=== PATIENT | female | born 1940 | race Caucasian/White ===

== ENCOUNTER → 2018-01-01 12:19 | Outpatient (CLI) | payer MEDICARE, OTHER, SELFPAY ==
--- NOTE | 2018-01-01 12:27 | BI_ITS ---
MAMMOGRAPHY - BILATERAL SCREENING REASON FOR EXAM: Female, 77 years old. Routine annual screening examination. PERTINENT HISTORY: Sister with breast cancer. TECHNIQUE: Digital bilateral breast lizette (3D mammographic acquisition) in the CC and MLO projections. 2-D mediolateral oblique (MLO) and craniocaudad (CC) views of both breasts were obtained. CAD: Full Field Digital Mammography with Computer Added Detection was performed. COMPARISON: Comparison is made with prior study dated November 16, 2016 and November 16, 2015. FINDINGS: Breast Composition: The breasts are heterogeneously dense, which may obscure small masses. I suspect a 6.1 mm slightly irregular nodular density seen on the cranial caudad view of the left breast laterally. The patient will be recalled for additional views including compression spot views in the craniocaudad projection and 90 degree lateral view of the left breast. Stable asymmetry of breast tissue with more breast tissue is seen in the right breast as compared to the left side. No other significant abnormalities are identified. BI/SCREENING MAMM (CAD), BILAT IMPRESSION: Suggestion of a 6.1 mm nodular density in the lateral aspect of the left breast as seen on the craniocaudad view. The patient will be called for additional views of the breast. Recall Side: Left Breast ASSESSMENT CATEGORY: BIRADS Category 0: Incomplete. Need additional imaging evaluation. A letter regarding these results will be sent to the patient by the facility within 30 days. Approximately 10% of breast cancers are not detected by mammography. A normal mammogram should not delay biopsy of a clinically suspicious abnormality. [id number] Electronically Signed: Samuel Rhodes MD at 14:24 EST Tel [phone], Service support ,
--- NOTE | 2018-01-01 12:28 | BD_ITS ---
STUDY: DUAL ENERGY X-RAY ABSORPTIOMETRY / DXA REASON FOR EXAM: Female, 77 years old. The patient is postmenopausal. Loss of height. TECHNIQUE: Bone Mineral Density (BMD) measurements of lumbar spine and bilateral hips were obtained. COMPARISON: Comparison is made with prior study dated November 16, 2015. FINDINGS: Lumbar Spine (L1-L4): g/cm2 (1.215) / T-score (0.1) / Z-score (1.9) Findings are suggestive of normal bone density with a low fracture risk. Left Femur Total: g/cm2 (0.768) / T-score (-1.9) / Z-score (-0.1) Left Femoral Neck: g/cm2 (0.681) / T-score (-2.6) / Z-score (-0.6) Right Femur Total: g/cm2 (0.826) / T-score (-1.4) / Z-score (0.4) Right Femoral Neck: g/cm2 (0.745) / T-score (-2.1) / Z-score (-0.1) The T-Scores on the most recent prior examination were: Lumbar Spine (L1-L4): There has been improvement of bone density since the previous examination. Left Femur Total: which represents an improvement of 2.3%. Right Femur Total: which represents an improvement of 1.5%. BD/Dexa Bone Density Study IMPRESSION: The patient is considered osteoporotic as outlined below according to World Ivan Organization (WHO) criteria with a high fracture risk. There has been improvement of bone density since the previous examination. Reference Information: The T-score is the number of standard deviations above or below the standard which is normal for young adults at their peak bone mineral density. The World Health Organization (WHO) interprets the T-scores as follows: Above -1 Normal bone density Between -1 and -2.5 Osteopenia Equal to / or below -2.5 Osteoporosis As a practical clinical guideline, osteopenia may be graded as follows: Mild -1 through -1.5 Moderate -1.6 through -2.0 Severe -2.1 through -2.4 The Z-score is the number of standard deviations above or below age-matched controls. A Z-score of less than -1.5 would be considered abnormal. References: 1. NIH Osteoporosis and Related Bone Diseases http://www.osteo.org 2. International Society for Clinical Densitometry http://www.iscd.org 3. National Osteoporosis Foundation http://www.nof.org Electronically Signed: Samuel Rhodes MD at 9:33 EST Tel [phone], Service support ,
--- OUTSIDE RECORDS SUMMARY | 2018-02-13 03:52 | XMS RPT_ITS | Continuity of Care Document ---
:1940 Author Organization [facility] Address [address] [facility] [address] [place] [address] Phone Care Team Providers Name Role Phone Raine Gomez MD Unavailable Ronna Colindres MD Unavailable DANIAL Mayorga Unavailable Unavailable Unavailable Unavailable Problems Name Dates Details Allergic rhinitis (J30.9, 477.9) Comments: can take claritin prn Status: Active Bilateral hearing loss, unspecified hearing loss type (H91.93, 389.9) Comments: at this point not affect ADL if does then will look to get. high freq. Status: Active BMI 26.0-26.9,adult (Z68.26, V85.22) Status: Active BMI 27.0-27.9,adult (Z68.27, V85.23) Comments: 27.1 Status: Active Colon polyps (K63.5, 211.3) Comments: 10/11, 11-15, 11-20 good Status: Active Current nonsmoker (Renamed from Current non-smoker) (Z78.9, V49.89) Status: Active Deliveries (Parity) Comments: 4 Status: Active Diverticulosis (K57.90, 562.10) Comments: doing okay had episode 7-17. wnat on hadn for bad flare because gets bad fast. on fiber talk about diet. Status: Active Encounter for routine adult health examination with abnormal findings (Z00.01, V70.0) Comments: 104-18 here for [facility] Physical with Dr. Gomez, reviewed with patient all questions. colonoscopy 10-16 due in 10 years. mammogram 11-16-16 and BD due 11-16-15, with Medicare guidelines, pap w as 2014, immunizations are up to date amita check at [facility] for prevnar. dental and eye 2018, 6CIT=, PHQ-9=0, last eye exam was with Dr. Membreno in the summer of 2018 and included glaucoma screening Status: Active Encounter for screening mammogram for breast cancer (Renamed from Visit for screening mammogram) (Z12.31, V76.12) Status: Active GERD (gastroesophageal reflux disease) (K21.9, 530.81) Comments: pepcid workign well had PPI if needs to use spraingly for 2 week course if bad flare. 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 . 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 he uric acid was up withthis Status: Active Pregnancies () Comments: 4 Status: Active Stress reaction (Renamed from Acute reaction to stress) (F43.0, 308.9) Comments: boyfriend has esophageal cancer to liver Status: Active Medications Name Dates Details Pepcid 20 MG Oral Tablet 1 (one) Tablet bid for 0 days Quantity: 60 {Tablet} Refills: 6 Ordered:05-Jul-2017 Jason GARRETT, Raine Ferrer MD, Raine Dunlap Start : 05-Jul-2017 Active Probiotic Mature Adult Oral Capsule 4 qd gummies Active Prolia 60 MG/ML Subcutaneous Solution uad Milliliter 60mg SC q 6 months for 0 days Quantity: 1 {Pre-filled_Pen_Syringe} Refills: 1 Ordered:05-Jul-2017 Jason GARRETT, Raine Escobar MD Start : 05-Jul-2017 Active Vitamin D3 1000 UNIT Oral Capsule 1 qd (1000 UNIT) Active Womens One Daily Oral Tablet 1 qd Active Comments:adalbertomies ACTONEL, 150MG (Oral Tablet) 1 Tablet monthly for 90 days Quantity: 12 {Tablet} Refills: 3 Ordered:27-Apr-2010 Sonia Phillips LPN Start : 02-Nov-2009 End : 27-Apr-2010 Inactive ALIGN, 4MG (Oral Capsule) 1 (one) Capsule Capsule daily for 0 days Quantity: 30 {Capsule} Refills: 0 Ordered:10-Sep-2014 DANIAL Mayorga Start : 08-Jun-2014 End : 10-Sep-2014 Inactive MILAGROS-D 12 HOUR, 60-120MG (Oral Tablet Extended Release 12 Hour) 1 Tablet ER 12HR q12 hr for 0 days Quantity: 20 {Tablet_ER_12HR} Refills: 0 Ordered:06-Jun-2010 Sonia Phillips LPN Start : 27-Apr-2010 End : 06-Jun-2010 Inactive AMOXICILLIN, 875MG (Oral Tablet) 1 Tablet q12h for 7 days Quantity: 14 {Tablet} Refills: 0 Ordered:14-Aug-2012 Karla Tabares CNP Start : 14-Aug-2012 End : 21-Aug-2012 Inactive AMOXICILLIN-POT CLAVULANATE ER, 1000-62.5MG (Oral Tablet Extended Release 12 Hour) 1 Tablet ER 12HR q12 for 10 days Quantity: 20 {Tablet_ER_12HR} Refills: 0 Ordered:02-Sep-2012 Karla Tabares CNP Start : 02-Sep-2012 End : 12-Sep-2012 Inactive Aspirin EC Low Strength 81 MG Oral Tablet Delayed Release 1 (one) Tablet DR Tablet DR qd for 0 days Quantity: 30 {Tablet} Refills: 0 Ordered:05-Jul-2017 DANIAL Mayorga Start : 07-Sep-2015 End : 05-Jul-2017 Inactive Augmentin 875-125 MG Oral Tablet 1 Tablet bid for 10 days Quantity: 20 {Tablet} Refills: 0 Ordered:05-Jul-2017 Jason GARRETT, Raine Ferrer MD, Raine Dunlap Start : 05-Jul-2017 End : 15-Jul-2017 Inactive BACTRIM DS, 800-160MG (Oral Tablet) 1 Tablet bid for 7 days Quantity: 14 {Tablet} Refills: 0 Ordered:23-Jul-2012 Danellemikey ZEKarla Start : 23-Jul-2012 End : 30-Jul-2012 Inactive BENTYL, 10MG (Oral Capsule) 1 (one) Capsule every 6 hours cramping prn for 0 days Quantity: 20 {Capsule} Refills: 0 Ordered:10-Sep-2014 DANIAL Mayorga Start : 03-Sep-2014 End : 10-Sep-2014 Inactive CALCIUM 600, 600MG (Oral Tablet) bid (600 MG) Inactive Cipro 500 MG Oral Tablet 1 (one) Tablet bid for 0 days Quantity: 14 {Tablet} Refills: 0 Ordered:07-Aug-2016 DANIAL Mayorga Start : 30-Mar-2016 End : 07-Aug-2016 Inactive Comments:03-30-16 called into [facility] in [place] [phone] UTI KETEK, 400MG (Oral Tablet) 2 (two) Tablet(s) QD for 5 days Quantity: 10 {Tablet} Refills: 0 Ordered:25-Jan-2006 Sonia Phillips LPN Start : 25-Jan-2006 End : 22-Jun-2006 Inactive Comments:01/25/06 Samples given per db/edith Omeprazole 40 MG Oral Capsule Delayed Release 1 (one) Capsule qd for 0 days Quantity: 30 {Capsule} Refills: 3 Ordered:05-Jul-2017 DANIAL Mayorga Start : 13-Apr-2017 End : 05-Jul-2017 Inactive PROBIOTIC (Oral Capsule) qd Inactive PROMETHAZINE HCL, 25MG (Oral Tablet) 1 (one) Tablet every 6 hours prn for 0 days Quantity: 10 {Tablet} Refills: 0 Ordered:10-Sep-2014 DANIAL Mayorga Start : 03-Sep-2014 End : 10-Sep-2014 Inactive PROVENTIL HFA, 108 (90 Base)MCG/ACT (Inhalation Aerosol Solution) 1 Aerosol Soln tid prn for 0 days Quantity: 1 {Aerosol_Soln} Refills: 0 Ordered:06-Jun-2010 Sonia Phillips LPN Start : 30-May-2010 End : 06-Jun-2010 Inactive VALTREX, 1GM (Oral Tablet) 1 gram Tablet tid for 6 days Quantity: 18 {Tablet} Refills: 0 Ordered:06-Nov-2006 REAGAN AGOSTO CNP Start : 06-Nov-2006 End : 13-Nov-2006 Inactive VITAMIN D3, 2000UNIT (Oral Tablet Chewable) bid (2000 UNIT) Inactive Zithromax Z-Shahid 250 MG Oral Tablet uad Tablet as directed until gone for 0 days Quantity: 1 {Package} Refills: 0 Ordered:12-Apr-2017 DANIAL Mayorga Start : 12-Feb-2017 End : 12-Apr-2017 Inactive Comments:dispense one pack ZOSTAVAX, 61564NUS/0.65ML (Subcutaneous Solution Reconstituted) 1 For Solution once IM for 0 days Quantity: 1 {For_Solution} Refills: 0 Ordered:08-Jul-2012 DANIAL Mayorga Start : 27-May-2012 End : 08-Jul-2012 Inactive CRANBERRY EXTRACT, 250MG (Oral Tablet) qd (250 MG) End : 08-Jun-2014 Discontinued EVISTA, 60MG (Oral Tablet) one QD (60 MG) End : 12-Sep-2007 Discontinued EVISTA, 60MG (Oral Tablet) 1 (one) Tablet QD for 0 days Quantity: 90 {Tablet} Refills: 1 Ordered:08-Jun-2014 Slarb EDGE POLISHER, Yesika Start : 30-Oct-2013 End : 08-Jun-2014 Discontinued HydroCHLOROthiazide 12.5 MG Oral Capsule 1 (one) Capsule qd for 0 days Quantity: 90 {Capsule} Refills: 3 Ordered:01-Sep-2016 Raine Gomez MD, MD, Raine Dunlap Start : 01-Sep-2016 End : 01-Sep-2016 Discontinued Hydrocodone-Acetaminophen 5-325 MG Oral Tablet 1 (one) Tablet Tablet q 6 hours prn for 0 days Quantity: 30 {Tablet} Refills: 0 Ordered:02-Jan-2017 Kathleen Schwartz Start : 14-Mar-2016 End : 02-Jan-2017 Discontinued Comments:thirty MOBIC, 7.5MG (Oral Tablet) 1 Tablet bid prn for 0 days Quantity: 60 {Tablet} Refills: 3 Ordered:08-Jun-2014 Slarb EDGE POLISHER, Yesika Start : 23-Oct-2013 End : 08-Jun-2014 Discontinued Allergies and Adverse Reactions Name Dates Details No Known Allergies (Allergy) Onset: 29-May-2013 Status: Inactive No Known Drug Allergies (Allergy) Status: Active Past Medical History Name Dates Details Abdominal pain (R10.9, 789.00) Comments: ? gastritis, looks viral like viral GE, consider GB, consider PUD. pt has had CT scan in last two months US too all negative except for incidental venous congestion Status: Inactive as of 10-Sep-2014 Abdominal pain (R10.9, 789.00) Comments: upper is resolved, now left lower, checking urine stay on probioticGall bladder xray normal. no labs done but all gone. now pain more localized to llq. she thought where ovaries are. colonscopy about 2 years ago was okay. ? diverticulitis and atb help. i will get CT scan abd rule otu anything more concerning. then if pain returns upper quad then HIDA scan. if pain continues in lower then pelvic us to better see ovaries. Status: Inactive as of 10-Sep-2014 Abnormal EKG (R94.31, 794.31) Comments: with insurance policy abnormal. 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 improve wtih bowel. CT and GB work up negative. ding better. keep hydrated. eating okay now. still some constipated stool. using citrocal. if went more than 4 days with BM then take MOM. had colonscopy [address]. [address] jean. will leave up tto him if want SBFT. Status: Resolved as of 28-May-2015 Cerumen impaction (H61.20, 380.4) Status: Resolved as of 08-Nov-2017 Contusion of other part of head, initial encounter (S00.83XA, 920) Comments: better now no residual Status: Resolved as of 08-Nov-2017 Cough (R05, 786.2) Status: Inactive as of 17-Oct-2012 Dysuria (R30.0, 788.1) Comments: talk about ways to help not get UTI. only 2 in last year. cut back on sugar. some will get cranberries tqablet. lots water. Status: Inactive as of 27-Oct-2013 Fall at home (W19.XXXA, E888.9) Comments: long talk about lifting feet when walk not use both arms to carry and have support hand. handout given will walking regularly and exercise. Status: Resolved as of 08-Nov-2017 Heart burn (R12, 787.1) Comments: better now use prn if get Status: Resolved as of 01-Sep-2016 Herpes zoster without complication (B02.9, 053.9) Comments: ? shingles based on pts previous similar presentation vs dermatitis contact.Pt going on vacation, to return if worsening. Status: Resolved as of 14-Jul-2008 Hyperactive bowel sounds (R19.12, 787.5) Status: Inactive as of 05-Nov-2015 Hyperkalemia (E87.5, 276.7) Comments: recheck Status: Inactive as of 14-Mar-2016 Knee internal derangement, left (M23.92, 717.9) Comments: saw Dr. madsen and xrays good 12-21 Status: Inactive as of 14-Mar-2016 Knee pain (M25.569, 719.46) Comments: put on mobic by Dr. madsen ortho sx in [place]. OA and also tried glucosamin not help amita inject left knee needs injected. 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) Status: Inactive as of 05-Nov-2015 Need for prophylactic vaccination and inoculation against influenza (Z23, V04.81) Status: Resolved as of 08-Jan-2017 Osteopenia (M85.80, 733.90) Comments: bd - Status: Inactive as of 28-May-2015 Other specified viral infection, in conditions classified elsewhere and of unspecified site (B97.89, 079.89) Status: Inactive as of 17-Oct-2012 Overweight (BMI 25.0-29.9) (E66.3, 278.02) Comments: right now where want to be Status: Resolved as of 05-Jul-2017 Polyuria (R35.8, 788.42) Status: Inactive as of 14-Mar-2016 Prediabetes (R73.03, 790.29) Comments: 08-21-16 5.8% good now Status: Resolved as of 02-Jan-2017 Pre-operative clearance (Z01.818, V72.84) Comments: 11-24-13 TKA. will hold evista starting now because DVT increase with that. wlill restart once mobile. will hold mobic 1 week before surgery. told if any signs and symptoms of infectionprior to surgery call. Status: Inactive as of 10-Sep-2014 Right upper quadrant pain (R10.11, 789.01) Status: Inactive as of 05-Nov-2015 Screening for breast cancer (Z12.39, V76.10) Status: Inactive as of 10-Sep-2014 Screening for hyperlipidemia (Z13.220, V77.91) Status: Inactive as of 28-May-2015 Screening for malignant neoplasm of cervix (Z12.4, V76.2) Comments: scope 1-12 good Status: Resolved as of 08-Jan-2017 Sinusitis, chronic (J32.9, 473.9) Comments: better now on zpak Status: Inactive as of 17-Oct-2012 SOB (shortness of breath) on exertion (R06.02, 786.05) Comments: think just deconditioning but had long discussion about heart signs and symptoms if worse--stress. recommend exercise for conditioning--think help in past Status: Resolved as of 14-Jul-2008 Unspecified Diagnosis Status: Inactive as of 17-Oct-2012 Urinary frequency (R35.0, 788.41) Status: Inactive as of 17-Oct-2012 UTI (lower urinary tract infection) (N39.0, 599.0) Status: Inactive as of 10-Sep-2014 Procedures Procedure Dates Details COLONOSCOPY, DIAGNOSTIC (28417) Completed Oct-2005 Comments: adenoma, 11-29-15 Last Pap Smear, Date Completed 25-Aug-2005 left knee replacement 11-24-13 Completed Date Value Details 16-Nov-2016 SCREENING MAMM (CAD), BILAT Result: Comments: See Note; NOTES: [facility] [address] [place] [address] SCREENING MAMM (CAD), BILAT MR#: [id number] Acct: [id number] Name: ARIEL MATA Rep #: [id number] : 1940 F 76 From: Samuel Rhodes MD PCP: Raine Gomez MD Status: REG CLI Study: SCREENING MAMM (CAD), BILAT Date of Exam: 11/16/16 Exam# [id number] Ordering Dr: Raine Gomez MD M AMMOGRAPHY - BILATERAL SCREENING REASON FOR EXAM: Female, 76 years old. Routine annual screening examination. PERTINENT HISTORY: Sister with breast cancer. TECHNIQUE: Digital bilateral breast lizette (3 D mammographic acquisition) in the CC and MLO projections. 2-D mediolateral oblique (MLO) and craniocaudad (CC) views of both breasts were obtained. CAD: Full Field Digital Mammography with Computer Add ed Detection was performed. COMPARISON: Comparison is made with prior examination dated November 16, 2015 and November 03, 2014. FINDINGS: Breast Composition: The b reasts are heterogeneously dense, which may obscure small masses. There are no dominant masses or suspicious calcifications. No other significant abnormalities are identified. There has been no signif icant change since the prior study. HPBI/SCREENING MAMM (CAD), BILAT IMPRESSION: Stable bilateral screening mammogram. Yearly follow-up mammogram recommended. (A) ASSESSMENT CATEGORY: BIRADS Category 1: Negative. A letter regarding these results will be sent to the patient by the facility within 30 days. Ap proximately 10% of breast cancers are not detected by mammography. A normal mammogram should not delay biopsy of a clinically suspicious abnormality. [id number] Electronically Signed: Samuel Rhodes MD at 13:03 EDT Tel [phone], Service support , CC: Raine Gomez MD Blown Film Extrusion Operator: Signed 16-Nov-2015 Bilat Scrn Digital AND CAD Result: Comments: See Note; NOTES: [facility] [address] [place] [address] Verdana 4d Bilat Scrn Digital AND CAD MR#: [id number] Acct: [id number] Name: ARIEL MATA Rep #: [id number] : 1940 F 75 From: Kiara Neves MD PCP: Raine Gomez MD Status: REG CLI Study: Bilat Scrn Digital AND CAD Date of Exam: 11/16/15 Exam# [id number] Ordering Dr: Raine Gomez MAMMOGRAPHY - BILATERAL SCREENING REASON FOR EXAM: Female, 75 years old. Routine annual screening examination. PERTINENT HISTORY: FM HX- SISTER @ 60, COUSIN X 2 AGE? CURRENT HRT X 2YRS. NO PREV S URG'S. PT DOES NOT TOLERATE COMPRESSION TECHNIQUE: Digital bilateral breast lizette (3D mammographic acquisition) in the CC and MLO projections. 2-D mediolateral oblique (MLO) and craniocaudad (CC) views of both breasts were obtained. CAD: Full Field Digital Mammography with Computer Added Detection was performed. COMPARISON: None. FINDINGS: Breast Composition: The breasts are heterogeneously dense, which may obscure small masses. There are no dominant masses or suspicious calcifications. No other significant abnormalities are identified. HPBI/Bilat Scrn Digital AND CAD IMPRESSION: Stable bilateral screening mammogram. Yearly follow-up mammogram recommended. (A) ASS ESSMENT CATEGORY: BIRADS Category 2: Benign. A letter regarding these results will be sent to the patient by the facility within 30 days. Approximately 10% of breast cancers are not detected by mammogr aphy. A normal mammogram should not delay biopsy of a clinically suspicious abnormality. [id number] Electronically Signed: Kiara Neves MD at 15:55 EDT Tel , Service support , CC: Raine Gomez MD Blown Film Extrusion Operator: Signed 16-Nov-2015 Bilat Scrn Digital AND CAD Result: Comments: See Note; NOTES: [facility] [address] [place] [address] Verdana 4d Bilat Scrn Digital AND CAD MR#: [id number] Acct: [id number] Name: ARIEL MATA Rep #: [id number] : 1940 F 75 From: Kiara Neves MD PCP: Raine Gomez MD Status: REG CLI Study: Bilat Scrn Digital AND CAD Date of Exam: 11/16/15 Exam# [id number] Ordering Dr: Raine Gomez ADDENDUM by Kiara Neves MD on 11/18/15 at 1615 HPBI/Bilat Scrn Digital AND CAD 11/18/15 1622 Date cc: Raine Gomez MD * Signed ADDENDUM by Kiara Neves MD on 11/18/15 at 1615 ADDENDUM COMPARISON: Mammograms from November 03, 2014 and October 30 4. Electronically Signed: Kiara Neves MD at 16:15 EDT Tel , Service support [phone], 11/18/15 1615 Date cc: Raine Gomez MD * Meche d MAMMOGRAPHY - BILATERAL SCREENING REASON FOR EXAM: Female, 75 years old. Routine annual screening examination. PERTINENT HISTORY: FM HX- SISTER @ 60, COUSIN X 2 AGE? CURRENT HRT X 2YRS. NO PREV JEREMY G'S. PT DOES NOT TOLERATE COMPRESSION TECHNIQUE: Digital bilateral breast lizette (3D mammographic acquisition) in the CC and MLO projections. 2-D mediolateral oblique (MLO) and craniocaudad (CC) views of both breasts were obtained. CAD: Full Field Digital Mammography with Computer Added Detection was performed. COMPARISON: None. FINDINGS: Breast Composition: The br easts are heterogeneously dense, which may obscure small masses. There are no dominant masses or suspicious calcifications. No other significant abnormalities are identified. [facility]/Bilat Scrn Digital AND CAD IMPRESSION: Stable bilateral screening mammogram. Yearly follow-up mammogram recommended. (A) ASSES SMENT CATEGORY: BIRADS Category 2: Benign. A letter regarding these results will be sent to the patient by the facility within 30 days. Approximately 10% of breast cancers are not detected by mammograp hy. A normal mammogram should not delay biopsy of a clinically suspicious abnormality. [id number] Electronically Signed: Kiara Neves MD at 15:55 EDT Tel , Service support [phone], CC: Raine Gomez MD Blown Film Extrusion Operator: Signed 16-Nov-2015 Dexa Bone Density Study (HP) Result: Comments: See Note; NOTES: [facility] [address] [place] [address] Verdana 4d Dexa Bone Density Study (HP) MR#: [id number] Acct: [id number] Name: DANG MATA Rep #: [id number] : 1940 F 75 From: Samuel Rhodes MD PCP: Raine Gomez MD Status: REG CLI Study: Dexa Bone Density Study (HP) Date of Exam: 11/16/15 Exam# [id number] Ordering Dr: Raine Ruelas i, MD STUDY: DUAL ENERGY X-RAY ABSORPTIOMETRY / DXA REASON FOR EXAM: Female, 75 years old. The patient is postmenopausal. Loss of height. TECHNIQUE: Bone Mineral Density (BMD) measurements of lumbar spine and bilateral hips were obtained. COMPARISON: Comparison is made with prior study dated November 01, 2011. FINDINGS: Lumbar Spine (L1-L4): g/cm2 (1.1 14) / T-score (-0.5) / Z-score (1.2) Findings are suggestive of normal bone density with a low fracture risk. Left Femur Total: g/cm2 (0.751) / T-score (-2.0) / Z-score (-0.3) Left Femoral Neck: g/cm2 (0.688) / T-score (-2.5) / Z-score (-0.6) Right Femur Total: g/cm2 (0.814) / T- score (-1.5) / Z-score (0.2) Right Femoral Neck: g/cm2 (0.724) / T-score (-2.3) / Z-score (-0.4) The T-Scores on the most recent prior examination were: Lumbar Spine (L1-L4): There has been improvement of bone density since the previous examination. Left Femur Total: which represents an improvement of 1.5%. Right Femur T otal: which represents an improvement of 5.2%. HPBD/Dexa Bone Density Study (HP) IMPRESSION: The patient is considered osteopenic at the level o f the femoral neck as outlined below according to World Ivan Organization (WHO) criteria with a high fracture risk. There has been improvement of bone density since the previous examination. Reference Information: The T-score is the number of standard deviations above or below the standard which is normal for young adults at their peak bone mineral density. The W orld Health Organization (WHO) interprets the T-scores as follows: Above -1 Normal bone density Between -1 and -2.5 Osteopenia Equal to / or below -2.5 Osteoporosis As a practical clinical guideline, osteopenia may be graded as follows: Mild -1 through -1.5 Moderate -1.6 through -2.0 Severe -2.1 through -2.4 The Z-score is the number of standard deviations above or below age-matched controls. A Z-s core of less than -1.5 would be considered abnormal. References: 1. NIH Osteoporosis and Related Bone Diseases http://www.osteo.org 2. International Society for Clinical Densitometry http://www.iscd.or g 3. National Osteoporosis Foundation http://www.nof.org Electronically Signed: Samuel Rhodes MD at 12:41 EDT Tel [phone], Service support [phone], CC: Raine Gomez MD Blown Film Extrusion Operator: Signed 03-Nov-2014 Bilat Scrn Digital AND CAD Result: Comments: See Note; NOTES: [facility] [address] [place] [id number] Breast Imaging Report MR#: [id number] Acct: [id number] Name: ARIEL MATA Rep #: [id number] : 1940 F 74 From: Samuel Rhodes MD PCP: Raine Gomez MD Status: REG CLI Study: Bilat Scrn Digital AND CAD Date of Exam: 11/03/14 Exam# [id number] Ordering Dr: Raine Gomez MD MAMMOGRAPHY - BILATERAL SCREENING REASON FOR EXAM: Female, 74 years old. Routine annual screening examination. PERTINENT HISTORY: Sister with breast cancer. TECHNIQUE: Digital examination. M ediolateral oblique (MLO) and craniocaudad (CC) views of both breasts were obtained. CAD: CAD was performed on this study. COMPARISON: Comparison is made with prior study dated October 30, 2013 a nd October 28, 2012. FINDINGS: Breast Composition: The breasts are heterogeneously dense, which may obscure small masses. There are no dominant masses or alejandro picious calcifications. No other significant abnormalities are identified. There has been no significant change since the prior study. IMPRESSION: Stable bilat eral screening mammogram. Yearly follow-up recommended. (A) ASSESSMENT CATEGORY: BIRADS Category 1: Negative. A letter regarding these results will be sent to t he patient by the facility within 30 days. Approximately 10% of breast cancers are not detected by mammography. A normal mammogram should not delay biopsy of a clinically suspicious abnormality. E lectronically Signed: Samuel Rhodes MD at 9:32 EDT Tel [phone], Service support [phone], CC: Raine Gomez MD Blown Film Extrusion Operator: Signed 02-Nov-2014 FLU VAC, SPLIT, >3 YEARS, INTRAMUSC ([id number]) Comments: Lot:[id number]/20Dose:0.5mLRoute:IMSite:L DltdGiven By:ENDY signed Result: Comments: FLU SHOTlot: [id number]: 5*2015dose:.5 mlSite:LT armRoute: ABDULLAHISma Kathy 21-Sep-2014 Upper GI/w Small Bowel Result: Comments: See Note; NOTES: [facility] Imaging Services [address] [place] [address] Radiology Report MR#: [id number] Acct: [id number] Name: ARIEL MATA Rep #: [id number] : 1940 F 74 From: Samuel Rhodes MD PCP: Raine Gomez MD Status: REG CLI Study: Upper GI/w Small Bowel Date of Exam: 09/21/14 Exam# [id number] Ordering Dr: Ronna Colindres MD STUDY: AIR-CONTRAST UPPER GI SERIES AND SMALL BOWEL FOLLOW-THROUGH EXAMINATION. REASON FOR EXAM: Female, 74 years old. Abdominal pain and history of prior intestinal obstruction. FLUOROSCOPY TIME (if ramirez pplied): (1:20) minutes/seconds TECHNIQUE: A history professor film was obtained. Following this, the patient ingested barium. Images of the esophagus, stomach and duodenum were obtained. Following this, a smal l bowel follow-through examination was performed. COMPARISON: None. FINDINGS: On the history professor film, a moderate amount of fecal material is seen in the colon. Phle boliths are seen within the pelvis. There is evidence of degenerative changes of the lumbar spine are The esophagus is unremarkable. There is no evidence of esophageal obstruction. No mass lesion is seen. There is no evidence of gastroesophageal reflux. The stomach and duodenum are unremarkable. There is no evidence of ulceration. No mass lesion is seen. The small bowel transit is normal. There is no evidence of intrinsic or extrinsic small bowel disease. The terminal ileum is unremarkable. IMPRESSION: Unremarkable examination. Electronically Signed: Samuel Rhodes MD at 10:53 EDT Tel [phone], Service support [phone], RAD/Upper GI/w Small Bowel IMPRESSION: Unremarkable examination . Electronically Signed: Samuel Rhodes MD at 10:53 EDT Tel [phone], Service support [phone], CC: Raine Gomez MD; Ronna Colindres MD Blown Film Extrusion Operator: Signed 11-Sep-2014 Emergency Department Summary Result: Comments: See Note; NOTES: [facility] Medical Records Department [address] [place] [address] Emergency Department Summary MR#: [id number] Acct: [id number] Name: ARIEL MATA Rep #: [id number] : 1940 74 From: Tomy Ashton DO PCP: Raine Gomez MD Status: REG CLI DATE OF SERVICE: 09/03/2014 CHIEF COMPLAINT: Abdominal pain. HISTORY OF CHIEF COMPLAINT : A 74-year-old female with abdominal pain that started yesterday. She has had intermittent severe pain about every 3 minutes. She has actually had pain off and on since March and she was seen at a hospital in [place], was started on some antibiotics and then her pain resolved. It went away for a while, but then the pain was coming on intermittently. With this episode, since yesterday she has had several episodes of vomiting. She has had no diarrhea. She denies fever. Food does not seem to affect her pain at all. Apparently, she had a HIDA scan earlier this morning and she has had over the last several months a normal gallbladder ultrasound. PAST MEDICAL HISTORY: None. PAST SURGICAL HISTORY: Includes left knee replacement in November 2013. PRIMARY CARE PHYSICIAN: Fabi Jacobson ALLERGIES: TO HYDROCODONE. SOCIAL HISTORY: The patient does not smoke. She drinks alcohol occasionally. Denies any illicit drug use. PHYSICAL EXAMINATION: VITAL SIGNS: Blood pressure 129/7 7, temperature 98.2, heart rate 83, respiratory rate 16, pulse oximetry 99% on room air. GENERAL APPEARANCE: She is awake and alert, in no acute distress. HEENT: Normocephalic, atraumatic. Pupils are equal and reactive to light. TMs are clear. Mucous membranes are moist. NECK: Supple. CARDIOVASCULAR: Heart has regular rate and rhythm. Pulses +2/4, equal bilaterally in the upper and lower extrem ities. LUNGS: Clear. No rales or wheezes. Chest wall stable. No crepitus. No subcutaneous emphysema. ABDOMEN: Soft, diffusely tender especially in the epigastric region and mid abdomen. There is rashid e guarding. No rebound or rigidity. EXTREMITIES: Intact x4. Muscle strength +5/5. Exam otherwise unremarkable. EMERGENCY DEPARTMENT COURSE: An IV line was established. EKG obtained on arrival showe d a sinus rhythm with a rate of 71 beats per minute with some nonspecific ST changes. CBC with differential performed earlier this morning showed a white count of 12.3; therefore, this was not repeate d this evening. Chemistries and LFTs done this morning were unremarkable. The patient's troponin was less than 0.02. I did do a CT scan of the abdomen and pelvis with IV and p.o. contrast that was re ad by radiology as a small bowel obstruction with no definite etiology for the obstruction. At this point, the patient will have an NG tube placed to low intermittent suction. She was medicated with D ilaudid and Zofran in the Emergency Department. Case will be discussed with Dr. Love who will evaluate the patient for admission. DIAGNOSIS: Small bowel obstruction. DISPOSITION: The patient to be admitted in stable condition. Tomy Ashton DO T: NTS JOB: [id number] 09/11/14 1507 <Electronically signed by Tomy Ashton DO> Date Tomy Ashton DO CC: Raine Gomez MD Date Dictated: 09/04/14147 Date Transcribed: 09/04/14147 Blown Film Extrusion Operator: Signed 03-Sep-2014 Abdomen/Pelvis WITH Contrast Result: Comments: See Note; NOTES: [facility] Imaging Services [address] [place] [address] CAT Scan Report MR#: [id number] Acct: [id number] Name: ARIEL MATA Rep #: [id number] : 1940 F 74 From: Daniel Wilder MD PCP: Raine Gomez MD Status: REG ER Study: Abdomen/Pelvis WITH Contrast Date of Exam: 09/03/14 Exam# [id number] Ordering Dr: Tomy Ashton DO S TUDY: CT ABDOMEN AND PELVIS WITH CONTRAST REASON FOR EXAM: Female, 74 years old. Increasing abdominal pain for more than 24 are RADIATION DOSAGE (If Supplied By Facility): CTDIvol = ( 16.13 ) mGy, DLP = ( 1483.14 ) mGycm TECHNIQUE: Transaxial images were obtained from the dome of the diaphragm to the symphysis pubis with oral contrast. 100ml ml of Isovue 300 contrast was administered. Sagitt al and coronal images were reconstructed. COMPARISON: 06/12/2014 FINDINGS: The visualized lung bases are unremarkable. The visualized portions of the heart are w ithin normal limits. Normal liver. Normal gallbladder and extrahepatic biliary system. Normal spleen. Normal pancreas. Normal bilateral adrenal glands. Normal right kidney. Normal left kidney. The stomach appears distended and there is a small hiatal hernia. There is marked distention of small bowel loops throughout the majority of the abdomen and within the pelvis, abnormal fluid content s een of these loops with air-fluid levels. There appear to be some decompressed or normal caliber small bowel loops of ileum deep within the pelvis and extending to the ileocecal junction, findings co nsistent with distal small bowel obstruction. Transition point appears to be deep within the pelvis near midline. There is diverticulosis seen which appears quite mild involving the sigmoid colon and distal descending segment. There is non-visualization of the appendix. Normal abdominal aorta. Normal inferior vena cava. Normal retroperitoneum. Normal urinary bladder. Normal visualized uterus. Normal abdominal wall. There are diffuse degenerative changes of the visualized lumbar spine. There also appears to be extrusion of air in the epidural space related to the L4-5 disc and extending cephalad posterior to the L4 vertebra, certainly consistent with an annular tear. IMPRESSION: Small bowel obstruction is seen in mid to distal ileum, transition point appearing to be deep within the true pelvis near midline. No apparent etiology for this is demonstrated. Diverticulosis is seen of the distal colon predominantly involving the sigmoid region. Small hiatal hernia is noted, and there is likely an annular tear or disc herniation at L4-5, epidural air seen extending from this disc cephalad. Electronically Signed: Noe Wilder MD 2014 at 1:35 EDT Tel , Service support [phone], CC: Raine Gomez MD; Tomy Ashton DO Blown Film Extrusion Operator: Signed 03-Sep-2014 Hepatobilliary Imaging Result: Comments: See Note; NOTES: [facility] Imaging Services [address] [place] [address] Nuclear Medicine Report MR#: [id number] Acct: [id number] Name: ARIEL MATA Rep #: [id number] : 1940 F 74 From: Thierno Pineda DO PCP: Raine Gomez MD Status: REG CLI Study: Hepatobilliary Imaging Date of Exam: 09/03/14 Exam# [id number] Ordering Dr: Raine Gomez MD CL INICAL: 74-year-old female with reported history of right upper quadrant abdominal pain and nausea. RADIONUCLIDE HEPATOBILIARY SCINTIGRAPHY COMPARISON: Abdominal ultrasound report 06/09/14, CT of the abdomen-pelvis report 06/12/14 FINDINGS: Following the intravenous administration of 5.3 mCi of Tc Mebrofenin, hepatobiliary images reveal: 1. Relatively prompt and homogeneous radiopharmace utical concentration is noted by a normal sized liver. No parenchymal defects are identified. 2. Gallbladder activity is identified at 10 minutes post radiopharmaceutical administration. 3. Small in testinal tract is not visualized during 60 minutes of pre-CCK sequential imaging. Small bowel activity is identified following the administration of cholecystokinin. 4. Washout of the radiopharmaceut ical by the hepatic parenchyma appears qualitatively normal. Cholecystokinin (0.02 ug/kg) was administered intravenously over a 30-minute period. The post CCK gallbladder ejection fraction calculate d at 20 minutes following Cholecystokinin administration was noted to be 74.3 % (normal greater than 35%). During 30 minutes of post CCK imaging, there is no scintigraphic evidence of reflux of the r adiotracer into the common hepatic duct or refilling of the gallbladder. IMPRESSION: 1. NORMAL 99m Tc Mebrofenin hepatobiliary imaging examination with Cholecystokinin. A. A gallbladder ejection fraction calculated to be greater than 35% following the administration of Cholecystokinin makes the probability of functional hepatobiliary disease (gallbladder and/or sphincter of Oddi dyskinesia) and/or organic hepatobiliary disease (chronic acalculous cholecystitis and/or cystic duct syndrome) to be low. (Uzma Cole et al, Journal of Nuclear Medicine 32:1695, 1991). Electronically Signed: Thierno Pineda DO at 12:38 EDT Tel [phone], Service support [phone], CC: Raine Gomez MD Blown Film Extrusion Operator: Signed 25-Jun-2014 Pelvic (Non ) Result: Comments: See Note; NOTES: [facility] Imaging Services [address] [place] [address] Ultrasound Report MR#: [id number] Acct: [id number] Name: ARIEL MATA Rep #: [id number] : 1940 F 74 From: Shilo Spencer DO PCP: Raine Gomez MD Status: REG CLI Study: Pelvic (Non ) Date of Exam: 06/25/14 Exam# [id number] Ordering Dr: Raine Gomez MD STUDY: ULTR ASOUND OF THE FEMALE PELVIS - COMPLETE REASON FOR EXAM: Female, 74 years old. Postmenopausal abdominal pain. TECHNIQUE: Transabdominal and Transvaginal TECHNICAL QUALITY: Adequate. COMPARISON: C T of the abdomen, June 12, 2014. FINDINGS: The uterus is anteverted and is in a midline position. The uterus measures 7.4 x 5.9 x 2.7 cm. Normal uterine cervix. Th e endometrium measures 3 mm in thickness.. There is pleural fluid in the lower uterine canal. There are calcifications within the arcuate arteries of the uterine wall. I.U.D. - The patient does not h ave an I.U.D. The right ovary is not visualized. There is no visualized right adnexal mass or complex lesion. There are prominent vessels the broad ligament and adnexa. The left ovary is not visua lized. There is no visualized left adnexal mass or complex lesion. There were prominent vessels in the left broad ligament as noted on CT. There is no fluid in the cul-de-sac. The distended urinar y bladder had a volume of 285 ml at the time of the exam. IMPRESSION: 1. Minimal fluid in the lower uterine segment. There is no endometrial enlargement. 2. C alcified arcuate vessels within the myometrium. 3. Nonvisualization the ovaries. There are prominent vessels within both broad ligaments consistent with pelvic congestion. These were noted on the CT. Electronically Signed: Shilo Spencer DO at 17:10 EDT Tel [phone], Service support [phone], CC: Raine Gomez MD Blown Film Extrusion Operator: Signed 12-Jun-2014 Abdomen/Pelvis WITH Contrast Result: Comments: See Note; NOTES: [facility] Imaging Services [address] [place] [address] CAT Scan Report MR#: [id number] Acct: [id number] Name: ARIEL MATA Rep #: [id number] : 1940 F 74 From: Shilo Spencer DO PCP: Raine Gomez MD Status: REG CLI Study: Abdomen/Pelvis WITH Contrast Date of Exam: 06/12/14 Exam# [id number] Ordering Dr: Raine Gomez MD STUDY: CT ABDOMEN AND PELVIS WITH CONTRAST REASON FOR EXAM: Female, 74 years old. Left lower quadrant pain for 2 weeks. RADIATION DOSAGE (If Supplied By Facility): CTDIvol = ( 15.61 ) mGy, DLP = ( 1424. 23 ) mGycm TECHNIQUE: Transaxial images were obtained from the dome of the diaphragm to the symphysis pubis with oral contrast. 100 ml of Isovue 300 contrast was administered. Sagittal and coronal i mages were reconstructed. COMPARISON: Abdominal ultrasound, June 09, 2013. FINDINGS: The visualized lung bases are unremarkable. There is a small calcified granu sudeep at the right lung base. The heart appears top normal to slightly enlarged in size. Normal liver. Normal gallbladder and extrahepatic biliary system. Normal spleen. Normal pancreas. Normal yolette ateral adrenal glands. Normal right kidney. Normal left kidney. There is normal uptake and excretion of contrast material. Normal bilateral ureters. Normal visualized stomach. Normal small intestin e. There are multiple sigmoid diverticuli without acute inflammatory change. There is non-visualization of the appendix. Minimal atherosclerotic changes without aneurysm or dissection. Normal infer ior vena cava. Normal retroperitoneum. Normal urinary bladder. Normal uterus. There is no adnexal mass. There is increased vascularity in the left broad ligament suggesting venous congestion with a prominent left gonadal vein. There is no pelvic lymphadenopathy or mass. There is no free air or free fluid within the abdominal cavity. Normal abdominal wall. There are degenerative changes of the lumbar spine and hips. IMPRESSION: 1. Sigmoid diverticulosis without acute inflammatory change. 2. Venous congestion the left broad ligament without evidence of obstruction. 3. Chronic granulomatous changes in the lung. Electronically Signed: Shilo Spencer DO at 11:18 EDT Tel [phone], Service support [phone], CC : Raine Gomez MD Blown Film Extrusion Operator: Signed 09-Jun-2014 Gallbladder Result: Comments: See Note; NOTES: [facility] Imaging Services [address] [place] [address] Ultrasound Report MR#: [id number] Acct: [id number] Name: ARIEL MATA Rep #: [id number] : 1940 F 74 From: Samuel Rhodes MD PCP: Raine Gomez MD Status: REG CLI Study: Gallbladder Date of Exam: 06/09/14 Exam# [id number] Ordering Dr: Raine Gomez MD STUDY: ABDOMINA L ULTRASOUND - RIGHT UPPER QUADRANT REASON FOR VISIT: Female, 74 years old. Right upper quadrant pain. TECHNIQUE: Ultrasound evaluation of the right upper quadrant was performed with real-time and static suaerz-scale imaging. TECHNICAL QUALITY: Adequate. COMPARISON: None. FINDINGS: Liver: The liver measures 12.6 cm. There is normal echogenicity of the l iver. The bile ducts are within normal limits. There is hepatic color flow. The direction of portal flow is hepatopetal. There is no demonstrated mass lesion. Gallbladder: Normal distended gallbladd er. The gallbladder wall measures 1.2 mm. There is a negative sonographic Kelly's sign. There is no pericholecystic fluid. There are no gallstones. Common Bile Duct (C.B.D.): The common bile duct m easures 3.6 mm. Pancreas: Normal size of the head, body and tail of the pancreas. There is normal echogenicity of the pancreas. There is no demonstrated pancreatic mass or cyst. Right Kidney: Norm al size of the right kidney. The right kidney measures 9.6 cm x 4.0 cm x 3.3 cm. Normal renal cortex. The right cortex measures 1.4 cm. There is no demonstrated renal mass or cyst. There is no right hydronephrosis. IMPRESSION: Normal right upper quadrant ultrasound examination. Electronically Signed: Samuel Rhodes MD at 10:36 EDT Tel [phone], Service support [phone], CC: Raine Gomez MD Blown Film Extrusion Operator: Signed 11-Nov-2013 Dexa Bone Density Study (HP) Result: Comments: See Note; NOTES: [facility] Imaging Services [address] [place] [address] Bone Density Report MR#: [id number] Acct: [id number] Name: ARIEL MATA Rep #: [id number] : 1940 F 73 From: Samuel Rhodes MD PCP: Raine Gomez MD Status: REG CLI Study: Dexa Bone Density Study () Date of Exam: 11/11/13 Exam# [id number] Ordering Dr: Raine Gomez MD STUDY: DUAL ENERGY X-RAY ABSORPTIOMETRY / DXA REASON FOR EXAM: Female, 73 years old. Osteoporosis. TECHNIQUE: Bone Mineral Density (BMD) measurements of lumbar spine and bilateral hips were obt ained. COMPARISON: Comparison is made with prior study dated November 01, 2011. FINDINGS: Lumbar Spine (L1-L4): g/cm2 (1.073) / T-score (-0.8) / Z-score (0.9) Findings are suggestive of normal bone density with a low fracture risk. Left Femur Total: g/cm2 (0.740) / T-score (-2.1) / Z-score (-0.5) Left Femoral Neck: g/cm2 (0.704) / T-score (-2.4) / Z-scor e (-0.6) Right Femur Total: g/cm2 (0.774) / T-score (-1.9) / Z-score (-0.3) Right Femoral Neck: g/cm2 (0.674) / T-score (-2.6) / Z-score (-0.8) The T- Scores on the most recent prior examination were : Lumbar Spine (L1-L4): There has been improvement of bone density since the previous examination. Left Femur Total: which represents a worsening of 6.7%. Right Femur Total: which represents a wor sening of 5.7%. IMPRESSION: The patient is considered osteopenic at the level of the femoral neck as outlined below according to World Ivan Organization (WHO) c renato with a moderate fracture risk. There has been worsening of bone density since the previous examination. Reference Information: The T-score is the numbe r of standard deviations above or below the standard which is normal for young adults at their peak bone mineral density. The World Health Organization (WHO) interprets the T-scores as follows: Abo ve -1 Normal bone density Between -1 and -2.5 Osteopenia Equal to / or below -2.5 Osteoporosis As a practical clinical guideline, osteopenia may be graded as follows: Mild -1 through -1.5 Moderate -1.6 through -2.0 Severe -2.1 through -2.4 The Z-score is the number of standard deviations above or below age-matched controls. A Z-score of less than -1.5 would be considered abnormal. Referenc es: 1. NIH Osteoporosis and Related Bone Diseases http://www.osteo.org 2. International Society for Clinical Densitometry http://www.iscd.org 3. National Osteoporosis Foundation http://www.nof.org Electronically Signed: Samuel Rhodes MD at 13:40 EDT Tel [phone], Service support [phone], CC: Raine Gomez MD Blown Film Extrusion Operator: Signed 30-Oct-2013 Bilat Scrn Digital & CAD Result: Comments: See Note; NOTES: [facility] Imaging Services [address] [place] [address] Breast Imaging Report MR#: [id number] Acct: [id number] Name: ARIEL MATA Rep #: [id number] : 1940 F 73 From: Samuel Rhodes MD PCP: Raine Gomez MD Status: REG CLI Exam# [id number] Ordering Dr: Raine Gomez MD MAMMOGRAPHY - BILATERAL SCREENING REASON FOR EXAM: Female, 73 years old. Routine annual screening examination. PERTINENT HISTORY: Non-contributory. TECHNIQUE: Digital examination. Mediolateral oblique (MLO) and craniocaudad (CC) views of both jaquelin sts were obtained. CAD: CAD was performed on this study. COMPARISON: Comparison is made with prior study dated October 28, 2012 and October 26, 2011. FINDI NGS: Breast Composition: There are scattered areas of fibroglandular density. There are no dominant masses or suspicious calcifications. No other significant abnormalities are identified. There has been no significant change since the prior study. IMPRESSION: Stable bilateral screening mammogram. Yearly follow-up recommended. (A) ASSESSMENT CATEGORY: BIRADS Category 2: Benign finding(s). A letter regarding these results will be sent to the patient by the facility within 30 days. Approximately 10% of breast cance rs are not detected by mammography. A normal mammogram should not delay biopsy of a clinically suspicious abnormality. Electronically Signed: Samuel Rhodes MD at 12:50 EDT Tel [phone], Service support [phone], CC: Raine Gomez MD Blown Film Extrusion Operator: Signed 27-Oct-2013 Chest PA and Lateral Result: Comments: See Note; NOTES: [facility] Imaging Services [address] [place] [address] Radiology Report MR#: [id number] Acct: [id number] Name: ARIEL MATA Rep #: [id number] : 1940 F 73 From: New Reyna PCP: Raine Gomez MD Status: REG CLI Study: Chest PA and Lateral Date of Exam: 10/27/13 Exam# [id number] Ordering Dr: Raine Gomez MD STUDY: X-RAY C HEST REASON FOR EXAM: Female, 73 years old. Preop, no complaints. TECHNIQUE: PA and lateral chest. COMPARISON: None. FINDINGS: No focal infiltrates or effu sions. Increased interstitial markings compatible with chronic interstitial lung disease. No pneumothorax. Normal size heart. Normal mediastinum and shawn. Normal visualized pulmonary arteries. Elena l visualized aortic arch and descending thoracic aorta. There are diffuse degenerative changes of the visualized thoracic spine. Normal visualized ribs, clavicles, and shoulders. There is no demon strated abnormality of the visualized soft tissue structures of the upper abdomen. IMPRESSION: No acute cardiopulmonary disease. Electronically Signed: Jolanta Reyna MD at 7:53 EDT Tel [phone], Service support [phone], RAD/Chest PA and Lateral IMPRESSION: No acute cardiopulmonary disease. Elec tronically Signed: New Reyna MD at 7:53 EDT Tel [phone], Service support [phone], CC: Raine Gomez MD Blown Film Extrusion Operator: Signed Immunization Name Dates Details Influenza (3 years and up) on: 05-Nov-2008 Pneumococcal (2 years and up) on: 12-Sep-2007 Family History Unknown Family Member Name Dates Details Daughter 1 Comments: [place] teaching Status: Active Daughter 2 Status: Active Father Comments: prostate cancer, [place] later in life Status: Active Mother Comments: CORI MULLINS Status: Active prostate cancer Status: Active Sister 1 Comments: breast cancer 60's Status: Active Son 1 Status: Active Son 2 Status: Active Social History Name Dates Details Alcohol Use Comments: Occasional alcohol use Status: Active Caffeine Use Comments: 1 cup qd Status: Active Current Work/Study Status: Retired. Status: Active Exercise History: Exercises occasionally. Comments: walk track 3 days a week 20 minutes. Status: Active Living Situation: Lives alone. Comments: , hoahaoism goer Fabiola important in life. second boyfriedn 9-17 Status: Active No Drug Use Status: Active Non Smoker/No Tobacco Use Status: Active Tobacco use: Never smoker. Status: Active Smoking Status Name Dates Details Never smoker Vital Signs Date Test Result Details :52 Temperature 97.9 f Comments: Method: Temporal Pulse 74 /min Comments: Pattern: Regular Respiration Rate 20 /min Comments: Pattern: Unlabored O2 SAT 97 % Comments: Room air BP Systolic 120 mm[Hg] Comments: Patient Position: Sitting; Cuff Location: Left Arm; Cuff Size: Standard BP Diastolic 78 mm[Hg] Comments: Patient Position: Sitting; Cuff Location: Left Arm; Cuff Size: Standard Weight 140 lb Height 60.3 in Body Mass Index Calculated 27.07 kg/m2 Body Surface Area Calculated 1.61 m2 :20 Weight 140 lb Height 61 in Body Mass Index Calculated 26.45 kg/m2 Body Surface Area Calculated 1.62 m2 :22 Temperature 97.9 f Comments: Method: Temporal Pulse 64 /min Comments: Pattern: Regular Respiration Rate 18 /min Comments: Pattern: Unlabored O2 SAT 99 % Comments: Room air BP Systolic 120 mm[Hg] Comments: Patient Position: Sitting; Cuff Location: Left Arm; Cuff Size: Standard BP Diastolic 78 mm[Hg] Comments: Patient Position: Sitting; Cuff Location: Left Arm; Cuff Size: Standard Weight 140 lb Height 61 in Body Mass Index Calculated 26.45 kg/m2 Body Surface Area Calculated 1.62 m2 :59 Temperature 97.2 f Pulse 72 /min Comments: Pattern: Regular Respiration Rate 16 /min Comments: Pattern: Unlabored O2 SAT 99 % Comments: Room air BP Systolic 124 mm[Hg] Comments: Patient Position: Sitting; Cuff Location: Left Arm; Cuff Size: Standard BP Diastolic 82 mm[Hg] Comments: Patient Position: Sitting; Cuff Location: Left Arm; Cuff Size: Standard Weight 147 lb Height 61 in Body Mass Index Calculated 27.78 kg/m2 Body Surface Area Calculated 1.66 m2 :49 Temperature 97.3 f Comments: Method: Temporal Pulse 64 /min Comments: Pattern: Regular Respiration Rate 16 /min Comments: Pattern: Unlabored O2 SAT 98 % Comments: Room air BP Systolic 136 mm[Hg] Comments: Patient Position: Sitting; Cuff Location: Left Arm; Cuff Size: Standard BP Diastolic 84 mm[Hg] Comments: Patient Position: Sitting; Cuff Location: Left Arm; Cuff Size: Standard Weight 147 lb Height 61 in Body Mass Index Calculated 27.78 kg/m2 Body Surface Area Calculated 1.66 m2 [id number] Temperature 97.6 f Comments: Method: Temporal Pulse 74 /min Comments: Pattern: Regular Respiration Rate 20 /min Comments: Pattern: Unlabored O2 SAT 99 % Comments: Room air BP Systolic 120 mm[Hg] Comments: Patient Position: Sitting; Cuff Location: Left Arm; Cuff Size: Standard BP Diastolic 76 mm[Hg] Comments: Patient Position: Sitting; Cuff Location: Left Arm; Cuff Size: Standard Weight 155 lb Height 61 in Body Mass Index Calculated 29.29 kg/m2 Body Surface Area Calculated 1.7 m2 :27 Temperature 97.6 f Comments: Method: Temporal Pulse 76 /min Comments: Pattern: Regular Respiration Rate 20 /min Comments: Pattern: Unlabored O2 SAT 98 % Comments: Room air BP Systolic 126 mm[Hg] Comments: Patient Position: Sitting; Cuff Location: Left Arm; Cuff Size: Standard BP Diastolic 84 mm[Hg] Comments: Patient Position: Sitting; Cuff Location: Left Arm; Cuff Size: Standard Weight 157 lb Height 63 in Body Mass Index Calculated 27.81 kg/m2 Body Surface Area Calculated 1.74 m2 :58 Temperature 97.6 f Comments: Method: Temporal Pulse 74 /min Comments: Pattern: Regular Respiration Rate 18 /min Comments: Pattern: Unlabored O2 SAT 97 % Comments: Room air BP Systolic 120 mm[Hg] Comments: Patient Position: Sitting; Cuff Location: Left Arm; Cuff Size: Standard BP Diastolic 80 mm[Hg] Comments: Patient Position: Sitting; Cuff Location: Left Arm; Cuff Size: Standard Weight 155 lb Height 63 in Body Mass Index Calculated 27.46 kg/m2 Body Surface Area Calculated 1.74 m2 :33 BP Systolic 126 mm[Hg] Comments: Patient Position: Sitting BP Diastolic 84 mm[Hg] Comments: Patient Position: Sitting :19 Comments: patient is nervous Temperature 97.6 f Comments: Method: Temporal Pulse 78 /min Comments: Pattern: Regular Respiration Rate 20 /min Comments: Pattern: Unlabored O2 SAT 98 % Comments: Room air BP Systolic 160 mm[Hg] Comments: Patient Position: Sitting; Cuff Location: Left Arm; Cuff Size: Standard BP Diastolic 100 mm[Hg] Comments: Patient Position: Sitting; Cuff Location: Left Arm; Cuff Size: Standard Weight 155 lb Height 63 in Body Mass Index Calculated 27.46 kg/m2 Body Surface Area Calculated 1.74 m2 :22 Temperature 97.1 f Comments: Method: Temporal Pulse 74 /min Comments: Pattern: Regular Respiration Rate 20 /min Comments: Pattern: Unlabored O2 SAT 100 % Comments: Room air BP Systolic 120 mm[Hg] Comments: Patient Position: Sitting; Cuff Location: Left Arm; Cuff Size: Standard BP Diastolic 78 mm[Hg] Comments: Patient Position: Sitting; Cuff Location: Left Arm; Cuff Size: Standard Weight 156 lb Height 63 in Body Mass Index Calculated 27.63 kg/m2 Body Surface Area Calculated 1.74 m2 :02 Pulse 72 /min Comments: Pattern: Regular Respiration Rate 16 /min Comments: Pattern: Unlabored O2 SAT 98 % Comments: Room air BP Systolic 130 mm[Hg] Comments: Patient Position: Sitting; Cuff Location: Left Arm; Cuff Size: Standard BP Diastolic 78 mm[Hg] Comments: Patient Position: Sitting; Cuff Location: Left Arm; Cuff Size: Standard Weight 148 lb Height 63 in Body Mass Index Calculated 26.22 kg/m2 Body Surface Area Calculated 1.7 m2 :20 Temperature 97.6 f Comments: Method: Temporal Pulse 70 /min Comments: Pattern: Regular Respiration Rate 18 /min Comments: Pattern: Unlabored O2 SAT 97 % Comments: Room air BP Systolic 118 mm[Hg] Comments: Patient Position: Sitting; Cuff Location: Left Arm; Cuff Size: Standard BP Diastolic 74 mm[Hg] Comments: Patient Position: Sitting; Cuff Location: Left Arm; Cuff Size: Standard Weight 148 lb Height 63 in Body Mass Index Calculated 26.22 kg/m2 Body Surface Area Calculated 1.7 m2 :33 Temperature 98.7 f Comments: Method: Temporal Pulse 74 /min Comments: Pattern: Regular Respiration Rate 16 /min Comments: Pattern: Unlabored O2 SAT 99 % Comments: Room air BP Systolic 126 mm[Hg] Comments: Patient Position: Sitting; Cuff Location: Left Arm; Cuff Size: Standard BP Diastolic 70 mm[Hg] Comments: Patient Position: Sitting; Cuff Location: Left Arm; Cuff Size: Standard Weight 148 lb Height 63 in Body Mass Index Calculated 26.22 kg/m2 Body Surface Area Calculated 1.7 m2 :02 Temperature 98.3 f Comments: Method: Oral Pulse 76 /min Comments: Pattern: Regular Respiration Rate 16 /min Comments: Pattern: Unlabored O2 SAT 98 % Comments: Room air BP Systolic 124 mm[Hg] Comments: Patient Position: Sitting; Cuff Location: Left Arm; Cuff Size: Standard BP Diastolic 82 mm[Hg] Comments: Patient Position: Sitting; Cuff Location: Left Arm; Cuff Size: Standard Weight 148 lb Height 63 in Body Mass Index Calculated 26.22 kg/m2 Body Surface Area Calculated 1.7 m2 :19 Temperature 97.6 f Pulse 69 /min Comments: Pattern: Regular Respiration Rate 16 /min Comments: Pattern: Unlabored O2 SAT 98 % Comments: Room air BP Systolic 140 mm[Hg] Comments: Patient Position: Sitting; Cuff Location: Left Arm; Cuff Size: Standard BP Diastolic 90 mm[Hg] Comments: Patient Position: Sitting; Cuff Location: Left Arm; Cuff Size: Standard Weight 148 lb Height 63 in Body Mass Index Calculated 26.22 kg/m2 Body Surface Area Calculated 1.7 m2 :42 Temperature 98.1 f Pulse 78 /min Comments: Pattern: Regular Respiration Rate 16 /min Comments: Pattern: Unlabored O2 SAT 97 % Comments: Room air BP Systolic 132 mm[Hg] Comments: Patient Position: Sitting; Cuff Location: Left Arm; Cuff Size: Standard BP Diastolic 86 mm[Hg] Comments: Patient Position: Sitting; Cuff Location: Left Arm; Cuff Size: Standard Weight 149 lb Height 63 in Body Mass Index Calculated 26.39 kg/m2 Body Surface Area Calculated 1.71 m2 :11 Temperature 97.6 f Comments: Method: Oral Pulse 68 /min Comments: Pattern: Regular Respiration Rate 20 /min Comments: Pattern: Unlabored BP Systolic 122 mm[Hg] Comments: Patient Position: Sitting; Cuff Location: Left Arm; Cuff Size: Standard BP Diastolic 78 mm[Hg] Comments: Patient Position: Sitting; Cuff Location: Left Arm; Cuff Size: Standard Weight 161 lb Height 63 in Body Mass Index Calculated 28.52 kg/m2 Body Surface Area Calculated 1.76 m2 :32 Temperature 97.8 f Comments: Method: Oral Pulse 74 /min Comments: Pattern: Regular Respiration Rate 20 /min Comments: Pattern: Unlabored BP Systolic 126 mm[Hg] Comments: Patient Position: Sitting; Cuff Location: Left Arm; Cuff Size: Standard BP Diastolic 78 mm[Hg] Comments: Patient Position: Sitting; Cuff Location: Left Arm; Cuff Size: Standard Weight 161 lb Height 63 in Body Mass Index Calculated 28.52 kg/m2 Body Surface Area Calculated 1.76 m2 :07 Temperature 98 f Comments: Method: Oral Respiration Rate 16 /min Comments: Pattern: Unlabored BP Systolic 120 mm[Hg] Comments: Patient Position: Sitting; Cuff Location: Left Arm; Cuff Size: Standard BP Diastolic 80 mm[Hg] Comments: Patient Position: Sitting; Cuff Location: Left Arm; Cuff Size: Standard Weight 165 lb Height 63 in Body Mass Index Calculated 29.23 kg/m2 Body Surface Area Calculated 1.78 m2 :51 Temperature 97.6 f Comments: Method: Oral Pulse 62 /min Comments: Pattern: Regular Respiration Rate 18 /min Comments: Pattern: Unlabored BP Systolic 122 mm[Hg] Comments: Patient Position: Sitting; Cuff Location: Left Arm; Cuff Size: Standard BP Diastolic 78 mm[Hg] Comments: Patient Position: Sitting; Cuff Location: Left Arm; Cuff Size: Standard Weight 165 lb Height 63 in Body Mass Index Calculated 29.23 kg/m2 Body Surface Area Calculated 1.78 m2 :36 Temperature 98.3 f Comments: Method: Temporal Pulse 64 /min Comments: Pattern: Regular Respiration Rate 16 /min Comments: Pattern: Unlabored O2 SAT 97 % Comments: Room air BP Systolic 128 mm[Hg] Comments: Patient Position: Sitting; Cuff Location: Left Arm; Cuff Size: Standard BP Diastolic 78 mm[Hg] Comments: Patient Position: Sitting; Cuff Location: Left Arm; Cuff Size: Standard Weight 165.3 lb Height 63 in Body Mass Index Calculated 29.28 kg/m2 Body Surface Area Calculated 1.78 m2 :05 Temperature 98.4 f Pulse 64 /min Comments: Pattern: Regular Respiration Rate 18 /min Comments: Pattern: Unlabored BP Systolic 132 mm[Hg] Comments: Patient Position: Sitting; Cuff Location: Left Arm; Cuff Size: Standard BP Diastolic 84 mm[Hg] Comments: Patient Position: Sitting; Cuff Location: Left Arm; Cuff Size: Standard Weight 165.3 lb Height 63 in Body Mass Index Calculated 29.28 kg/m2 Body Surface Area Calculated 1.78 m2 :04 Temperature 98.2 f Comments: Method: Oral Pulse 70 /min Comments: Pattern: Regular Respiration Rate 20 /min Comments: Pattern: Unlabored BP Systolic 138 mm[Hg] Comments: Patient Position: Sitting; Cuff Location: Left Arm; Cuff Size: Standard BP Diastolic 86 mm[Hg] Comments: Patient Position: Sitting; Cuff Location: Left Arm; Cuff Size: Standard Weight 162 lb Height 63 in Body Mass Index Calculated 28.7 kg/m2 Body Surface Area Calculated 1.77 m2 :00 Temperature 97.6 f Comments: Method: Oral Pulse 70 /min Comments: Pattern: Regular Respiration Rate 20 /min Comments: Pattern: Unlabored BP Systolic 136 mm[Hg] Comments: Patient Position: Sitting; Cuff Location: Left Arm; Cuff Size: Standard BP Diastolic 84 mm[Hg] Comments: Patient Position: Sitting; Cuff Location: Left Arm; Cuff Size: Standard Weight 162 lb Height 63 in Body Mass Index Calculated 28.7 kg/m2 Body Surface Area Calculated 1.77 m2 :13 Temperature 97.8 f Comments: Method: Temporal Pulse 74 /min Comments: Pattern: Regular Respiration Rate 16 /min Comments: Pattern: Unlabored O2 SAT 98 % Comments: Room air Weight 162 lb Height 63 in Body Mass Index Calculated 28.7 kg/m2 Body Surface Area Calculated 1.77 m2 :41 Temperature 98.7 f Comments: Method: Temporal Pulse 72 /min Comments: Pattern: Regular Respiration Rate 16 /min Comments: Pattern: Unlabored O2 SAT 98 % Comments: Room air Weight 162 lb Height 63 in Body Mass Index Calculated 28.7 kg/m2 Body Surface Area Calculated 1.77 m2 :36 Temperature 98.1 f Comments: Method: Oral Pulse 72 /min Comments: Pattern: Regular Respiration Rate 16 /min O2 SAT 98 % Comments: Room air BP Systolic 126 mm[Hg] Comments: Patient Position: Sitting; Cuff Location: Left Arm; Cuff Size: Standard BP Diastolic 74 mm[Hg] Comments: Patient Position: Sitting; Cuff Location: Left Arm; Cuff Size: Standard Weight 162 lb Height 63 in Body Mass Index Calculated 28.7 kg/m2 Body Surface Area Calculated 1.77 m2 :06 Temperature 98 f Comments: Method: Temporal Pulse 74 /min Comments: Pattern: Regular Respiration Rate 16 /min Comments: Pattern: Unlabored O2 SAT 98 % Comments: Room air BP Systolic 124 mm[Hg] Comments: Patient Position: Sitting; Cuff Location: Left Arm; Cuff Size: Standard BP Diastolic 78 mm[Hg] Comments: Patient Position: Sitting; Cuff Location: Left Arm; Cuff Size: Standard Weight 162 lb Height 63 in Body Mass Index Calculated 28.7 kg/m2 Body Surface Area Calculated 1.77 m2 :37 Temperature 98 f Comments: Method: Oral Pulse 76 /min Comments: Pattern: Regular Respiration Rate 20 /min Comments: Pattern: Unlabored BP Systolic 136 mm[Hg] Comments: Patient Position: Sitting; Cuff Location: Left Arm; Cuff Size: Standard BP Diastolic 86 mm[Hg] Comments: Patient Position: Sitting; Cuff Location: Left Arm; Cuff Size: Standard Weight 162 lb Height 63 in Body Mass Index Calculated 28.7 kg/m2 Body Surface Area Calculated 1.77 m2 :21 Temperature 97.8 f Comments: Method: Oral Pulse 74 /min Comments: Pattern: Regular Respiration Rate 18 /min Comments: Pattern: Unlabored BP Systolic 146 mm[Hg] Comments: Patient Position: Sitting; Cuff Location: Left Arm; Cuff Size: Standard BP Diastolic 90 mm[Hg] Comments: Patient Position: Sitting; Cuff Location: Left Arm; Cuff Size: Standard Weight 162 lb Height 63 in Body Mass Index Calculated 28.7 kg/m2 Body Surface Area Calculated 1.77 m2 :08 Temperature 97.3 f Comments: Method: Oral Pulse 78 /min Comments: Pattern: Regular Respiration Rate 16 /min Comments: Pattern: Unlabored BP Systolic 142 mm[Hg] Comments: Patient Position: Sitting; Cuff Location: Left Arm; Cuff Size: Standard BP Diastolic 88 mm[Hg] Comments: Patient Position: Sitting; Cuff Location: Left Arm; Cuff Size: Standard Weight 165.3125 lb Height 63 in Body Mass Index Calculated 29.28 kg/m2 Body Surface Area Calculated 1.78 m2 :51 Temperature 98.3 f Comments: Method: Oral Pulse 88 /min Comments: Pattern: Regular Respiration Rate 20 /min Comments: Pattern: Unlabored BP Systolic 144 mm[Hg] Comments: Patient Position: Sitting; Cuff Location: Left Arm; Cuff Size: Large BP Diastolic 98 mm[Hg] Comments: Patient Position: Sitting; Cuff Location: Left Arm; Cuff Size: Large Weight 164.5625 lb Height 63 in Body Mass Index Calculated 29.15 kg/m2 Body Surface Area Calculated 1.78 m2 :18 Temperature 97.1 f Comments: Method: Oral Pulse 70 /min Comments: Pattern: Regular Respiration Rate 16 /min Comments: Pattern: Unlabored BP Systolic 132 mm[Hg] Comments: Patient Position: Sitting; Cuff Location: Left Arm; Cuff Size: Standard BP Diastolic 80 mm[Hg] Comments: Patient Position: Sitting; Cuff Location: Left Arm; Cuff Size: Standard Weight 164.5625 lb Height 63 in Body Mass Index Calculated 29.15 kg/m2 Body Surface Area Calculated 1.78 m2 :09 Temperature 98.4 f Comments: Method: Oral Pulse 68 /min Comments: Pattern: Regular Respiration Rate 18 /min Comments: Pattern: Unlabored BP Systolic 162 mm[Hg] Comments: Patient Position: Sitting; Cuff Location: Left Arm; Cuff Size: Standard BP Diastolic 90 mm[Hg] Comments: Patient Position: Sitting; Cuff Location: Left Arm; Cuff Size: Standard Weight 164.5625 lb :47 O2 SAT 96 % Comments: Room air Weight 0 lb Height 0 in Head Circumference 0.00 cm :05 Temperature 98.2 f Comments: Method: Oral Pulse 72 /min Comments: Pattern: Regular Respiration Rate 16 /min Comments: Pattern: Unlabored BP Systolic 122 mm[Hg] Comments: Patient Position: Sitting; Cuff Location: Left Arm; Cuff Size: Standard BP Diastolic 82 mm[Hg] Comments: Patient Position: Sitting; Cuff Location: Left Arm; Cuff Size: Standard Weight 168 lb Height 0 in Head Circumference 0.00 cm :59 Temperature 98.2 f Comments: Method: Oral Pulse 62 /min Comments: Pattern: Regular Respiration Rate 16 /min Comments: Pattern: Unlabored BP Systolic 126 mm[Hg] Comments: Patient Position: Sitting; Cuff Location: Left Arm; Cuff Size: Standard BP Diastolic 80 mm[Hg] Comments: Patient Position: Sitting; Cuff Location: Left Arm; Cuff Size: Standard Weight 167.375 lb Height 0 in Head Circumference 0.00 cm :05 Pulse 60 /min Comments: Pattern: Regular Respiration Rate 16 /min Comments: Pattern: Unlabored BP Systolic 124 mm[Hg] Comments: Patient Position: Sitting; Cuff Location: Left Arm; Cuff Size: Standard BP Diastolic 82 mm[Hg] Comments: Patient Position: Sitting; Cuff Location: Left Arm; Cuff Size: Standard Weight 167.375 lb Height 0 in Head Circumference 0.00 cm Results Date Description Value Details :40 Microscopic Examination Comments: PATIENT NOT FASTINGPERFORMED BY: Trly Uniq [id number] [facility] [id number] Bacteria Few (Normal) Mucus Threads Present (Normal) Cast Type Hyaline casts (Normal) Casts Present {/lpf} (Abnormal) Epithelial Cells (non renal) >10 {/hpf} (Abnormal) Range: 0 - 10 RBC 0-2 {/hpf} (Normal) Range: 0 - 2 WBC 6-10 {/hpf} (Abnormal) Range: 0 - 5 :40 URINALYSIS (04045) Comments: PATIENT NOT FASTINGPERFORMED BY: Trly Uniq [id number] [facility] [id number] Microscopic Examination See below: (Normal) Comments: Microscopic was indicated and was performed. Nitrite, Urine Negative (Normal) Urobilinogen,Semi-Qn 0.2 mg/dL (Normal) Range: 0.2-1.0 Bilirubin Negative (Normal) Occult Blood Negative (Normal) Ketones Negative (Normal) Glucose Negative (Normal) Protein Negative (Normal) WBC Esterase 2+ (Abnormal) Appearance Cloudy (Abnormal) Urine-Color Yellow (Normal) pH 5.0 (Normal) Range: 5.0-7.5 Specific Buchanan 1.021 (Normal) Range: 1.005-1.030 :40 CBC WITH MANUAL DIFF Comments: PATIENT NOT FASTINGPERFORMED BY: [facility] [id number] [facility] [id number] Information: NURS DRAW ([id number]) Immature Grans (Abs) 0.0 {x10E3/uL} (Normal) Range: 0.0-0.1 Immature Granulocytes 0 % (Normal) Baso (Absolute) 0.0 {x10E3/uL} (Normal) Range: 0.0-0.2 Eos (Absolute) 0.2 {x10E3/uL} (Normal) Range: 0.0-0.4 Monocytes(Absolute) 0.7 {x10E3/uL} (Normal) Range: 0.1-0.9 Lymphs (Absolute) 3.2 {x10E3/uL} (Abnormal) Range: 0.7-3.1 Neutrophils (Absolute) 1.9 {x10E3/uL} (Normal) Range: 1.4-7.0 Basos 1 % (Normal) Eos 3 % (Normal) Monocytes 12 % (Normal) Lymphs 52 % (Normal) Neutrophils 32 % (Normal) Platelets 203 {x10E3/uL} (Normal) Range: 150-379 RDW 14.1 % (Normal) Range: 12.3-15.4 MCHC 34.1 g/dL (Normal) Range: 31.5-35.7 MCH 30.2 pg (Normal) Range: 26.6-33.0 MCV 89 fL (Normal) Range: 79-97 Hematocrit 41.1 % (Normal) Range: 34.0-46.6 Hemoglobin 14.0 g/dL (Normal) Range: 11.1-15.9 RBC 4.63 {x10E6/uL} (Normal) Range: 3.77-5.28 WBC 6.0 {x10E3/uL} (Normal) Range: 3.4-10.8 30-[id number]-[id number]:40 Metabolic Panel, Comprehensive Comments: PATIENT NOT FASTINGPERFORMED BY: [facility] CenterDrevrc1200 [facility] [id number] ([id number]) ALT (SGPT) 10 [iU]/L (Normal) Range: 0-32 AST (SGOT) 27 [iU]/L (Normal) Range: 0-40 Alkaline Phosphatase 70 [iU]/L (Normal) Range: 39-117 Bilirubin, Total 0.6 mg/dL (Normal) Range: 0.0-1.2 A/G Ratio 1.4 (Normal) Range: 1.2-2.2 Globulin, Total 2.9 g/dL (Normal) Range: 1.5-4.5 Albumin 4.0 g/dL (Normal) Range: 3.5-4.8 Protein, Total 6.9 g/dL (Normal) Range: 6.0-8.5 Calcium 9.1 mg/dL (Normal) Range: 8.7-10.3 Carbon Dioxide, Total 20 mmol/L (Normal) Range: 20-29 Chloride 104 mmol/L (Normal) Range: 96-106 Potassium 4.1 mmol/L (Normal) Range: 3.5-5.2 Comments: Specimen received in contact with cells. No visible hemolysispresent. However GLUC may be decreased and K increased. Clinicalcorrelation indicated. Sodium 142 mmol/L (Normal) Range: 134-144 BUN/Creatinine Ratio 15 (Normal) Range: 12-28 eGFR If Africn Am 60 mL/min/1.73 (Normal) eGFR If NonAfricn Am 52 mL/min/1.73 (Abnormal) Creatinine 1.04 mg/dL (Abnormal) Range: 0.57-1.00 BUN 16 mg/dL (Normal) Range: 8-27 Glucose 92 mg/dL (Normal) Range: 65-99 Comments: Specimen received in contact with cells. No visible hemolysispresent. However GLUC may be decreased and K increased. Clinicalcorrelation indicated. [id number] URINE ERICA CULTURE-IDENTIFICATN Comments: PATIENT NOT FASTINGPERFORMED BY: [facility] [id number] [facility] [id number] Information: SRC:GEOVANNY (64213) Antimicrobial MIHEAD (Normal) Comments: S = Susceptible; I = Intermediate; R = Resistant P = Positive; N = Negative MICS are expressed in micrograms per mL Antibiotic RSLT#1 RSLT#2 RS Susceptibility LT#3 RSLT#4Amoxicillin/Clavulanic Acid SAmpicillin ICefepime SCeftriaxone SCefuroxime ICephalothin ICiprofloxacin RErtapenem SGentamicin SImipenem SLevofloxacin RNitrofurantoin SPipera cillin STetracycline STobramycin STrimethoprim/Sulfa R Result 1 Escherichia coli Comments: 10,000-25,000 colony forming units per mL (Abnormal) Urine Final report Culture,Comprehensive (Abnormal) 12-Jul-20179:21 Urinalysis, Office (83753) UA - LEUKOCYTE ESTERASE Small (Normal) UA - NITRITE Negative (Normal) URINE UROBILINGN JANETH TIMED Normal mg/dL (Normal) UA - PROTEIN Negative mg/dL (Normal) UA - PH 6 (Abnormal) UA - BLOOD Non Hemolyzed Trace (Normal) UA - SPECIFIC GRAVITY 1.020 (Normal) UA - KETONES Negative mg/dL (Normal) UA - BILIRUBIN Negative (Normal) UA - GLUCOSE Negative (Normal) [id number] Renal function Panel (07093) Comments: PATIENT NOT FASTINGPERFORMED BY: [facility] [id number] [facility] [id number] Albumin 4.1 g/dL (Normal) Range: 3.5-4.8 Phosphorus 3.8 mg/dL (Normal) Range: 2.5-4.5 Calcium 9.1 mg/dL (Normal) Range: 8.7-10.3 Carbon Dioxide, Total 23 mmol/L (Normal) Range: 18-29 Comments: Effective July 16, 2017 Carbon Dioxide, Total reference interval will be changing to: Age Male Female 0 days - 30 days 16 - 16 - 31 days - 1 year 15 - 25 15 - 25 2 years - 5 years 17 - 26 17 - 26 6 y ears - 12 years 19 - 19 - 27 >12 years - 29 20 - 29 Chloride 102 mmol/L (Normal) Range: 96-106 Potassium 5.2 mmol/L (Normal) Range: 3.5-5.2 Sodium 141 mmol/L (Normal) Range: 134-144 BUN/Creatinine Ratio 20 (Normal) Range: 12-28 eGFR If Africn Am 62 mL/min/1.73 (Normal) eGFR If NonAfricn Am 54 mL/min/1.73 (Abnormal) Creatinine 1.01 mg/dL (Abnormal) Range: 0.57-1.00 BUN 20 mg/dL (Normal) Range: 8-27 Glucose 87 mg/dL (Normal) Range: 65-99 08-Eaf-13765:29 HgA1C , Office (83799) HgA1C , Office 5.1 % (Normal) Range: 4.6 - 7.1 [id number] Metabolic Panel, Basic Comments: PATIENT NOT FASTINGPERFORMED BY: [facility] CenterFrktxp9994 [facility] [id number] ([id number]) Calcium, Serum 9.2 mg/dL (Normal) Range: 8.7-10.3 Carbon Dioxide, Total 24 mmol/L (Normal) Range: 18-29 Chloride, Serum 101 mmol/L (Normal) Range: 96-106 Potassium, Serum 4.7 mmol/L (Normal) Range: 3.5-5.2 Sodium, Serum 140 mmol/L (Normal) Range: 134-144 BUN/Creatinine Ratio 15 (Normal) Range: 12-28 eGFR If Africn Am 82 mL/min/1.73 (Normal) eGFR If NonAfricn Am 71 mL/min/1.73 (Normal) Creatinine, Serum 0.81 mg/dL (Normal) Range: 0.57-1.00 BUN 12 mg/dL (Normal) Range: 8-27 Glucose, Serum 85 mg/dL (Normal) Range: 65-99 29-Sow-909620:48 HgA1C , Office (61333) HgA1C , Office 5.3 % (Normal) Range: 4.6 - 7.1 :44 POTASSIUM SERUM (70662) Comments: PATIENT NOT FASTINGPERFORMED BY: [id number] [facility] [id number] Potassium, Serum 4.0 mmol/L (Normal) Range: 3.5-5.2 [id number] Microscopic Examination Comments: PATIENT NOT FASTINGPERFORMED BY: [id number] [facility] [id number] Bacteria Few (Normal) Mucus Threads Present (Normal) Epithelial Cells (non renal) 0-10 {/hpf} (Normal) Range: 0 - 10 RBC 3-10 {/hpf} (Abnormal) Range: 0 - 2 WBC >30 {/hpf} (Abnormal) Range: 0 - 5 [id number] URINALYSIS (24994) Comments: PATIENT NOT FASTINGPERFORMED BY: [id number] [facility] [id number] Microscopic Examination See below: (Normal) Comments: Microscopic was indicated and was performed. Nitrite, Urine Negative (Normal) Urobilinogen,Semi-Qn 0.2 mg/dL (Normal) Range: 0.2-1.0 Bilirubin Negative (Normal) Occult Blood Negative (Normal) Ketones Negative (Normal) Glucose Negative (Normal) Protein Negative (Normal) WBC Esterase 3+ (Abnormal) Appearance Clear (Normal) Urine-Color Yellow (Normal) pH 6.5 (Normal) Range: 5.0-7.5 Specific [place] 1.022 (Normal) Range: 1.005-1.030 [id number] Metabolic Panel, Comments: PATIENT NOT FASTINGPERFORMED BY: MADHAVI [facility] [id number] [place] [id number] Information: NURSE DRAW Comprehensive (70852) ALT (SGPT) 13 [iU]/L (Normal) Range: 0-32 AST (SGOT) 31 [iU]/L (Normal) Range: 0-40 Alkaline Phosphatase, S 62 [iU]/L (Normal) Range: 39-117 Bilirubin, Total 0.5 mg/dL (Normal) Range: 0.0-1.2 A/G Ratio 1.2 (Normal) Range: 1.2-2.2 Globulin, Total 3.0 g/dL (Normal) Range: 1.5-4.5 Albumin, Serum 3.7 g/dL (Normal) Range: 3.5-4.8 Protein, Total, Serum 6.7 g/dL (Normal) Range: 6.0-8.5 Calcium, Serum 9.1 mg/dL (Normal) Range: 8.7-10.3 Carbon Dioxide, Total 25 mmol/L (Normal) Range: 18-29 Chloride, Serum 99 mmol/L (Normal) Range: 96-106 Potassium, Serum 3.4 mmol/L (Abnormal) Range: 3.5-5.2 Comments: Client Requested Flag Sodium, Serum 140 mmol/L (Normal) Range: 134-144 BUN/Creatinine Ratio 15 (Normal) Range: 12-28 eGFR If Africn Am 68 mL/min/1.73 (Normal) eGFR If NonAfricn Am 59 mL/min/1.73 (Abnormal) Creatinine, Serum 0.95 mg/dL (Normal) Range: 0.57-1.00 BUN 14 mg/dL (Normal) Range: 8-27 Glucose, Serum 98 mg/dL (Normal) Range: 65-99 :47 HgA1C , Office (72844) HgA1C , Office 5.1 % (Normal) Range: 4.6 - 7.1 :35 Urine Chloride Comments: [facility] [address] [place], [address] UR CL 82 mmol/L (Normal) :35 Urine Potassium Comments: [facility] [address] [place], [address] UR K 28.0 mmol/L (Normal) :35 Urine Sodium Comments: [facility] [address] [place], [address] UR NA 73 mmol/L (Normal) :25 CORTISOL SERUM Comments: Has pt arrived? YBASELINE OR POST MEDICATION STIMULATION?: 60 Min Post MED StimulatiTime Medication Given: [address] [place] [address] [address] [place], [id number](192 CORTISOL 30.60 ug/dL (Abnormal) Range: 3.09-22.40 Comments: Adult (AM) 4.30 - 22.40 ug/dL Adult (PM) 3.09 - 16.66 ug/dL :55 CORTISOL SERUM Comments: Has pt arrived? YBASELINE OR POST MEDICATION STIMULATION?: 30 Min Post MED StimulatiTime Medication Given: [address] [place] [address] [address]mpg[address]inco[address] [place], [address] CORTISOL 24.20 ug/dL (Abnormal) Range: 3.09-22.40 Comments: Adult (AM) 4.30 - 22.40 ug/dL Adult (PM) 3.09 - 16.66 ug/dL :55 Potassium Comments: [facility] [address] [place], [address] K 4.4 mmol/L (Normal) Range: 3.5-5.1 Comments: Slight Hemolysis, Result may be falsely increased. :05 CORTISOL SERUM Comments: Has pt arrived? YBASELINE OR POST MEDICATION STIMULATION?: [facility] [address] [place], [address] CORTISOL 17.30 ug/dL (Normal) Range: 3.09-22.40 Comments: Adult (AM) 4.30 - 22.40 ug/dL Adult (PM) 3.09 - 16.66 ug/dL 52-Hpf-324956:11 Metabolic Panel, Comprehensive Comments: recheck in 3 weeks; PATIENT NOT FASTINGPERFORMED BY: MADHAVI Cardize70 [facility] [id number] (43993) ALT (SGPT) 7 [iU]/L (Normal) Range: 0-32 AST (SGOT) 25 [iU]/L (Normal) Range: 0-40 Alkaline Phosphatase, S 74 [iU]/L (Normal) Range: 39-117 Bilirubin, Total 0.8 mg/dL (Normal) Range: 0.0-1.2 A/G Ratio 1.2 (Normal) Range: 1.1-2.5 Globulin, Total 3.2 g/dL (Normal) Range: 1.5-4.5 Albumin, Serum 3.9 g/dL (Normal) Range: 3.5-4.8 Protein, Total, Serum 7.1 g/dL (Normal) Range: 6.0-8.5 Calcium, Serum 9.5 mg/dL (Normal) Range: 8.7-10.3 Carbon Dioxide, Total 27 mmol/L (Normal) Range: 18-29 Chloride, Serum 97 mmol/L (Normal) Range: 97-108 Potassium, Serum 4.3 mmol/L (Normal) Range: 3.5-5.2 Sodium, Serum 139 mmol/L (Normal) Range: 134-144 BUN/Creatinine Ratio 15 (Normal) Range: 11-26 eGFR If Africn Am 70 mL/min/1.73 (Normal) eGFR If NonAfricn Am 61 mL/min/1.73 (Normal) Creatinine, Serum 0.93 mg/dL (Normal) Range: 0.57-1.00 BUN 14 mg/dL (Normal) Range: 8-27 Glucose, Serum 90 mg/dL (Normal) Range: 65-99 :12 POTASSIUM URINE (96696) Comments: PATIENT NOT FASTINGPERFORMED BY: MADHAVI Hypios Bqpibm6468 [facility] [id number] Information: SRC:UR [id number] START @549AM FINISH Potassium, Urine 37.4 {mmol/24_hr} (Normal) Range: 25.0-125.0 Potassium, Urine 15.6 mmol/L (Normal) 71-Bwl-686858:00 OSMOLALITY URINE (43418) Comments: re check in 4 weeks; PATIENT WAS FASTINGPERFORMED BY: Trly Uniq Zgvtuv3293 [facility] [id number] BY: Brand.net[address] [id number] Osmolality, Urine 551 {mOsmol/kg} (Normal) Comments: 24 hr : 300 - 900 Random: 50 - 1400 After 12hr fluid restriction: >850 95-Npz-597665:00 OSMOLALITY BLOOD (75500) Comments: re check in 4 weeks; PATIENT WAS FASTINGPERFORMED BY: Youboox70 [facility] [id number] BY: Hypios[address] [id number] Osmolality 291 {mOsmol/kg} (Normal) Range: 280-301 39-Kmu-059070:00 Metabolic Panel, Basic Comments: re check in 4 weeks; PATIENT WAS FASTINGPERFORMED BY: Youboox70 [facility] [id number] BY: Hypios[address] [id number] (83412) nical Information: [id number] [facility] [id number] Calcium, Serum 9.3 mg/dL (Normal) Range: 8.7-10.3 Carbon Dioxide, Total 23 mmol/L (Normal) Range: 18-29 Chloride, Serum 100 mmol/L (Normal) Range: 97-108 Potassium, Serum 5.5 mmol/L (Abnormal) Range: 3.5-5.2 Sodium, Serum 141 mmol/L (Normal) Range: 134-144 BUN/Creatinine Ratio 15 (Normal) Range: 11-26 eGFR If Africn Am 70 mL/min/1.73 (Normal) eGFR If NonAfricn Am 61 mL/min/1.73 (Normal) Creatinine, Serum 0.93 mg/dL (Normal) Range: 0.57-1.00 BUN 14 mg/dL (Normal) Range: 8-27 Glucose, Serum 89 mg/dL (Normal) Range: 65-99 99-Jwy-186444:00 Sodium Spot Urine Comments: re check in 4 weeks; PATIENT WAS FASTINGPERFORMED BY: LabCoNewark [facility] Israel Medical CenterWognjb7635 [facility] [id number] BY: LabCoNewton Medical CenterYxqyujwcsx1453 [facility] [id number] (21304) Sodium, Urine 132 mmol/L (Normal) 99-Tel-366589:05 POTASSIUM SERUM (84475) Comments: PATIENT NOT FASTINGPERFORMED BY: LabCo[address] [id number] Information: [id number], [id number] Potassium, Serum 5.5 mmol/L (Abnormal) Range: 3.5-5.2 77-Bkd-697060:01 LIPID PANEL (95997) Comments: PATIENT WAS FASTINGPERFORMED BY: LabCoDavid Ville 7476570 [facility] [id number] Information: [id number] LDL/HDL Ratio 1.3 {ratio_units} (Normal) Range: 0.0-3.2 Comments: LDL/HDL Ratio Men Women 1/2 Avg.Risk 1.0 1.5 Av g.Risk 3.6 3.2 2X Avg.Risk 6.2 5.0 3X Avg.Risk 8.0 6.1 LDL Cholesterol Calc 95 mg/dL (Normal) Range: 0-99 VLDL Cholesterol Donovan 19 mg/dL (Normal) Range: 5-40 HDL Cholesterol 71 mg/dL (Normal) Comments: According to ATP-III Guidelines, HDL-C >59 mg/dL is considered anegative risk factor for CHD. Triglycerides 96 mg/dL (Normal) Range: 0-149 Cholesterol, Total 185 mg/dL (Normal) Range: 100-199 43-Krg-056142:05 Lactic Acid Comments: Test performed at:[facility] [address]kti[address] [place], [place] [id number] LACTIC ACID 1.1 mmol/L (Normal) Range: 0.4-2.0 Comments: Specimen moderately hemolyzed. Results may be affected. 39-Got-298032:05 Troponin-I Comments: 'TROP' Serial specimen #1, #2, #3, or #4: 1Test performed at:[facility] [address] [place] [address] TROPONIN-I < 0.02 ng/mL (Normal) Comments: TROPONIN-I EXPECTED VALUES <0.05 NEGATIVE 0.06 - 0.59 AT RISK OF MA > OR = 0.60 SUGGEST MA :21 CBC W/Diff, Automated Comments: Test performed at:[facility] [address] [place] [address] Absolute Lymph 0.72 {X10_3/ul} (Abnormal) Range: 0.83-4.51 Absolute Neut 10.3 {X10_3/uL} (Abnormal) Range: 2.0-7.7 IM GRAN % 0.300 % (Normal) Range: 0.0-0.9 Comments: IG% - Immature Granulocytes (promyelocytes, myelocytes andmetamyelocytes) > 1% indicates that a LEFT SHIFT is Present. BASO% 0.2 % (Normal) Range: 0-1 EO% 0.2 % (Normal) Range: 0-5 MONO% 9.7 % (Normal) Range: 0-10 LY% 5.9 % (Abnormal) Range: 19-41 NEUT% 83.7 % (Abnormal) Range: 47-70 MPV 11.6 fL (Normal) Range: 6.2-12.0 PLT 205 K/mm3 (Normal) Range: 150-450 RDW SD 46.6 fL (Abnormal) Range: 35.1-43.9 RDW CV 14.3 % (Normal) Range: 11.6-14.6 MCHC 35.0 {g/gl} (Normal) Range: 32-36 MCH 31.7 pg (Normal) Range: 27.0-32.0 MCV 90.7 fL (Normal) Range: 81-99 HCT 42.9 % (Normal) Range: 37-47 HGB 15.0 g/dL (Normal) Range: 12.0-15.0 RBC 4.73 {M/mm3} (Normal) Range: 4.2-5.4 WBC 12.3 K/mm3 (Abnormal) Range: 4.4-11.0 :21 Comprehensive Metabolic Profil Comments: Test performed at:[facility] Xvguzkmcts5586 [facility] [place] [address] GAP 9 (Normal) Range: 5-15 CO2 26.0 mmol/L (Normal) Range: 21.0-32.0 CL 107 mmol/L (Normal) Range: 98-107 K 4.4 mmol/L (Normal) Range: 3.5-5.1 NA 142 mmol/L (Normal) Range: 136-145 T BILI 0.50 mg/dL (Normal) Range: 0.20-1.00 ALT 13 U/L (Normal) Range: 12-78 ALK P 62 U/L (Normal) Range: 50-136 AST 22 U/L (Normal) Range: 15-37 CA 8.5 mg/dL (Normal) Range: 8.5-10.1 A/G 0.9 {RATIO} (Normal) Range: 0.9-2.4 GLOB 3.7 g/dL (Abnormal) Range: 2.3-3.5 ALB 3.3 g/dL (Abnormal) Range: 3.4-5.0 T PROT 7.0 g/dL (Normal) Range: 6.4-8.2 BUN/CRE 23.4 {RATIO} (Abnormal) Range: 10-20 CREAT,SERUM 0.77 mg/dL (Normal) Range: 0.55-1.20 Comments: Please note revised CREATININE reference range ivfhzinep70/22/2015. BUN 18 mg/dL (Normal) Range: 7-18 GLU 118 mg/dL (Abnormal) Range: 70-110 Comments: Fasting Glucose result from 110 to <126 mg/dLsuggests IMPAIRED HOMEOSTASIS per A.D.A. criteria. :21 Amylase (05828) Comments: Test performed at:[facility] Fbzidcrkzi7769 [facility] [place] [address] WARD 46 U/L (Normal) Range: 25-115 :21 Lipase (69586) Comments: Test performed at:[facility] Wh[address]rylbadu6513 [facility] [place] [address] LIPASE 110 U/L (Normal) Range: 73-393 :35 Urinalysis, Office (90458) UA - LEUKOCYTE ESTERASE Trace (Normal) UA - NITRITE Negative (Normal) URINE UROBILINGN JANETH TIMED Normal mg/dL (Normal) UA - PROTEIN Negative mg/dL (Normal) UA - SPECIFIC GRAVITY 1.030 (Abnormal) UA - KETONES Negative mg/dL (Normal) UA - BILIRUBIN Negative (Normal) UA - GLUCOSE Negative (Normal) :31 Amylase Comments: Test performed at:[facility] [address] [place] [address] WARD 48 U/L (Normal) Range: 25-115 12-Jun-20148:31 CBC-Complete Blood Cnt No Diff Comments: Test performed at:[facility] Phigvtpgvs9418 [facility] [place] [address] MPV 10.3 fL (Normal) Range: 6.2-12.0 PLT 214 K/mm3 (Normal) Range: 150-450 RDW SD 47.6 fL (Abnormal) Range: 35.1-43.9 RDW CV 14.3 % (Normal) Range: 11.6-14.6 MCHC 33.6 {g/gl} (Normal) Range: 32-36 MCH 30.3 pg (Normal) Range: 27.0-32.0 MCV 90.4 fL (Normal) Range: 81-99 HCT 42.3 % (Normal) Range: 37-47 HGB 14.2 g/dL (Normal) Range: 12.0-15.0 RBC 4.68 {M/mm3} (Normal) Range: 4.2-5.4 WBC 6.5 K/mm3 (Normal) Range: 4.4-11.0 :31 Comprehensive Metabolic Profil Comments: Test performed at:[facility] [address] [place] [address] GAP 6 (Normal) Range: 5-15 CO2 27.0 mmol/L (Normal) Range: 21.0-32.0 CL 104 mmol/L (Normal) Range: 98-107 K 3.8 mmol/L (Normal) Range: 3.5-5.1 NA 137 mmol/L (Normal) Range: 136-145 T BILI 0.60 mg/dL (Normal) Range: 0.00-4.00 ALT 12 U/L (Normal) Range: 12-78 ALK P 64 U/L (Normal) Range: 50-136 AST 24 U/L (Normal) Range: 15-37 CA 8.5 mg/dL (Normal) Range: 8.5-10.1 A/G 0.9 {RATIO} (Normal) Range: 0.9-2.4 GLOB 4.2 g/dL (Normal) Range: 2.7-4.2 ALB 3.7 g/dL (Normal) Range: 3.4-5.0 T PROT 7.9 g/dL (Normal) Range: 6.4-8.2 BUN/CRE 15.0 {RATIO} (Normal) Range: 10-20 CREAT,SERUM 1.0 mg/dL (Normal) Range: 0.6-1.0 BUN 15 mg/dL (Normal) Range: 7-18 GLU 111 mg/dL (Abnormal) Range: 70-110 Comments: Fasting Glucose result from 110 to <126 mg/dLsuggests IMPAIRED HOMEOSTASIS per A.D.A. criteria. :31 Lipase Comments: Test performed at:[facility] Z[address]khxrra1765 [place] [address] LIPASE 122 U/L (Normal) Range: 70-290 10-Jun-20149:19 Urine Culture,Comprehensive Comments: PATIENT NOT FASTINGPERFORMED BY: Upshot6370 [facility] [id number] Information: SRC:[facility] [id number] Result 1 MUG (Normal) Comments: Mixed urogenital flora1,000 Colonies/mL Urine Culture,Comprehensive Final report (Normal) 10-Jun-20148:40 Urinalysis, Office (26834) UA - LEUKOCYTE ESTERASE Moderate (Normal) UA - NITRITE Negative (Normal) URINE UROBILINGN JANETH TIMED Normal mg/dL (Normal) UA - PROTEIN Negative mg/dL (Normal) UA - PH 6.5 (Normal) UA - BLOOD Negative (Normal) UA - SPECIFIC GRAVITY 1.020 (Normal) UA - KETONES Negative mg/dL (Normal) UA - BILIRUBIN Negative (Normal) UA - GLUCOSE Negative (Normal) 28-Ttc-598673:06 PHOSPHORUS (22908) Comments: PATIENT NOT FASTINGPERFORMED BY: Youboox70 [facility] [id number] Information: [id number] Phosphorus, Serum 3.9 mg/dL (Normal) Range: 2.5-4.5 14-Dbo-535306:06 MAGNESIUM (18837) Comments: PATIENT NOT FASTINGPERFORMED BY: [facility]6370 [facility] [id number] Magnesium, Serum 2.2 mg/dL (Normal) Range: 1.6-2.6 30-Fkb-543989:06 CALCIUM, IONIZED (42719) Comments: PATIENT NOT FASTINGPERFORMED BY: [facility]6370 [facility] [id number] Calcium, Ionized, Serum 5.3 mg/dL (Normal) Range: 4.5-5.6 68-Cso-374349:08 Thin Comments: Source.............Cervical;EndocervicalOther..............Post MenopausalNo. of containers..01 CYTYC Thin Prep VialPATIENT NOT FASTINGPERFORMED BY: [address] prep Pap [id number] Information: [id number] (15649) See Note NEGHPV (Normal) Comments: The HPV DNA reflex criteria were not met with this specimen resulttherefore, no HPV testing was performed. . Note: PAPSMR (Normal) Comments: The Pap smear is a screening test designed to aid in the detection ofpremalignant and malignant conditions of the uterine cervix. It is not adiagnostic procedure and should not be used as the sole mean s of detectingcervical cancer. Both false-positive and false-negative reports do occur. . See Note . (Normal) DIAGNOSIS: SPRCS (Normal) Comments: NEGATIVE FOR INTRAEPITHELIAL LESION AND MALIGNANCY.CELLULAR CHANGES ASSOCIATED WITH INFLAMMATION ARE PRESENT.Satisfactory for evaluation. Endocervical and/or squamous metaplasticcells (endocervical com ponent) are present.V76.2 ; Screening for malignant neoplasm of the cervixKerwin Altamirano Process Inspector (ASCP) 01-Brd-34526:22 Microscopic Examination Comments: PATIENT WAS FASTINGPERFORMED BY: Brand.netSaint Joseph Hospital Of KirkwoodWfaxql0095 [facility] [id number] Bacteria None seen (Normal) Epithelial Cells (non renal) 0-10 {/hpf} (Normal) Range: 0 - 10 RBC 0-2 {/hpf} (Normal) Range: 0 - 2 WBC 0-5 {/hpf} (Normal) Range: 0 - 5 :22 CBC W/AUTO DIFF WBC Comments: copy to Dr. Madsen fax [phone]; PATIENT WAS FASTINGPERFORMED BY: Hypios Pajlej6060 [facility] [id number] Information: [id number] (02119) Immature Grans (Abs) 0.0 {x10E3/uL} (Normal) Range: 0.0-0.1 Immature Granulocytes 0 % (Normal) Baso (Absolute) 0.0 {x10E3/uL} (Normal) Range: 0.0-0.2 Eos (Absolute) 0.2 {x10E3/uL} (Normal) Range: 0.0-0.4 Monocytes(Absolute) 0.8 {x10E3/uL} (Normal) Range: 0.1-0.9 Lymphs (Absolute) 3.3 {x10E3/uL} (Abnormal) Range: 0.7-3.1 Neutrophils (Absolute) 3.3 {x10E3/uL} (Normal) Range: 1.4-7.0 Basos 0 % (Normal) Eos 2 % (Normal) Monocytes 10 % (Normal) Lymphs 45 % (Normal) Neutrophils 43 % (Normal) Platelets 217 {x10E3/uL} (Normal) Range: 150-379 RDW 14.4 % (Normal) Range: 12.3-15.4 MCHC 33.7 g/dL (Normal) Range: 31.5-35.7 MCH 30.9 pg (Normal) Range: 26.6-33.0 MCV 92 fL (Normal) Range: 79-97 Hematocrit 41.0 % (Normal) Range: 34.0-46.6 Hemoglobin 13.8 g/dL (Normal) Range: 11.1-15.9 RBC 4.47 {x10E6/uL} (Normal) Range: 3.77-5.28 WBC 7.5 {x10E3/uL} (Normal) Range: 3.4-10.8 :22 PREALBUMIN (44565) Comments: PATIENT WAS FASTINGPERFORMED BY: HypiosNewark Beth Israel Medical CenterFkgkeb8005 [facility] [id number] Prealbumin 18 mg/dL (Abnormal) Range: 20-40 :22 URINALYSIS, W/ MICRO (60144) Comments: PATIENT WAS FASTINGPERFORMED BY: Brand.netCorewell [facility]6370 [facility] [id number] Microscopic Examination See below: (Normal) Comments: Microscopic was indicated and was performed. Nitrite, Urine Negative (Normal) Urobilinogen,Semi-Qn 0.2 mg/dL (Normal) Range: 0.0-1.9 Bilirubin Negative (Normal) Occult Blood Negative (Normal) Ketones Negative (Normal) Glucose Negative (Normal) Protein Negative (Normal) WBC Esterase Trace (Abnormal) Appearance Clear (Normal) Urine-Color Yellow (Normal) pH 6.5 (Normal) Range: 5.0-7.5 Specific Buchanan 1.013 (Normal) Range: 1.005-1.030 :22 METABOLIC PANEL, COMPREHENSIVE Comments: PATIENT WAS FASTINGPERFORMED BY: Brand.netCorewell Health Butterworth Hospital6370 [facility] [id number] (66150) ALT (SGPT) 7 [iU]/L (Normal) Range: 0-32 AST (SGOT) 24 [iU]/L (Normal) Range: 0-40 Alkaline Phosphatase, S 65 [iU]/L (Normal) Range: 39-117 Bilirubin, Total 0.5 mg/dL (Normal) Range: 0.0-1.2 A/G Ratio 1.4 (Normal) Range: 1.1-2.5 Globulin, Total 2.9 g/dL (Normal) Range: 1.5-4.5 Albumin, Serum 4.1 g/dL (Normal) Range: 3.5-4.8 Protein, Total, Serum 7.0 g/dL (Normal) Range: 6.0-8.5 Calcium, Serum 9.0 mg/dL (Normal) Range: 8.6-10.2 Carbon Dioxide, Total 23 mmol/L (Normal) Range: 18-29 Chloride, Serum 100 mmol/L (Normal) Range: 97-108 Potassium, Serum 4.5 mmol/L (Normal) Range: 3.5-5.2 Sodium, Serum 139 mmol/L (Normal) Range: 134-144 BUN/Creatinine Ratio 17 (Normal) Range: 11-26 eGFR If Africn Am 75 mL/min/1.73 (Normal) eGFR If NonAfricn Am 65 mL/min/1.73 (Normal) Creatinine, Serum 0.89 mg/dL (Normal) Range: 0.57-1.00 BUN 15 mg/dL (Normal) Range: 8-27 Glucose, Serum 88 mg/dL (Normal) Range: 65-99 :07 PREALBUMIN (70359) Comments: Forward to Dr Yvonne Madsen at fax phone at [address] [facility] [place] [address]; PATIENT NOT FASTINGPERFORMED BY: Upshot6370 Doctor kineticRed Dot Payment [place] [id number] Prealbumin 19 mg/dL (Abnormal) Range: 20-40 :07 CBC with manual diff (49839) Comments: Forward to Dr Yvonne Madsen at fax phone at [address] [facility] [place] [address]; PATIENT NOT FASTINGPERFORMED BY: Youboox70 Doctor kineticAtrium Health Huntersville 502670 [id number] Information: [id number] Immature Grans (Abs) 0.0 {x10E3/uL} (Normal) Range: 0.0-0.1 Immature Granulocytes 0 % (Normal) Range: 0-2 Baso (Absolute) 0.0 {x10E3/uL} (Normal) Range: 0.0-0.2 Eos (Absolute) 0.2 {x10E3/uL} (Normal) Range: 0.0-0.4 Monocytes(Absolute) 0.7 {x10E3/uL} (Normal) Range: 0.1-0.9 Lymphs (Absolute) 3.3 {x10E3/uL} (Abnormal) Range: 0.7-3.1 Neutrophils (Absolute) 3.6 {x10E3/uL} (Normal) Range: 1.4-7.0 Basos 0 % (Normal) Range: 0-3 Eos 3 % (Normal) Range: 0-5 Monocytes 9 % (Normal) Range: 4-12 Lymphs 42 % (Normal) Range: 14-46 Neutrophils 46 % (Normal) Range: 40-74 Platelets 227 {x10E3/uL} (Normal) Range: 150-379 RDW 14.2 % (Normal) Range: 12.3-15.4 MCHC 33.1 g/dL (Normal) Range: 31.5-35.7 MCH 30.0 pg (Normal) Range: 26.6-33.0 MCV 91 fL (Normal) Range: 79-97 Hematocrit 42.3 % (Normal) Range: 34.0-46.6 Hemoglobin 14.0 g/dL (Normal) Range: 11.1-15.9 RBC 4.66 {x10E6/uL} (Normal) Range: 3.77-5.28 WBC 7.7 {x10E3/uL} (Normal) Range: 3.4-10.8 2-Ude-575783:09 URINE ERICA CULTURE-IDENTIFICATN Comments: PATIENT NOT FASTINGPERFORMED BY: MADHAVI [facility] Qmrqca1963 [facility] [id number] Information: [id number] (48542) Result 1 MUG (Normal) Comments: Mixed urogenital flora10,000-25,000 colony forming units per mL Urine Final report (Normal) Culture,Comprehensive 09-May-20138:48 Urinalysis, Office (35561) UA - LEUKOCYTE ESTERASE Small (Normal) UA - NITRITE Negative (Normal) URINE UROBILINGN JANETH TIMED Normal mg/dL (Normal) UA - PROTEIN Negative mg/dL (Normal) UA - PH 7 (Normal) UA - BLOOD Negative (Normal) UA - SPECIFIC GRAVITY 1.020 (Normal) UA - KETONES Negative mg/dL (Normal) UA - BILIRUBIN Negative (Normal) UA - GLUCOSE Negative (Normal) 26-Iul-330856:07 URINE ERICA CULTURE-IDENTIFICATN Comments: PATIENT NOT FASTINGPERFORMED BY: LabCoNewark Beth Israel Medical CenterPtkdat6467 [facility] [id number] Information: SRC: URINE [id number] (55087) Antimicrobial MIHEAD (Normal) Comments: S = Susceptible; I = Intermediate; R = Resistant P = Positive; N = Negative MICS are expressed in micrograms per mL Antibiotic RSLT#1 RSLT#2 Susceptibility RSLT#3 RSLT#4Amoxicillin/Clavulanic Acid S SAmpicillin R RCefazolin RCefepime S SCeftriaxone R SCefuroxime R SCephalothin R SCiprofloxacin R SErtapenem S SGentamicin S SImipenem S SLevofloxacin R SNitrofurantoin R IPiperacillin R RTetracyc line S STobramycin S STrimethoprim/Sulfa R S Result 1 ECV (Normal) Comments: Escherichia coli, identified by an automated biochemical system.200 Colonies/mL . Result 2 Klebsiella Comments: 200 Colonies/mL . pneumoniae (Normal) Urine Final report Culture,Comprehensive (Normal) 22-Lqh-63729:33 Urinalysis, Office (05789) UA - BILIRUBIN Negative (Normal) UA - BLOOD Non Hemolyzed Trace (Normal) UA - GLUCOSE Negative (Normal) UA - KETONES Negative mg/dL (Normal) UA - LEUKOCYTE ESTERASE Negative (Normal) UA - NITRITE Negative (Normal) UA - PH 7.0 (Normal) UA - PROTEIN Negative mg/dL (Normal) UA - SPECIFIC GRAVITY 1.015 (Normal) URINE UROBILINGN JANETH TIMED Normal mg/dL (Normal) 6-Jnu-143872:01 URINE ERICA CULTURE-IDENTIFICATN Comments: PATIENT NOT FASTINGPERFORMED BY: LabCorewell Health [facility] Hospital6370 [facility] [id number] Information: [id number] ([id number]) Result 1 MUG (Normal) Comments: Mixed urogenital flora50,000-100,000 colony forming units per mL Urine Final report (Normal) Culture,Comprehensive 08-Nov-20129:00 Urinalysis, Office (30394) UA - BILIRUBIN Negative (Normal) UA - BLOOD Negative (Normal) UA - GLUCOSE Negative (Normal) UA - KETONES Negative mg/dL (Normal) UA - LEUKOCYTE ESTERASE Moderate (Normal) UA - NITRITE Negative (Normal) UA - PH 6.0 (Normal) UA - PROTEIN Negative mg/dL (Normal) UA - SPECIFIC GRAVITY 1.020 (Normal) URINE UROBILINGN JANETH TIMED Normal mg/dL (Normal) 90-Fxo-797744:41 Thin prep Pap Comments: Source.............Cervical;EndocervicalNo. of containers..01 CYTYC Thin Prep VialPATIENT NOT FASTINGPERFORMED BY: LabCo[address] [place] [id number] Information: [id number] ([id number]) Note: PAPSMR (Normal) Comments: The Pap smear is a screening test designed to aid in the detection ofpremalignant and malignant conditions of the uterine cervix. It is not adiagnostic procedure and should not be used as the sole mean s of detectingcervical cancer. Both false-positive and false-negative reports do occur. .This liquid based ThinPrep(R) pap test w as screened with theuse of an image guided system.The HPV DNA reflex criteria were not met with this specimen resulttherefore, no HPV testing was performed. . See Note . (Normal) DIAGNOSIS: SPRCS (Normal) Comments: NEGATIVE FOR INTRAEPITHELIAL LESION AND MALIGNANCY.Satisfactory for evaluation. Endocervical and/or squamous metaplasticcells (endocervical component) are present.V76.2 ; Screening for deepika gnant neopla sm of the cervixKailey Christensen Process Inspector (ASCP) [id number] BILAT SCRN DIGITAL & CAD Radiology Report See Note Comments: MAMMOGRAPHY - BILATERAL SCREENING REASON FOR EXAM: Female, 72 years old. Routine annual screeningexamination. PERTINENT HISTORY: Sister with breast cancer. TECHNIQUE: Digital examination. Mediol (Normal) ateral oblique (MLO) andcraniocaudad (CC) views of both breasts were obtained. CAD: CAD wasperformed on this study. COMPARISON: Comparison is made with prior study dated October 25nd August 03, 2010. FINDINGS:The breast composition is heterogeneously dense - ranging from 51% to 75%of the breast tissue. There are no dominant masses or suspicious calcifications . No other significant abnormalities are identified. There has been nosignificant change since the prior study. IMPRESSION:Stable bilateral screening mammogram. Year ly follow-up recommended. (A) ASSESSMENT CATEGORY:BIRADS Category 2: Benign finding(s). A letter regarding these resultswill be sent to the patient by the facility within 30 days. Approximately 10% of breast cancers are not detected by mammography. Anormal mammogram should not delay biopsy of a clinically suspiciousabnormality. Signed:Samuel Rhodes M.D.Oct at 1:41:11 PM [phone] Signed GP/GP If you are the referring physician and would like to consult with theradiologist who provided this interpretation, please contact Danie Goyal at [phone]. If this radiologist is unavailable, youwill be directed to another radiologist to assist. If you are a patient with a question regarding this report, pleasecont actyour referring physician directly. Professional Interpretation Provided By: Zango, Phone , These documents contain legally protected and confidential healthinforma tion intended only for the use of the individual or entity namedabove. If you are not the intended recipient, you are hereby notifiedthatany disclosure, copying, distribution, or other use of these docu ments isstrictly prohibited. If you have received this information in error,pleasenotify the sender immediately and arrange for the return or destructionofthese documents. Dictated on 10/28/12 1341 Hannah Waller MDribed on 10/28/12 1345 by ITS IMPORTSign by Samuel Rhodes MD on 09/23/13 1346 Sign by: Samuel Rhodes MD [id number]-Rsv-[id number]:22 URINE ERICA CULTURE (JANETH Comments: PATIENT NOT FASTINGPERFORMED BY: [facility] CenterCixyst3130 [facility] [id number] Information: SRC:UR [id number] COL COUNT) ([id number]) Result 1 BETAGB (Normal) Comments: Beta hemolytic Streptococcus, group BGreater than 100,000 colony forming units per mLPenicillin and ampicillin are drugs of choice for treatment ofbeta-hemolytic streptococcal infections. Susceptibility testing ofpenicillins and other beta-lactam agents approved by the FDA fortreatment of beta-hemolytic streptococcal infections need not beperformed routinely because nonsusceptible isolates are extreme lyrare in any beta-hemolytic streptococcus and have not been reportedfor Streptococcus pyogenes (group A). (CLSI 2011) Urine Final report (Normal) Culture,Comprehensive :17 Urinalysis, Office (96864) UA - BILIRUBIN Negative (Normal) UA - BLOOD Non Hemolyzed Trace (Normal) UA - GLUCOSE Negative (Normal) UA - KETONES Negative mg/dL (Normal) UA - LEUKOCYTE ESTERASE Small (Normal) UA - NITRITE Negative (Normal) UA - PH 6.0 (Normal) Comments: 5.5 UA - PROTEIN Negative mg/dL (Normal) UA - SPECIFIC GRAVITY 1.025 (Normal) URINE UROBILINGN JANETH TIMED Normal mg/dL (Normal) 52-Ldg-99438:12 URINE ERICA CULTURE-JANETH COL Comments: PATIENT NOT FASTINGPERFORMED BY: [facility] Ynbgqk3013 [facility] [id number] Information: SRC:UR [id number] COUNT ([id number]) Result 1 MUG (Normal) Comments: Mixed urogenital floraGreater than 100,000 colony forming units per mL Urine Culture,Comprehensive Final report (Normal) :10 Urinalysis, Office (99218) UA - BILIRUBIN Negative (Normal) UA - BLOOD Negative (Normal) UA - GLUCOSE Negative (Normal) UA - KETONES Negative mg/dL (Normal) UA - LEUKOCYTE ESTERASE Small (Normal) UA - NITRITE Negative (Normal) UA - PH 7.0 (Normal) UA - PROTEIN Negative mg/dL (Normal) UA - SPECIFIC GRAVITY 1.015 (Normal) URINE UROBILINGN JANETH TIMED Normal mg/dL (Normal) 51-Wxu-051597:10 URINE ERICA CULTURE (JANETH Comments: PATIENT NOT FASTINGPERFORMED BY: [facility]6370 [facility] [id number] Information: SRC: [id number] COL COUNT) (52377) Result 1 BETAGB (Normal) Comments: Beta hemolytic Streptococcus, group BGreater than 100,000 colony forming units per mLPenicillin and ampicillin are drugs of choice for treatment ofbeta-hemolytic streptococcal infections. Susceptibility testing ofpenicillins and other beta-lactam agents approved by the FDA fortreatment of beta-hemolytic streptococcal infections need not beperformed routinely because nonsusceptible isolates are extreme lyrare in any beta-hemolytic streptococcus and have not been reportedfor Streptococcus pyogenes (group A). (CLSI 2011) Urine Final report (Normal) Culture,Comprehensive 48-Xhl-91722:48 Urinalysis, Office (09472) UA - BILIRUBIN Negative (Normal) UA - BLOOD Hemolyzed Small (Normal) UA - GLUCOSE Negative (Normal) UA - KETONES Small mg/dL (Normal) UA - LEUKOCYTE ESTERASE Large (Normal) UA - NITRITE Negative (Normal) UA - PH 6.0 (Normal) UA - PROTEIN Negative mg/dL (Normal) UA - SPECIFIC GRAVITY 1.025 (Normal) URINE UROBILINGN JANETH TIMED Normal mg/dL (Normal) [id number]-[id number]:58 URINE ERICA CULTURE-IDENTIFICATN Comments: PATIENT NOT FASTINGPERFORMED BY: [facility] CenterWuehch2921 [facility] [id number] Information: [id number] ([id number]) Result 2 BETAGB (Normal) Comments: Beta hemolytic Streptococcus, group BGreater than 100,000 colony forming units per mLPenicillin and ampicillin are drugs of choice for treatment ofbeta-hemolytic streptococcal infections. Susceptibility testing ofpenicillins and other beta-lactam agents approved by the FDA fortreatment of beta-hemolytic streptococcal infections need not beperformed routinely because nonsusceptible isolates are extreme lyrare in any beta-hemolytic streptococcus and have not been reportedfor Streptococcus pyogenes (group A). (CLSI 2011) S = Susceptible; I = Intermediate; R = Resistant P = Positive; N = Negative MICS are expressed in micrograms per mL Antibiotic RSLT#1 RSLT#2 RSLT#3 RSLT#4Amoxicillin/Clavulanic Acid SAmpicillin ICefazolin SCefepime SCeftriaxone SCefuroxime ICephalothin RCiprofloxacin RESBL NErtapenem SGentamicin SImipenem SLevofloxacin RNitrofurantoin SPiperacillin STetracycline STobramycin STrimethoprim/Sulfa R Result 1 Escherichia coli Comments: 800 Colonies/mL (Normal) Urine Final report (Normal) Culture,[facility] [id number]-Pxd-[id number]:46 Urinalysis, Office (94638) UA - BILIRUBIN Negative (Normal) UA - BLOOD Non Hemolyzed Trace (Normal) UA - GLUCOSE Negative (Normal) UA - KETONES Negative mg/dL (Normal) UA - LEUKOCYTE ESTERASE Small (Normal) UA - NITRITE Negative (Normal) UA - PH 7.0 (Normal) UA - PROTEIN Negative mg/dL (Normal) UA - SPECIFIC GRAVITY 1.015 (Normal) URINE UROBILINGN JANETH TIMED Normal mg/dL (Normal) 09-Sxy-055625:00 URINE ERICA CULTURE-JANETH COL Comments: PATIENT NOT FASTINGPERFORMED BY: MADHAVI [employer]70 [facility] [id number] Information: SRC:UR [id number] COUNT ([id number]) Result 1 MUG (Normal) Comments: Mixed urogenital flora10,000-25,000 colony forming units per mL Urine Final report (Normal) Culture,[facility] 92-Goh-[id number]:35 Urinalysis, Office (84692) UA - BILIRUBIN Negative (Normal) UA - BLOOD Negative (Normal) UA - GLUCOSE Negative (Normal) UA - KETONES Negative mg/dL (Normal) UA - LEUKOCYTE ESTERASE Trace (Normal) UA - NITRITE Negative (Normal) UA - PH 7.0 (Normal) UA - PROTEIN Negative mg/dL (Normal) UA - SPECIFIC GRAVITY 1.015 (Normal) URINE UROBILINGN JANETH TIMED 2 mg/dL (Normal) 25-Vpt-64572:38 CALCIFIDIOL (66848) VIT D 25 Comments: PATIENT WAS FASTINGPERFORMED BY: [employer] [facility] [id number] Vitamin D, 25-Hydroxy 37.7 ng/mL (Normal) Range: 30.0-100.0 Comments: Vitamin D deficiency has been defined by the [place] of[place]icine and an Endocrine Society practice guideline as alevel of serum 25-OH vitamin D less than 20 ng/mL (1,2).The Endocrine Society went on to further define vitamin Dinsufficiency as a level between 21 and 29 ng/mL (2).1. IOM ([place] of Medicine). 2010. Dietary reference intakes for calcium and D. [place]: The National Academies Press.2. Aaron MF, Curry [place], Viet ALLISON, et al. Evaluation, treatment, and prevention of vitamin D deficiency: an Endocrine Society clinical practice guideline. JCEM. 2010; 96(7):1911-30. :38 Lipid Panel (60350) Comments: PATIENT WAS FASTINGPERFORMED BY: [employer]6370 [facility] [id number] LDL/HDL Ratio 1.1 {ratio_units} (Normal) Range: 0.0-3.2 LDL Cholesterol Calc 81 mg/dL (Normal) Range: 0-99 VLDL Cholesterol Donovan 22 mg/dL (Normal) Range: 5-40 HDL Cholesterol 76 mg/dL (Normal) Comments: According to ATP-III Guidelines, HDL-C >59 mg/dL is considered anegative risk factor for CHD. Triglycerides 111 mg/dL (Normal) Range: 0-149 Cholesterol, Total 179 mg/dL (Normal) Range: 100-199 :38 CBC (Auto) (79398) Comments: PATIENT WAS FASTINGPERFORMED BY: [employer]6370 [facility] [id number] Platelets 207 {x10E3/uL} (Normal) Range: 155-379 Comments: Please note reference interval change MCHC 33.8 g/dL (Normal) Range: 31.5-35.7 RDW 13.9 % (Normal) Range: 12.3-15.4 MCH 30.6 pg (Normal) Range: 26.6-33.0 MCV 90 fL (Normal) Range: 79-97 Hematocrit 40.5 % (Normal) Range: 34.0-46.6 Hemoglobin 13.7 g/dL (Normal) Range: 11.1-15.9 RBC 4.48 {x10E6/uL} (Normal) Range: 3.77-5.28 WBC 7.2 {x10E3/uL} (Normal) Range: 3.4-10.8 Comments: Please note reference interval change :38 Metabolic Panel, Comments: PATIENT WAS FASTINGPERFORMED BY: [facility] CenterNdaeht9189 [facility] [id number] Information: [id number] Comprehensive (10865) ALT (SGPT) 7 [iU]/L (Normal) Range: 0-32 AST (SGOT) 20 [iU]/L (Normal) Range: 0-40 Alkaline Phosphatase, S 69 [iU]/L (Normal) Range: 45-108 Bilirubin, Total 0.5 mg/dL (Normal) Range: 0.0-1.2 A/G Ratio 1.2 (Normal) Range: 1.1-2.5 Globulin, Total 3.3 g/dL (Normal) Range: 1.5-4.5 Albumin, Serum 3.8 g/dL (Normal) Range: 3.5-4.8 Protein, Total, Serum 7.1 g/dL (Normal) Range: 6.0-8.5 Calcium, Serum 9.1 mg/dL (Normal) Range: 8.6-10.2 Carbon Dioxide, Total 23 mmol/L (Normal) Range: 19-28 Chloride, Serum 103 mmol/L (Normal) Range: 97-108 Potassium, Serum 3.9 mmol/L (Normal) Range: 3.5-5.2 Sodium, Serum 138 mmol/L (Normal) Range: 134-144 BUN/Creatinine Ratio 22 (Normal) Range: 11-26 eGFR If Africn Am 74 mL/min/1.73 (Normal) eGFR If NonAfricn Am 65 mL/min/1.73 (Normal) Creatinine, Serum 0.90 mg/dL (Normal) Range: 0.57-1.00 BUN 20 mg/dL (Normal) Range: 8-27 Glucose, Serum 86 mg/dL (Normal) Range: 65-99 78-Zrj-48088:09 Urinalysis, Office (90313) UA - BILIRUBIN Negative (Normal) UA - BLOOD Negative (Normal) UA - GLUCOSE Negative (Normal) UA - KETONES Negative mg/dL (Normal) UA - LEUKOCYTE ESTERASE Trace (Normal) UA - NITRITE Negative (Normal) UA - PH 6.0 (Normal) UA - PROTEIN Negative mg/dL (Normal) UA - SPECIFIC GRAVITY 1.020 (Normal) URINE UROBILINGN JANETH TIMED Normal mg/dL (Normal) 04-Ylz-72329:09 DEXA BONE DENSITY STUDY (HP) Radiology Report See Note (Normal) Comments: PROCEDURE: DUAL ENERGY X-RAY ABSORPTIOMETRY / DXA REASON FOR EXAM: Female, 71 years old. Osteopenia. TECHNIQUE: Bone Mineral Density (BMD) measurements of lumbar spine andbilateral hips were obtai mariann. COMPARISON: Comparison is made with prior study dated October. FINDINGS: Lumbar Spine (L1-L4): g/cm2 (1.039) / T-score (-1.3) / Z-score (0.3) Left Femur Total: g/cm2 (0.793) / T -score (-1.7) / Z-score (-0.2)Left Femoral Neck: g/cm2 (0.677) / T-score (-2.6) / Z-score (-0.9)Right Femur Total: g/cm2 (0.821) / T-score (-1.5) / Z-score (0.0)Right Femoral Neck: g/cm2 (0 .695) / T-score (-2.5) / Z-score (-0.8) The T-Scores on the most recent prior examination were: Lumbar Spine (L1-L4): which represents an improvement of 1.0%.Left Femur Total: which repres ents a worsening of 7.1%.Right Femur Total: which represents a worsening of 0.5%. IMPRESSION:The patient is considered osteoporotic, as outlined above, according toWorld Health Organization (WHO) jeffrey gross. Fracture risk is high. Reference Information:The T-score is the number of standard deviations above or below thestandard which is normal for young adults at their peak bone mineraldensity. The World Health Organization (WHO) interprets the T-scores asfollows: Above -1 Normal bone densityBetween -1 and -2.5 OsteopeniaEqual to / or below -2.5 Osteoporosis As a practical clinical guideline, osteopenia may be graded as follows:Mild -1 through -1.5Moderate -1.6 through -2.0Severe -2.1 through -2.4 The Z-score is the number of standard deviations above or below age-matchedcontro ls. A Z-score of less than -1.5 would be considered abnormal. References:1. NIH Osteoporosis and Related Bone Diseases http://www.osteo.org2. International Society for Clinical Densitometry http://www .iscd.org3. National Osteoporosis Foundation http://www.nof.org Signed:Samuel Rhodes M.D.November 01, 2011 at 10:15:09 AM [id number] Signed GP/GP If you are the referring phys ician and would like to consult with theradiologist who provided this interpretation, please contact Danie Goyal at [phone]. If this radiologist is unavailable, youwill be directed to a [facility] radiologist to assist. If you are a patient with a question regarding this report, pleasecontactyour referring physician directly. Professional Interpretation Provided By: Zango, Phone , These documents contain legally protected and confidential healthinformation intended only for the use of the individual or entity namedabove. If you are not the intended rec ipient, you are hereby notifiedthatany disclosure, copying, distribution, or other use of these documents isstrictly prohibited. If you have received this information in error,pleasenotify the sender im mediately and arrange for the return or destructionofthese documents. Dictated on 11/01/11824 by Laura Rhodes MDranscribed on 11/01/11 102 by ITS IMPORTSign by Samuel Rhodes MD on 30/01 102 Sign by: Samuel Rhodes MD :07 CBC with manual diff Comments: PATIENT WAS FASTINGPERFORMED BY: [facility]6370 [facility] [id number] Information: [id number] (90741) Immature Grans (Abs) 0.0 {x10E3/uL} (Normal) Range: 0.0-0.1 Immature Granulocytes 0 % (Normal) Range: 0-2 Baso (Absolute) 0.0 {x10E3/uL} (Normal) Range: 0.0-0.2 Eos (Absolute) 0.2 {x10E3/uL} (Normal) Range: 0.0-0.4 Monocytes(Absolute) 0.6 {x10E3/uL} (Normal) Range: 0.1-1.0 Lymphs (Absolute) 2.7 {x10E3/uL} (Normal) Range: 0.7-4.5 Neutrophils (Absolute) 2.6 {x10E3/uL} (Normal) Range: 1.8-7.8 Basos 1 % (Normal) Range: 0-3 Eos 4 % (Normal) Range: 0-7 Monocytes 10 % (Normal) Range: 4-13 Lymphs 43 % (Normal) Range: 14-46 Neutrophils 42 % (Normal) Range: 40-74 Platelets 212 {x10E3/uL} (Normal) Range: 140-415 RDW 14.2 % (Normal) Range: 12.3-15.4 MCHC 33.3 g/dL (Normal) Range: 31.5-35.7 MCH 30.2 pg (Normal) Range: 26.6-33.0 MCV 91 fL (Normal) Range: 79-97 Hematocrit 42.7 % (Normal) Range: 34.0-46.6 Hemoglobin 14.2 g/dL (Normal) Range: 11.1-15.9 RBC 4.70 {x10E6/uL} (Normal) Range: 3.77-5.28 WBC 6.2 {x10E3/uL} (Normal) Range: 4.0-10.5 37-Hhh-93167:07 CALCIFIDIOL (12651) VIT D 25 Comments: PATIENT WAS FASTINGPERFORMED BY: [facility]6370 [facility] [id number] Vitamin D, 25-Hydroxy 47.5 ng/mL (Normal) Range: 30.0-100.0 Comments: Vitamin D deficiency has been defined by the [place] of[place]icine and an Endocrine Society practice guideline as alevel of serum 25-OH vitamin D less than 20 ng/mL (1,2).The Endocrine Society went on to further define vitamin Dinsufficiency as a level between 21 and 29 ng/mL (2).1. IOM ([place] of [employer]). 2010. Dietary reference intakes for calcium and D. [place]: The National AcademCruiseWise Press.2. Aaron MF, Curry EVANS, Viet ALLISON, et al. Evaluation, treatment, and prevention of vitamin D deficiency: an Endocrine Society clinical practice guideline. JCEM. 2010; 96(7):1911-30. 20-Lty-84390:07 Metabolic Panel, Comprehensive Comments: PATIENT WAS FASTINGPERFORMED BY: [facility] Gcckzt4313 [facility] [id number] ([id number]) ALT (SGPT) 7 [iU]/L (Normal) Range: 0-40 AST (SGOT) 22 [iU]/L (Normal) Range: 0-40 Alkaline Phosphatase, S 79 [iU]/L (Normal) Range: 25-165 Bilirubin, Total 0.5 mg/dL (Normal) Range: 0.0-1.2 A/G Ratio 1.5 (Normal) Range: 1.1-2.5 Globulin, Total 2.7 g/dL (Normal) Range: 1.5-4.5 Albumin, Serum 4.0 g/dL (Normal) Range: 3.5-4.8 Protein, Total, Serum 6.7 g/dL (Normal) Range: 6.0-8.5 Calcium, Serum 9.1 mg/dL (Normal) Range: 8.6-10.2 Carbon Dioxide, Total 23 mmol/L (Normal) Range: 20-32 Chloride, Serum 103 mmol/L (Normal) Range: 97-108 Potassium, Serum 4.4 mmol/L (Normal) Range: 3.5-5.2 Sodium, Serum 139 mmol/L (Normal) Range: 134-144 BUN/Creatinine Ratio 19 (Normal) Range: 11-26 eGFR If Africn Am 68 mL/min/1.73 (Normal) eGFR If NonAfricn Am 59 mL/min/1.73 (Abnormal) Creatinine, Serum 0.97 mg/dL (Normal) Range: 0.57-1.00 BUN 18 mg/dL (Normal) Range: 8-27 Glucose, Serum 87 mg/dL (Normal) Range: 65-99 71-Gwb-17364:07 Lipid Panel (26723) Comments: PATIENT WAS FASTINGPERFORMED BY: [facility] CenterIkstoy5456 [facility] [id number] LDL/HDL Ratio 1.2 {ratio_units} (Normal) Range: 0.0-3.2 LDL Cholesterol Calc 87 mg/dL (Normal) Range: 0-99 Comments: Please note reference interval change VLDL Cholesterol Donovan 22 mg/dL (Normal) Range: 5-40 HDL Cholesterol 72 mg/dL (Normal) Comments: According to ATP-III Guidelines, HDL-C >59 mg/dL is considered anegative risk factor for CHD. Triglycerides 111 mg/dL (Normal) Range: 0-149 Comments: Please note reference interval change Cholesterol, Total 181 mg/dL (Normal) Range: 100-199 Comments: Please note reference interval change 52-Goz-143896:46 BILAT SCRN DIGITAL & CAD Radiology Report See Note (Normal) Comments: MAMMOGRAPHY - BILATERAL SCREENING REASON FOR EXAM: Female, 71 years old. Routine annual screeningexamination. PERTINENT HISTORY: Sister with breast cancer. TECHNIQUE: Digital examinat ion. Mediol ateral oblique (MLO) andcraniocaudad (CC) views of both breasts were obtained. CAD: CAD wasperformed on this study. COMPARISON: Comparison is made with prior examinations dated July and [facility] er 2009. FINDINGS:The breast composition is heterogeneously dense. There are no dominant masses or suspicious calcifications. No other significant abnormalities are identified. There has been nosig nificant change since the prior study. IMPRESSION:Stable bilateral screening mammogram. Yearly follow-up recommended. (A) ASSESSMENT CATEGORY:BIRADS Category 2: Benign finding(s). A letter regardin g these resultswill be sent to the patient by the facility within 30 days. Approximately 10% of breast cancers are not detected by mammography. Anormal mammogram should not delay biopsy of a clinically suspiciousabnormality. Signed:Samuel Rhodes M.D.October 26, 2011 at 11:14:07 AM [id number] Signed GP/GP If you are the referring physician and would like to consult with ther adiologist who provided this interpretation, please contact Danie Goyal at [phone]. If this radiologist is unavailable, youwill be directed to another radiologist to assist. If you are a patient with a question regarding this report, pleasecontactyour referring physician directly. Professional Interpretation Provided By: [employer]ango, Phone , These documen ts contain legally protected and confidential healthinformation intended only for the use of the individual or entity namedabove. If you are not the intended recipient, you are hereby notifiedthatany di sclosure, copying, distribution, or other use of these documents isstrictly prohibited. If you have received this information in error,pleasenotify the sender immediately and arrange for the return or d estructionofthese documents. Dictated on 10/26/11 1046 by Laura Rhodes MDranscribed on 10/26/11 1120 by ITS IMPORTSign by Samuel Rhodes MD on 10/26/11 1121 Sign by: Samuel Rhodes MD 11-Sfp-303902:17 Thin prep Pap Comments: Source.............Cervical;EndocervicalNo. of containers..01 CYTYC Thin Prep VialPATIENT NOT FASTINGPERFORMED BY: [facility] [id number] Information: [id number] (90997) Note: PAPSMR (Normal) Comments: The Pap smear is a screening test designed to aid in the detection ofpremalignant and malignant conditions of the uterine cervix. It is not adiagnostic procedure and should not be used as the sole mean s of detectingcervical cancer. Both false-positive and false-negative reports do occur. .This liquid based ThinPrep(R) pap test w as screened with theuse of an image guided system.The HPV DNA reflex criteria were not met with this specimen resulttherefore, no HPV testing was performed. . See Note . (Normal) DIAGNOSIS: SPRCS (Normal) Comments: NEGATIVE FOR INTRAEPITHELIAL LESION AND MALIGNANCY.Satisfactory for evaluation. Endocervical and/or squamous metaplasticcells (endocervical component) are present.V76.2 ; Screening for deepika gndavida neopla sm of the cervixElizabeth July Joe, Process Inspector (ASCP) 66-Nts-914261:04 MANJULA LEON DIGITAL & CAD Radiology Report See Note (Normal) Comments: MAMMOGRAPHY - BILATERAL DIAGNOSTIC REASON FOR EXAM: Female, 70 years old. This is a 6 month follow- upexamination for asymmetric breast tissue. PERTINENT HISTORY: Non- contributory. TECHNIQUE: Digi amadou examination. Mediolateral oblique (MLO) andcraniocaudad (CC) views of both breasts were obtained. CAD: CAD wasperformed on this study. COMPARISON: Comparison is made with prior studies dated Jannd October 27, 2009. FINDINGS:The breast composition is heterogeneously dense. There is evidence ofasymmetry of tissue with more breast tissue is seen in the upper outeraspect of the ri ght breast. This is unchanged. There are no masses or suspicious microcalcifications. No other significant abnormalities are identified. There has been nosignificant change since the prior study. IMPR ESSION:Normal bilateral diagnostic mammogram. One year follow-up recommended. (A) ASSESSMENT CATEGORY:BIRADS Category 2: Benign finding(s). A letter regarding these resultswill be sent to the patient by the facility within 30 days. Approximately 10% of breast cancers are not detected by mammography. Anormal mammogram should not delay biopsy of a clinically suspiciousabnormality. Dictated on 03/01 1223 by Laura Rhodes MDranscribed on 08/03/10 1403 by ITS IMPORTSign by Samuel Rhodes MD on 08/03/10 1404 Sign by: Carmelo GARRETTSamuel :52 UNILAT RT DIAG DIGITAL & CAD Radiology See Note Comments: REPORT MAMMOGRAPHY - UNILATERALDIAGNOSTIC: RIGHT BREAST INDICATION:3 month follow up, requested by pat Report (Normal) ient PERTINENT HISTORY:Sister with history of breast cancer. TECHNIQUE:Digital examination. Mediolateral oblique (MLO) and craniocaudad (CC)views of the breast were obtained. CAD was performed on this study. COMPARISON:September 17, 2007, September 28, 2008, October 25 2009. FINDINGS:The breast composition is heterogeneously dense.There is scattered areas of asymmetric density throughout the breast.Thes e have not significantly changed compared to previous studies.There are no masses or suspicious microcalcifications. No other significant abnormalities are identified. IMPRESSION:Stable mammogram. Laurie use of the short interval between studies anadditional follow-up mammogram in 6 months is recommended. ASSESSMENT CATEGORY:BIRADS Category 3: Probably Benign Finding - Initial Mpena-BvgeeqmlGfgcgv-yw Suggested. A letter regarding these results will be sent tothepatient by the facility. Approximately 10% of breast cancers are not detected by mammography. Anormal mammogram should not delay biopsy of a clinically suspiciousabnormality. Dictated on 01/27/10 1006 by JANNY SALEHTranscribed on 01/31/102230 by ITS IMPORTSign by JANNY SALEH on 01/31/102231 Sign by: JANNY SALEH :18 DEXA BONE DENSITY STUDY (HP) Radiology Report See Note (Normal) Comments: Exam Number: [id number] CLINICAL:The patient is a 61 day old woman who is postmenopausal with pastuse of hormone replacement therapy. EXAMINATION:DUAL ENERGY X-RAY ABSORPTIOMETRY / DEXA. TECH NIQUE:Bone D ensity Measurements (BMD) of lumbar spine and bilateral hipswere obtained using a [employer] scanner.. COMPARISON:2001 at 2006 FINDINGS: Lumbar Spine (L1-L4): g/cm2 (1.012 ) / T-score (-1.4) /Z-score (-0.1 )Left Femur Total: g/cm2 (0.709 ) / T-score (-2.4) / Z-score(-0.9 )Right Femur Total: g/cm2 (0.713 ) / T-score (- 2.3) / Z-score(-0.9) Digital lateral view for e valuation vertebral deformity onlydemonstrates slight loss of anterior height of T7 by ,T8, T9 bone mineral density as compared to the previous study is as follows Lumbar Spine (L1-L4): Decrease 2.1 %.Left Femur Total: Decreased 7 %.Right Femur Total: Not available %. IMPRESSION:The patient is considered osteopenic, as outlined above, accordingto World Health Organizatio n (WHO) criteria. Fracture risk ismoderate. Reference Information:The T-score is the number of standard deviations above or below thestandard which is normal for young adults at their peak bone mineral density. The World Health Organization (WHO) interprets the T-scoresas follows: Above -1 Normal bone densityBetween -1 and -2.5 OsteopeniaEqual to / or below -2.5 Osteoporosi s As a practical clinical guideline, osteopenia may be graded asfollows:Mild -1 through -1.5Moderate -1.6 through -2.0Severe -2.1 through -2.4 The Z-score is the number of standar d deviations above or belowage-matched controls. A Z-score of less than -1.5 would beconsidered abnormal. References:1. NIH Osteoporosis and Related Bone Diseases http://www.osteo.org2. International Society for Clinical Densitometryhttp://www.iscd.org3. National Osteoporosis Foundation http://www.nof.org Reported By: JANNY SALEH M.D. 99-Nas-801168:00 Thin prep Pap Comments: Source.............Cervical;EndocervicalNo. of containers..01 CYTYC Thin Prep VialPATIENT NOT FASTINGPERFORMED BY: [facility] [address] [place] [id number] Information: [id number] ([id number]) Note: PAPSMR (Normal) Comments: The Pap smear is a screening test designed to aid in the detection ofpremalignant and malignant conditions of the uterine cervix. It is not adiagnostic procedure and should not be used as the sole mean s of detectingcervical cancer. Both false-positive and false-negative reports do occur..The HPV DNA reflex criteria were not met with this specimen resulttherefore, no HPV testing was performed.. See Note . (Normal) DIAGNOSIS: SPRCS (Normal) Comments: NEGATIVE FOR INTRAEPITHELIAL LESION AND MALIGNANCY.THIS SPECIMEN WAS RESCREENED PART OF OUR CYBER TRANSPORT SYSTEMS SPECIALIST PROGRAM.Satisfactory for evaluation. Endocervical and/or squamous metaplasticc ells (endoce rvical component) are present.V76.2 ; Screening for malignant neoplasm of the cervixKlaudia Nelson, CytotechnologistNatalia Cutler, Supervisory Process Inspector (ASCP) 43-Hme-22372:29 Metabolic Panel, Comments: PATIENT WAS FASTINGPERFORMED BY: [facility] Lqaplc4986 [facility] [id number] Information: [id number] Comprehensive (20405) ALT (SGPT) 10 [iU]/L (Normal) Range: 0-40 Alkaline Phosphatase, S 96 [iU]/L (Normal) Range: 25-165 AST (SGOT) 26 [iU]/L (Normal) Range: 0-40 A/G Ratio 1.4 (Normal) Range: 1.1-2.5 Albumin, Serum 4.1 g/dL (Normal) Range: 3.6-4.8 Bilirubin, Total 0.5 mg/dL (Normal) Range: 0.0-1.2 Globulin, Total 3.0 g/dL (Normal) Range: 1.5-4.5 Calcium, Serum 9.4 mg/dL (Normal) Range: 8.6-10.2 Carbon Dioxide, Total 23 mmol/L (Normal) Range: 20-32 Protein, Total, Serum 7.1 g/dL (Normal) Range: 6.0-8.5 BUN/Creatinine Ratio 18 (Normal) Range: 8-27 Chloride, Serum 102 mmol/L (Normal) Range: 97-108 eGFR AfricanAmerican >59 mL/min/1.73 Comments: Note: Persistent reduction for 3 months or more in an eGFR<60 mL/min/1.73 m2 defines CKD. Patients with eGFR values>/=60 mL/min/1.73 m2 may also have CKD if evidence of persistentproteinuria is (Normal) present. Additional information may be found atwww.kdoqi.org. Potassium, Serum 4.7 mmol/L (Normal) Range: 3.5-5.2 Sodium, Serum 139 mmol/L (Normal) Range: 135-145 eGFR >59 mL/min/1.73 (Normal) BUN 16 mg/dL (Normal) Range: 5-26 Creatinine, Serum 0.91 mg/dL (Normal) Range: 0.57-1.00 Glucose, Serum 87 mg/dL (Normal) Range: 65-99 23-Jjz-10888:29 CALCIFIDIOL (21997) VIT D 25 Comments: PATIENT WAS FASTINGPERFORMED BY: [id number] [facility]At[facility] [id number] Vitamin D, 25-Hydroxy 25.2 ng/mL (Abnormal) Range: 32.0-100.0 Comments: Recent studies consider the lower limit of 32.0 ng/mL to be athreshold for optimal health.Alex MCKOY. J Nutr. 2004;135(2):317-22. :29 Lipid Panel (41950) Comments: PATIENT WAS FASTINGPERFORMED BY: Upshot6370 [employer] [place] [id number] LDL Cholesterol Calc 104 mg/dL (Abnormal) Range: 0-99 LDL/HDL Ratio 1.4 {ratio_units} (Normal) Range: 0.0-3.2 HDL Cholesterol 73 mg/dL (Normal) Comments: According to ATP-III Guidelines, HDL-C >59 mg/dL is considered anegative risk factor for CHD. Triglycerides 137 mg/dL (Normal) Range: 0-149 VLDL Cholesterol Donovan 27 mg/dL (Normal) Range: 5-40 Cholesterol, Total 204 mg/dL (Abnormal) Range: 100-199 :41 CBC With Differential/Platelet Comments: PATIENT WAS FASTINGPERFORMED BY: [facility]CoNew[facility] CenterCkaedg2028 [facility] [id number] Baso (Absolute) 0.0 {x10E3/uL} (Normal) Range: 0.0-0.2 Basos 0 % (Normal) Range: 0-3 Eos 2 % (Normal) Range: 0-7 Eos (Absolute) 0.1 {x10E3/uL} (Normal) Range: 0.0-0.4 Hematocrit 43.5 % (Normal) Range: 34.0-44.0 Hemoglobin 14.6 g/dL (Normal) Range: 11.5-15.0 Lymphs 46 % (Normal) Range: 14-46 Lymphs (Absolute) 3.3 {x10E3/uL} (Normal) Range: 0.7-4.5 MCH 30.8 pg (Normal) Range: 27.0-34.0 MCHC 33.5 g/dL (Normal) Range: 32.0-36.0 MCV 92 fL (Normal) Range: 80-98 Monocytes 8 % (Normal) Range: 4-13 Monocytes(Absolute) 0.6 {x10E3/uL} (Normal) Range: 0.1-1.0 Neutrophils 44 % (Normal) Range: 40-74 Neutrophils (Absolute) 3.2 {x10E3/uL} (Normal) Range: 1.8-7.8 Platelets 219 {x10E3/uL} (Normal) Range: 140-415 RBC 4.73 {x10E6/uL} (Normal) Range: 3.80-5.10 RDW 14.4 % (Normal) Range: 11.7-15.0 WBC 7.2 {x10E3/uL} (Normal) Range: 4.0-10.5 :41 Comp. Metabolic Panel (14) Comments: PATIENT WAS FASTINGPERFORMED BY: [facility] CenterIsdbad9562 [facility] [id number] A/G Ratio 1.1 (Normal) Range: 1.1-2.5 Albumin, Serum 4.0 g/dL (Normal) Range: 3.6-4.8 Alkaline Phosphatase, S 87 [iU]/L (Normal) Range: 25-165 ALT (SGPT) 8 [iU]/L (Normal) Range: 0-40 AST (SGOT) 23 [iU]/L (Normal) Range: 0-40 Bilirubin, Total 0.6 mg/dL (Normal) Range: 0.1-1.2 BUN 16 mg/dL (Normal) Range: 5-26 BUN/Creatinine Ratio 18 (Normal) Range: 8-27 Calcium, Serum 9.1 mg/dL (Normal) Range: 8.5-10.6 Carbon Dioxide, Total 25 mmol/L (Normal) Range: 20-32 Chloride, Serum 102 mmol/L (Normal) Range: 97-108 Creatinine, Serum 0.90 mg/dL (Normal) Range: 0.50-1.50 Globulin, Total 3.6 g/dL (Normal) Range: 1.5-4.5 Glom Filt Rate, Est >60 mL/min (Normal) Range: 60-128 Glucose, Serum 85 mg/dL (Normal) Range: 65-99 If -Citizen Of [place] >60 mL/min (Normal) Range: 60-128 Comments: Note: Persistent reduction for 3 months or more in an eGFR<60 mL/min/1.73 m2 defines CKD. Patients with eGFR values>/=60 mL/min/1.73 m2 may also have CKD if evidence of persistentproteinuria is present. Additional information may be found atwww.kdoqi.org. Potassium, Serum 4.4 mmol/L (Normal) Range: 3.5-5.2 Protein, Total, Serum 7.6 g/dL (Normal) Range: 6.0-8.5 Sodium, Serum 139 mmol/L (Normal) Range: 135-145 38-Obb-36357:41 Lipid Panel With LDL/HDL Comments: PATIENT WAS FASTINGPERFORMED BY: [facility] CenterWtqzdt2293 [facility] [id number] Ratio Cholesterol, Total 210 mg/dL (Abnormal) Range: 100-199 Comment SPRCS (Normal) Comments: If initial LDL-cholesterol result is >100 mg/dL, assess forrisk factors. HDL Cholesterol 81 mg/dL (Abnormal) Range: 40-59 Comments: HDL cholesterol values >59 mg/dL are associated with reduced cardiacrisk. LDL Cholesterol Calc 102 mg/dL (Abnormal) Range: 0-99 LDL/HDL Ratio 1.3 {ratio_units} (Normal) Range: 0.0-3.2 Triglycerides 133 mg/dL (Normal) Range: 0-149 VLDL Cholesterol Donovan 27 mg/dL (Normal) Range: 5-40 :41 Microscopic Examination Comments: PATIENT WAS FASTINGPERFORMED BY: Trly UniqNew[facility] CenterLrbnkm6702 [facility] [id number] Bacteria None seen (Normal) Crystal Type Amorphous Sediment (Normal) Crystals Present (Abnormal) Epithelial Cells (non renal) >10 {/hpf} (Abnormal) Range: 0 - 10 Mucus Threads Present (Abnormal) RBC 0-3 {/hpf} (Normal) Range: 0 - 3 WBC 11-30 {/hpf} (Abnormal) Range: 0 - 5 :41 Urinalysis, Routine Comments: PATIENT WAS FASTINGPERFORMED BY: Privepasslin6370 [facility] [id number] Appearance Clear (Normal) Bilirubin Negative (Normal) Glucose Negative (Normal) Ketones Negative (Normal) Microscopic Examination See below: (Normal) Nitrite, Urine Negative (Normal) Occult Blood Negative (Normal) pH 7.5 (Normal) Range: 5.0-7.5 Protein Negative (Normal) Specific Buchanan 1.018 (Normal) Range: 1.005-1.030 Urine-Color Yellow (Normal) Urobilinogen,Semi-Qn 0.2 mg/dL (Normal) Range: 0.0-1.9 WBC Esterase 3+ (Abnormal) :13 KNEE,4 OR MORE VIEWS Radiology Report See Note (Normal) Comments: Exam Number: [id number] LEFT KNEE - VIEWS STATEMENTPain. PRIOR STUDIESNone. No acute fracture or joint dislocation is shown. There is no jointeffusion. No suspicious bone lesions or pathologic calcific ations. There is mild narrowing over the medial joint compartment. IMPRESSIONMild narrowing of the medial joint compartment, otherwise negativeleft knee. Reported By: GRACE CORDERO M.D. 7-Csb-482281:55 Pap Lb, rfx HPV Comments: Source.............Cervical;EndocervicalNo. of containers..01 CYTYC Thin Prep VialPERFORMED BY: [facility] [place] [address] [place] [id number] all pth . . (Normal) DIAGNOSIS: SPRCS (Normal) Comments: NEGATIVE FOR INTRAEPITHELIAL LESION AND MALIGNANCY.Satisfactory for evaluation. Endocervical and/or squamous metaplasticcells (endocervical component) are present.V72.31 ; Routine gynecolog ical examina Dayna Rasmussen, Process Inspector (ASCP) Note: PAPSMR (Normal) Comments: The Pap smear is a screening test designed to aid in the detection ofpremalignant and malignant conditions of the uterine cervix. It is not adiagnostic procedure and should not be used as the sole mean s of detectingcervical cancer. Both false-positive and false-negative reports do occur. .The HPV DNA reflex criteria were not met with this specimen resulttherefore, no HPV testing was performed. . 11-Jul-20069:40 DEXA BONE DENSITY STUDY (HP) Radiology Report See Note (Normal) Comments: Exam Number: [id number] BONE DENSITOMETRY TECHNIQUE Bone densitometry of the lumbar spine and left hip was performed. Thebest criteria for evaluation of osteoporosis is the T-value whichrepresents the comparison of the patient's bone mass to an expectedpeak bone mass. For most patients, the mean T-value of L1 through L4and the T-value of the total l eft hip are most useful. FINDINGSIn this patient, the mean T-value of L1 through L4 is -1.4 which is inthe range of osteopenia. Digital lateral view for evaluation ofvertebral deformity only demonstra walter no obvious compressionfractures. Bone mineral density is measured at 6.2% greater than js1451. The T-value of the left femoral neck is -2.1 which is in the range ofosteopenia. T-value of the tot al left hip is -0.6 which is normal. Bone mineral density of the total left hip is measured at 0.8% greaterthan in 2001. IMPRESSIONThere is osteopenia of the lumbar spine. Bone densitometry of thetota l left hip is in the normal range. Reported By: JANNY SALEH M.D. Plan of Care Name Dates Details Instructions BMI 26.0-26.9,adult : Eprescribed prescriptions (G8553) Indication: BMI 26.0-26.9,adult Fall at home : Eprescribed prescriptions (G8553) Indication: Fall at home Actinic keratosis : Cryotherapy Indication: Actinic keratosis Screening for malignant neoplasm of cervix : Eprescribed prescriptions (G8553) Indication: Screening for malignant neoplasm of cervix Abdominal pain : *Abd Pain Red Flags Indication: Abdominal pain Abdominal pain : Eprescribed prescriptions (G8553) Indication: Abdominal pain Abdominal pain : Eprescribed prescriptions (G8553) Indication: Abdominal pain Abdominal pain : Reviewed Lab Indication: Abdominal pain Hyperactive bowel sounds : Follow up 10 days Indication: Hyperactive bowel sounds Need for prophylactic vaccination and inoculation against influenza : Flu (Influenza) *: flu Indication: Need for prophylactic vaccination and inoculation against influenza Need for prophylactic vaccination and inoculation against influenza : Flu (Influenza) *: flu shot Indication: Need for prophylactic vaccination and inoculation against influenza Screening for malignant neoplasm of cervix : Mammogram *: gynecological health Indication: Screening for malignant neoplasm of cervix Osteoarthrosis, not specified whether generalized/localized, lower leg : Euflexxa injection Indication: Osteoarthrosis, not specified whether generalized/localized, lower leg Osteoarthrosis, not specified whether generalized/localized, lower leg : Euflexxa injection Indication: Osteoarthrosis, not specified whether generalized/localized, lower leg Osteoarthrosis, not specified whether generalized/localized, lower leg : Euflexxa injection Indication: Osteoarthrosis, not specified whether generalized/localized, lower leg Knee pain : Knee Injections Indication: Knee pain Need for prophylactic vaccination and inoculation against influenza : Flu (Influenza) *: flu shot Indication: Need for prophylactic vaccination and inoculation against influenza Screening for malignant neoplasm of cervix : Mammogram *: gynecological health Indication: Screening for malignant neoplasm of cervix Knee pain : Knee Injections Indication: Knee pain Urinary frequency : Follow up in 2 weeks Indication: Urinary frequency Urinary frequency : Water in diet, brief version Indication: Urinary frequency Urinary frequency : Water in diet, brief version Indication: Urinary frequency Osteoporosis : Osteoporosis in Women *: bone density Indication: Osteoporosis Screening for malignant neoplasm of cervix : *Well Female Maintenance (KF) Indication: Screening for malignant neoplasm of cervix Screening for malignant neoplasm of cervix : Pap/Pelvic/Bimanual/Rectal/Breast Exam was done. Indication: Screening for malignant neoplasm of cervix Screening for malignant neoplasm of cervix : Mammogram *: gynecological health Indication: Screening for malignant neoplasm of cervix Other specified viral infection, in conditions classified elsewhere and of unspecified site : *URI Symptoms Indication: Other specified viral infection, in conditions classified elsewhere and of unspecified site Other specified viral infection, in conditions classified elsewhere and of unspecified site : *URI Treatment Indication: Other specified viral infection, in conditions classified elsewhere and of unspecified site Other specified viral infection, in conditions classified elsewhere and of unspecified site : *URI Symptoms Indication: Other specified viral infection, in conditions classified elsewhere and of unspecified site Other specified viral infection, in conditions classified elsewhere and of unspecified site : *URI Treatment Indication: Other specified viral infection, in conditions classified elsewhere and of unspecified site Screening for malignant neoplasm of cervix : Well Female Maintenance (KF) Indication: Screening for malignant neoplasm of cervix Herpes zoster without complication : FOLLOW UP IN 1 WEEK Indication: Herpes zoster without complication Screening for malignant neoplasm of cervix : Self Breast Exam Education Indication: Screening for malignant neoplasm of cervix Screening for malignant neoplasm of cervix : Well Female Maintenance (KF) Indication: Screening for malignant neoplasm of cervix Planned Observations CBC WITH MANUAL DIFF (75520)Indication: Impaired fasting glucose On: 67-Blh-683472:39 Request Metabolic Panel, Comprehensive (12397)Indication: Hyperkalemia On: 08-Hao-509843:32 Request Comments: re check in 4 weeks POTASSIUM URINE (86546)Indication: Hyperkalemia On: 71-Wqr-960804:43 Request Comments: re check in 4 weeks CBC with auto diff (46378)Indication: Abdominal pain On: :03 Request Metabolic Panel, Comprehensive (91287)Indication: Abdominal pain On: :03 Request Lipase (37779)Indication: Abdominal pain On: :28 Request Amylase (30813)Indication: Abdominal pain On: :28 Request CBC (Auto) (83329)Indication: Abdominal pain On: :27 Request Metabolic Panel, Comprehensive (17772)Indication: Abdominal pain On: :27 Request URINE ERICA CULTURE-JANETH COL COUNT (48556)Indication: UTI (lower urinary tract infection) On: :50 Request URINE ERICA CULTURE-JANETH COL COUNT (07935)Indication: UTI (lower urinary tract infection) On: 10-Jun-20148:40 Request URINE ERICA CULTURE-IDENTIFICATN (84118)Indication: Urinary frequency On: 89-Jsz-685493:47 Request Comments: recheck after finish antibiotic URINALYSIS (27755)Indication: Urinary frequency On: :47 Request Thin prep Pap (31652)Indication: Screening for malignant neoplasm of cervix On: 7-Cym-185868:20 Request URINALYSIS (82369)Indication: Screening for malignant neoplasm of cervix On: 6-Mvv-807331:19 Request URINALYSIS (83868)Indication: Screening for malignant neoplasm of cervix On: :19 Request CBC (Auto) (68254)Indication: Screening for malignant neoplasm of cervix On: :18 Request Metabolic Panel, Comprehensive (89279)Indication: Screening for malignant neoplasm of cervix On: :18 Request Lipid Panel (75450)Indication: Screening for malignant neoplasm of cervix On: 4-Kia-567806:18 Request Planned Encounters Medical; [facility] 6 Month Fu - On: 23-May-2018 8:45 Comprehensive Internal Medicine Jason GARRETT, Raine Gross MD Planned Procedures Bone Density StudyBy: Jason GARRETT, On: 08-Nov-2017 Intent Raine Gross MD Comments: schedule after 11-15-17 MAMMOGRAM BREAST BILATERAL SCREENING On: 08-Nov-2017 Intent DIGITAL (95672)By: Raine Gomez MD Comments: schedule after 11-16-17 M Raine Gomez MD INJECTION, PROLIA (J0897)By: Visit, On: 01-Aug-2017 Intent Nurse Comments: pt own med lot [id number] exp 10/25 given sq lt arm Flu Vaccine (Quadrivalent) 13011Wg: On: 23-Nov-2016 Intent Raine Gomez MD, MD, Dana Comments: Lot #[id number]-07/23/17ite-L dltd, IMDose prefilled syringegiven by:Amadou LPNVIS and ABN signed M Ear Irrigation (62120)By: Jason On: 01-Sep-2016 Intent Raine GARRETT MD, Dana M Comments: Ear Irrigation performed on:bilateralAmount/color removed cerumen: large amountOUtcome:clear and tolerated Wax CurettesBy: Raine Gomez MD On: 01-Sep-2016 Intent Raine Gomez MD SCREENING DIGITAL TOMOSYNTHESIS OF On: 01-Sep-2016 Intent BREAST (22726)By: Raine Gomez MD Comments: 10-22 Raine Gomez MD INJECTION, PROLIA (J0897)By: Visit, On: 01-Aug-2016 Intent Nurse Comments: [id number]/prefilled syringeR arm, IMML Long, EDGE POLISHER Flu Vaccine (Quadrivalent) [id number]: On: 20-Oct-2015 Intent Raine Gomez MD, MD, Dana Comments: FLUlot: [id number]:08/04/16site:Lt deltoidroute:IMdose:.5mlDEMICK MA M Wax CurettesBy: Raine Gomez MD On: 19-Aug-2015 Intent Raine Gomez MD Ear Irrigation (69580)By: Jason On: 19-Aug-2015 Intent Raine GARRETT MD, Dana M DEXA SCAN AXIAL SKELETON (11686)By: On: 19-Aug-2015 Intent Raine Gomez MD, MD, Dana Comments: after 9- M MAMMOGRAM, SCREENING, BOTH BREAST On: 19-Aug-2015 Intent (82881)By: Raine Gomez MD Comments: after -16 due Raine Gomez MD INJECTION, PROLIA (J0897)By: Jason On: 12-Aug-2015 Intent Raine GARRETT MD, Dana M Comments: prolialot:[id number]:ite:lt subqroute:subqdose:60mgD.KP Tian MAMMOGRAM, SCREENING, BOTH BREAST On: 28-May-2015 Intent (52557)By: Raine Gomez MD, MD, Dana M DEXA SCAN AXIAL SKELETON (70431)By: On: 28-May-2015 Intent Raine Gomez MD, MD, Dana M INJECTION, PROLIA (J0897)By: Jason On: 01-Feb-2015 Intent Raine GARRETT MD, Dana M Comments: lot: [id number]: ite/route: L arm/SQamt: prefilled syringeVIS signed when applicableTO Anders ADMINISTRATION OF INFLUENZA VIRUS On: 02-Nov-2014 Intent VACCINE (G0008)By: Raine Gomez MD, MD, Dana M Toradol Injection, 30 mg (J1885)By: On: 03-Sep-2014 Intent Raine Gomez MD, MD, Dana Comments: Lot:[id number]:04/05/2016Dose:30mgRoute:imSite:r hipGiven By:JKMMARTIN signed M Phenergan Injection, up to 50 mg On: 03-Sep-2014 Intent (J2550)By: Raine Gomez MD Comments: 25 mg IV Raine Gomez MD INFUSION, NORMAL SALINE SOLUTION , On: 03-Sep-2014 Intent 1000 CC (Special Coverage Comments: IV Therapy [id number], 1 inchSite: L acTolerated: moderately wellno redness or swelling, no s/s infiltrationER, LPNPhenergan push - DB, [id number] Instructions Apply. 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 SUPERVISORKarla INJECTION, PROLIA (J0897)By: Anjum On: 03-Feb-2014 Intent Yesika DE PAZ Comments: lot [id number] 6.17leyessi Mckeon LPN ADMINISTRATION OF INFLUENZA VIRUS On: 07-Nov-2013 Intent VACCINE (G0008)By: Visit, Nurse Comments: Lot #[id number]-L dltd, IMDose prefilled syringegiven by:BALDEV TobarVIS and ABN signed FLU VAC, SPLIT, >3 YEARS, INTRAMUSC On: 07-Nov-2013 Intent (43941)By: Visit, Nurse Bone Density StudyBy: Jason GARRETT, On: 30-Oct-2013 Intent Raine Gross MD BILATERAL MAMMOGRAMS (94296)By: On: 30-Oct-2013 Intent Raine Gomez MD, MD, Dana M Radiology - ChestBy: Jason GARRETT, On: 27-Oct-2013 Intent Raine Gross MD EKG (99655)By: Raine Gomez MD On: 27-Oct-2013 Intent Raine Gomez MD Comments: see scanned document of test done to see results reviewed today with patient DRAIN/INJECT MAJOR JOINT OR BURSA On: 29-May-2013 Intent ()By: Raine Gomez MD, MD, Dana M Eprescribed prescriptions (G8553)By: On: 29-May-2013 Intent Raine Gomez MD, MD, Dana M DRAIN/INJECT MAJOR JOINT OR BURSA On: 22-May-2013 Intent ()By: Raine Gomez MD Comments: Lot #:[id number] date:mount given:2ml Route: intra articular Site given:left knee Given By: Raine Honeycutt MD DRAIN/INJECT MAJOR JOINT OR BURSA On: 13-May-2013 Intent ()By: Raine Gomez MD, MD, Dana M Kenalog Injection, 10 mgm On: 03-Feb-2013 Intent (J3301)By: Raine Gomez MD Comments: kenalog 1 continue current treatment plan llot # [id number] 06-17, bupivacaine lot#[id number] Raine Gomez MD Kenalog Injection, 10 mgm On: 03-Feb-2013 Intent (J3301)By: Raine Gomez MD, MD, Dana M Kenalog Injection, 10 mgm On: 03-Feb-2013 Intent (J3301)By: Raine Gomez MD, MD, Dana M Kenalog Injection, 10 mgm On: 03-Feb-2013 Intent (J3301)By: Raine Gomez MD, MD, Dana M ADMINISTRATION OF INFLUENZA VIRUS On: 28-Oct-2012 Intent VACCINE (G0008)By: Lula Flores FLU VAC, SPLIT, >3 YEARS, INTRAMUSC On: 28-Oct-2012 Intent (75212)By: Lula Flores Pap Smear, Medicare (Q0091)By: On: 28-Oct-2012 Intent Raine Gomez MD, MD, Dana M Pelvic and Breast, Medicare On: 28-Oct-2012 Intent (G0101)By: Raine Gomez MD, MD, Dana M MAMMOGRAM, SCREENING, BOTH BREASTS On: 28-Oct-2012 Intent (60823)By: Riane Gomez MD, MD, Dana M Kenalog Injection, 10 mgm On: 17-Oct-2012 Intent (J3301)By: Raine Gomez MD, MD, Dana M Kenalog Injection, 10 mgm On: 17-Oct-2012 Intent (J3301)By: Raine Gomez MD, MD, Dana M Kenalog Injection, 10 mgm On: 17-Oct-2012 Intent (J3301)By: Raine Gomez MD, MD, Dana M Kenalog Injection, 10 mgm On: 17-Oct-2012 Intent (J3301)By: Raine Gomez MD, MD, Dana M Breast Screening - BilateralBy: On: 09-Sep-2012 Intent Raine Gomez MD, MD, Dana M SPECIMEN HANDLING/TRANSPORT On: 23-Jul-2012 Intent (46423)By: Sonia Phillips LPN DXA, BONE DENSITY, AXIAL SKELETON On: 26-Oct-2011 Intent (74814)By: Raine Gomez MD, MD, Dana M MAMMOGRAM, SCREENING, BOTH BREASTS On: 26-Oct-2011 Intent (27023)By: Raine Gomez MD, MD, Dana M EKG (40484)By: Raine Gomez MD On: 26-Oct-2011 Intent Raine Gomez MD Comments: see scanned document of test done to see results reviewed today with patient FLU VAC, SPLIT, >3 YEARS, INTRAMUSC On: 26-Oct-2011 Intent ([id number])By: DANIAL Mayorga Comments: Lot #:[id number] date:07.18Amount given:prefilled syringeRoute: IMSite given:Given by: VIS signed ADMINISTRATION OF INFLUENZA VIRUS On: 26-Oct-2011 Intent VACCINE (G0008)By: DANIAL Mayorga Breast Diagnostic - BilateralBy: On: 03-Apr-2011 Intent Raine Gomez MD, MD, Dana M Breast Diagnostic - BilateralBy: On: 04-Aug-2010 Intent Raine Gomez MD, MD, Dana M PNEUM VAC ADLT/IMUMNOSPR, SBC/INTRM On: 06-Jun-2010 Intent ([id number])By: Raine Gomez MD Comments: lot # [id number]- 04/09/[id number] 0.5 ML tolerated well Raine Gómez LPN, MD TD Injection , IM ([id number])By: On: 06-Jun-2010 Intent Raine Gomez MD, MD, Dana Comments: lot # [id number]- 12/21/[id number]- 0.5ML tolerated well Katie Dunlap ADMINISTRATION OF PNEUMOCOCCAL On: 06-Jun-2010 Intent VACCINE (G0009)By: Raine Gomez MD, MD, Dana M Inhaler Demonstration ([id number])By: On: 30-May-2010 Intent Rayshawn KUNZ Karla Mahmood Pulse Oximetry ([id number])By: Rayshawn KUNZ, On: 30-May-2010 Intent Karla Mahmood Aerosol Treatment ([id number])By: Rayshawn On: 30-May-2010 Intent Karla KUNZ Eprescribed prescriptions ([id number])By: On: 27-Apr-2010 Intent Karla Tabares CNP Breast Diagnostic - RightBy: Jason On: 22-Nov-2009 Intent Raine GARRETT MD, Dana M Comments: patient has apt. for January Breast Ultrasound - RightBy: Jason On: 26-Oct-2009 Intent Raine GARRETT MD, Dana M Breast Diagnostic - RightBy: Jason On: 26-Oct-2009 Intent Raine GARRETT MD, Dana M Pap Smear, Medicare ([id number])By: On: 22-Oct-2009 Intent Raine Gomez MD, MD, Dana M Pelvic and Breast, Medicare On: 22-Oct-2009 Intent (G0101)By: Raine Gomez MD, MD, Dana M MAMMOGRAM, SCREENING, BOTH BREASTS On: 22-Oct-2009 Intent ([id number])By: Raine Gomez MD, MD, Dana M DXA, BONE DENSITY, AXIAL SKELETON On: 22-Oct-2009 Intent ([id number])By: Raine Gomez MD, MD, Dana M FLU VAC, SPLIT, >3 YEARS, INTRAMUSC On: 05-Nov-2008 Intent ([id number])By: Mast RN, Amanda ADMINISTRATION OF INFLUENZA VIRUS On: 05-Nov-2008 Intent VACCINE (G0008)By: Mast RN, Amanda ADMINISTRATION OF PNEUMOCOCCAL On: 12-Sep-2007 Intent VACCINE (G0009)By: Raine Gomez MD, MD, Dana M PNEUM VAC ADLT/IMUMNOSPR, SBC/INTRM On: 12-Sep-2007 Intent ([id number])By: Raine Gomez MD, MD, Dana M ELECTROCARDIOGRAM, COMPLETE (ECG) On: 12-Sep-2007 Intent ([id number])By: Raine Gomez MD, MD, Dana M Pulse Oximetry ([id number])By: Jason On: 12-Sep-2007 Intent Raine GARRETT MD, Raine Dunlap Pap Smear, Medicare ([id number])By: On: 12-Sep-2007 Intent Raine Gomez MD, MD, Raine Dunlap Pelvic and Breast, Medicare On: 12-Sep-2007 Intent (G0101)By: Raine Gomez MD, MD, Dana M MAMMOGRAM, SCREENING, BOTH BREASTS On: 12-Sep-2007 Intent ([id number])By: Raine Gomez MD, MD, Raine Dunlap Bone Density StudyBy: Jason GARRETT, On: 26-Jun-2006 Intent Raine Gross MD MAMMOGRAM, SCREENING, BOTH BREASTS On: 26-Jun-2006 Intent ([id number])By: Raine Gomez MD, MD, Dana M Pap Smear, Medicare ([id number])By: On: 26-Jun-2006 Intent Raine Gomez MD, MD, Raine Dunlap Pelvic and Breast, Medicare On: 26-Jun-2006 Intent (G0101)By: Raine Gomez MD, MD, Dana M Planned Medications INFUSION, NORMAL SALINE SOLUTION , 1000 CC Ordered: 03-Sep-2014 Pending Raine Gomez MD, MD, Dana M INJECTION, KETOROLAC TROMETHAMINE, PER 15 MG Ordered: 03-Sep-2014 Pending Raine Gomez MD, MD, Dana M INJECTION, PROLIA Ordered: 03-Feb-2014 Pending Slarb EDGE POLISHER, Yesika INJECTION, PROLIA Ordered: 12-Aug-2015 Pending Raine Gomez MD, MD, Dana M INJECTION, PROLIA Ordered: 01-Feb-2015 Pending Raine Gomez MD, MD, Raine Dunlap INJECTION, PROLIA Ordered: 30-Jul-2014 Pending Alyssa, Aura INJECTION, PROLIA Ordered: 01-Aug-2016 Pending Visit, Nurse INJECTION, PROLIA Ordered: 01-Aug-2017 Pending Visit, Nurse INJECTION, TRIAMCINOLONE ACETONIDE, NOT OTHERWISE SPECIFIED, 10 MG Ordered: 03-Feb-2013 Raine Ellison MD, MD, Raine Dunlap INJECTION, TRIAMCINOLONE ACETONIDE, NOT OTHERWISE SPECIFIED, 10 MG Ordered: 03-Feb-2013 Raine Ellison MD, MD, Raine M INJECTION, TRIAMCINOLONE ACETONIDE, NOT OTHERWISE SPECIFIED, 10 MG Ordered: 03-Feb-2013 Raine Ellison MD, MD, Raine M INJECTION, TRIAMCINOLONE ACETONIDE, NOT OTHERWISE SPECIFIED, 10 MG Ordered: 17-Oct-2012 Raine Ellison MD, MD, Raine Dunlap INJECTION, TRIAMCINOLONE ACETONIDE, NOT OTHERWISE SPECIFIED, 10 MG Ordered: 17-Oct-2012 Raine Ellison MD, MD, Raine Dunlap INJECTION, TRIAMCINOLONE ACETONIDE, NOT OTHERWISE SPECIFIED, 10 MG Ordered: 17-Oct-2012 Raine Ellison MD, MD, Raine Dunlap INJECTION, TRIAMCINOLONE ACETONIDE, NOT OTHERWISE SPECIFIED, 10 MG Ordered: 03-Feb-2013 Raine Ellison MD, MD, Raine Dunlap INJECTION, TRIAMCINOLONE ACETONIDE, NOT OTHERWISE SPECIFIED, 10 MG Ordered: 17-Oct-2012 Raine Ellison MD, MD, Raine Dunlap Phenergan 50 MG/ML Injection Solution Ordered: 03-Sep-2014 Raine Ellison MD, MD, Raine Dunlap Instructions Name Dates Details Encounter for routine adult health examination with abnormal findings : How to access health information online Indication: Encounter for routine adult health examination with abnormal findings Encounter for routine adult health examination with abnormal findings : How to access health information online - Detail Indication: Encounter for routine adult health examination with abnormal findings Encounter for routine adult health examination with abnormal findings : Patient Instructions Indication: Encounter for routine adult health examination with abnormal findings BMI 26.0-26.9,adult : How to access health information online Indication: BMI 26.0-26.9,adult BMI 26.0-26.9,adult : How to access health information online - Detail Indication: BMI 26.0-26.9,adult BMI 26.0-26.9,adult : Patient Instructions Indication: BMI 26.0-26.9,adult Fall at home : How to access health information online Indication: Fall at home Fall at home : How to access health information online - Detail Indication: Fall at home Fall at home : Patient Instructions Indication: Fall at home Impaired fasting glucose : How to access health information online Indication: Impaired fasting glucose Impaired fasting glucose : How to access health information online - Detail Indication: Impaired fasting glucose Impaired fasting glucose : Patient Instructions Indication: Impaired fasting glucose Prediabetes : Patient Instructions Indication: Prediabetes Prediabetes : How to access health information online Indication: Prediabetes Prediabetes : How to access health information online - Detail Indication: Prediabetes Knee pain : How to access health information online Indication: Knee pain Knee pain : How to access health information online - Detail Indication: Knee pain Knee pain : Patient Instructions Indication: Knee pain Encounter for routine adult health examination with abnormal findings : How to access health information online Indication: Encounter for routine adult health examination with abnormal findings Encounter for routine adult health examination with abnormal findings : How to access health information online - Detail Indication: Encounter for routine adult health examination with abnormal findings Encounter for routine adult health examination with abnormal findings : Patient Instructions Indication: Encounter for routine adult health examination with abnormal findings Osteoporosis : How to access health information online Indication: Osteoporosis Osteoporosis : How to access health information online - Detail Indication: Osteoporosis Osteoporosis : Patient Instructions Indication: Osteoporosis Screening for malignant neoplasm of cervix : How to access health information online Indication: Screening for malignant neoplasm of cervix Screening for malignant neoplasm of cervix : How to access health information online Indication: Screening for malignant neoplasm of cervix Screening for malignant neoplasm of cervix : How to access health information online - Detail Indication: Screening for malignant neoplasm of cervix Screening for malignant neoplasm of cervix : Patient Instructions Indication: Screening for malignant neoplasm of cervix Bowel obstruction : Patient Instructions Indication: Bowel obstruction Bowel obstruction : Patient Instructions Indication: Bowel obstruction Abdominal pain : How to access health information online Indication: Abdominal pain Abdominal pain : How to access health information online - Detail Indication: Abdominal pain Abdominal pain : Patient Instructions Indication: Abdominal pain Abdominal pain : How to access health information online Indication: Abdominal pain Abdominal pain : How to access health information online - Detail Indication: Abdominal pain Abdominal pain : Patient Instructions Indication: Abdominal pain Screening for malignant neoplasm of cervix : Patient Instructions Indication: Screening for malignant neoplasm of cervix Osteoarthrosis, not specified whether generalized/localized, lower leg : Patient Instructions Indication: Osteoarthrosis, not specified whether generalized/localized, lower leg Screening for malignant neoplasm of cervix : Patient Instructions Indication: Screening for malignant neoplasm of cervix Osteoporosis : Patient Instructions Indication: Osteoporosis Screening for malignant neoplasm of cervix : Patient Instructions Indication: Screening for malignant neoplasm of cervix Encounters Office Visit On: 08-Nov-2017 7:52 Encounter Reason: Physical female exam - Last seen between 3-6 months ago. General health: feels well with minor complaints and has decreased energy level. The patient's appetite is normal. Nutrition: normal/adequate. Ex End: 08-Nov-2017 11:31 ercises 3 days per week. Sleeps on average 7 hours per night. Normal bowel and bladder habits. Safety measures include appropriate use of safety belts and home smoke detectors. Current emotional problem s include depression. screening, colonoscopy (2015), screening, mammography (2016), screening, Pap smear (2013) and screening, visual acuity (Summer 2017).Encounter Diagnosis: BMI 27.0-27.9,adult, Current nonsmoker (Renamed from Current non-smoker), Encounter for routine adult health examination with abnormal findings, Encounter for screening mammogram for breast cancer (Renamed from Visit for screening mammogram), Osteoporosis, Allergic rhinitis, Bilateral hearing loss, unspecified hearing loss type, Hearing loss of left ear due to cerumen impaction, Potassium disorder, Colon polyps, Osteoarthrosis, not specified whether generalized/localized, lower leg, Stress reaction (Renamed from Acute reaction to stress), Impaired fasting glucose, Diverticulosis, It band syndrome, left, GERD (gastroesophageal reflux disease), BMI 26.0-26.9,adult [facility] Order On: 18-Oct-2017 15:28 Encounter Diagnosis: Impaired fasting glucose End: 18-Oct-2017 15:29 [facility] Office Visit On: 01-Aug-2017 10:32 Encounter Reason: Injections - The medication the patient is here to receive is other (prolia).Encounter Diagnosis: Osteoporosis End: 02-Aug-2017 7:11 [facility] Office Visit On: 12-Jul-2017 9:17 Encounter Reason: Nurse procedure visit - The symptoms have been associated with other.Encounter Diagnosis: Diverticulosis End: 17-Jul-2017 17:15 [facility] Office Visit On: 05-Jul-2017 9:22 Encounter Reason: Follow up for chronic medical issues - The patient feels well with minor complaints and has decreased energy level. Patient has been compliant with instructions. Current medication use: no side effects End: 05-Jul-2017 10:02 and compliant with dosing regimen. Patient sleeps 7 hours per night. Impact of disease: emotional impact-mild. Nutrition: balanced diet and supplemental vitamins. The medical issues the patient is follo wing up for include blood sugar issues, gastric reflux, osteoarthritis, osteoporosis/osteopenia and other (diverticulosis).Encounter Diagnosis: BMI 26.0-26.9,adult, Current nonsmoker (Renamed from Current non-smoker), Impaired fasting glucose, Diverticulosis, Potassium disorder, Osteoporosis, Overweight (BMI 25.0-29.9), Colon polyps, Osteoarthrosis, not specified whether generalized/localized, lower leg, Allergic rhinitis, Bilateral hearing loss, unspecified hearing loss type, It band syndrome, left, GERD (gastroesophageal reflux disease), Stress reaction (Renamed from Acute reaction to stress), Hearing loss of left ear due to cerumen impaction, BMI 29.0-29.9,adult, Cerumen impaction, Contusion of other part of head, initial encounter, Fall at home, BMI 27.0-27.9,adult [facility] Phone Encounter On: 13-Apr-2017 11:13 Encounter Diagnosis: GERD (gastroesophageal reflux disease) End: 13-Apr-2017 11:15 [facility] Office Visit On: 26-Jan-2017 6:57 Encounter Reason: Follow up acute care visit - The patient improving (improving since the fall but still have two areas that are concerning.). Patient has been compliant with instructions.Encounter Diagnosis: BMI 27.0-27.9,adult, End: 26-Jan-2017 8:06 Current nonsmoker (Renamed from Current non-smoker), Fall at home, Contusion of other part of head, initial encounter, It band syndrome, left [facility] Office Visit On: 02-Jan-2017 10:39 Encounter Reason: Follow up for chronic medical issues - The patient feels well with no complaints, has good energy level and is sleeping well. Patient has been compliant with instructions. Current medication use: no edyta End: 02-Jan-2017 11:37 e effects, compliant with dosing regimen and considered effective by patient. Patient sleeps 7 hours per night. Nutrition: balanced diet and supplemental vitamins. The medical issues the patient is foll owing up for include blood sugar issues, cardiac issues, gastric reflux, osteoarthritis, osteoporosis/osteopenia and other (diverticulosis ).Encounter Diagnosis: Impaired fasting glucose, Current nonsmoker (Renamed from Current non-smoker), BMI 29.0-29.9,adult, Colon polyps, Osteoarthrosis, not specified whether generalized/localized, lower leg, Overweight (BMI 25.0-29.9), Prediabetes, Allergic rhinitis, Osteoporosis, Bilateral hearing loss, unspecified hearing loss type, Potassium disorder, Diverticulosis, Actinic keratosis, Stress reaction (Renamed from Acute reaction to stress), Screening for malignant neoplasm of cervix, Hearing loss of left ear due to cerumen impaction, Cerumen impaction, BMI 27.0-27.9,adult, It band syndrome, left [facility] Office Visit On: 23-Nov-2016 10:35 Encounter Reason: InjectionsEncounter Diagnosis: Need for prophylactic vaccination and inoculation against influenza End: 23-Nov-2016 10:52 [facility] Visit On: 01-Sep-2016 10:16 Encounter Diagnosis: BMI 29.0-29.9,adult, Overweight (BMI 25.0-29.9), Osteoarthrosis, not specified whether generalized/localized, lower leg, Heart burn, Colon polyps, Osteoporosis, Current nonsmoker (Renamed from Current non-smoker), Diverticulosis End: 01-Sep-2016 12:15 , Allergic rhinitis, Prediabetes, Encounter for routine adult health examination with abnormal findings, Encounter for screening mammogram for breast cancer (Renamed from Visit for screening mammogram), Stress reaction (Renamed from Acute reaction to stress), Potassium disorder, Bilateral hearing loss, unspecified hearing loss type, Cerumen impaction, Actinic keratosis [facility] Order On: 04-Aug-2016 12:37 Encounter Diagnosis: Impaired fasting glucose End: 04-Aug-2016 12:40 [facility] Office Visit On: 01-Aug-2016 13:17 Encounter Reason: Injections - The medication the patient is here to receive is other (prolia).Encounter Diagnosis: Osteoporosis End: 03-Aug-2016 5:54 [facility] Office Visit On: 14-Mar-2016 15:21 Encounter Diagnosis: Osteoarthrosis, not specified whether generalized/localized, lower leg End: 14-Mar-2016 15:29 [facility] Office Visit On: 02-Feb-2016 7:27 Encounter Reason: Follow up for chronic medical issues - The patient feels well with minor complaints, has good energy level and is sleeping well. Patient has been compliant with instructions. Current medication use: no End: 02-Feb-2016 7:59 side effects, compliant with dosing regimen and considered effective by patient. Patient sleeps 7 hours per night. Impact of disease: emotional impact-mild. Nutrition: balanced diet and supplemental vit amins. The medical issues the patient is following up for include blood sugar issues, cardiac issues, gastric reflux, osteoarthritis, osteoporosis/osteopenia and other (diverticulosis ).Encounter Diagnosis: Prediabetes, Current nonsmoker (Renamed from Current non-smoker), BMI 27.0-27.9,adult, Impaired fasting glucose, Heart burn, Allergic rhinitis, Hyperkalemia, Hearing loss of left ear due to cerumen impaction, Colon polyps, Osteoarthrosis, not specified whether generalized/localized, lower leg, Knee internal derangement, left, Osteoporosis, Diverticulosis, Screening for malignant neoplasm of cervix, Polyuria (788.42), Overweight (BMI 25.0-29.9) [facility] Office Visit On: 05-Nov-2015 9:57 Encounter Diagnosis: Knee pain (719.46), Current nonsmoker (Renamed from Current non-smoker), Knee internal derangement, left End: 22-Nov-2015 8:11 [facility] Order On: 21-Oct-2015 10:30 Encounter Diagnosis: Hyperkalemia End: 21-Oct-2015 10:32 [facility] Office Visit On: 20-Oct-2015 11:08 Encounter Reason: Nurse procedure visit - The symptoms have been associated with other (flu shot).Encounter Diagnosis: Need for prophylactic vaccination and inoculation against influenza End: 20-Oct-2015 11:26 [facility] Order On: 01-Oct-2015 16:39 Encounter Diagnosis: Hyperkalemia End: 01-Oct-2015 16:41 [facility] Refill Request On: 01-Oct-2015 16:33 Encounter Diagnosis: Hyperkalemia End: 01-Oct-2015 16:38 [facility] Order On: 16-Sep-2015 11:48 Encounter Diagnosis: Hyperkalemia End: 16-Sep-2015 11:49 [facility] Phone Encounter On: 07-Sep-2015 14:35 Encounter Diagnosis: Prediabetes End: 07-Sep-2015 14:36 [facility] Order On: 20-Aug-2015 15:41 Encounter Diagnosis: Hyperkalemia End: 20-Aug-2015 15:44 [facility] Office Visit On: 19-Aug-2015 12:19 Encounter Diagnosis: Annual Medicare Physical (V70.0), Current nonsmoker (Renamed from Current non-smoker), BMI 27.0-27.9,adult, Heart burn, Abnormal mammogram, Hyperactive bowel sounds, Allergic rhinitis, Menopause syndrome, End: 19-Aug-2015 14:15 Osteoarthrosis, not specified whether generalized/localized, lower leg, 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, Diverticulosis, Osteoporosis, Overweight (BMI 25.0- 29.9), Colon polyps, Right upper quadrant pain, Screening for malignant neoplasm of cervix, Polyuria (788.42), Encounter for screening mammogram for breast cancer (Renamed from Visit for screening mammogram), Hyperkalemia, Prediabetes, Hearing loss of left ear due to cerumen impaction [facility] Office Visit On: 12-Aug-2015 11:48 Encounter Reason: Nurse procedure visit - Reason for visit: other (prolia inj).Encounter Diagnosis: Osteoporosis End: 12-Aug-2015 14:32 [facility] Nurse Visit (Non-[place]) On: 05-Aug-2015 9:54 [facility] End: 05-Aug-2015 9:55 Prescription Refill On: 31-May-2015 18:03 Encounter Diagnosis: Diverticulosis End: 31-May-2015 18:05 [facility] Office Visit On: 28-May-2015 8:14 Encounter Diagnosis: Colon polyps, Encounter for screening mammogram for breast cancer (Renamed from Visit for screening mammogram), Annual Medicare Physical (V70.0) End: 28-May-2015 8:32 [facility] Office Visit On: 28-May-2015 7:22 Encounter Reason: Follow up for chronic medical issues - The patient feels well with minor complaints, has good energy level and is sleeping well. Patient has been compliant with instructions. Current medication use: no End: 28-May-2015 8:04 side effects, compliant with dosing regimen and considered effective by patient. Patient sleeps 7 hours per night. Impact of disease: emotional impact-mild. Nutrition: balanced diet and supplemental vit amins. The medical issues the patient is following up for include osteoarthritis, osteoporosis/osteopenia and other (menopausal, hx. beta strep carrier, allergic rhinitis, hx. 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, Bowel obstruction, Allergic rhinitis, Heart burn, Abnormal mammogram, Screening for malignant neoplasm of cervix, Hyperactive bowel sounds, Polyuria (788.42), Right upper quadrant pain, Overweight (BMI 25.0-29.9), Encounter for screening mammogram for breast cancer (Renamed from Visit for screening mammogram) [facility] Office Visit On: 01-Feb-2015 11:09 Encounter Reason: Injections - The medication the patient is here to receive is other (prolia).Encounter Diagnosis: Osteoporosis (733.00) End: 04-Feb-2015 7:26 [facility] Office Visit On: 02-Nov-2014 8:58 Encounter Reason: Well Women Exam - The patient feels well with no complaints, has good energy level and is sleeping well. Pap smear: date of last pap: (10/2013). Contraceptive history: The patient is not using any method End: 03-Nov-2014 7:37 of contraception at this time. Patient exercises 3 - 4 times per week. The patient's libido is absent ( ). The patient reports that she performs monthly self breast exam. Calcium intake inc ludes 1200 mg with Vit D daily supplement. The patient denies the use of oral contraceptives or hormone replacement therapy. breast cancer in first degree relative. Menstruation: Last menstrual period date: (50's)., [ADDITIONAL REASON] Annual Medicare Exam - Yes the patient did have (mms wisper 04/07) a mini mental status exam done today. The activities of daily living the patient needs help with are none. The patient has put area rugs through house, but the patient has not had fecal incontinence, had urinary incontinence, missed or ran out of medications to soon, driven in past 6 months, fallen in the past 6 months, gotten lost, has a medalert necklace or bracelet or put handrails in bathroom. The patient has completed the following preventative measures: PAP smear (year ago), mammography (2015) and colon oscopy (4 years ago). The patient does have durable power of senior attorney and living will. The patient has noticed nothing from the geriatic depression scale. Other providers contributing to the patient's c are are other: (eye doctor dr membreno-up to date ??). Encounter Diagnosis: Well Woman Exam , Medicare (V76.2), Annual Medicare Physical (V70.0), Osteopenia (733.90), Osteoporosis (733.00), Need for prophylactic vaccination and inoculation against influenza (V04.81), Screening for hyperlipidemia (V77.91) [facility] Office Visit On: 10-Sep-2014 8:19 Encounter Reason: Follow up hospital - Reason for ER visit: note: (bowel obstruction ). The patient feels well with minor complaints and has decreased energy level. Patient has been compliant with instructions. Current m End: 10-Sep-2014 9:16 edication use: compliant with dosing regimen. Patient sleeps 7 hours per night. Impact of disease: emotional impact-mild. Nutrition: balanced diet and supplemental vitamins.Encounter Diagnosis: Bowel obstruction, Well Woman Exam , Medicare (V76.2) [facility] Office Visit On: 03-Sep-2014 7:32 Encounter Reason: Abdominal painEncounter Diagnosis: Abdominal pain, Right upper quadrant pain, Bilious vomiting with nausea End: 04-Sep-2014 6:25 [facility] Office Visit On: 30-Jul-2014 13:48 Encounter Diagnosis: Osteopenia (733.90) End: 31-Jul-2014 6:45 [facility] Phone Encounter On: 24-Jun-2014 13:02 Encounter Diagnosis: Abdominal pain End: 24-Jun-2014 13:50 [facility] Office Visit On: 12-Jun-2014 6:56 Encounter Reason: Follow up acute care visit - The patient feeling better since last seen and improving. Patient has been compliant with instructions. Current medication use: no side effects, non-compliant with dosing re End: 12-Jun-2014 7:30 gimen and considered effective by patient.Encounter Diagnosis: Abdominal pain, Well Woman Exam , Medicare (V76.2) [facility] Lab Order On: 10-Jun-2014 8:49 Encounter Diagnosis: UTI (lower urinary tract infection) (599.0) End: 10-Jun-2014 8:50 [facility] Office Visit On: 10-Jun-2014 8:15 Encounter Reason: Follow up acute care visit - The patient feeling better since last seen (still has some lower left quadrant pain). Patient has been compliant with instructions. Current medication use: no side effects. End: 10-Jun-2014 8:43 Patient sleeps 7 hours per night. Impact of disease: emotional impact-mild. Nutrition: balanced diet.Encounter Diagnosis: Abdominal pain, UTI (lower urinary tract infection) (599.0) [facility] Office Visit On: 08-Jun-2014 11:35 Encounter Reason: Abdominal pain - The onset of the pain has been gradual and has been occurring in a persistent pattern for 3 days. The course has been constant. The pain is described as a mild crampy (tender). The pain End: 08-Jun-2014 12:00 is described as being located in the epigastrium and periumbilical area. The pain does not radiate. The symptoms are aggravated by meals (2 to 4 hours after eating). The symptoms are relieved by passin g flatus. The symptoms have been associated with bloating.Encounter Diagnosis: Right upper quadrant pain, Hyperactive bowel sounds [facility] Lab Order On: 20-Apr-2014 16:07 Encounter Diagnosis: Osteoporosis (733.00) End: 20-Apr-2014 16:09 [facility] Office Visit On: 03-Feb-2014 10:30 Encounter Reason: Injections - The medication the patient is here to receive is other (Prolia).Encounter Diagnosis: Osteoporosis (733.00) End: 03-Feb-2014 18:28 [facility] Refill Request On: 25-Dec-2013 12:59 Encounter Diagnosis: Osteoporosis (733.00) End: 25-Dec-2013 13:00 [facility] Office Visit On: 07-Nov-2013 11:38 Encounter Reason: InjectionsEncounter Diagnosis: Need for prophylactic vaccination and inoculation against influenza (V04.81) End: 09-Nov-2013 21:54 [facility] Office Visit On: 31-Oct-2013 12:37 Encounter Diagnosis: Well Woman Exam , Medicare (V76.2) End: 31-Oct-2013 12:38 [facility] Office Visit On: 30-Oct-2013 10:33 Encounter Reason: Annual Medicare Exam - Yes the patient did have a mini mental status exam done today. The activities of daily living the patient needs help with are none. The patient has driven in past 6 months and put End: 31-Oct-2013 6:09 area rugs through house, but the patient has not had fecal incontinence, had urinary incontinence, missed or ran out of medications to soon, fallen in the past 6 months, gotten lost, has a medalert nec klace or bracelet or put handrails in bathroom. The patient has completed the following preventative measures: colonoscopy ([facility]- due back in 8years -- had in 2011). The patient does have durable power of senior attorney and living will. The patient has noticed nothing from the geriatic depression scale. Other providers contributing to the patient's care are other: (Dari Gutiérrez).Encounter Diagnosis: Annual Medicare Physical (V70.0) [facility] Office Visit On: 30-Oct-2013 9:11 Encounter Reason: Well Women Exam - The patient feels well with minor complaints, has good energy level and is sleeping well. Pap smear: date of last pap: (10-29-12). Contraceptive history: The patient is not using any me End: 30-Oct-2013 10:31 thod of contraception at this time. Patient does not exercise. The patient's libido is absent. The patient reports that she performs monthly self breast exam. Calcium intake includes 1200 mg with Vit D daily supplement.Encounter Diagnosis: Well Woman Exam , Medicare (V76.2), SCREENING FOR BREAST CANCER (V76.10), Osteoporosis (733.00) [facility] Office Visit On: 27-Oct-2013 10:31 Encounter Reason: Preoperative evaluation - The patient feels well with no complaints, has good energy level and is sleeping well. Surgical procedures include: other (left total knee replacement ). Date of procedure: (10 End: 27-Oct-2013 11: Dr. Sonny Young, [place] [phone]) . There have been no problems with general anesthesia or blood/blood products. Note for Preoperative evaluation: had surgery in past not issues. no sig ns and symptoms of infection. no hx or fmx of DVT.Encounter Diagnosis: Pre-operative clearance [facility] Phone Encounter On: 29-Aug-2013 9:03 Encounter Diagnosis: Pre-operative clearance End: 29-Aug-2013 9:23 [facility] Office Visit On: 29-May-2013 9:56 Encounter Reason: Injections - The medication the patient is here to receive is other (Euflexxa).Encounter Diagnosis: osteoarthrosis, lower leg (715.36) End: 30-May-2013 5:51 [facility] Office Visit On: 22-May-2013 8:41 Encounter Reason: Injections - The medication the patient is here to receive is other (Euflexxa ).Encounter Diagnosis: osteoarthrosis, lower leg (715.36) End: 22-May-2013 21:20 [facility] Office Visit On: 13-May-2013 10:31 Encounter Reason: Knee Pain - The injury involved the left knee.Encounter Diagnosis: osteoarthrosis, lower leg (715.36) End: 13-May-2013 11:08 [facility] Office Visit On: 09-May-2013 8:44 Encounter Reason: Nurse procedure visit - Reason for visit: other (urinalysis).Encounter Diagnosis: Dysuria (788.1) End: 09-May-2013 9:38 [facility] Office Visit On: 03-Feb-2013 9:00 Encounter Reason: Knee InjuryEncounter Diagnosis: Knee pain (719.46), UTI (lower urinary tract infection) (599.0) End: 03-Feb-2013 9:34 [facility] Office Visit On: 08-Nov-2012 7:21 Encounter Reason: Nurse procedure visit - Reason for visit: other (UA).Encounter Diagnosis: Polyuria (788.42) End: 11-Nov-2012 14:00 [facility] Office Visit On: 28-Oct-2012 9:04 Encounter Reason: Well Women Exam - The patient feels well with minor complaints, has good energy level and is sleeping well. Pap smear: history of abnormal pap (many years ago ) and date of last pap: (). Contracep End: 30-Oct-2012 7:00 tive history: The patient is not using any method of contraception at this time. Patient does not exercise. The patient's libido is absent. The patient reports that she performs monthly self breast exam . Calcium intake includes 1200 mg with Vit D daily supplement. Previous evaluations: cryotherapy. The patient has been using hormone replacement therapy., [ADDITIONAL REASON] Annual Medicare Exam - Yes the patient did have ( mmswisper test ??/3) a mini mental status exam done today. The activities of daily living the patient needs help with are none . The patient has driven in past 6 months and put area rugs through house. The patient has completed the following preventative measures: PAP smear. The patient has noticed nothing from the geriatic depression scale (MMS ). Encounter Diagnosis: Well Woman Exam , Medicare (V76.2), Osteopenia (733.90), Need for prophylactic vaccination and inoculation against influenza (V04.81) [facility] Office Visit On: 17-Oct-2012 8:00 Encounter Diagnosis: Knee pain (719.46) End: 17-Oct-2012 8:32 [facility] Annotation/Addendum On: 16-Oct-2012 11:19 Encounter Diagnosis: UTI (lower urinary tract infection) (599.0) End: 16-Oct-2012 11:20 [facility] Office Visit On: 14-Oct-2012 8:05 Encounter Reason: Nurse procedure visit - Reason for visit: other (urine recheck).Encounter Diagnosis: Urinary Frequency (788.41) End: 15-Oct-2012 8:38 [facility] Office Visit On: 23-Sep-2012 8:08 Encounter Reason: UTI nurse visitEncounter Diagnosis: Urinary Frequency (788.41) End: 23-Sep-2012 8:24 [facility] Lab Order On: 09-Sep-2012 14:56 Encounter Diagnosis: SCREENING FOR BREAST CANCER (V76.10) End: 09-Sep-2012 14:57 [facility] Lab Order On: 02-Sep-2012 12:47 Encounter Diagnosis: Urinary Frequency (788.41) End: 02-Sep-2012 12:48 [facility] Annotation/Addendum On: 02-Sep-2012 12:31 Encounter Diagnosis: 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) End: 02-Sep-2012 12:35 [facility] Office Visit On: 29-Aug-2012 9:39 Encounter Reason: UTI nurse visitEncounter Diagnosis: Urinary Frequency (788.41) End: 30-Aug-2012 7:02 [facility] Annotation/Addendum On: 14-Aug-2012 16:38 Encounter Diagnosis: UTI (lower urinary tract infection) (599.0) End: 14-Aug-2012 16:43 [facility] Office Visit On: 12-Aug-2012 13:45 Encounter Reason: Urinary problemsEncounter Diagnosis: Urinary Frequency (788.41) End: 12-Aug-2012 17:36 [facility] Office Visit On: 23-Jul-2012 15:33 Encounter Reason: Urinary problems - The onset of the urinary problems has been sudden and they have been occurring in a persistent pattern for 1 week. The course has been constant. The urinary problems are described as End: 23-Jul-2012 15:43 moderate. The urinary problem is characterized as frequency and urgency.Encounter Diagnosis: Urinary Frequency (788.41) [facility] Office Visit On: 27-May-2012 9:01 Encounter Reason: Cough - The onset of the cough has been 3 weeks ago. Note for Cough : she started with UTI and that got better with 2 scripts of cipro. went to 05-16-12 for URI. evaluated then. then was given cou End: 27-May-2012 9:57 gh syrup and zpak. she does think better. still cough little with some sputum. started in [place] with the allergies. not on antihsitamineEncounter Diagnosis: Knee pain (719.46), Dysuria (788.1), Sinusitis,chronic (473.9), Allergic Rhinitis(477.9), Well Woman Exam , Medicare (V76.2), Osteoporosis (733.00), Heartburn (787.1) [facility] Office Visit On: 17-Nov-2011 10:36 Encounter Reason: Follow up, Diagnostic Procedure Results - Diagnostic tests include other (bone density ). Date: (11-01-11). Follow up visit with no current symptoms.Encounter Diagnosis: Osteoporosis (733.00) End: 17-Nov-2011 11:15 [facility] Annotation/Addendum On: 27-Oct-2011 9:47 Encounter Diagnosis: Screening for hyperlipidemia (V77.91), Menopause (627.2) End: 27-Oct-2011 9:51 [facility] Office Visit On: 26-Oct-2011 7:35 Encounter Reason: Well Women Exam - The patient feels well with no complaints, has good energy level and is sleeping well. Pap smear: date of last pap: (). Contraceptive history: The patient is not using any method End: 26-Oct-2011 10:08 of contraception at this time. Patient exercises a weekly. The patient's libido is absent. The patient reports that she performs monthly self breast exam. Calcium intake includes 1500 mg with Vit D daily supplement.Encounter Diagnosis: Well Woman Exam , Medicare (V76.2), Need for prophylactic vaccination and inoculation against influenza (V04.81), Abnormal EKG (794.31), Osteopenia (733.90) [facility] Phone Encounter On: 13-Apr-2011 9:30 Encounter Diagnosis: Unspecified Diagnosis End: 13-Apr-2011 9:31 [facility] Phone Encounter On: 03-Apr-2011 8:19 Encounter Diagnosis: Abnormal mammogram (793.80) End: 03-Apr-2011 8:25 [facility] Office Visit On: 06-Jun-2010 12:02 Encounter Reason: Annual Medicare Exam - The patient had reviewed and updated the family history, medication/s, past medical history and social history. No the patient did not have a mini mental status exam done today. End: 06-Jun-2010 17:46 The activities of daily living the patient needs help with are none. The patient has driven in past 6 months, but the patient has not had fecal incontinence, had urinary incontinence, missed or ran out of medications to soon, fallen in the past 6 months, gotten lost, has a medalert necklace or bracelet, put area rugs through house or put handrails in bathroom. The patient has completed the following p reventative measures: mammography (10/15) and colonoscopy (10/15). The patient does have durable power of senior attorney and living will. The patient has noticed feeling something bad will happen ( was dx with lung ca faced with own mortality ). Encounter Diagnosis: Abnormal mammogram (793.80), Well Woman Exam , Medicare (V76.2) [facility] Office Visit On: 30-May-2010 8:50 Encounter Reason: Cough - The onset of the cough has been sudden and has been occurring in a persistent pattern for 3 days. The course has been constant. The cough is characterized as productive of mucoid sputum. The brent End: 30-May-2010 9:31 unt of sputum produced is scanty. The cough occurs all the time. The symptoms are aggravated by supine posture and particular position, but not by meals. The symptoms have been associated with hoarsenes s, runny nose, sore throat and wheezing, while the symptoms have not been associated with fever.Encounter Diagnosis: Cough (786.2), Viral infection, unspecified (079.99) [facility] Office Visit On: 27-Apr-2010 14:10 Encounter Reason: Sore throat - The onset of the sore throat has been sudden and has been occurring in a persistent pattern for 1 day. The course has been unchanged. The symptoms have been associated with cough (unproduc End: 27-Apr-2010 14:32 tive ), runny nose (clear) and swelling of neck glands, while the symptoms have not been associated with chills, difficulty in swallowing, ear pain, fever or sinus pain.Encounter Diagnosis: Viral infection, unspecified (079.99), Cough (786.2) [facility] Nurse Visit (Non-[place]) On: 22-Nov-2009 17:54 Encounter Diagnosis: Abnormal mammogram (793.80) End: 22-Nov-2009 17:57 [facility] Annotation/Addendum On: 02-Nov-2009 8:53 [facility] End: 02-Nov-2009 8:55 Phone Encounter On: 26-Oct-2009 9:30 Encounter Diagnosis: Abnormal mammogram (793.80) End: 26-Oct-2009 9:32 [facility] Office Visit On: 22-Oct-2009 11:58 Encounter Reason: Well Women Exam - The patient feels well with no complaints ,has good energy level and is sleeping well. Pap smear: date of last pap: (09/2007). Contraceptive history: The patient is not using any method End: 22-Oct-2009 13:12 of contraception at this time. Patient exercises a weekly. The patient's libido is normal. The patient reports that she performs monthly self breast exam. The patient has been using oral contraceptives. Encounter Diagnosis: Well Woman Exam , Medicare (V76.2), Osteopenia (733.90), Screening for hyperlipidemia (V77.91) [facility] Nurse Visit On: 05-Nov-2008 14:57 Encounter Reason: Injections - The medication the patient is here to receive is other (Influenza vaccine). Encounter Diagnosis: Need for prophylactic vaccination and inoculation against influenza (V04.81) End: 05-Nov-2008 14:58 [facility] Annotation/Addendum On: 12-Sep-2007 13:47 [facility] End: 12-Sep-2007 13:47 Office Visit On: 12-Sep-2007 13:05 Encounter Reason: Well Women Exam - The patient feels well with minor complaints ,has good energy level and is sleeping well. Pap smear: history of abnormal pap and date of last pap: (2006). Contraceptive history: The pa End: 12-Sep-2007 13:37 tient is not using any method of contraception at this time. Patient does not exercise. The patient's libido is normal. The patient reports that she performs monthly self breast exam. The patient has be en using hormone replacement therapy (evista ). Note for Well Women Exam: menopausal Encounter Diagnosis: Osteopenia (733.90), Sinusitis,chronic (473.9), Allergic Rhinitis(477.9), Well Woman Exam , Medicare (V76.2), Knee pain (719.46), SOB (786.05) [facility] Office Visit On: 06-Nov-2006 7:53 Encounter Reason: Shingles - The onset of the shingles has been sudden and has been occurring in a persistent pattern for 1 weeks. The course has been constant. The shingles is characterized as red (was with a women that End: 06-Nov-2006 11:38 had shingles over week). The rash was first seen on the face (OD). There has been no progression of the rash. There has been no associated alopecia ,anorexia ,chills ,fatigue ,fever ,itching ,kidney di sease ,liver disease ,loss of sensation ,lymphadenopathy ,malaise ,mucous membrane lesions ,nail changes ,pain or weight loss. Note for Shingles: patient thinks shingles- had it before started with spot on eyeEncounter Diagnosis: Herpes zoster without mention of complication (053.9) [facility] Office Visit On: 26-Jun-2006 14:02 Encounter Reason: Well Women Exam - The patient feels well with minor complaints (has a cold) ,has good energy level and is sleeping well. Pap smear: date of last pap: (07-12, pt new to medicare and per qasim they will p End: 26-Jun-2006 14:38 ay for visit). Contraceptive history: The patient is not using any method of contraception at this time. Patient does not exercise. The patient's libido is normal. The patient reports that she performs monthly self breast exam. Calcium intake includes 1200 mg daily supplment. The patient has been using hormone replacement therapy (evista). Note for Well Women Exam: some depression after xmad after leave--talk out better, not meds Encounter Diagnosis: Osteopenia (733.90), Allergic Rhinitis(477.9), Sinusitis,chronic (473.9), Well Woman Exam , Medicare (V76.2) [facility] Historical Summary On: 22-Jun-2006 11:27 [facility] End: 22-Jun-2006 11:38 Phone Encounter On: 25-Jan-2006 17:48 Encounter Diagnosis: Unspecified Diagnosis End: 25-Jan-2006 17:49 [facility] Office Visit On: 02-Nov-2005 22:27 [facility] End: 02-Nov-2005 22:28 Payers Medicare[employer] INS[employer] ADRIENNE casas guarantor
--- OUTSIDE RECORDS SUMMARY | 2018-02-13 03:53 | XMS RPT_ITS | Continuity of Care Document ---
:1940 Author Organization [facility] Address [address] [facility] [address] [place] [address] Phone Care Team Providers Name Role Phone [...] are up to date amita check at [facility] for prevnar. dental and eye 2018, [...] End : 07-Aug-2016 Inactive Comments:03-30-16 called into [facility] in [place] [phone] UTI KETEK, 400MG (Oral Tablet) 2 (two) [...] : 12-Apr-2017 Inactive Comments:dispense one pack ZOSTAVAX, 74640JML/0.65ML (Subcutaneous Solution Reconstituted) 1 For Solution once [...] Quantity: 90 {Tablet} Refills: 1 Ordered:08-Jun-2014 Slarb ETIOLOGIST, Yesika Start : 30-Oct-2013 End : 08-Jun-2014 [...] Quantity: 60 {Tablet} Refills: 3 Ordered:08-Jun-2014 Slarb ETIOLOGIST, Yesika Start : 23-Oct-2013 End : 08-Jun-2014 [...] 10-Sep-2014 Procedures Procedure Dates Details COLONOSCOPY, DIAGNOSTIC (85544) Completed Oct-2005 Comments: adenoma, 11-29-15 Last Pap Smear, Date Completed 25-Aug-2005 left knee replacement 11-24-13 Completed Date Value Details 16-Nov-2016 SCREENING MAMM (CAD), BILAT Result: Comments: See Note; NOTES: [facility] Imaging Services [address] [place] [address] SCREENING MAMM (CAD), BILAT MR#: [id number] Acct: [id number] Name: ARIEL MATA Rep #: [id number] : 1940 F 76 From: Samuel Rhodes MD PCP: Raine Gomez MD Status: REG CLI Study: SCREENING MAMM (CAD), BILAT Date of Exam: 11/16/16 Exam# [id number] Ordering Dr: Raine Gomez MD M AMMOGRAPHY [...] delay biopsy of a clinically suspicious abnormality. [id number] Electronically Signed: Samuel Rhodes MD at 13:03 EDT Tel [phone], Service support , CC: Raine Gomez MD Office Mail Clerk: Signed 16-Nov-2015 Bilat Scrn Digital AND CAD Result: Comments: See Note; NOTES: [facility] Imaging Services [address] [place] [address] Verdana 4d Bilat Scrn Digital AND CAD MR#: [id number] Acct: [id number] Name: ARIEL MATA Rep #: [id number] : 1940 F 75 From: Kiara Neves MD PCP: Raine Gomez MD Status: REG CLI Study: Bilat Scrn Digital AND CAD Date of Exam: 11/16/15 Exam# [id number] Ordering Dr: Raine Gomez MAMMOGRAPHY - BILATERAL [...] delay biopsy of a clinically suspicious abnormality. [id number] Electronically Signed: Kiara Neves MD at 15:55 EDT Tel , Service support [phone], CC: Raine Gomez MD Office Mail Clerk: Signed 16-Nov-2015 Bilat Scrn Digital AND CAD Result: Comments: See Note; NOTES: [facility] Imaging Services [address] [place] [address] Verdana 4d Bilat Scrn Digital AND CAD MR#: [id number] Acct: [id number] Name: ARIEL MATA Rep #: [id number] : 1940 F 75 From: Kiara Neves MD PCP: Raine Gomez MD Status: REG CLI Study: Bilat Scrn Digital AND CAD Date of Exam: 11/16/15 Exam# [id number] Ordering Dr: Raine Gomez ADDENDUM by Kiara Neves MD on 11/18/15 at 1615 HPBI/Bilat Scrn Digital AND CAD 11/18/15 1622 Date cc: Raine Gomez MD * Signed ADDENDUM by Kiara Neves MD on 11/18/15 at 1615 ADDENDUM COMPARISON: Mammograms from November 03, 2014 and October 30 4. Electronically Signed: Kiara Neves MD at 16:15 EDT Tel , Service support [phone], 11/18/15 1615 Date cc: Raine Gomez MD [...] calcifications. No other significant abnormalities are identified. [facility]/Bilat Scrn Digital AND CAD IMPRESSION: Stable bilateral screening mammogram. Yearly follow-up mammogram recommended. (A) ASSES SMENT CATEGORY: BIRADS Category 2: Benign. A letter regarding these results will be sent to the patient by the facility within 30 days. Approximately 10% of breast cancers are not detected by mammograp hy. A normal mammogram should not delay biopsy of a clinically suspicious abnormality. [id number] Electronically Signed: Kiara Neves MD at 15:55 EDT Tel , Service support , CC: Raine Gomez MD Office Mail Clerk: Signed 16-Nov-2015 Dexa Bone Density Study (HP) Result: Comments: See Note; NOTES: [facility] Imaging Services [address] [place] [address] Verdana 4d Dexa Bone Density Study (HP) MR#: [id number] Acct: [id number] Name: DANG MATA Rep #: [id number] : 1940 F 75 From: Samuel Rhodes MD PCP: Raine Gomez MD Status: REG CLI Study: Dexa Bone Density Study (HP) Date of Exam: 11/16/15 Exam# [id number] Ordering Dr: Raine Ruelas i, MD STUDY: [...] Samuel Rhodes MD at 12:41 EDT Tel [phone], Service support [phone], CC: Raine Gomez MD Office Mail Clerk: Signed 03-Nov-2014 Bilat Scrn Digital AND CAD Result: Comments: See Note; NOTES: [facility] Imaging Services [address] [place] [address] Breast Imaging Report MR#: [id number] Acct: [id number] Name: ARIEL MATA Rep #: [id number] : 1940 F 74 From: Samuel Rhodes MD PCP: Raine Gomez MD Status: REG CLI Study: Bilat Scrn Digital AND CAD Date of Exam: 11/03/14 Exam# [id number] Ordering Dr: Raine Gomez MD MAMMOGRAPHY - [...] Samuel Rhodes MD at 9:32 EDT Tel [phone], Service support [phone], CC: Raine Gomez MD Office Mail Clerk: Signed 02-Nov-2014 FLU VAC, SPLIT, >3 YEARS, INTRAMUSC (86502) Comments: Lot:[id number]:06/20Dose:0.5mLRoute:IMSite:L DltdGiven By:ENDY signed Result: Comments: FLU SHOTlot: [id number]: 5*2015dose:.5 mlSite:LT armRoute: ABDULLAHISma Kathy 21-Sep-2014 Upper GI/w Small Bowel Result: Comments: See Note; NOTES: [facility] Imaging Services [address] [place] [address] Radiology Report MR#: [id number] Acct: [id number] Name: ARIEL MAAT Rep #: [id number] : 1940 F 74 From: Samuel Rhodes MD PCP: Raine Gomez MD Status: REG CLI Study: Upper GI/w Small Bowel Date of Exam: 09/21/14 Exam# [id number] Ordering Dr: Ronna Colindres MD STUDY: AIR-CONTRAST UPPER GI SERIES AND SMALL BOWEL FOLLOW-THROUGH EXAMINATION. REASON FOR EXAM: Female, 74 years old. Abdominal pain and history of prior intestinal obstruction. FLUOROSCOPY TIME (if ramirez pplied): (1:20) minutes/seconds TECHNIQUE: A air turning machine feeder film was obtained. Following this, the patient ingested barium. Images of the esophagus, stomach and duodenum were obtained. Following this, a smal l bowel follow-through examination was performed. COMPARISON: None. FINDINGS: On the air turning machine feeder film, a moderate amount of fecal material [...] Samuel Rhodes MD at 10:53 EDT Tel [phone], Service support [phone], RAD/Upper GI/w Small Bowel IMPRESSION: Unremarkable examination . Electronically Signed: Samuel Rhodes MD at 10:53 EDT Tel [phone], Service support [phone], CC: Raine Gomez MD; Ronna Colindres MD Office Mail Clerk: Signed 11-Sep-2014 Emergency Department Summary Result: Comments: See Note; NOTES: [facility] Medical Records Department [address] [place] [address] Emergency Department Summary MR#: [id number] Acct: [id number] Name: ARIEL MATA Rep #: [id number] : 1940 74 From: Tomy Ashton DO [...] she was seen at a hospital in [place], was started on some antibiotics and then [...] condition. Tomy Ashton DO T: NTS JOB: [id number] 09/11/14 1507 <Electronically signed by Tomy Ashton DO> Date Tomy Ashton DO CC: Raine Gomez MD Date Dictated: 09/04/14147 Date Transcribed: 09/04/14147 Office Mail Clerk: Signed 03-Sep-2014 Abdomen/Pelvis WITH Contrast Result: Comments: See Note; NOTES: [facility] Imaging Services [address] [place] [address] CAT Scan Report MR#: [id number] Acct: [id number] Name: ARIEL MATA Rep #: [id number] : 1940 F 74 From: Daniel Wilder MD PCP: Raine Gomez MD Status: REG ER Study: Abdomen/Pelvis WITH Contrast Date of Exam: 09/03/14 Exam# [id number] Ordering Dr: Tomy Ashton DO S TUDY: [...] at 1:35 EDT Tel , Service support [phone], CC: Raine Gomez MD; Tomy Ashton DO Office Mail Clerk: Signed 03-Sep-2014 Hepatobilliary Imaging Result: Comments: See Note; NOTES: [facility] Imaging Services [address] [place] [address] Nuclear Medicine Report MR#: [id number] Acct: [id number] Name: ARIEL MATA Rep #: [id number] : 1940 F 74 From: Thierno Pineda DO PCP: Raine Gomez MD Status: REG CLI Study: Hepatobilliary Imaging Date of Exam: 09/03/14 Exam# [id number] Ordering Dr: Raine Gomez MD CL INICAL: [...] Thierno Pineda DO at 12:38 EDT Tel [phone], Service support [phone], CC: Raine Gomez MD Office Mail Clerk: Signed 25-Jun-2014 Pelvic (Non ) Result: Comments: See Note; NOTES: [facility] Imaging Services [address] [place] [address] Ultrasound Report MR#: [id number] Acct: [id number] Name: ARIEL MATA Rep #: [id number] : 1940 F 74 From: Shilo Spencer DO PCP: Raine Gomez MD Status: REG CLI Study: Pelvic (Non ) Date of Exam: 06/25/14 Exam# [id number] Ordering Dr: Raine Gomez MD STUDY: ULTR [...] Shilo Spencer DO at 17:10 EDT Tel [phone], Service support [phone], CC: Raine Gomez MD Office Mail Clerk: Signed 12-Jun-2014 Abdomen/Pelvis WITH Contrast Result: Comments: See Note; NOTES: [facility] Imaging Services [address] [place] [address] CAT Scan Report MR#: [id number] Acct: [id number] Name: ARIEL MATA Rep #: [id number] : 1940 F 74 From: Shilo Spencer DO PCP: Raine Gomez MD Status: REG CLI Study: Abdomen/Pelvis WITH Contrast Date of Exam: 06/12/14 Exam# [id number] Ordering Dr: Raien Gomez MD STUDY: CT ABDOMEN AND PELVIS [...] Shilo Spencer DO at 11:18 EDT Tel [phone], Service support [phone], CC : Raine Gomez MD Office Mail Clerk: Signed 09-Jun-2014 Gallbladder Result: Comments: See Note; NOTES: [facility] Imaging Services [address] [place] [address] Ultrasound Report MR#: [id number] Acct: [id number] Name: ARIEL MATA Rep #: [id number] : 1940 F 74 From: Samuel Rhodes MD PCP: Raine Gomez MD Status: REG CLI Study: Gallbladder Date of Exam: 06/09/14 Exam# [id number] Ordering Dr: Raine Gomez MD STUDY: ABDOMINA L ULTRASOUND - RIGHT UPPER QUADRANT REASON FOR VISIT: Female, 74 years old. Right upper quadrant pain. TECHNIQUE: Ultrasound evaluation of the right upper quadrant was performed with real-time and static suarez-scale imaging. TECHNICAL QUALITY: Adequate. COMPARISON: None. FINDINGS: [...] Samuel Rhodes MD at 10:36 EDT Tel [phone], Service support [phone], CC: Raine Gomez MD Office Mail Clerk: Signed 11-Nov-2013 Dexa Bone Density Study (HP) Result: Comments: See Note; NOTES: [facility] Imaging Services [address] [place] [address] Bone Density Report MR#: [id number] Acct: [id number] Name: ARIEL MATA Rep #: [id number] : 1940 F 73 From: Samuel Rhodes MD PCP: Raine Gomez MD Status: REG CLI Study: Dexa Bone Density Study () Date of Exam: 11/11/13 Exam# [id number] Ordering Dr: Raine Gomez MD STUDY: DUAL [...] Samuel Rhodes MD at 13:40 EDT Tel [phone], Service support [phone], CC: Raine Gomez MD Office Mail Clerk: Signed 30-Oct-2013 Bilat Scrn Digital & CAD Result: Comments: See Note; NOTES: [facility] Imaging Services [address] [place] [address] Breast Imaging Report MR#: [id number] Acct: [id number] Name: ARIEL MATA Rep #: [id number] : 1940 F 73 From: Samuel Rhodes MD PCP: Raine Gomez MD Status: REG CLI Exam# [id number] Ordering Dr: Raine Gomez MD MAMMOGRAPHY - [...] Rhodes MD at 12:50 EDT Tel [phone], Service support [phone], CC: Raine Gomez MD Office Mail Clerk: Signed 27-Oct-2013 Chest PA and Lateral Result: Comments: See Note; NOTES: [facility] Imaging Services [address] [place] [address] Radiology Report MR#: [id number] Acct: [id number] Name: ARIEL MATA Rep #: [id number] : 1940 F 73 From: New Reyna PCP: Raine Gomez MD Status: REG CLI Study: Chest PA and Lateral Date of Exam: 10/27/13 Exam# [id number] Ordering Dr: Raine Gomez MD STUDY: X-RAY [...] Jolanta Reyna MD at 7:53 EDT Tel [phone], Service support [phone], RAD/Chest PA and Lateral IMPRESSION: No acute cardiopulmonary disease. Elec tronically Signed: New Reyna MD at 7:53 EDT Tel [phone], Service support [phone], CC: Raine Gomez MD Office Mail Clerk: Signed Immunization Name Dates Details Influenza (3 years and up) on: 05-Nov-2008 Pneumococcal (2 years and up) on: 12-Sep-2007 Family History Unknown Family Member Name Dates Details Daughter 1 Comments: [place] teaching Status: Active Daughter 2 Status: Active Father Comments: prostate cancer, [place] later in life Status: Active Mother Comments: [...] Active Living Situation: Lives alone. Comments: , latter-day goer Fabiola important in life. second boyfriedn [...] kg/m2 Body Surface Area Calculated 1.66 m2 16-Mtg-853526:17 Temperature 97.6 f Comments: Method: Temporal Pulse [...] Microscopic Examination Comments: PATIENT NOT FASTINGPERFORMED BY: CCBR-SYNARC Ngsikr6557 [facility] [id number] Bacteria Few (Normal) Mucus Threads Present (Normal) Cast Type Hyaline casts (Normal) Casts Present {/lpf} (Abnormal) Epithelial Cells (non renal) >10 {/hpf} (Abnormal) Range: 0 - 10 RBC 0-2 {/hpf} (Normal) Range: 0 - 2 WBC 6-10 {/hpf} (Abnormal) Range: 0 - 5 :40 URINALYSIS (98688) Comments: PATIENT NOT FASTINGPERFORMED BY: CCBR-SYNARC Bovhwg6234 [facility] [id number] Microscopic Examination See below: (Normal) Comments: Microscopic was indicated and was performed. Nitrite, Urine Negative (Normal) Urobilinogen,Semi-Qn 0.2 mg/dL (Normal) Range: 0.2-1.0 Bilirubin Negative (Normal) Occult Blood Negative (Normal) Ketones Negative (Normal) Glucose Negative (Normal) Protein Negative (Normal) WBC Esterase 2+ (Abnormal) Appearance Cloudy (Abnormal) Urine-Color Yellow (Normal) pH 5.0 (Normal) Range: 5.0-7.5 Specific [place] 1.021 (Normal) Range: 1.005-1.030 :40 CBC WITH MANUAL DIFF Comments: PATIENT NOT FASTINGPERFORMED BY: The Epsilon ProjectRobert Wood Johnson University Hospital at RahwayDdlvnh5496 [facility] [id number] Information: NURS DRAW (46035) Immature Grans (Abs) 0.0 {x10E3/uL} (Normal) Range: [...] 3.77-5.28 WBC 6.0 {x10E3/uL} (Normal) Range: 3.4-10.8 92-Nmp-41081:40 Metabolic Panel, Comprehensive Comments: PATIENT NOT FASTINGPERFORMED BY: LabCoRobert Wood Johnson University Hospital at RahwayFdzcne9464 [facility] [id number] (97069) ALT (SGPT) 10 [iU]/L (Normal) Range: 0-32 [...] be decreased and K increased. Clinicalcorrelation indicated. 9-Oro-369884:58 URINE ERICA CULTURE-IDENTIFICATN Comments: PATIENT NOT FASTINGPERFORMED BY: LabCoRobert Wood Johnson [facility] Hospital at RahwayYyewco4167 [facility] [id number] Information: SRC:GEOVANNY (92422) Antimicrobial MIHEAD (Normal) Comments: S = Susceptible; [...] Final report Culture,Comprehensive (Abnormal) 12-Jul-20179:21 Urinalysis, Office (64346) UA - LEUKOCYTE ESTERASE Small (Normal) UA - NITRITE Negative (Normal) URINE UROBILINGN JANETH TIMED Normal mg/dL (Normal) UA - PROTEIN Negative mg/dL (Normal) UA - PH 6 (Abnormal) UA - BLOOD Non Hemolyzed Trace (Normal) UA - SPECIFIC GRAVITY 1.020 (Normal) UA - KETONES Negative mg/dL (Normal) UA - BILIRUBIN Negative (Normal) UA - GLUCOSE Negative (Normal) 38-Och-162482:56 Renal function Panel (83571) Comments: PATIENT NOT FASTINGPERFORMED BY: The Epsilon ProjectRobert Wood Johnson [facility] Hospital at RahwayCdvqrj8552 [facility] [id number] Albumin 4.1 g/dL (Normal) Range: 3.5-4.8 Phosphorus [...] 8-27 Glucose 87 mg/dL (Normal) Range: 65-99 89-Qbn-69678:29 HgA1C , Office (42471) HgA1C , Office 5.1 % (Normal) Range: 4.6 - 7.1 57-Geg-573012:17 Metabolic Panel, Basic Comments: PATIENT NOT FASTINGPERFORMED BY: The Epsilon ProjectRobert Wood Johnson [facility] Hospital at RahwayKhwjjl3793 [facility] [id number] (33473) Calcium, Serum 9.2 mg/dL (Normal) Range: 8.7-10.3 [...] Glucose, Serum 85 mg/dL (Normal) Range: 65-99 83-Ovs-132687:48 HgA1C , Office (79250) HgA1C , Office 5.3 % (Normal) Range: 4.6 - 7.1 :44 POTASSIUM SERUM (61664) Comments: PATIENT NOT FASTINGPERFORMED BY: [facility]70 [facility] [id number] Potassium, Serum 4.0 mmol/L (Normal) Range: 3.5-5.2 09-Den-696767:16 Microscopic Examination Comments: PATIENT NOT FASTINGPERFORMED BY: [employer]6370 [facility] [id number] Bacteria Few (Normal) Mucus Threads Present (Normal) Epithelial Cells (non renal) 0-10 {/hpf} (Normal) Range: 0 - 10 RBC 3-10 {/hpf} (Abnormal) Range: 0 - 2 WBC >30 {/hpf} (Abnormal) Range: 0 - 5 17-Vtj-334467:16 URINALYSIS (14453) Comments: PATIENT NOT FASTINGPERFORMED BY: [facility] [facility]70 [facility] [id number] Microscopic Examination See below: (Normal) Comments: Microscopic was indicated and was performed. Nitrite, Urine Negative (Normal) Urobilinogen,Semi-Qn 0.2 mg/dL (Normal) Range: 0.2-1.0 Bilirubin Negative (Normal) Occult Blood Negative (Normal) Ketones Negative (Normal) Glucose Negative (Normal) Protein Negative (Normal) WBC Esterase 3+ (Abnormal) Appearance Clear (Normal) Urine-Color Yellow (Normal) pH 6.5 (Normal) Range: 5.0-7.5 Specific [place] 1.022 (Normal) Range: 1.005-1.030 73-Sbu-916983:16 Metabolic Panel, Comments: PATIENT NOT FASTINGPERFORMED BY: MADHAVI [facility] Obwpge1720 [place] [id number] Information: NURSE DRAW Comprehensive (30028) ALT (SGPT) 13 [iU]/L (Normal) Range: 0-32 [...] (Normal) Range: 65-99 :47 HgA1C , Office (51766) HgA1C , Office 5.1 % (Normal) Range: 4.6 - 7.1 :35 Urine Chloride Comments: [facility] [address] [place], [address] UR CL 82 mmol/L (Normal) :35 Urine Potassium Comments: [facility] [address] [place], [address] UR K 28.0 mmol/L (Normal) :35 Urine Sodium Comments: [facility] [address] [place], [address] UR NA 73 mmol/L (Normal) :25 CORTISOL SERUM Comments: Has pt arrived? YBASELINE OR POST MEDICATION STIMULATION?: 60 Min Post MED StimulatiTime Medication Given: [address] [place] [address] [address] [place], [id number](984 CORTISOL 30.60 ug/dL (Abnormal) Range: 3.09-22.40 Comments: Adult (AM) 4.30 - 22.40 ug/dL Adult (PM) 3.09 - 16.66 ug/dL :55 CORTISOL SERUM Comments: Has pt arrived? YBASELINE OR POST MEDICATION STIMULATION?: 30 Min Post MED StimulatiTime Medication Given: [address] [place] [address] [address] [place], [address] CORTISOL 24.20 ug/dL (Abnormal) Range: 3.09-22.40 Comments: Adult (AM) 4.30 - 22.40 ug/dL Adult (PM) 3.09 - 16.66 ug/dL :55 Potassium Comments: [facility] [address] [place], [address] K 4.4 mmol/L (Normal) Range: 3.5-5.1 Comments: Slight Hemolysis, Result may be falsely increased. :05 CORTISOL SERUM Comments: Has pt arrived? YBASELINE OR POST MEDICATION STIMULATION?: [facility] [address]az[address] [place], [address] CORTISOL 17.30 ug/dL (Normal) Range: 3.09-22.40 Comments: Adult (AM) 4.30 - 22.40 ug/dL Adult (PM) 3.09 - 16.66 ug/dL 88-Xdv-876816:11 Metabolic Panel, Comprehensive Comments: recheck in 3 weeks; PATIENT NOT FASTINGPERFORMED BY: MADHAVI [employer]70 [facility] [id number] (87899) ALT (SGPT) 7 [iU]/L (Normal) Range: 0-32 [...] mg/dL (Normal) Range: 65-99 :12 POTASSIUM URINE (29667) Comments: PATIENT NOT FASTINGPERFORMED BY: MADHAVI [employer] Kdicyq3447 [facility] [id number] Information: SRC:UR U49562 START @549AM FINISH Potassium, Urine 37.4 {mmol/24_hr} (Normal) Range: 25.0-125.0 Potassium, Urine 15.6 mmol/L (Normal) 44-Gqs-029449:00 OSMOLALITY URINE (40819) Comments: re check in 4 weeks; PATIENT WAS FASTINGPERFORMED BY: CCBR-SYNARC Awhkkd7009 [facility] [id number] BY: kabuku[address] [id number] Osmolality, Urine 551 {mOsmol/kg} (Normal) Comments: 24 hr : 300 - 900 Random: 50 - 1400 After 12hr fluid restriction: >850 06-Ytf-555399:00 OSMOLALITY BLOOD (02544) Comments: re check in 4 weeks; PATIENT WAS FASTINGPERFORMED BY: [facility]70 [facility] [id number] BY: [employer] [id number] Osmolality 291 {mOsmol/kg} (Normal) Range: 280-301 34-Vyu-996990:00 Metabolic Panel, Basic Comments: re check in 4 weeks; PATIENT WAS FASTINGPERFORMED BY: [facility]70 [facility] [id number] BY: [employer] [id number] (53907) nical Information: [id number] [facility] 135663 Calcium, Serum 9.3 mg/dL (Normal) Range: 8.7-10.3 [...] Glucose, Serum 89 mg/dL (Normal) Range: 65-99 61-Snk-704350:00 Sodium Spot Urine Comments: re check in 4 weeks; PATIENT WAS FASTINGPERFORMED BY: LabCoRobert Wood Johnson [facility] Hospital at RahwayFglcmt1813 [facility] [id number] BY: LabCoBayshore Community HospitalCxspctzxvk8968 [facility] [id number] (24513) Sodium, Urine 132 mmol/L (Normal) 50-Ukw-898816:05 POTASSIUM SERUM (07013) Comments: PATIENT NOT FASTINGPERFORMED BY: LabCo[address] [id number] Information: F03888, 829981 Potassium, Serum 5.5 mmol/L (Abnormal) Range: 3.5-5.2 39-Qhd-650693:01 LIPID PANEL (79823) Comments: PATIENT WAS FASTINGPERFORMED BY: LabCoJose [place]ille 7094170 [facility] [id number] Information: 373421,I12294 LDL/HDL Ratio 1.3 {ratio_units} (Normal) Range: 0.0-3.2 [...] Cholesterol, Total 185 mg/dL (Normal) Range: 100-199 61-Qfv-247613:05 Lactic Acid Comments: Test performed at:[facility] [address] [place], [place] [id number] LACTIC ACID 1.1 mmol/L (Normal) Range: 0.4-2.0 Comments: Specimen moderately hemolyzed. Results may be affected. 93-Foz-582645:05 Troponin-I Comments: 'TROP' Serial specimen #1, #2, #3, or #4: 1Test performed at:[facility] [address] [place] [address] TROPONIN-I < 0.02 ng/mL (Normal) Comments: TROPONIN-I EXPECTED VALUES <0.05 NEGATIVE 0.06 - 0.59 AT RISK OF WA > OR = 0.60 SUGGEST WA :21 CBC W/Diff, Automated Comments: Test performed at:[facility] [address] [place] [address] Absolute Lymph 0.72 {X10_3/ul} (Abnormal) [...] :21 Comprehensive Metabolic Profil Comments: Test performed at:[facility] Xcspehesqh3291 [facility] [place] [address] GAP 9 (Normal) Range: 5-15 CO2 26.0 [...] Comments: Please note revised CREATININE reference range unmmjvucz27/22/2015. BUN 18 mg/dL (Normal) Range: 7-18 GLU 118 mg/dL (Abnormal) Range: 70-110 Comments: Fasting Glucose result from 110 to <126 mg/dLsuggests IMPAIRED HOMEOSTASIS per A.D.A. criteria. :21 Amylase (20813) Comments: Test performed at:[facility] Dmtiesxuli8772 [facility] [place] [address] WARD 46 U/L (Normal) Range: 25-115 :21 Lipase (83432) Comments: Test performed at:[facility] Tdacdlpput5255 [facility] [place] [address] LIPASE 110 U/L (Normal) Range: 73-393 :35 Urinalysis, Office (86509) UA - LEUKOCYTE ESTERASE Trace (Normal) UA - NITRITE Negative (Normal) URINE UROBILINGN JANETH TIMED Normal mg/dL (Normal) UA - PROTEIN Negative mg/dL (Normal) UA - SPECIFIC GRAVITY 1.030 (Abnormal) UA - KETONES Negative mg/dL (Normal) UA - BILIRUBIN Negative (Normal) UA - GLUCOSE Negative (Normal) :31 Amylase Comments: Test performed at:[facility] [address] [place] [address] WARD 48 U/L (Normal) Range: 25-115 12-Jun-20148:31 CBC-Complete Blood Cnt No Diff Comments: Test performed at:[facility] Nvuvvoprxh1773 [facility] [place] [address] MPV 10.3 fL (Normal) Range: [...] :31 Comprehensive Metabolic Profil Comments: Test performed at:[facility] [address] [place] [address] GAP 6 (Normal) Range: 5-15 [...] A.D.A. criteria. :31 Lipase Comments: Test performed at:[facility] [address] [place] [address] LIPASE 122 U/L (Normal) Range: 70-290 10-Jun-20149:19 Urine Culture,Comprehensive Comments: PATIENT NOT FASTINGPERFORMED BY: [employer]6370 [facility] [id number] Information: SRC:[facility] [id number] Result 1 MUG (Normal) Comments: Mixed urogenital flora1,000 Colonies/mL Urine Culture,Comprehensive Final report (Normal) 10-Jun-20148:40 Urinalysis, Office (22274) UA - LEUKOCYTE ESTERASE Moderate (Normal) UA - NITRITE Negative (Normal) URINE UROBILINGN JANETH TIMED Normal mg/dL (Normal) UA - PROTEIN Negative mg/dL (Normal) UA - PH 6.5 (Normal) UA - BLOOD Negative (Normal) UA - SPECIFIC GRAVITY 1.020 (Normal) UA - KETONES Negative mg/dL (Normal) UA - BILIRUBIN Negative (Normal) UA - GLUCOSE Negative (Normal) 32-Bkl-101664:06 PHOSPHORUS (39681) Comments: PATIENT NOT FASTINGPERFORMED BY: [facility] [employer]70 [facility] [id number] Information: [id number] Phosphorus, Serum 3.9 mg/dL (Normal) Range: 2.5-4.5 21-Wsg-095330:06 MAGNESIUM (12219) Comments: PATIENT NOT FASTINGPERFORMED BY: [facility]6370 [facility] [id number] Magnesium, Serum 2.2 mg/dL (Normal) Range: 1.6-2.6 00-Vrx-783139:06 CALCIUM, IONIZED (55234) Comments: PATIENT NOT FASTINGPERFORMED BY: [facility]6370 [facility] [id number] Calcium, Ionized, Serum 5.3 mg/dL (Normal) Range: 4.5-5.6 03-Tgj-432022:08 Thin Comments: Source.............Cervical;EndocervicalOther..............Post MenopausalNo. of containers..01 CYTYC Thin Prep VialPATIENT NOT FASTINGPERFORMED BY: [address] prep Pap [id number] Information: [id number] (40881) See Note NEGHPV (Normal) Comments: The HPV [...] for malignant neoplasm of the cervixKerwin Altamirano Prepleater (ASCP) 38-Amz-94975:22 Microscopic Examination Comments: PATIENT WAS FASTINGPERFORMED BY: kabukuThe Rehabilitation InstituteBfyxrv7127 [facility] [id number] Bacteria None seen (Normal) Epithelial Cells (non renal) 0-10 {/hpf} (Normal) Range: 0 - 10 RBC 0-2 {/hpf} (Normal) Range: 0 - 2 WBC 0-5 {/hpf} (Normal) Range: 0 - 5 :22 CBC W/AUTO DIFF WBC Comments: copy to Dr. Madsen fax [phone]; PATIENT WAS FASTINGPERFORMED BY: [employer] Cnnywk5101 [facility] [id number] Information: [id number] (82041) Immature Grans (Abs) 0.0 {x10E3/uL} (Normal) Range: [...] 7.5 {x10E3/uL} (Normal) Range: 3.4-10.8 :22 PREALBUMIN (87825) Comments: PATIENT WAS FASTINGPERFORMED BY: [facility]psilon ProjectRobert Wood Johnson University Hospital at RahwayHjwudh2880 [facility] [id number] Prealbumin 18 mg/dL (Abnormal) Range: 20-40 :22 URINALYSIS, W/ MICRO (80338) Comments: PATIENT WAS FASTINGPERFORMED BY: kabukuTrinity Health [facility]6370 [facility] [id number] Microscopic Examination See below: (Normal) Comments: Microscopic was indicated and was performed. Nitrite, Urine Negative (Normal) Urobilinogen,Semi-Qn 0.2 mg/dL (Normal) Range: 0.0-1.9 Bilirubin Negative (Normal) Occult Blood Negative (Normal) Ketones Negative (Normal) Glucose Negative (Normal) Protein Negative (Normal) WBC Esterase Trace (Abnormal) Appearance Clear (Normal) Urine-Color Yellow (Normal) pH 6.5 (Normal) Range: 5.0-7.5 Specific [place] 1.013 (Normal) Range: 1.005-1.030 :22 METABOLIC PANEL, COMPREHENSIVE Comments: PATIENT WAS FASTINGPERFORMED BY: kabukuTrinity Health Ann Arbor Hospital6370 [facility] [id number] (09019) ALT (SGPT) 7 [iU]/L (Normal) Range: 0-32 [...] 88 mg/dL (Normal) Range: 65-99 :07 PREALBUMIN (49243) Comments: Forward to Dr Yvonne Madsen at fax phone at [address] [employer] [facility] [address]; PATIENT NOT FASTINGPERFORMED BY: [employer]ant6370 [facility]InW[facility] [place] [id number] Prealbumin 19 mg/dL (Abnormal) Range: 20-40 :07 CBC with manual diff (71974) Comments: Forward to Dr Yvonne Madsen at fax phone at [address] [facility] [place] [address]; PATIENT NOT FASTINGPERFORMED BY: [facility]70 [facility]In[facility] [id number] Information: [id number] Immature Grans (Abs) 0.0 {x10E3/uL} (Normal) Range: [...] 3.77-5.28 WBC 7.7 {x10E3/uL} (Normal) Range: 3.4-10.8 6-Asr-684070:09 URINE ERICA CULTURE-IDENTIFICATN Comments: PATIENT NOT FASTINGPERFORMED BY: MADHAVI [facility] Nicwrr2057 [facility] [id number] Information: [id number] (90975) Result 1 MUG (Normal) Comments: Mixed urogenital flora10,000-25,000 colony forming units per mL Urine Final report (Normal) Culture,Comprehensive 09-May-20138:48 Urinalysis, Office (48683) UA - LEUKOCYTE ESTERASE Small (Normal) UA - NITRITE Negative (Normal) URINE UROBILINGN JANETH TIMED Normal mg/dL (Normal) UA - PROTEIN Negative mg/dL (Normal) UA - PH 7 (Normal) UA - BLOOD Negative (Normal) UA - SPECIFIC GRAVITY 1.020 (Normal) UA - KETONES Negative mg/dL (Normal) UA - BILIRUBIN Negative (Normal) UA - GLUCOSE Negative (Normal) 41-Vaq-402828:07 URINE ERICA CULTURE-IDENTIFICATN Comments: PATIENT NOT FASTINGPERFORMED BY: LabCoRobert Wood Johnson University Hospital at RahwayZcuwwz2864 [facility] [id number] Information: SRC: URINE [id number] (85797) Antimicrobial MIHEAD (Normal) Comments: S = Susceptible; [...] pneumoniae (Normal) Urine Final report Culture,Comprehensive (Normal) 61-Xvf-51654:33 Urinalysis, Office (47248) UA - BILIRUBIN Negative (Normal) UA - BLOOD Non Hemolyzed Trace (Normal) UA - GLUCOSE Negative (Normal) UA - KETONES Negative mg/dL (Normal) UA - LEUKOCYTE ESTERASE Negative (Normal) UA - NITRITE Negative (Normal) UA - PH 7.0 (Normal) UA - PROTEIN Negative mg/dL (Normal) UA - SPECIFIC GRAVITY 1.015 (Normal) URINE UROBILINGN JANETH TIMED Normal mg/dL (Normal) 7-Xvp-369941:01 URINE ERICA CULTURE-IDENTIFICATN Comments: PATIENT NOT FASTINGPERFORMED BY: LabTrinity [facility] Hospital6370 [facility] [id number] Information: [id number] (55021) Result 1 MUG (Normal) Comments: Mixed urogenital flora50,000-100,000 colony forming units per mL Urine Final report (Normal) Culture,Comprehensive 08-Nov-20129:00 Urinalysis, Office (39411) UA - BILIRUBIN Negative (Normal) UA - BLOOD Negative (Normal) UA - GLUCOSE Negative (Normal) UA - KETONES Negative mg/dL (Normal) UA - LEUKOCYTE ESTERASE Moderate (Normal) UA - NITRITE Negative (Normal) UA - PH 6.0 (Normal) UA - PROTEIN Negative mg/dL (Normal) UA - SPECIFIC GRAVITY 1.020 (Normal) URINE UROBILINGN JANETH TIMED Normal mg/dL (Normal) 50-Nig-721991:41 Thin prep Pap Comments: Source.............Cervical;EndocervicalNo. of containers..01 CYTYC Thin Prep VialPATIENT NOT FASTINGPERFORMED BY: LabCo[address] [place] [id number] Information: [id number] ([id number]) Note: PAPSMR (Normal) Comments: The Pap smear [...] gnant neopla sm of the cervixKailey Christensen Prepleater (ASCP) 70-Wuf-347707:00 BILAT SCRN DIGITAL & CAD Radiology Report [...] suspiciousabnormality. Signed:Samuel Rhodes M.D.Oct at 1:41:11 PM [id number] Signed GP/GP If you are the referring physician and would like to consult with theradiologist who provided this interpretation, please contact Danie Goyal at [phone]. If this radiologist is unavailable, youwill be directed to another radiologist to assist. If you are a patient with a question regarding this report, pleasecont actyour referring physician directly. Professional Interpretation Provided By: [employer]: [employer], Phone , These documents contain legally protected [...] 09/23/13 1346 Sign by: Samuel Rhodes MD 1-Ifx-502409:22 URINE ERICA CULTURE (JANETH Comments: PATIENT NOT FASTINGPERFORMED BY: The Epsilon ProjectRobert Wood Johnson [facility] Hospital at RahwayVpelpe4483 [facility] [id number] Information: SRC:UR [id number] COL COUNT) (73601) Result 1 BETAGB (Normal) Comments: Beta hemolytic [...] Final report (Normal) Culture,Comprehensive :17 Urinalysis, Office (06654) UA - BILIRUBIN Negative (Normal) UA - BLOOD Non Hemolyzed Trace (Normal) UA - GLUCOSE Negative (Normal) UA - KETONES Negative mg/dL (Normal) UA - LEUKOCYTE ESTERASE Small (Normal) UA - NITRITE Negative (Normal) UA - PH 6.0 (Normal) Comments: 5.5 UA - PROTEIN Negative mg/dL (Normal) UA - SPECIFIC GRAVITY 1.025 (Normal) URINE UROBILINGN JANETH TIMED Normal mg/dL (Normal) 81-Mma-40722:12 URINE ERICA CULTURE-JANETH COL Comments: PATIENT NOT FASTINGPERFORMED BY: [facility] Sqyvdf6984 [facility] [id number] Information: SRC:UR [id number] COUNT (73578) Result 1 MUG (Normal) Comments: Mixed urogenital floraGreater than 100,000 colony forming units per mL Urine Culture,Comprehensive Final report (Normal) :10 Urinalysis, Office (18562) UA - BILIRUBIN Negative (Normal) UA - BLOOD Negative (Normal) UA - GLUCOSE Negative (Normal) UA - KETONES Negative mg/dL (Normal) UA - LEUKOCYTE ESTERASE Small (Normal) UA - NITRITE Negative (Normal) UA - PH 7.0 (Normal) UA - PROTEIN Negative mg/dL (Normal) UA - SPECIFIC GRAVITY 1.015 (Normal) URINE UROBILINGN JANETH TIMED Normal mg/dL (Normal) 11-Lkw-703156:10 URINE ERICA CULTURE (JANETH Comments: PATIENT NOT FASTINGPERFORMED BY: kabukuTrinity Health Ann [facility] Hospital6370 [facility] [id number] Information: SRC: [id number] COL COUNT) (88159) Result 1 BETAGB (Normal) Comments: Beta hemolytic [...] (CLSI 2011) Urine Final report (Normal) Culture,Comprehensive 19-Xen-33314:48 Urinalysis, Office (17500) UA - BILIRUBIN Negative (Normal) UA - BLOOD Hemolyzed Small (Normal) UA - GLUCOSE Negative (Normal) UA - KETONES Small mg/dL (Normal) UA - LEUKOCYTE ESTERASE Large (Normal) UA - NITRITE Negative (Normal) UA - PH 6.0 (Normal) UA - PROTEIN Negative mg/dL (Normal) UA - SPECIFIC GRAVITY 1.025 (Normal) URINE UROBILINGN JANETH TIMED Normal mg/dL (Normal) 2-Osr-292169:58 URINE ERICA CULTURE-IDENTIFICATN Comments: PATIENT NOT FASTINGPERFORMED BY: LabCoRobert Wood Johnson University Hospital at RahwayWecvzk6815 [facility] [id number] Information: [id number] (63445) Result 2 BETAGB (Normal) Comments: Beta hemolytic [...] 800 Colonies/mL (Normal) Urine Final report (Normal) Culture,[facility] 3-Uwn-192773:46 Urinalysis, Office (37740) UA - BILIRUBIN Negative (Normal) UA - BLOOD Non Hemolyzed Trace (Normal) UA - GLUCOSE Negative (Normal) UA - KETONES Negative mg/dL (Normal) UA - LEUKOCYTE ESTERASE Small (Normal) UA - NITRITE Negative (Normal) UA - PH 7.0 (Normal) UA - PROTEIN Negative mg/dL (Normal) UA - SPECIFIC GRAVITY 1.015 (Normal) URINE UROBILINGN JANETH TIMED Normal mg/dL (Normal) 83-Mlc-129623:00 URINE ERICA CULTURE-JANETH COL Comments: PATIENT NOT FASTINGPERFORMED BY: MADHAVI [employer]70 [facility] [id number] Information: SRC:UR [id number] COUNT (71182) Result 1 MUG (Normal) Comments: Mixed urogenital flora10,000-25,000 colony forming units per mL Urine Final report (Normal) Culture,[facility] 27-Rfm-528778:35 Urinalysis, Office (77264) UA - BILIRUBIN Negative (Normal) UA - BLOOD Negative (Normal) UA - GLUCOSE Negative (Normal) UA - KETONES Negative mg/dL (Normal) UA - LEUKOCYTE ESTERASE Trace (Normal) UA - NITRITE Negative (Normal) UA - PH 7.0 (Normal) UA - PROTEIN Negative mg/dL (Normal) UA - SPECIFIC GRAVITY 1.015 (Normal) URINE UROBILINGN JANETH TIMED 2 mg/dL (Normal) 68-Aia-22414:38 CALCIFIDIOL (63727) VIT D 25 Comments: PATIENT WAS FASTINGPERFORMED BY: [employer] [facility] [id number] Vitamin D, 25-Hydroxy 37.7 ng/mL (Normal) Range: 30.0-100.0 Comments: Vitamin D deficiency has been defined by the [place] of[place]icine and an Endocrine Society practice guideline as alevel of serum 25-OH vitamin D less than 20 ng/mL (1,2).The Endocrine Society went on to further define vitamin Dinsufficiency as a level between 21 and 29 ng/mL (2).1. IOM ([place] of [place]). 2010. Dietary reference intakes for calcium and D. [place]: The National Academies Press.2. Aaron MF, Curry NC, Viet ALLISON, et al. Evaluation, treatment, and prevention of vitamin D deficiency: an Endocrine Society clinical practice guideline. JCEM. 2010; 96(7):1911-30. :38 Lipid Panel (16965) Comments: PATIENT WAS FASTINGPERFORMED BY: [employer]6370 [facility] [id number] LDL/HDL Ratio 1.1 {ratio_units} (Normal) Range: 0.0-3.2 LDL Cholesterol Calc 81 mg/dL (Normal) Range: 0-99 VLDL Cholesterol Donovan 22 mg/dL (Normal) Range: 5-40 HDL Cholesterol 76 mg/dL (Normal) Comments: According to ATP-III Guidelines, HDL-C >59 mg/dL is considered anegative risk factor for CHD. Triglycerides 111 mg/dL (Normal) Range: 0-149 Cholesterol, Total 179 mg/dL (Normal) Range: 100-199 :38 CBC (Auto) (30464) Comments: PATIENT WAS FASTINGPERFORMED BY: [employer]6370 [facility] [id number] Platelets 207 {x10E3/uL} (Normal) Range: 155-379 Comments: [...] Metabolic Panel, Comments: PATIENT WAS FASTINGPERFORMED BY: LabCoRobert Wood Johnson University Hospital at RahwayWrefxy4979 [facility] [id number] Information: [id number] Comprehensive (42193) ALT (SGPT) 7 [iU]/L (Normal) Range: 0-32 [...] Glucose, Serum 86 mg/dL (Normal) Range: 65-99 85-Wwt-21144:09 Urinalysis, Office (43931) UA - BILIRUBIN Negative (Normal) UA - BLOOD Negative (Normal) UA - GLUCOSE Negative (Normal) UA - KETONES Negative mg/dL (Normal) UA - LEUKOCYTE ESTERASE Trace (Normal) UA - NITRITE Negative (Normal) UA - PH 6.0 (Normal) UA - PROTEIN Negative mg/dL (Normal) UA - SPECIFIC GRAVITY 1.020 (Normal) URINE UROBILINGN JANETH TIMED Normal mg/dL (Normal) 06-Hzy-75946:09 DEXA BONE DENSITY STUDY (HP) Radiology Report [...] Rhodes M.D.November 01, 2011 at 10:15:09 AM [id number] Signed GP/GP If you are the referring phys ician and would like to consult with theradiologist who provided this interpretation, please contact Danie Goyal at [phone]. If this radiologist is unavailable, youwill be directed to a [place] radiologist to assist. If you are a patient with a question regarding this report, pleasecontactyour referring physician directly. Professional Interpretation Provided By: [employer]: [employer], Phone , These documents contain legally protected [...] manual diff Comments: PATIENT WAS FASTINGPERFORMED BY: [facility]6370 [facility] [id number] Information: [id number] (84250) Immature Grans (Abs) 0.0 {x10E3/uL} (Normal) Range: [...] 3.77-5.28 WBC 6.2 {x10E3/uL} (Normal) Range: 4.0-10.5 64-Qhr-69560:07 CALCIFIDIOL (36948) VIT D 25 Comments: PATIENT WAS FASTINGPERFORMED BY: [facility]6370 [facility] [id number] Vitamin D, 25-Hydroxy 47.5 ng/mL (Normal) Range: 30.0-100.0 Comments: Vitamin D deficiency has been defined by the [place] of[place]icine and an Endocrine Society practice guideline as alevel of serum 25-OH vitamin D less than 20 ng/mL (1,2).The Endocrine Society went on to further define vitamin Dinsufficiency as a level between 21 and 29 ng/mL (2).1. IOM ([place]). 2010. Dietary reference intakes for calcium and D. [place]: The National AcademInvup Press.2. Aaron MF, Curry EVANS, Viet ALLISON, et al. Evaluation, treatment, and prevention of vitamin D deficiency: an Endocrine Society clinical practice guideline. JCEM. 2010; 96(7):1911-30. 44-Qyh-30753:07 Metabolic Panel, Comprehensive Comments: PATIENT WAS FASTINGPERFORMED BY: [facility] Nvtcfe1505 [facility] [id number] (94363) ALT (SGPT) 7 [iU]/L (Normal) Range: 0-40 [...] Glucose, Serum 87 mg/dL (Normal) Range: 65-99 33-Ygx-03761:07 Lipid Panel (36913) Comments: PATIENT WAS FASTINGPERFORMED BY: LabCoRobert Wood Johnson University Hospital at RahwayElgwsf4953 [facility] [id number] LDL/HDL Ratio 1.2 {ratio_units} (Normal) Range: 0.0-3.2 [...] 100-199 Comments: Please note reference interval change 09-Nvc-498845:46 BILAT SCRN DIGITAL & CAD Radiology Report See Note (Normal) Comments: MAMMOGRAPHY - BILATERAL SCREENING REASON FOR EXAM: Female, 71 years old. Routine annual screeningexamination. PERTINENT HISTORY: Sister with breast cancer. TECHNIQUE: Digital examinat ion. Mediol ateral oblique (MLO) andcraniocaudad (CC) views of both breasts were obtained. CAD: CAD wasperformed on this study. COMPARISON: Comparison is made with prior examinations dated July and [facility] er 2009. FINDINGS:The breast composition is heterogeneously [...] Rhodes M.D.October 26, 2011 at 11:14:07 AM [id number] Signed GP/GP If you are the referring physician and would like to consult with ther adiologist who provided this interpretation, please contact Danie Goyal at [phone]. If this radiologist is unavailable, youwill be directed to another radiologist to assist. If you are a patient with a question regarding this report, pleasecontactyour referring physician directly. Professional Interpretation Provided By: [employer]: [employer], Phone , These documen ts contain legally [...] 10/26/11 1121 Sign by: Samuel Rhodes MD 88-Uxr-944744:17 Thin prep Pap Comments: Source.............Cervical;EndocervicalNo. of containers..01 CYTYC Thin Prep VialPATIENT NOT FASTINGPERFORMED BY: LabCo[address] [id number] Information: [id number] ([id number]) Note: PAPSMR (Normal) Comments: The Pap smear [...] neopla sm of the cervixElizabeth July Joe, Prepleater (ASCP) 35-Vxj-195907:04 MANJULA LEON DIGITAL & CAD Radiology Report [...] Category 3: Probably Benign Finding - Initial Gmrta-JghsanuiTzjptf-wi Suggested. A letter regarding these results will [...] Report See Note (Normal) Comments: Exam Number: [id number] CLINICAL:The patient is a 61 day old woman who is postmenopausal with pastuse of hormone replacement therapy. EXAMINATION:DUAL ENERGY X-RAY ABSORPTIOMETRY / DEXA. TECH NIQUE:Bone D ensity Measurements (BMD) of lumbar spine and bilateral hipswere obtained using a HeyBubble scanner.. COMPARISON:2001 at 2006 FINDINGS: Lumbar Spine [...] Foundation [email or web address] Reported By: JANNY SALEH M.D. 60-Epl-927413:00 Thin prep Pap Comments: Source.............Cervical;EndocervicalNo. of containers..01 CYTYC Thin Prep VialPATIENT NOT FASTINGPERFORMED BY: [facility] [address] [place] [id number] Information: [id number] ([id number]) Note: PAPSMR (Normal) Comments: The Pap smear [...] MALIGNANCY.THIS SPECIMEN WAS RESCREENED PART OF OUR WATER INSPECTOR PROGRAM.Satisfactory for evaluation. Endocervical and/or squamous metaplasticc ells (endoce rvical component) are present.V76.2 ; Screening for malignant neoplasm of the cervixKlaudia Nelson, CytotechnologistNatalia Cutler, Supervisory Prepleater (ASCP) 49-Isr-02991:29 Metabolic Panel, Comments: PATIENT WAS FASTINGPERFORMED BY: [facility] Ycjayw7635 [facility] [id number] Information: [id number] Comprehensive (49227) ALT (SGPT) 10 [iU]/L (Normal) Range: 0-40 [...] Glucose, Serum 87 mg/dL (Normal) Range: 65-99 41-Tui-06993:29 CALCIFIDIOL (90959) VIT D 25 Comments: PATIENT WAS FASTINGPERFORMED BY: [employer]6370 [facility]In[facility] [id number] Vitamin D, 25-Hydroxy 25.2 ng/mL (Abnormal) Range: 32.0-100.0 Comments: Recent studies consider the lower limit of 32.0 ng/mL to be athreshold for optimal health.Alex MCKOY. J Nutr. 2004;135(2):317-22. :29 Lipid Panel (93984) Comments: PATIENT WAS FASTINGPERFORMED BY: [employer]6370 [employer] [id number] LDL Cholesterol Calc 104 mg/dL (Abnormal) Range: [...] With Differential/Platelet Comments: PATIENT WAS FASTINGPERFORMED BY: LabCoRobert Wood Johnson University Hospital at RahwayWwzmak7737 [facility] [id number] Baso (Absolute) 0.0 {x10E3/uL} (Normal) Range: 0.0-0.2 [...] Panel (14) Comments: PATIENT WAS FASTINGPERFORMED BY: LabCoRobert Wood Johnson University Hospital at RahwayZuzknz2405 [facility] [id number] A/G Ratio 1.1 (Normal) Range: 1.1-2.5 Albumin, [...] Serum 85 mg/dL (Normal) Range: 65-99 If -Tongan >60 mL/min (Normal) Range: 60-128 Comments: Note: [...] Sodium, Serum 139 mmol/L (Normal) Range: 135-145 05-Mzv-55217:41 Lipid Panel With LDL/HDL Comments: PATIENT WAS FASTINGPERFORMED BY: LabCoRobert Wood Johnson University Hospital at RahwayAwggrk9066 [facility] [id number] Ratio Cholesterol, Total 210 mg/dL (Abnormal) Range: [...] Microscopic Examination Comments: PATIENT WAS FASTINGPERFORMED BY: CCBR-SYNARCRobert Wood Johnson University Hospital at RahwayTkngzw8738 [facility] [id number] Bacteria None seen (Normal) Crystal Type Amorphous Sediment (Normal) Crystals Present (Abnormal) Epithelial Cells (non renal) >10 {/hpf} (Abnormal) Range: 0 - 10 Mucus Threads Present (Abnormal) RBC 0-3 {/hpf} (Normal) Range: 0 - 3 WBC 11-30 {/hpf} (Abnormal) Range: 0 - 5 :41 Urinalysis, Routine Comments: PATIENT WAS FASTINGPERFORMED BY: [employer] Engineeringlin6370 [facility] [id number] Appearance Clear (Normal) Bilirubin Negative (Normal) Glucose Negative (Normal) Ketones Negative (Normal) Microscopic Examination See below: (Normal) Nitrite, Urine Negative (Normal) Occult Blood Negative (Normal) pH 7.5 (Normal) Range: 5.0-7.5 Protein Negative (Normal) Specific [place] 1.018 (Normal) Range: 1.005-1.030 Urine-Color Yellow (Normal) Urobilinogen,Semi-Qn 0.2 mg/dL (Normal) Range: 0.0-1.9 WBC Esterase 3+ (Abnormal) :13 KNEE,4 OR MORE VIEWS Radiology Report See Note (Normal) Comments: Exam Number: [id number] LEFT KNEE - VIEWS STATEMENTPain. PRIOR STUDIESNone. No acute fracture or joint dislocation is shown. There is no jointeffusion. No suspicious bone lesions or pathologic calcific ations. There is mild narrowing over the medial joint compartment. IMPRESSIONMild narrowing of the medial joint compartment, otherwise negativeleft knee. Reported By: GRACE CORDERO M.D. 3-Mij-910192:55 Pap Lb, rfx HPV Comments: Source.............Cervical;EndocervicalNo. of containers..01 CYTYC Thin Prep VialPERFORMED BY: LabCoDesert Valley Hospital[address] [place] [address] [place] [id number] all pth . . (Normal) DIAGNOSIS: SPRCS (Normal) Comments: NEGATIVE FOR INTRAEPITHELIAL LESION AND MALIGNANCY.Satisfactory for evaluation. Endocervical and/or squamous metaplasticcells (endocervical component) are present.V72.31 ; Routine gynecolog ical examina Dayna Rasmussen, Prepleater (ASCP) Note: PAPSMR (Normal) Comments: The Pap [...] Report See Note (Normal) Comments: Exam Number: [id number] BONE DENSITOMETRY TECHNIQUE Bone densitometry of the [...] density is measured at 6.2% greater than hp5694. The T-value of the left femoral neck [...] cervix Planned Observations CBC WITH MANUAL DIFF (71887)Indication: Impaired fasting glucose On: 29-Wec-513626:39 Request Metabolic Panel, Comprehensive (87201)Indication: Hyperkalemia On: 24-Dex-064632:32 Request Comments: re check in 4 weeks POTASSIUM URINE (15419)Indication: Hyperkalemia On: 87-Pwk-678135:43 Request Comments: re check in 4 weeks CBC with auto diff (64926)Indication: Abdominal pain On: :03 Request Metabolic Panel, Comprehensive (59899)Indication: Abdominal pain On: :03 Request Lipase (26433)Indication: Abdominal pain On: :28 Request Amylase (18851)Indication: Abdominal pain On: :28 Request CBC (Auto) (43811)Indication: Abdominal pain On: :27 Request Metabolic Panel, Comprehensive (51118)Indication: Abdominal pain On: :27 Request URINE ERCIA CULTURE-JANETH COL COUNT (75093)Indication: UTI (lower urinary tract infection) On: :50 Request URINE ERICA CULTURE-JANETH COL COUNT (56607)Indication: UTI (lower urinary tract infection) On: 10-Jun-20148:40 Request URINE ERICA CULTURE-IDENTIFICATN (42769)Indication: Urinary frequency On: 13-Gzv-944768:47 Request Comments: recheck after finish antibiotic URINALYSIS ([id number])Indication: Urinary frequency On: :47 Request Thin prep Pap ([id number])Indication: Screening for malignant neoplasm of cervix On: 2-Ile-458972:20 Request URINALYSIS ([id number])Indication: Screening for malignant neoplasm of cervix On: 2-Nvi-262699:19 Request URINALYSIS ([id number])Indication: Screening for malignant neoplasm of cervix On: :19 Request CBC (Auto) ([id number])Indication: Screening for malignant neoplasm of cervix On: :18 Request Metabolic Panel, Comprehensive ([id number])Indication: Screening for malignant neoplasm of cervix On: :18 Request Lipid Panel ([id number])Indication: Screening for malignant neoplasm of cervix On: 8-Rdd-894383:18 Request Planned Encounters Medical; [facility] 6 Month Fu - On: 23-May-2018 8:45 [facility] Jason GARRETT, Raine Gross MD Planned Procedures Bone Density StudyBy: Jason GARRETT, On: 08-Nov-2017 Intent Raine Gross MD Comments: schedule after 11-15-17 MAMMOGRAM BREAST BILATERAL SCREENING On: 08-Nov-2017 Intent DIGITAL ([id number])By: Raine Gomez MD Comments: schedule after 11-16-17 M Raine Gomez MD INJECTION, PROLIA ([id number])By: Visit, On: 01-Aug-2017 Intent Nurse Comments: pt own med lot [id number] 10/25 given sq lt arm Flu Vaccine (Quadrivalent) [id number]: On: 23-Nov-2016 Intent Raine Gomez MD, MD, Dana Comments: Lot #[id number]-07/23/17ite-L dltd, IMDose prefilled syringegiven by:Amadou LPNVIS and ABN signed M Ear Irrigation ([id number])By: Jason On: 01-Sep-2016 Intent Raine GARRETT MD, Dana M Comments: Ear Irrigation performed on:bilateralAmount/color removed cerumen: large amountOUtcome:clear and tolerated Wax CurettesBy: Raine Gomez MD On: 01-Sep-2016 Intent Raine Gomez MD SCREENING DIGITAL TOMOSYNTHESIS OF On: 01-Sep-2016 Intent BREAST ([id number])By: Raine Gomez MD Comments: 10-22 Raine Gomez MD INJECTION, PROLIA ([id number])By: Visit, On: 01-Aug-2016 Intent Nurse Comments: [id number]/prefilled syringeR arm, IMML Long, ETIOLOGIST Flu Vaccine (Quadrivalent) 09139We: On: 20-Oct-2015 Intent Raine Gomez MD, MD, Dana Comments: FLUlot: [id number]:08/04/16site:Lt deltoidroute:IMdose:.5mlDEMICK MA M Wax CurettesBy: Raine Gomez MD On: 19-Aug-2015 Intent Raine Gomez MD Ear Irrigation ([id number])By: Jason On: 19-Aug-2015 Intent Raine GARRETT MD, Dana M DEXA SCAN AXIAL SKELETON ([id number])By: On: 19-Aug-2015 Intent Raine Gomez MD, MD, Dana Comments: after 9- M MAMMOGRAM, SCREENING, BOTH BREAST On: 19-Aug-2015 Intent ([id number])By: Raine Gomez MD Comments: after -16 due Raine Gomez MD INJECTION, PROLIA ([id number])By: Jason On: 12-Aug-2015 Intent Raine GARRETT MD, Dana M Comments: prolialot:[id number]:ite:lt subqroute:subqdose:60mgD.KP Tian MAMMOGRAM, SCREENING, BOTH BREAST On: 28-May-2015 Intent ([id number])By: Raine Gomez MD, MD, Dana M DEXA SCAN AXIAL SKELETON ([id number])By: On: 28-May-2015 Intent Raine Gomez MD, MD, Dana M INJECTION, PROLIA ([id number])By: Jason On: 01-Feb-2015 Intent Raine GARRETT MD, Dana M Comments: lot: [id number]: ite/route: L arm/SQamt: prefilled syringeVIS signed when applicableTO Anders ADMINISTRATION OF INFLUENZA VIRUS On: 02-Nov-2014 Intent VACCINE (G0008)By: Raine Gomez MD, MD, Dana M Toradol Injection, 30 mg ([id number])By: On: 03-Sep-2014 Intent Raine Gomez MD, MD, Dana Comments: Lot:[id number]:04/05/2016Dose:30mgRoute:imSite:r hipGiven By:JKMMARTIN signed M Phenergan Injection, up to 50 mg On: 03-Sep-2014 Intent (J2550)By: Raine Gomez MD Comments: 25 mg IV Raine Gomez MD INFUSION, NORMAL SALINE SOLUTION , On: 03-Sep-2014 Intent 1000 CC (Special Coverage Comments: IV Therapy [id number], 1 inchSite: L acTolerated: moderately wellno redness or swelling, no s/s infiltrationER, LPNPhenergan push - DB, [id number] Instructions Apply. See MCM: 2049) ([id number])By: Raine Gomez MD, MD, Dana M Nuclear Medicine - HIDA w/CPKBy: On: 03-Sep-2014 Intent Raine Gomez MD, MD, Dana M INJECTION, PROLIA ([id number])By: Alyssa, On: 30-Jul-2014 Intent Aura Comments: lot:[id number]:10.17route:SQdose:60mgSite:L armgiven by: Michelle Shah CAFE ATTENDANT Ultrasound - PelvisBy: Jason GARRETT, On: 24-Jun-[address] - Abdomen & Pelvis (IV Contrast On: 12-Jun-2014 Intent Needed)By: Raine Gomez MD, MD, Dana M Ultrasound - GallbladderBy: Ciesa On: 08-Jun-2014 Intent TERRAZZO JOURNEYMANKarla INJECTION, PROLIA ([id number])By: Anjum On: 03-Feb-2014 Intent Yesika DE PAZ Comments: lot [id number] 6.17leyessi Mckeon LPN ADMINISTRATION OF INFLUENZA VIRUS On: 07-Nov-2013 Intent VACCINE (G0008)By: Visit, Nurse Comments: Lot #[id number]-L dltd, IMDose prefilled syringegiven by:BALDEV TobarVIS and ABN signed FLU VAC, SPLIT, >3 YEARS, INTRAMUSC On: 07-Nov-2013 Intent ([id number])By: Visit, Nurse Bone Density StudyBy: Jason GARRETT, On: 30-Oct-2013 Intent Raine Gross MD BILATERAL MAMMOGRAMS ([id number])By: On: 30-Oct-2013 Intent Raine Gomez MD, MD, Dana M Radiology - ChestBy: Jason GARRETT, On: 27-Oct-2013 Intent Raine Gross MD EKG ([id number])By: Raine Gomez MD On: 27-Oct-2013 Intent Raine [...] Intent ()By: Raine Gomez MD Comments: Lot #:[id number] date:mount given:2ml Route: intra articular Site given:left knee Given By: Raine Honeycutt MD DRAIN/INJECT MAJOR JOINT OR BURSA On: 13-May-2013 Intent ()By: Raine Gomez MD, MD, Dana M Kenalog Injection, 10 mgm On: 03-Feb-2013 Intent (J3301)By: Raine Gomez MD Comments: kenalog 1 continue current treatment plan llot # [id number] 06-17, bupivacaine lot#[id number] Raine Gomez MD Kenalog [...] SPLIT, >3 YEARS, INTRAMUSC On: 28-Oct-2012 Intent ([id number])By: Lula Flores Pap Smear, Medicare ([id number])By: On: 28-Oct-2012 Intent Raine Gomez MD, MD, Dana M Pelvic and Breast, Medicare On: 28-Oct-2012 Intent (G0101)By: Riane Gomez MD, MD, Dana M MAMMOGRAM, SCREENING, BOTH BREASTS On: 28-Oct-2012 Intent ([id number])By: Raine Gomez MD, MD, Dana M Kenalog [...] Dana M SPECIMEN HANDLING/TRANSPORT On: 23-Jul-2012 Intent ([id number])By: Sonia Phillips LPN DXA, BONE DENSITY, AXIAL SKELETON On: 26-Oct-2011 Intent ([id number])By: Raine Gomez MD, MD, Dana M MAMMOGRAM, SCREENING, BOTH BREASTS On: 26-Oct-2011 Intent ([id number])By: Raine Goemz MD, MD, Dana M EKG ([id number])By: Raine Gomez MD On: 26-Oct-2011 Intent Raine Gomez MD Comments: see scanned document of test done to see results reviewed today with patient FLU VAC, SPLIT, >3 YEARS, INTRAMUSC On: 26-Oct-2011 Intent ([id number])By: DANIAL Mayorga Comments: Lot #:[id number] date:07.18Amount given:prefilled syringeRoute: IMSite given:Given by: VIS signed ADMINISTRATION OF INFLUENZA VIRUS On: 26-Oct-2011 Intent VACCINE (G0008)By: DANIAL Mayorga Breast Diagnostic - BilateralBy: On: 03-Apr-2011 Intent Raine Gomez MD, MD, Dana M Breast Diagnostic - BilateralBy: On: 04-Aug-2010 Intent Raine Gomez MD, MD, Dana M PNEUM VAC ADLT/IMUMNOSPR, SBC/INTRM On: 06-Jun-2010 Intent ([id number])By: Raine Gomez MD Comments: lot # [id number]- 04/09/1126afeb-LUNZhkrfj-PHasdr- 0.5 ML tolerated well Raine Gómez LPN, MD TD Injection , IM ([id number])By: On: 06-Jun-2010 Intent Raine Gomez MD, MD, Dana Comments: lot # [id number]- 12/21/1195kyge-AQNBwmaem-MBkrjq- 0.5ML tolerated well Katie Dunlap ADMINISTRATION OF PNEUMOCOCCAL On: 06-Jun-2010 Intent VACCINE (G0009)By: Raine Gomez MD, MD, Dana M Inhaler Demonstration ([id number])By: On: 30-May-2010 Intent Rayshawn KUNZ Karla Mahmood Pulse Oximetry ([id number])By: Rayshawn KUNZ, On: 30-May-2010 Intent Karla Mahmood Aerosol Treatment ([id number])By: Rayshawn On: 30-May-2010 Intent Karla KUNZ Eprescribed [...] MAMMOGRAM, SCREENING, BOTH BREASTS On: 22-Oct-2009 Intent ([id number])By: Raine Gomez MD, MD, Dana M DXA, BONE DENSITY, AXIAL SKELETON On: 22-Oct-2009 Intent ([id number])By: Raine Gomez MD, MD, Dana M FLU VAC, SPLIT, >3 YEARS, INTRAMUSC On: 05-Nov-2008 Intent ([id number])By: Mast RN, Amanda ADMINISTRATION OF INFLUENZA VIRUS On: 05-Nov-2008 Intent VACCINE (G0008)By: Mast RN, Amanda ADMINISTRATION OF PNEUMOCOCCAL On: 12-Sep-2007 Intent VACCINE (G0009)By: Raine Gomez MD, MD, Dana M PNEUM VAC ADLT/IMUMNOSPR, SBC/INTRM On: 12-Sep-2007 Intent ([id number])By: Raine Gomez MD, MD, Dana M ELECTROCARDIOGRAM, COMPLETE (ECG) On: 12-Sep-2007 Intent ([id number])By: Raine Gomez MD, MD, Dana M Pulse Oximetry ([id number])By: Jason On: 12-Sep-2007 Intent Raine GARRETT MD, Raine Dunlap Pap Smear, Medicare ([id number])By: On: 12-Sep-2007 Intent Raine Gomez MD, MD, Raine Dunlap Pelvic and Breast, Medicare On: 12-Sep-2007 Intent (G0101)By: Raine Gomez MD, MD, Dana M MAMMOGRAM, SCREENING, BOTH BREASTS On: 12-Sep-2007 Intent ([id number])By: Raine Gomez MD, MD, Raine Dunlap Bone Density StudyBy: Jason GARRETT, On: 26-Jun-2006 Intent Raine Gross MD MAMMOGRAM, SCREENING, BOTH BREASTS On: 26-Jun-2006 Intent ([id number])By: Raine Gomez MD, MD, Dana M Pap [...] M INJECTION, PROLIA Ordered: 03-Feb-2014 Pending Slarb ETIOLOGIST, Yesika INJECTION, PROLIA Ordered: 12-Aug-2015 Pending Raine [...] The patient does have durable power of assembler cards and announcements and living will. The patient has noticed [...] The patient does have durable power of assembler cards and announcements and living will. The patient has noticed [...] (10 End: 27-Oct-2013 11: Dr. Sonny Young, [place] [phone]) . There have been no problems with [...] cough little with some sputum. started in [place] with the allergies. not on antihsitamineEncounter Diagnosis: [...] The patient does have durable power of assembler cards and announcements and living will. The patient has noticed [...]
--- OUTSIDE RECORDS SUMMARY | 2018-02-13 03:54 | XMS RPT_ITS | Continuity of Care Document ---
:1940 Author Organization [facility] Address [address] [facility] [address] [place] [address] Phone Care Team Providers Name Role Phone Raine Gomez MD Unavailable Ronna Colindres MD Unavailable DANIAL Mayorga Unavailable Unavailable Long Sara DE PAZ Unavailable Unavailable Unavailable Unavailable Problems Name Dates [...] Active Colon polyps (K63.5, 211.3) Comments: 10/11, -, 11-20 good Status: Active Current nonsmoker (Renamed [...] 11-16-15, with Medicare guidelines, pap w as 2013, immunizations are up to date amita check at [facility] for prevnar. dental and eye 2018, 6CIT=, PHQ-9=0, last eye exam was with Dr. Membreno in the summer of 2017 and included glaucoma screening Status: Active Encounter for screening mammogram for breast cancer (Renamed from Visit for screening mammogram) (Z12.31, V76.12) Status: Active GERD (gastroesophageal reflux disease) (K21.9, 530.81) Comments: pepcid workign well had PPI if needs to use spraingly for 2 week course if bad flare. 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 reveiwed with patient 11-18 improved BD, on prolia Status: Active Potassium disorder [...] has esophageal cancer to liver Status: Active Unspecified Diagnosis Status: Active Medications Name Dates Details Pepcid [...] Raine Escobar MD Start : 05-Jul-2017 Active Triamcinolone Acetonide 0.1 % Mouth/Throat Paste 1 (one) Application apply to oral ulcer bid prn for 30 days Quantity: 1 {Applicator} Refills: 3 Ordered:29-Nov-2017 Jason GARRETT, Raine Escobar MD Start : 29-Nov-2017 Active Comments:patient prefers name brand KENALOG ORABASE IF AVAILABLE but aware insurance coverage may be better wgeneric Vitamin D3 1000 UNIT Oral Capsule 1 qd (1000 UNIT) Active Womens One Daily Oral Tablet 1 qd Active Comments:gummies Zithromax Z-Shahid 250 MG Oral Tablet uad Tablet as directed until gone for 0 days Quantity: 1 {Package} Refills: 0 Ordered:15-Jan-2018 Raine Gomez MD, MD, Dana M Start : 15-Jan-2018 Active ACTONEL, 150MG (Oral Tablet) 1 Tablet monthly [...] days Quantity: 14 {Tablet} Refills: 0 Ordered:23-Jul-2012 Karla Tabares CNP Start : 23-Jul-2012 End : 30-Jul-2012 Inactive [...] End : 07-Aug-2016 Inactive Comments:03-30-16 called into [facility] in [place] [phone] UTI KETEK, 400MG (Oral Tablet) 2 (two) [...] (Oral Tablet Chewable) bid (2000 UNIT) Inactive ZOSTAVAX, 26571GHS/0.65ML (Subcutaneous Solution Reconstituted) 1 For Solution once [...] days Quantity: 90 {Tablet} Refills: 1 Ordered:08-Jun-2014 SlaYesika lovell LPN Start : 30-Oct-2013 End : 08-Jun-2014 Discontinued HydroCHLOROthiazide 12.5 MG Oral Capsule 1 (one) Capsule qd for 0 days Quantity: 90 {Capsule} Refills: 3 Ordered:01-Sep-2016 Jason GARRETT, Raine Escobar MD Start : 01-Sep-2016 End : 01-Sep-2016 Discontinued Hydrocodone-Acetaminophen 5-325 MG Oral Tablet 1 (one) Tablet Tablet q 6 hours prn for 0 days Quantity: 30 {Tablet} Refills: 0 Ordered:02-Jan-2017 Kathleen Schwartz Start : 14-Mar-2016 End : 02-Jan-2017 Discontinued Comments:thirty MOBIC, 7.5MG (Oral Tablet) 1 Tablet bid prn for 0 days Quantity: 60 {Tablet} Refills: 3 Ordered:08-Jun-2014 Yesika Valero LPN Start : 23-Oct-2013 End : 08-Jun-2014 Discontinued [...] and exercise. Status: Resolved as of 08-Nov-2017 Hearing loss of left ear due to cerumen impaction (H61.22, 389.8) Status: Resolved as of 01-Jan-2018 Heart burn (R12, 787.1) Comments: better now [...] (M23.92, 717.9) Comments: saw Dr. madsen and xrjimenez jackson 12-21 Status: Inactive as of 14-Mar-2016 Knee pain (M25.569, 719.46) Comments: put on mobic by Dr. madsen ortho sx in [place]. OA and also tried glucosamin not help amita inject left knee needs injected. 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) Status: Inactive as of 05-Nov-2015 Need for prophylactic vaccination and inoculation against influenza (Z23, V04.81) Status: Resolved as of 08-Jan-2017 Osteopenia (M85.80, 733.90) Comments: bd 10-17 Status: Inactive as of 28-May-2015 Other specified [...] 10-Sep-2014 Procedures Procedure Dates Details COLONOSCOPY, DIAGNOSTIC (87730) Completed Oct-2005 Comments: adenoma, 11-29-15 Last Pap Smear, Date Completed 25-Aug-2005 left knee replacement 11-24-13 Completed Date Value Details 02-Jan-2018 DIAG MAMM W/CAD, UNILAT Result: Comments: See Note; NOTES: [facility] Imaging Services [address] [place] [address] DIAG MAMM W/CAD, UNILAT MR#: [id number] Acct: [id number] Name: ARIEL MATA Rep #: [id number] : 1940 F 77 From: Samuel Rhodes MD PCP: Raine Gomez MD Status: REG CLI Study: DIAG MAMM W/CAD, UNILAT Date of Exam: 01/02/18 Exam# [id number] Ordering Dr: Raine Gomez MD MAMMOGRAPH Y - UNILATERAL DIAGNOSTIC: LEFT BREAST REASON FOR EXAM: Female, 77 years old. Abnormal screening mammogram. PERTINENT HISTORY: Sister with breast cancer. TECHNIQUE: Compression spot views of the left breast as well as a 90 degree lateral view were obtained. CAD: Full Field Digital Mammography with Computer Added Detection was performed. COMPARISON: Comparison is made with prior mammogram dated Dec. FINDINGS: Breast Composition: The breasts are heterogeneously dense, which may obscure small masses. There are no dominant masses or suspicious calc ifications. The previously seen questionable nodular density on the caveat that view laterally is not seen at this time. No other significant abnormalities are identified. BI/DIAG MAMM W/CAD, UNILAT IMPRESSION: Stable unilateral diagnostic mammogram. One year follow-up mammogram recommended. (A) ASSESSMENT CATEGORY: BIRADS Category 1: Negative. A letter regarding these results will be sent to the patient by the facility within 30 days. Approximately 10% of breast cancers are not detected by mammography. A normal mammogram should not delay biopsy of a clinically suspicious abnormality. Electronically Signed: Samuel Rhodes MD at 14:50 EST Tel [phone], Service support , CC: Raine Gomez MD Dental Associate: Signed 01-Jan-2018 Dexa Bone Density Study Result: Comments: See Note; NOTES: [facility] Imaging Services [address] [place] [address] Dexa Bone Density Study MR#: [id number] Acct: [id number] Name: ARIEL MATA Rep #: [id number] : 1940 F 77 From: Samuel Rhodes MD PCP: Raine Gomez MD Status: REG CLI Study: Dexa Bone Density Study Date of Exam: 01/01/18 Exam# [id number] Ordering Dr: Raine Gomez MD STUDY: JUANJOSE L ENERGY X-RAY ABSORPTIOMETRY / DXA REASON FOR EXAM: Female, 77 years old. The patient is postmenopausal. Loss of height. TECHNIQUE: Bone Mineral Density (BMD) measurements of lumbar spine and bilater al hips were obtained. COMPARISON: Comparison is made with prior study dated November 16, 2015. FINDINGS: Lumbar Spine (L1-L4): g/cm2 (1.215) / T-score (0.1) / Z-sc ore (1.9) Findings are suggestive of normal bone density with a low fracture risk. Left Femur Total: g/cm2 (0.768) / T-score (-1.9) / Z-score (-0.1) Left Femoral Neck: g/cm2 (0.681) / T-score (-2.6) / Z-score (-0.6) Right Femur Total: g/cm2 (0.826) / T-score (-1.4) / Z-score (0.4) Right Femoral Neck: g/cm2 (0.745) / T-score (-2.1) / Z-score (-0.1) The T- Scores on the most recent prior examination we re: Lumbar Spine (L1-L4): There has been improvement of bone density since the previous examination. Left Femur Total: which represents an improvement of 2.3%. Right Femur Total: which represents an i mprovement of 1.5%. BD/Dexa Bone Density Study IMPRESSION: The patient is considered osteoporotic as outlined below according to World Ivan Orga nization (WHO) criteria with a high fracture risk. [...] Densitometry http://www.iscd.org 3. National Osteoporosis Foundation http://www.nof.org Electron ically Signed: Samuel Rhodes MD at 9:33 EST Tel [phone], Service support , CC: Raine Gomez MD Dental Associate: Signed 01-Jan-2018 SCREENING MAMM (CAD), BILAT Result: Comments: See Note; NOTES: [facility] Imaging Services [address] [place] [address] SCREENING MAMM (CAD), BILAT MR#: [id number] Acct: [id number] Name: ARIEL MATA Rep #: : 1940 F 77 From: Samuel Rhodes MD PCP: Raine Gomez MD Status: REG CLI Study: SCREENING MAMM (CAD), BILAT Date of Exam: 01/01/18 Exam# [id number] Ordering Dr: Raine Gomez MD MA MMOGRAPHY - BILATERAL SCREENING REASON FOR EXAM: Female, 77 years old. Routine annual screening examination. PERTINENT HISTORY: Sister with breast cancer. TECHNIQUE: Digital bilateral breast lizette (3D mammographic acquisition) in the CC and MLO projections. 2-D mediolateral oblique (MLO) and craniocaudad (CC) views of both breasts were obtained. CAD: Full Field Digital Mammography with Computer Adde d Detection was performed. COMPARISON: Comparison is made with prior study dated November 16, 2016 and November 16, 2015. FINDINGS: Breast Composition: The breasts ar e heterogeneously dense, which may obscure small masses. I suspect a 6.1 mm slightly irregular nodular density seen on the cranial caudad view of the left breast laterally. The patient will be recalled for additional views including compression spot views in the craniocaudad projection and 90 degree lateral view of the left breast. Stable asymmetry of breast tissue with more breast tissue is seen in the right breast as compared to the left side. No other significant abnormalities are identified. BI/SCREENING MAMM (CAD), BILAT IMPRESSION: Clark ggestion of a 6.1 mm nodular density in the lateral aspect of the left breast as seen on the craniocaudad view. The patient will be called for additional views of the breast. Recall Side: Left Breast _ ASSESSMENT CATEGORY: BIRADS Category 0: Incomplete. Need additional imaging evaluation. A letter regarding these results will be sent to the patient by the facility w ithin 30 days. Approximately 10% of breast cancers are not detected by mammography. A normal mammogram should not delay biopsy of a clinically suspicious abnormality. [id number] Electronically Signed: Tyree Rhodes MD at 14:24 EST Tel [phone], Service support , CC: Raine Gomez MD Dental Associate: Signed 16-Nov-2016 SCREENING MAMM (CAD), BILAT Result: Comments: See Note; NOTES: [facility] Imaging Services [address] [place] [address] SCREENING MAMM (CAD), BILAT MR#: [id number] Acct: [id number] Name: ARIEL MATA Rep #: [id number] : 1940 F 76 From: Samuel Rhodes MD PCP: Raine Gomez MD Status: [facility] Study: SCREENING MAMM (CAD), BILAT Date of Exam: 11/16/16 Exam# [id number] Ordering Dr: Raine Gomez MD M AMMOGRAPHY [...] delay biopsy of a clinically suspicious abnormality. [id number] Electronically Signed: Samuel Rhodes MD at 13:03 EDT Tel [phone], Service support , CC: Raine Gomez MD Dental Associate: Signed 16-Nov-2015 Bilat Scrn Digital AND CAD Result: Comments: See Note; NOTES: [facility] Imaging Services [address] [place] [address] Verdana 4d Bilat Scrn Digital AND CAD MR#: [id number] Acct: [id number] Name: ARIEL MATA Rep #: [id number] : 1940 F 75 From: Kiara Neves MD PCP: Raine Gomez MD Status: REG CLI Study: Bilat Scrn Digital AND CAD Date of Exam: 11/16/15 Exam# [id number] Ordering Dr: Raine Gomez MAMMOGRAPHY - BILATERAL [...] delay biopsy of a clinically suspicious abnormality. [id number] Electronically Signed: Kiara Neves MD at 15:55 EDT Tel , Service support , CC: Raine Gomez MD Dental Associate: Signed 16-Nov-2015 Bilat Scrn Digital AND CAD Result: Comments: See Note; NOTES: [facility] Imaging Services [address] [place] [address] Verdana 4d Bilat Scrn Digital AND CAD MR#: [id number] Acct: [id number] Name: ARIEL MATA Rep #: [id number] : 1940 F 75 From: Kiara Neves MD PCP: Bonezzi MD,Raine Status: REG CLI Study: Bilat Scrn Digital AND CAD Date of Exam: 11/16/15 Exam# [id number] Ordering Dr: Raine Gomez ADDENDUM by Kiara Neves MD on 11/18/15 at 1615 HPBI/Bilat Scrn Digital AND CAD 11/18/15 1622 Date cc: Raine Gomez MD * Signed ADDENDUM by Kiara Neves MD on 11/18/15 at 1615 ADDENDUM COMPARISON: Mammograms from November 03, 2014 and October 30 4. Electronically Signed: Kiara Neves MD at 16:15 EDT Tel , Service support [phone], 11/18/15 161 Date cc: Raine Gomez MD * Meche [...] delay biopsy of a clinically suspicious abnormality. [id number] Electronically Signed: Kiara Neves MD at 15:55 EDT Tel , Service support , CC: Raine Gomez MD Dental Associate: Signed 16-Nov-2015 Dexa Bone Density Study (HP) Result: Comments: See Note; NOTES: [facility] Imaging Services [address] [place] [address] Verda 4d Dexa Bone Density Study (HP) MR#: [id number] Acct: [id number] Name: DANG MATA Rep #: [id number] : 1940 F 75 From: Samuel Rhodes MD PCP: Raine Gomez MD Status: [facility] CLI Study: Dexa Bone Density Study (HP) Date of Exam: 11/16/15 Exam# [id number] Ordering Dr: Raine Ruelas i, MD STUDY: [...] Samuel Rhodes MD at 12:41 EDT Tel [phone], Service support [phone], CC: Raine Gomez MD Dental Associate: Signed 03-Nov-2014 Bilat Scrn Digital AND CAD Result: Comments: See Note; NOTES: [facility] Imaging Services [address] [place] [address] Breast Imaging Report MR#: [id number] Acct: [id number] Name: ARIEL MATA Rep #: [id number] : 1940 F 74 From: Samuel Rhodes MD PCP: Raine Gomez MD Status: REG CLI Study: Bilat Scrn Digital AND CAD Date of Exam: 11/03/14 Exam# [id number] Ordering Dr: Raine Gomez MD MAMMOGRAPHY - [...] Samuel Rhodes MD at 9:32 EDT Tel [phone], Service support [phone], CC: Raine Gomez MD Dental Associate: Signed 02-Nov-2014 FLU VAC, SPLIT, >3 YEARS, INTRAMUSC ([id number]) Comments: Lot:[id number]:06/20Dose:0.5mLRoute:IMSite:L DltdGiven By:ENDY signed Result: Comments: FLU SHOTlot: [id number]: 5*2015dose:.5 mlSite:LT armRoute: COLTDSma Kathy 21-Sep-2014 Upper GI/w Small Bowel Result: Comments: See Note; NOTES: [facility] Imaging Services [address] [place] [address] Radiology Report MR#: [id number] Acct: [id number] Name: ARIEL MATA Rep #: [id number] : 1940 F 74 From: Samuel Rhodes MD PCP: Raine Gomez MD Status: REG CLI Study: Upper GI/w Small Bowel Date of Exam: 09/21/14 Exam# [id number] Ordering Dr: Ronna Colindres MD STUDY: AIR-CONTRAST UPPER GI SERIES AND SMALL BOWEL FOLLOW-THROUGH EXAMINATION. REASON FOR EXAM: Female, 74 years old. Abdominal pain and history of prior intestinal obstruction. FLUOROSCOPY TIME (if clark pplied): (1:20) minutes/seconds TECHNIQUE: A mail list librarian film was obtained. Following this, the patient ingested barium. Images of the esophagus, stomach and duodenum were obtained. Following this, a [facility] l bowel follow-through examination was performed. COMPARISON: None. FINDINGS: On the mail list librarian film, a moderate amount of fecal material [...] Samuel Rhodes MD at 10:53 EDT Tel [phone], Service support [phone], RAD/Upper GI/w Small Bowel IMPRESSION: Unremarkable examination . Electronically Signed: Samuel Rhodes MD at 10:53 EDT Tel [phone], Service support [phone], CC: Raien Gomez MD; Ronna Colindres MD Dental Associate: Signed 11-Sep-2014 Emergency Department Summary Result: Comments: See Note; NOTES: [facility] Medical Records Department [address] [place] [address] Emergency Department Summary MR#: [id number] Acct: [id number] Name: ARIEL MATA Rep #: [id number] : 1940 74 From: Tomy Ashton DO [...] she was seen at a hospital in [place], was started on some antibiotics and then [...] condition. Tomy Ashton DO T: NTS JOB: [id number] 09/11/14 1507 <Electronically signed by Tomy Ashton DO> Date Tomy Ashton DO CC: Raine oGmez MD Date Dictated: 09/04/14147 Date Transcribed: 09/04/14147 Dental Associate: Signed 03-Sep-2014 Abdomen/Pelvis WITH Contrast Result: Comments: See Note; NOTES: [facility] Imaging Services [address] [place] [address] CAT Scan Report MR#: [id number] Acct: [id number] Name: ARIEL MATA Rep #: [id number] : 1940 F 74 From: Daniel Wilder MD PCP: Raine Gomez MD Status: REG ER Study: Abdomen/Pelvis WITH Contrast Date of Exam: 09/03/14 Exam# [id number] Ordering Dr: Tomy AshtonDY: CT ABDOMEN AND PELVIS WITH CONTRAST REASON [...] at 1:35 EDT Tel , Service support [phone], CC: Raine Gomez MD; Tomy Ashton DO Dental Associate: Signed 03-Sep-2014 Hepatobilliary Imaging Result: Comments: See Note; NOTES: [facility] Imaging Services [address] [place] [address] Nuclear Medicine Report MR#: [id number] Acct: [id number] Name: ARIEL MATA Rep #: [id number] : 1940 F 74 From: Thierno Pineda DO PCP: Raine Gomez MD Status: REG CLI Study: Hepatobilliary Imaging Date of Exam: 09/03/14 Exam# [id number] Ordering Dr: Raine Gomez MD CL INICAL: [...] Thierno Pineda DO at 12:38 EDT Tel [phone], Service support [phone], CC: Raine Gomez MD Dental Associate: Signed 25-Jun-2014 Pelvic (Non ) Result: Comments: See Note; NOTES: [facility] Imaging Services [address] [place] [address] Ultrasound Report MR#: [id number] Acct: [id number] Name: ARIEL MATA Rep #: [id number] : 1940 F 74 From: Shilo Spencer DO PCP: Raine Gomez MD Status: REG CLI Study: Pelvic (Non ) Date of Exam: 06/25/14 Exam# [id number] Ordering Dr: Raine Gomez MD STUDY: ULTR [...] Shilo Spencer DO at 17:10 EDT Tel [phone], Service support [phone], CC: Raine Gomez MD Dental Associate: Signed 12-Jun-2014 Abdomen/Pelvis WITH Contrast Result: Comments: See Note; NOTES: [facility] Imaging Services [address] [place] [address] CAT Scan Report MR#: [id number] Acct: [id number] Name: ARIEL MATA Rep #: [id number] : 1940 F 74 From: Shilo Spencer DO PCP: Raine Gomez MD Status: REG CLI Study: Abdomen/Pelvis WITH Contrast Date of Exam: 06/12/14 Exam# [id number] Ordering Dr: Raine Gomez MD STUDY: CT [...] changes in the lung. Electronically Signed: Shilo FrazieronDO at 11:18 EDT Tel [phone], Service support [phone], CC : Raine Gomez MD Dental Associate: Signed 09-Jun-2014 Gallbladder Result: Comments: See Note; NOTES: [facility] Imaging Services [address] [place] [address] Ultrasound Report MR#: [id number] Acct: [id number] Name: ARIEL MATA Rep #: [id number] : 1940 F 74 From: Samuel Rhodes MD PCP: Raine Gomez MD Status: REG CLI Study: Gallbladder Date of Exam: 06/09/14 Exam# [id number] Ordering Dr: Raine Gomez MD STUDY: ABDOMINA [...] Samuel Rhodes MD at 10:36 EDT Tel [phone], Service support [phone], CC: Raine Gomez MD Dental Associate: Signed 11-Nov-2013 Dexa Bone Density Study () Result: Comments: See Note; NOTES: [facility] Imaging Services [address] [place] [address] Bone Density Report MR#: [id number] Acct: [id number] Name: MATAARIEL L Rep #: [id number] : 1940 F 73 From: Samuel Rhodes MD PCP: Raine Gomez MD Status: [facility] Study: Dexa Bone Density Study (HP) Date of Exam: 11/11/13 Exam# [id number] Ordering Dr: Raine Gomez MD STUDY: DUAL [...] Samuel Rhodes MD at 13:40 EDT Tel [phone], Service support [phone], CC: Raine Gomez MD Dental Associate: Signed 30-Oct-2013 Bilat Scrn Digital & CAD Result: Comments: See Note; NOTES: [facility] Imaging Services [address] [place] [address] Breast Imaging Report MR#: [id number] Acct: [id number] Name: ARIEL MATA Rep #: [id number] : 1940 F 73 From: Samuel Rhodes MD PCP: Raine Gomez MD Status: REG CLI Exam# [id number] Ordering Dr: Raine Gomez MD MAMMOGRAPHY - [...] Rhodes MD at 12:50 EDT Tel [phone], Service support [phone], CC: Raine Gomez MD Dental Associate: Signed 27-Oct-2013 Chest PA and Lateral Result: Comments: See Note; NOTES: [facility] Imaging Services [address] [place] [address] Radiology Report MR#: [id number] Acct: [id number] Name: ARIEL MATA Rep #: [id number] : 1940 F 73 From: New Reyna PCP: Raine Gomez MD Status: REG CLI Study: Chest PA and Lateral Date of Exam: 10/27/13 Exam# [id number] Ordering Dr: Raine Gomez MD STUDY: X-RAY [...] Jolanta Reyna MD at 7:53 EDT Tel [phone], Service support [phone], RAD/Chest PA and Lateral IMPRESSION: No acute cardiopulmonary disease. Elec tronically Signed: New Reyna MD at 7:53 EDT Tel [phone], Service support [phone], CC: Raine Gomez MD Dental Associate: Signed Immunization Name Dates Details Influenza (3 years and up) on: 05-Nov-2008 Pneumococcal (2 years and up) on: 12-Sep-2007 Family History Unknown Family Member Name Dates Details Daughter 1 Comments: [place] teaching Status: Active Daughter 2 Status: Active Father Comments: prostate cancer, [place] later in life Status: Active Mother Comments: [...] Active Living Situation: Lives alone. Comments: , syn[employer] goer Fabiola important in life. second boyfriedn 10-22 Status: Active No Drug Use Status: Active Non Smoker/No Tobacco Use Status: Active Tobacco use: Never smoker. Status: Active Smoking Status Name Dates Details Never smoker Vital Signs Date Test Result Details :20 Weight 140 lb Height 61 in [...] kg/m2 Body Surface Area Calculated 1.66 m2 :17 Temperature 97.6 f Comments: Method: Temporal Pulse [...] Height 0 in Head Circumference 0.00 cm 56-Oib-321476:05 Pulse 60 /min Comments: Pattern: Regular Respiration [...] Microscopic Examination Comments: PATIENT NOT FASTINGPERFORMED BY: [employer] [facility] [id number] Bacteria Few (Normal) Mucus Threads Present (Normal) Cast Type Hyaline casts (Normal) Casts Present {/lpf} (Abnormal) Epithelial Cells (non renal) >10 {/hpf} (Abnormal) Range: 0 - 10 RBC 0-2 {/hpf} (Normal) Range: 0 - 2 WBC 6-10 {/hpf} (Abnormal) Range: 0 - 5 :40 URINALYSIS (19826) Comments: PATIENT NOT FASTINGPERFORMED BY: [employer] [facility] [id number] Microscopic Examination See below: (Normal) Comments: Microscopic was indicated and was performed. Nitrite, Urine Negative (Normal) Urobilinogen,Semi-Qn 0.2 mg/dL (Normal) Range: 0.2-1.0 Bilirubin Negative (Normal) Occult Blood Negative (Normal) Ketones Negative (Normal) Glucose Negative (Normal) Protein Negative (Normal) WBC Esterase 2+ (Abnormal) Appearance Cloudy (Abnormal) Urine-Color Yellow (Normal) pH 5.0 (Normal) Range: 5.0-7.5 Specific Cherry 1.021 (Normal) Range: 1.005-1.030 :40 CBC WITH MANUAL DIFF Comments: PATIENT NOT FASTINGPERFORMED BY: [employer] [id number] [facility] [id number] Information: NURS DRAW ([id number]) Immature Grans (Abs) 0.0 {x10E3/uL} (Normal) Range: [...] 3.77-5.28 WBC 6.0 {x10E3/uL} (Normal) Range: 3.4-10.8 95-Gye-71990:40 Metabolic Panel, Comprehensive Comments: PATIENT NOT FASTINGPERFORMED BY: [facility] [id number] [facility] [id number] ([id number]) ALT (SGPT) 10 [iU]/L (Normal) Range: 0-32 [...] be decreased and K increased. Clinicalcorrelation indicated. 9-Aso-761932:58 URINE ERICA CULTURE-IDENTIFICATN Comments: PATIENT NOT FASTINGPERFORMED BY: [facility] [id number] [facility] [id number] Information: SRC:GEOVANNY (05806) Antimicrobial MIHEAD (Normal) Comments: S = Susceptible; [...] Final report Culture,Comprehensive (Abnormal) 12-Jul-20179:21 Urinalysis, Office (88917) UA - LEUKOCYTE ESTERASE Small (Normal) UA - NITRITE Negative (Normal) URINE UROBILINGN JANETH TIMED Normal mg/dL (Normal) UA - PROTEIN Negative mg/dL (Normal) UA - PH 6 (Abnormal) UA - BLOOD Non Hemolyzed Trace (Normal) UA - SPECIFIC GRAVITY 1.020 (Normal) UA - KETONES Negative mg/dL (Normal) UA - BILIRUBIN Negative (Normal) UA - GLUCOSE Negative (Normal) 68-Ikg-901843:56 Renal function Panel (55483) Comments: PATIENT NOT FASTINGPERFORMED BY: LabCoUniversity HospitalUfsegk7556 [facility] [id number] Albumin 4.1 g/dL (Normal) Range: 3.5-4.8 Phosphorus 3.8 mg/dL (Normal) Range: 2.5-4.5 Calcium 9.1 mg/dL (Normal) Range: 8.7-10.3 Carbon Dioxide, Total 23 mmol/L (Normal) Range: 18-29 Comments: Effective July 16, 2017 Carbon Dioxide, Total reference interval will be changing to: Age Male Female 0 days - 30 days 16 - 29 16 - 29 31 days - 1 year 15 - 25 15 - 25 2 years - 5 years 17 - 26 17 - 26 6 y ears - 12 years 19 - 27 19 - 27 >12 years 20 - 29 20 - 29 Chloride 102 mmol/L (Normal) Range: 96-106 Potassium 5.2 mmol/L (Normal) Range: 3.5-5.2 Sodium 141 mmol/L (Normal) Range: 134-144 BUN/Creatinine Ratio 20 (Normal) Range: 12-28 eGFR If Africn Am 62 mL/min/1.73 (Normal) eGFR If NonAfricn Am 54 mL/min/1.73 (Abnormal) Creatinine 1.01 mg/dL (Abnormal) Range: 0.57-1.00 BUN 20 mg/dL (Normal) Range: 8-27 Glucose 87 mg/dL (Normal) Range: 65-99 95-Cpz-05173:29 HgA1C , Office (67037) HgA1C , Office 5.1 % (Normal) Range: 4.6 - 7.1 03-Mim-029179:17 Metabolic Panel, Basic Comments: PATIENT NOT FASTINGPERFORMED BY: [employer] [address] [facility] [id number] (54704) Calcium, Serum 9.2 mg/dL (Normal) Range: 8.7-10.3 [...] Glucose, Serum 85 mg/dL (Normal) Range: 65-99 12-Ldo-742619:48 HgA1C , Office (74373) HgA1C , Office 5.3 % (Normal) Range: 4.6 - 7.1 :44 POTASSIUM SERUM (59593) Comments: PATIENT NOT FASTINGPERFORMED BY: [employer] Vcydmb1977 [facility] [id number] Potassium, Serum 4.0 mmol/L (Normal) Range: 3.5-5.2 44-Nwj-059982:16 Microscopic Examination Comments: PATIENT NOT FASTINGPERFORMED BY: [employer] Ghkblw6016 [facility] [id number] Bacteria Few (Normal) Mucus Threads Present (Normal) Epithelial Cells (non renal) 0-10 {/hpf} (Normal) Range: 0 - 10 RBC 3-10 {/hpf} (Abnormal) Range: 0 - 2 WBC >30 {/hpf} (Abnormal) Range: 0 - 5 22-Jxm-918284:16 URINALYSIS (94167) Comments: PATIENT NOT FASTINGPERFORMED BY: [employer] Dxfdor7294 [facility] [id number] Microscopic Examination See below: (Normal) Comments: Microscopic was indicated and was performed. Nitrite, Urine Negative (Normal) Urobilinogen,Semi-Qn 0.2 mg/dL (Normal) Range: 0.2-1.0 Bilirubin Negative (Normal) Occult Blood Negative (Normal) Ketones Negative (Normal) Glucose Negative (Normal) Protein Negative (Normal) WBC Esterase 3+ (Abnormal) Appearance Clear (Normal) Urine-Color Yellow (Normal) pH 6.5 (Normal) Range: 5.0-7.5 Specific Cherry 1.022 (Normal) Range: 1.005-1.030 49-Cox-492634:16 Metabolic Panel, Comments: PATIENT NOT FASTINGPERFORMED BY: [facility] Okyrnt9374 [facility] [id number] Information: NURSE DRAW Comprehensive (38328) ALT (SGPT) 13 [iU]/L (Normal) Range: 0-32 [...] (Normal) Range: 65-99 :47 HgA1C , Office (10352) HgA1C , Office 5.1 % (Normal) Range: 4.6 - 7.1 :35 Urine Chloride Comments: [facility] [address] [place], [address] UR CL 82 mmol/L (Normal) :35 Urine Potassium Comments: [facility] Gnuknmnxed5315 [place], [address] UR K 28.0 mmol/L (Normal) :35 Urine Sodium Comments: [facility] Bdtdporzzz8496 [place], [address] UR NA 73 mmol/L (Normal) :25 CORTISOL SERUM Comments: Has pt arrived? YBASELINE OR POST MEDICATION STIMULATION?: 60 Min Post MED StimulatiTime Medication Given: [address] [place] [address] Ahff[address] [place], [address] CORTISOL 30.60 ug/dL (Abnormal) Range: 3.09-22.40 Comments: Adult (AM) 4.30 - 22.40 ug/dL Adult (PM) 3.09 - 16.66 ug/dL :55 CORTISOL SERUM Comments: Has pt arrived? YBASELINE OR POST MEDICATION STIMULATION?: 30 Min Post MED StimulatiTime Medication Given: [address] [place] [address] Fkqmup[address]qq[address]7487 [place], [address] CORTISOL 24.20 ug/dL (Abnormal) Range: 3.09-22.40 Comments: Adult (AM) 4.30 - 22.40 ug/dL Adult (PM) 3.09 - 16.66 ug/dL :55 Potassium Comments: [place] [address] [place], [address] K 4.4 mmol/L (Normal) Range: 3.5-5.1 Comments: Slight Hemolysis, Result may be falsely increased. :05 CORTISOL SERUM Comments: Has pt arrived? YBASELINE OR POST MEDICATION STIMULATION?: [facility] Bvovkvnqhi98[address] [place], [address] CORTISOL 17.30 ug/dL (Normal) Range: 3.09-22.40 Comments: Adult (AM) 4.30 - 22.40 ug/dL Adult (PM) 3.09 - 16.66 ug/dL 81-Cxv-978705:11 Metabolic Panel, Comprehensive Comments: recheck in 3 weeks; PATIENT NOT FASTINGPERFORMED BY: [facility] Zbndkz0770 [facility] [id number] (46838) ALT (SGPT) 7 [iU]/L (Normal) Range: 0-32 [...] Glucose, Serum 90 mg/dL (Normal) Range: 65-99 31-Plm-434335:12 POTASSIUM URINE (76593) Comments: PATIENT NOT FASTINGPERFORMED BY: Uniteam CommunicationAlta Vista Regional HospitalKyebyd1335 [facility] [id number] Information: SRC:SANTI [id number] START @549AM FINISH Potassium, Urine 37.4 {mmol/24_hr} (Normal) Range: 25.0-125.0 Potassium, Urine 15.6 mmol/L (Normal) 36-Rgw-644324:00 OSMOLALITY URINE (40048) Comments: re check in 4 weeks; PATIENT WAS FASTINGPERFORMED BY: MeetingSproutAlta Vista Regional HospitalAkmjac6690 [facility] [id number] BY: [employer] Communication[address] [id number] Osmolality, Urine 551 {mOsmol/kg} (Normal) Comments: 24 hr : 300 - 900 Random: 50 - 1400 After 12hr fluid restriction: >850 85-Hbr-736600:00 OSMOLALITY BLOOD (14191) Comments: re check in 4 weeks; PATIENT WAS FASTINGPERFORMED BY: Uniteam CommunicationAlta Vista Regional HospitalVvxrlj0843 [facility] [id number] BY: [employer] Communication[address] [id number] Osmolality 291 {mOsmol/kg} (Normal) Range: 280-301 97-Yad-092175:00 Metabolic Panel, Basic Comments: re check in 4 weeks; PATIENT WAS FASTINGPERFORMED BY: MeetingSproutAlta Vista Regional HospitalHwomwb7049 [facility] [id number] BY: Pawngo[address] [id number] (22699) nical Information: [id number] FEE [id number] Calcium, Serum 9.3 mg/dL (Normal) Range: 8.7-10.3 [...] Glucose, Serum 89 mg/dL (Normal) Range: 65-99 65-Hre-948482:00 Sodium Spot Urine Comments: re check in 4 weeks; PATIENT WAS FASTINGPERFORMED BY: [place] 0169970 [facility] [id number] BY: [address] [id number] (00059) Sodium, Urine 132 mmol/L (Normal) 85-Vdb-560549:05 POTASSIUM SERUM (38576) Comments: PATIENT NOT FASTINGPERFORMED BY: [address] [id number] Information: [id number], [id number] Potassium, Serum 5.5 mmol/L (Abnormal) Range: 3.5-5.2 10-Uuy-133087:01 LIPID PANEL (17370) Comments: PATIENT WAS FASTINGPERFORMED BY: [place] 0169970 [facility] [id number] Information: [id number] LDL/HDL Ratio 1.3 {ratio_units} (Normal) Range: 0.0-3.2 [...] Cholesterol, Total 185 mg/dL (Normal) Range: 100-199 97-Usg-462472:05 Lactic Acid Comments: Test performed at:[facility] [address] [place] [address] LACTIC ACID 1.1 mmol/L (Normal) Range: 0.4-2.0 Comments: Specimen moderately hemolyzed. Results may be affected. 28-Vus-015017:05 Troponin-I Comments: 'TROP' Serial specimen #1, #2, #3, or #4: 1Test performed at:[facility] [address] [place], [place] [id number] TROPONIN-I < 0.02 ng/mL (Normal) Comments: TROPONIN-I EXPECTED VALUES <0.05 NEGATIVE 0.06 - 0.59 AT RISK OF [place] > OR = 0.60 SUGGEST [place] 29-Rhh-97589:21 CBC W/Diff, Automated Comments: Test performed at:[facility] [address] [place] [address] Absolute Lymph 0.72 {X10_3/ul} (Abnormal) [...] :21 Comprehensive Metabolic Profil Comments: Test performed at:[facility] Isqfeyfeeh7450 [facility] [place], [place] [address] GAP 9 (Normal) Range: 5-15 CO2 26.0 [...] Comments: Please note revised CREATININE reference range dwtvdrugv86/22/2015. BUN 18 mg/dL (Normal) Range: 7-18 GLU 118 mg/dL (Abnormal) Range: 70-110 Comments: Fasting Glucose result from 110 to <126 mg/dLsuggests IMPAIRED HOMEOSTASIS per A.D.A. criteria. 89-Uwu-03054:21 Amylase (08776) Comments: Test performed at:[facility] Xmpkukhkwj7597 [facility] [place], [place] [id number] WARD 46 U/L (Normal) Range: 25-115 47-Pls-29902:21 Lipase (00049) Comments: Test performed at:[facility] [address] [place] [address]( LIPASE 110 U/L (Normal) Range: 73-393 57-Mgn-22784:35 Urinalysis, Office (89439) UA - LEUKOCYTE ESTERASE Trace (Normal) UA - NITRITE Negative (Normal) URINE UROBILINGN JANETH TIMED Normal mg/dL (Normal) UA - PROTEIN Negative mg/dL (Normal) UA - SPECIFIC GRAVITY 1.030 (Abnormal) UA - KETONES Negative mg/dL (Normal) UA - BILIRUBIN Negative (Normal) UA - GLUCOSE Negative (Normal) :31 Amylase Comments: Test performed at:[facility] [address] [place] [address] WARD 48 U/L (Normal) Range: 25-115 :31 CBC-Complete Blood Cnt No Diff Comments: Test performed at:[facility] Mfcvfcfoly[address] [place] [address] MPV 10.3 fL (Normal) Range: 6.2-12.0 [...] :31 Comprehensive Metabolic Profil Comments: Test performed at:[facility] [address] [place] [address] GAP 6 (Normal) Range: 5-15 CO2 [...] A.D.A. criteria. :31 Lipase Comments: Test performed at:[facility] [address]ub[address] [place], [place] [address] LIPASE 122 U/L (Normal) Range: 70-290 10-Jun-20149:19 Urine Culture,Comprehensive Comments: PATIENT NOT FASTINGPERFORMED BY: [facility] Vcstpn6229 [facility] [id number] Information: SRC:UR [id number] Result 1 MUG (Normal) Comments: Mixed urogenital flora1,000 Colonies/mL Urine Culture,Comprehensive Final report (Normal) :40 Urinalysis, Office (39067) UA - LEUKOCYTE ESTERASE Moderate (Normal) UA - NITRITE Negative (Normal) URINE UROBILINGN JANETH TIMED Normal mg/dL (Normal) UA - PROTEIN Negative mg/dL (Normal) UA - PH 6.5 (Normal) UA - BLOOD Negative (Normal) UA - SPECIFIC GRAVITY 1.020 (Normal) UA - KETONES Negative mg/dL (Normal) UA - BILIRUBIN Negative (Normal) UA - GLUCOSE Negative (Normal) 98-Aoi-329893:06 PHOSPHORUS (92250) Comments: PATIENT NOT FASTINGPERFORMED BY: [place] 9473970 [facility] [id number] Information: [id number] Phosphorus, Serum 3.9 mg/dL (Normal) Range: 2.5-4.5 32-Mko-086173:06 MAGNESIUM (97777) Comments: PATIENT NOT FASTINGPERFORMED BY: [place] 9473970 [facility] [id number] Magnesium, Serum 2.2 mg/dL (Normal) Range: 1.6-2.6 23-Lsd-767435:06 CALCIUM, IONIZED (17129) Comments: PATIENT NOT FASTINGPERFORMED BY: [facility]6370 [facility] [id number] Calcium, Ionized, Serum 5.3 mg/dL (Normal) Range: 4.5-5.6 89-Mqb-232188:08 Thin Comments: Source.............Cervical;EndocervicalOther..............Post MenopausalNo. of containers..01 CYTYC Thin Prep VialPATIENT NOT FASTINGPERFORMED BY: [address] [place] [address] prep Pap [id number] Information: [id number] (77571) See Note NEGHPV (Normal) Comments: The HPV [...] for malignant neoplasm of the cervixKerwin Altamirano Person Investigator (ASCP) 82-Xhj-91995:22 Microscopic Examination Comments: PATIENT WAS FASTINGPERFORMED BY: [employer]6370 [facility] [id number] Bacteria None seen (Normal) Epithelial Cells (non renal) 0-10 {/hpf} (Normal) Range: 0 - 10 RBC 0-2 {/hpf} (Normal) Range: 0 - 2 WBC 0-5 {/hpf} (Normal) Range: 0 - 5 :22 CBC W/AUTO DIFF WBC Comments: copy to Dr. Madsen fax [phone]; PATIENT WAS FASTINGPERFORMED BY: [employer]6370 [facility] [id number] Information: [id number] (07682) Immature Grans (Abs) 0.0 {x10E3/uL} (Normal) Range: [...] 7.5 {x10E3/uL} (Normal) Range: 3.4-10.8 :22 PREALBUMIN (87042) Comments: PATIENT WAS FASTINGPERFORMED BY: [facility] [id number] Prealbumin 18 mg/dL (Abnormal) Range: 20-40 :22 URINALYSIS, W/ MICRO (80924) Comments: PATIENT WAS FASTINGPERFORMED BY: [facility] [id number] Microscopic Examination See below: (Normal) Comments: Microscopic was indicated and was performed. Nitrite, Urine Negative (Normal) Urobilinogen,Semi-Qn 0.2 mg/dL (Normal) Range: 0.0-1.9 Bilirubin Negative (Normal) Occult Blood Negative (Normal) Ketones Negative (Normal) Glucose Negative (Normal) Protein Negative (Normal) WBC Esterase Trace (Abnormal) Appearance Clear (Normal) Urine-Color Yellow (Normal) pH 6.5 (Normal) Range: 5.0-7.5 Specific Cherry 1.013 (Normal) Range: 1.005-1.030 :22 METABOLIC PANEL, COMPREHENSIVE Comments: PATIENT WAS FASTINGPERFORMED BY: [facility] [id number] (61286) ALT (SGPT) 7 [iU]/L (Normal) Range: 0-32 [...] 88 mg/dL (Normal) Range: 65-99 :07 PREALBUMIN (16221) Comments: Forward to Dr Yvonne Madsen at fax phone at [address] [place] [address]. [place] [address]; PATIENT NOT FASTINGPERFORMED BY: [employer] [facility] Cxptlx3959 [facility] [id number] Prealbumin 19 mg/dL (Abnormal) Range: 20-40 :07 CBC with manual diff (50943) Comments: Forward to Dr Yvonne Madsen at fax phone at [address] [place] [address]. [place] [address]; PATIENT NOT FASTINGPERFORMED BY: Uniteam CommunicationUniversity HospitalMgohtm6904 [facility] [id number] Information: [id number] Immature Grans (Abs) 0.0 {x10E3/uL} (Normal) Range: [...] 3.77-5.28 WBC 7.7 {x10E3/uL} (Normal) Range: 3.4-10.8 7-Kus-219098:09 URINE ERICA CULTURE-IDENTIFICATN Comments: PATIENT NOT FASTINGPERFORMED BY: LabCoUniversity HospitalLryxyt2156 [facility] [id number] Information: [id number] (00935) Result 1 MUG (Normal) Comments: Mixed urogenital flora10,000-25,000 colony forming units per mL Urine Final report (Normal) Culture,Comprehensive :48 Urinalysis, Office (72373) UA - LEUKOCYTE ESTERASE Small (Normal) UA - NITRITE Negative (Normal) URINE UROBILINGN JANETH TIMED Normal mg/dL (Normal) UA - PROTEIN Negative mg/dL (Normal) UA - PH 7 (Normal) UA - BLOOD Negative (Normal) UA - SPECIFIC GRAVITY 1.020 (Normal) UA - KETONES Negative mg/dL (Normal) UA - BILIRUBIN Negative (Normal) UA - GLUCOSE Negative (Normal) 71-Rje-509469:07 URINE ERICA CULTURE-IDENTIFICATN Comments: PATIENT NOT FASTINGPERFORMED BY: Uniteam CommunicationUniversity HospitalEoywfk2086 [facility] [id number] Information: SRC: URINE [id number] (30889) Antimicrobial MIHEAD (Normal) Comments: S = Susceptible; [...] pneumoniae (Normal) Urine Final report Culture,Comprehensive (Normal) 63-Ejk-59071:33 Urinalysis, Office (16745) UA - BILIRUBIN Negative (Normal) UA - BLOOD Non Hemolyzed Trace (Normal) UA - GLUCOSE Negative (Normal) UA - KETONES Negative mg/dL (Normal) UA - LEUKOCYTE ESTERASE Negative (Normal) UA - NITRITE Negative (Normal) UA - PH 7.0 (Normal) UA - PROTEIN Negative mg/dL (Normal) UA - SPECIFIC GRAVITY 1.015 (Normal) URINE UROBILINGN JANETH TIMED Normal mg/dL (Normal) 2-Orf-548979:01 URINE ERICA CULTURE-IDENTIFICATN Comments: PATIENT NOT FASTINGPERFORMED BY: PawngoMclaren Oakland6370 [facility] [id number] Information: [id number] (99055) Result 1 MUG (Normal) Comments: Mixed urogenital flora50,000-100,000 colony forming units per mL Urine Final report (Normal) Culture,Comprehensive 08-Nov-20129:00 Urinalysis, Office (89129) UA - BILIRUBIN Negative (Normal) UA - BLOOD Negative (Normal) UA - GLUCOSE Negative (Normal) UA - KETONES Negative mg/dL (Normal) UA - LEUKOCYTE ESTERASE Moderate (Normal) UA - NITRITE Negative (Normal) UA - PH 6.0 (Normal) UA - PROTEIN Negative mg/dL (Normal) UA - SPECIFIC GRAVITY 1.020 (Normal) URINE UROBILINGN JANETH TIMED Normal mg/dL (Normal) 36-Gva-693174:41 Thin prep Pap Comments: Source.............Cervical;EndocervicalNo. of containers..01 CYTYC Thin Prep VialPATIENT NOT FASTINGPERFORMED BY: LabCo[address] [id number] Information: [id number] (72215) Note: PAPSMR (Normal) Comments: The Pap smear [...] gnant neopla sm of the cervixKailey Christensen Person Investigator (ASCP) 99-Cbu-471869:00 BILAT SCRN DIGITAL & CAD Radiology Report [...] suspiciousabnormality. Signed:Samuel Rhodes M.D.Oct at 1:41:11 PM [id number] Signed GP/GP If you are the referring physician and would like to consult with theradiologist who provided this interpretation, please contact Danie Goyal at [phone]. If this radiologist is unavailable, youwill be directed to another radiologist to assist. If you are a patient with a question regarding this report, pleasecont actyour referring physician directly. Professional Interpretation Provided By: [employer] Return, Phone , These documents contain legally protected [...] or destructionofthese documents. Dictated on 10/28/12 1341 Laura Waller MDranscribed on 10/28/12 1345 by ITS IMPORTSign by Samuel Rhodes MD on 10/28/12 1346 Sign by: Samuel Rhodes MD 0-Pji-667910:22 URINE ERICA CULTURE (JANETH Comments: PATIENT NOT FASTINGPERFORMED BY: [facility] Tpxrao3735 [facility] [id number] Information: SRC:UR [id number] COL COUNT) (23489) Result 1 BETAGB (Normal) Comments: Beta hemolytic [...] (CLSI 2011) Urine Final report (Normal) Culture,Comprehensive 14-Oct-20128:17 Urinalysis, Office (14818) UA - BILIRUBIN Negative (Normal) UA - BLOOD Non Hemolyzed Trace (Normal) UA - GLUCOSE Negative (Normal) UA - KETONES Negative mg/dL (Normal) UA - LEUKOCYTE ESTERASE Small (Normal) UA - NITRITE Negative (Normal) UA - PH 6.0 (Normal) Comments: 5.5 UA - PROTEIN Negative mg/dL (Normal) UA - SPECIFIC GRAVITY 1.025 (Normal) URINE UROBILINGN JANETH TIMED Normal mg/dL (Normal) 81-Bac-34129:12 URINE ERICA CULTURE-JANETH COL Comments: PATIENT NOT FASTINGPERFORMED BY: [facility] Zskqwl2592 [facility] [id number] Information: SRC:UR [id number] COUNT (90699) Result 1 MUG (Normal) Comments: Mixed urogenital floraGreater than 100,000 colony forming units per mL Urine Culture,Comprehensive Final report (Normal) 80-Vxa-38952:10 Urinalysis, Office (66695) UA - BILIRUBIN Negative (Normal) UA - BLOOD Negative (Normal) UA - GLUCOSE Negative (Normal) UA - KETONES Negative mg/dL (Normal) UA - LEUKOCYTE ESTERASE Small (Normal) UA - NITRITE Negative (Normal) UA - PH 7.0 (Normal) UA - PROTEIN Negative mg/dL (Normal) UA - SPECIFIC GRAVITY 1.015 (Normal) URINE UROBILINGN JANETH TIMED Normal mg/dL (Normal) 09-Dfl-884991:10 URINE ERICA CULTURE (JANETH Comments: PATIENT NOT FASTINGPERFORMED BY: [facility] Znzjkl8090 [facility] [id number] Information: SRC: [id number] COL COUNT) (14779) Result 1 BETAGB (Normal) Comments: Beta hemolytic [...] (CLSI 2011) Urine Final report (Normal) Culture,Comprehensive 80-Sut-19242:48 Urinalysis, Office (87714) UA - BILIRUBIN Negative (Normal) UA - BLOOD Hemolyzed Small (Normal) UA - GLUCOSE Negative (Normal) UA - KETONES Small mg/dL (Normal) UA - LEUKOCYTE ESTERASE Large (Normal) UA - NITRITE Negative (Normal) UA - PH 6.0 (Normal) UA - PROTEIN Negative mg/dL (Normal) UA - SPECIFIC GRAVITY 1.025 (Normal) URINE UROBILINGN JANETH TIMED Normal mg/dL (Normal) 1-Wbe-540769:58 URINE ERICA CULTURE-IDENTIFICATN Comments: PATIENT NOT FASTINGPERFORMED BY: [facility] Gwbxgg7372 [facility] [id number] Information: [id number] (97827) Result 2 BETAGB (Normal) Comments: Beta hemolytic [...] 800 Colonies/mL (Normal) Urine Final report (Normal) Culture,Comprehjerold phelps [facility] 3-Stf-789521:46 Urinalysis, Office (15572) UA - BILIRUBIN Negative (Normal) UA - BLOOD Non Hemolyzed Trace (Normal) UA - GLUCOSE Negative (Normal) UA - KETONES Negative mg/dL (Normal) UA - LEUKOCYTE ESTERASE Small (Normal) UA - NITRITE Negative (Normal) UA - PH 7.0 (Normal) UA - PROTEIN Negative mg/dL (Normal) UA - SPECIFIC GRAVITY 1.015 (Normal) URINE UROBILINGN JANETH TIMED Normal mg/dL (Normal) 19-Hpx-295308:00 URINE ERICA CULTURE-JANETH COL Comments: PATIENT NOT FASTINGPERFORMED BY: [facility] Dcafvj2356 [facility] [id number] Information: SRC:UR [id number] COUNT (99554) Result 1 MUG (Normal) Comments: Mixed urogenital flora10,000-25,000 colony forming units per mL Urine Final report (Normal) Culture,Comprehensive 91-Dfj-529227:35 Urinalysis, Office (03528) UA - BILIRUBIN Negative (Normal) UA - BLOOD Negative (Normal) UA - GLUCOSE Negative (Normal) UA - KETONES Negative mg/dL (Normal) UA - LEUKOCYTE ESTERASE Trace (Normal) UA - NITRITE Negative (Normal) UA - PH 7.0 (Normal) UA - PROTEIN Negative mg/dL (Normal) UA - SPECIFIC GRAVITY 1.015 (Normal) URINE UROBILINGN JANETH TIMED 2 mg/dL (Normal) :38 CALCIFIDIOL (74190) VIT D 25 Comments: PATIENT WAS FASTINGPERFORMED BY: [employer] MeetDoctorin [place] [id number] Vitamin D, 25-Hydroxy 37.7 ng/mL (Normal) Range: 30.0-100.0 Comments: Vitamin D deficiency has been defined by the [place] of[place] and an Endocrine Society practice guideline as alevel of serum 25-OH vitamin D less than 20 ng/mL (1,2).The Endocrine Society went on to further define vitamin Dinsufficiency as a level between 21 and 29 ng/mL (2).1. IOM ([place] of [employer]). 2010. Dietary reference intakes for calcium and D. [place]: The National Academies Press.2. Aaron MF, Curry [place], Viet ALLISON, et al. Evaluation, treatment, and prevention of vitamin D deficiency: an Endocrine Society clinical practice guideline. JCEM. 2010; 96(7):1911-30. :38 Lipid Panel (41280) Comments: PATIENT WAS FASTINGPERFORMED BY: [employer]6370 [facility] [id number] LDL/HDL Ratio 1.1 {ratio_units} (Normal) Range: 0.0-3.2 LDL Cholesterol Calc 81 mg/dL (Normal) Range: 0-99 VLDL Cholesterol Donovan 22 mg/dL (Normal) Range: 5-40 HDL Cholesterol 76 mg/dL (Normal) Comments: According to ATP-III Guidelines, HDL-C >59 mg/dL is considered anegative risk factor for CHD. Triglycerides 111 mg/dL (Normal) Range: 0-149 Cholesterol, Total 179 mg/dL (Normal) Range: 100-199 :38 CBC (Auto) (43529) Comments: PATIENT WAS FASTINGPERFORMED BY: [employer] LabAffectvrp Qwbaje9008 [facility] [id number] Platelets 207 {x10E3/uL} (Normal) Range: 155-379 Comments: [...] 3.4-10.8 Comments: Please note reference interval change 29-Fxg-58230:38 Metabolic Panel, Comments: PATIENT WAS FASTINGPERFORMED BY: LabCoUniversity HospitalSmcmid3101 [facility] [id number] Information: [id number] Comprehensive (78919) ALT (SGPT) 7 [iU]/L (Normal) Range: 0-32 [...] Glucose, Serum 86 mg/dL (Normal) Range: 65-99 06-Xoo-22044:09 Urinalysis, Office (42426) UA - BILIRUBIN Negative (Normal) UA - BLOOD Negative (Normal) UA - GLUCOSE Negative (Normal) UA - KETONES Negative mg/dL (Normal) UA - LEUKOCYTE ESTERASE Trace (Normal) UA - NITRITE Negative (Normal) UA - PH 6.0 (Normal) UA - PROTEIN Negative mg/dL (Normal) UA - SPECIFIC GRAVITY 1.020 (Normal) URINE UROBILINGN JANETH TIMED Normal mg/dL (Normal) :09 DEXA BONE DENSITY STUDY (HP) Radiology Report [...] Rhodes M.D.November 01, 2011 at 10:15:09 AM [id number] Signed GP/GP If you are the referring phys ician and would like to consult with theradiologist who provided this interpretation, please contact Danie Goyal at [phone]. If this radiologist is unavailable, youwill be directed to a [facility] radiologist to assist. If you are a patient with a question regarding this report, pleasecontactyour referring physician directly. Professional Interpretation Provided By: [employer]arding Return, Phone [phone], These documents contain legally protected and confidential [...] the return or destructionofthese documents. Dictated on 11/01/11 0825 by Carmelo GARRETT,Lauraranscribed on 11/01/11 1021 by ITS IMPORTSign by Carmelo GARRETT,Samuel on 30/01 1022 Sign by: Samuel Rhodes MD 87-Lkz-92420:07 CBC with manual diff Comments: PATIENT WAS FASTINGPERFORMED BY: LabCoUniversity HospitalWedxhl4932 [facility] [id number] Information: [id number] ([id number]) Immature Grans (Abs) 0.0 {x10E3/uL} (Normal) Range: [...] 3.77-5.28 WBC 6.2 {x10E3/uL} (Normal) Range: 4.0-10.5 :07 CALCIFIDIOL (69000) VIT D 25 Comments: PATIENT WAS FASTINGPERFORMED BY: [facility]6370 [facility] [id number] Vitamin D, 25-Hydroxy 47.5 ng/mL (Normal) Range: 30.0-100.0 Comments: Vitamin D deficiency has been defined by the [place] and an Endocrine Society practice guideline as alevel of serum 25-OH vitamin D less than 20 ng/mL (1,2).The Endocrine Society went on to further define vitamin Dinsufficiency as a level between 21 and 29 ng/mL (2).1. IOM ([place] [employer]). 2010. Dietary reference intakes for calcium and D. [place]: The National Academies Press.2. Aaron MF, Curry EVANS, Viet ALLISON, et al. Evaluation, treatment, and prevention of vitamin D deficiency: an Endocrine Society clinical practice guideline. JCEM. 2010; 96(7):1911-30. :07 Metabolic Panel, Comprehensive Comments: PATIENT WAS FASTINGPERFORMED BY: [facility]6370 [facility] [id number] (02021) ALT (SGPT) 7 [iU]/L (Normal) Range: 0-40 [...] Glucose, Serum 87 mg/dL (Normal) Range: 65-99 97-Vhh-10301:07 Lipid Panel (20817) Comments: PATIENT WAS FASTINGPERFORMED BY: [facility]CoUniversity HospitalEtasrc7022 [facility] [id number] LDL/HDL Ratio 1.2 {ratio_units} (Normal) Range: 0.0-3.2 [...] 100-199 Comments: Please note reference interval change 92-Vwc-528131:46 BILAT SCRN DIGITAL & CAD Radiology Report See Note (Normal) Comments: MAMMOGRAPHY - BILATERAL SCREENING REASON FOR EXAM: Female, 71 years old. Routine annual screeningexamination. PERTINENT HISTORY: Sister with breast cancer. TECHNIQUE: Digital examinat ion. Mediol ateral oblique (MLO) andcraniocaudad (CC) views of both breasts were obtained. CAD: CAD wasperformed on this study. COMPARISON: Comparison is made with prior examinations dated July and [facility] 2009. FINDINGS:The breast composition is heterogeneously dense. [...] Rhodes M.D.October 26, 2011 at 11:14:07 AM [id number] Signed GP/GP If you are the referring physician and would like to consult with ther adiologist who provided this interpretation, please contact Danie Goyal at [phone]. If this radiologist is unavailable, youwill be directed to another radiologist to assist. If you are a patient with a question regarding this report, pleasecontactyour referring physician directly. Professional Interpretation Provided By: [employer], Phone , These documen ts contain legally [...] 10/26/11 1121 Sign by: Samuel Rhodes MD 89-Aje-098635:17 Thin prep Pap Comments: Source.............Cervical;EndocervicalNo. of containers..01 CYTYC Thin Prep VialPATIENT NOT FASTINGPERFORMED BY: [facility] [place] [id number] Information: [id number] ([id number]) Note: PAPSMR (Normal) Comments: The Pap smear [...] for deepika gnant neopla sm of the cervixElizabeth July Joe, Person Investigator (ASCP) 09-Hgg-796467:04 BILAT DIA DIGITAL & CAD Radiology Report See Note [...] on 08/03/10 1403 by ITS IMPORTSign by Smauel Rhodes MD on 08/03/10 1404 Sign by: Samuel Rhodes MD 87-Eea-14956:52 UNILAT RT DIAG DIGITAL & CAD Radiology [...] Category 3: Probably Benign Finding - Initial Bjvci-YvmugmwnIrnvhc-yf Suggested. A letter regarding these results will be sent tothepatient by the facility. Approximately 10% of breast cancers are not detected by mammography. Anormal mammogram should not delay biopsy of a clinically suspiciousabnormality. Dictated on 01/27/10 1006 by JANNY SALEHTranscribed on 01/31/10 2231 by ITS IMPORTSign by JANNY SALEH on 01/31/10 2232 Sign by: JANNY SALEH 79-Tdr-99414:18 DEXA BONE DENSITY STUDY (HP) Radiology Report See Note (Normal) Comments: Exam Number: [id number] CLINICAL:The patient is a 61 day old woman who is postmenopausal with pastuse of hormone replacement therapy. EXAMINATION:DUAL ENERGY X-RAY ABSORPTIOMETRY / DEXA. TECH NIQUE:Bone D ensity Measurements (BMD) of lumbar spine and bilateral hipswere obtained using a mobiDEOS scanner.. COMPARISON:2002 at 2006 FINDINGS: Lumbar Spine (L1-L4): g/cm2 [...] Foundation [email or web address] Reported By: JANNY SALEH M.D. 42-Ljo-639855:00 Thin prep Pap Comments: Source.............Cervical;EndocervicalNo. of containers..01 CYTYC Thin Prep VialPATIENT NOT FASTINGPERFORMED BY: [facility] [address] [id number] Information: [id number] ([id number]) Note: PAPSMR (Normal) Comments: The Pap smear [...] MALIGNANCY.THIS SPECIMEN WAS RESCREENED PART OF OUR NURSE GENERAL DUTY PROGRAM.Satisfactory for evaluation. Endocervical and/or squamous metaplasticc ells (endoce rvical component) are present.V76.2 ; Screening for malignant neoplasm of the cervixKlaudia Nelson CytotechnologistNatalia Cutler, Supervisory Person Investigator (ASCP) 71-Wlj-34336:29 Metabolic Panel, Comments: PATIENT WAS FASTINGPERFORMED BY: [facility] Uzdsri8348 [facility] [id number] Information: [id number] Comprehensive (47537) ALT (SGPT) 10 [iU]/L (Normal) Range: 0-40 [...] Glucose, Serum 87 mg/dL (Normal) Range: 65-99 48-Soa-97132:29 CALCIFIDIOL (74102) VIT D 25 Comments: PATIENT WAS FASTINGPERFORMED BY: [employer]6370 [facility] [id number] Vitamin D, 25-Hydroxy 25.2 ng/mL (Abnormal) Range: 32.0-100.0 Comments: Recent studies consider the lower limit of 32.0 ng/mL to be athreshold for optimal health.Alex MCKOY. J Nutr. 2004;135(2):317-22. :29 Lipid Panel (69584) Comments: PATIENT WAS FASTINGPERFORMED BY: [facility] [id number] LDL Cholesterol Calc 104 mg/dL (Abnormal) Range: 0-99 LDL/HDL Ratio 1.4 {ratio_units} (Normal) Range: 0.0-3.2 HDL Cholesterol 73 mg/dL (Normal) Comments: According to ATP-III Guidelines, HDL-C >59 mg/dL is considered anegative risk factor for CHD. Triglycerides 137 mg/dL (Normal) Range: 0-149 VLDL Cholesterol Donovan 27 mg/dL (Normal) Range: 5-40 Cholesterol, Total 204 mg/dL (Abnormal) Range: 100-199 93-Oxz-38505:41 CBC With Differential/Platelet Comments: PATIENT WAS FASTINGPERFORMED BY: LabCoUniversity HospitalLuytue8623 [facility] [id number] Baso (Absolute) 0.0 {x10E3/uL} (Normal) Range: 0.0-0.2 [...] Panel (14) Comments: PATIENT WAS FASTINGPERFORMED BY: [facility] Apanyd1948 [facility] [id number] A/G Ratio 1.1 (Normal) Range: 1.1-2.5 Albumin, [...] Serum 85 mg/dL (Normal) Range: 65-99 If -Jamaican >60 mL/min (Normal) Range: 60-128 Comments: Note: [...] Sodium, Serum 139 mmol/L (Normal) Range: 135-145 :41 Lipid Panel With LDL/HDL Comments: PATIENT WAS FASTINGPERFORMED BY: Uniteam CommunicationUniversity HospitalZstxks7492 [facility] [id number] Ratio Cholesterol, Total 210 mg/dL (Abnormal) Range: [...] Microscopic Examination Comments: PATIENT WAS FASTINGPERFORMED BY: LabAffectvUniversity HospitalHjkwdg8297 [facility] [id number] Bacteria None seen (Normal) Crystal Type Amorphous Sediment (Normal) Crystals Present (Abnormal) Epithelial Cells (non renal) >10 {/hpf} (Abnormal) Range: 0 - 10 Mucus Threads Present (Abnormal) RBC 0-3 {/hpf} (Normal) Range: 0 - 3 WBC 11-30 {/hpf} (Abnormal) Range: 0 - 5 :41 Urinalysis, Routine Comments: PATIENT WAS FASTINGPERFORMED BY: LabCoUniversity HospitalUnvbnk9156 [facility] [id number] Appearance Clear (Normal) Bilirubin Negative (Normal) Glucose Negative (Normal) Ketones Negative (Normal) Microscopic Examination See below: (Normal) Nitrite, Urine Negative (Normal) Occult Blood Negative (Normal) pH 7.5 (Normal) Range: 5.0-7.5 Protein Negative (Normal) Specific Cherry 1.018 (Normal) Range: 1.005-1.030 Urine-Color Yellow (Normal) Urobilinogen,Semi-Qn 0.2 mg/dL (Normal) Range: 0.0-1.9 WBC Esterase 3+ (Abnormal) :13 KNEE,4 OR MORE VIEWS Radiology Report See Note (Normal) Comments: Exam Number: [id number] LEFT KNEE - VIEWS STATEMENTPain. PRIOR STUDIESNone. No acute fracture or joint dislocation is shown. There is no jointeffusion. No suspicious bone lesions or pathologic calcific ations. There is mild narrowing over the medial joint compartment. IMPRESSIONMild narrowing of the medial joint compartment, otherwise negativeleft knee. Reported By: GRACE CORDERO M.D. 3-Cgw-248968:55 Pap Lb, rfx HPV Comments: Source.............Cervical;EndocervicalNo. of containers..01 CYTYC Thin Prep VialPERFORMED BY: [facility] [address] [place] [id number] all pth . . (Normal) DIAGNOSIS: SPRCS (Normal) Comments: NEGATIVE FOR INTRAEPITHELIAL LESION AND MALIGNANCY.Satisfactory for evaluation. Endocervical and/or squamous metaplasticcells (endocervical component) are present.V72.31 ; Routine gynecolog ical examina tiSandra Rasmussen Person Investigator (ASCP) Note: PAPSMR (Normal) Comments: The Pap [...] Report See Note (Normal) Comments: Exam Number: [id number] BONE DENSITOMETRY TECHNIQUE Bone densitometry of the [...] density is measured at 6.2% greater than cw1717. The T-value of the left femoral neck is -2.1 which is in the range ofosteopenia. T-value of the tot al left hip is -0.6 which is normal. Bone mineral density of the total left hip is measured at 0.8% greaterthan in 2002. IMPRESSIONThere is osteopenia of the lumbar spine. [...] cervix Planned Observations CBC WITH MANUAL DIFF (03920)Indication: Impaired fasting glucose On: 16-Ntp-105645:39 Request Metabolic Panel, Comprehensive (86127)Indication: Hyperkalemia On: 43-Shb-455800:32 Request Comments: re check in 4 weeks POTASSIUM URINE (45211)Indication: Hyperkalemia On: 27-Sin-403800:43 Request Comments: re check in 4 weeks CBC with auto diff (19271)Indication: Abdominal pain On: 97-Ymf-46128:03 Request Metabolic Panel, Comprehensive (47214)Indication: Abdominal pain On: 30-Luo-85221:03 Request Lipase (05344)Indication: Abdominal pain On: 12-Jun-20147:28 Request Amylase (90452)Indication: Abdominal pain On: :28 Request CBC (Auto) (80283)Indication: Abdominal pain On: :27 Request Metabolic Panel, Comprehensive (86915)Indication: Abdominal pain On: :27 Request URINE ERICA CULTURE-JANETH COL COUNT (61216)Indication: UTI (lower urinary tract infection) On: :50 Request URINE ERICA CULTURE-JANETH COL COUNT (91611)Indication: UTI (lower urinary tract infection) On: :40 Request URINE ERICA CULTURE-IDENTIFICATN (81303)Indication: Urinary frequency On: :47 Request Comments: recheck after finish antibiotic URINALYSIS (11402)Indication: Urinary frequency On: :47 Request Thin prep Pap (81715)Indication: Screening for malignant neoplasm of cervix On: :20 Request URINALYSIS (04205)Indication: Screening for malignant neoplasm of cervix On: :19 Request URINALYSIS (49982)Indication: Screening for malignant neoplasm of cervix On: :19 Request CBC (Auto) (71965)Indication: Screening for malignant neoplasm of cervix On: :18 Request Metabolic Panel, Comprehensive (41682)Indication: Screening for malignant neoplasm of cervix On: :18 Request Lipid Panel (03094)Indication: Screening for malignant neoplasm of cervix On: :18 Request Planned Encounters Medical; [facility] 6 Month Fu - On: 23-May-2018 8:45 [facility] Jason GARRETT, Raine Gross MD Planned Procedures Bone Density StudyBy: Jason GARRETT, On: 08-Nov-2017 Intent Raine Gross MD Comments: schedule after 11-15-17 MAMMOGRAM BREAST BILATERAL SCREENING On: 08-Nov-2017 Intent DIGITAL (64000)By: aRine Gomez MD Comments: schedule after 11-16-17 M Raine Gomez MD INJECTION, PROLIA (J0897)By: Visit, On: 01-Aug-2017 Intent Nurse Comments: pt own med lot [id number] exp 9/20 given sq lt arm Flu Vaccine (Quadrivalent) 12161Ad: On: 23-Nov-2016 Intent Raine Gomez MD, MD, Dana Comments: Lot #[id number]-07/23/17ite-L dltd, IMDose prefilled syringegiven by:MLong, VALENTENVIS and ABN signed M Ear Irrigation (83645)By: Jason On: 01-Sep-2016 Intent Raine GARRETT MD, Dana M Comments: Ear Irrigation performed on:bilateralAmount/color removed cerumen: large amountOUtcome:clear and tolerated Wax CurettesBy: Raine Gomez MD On: 01-Sep-2016 Intent Raine Gomez MD SCREENING DIGITAL TOMOSYNTHESIS OF On: 01-Sep-2016 Intent BREAST (37981)By: Raine Gomez MD Comments: 10-22 Raine Gomez MD INJECTION, PROLIA (J0897)By: Visit, On: 01-Aug-2016 Intent Nurse Comments: [id number]/prefilled syringeR arm, IMML Long, CELLULAR EQUIPMENT INSTALLER Flu Vaccine (Quadrivalent) 03257Xj: On: 20-Oct-2015 Intent Raine Gomez MD, MD, Dana Comments: FLUlot: [id number]:08/04/16site:Lt deltoidroute:IMdose:.5mlDEMICK, MA M Wax CurettesBy: Raine Gomez MD On: 19-Aug-2015 Intent Raine Gomez MD Ear Irrigation (58876)By: Jason On: 19-Aug-2015 Raine Frances MD, MD, Dana M DEXA SCAN AXIAL SKELETON (20768)By: On: 19-Aug-2015 Intent Raine Gomez MD, MD, Dana Comments: after - M MAMMOGRAM, SCREENING, BOTH BREAST On: 19-Aug-2015 Intent (07277)By: Raine Gomez MD Comments: after 9-16 due Raine Gomez MD INJECTION, PROLIA (J0897)By: Jason On: 12-Aug-2015 Intent Raine GARRETT MD, Dana M Comments: prolialot:[id number]:ite:lt subqroute:subqdose:60mgD.KP Tian MAMMOGRAM, SCREENING, BOTH BREAST On: 28-May-2015 Intent (95137)By: Raine Gomez MD, MD, Dana M DEXA SCAN AXIAL SKELETON (37402)By: On: 28-May-2015 Intent Raine Gomez MD, MD, Dana M INJECTION, PROLIA (J0897)By: Jason On: 01-Feb-2015 Intent Raine GARRETT MD, Dana M Comments: lot: [id number]: ite/route: L arm/SQamt: prefilled syringeVIS signed when applicableTO Anders ADMINISTRATION OF INFLUENZA VIRUS On: 02-Nov-2014 Intent VACCINE (G0008)By: Raine Gomez MD, MD, Dana M Toradol Injection, 30 mg (J1885)By: On: 03-Sep-2014 Intent Raine Gomez MD, MD, Dana Comments: Lot:[id number]:04/05/2016Dose:30mgRoute:imSite:r hipGiven By:JALEX Dunlap Phenergan Injection, up to 50 mg On: 03-Sep-2014 Intent (J2550)By: Raine Gomez MD Comments: 25 mg IV Raine Gomez MD INFUSION, NORMAL SALINE SOLUTION , On: 03-Sep-2014 Intent 1000 CC (Special Coverage Comments: IV Therapy mejtbiiar87V, 1 inchSite: L acTolerated: moderately wellno redness or swelling, no s/s infiltrationER, LPNPhenergan push - DB, [id number] Instructions Apply. See MCM: 2049) (J7030)By: Raine Gomez MD, MD, Dana M Nuclear Medicine - HIDA w/CPKBy: On: 03-Sep-2014 Intent Raine Gomez MD, MD, Dana M INJECTION, PROLIA (J0897)By: Alyssa, On: 30-Jul-2014 Intent Aura Comments: lot:[id number]:10.17route:SQdose:60mgSite:L armgiven by: Michelle Shah CMA Ultrasound - PelvisBy: Jason GARRETT, On: 24-Jun-[address] - Abdomen & Pelvis (IV Contrast On: 12-Jun-2014 Intent Needed)By: Raine Gomez MD, MD, Dana M Ultrasound - GallbladderBy: Ciesa On: 08-Jun-2014 Intent LACING CUTTER, Shira INJECTION, PROLIA (J0897)By: Anjum On: 03-Feb-2014 Intent Yesika DE PAZ Comments: lot [id number] 6.17left BALDEV Mckeon ADMINISTRATION OF INFLUENZA VIRUS On: 07-Nov-2013 Intent VACCINE (G0008)By: Visit, Nurse Comments: Lot #[id number]-L dltd, IMDose prefilled syringegiven by:BALDEV ToabrVIS and ABN signed FLU VAC, SPLIT, >3 YEARS, INTRAMUSC On: 07-Nov-2013 Intent (94760)By: Visit, Nurse Bone Density StudyBy: Jason GARRETT, On: 30-Oct-2013 Intent Raine Gross MD BILATERAL MAMMOGRAMS (98821)By: On: 30-Oct-2013 Intent Raine Gomez MD, MD, Dana M Radiology - ChestBy: Jason GARRETT, On: 27-Oct-2013 Intent Raine Gross MD EKG (08043)By: Raine Gomez MD On: 27-Oct-2013 Intent Raine [...] Intent ()By: Raine Gomez MD Comments: Lot #:[id number] date:mount given:2ml Route: intra articular Site given:left knee Given By: Raine Honeycutt MD DRAIN/INJECT MAJOR JOINT OR BURSA On: 13-May-2013 Intent (26339)By: Raine Gomez MD, MD, Raine Dunlap Kenalog Injection, 10 mgm On: 03-Feb-2013 Intent (J3301)By: Raine Gomez MD Comments: kenalog 1 continue current treatment plan llot # [id number] 06-17, bupivacaine lot#[id number] Raine Gomez MD Kenalog Injection, 10 mgm On: 03-Feb-2013 Intent (J3301)By: Raine Gomez MD, MD, Raine Dunlap Kenalog Injection, 10 mgm On: 03-Feb-2013 Intent (J3301)By: Raine Gomez MD, MD, Dana M Kenalog Injection, 10 mgm On: 03-Feb-2013 Intent (J3301)By: Raine Gomez MD, MD, Dana M ADMINISTRATION OF INFLUENZA VIRUS On: 28-Oct-2012 Intent VACCINE (G0008)By: Lula Flores FLU VAC, SPLIT, >3 YEARS, INTRAMUSC On: 28-Oct-2012 Intent (13367)By: Lula Flores Pap Smear, Medicare (Q0091)By: On: 28-Oct-2012 Intent Raine Gomez MD, MD, Dana M Pelvic and Breast, Medicare On: 28-Oct-2012 Intent (G0101)By: Raine Gomez MD, MD, Dana M MAMMOGRAM, SCREENING, BOTH BREASTS On: 28-Oct-2012 Intent (07113)By: Raine Gomez MD, MD, Dana M Kenalog Injection, 10 mgm On: 17-Oct-2012 Intent (J3301)By: Raine Gomez MD, MD, Raine Dunlap Kenalog Injection, 10 mgm On: 17-Oct-2012 Intent (J3301)By: Raine Gomez MD, MD, Dana M Kenalog Injection, 10 mgm On: 17-Oct-2012 Intent (J3301)By: Raine Gomez MD, MD, Dana M Kenalog Injection, 10 mgm On: 17-Oct-2012 Intent (J3301)By: Raine Gomez MD, MD, Dana M Breast Screening - BilateralBy: On: 09-Sep-2012 Intent Raine Gomez MD, MD, Dana M SPECIMEN HANDLING/TRANSPORT On: 23-Jul-2012 Intent (20496)By: Sonia Phillips LPN DXA, BONE DENSITY, AXIAL SKELETON On: 26-Oct-2011 Intent (69741)By: Raine Gomez MD, MD, Dana M MAMMOGRAM, SCREENING, BOTH BREASTS On: 26-Oct-2011 Intent (77538)By: Raine Gomez MD, MD, Dana M EKG (71053)By: Raine Gomez MD On: 26-Oct-2011 Intent Raine Gomez MD Comments: see scanned document of test done to see results reviewed today with patient FLU VAC, SPLIT, >3 YEARS, INTRAMUSC On: 26-Oct-2011 Intent (92169)By: DANIAL Mayorga Comments: Lot #:[id number] date:ount given:prefilled syringeRoute: IMSite given:Given by: VIS signed ADMINISTRATION OF INFLUENZA VIRUS On: 26-Oct-2011 Intent VACCINE (G0008)By: DANIAL Mayorga Breast Diagnostic - BilateralBy: On: 03-Apr-2011 Intent Raine Gomez MD, MD, Dana M Breast Diagnostic - BilateralBy: On: 04-Aug-2010 Intent Raine Gomez MD, MD, Dana M PNEUM VAC ADLT/IMUMNOSPR, SBC/INTRM On: 06-Jun-2010 Intent (22935)By: Raine Gomez MD Comments: lot # [id number]- 04/09/1188wueo-SJMKskrhs-EHckdt- 0.5 ML tolerated well Raine Gómez LPN, MD TD Injection , IM (84723)By: On: 06-Jun-2010 Intent Raine Gomez MD, MD, Dana Comments: lot # [id number]- 12/21/1180uqfg-CKVRxrbuj-EBqxzj- 0.5ML tolerated well Yasminraul BALDEV Dunlap ADMINISTRATION OF PNEUMOCOCCAL On: 06-Jun-2010 Intent VACCINE (G0009)By: Raine Gomez MD, MD, Dana M Inhaler Demonstration (42707)By: On: 30-May-2010 Intent Karla Tabares CNP Pulse Oximetry (56595)By: Rayshawn KUNZ, On: 30-May-2010 Intent Shira Aerosol Treatment (31236)By: Rayshawn On: 30-May-2010 Intent Karla KUNZ Eprescribed [...] MAMMOGRAM, SCREENING, BOTH BREASTS On: 22-Oct-2009 Intent (07552)By: Raine Gomez MD, MD, Dana M DXA, BONE DENSITY, AXIAL SKELETON On: 22-Oct-2009 Intent (54394)By: Raine Gomez MD, MD, Dana M FLU VAC, SPLIT, >3 YEARS, INTRAMUSC On: 05-Nov-2008 Intent (59820)By: Amanda Luong RN ADMINISTRATION OF INFLUENZA VIRUS On: 05-Nov-2008 Intent VACCINE (G0008)By: Amanda Luong RN ADMINISTRATION OF PNEUMOCOCCAL On: 12-Sep-2007 Intent VACCINE (G0009)By: Raine Gomez MD, MD, Dana M PNEUM VAC ADLT/IMUMNOSPR, SBC/INTRM On: 12-Sep-2007 Intent (87221)By: Raine Gomez MD, MD, Dana M ELECTROCARDIOGRAM, COMPLETE (ECG) On: 12-Sep-2007 Intent (58383)By: Raine Gomez MD, MD, Dana M Pulse Oximetry (26976)By: Jason On: 12-Sep-2007 Intent Raine GARRETT MD, Raine Dunlap Pap Smear, Medicare (Q0091)By: On: 12-Sep-2007 Intent Raine Gomez MD, MD, Raine Dunlap Pelvic and Breast, Medicare On: 12-Sep-2007 Intent (G0101)By: Raine Gomez MD, MD, Dana M MAMMOGRAM, SCREENING, BOTH BREASTS On: 12-Sep-2007 Intent (44030)By: Raine Gomez MD, MD, Dana M Bone Density StudyBy: Jason GARRETT, On: 26-Jun-2006 Intent Raine Gross MD MAMMOGRAM, SCREENING, BOTH BREASTS On: 26-Jun-2006 Intent (86554)By: Raine Gomez MD, MD, Dana M Pap Smear, Medicare (Q0091)By: On: 26-Jun-2006 Intent Riane Gomez MD, MD, Dana M Pelvic and Breast, Medicare On: 26-Jun-2006 Intent (G0101)By: Raine Gomez MD, MD, Dana M Planned Medications INFUSION, NORMAL SALINE SOLUTION , 1000 CC Ordered: 03-Sep-2014 Pending Raine Gomez MD, MD, Dana M INJECTION, KETOROLAC TROMETHAMINE, PER 15 MG Ordered: 03-Sep-2014 Pending Raine Gomez MD, MD, Dana M INJECTION, PROLIA Ordered: 03-Feb-2014 Pending Slarb CELLULAR EQUIPMENT INSTALLER, Yesika INJECTION, PROLIA Ordered: 12-Aug-2015 Pending Raine Gomez MDi MD, Raine Dunlap INJECTION, PROLIA Ordered: 01-Feb-2015 Pending Jason GARRETT, Raine Gomez MD, Raine Dunlap INJECTION, PROLIA Ordered: 30-Jul-2014 Pending Otoniel Shahison INJECTION, PROLIA Ordered: 01-Aug-2016 Pending Visit, Nurse INJECTION, PROLIA Ordered: 01-Aug-2017 Pending Visit, Nurse INJECTION, TRIAMCINOLONE ACETONIDE, NOT OTHERWISE SPECIFIED, 10 MG Ordered: 03-Feb-2013 Pending Jason GARRETT, Raine Gomez MD, Raine Dunlap INJECTION, TRIAMCINOLONE ACETONIDE, NOT OTHERWISE SPECIFIED, 10 MG Ordered: 03-Feb-2013 Pending Jason GARRETT, Raine Gomez MD, Raine Dunlap INJECTION, TRIAMCINOLONE ACETONIDE, NOT OTHERWISE SPECIFIED, 10 MG Ordered: 03-Feb-2013 Pending Jason GARRETT, Raine Gomez MD, Raine M INJECTION, TRIAMCINOLONE ACETONIDE, NOT OTHERWISE SPECIFIED, 10 MG Ordered: 17-Oct-2012 Pending Jason GARRETT, Raine Gomez MD, Raine Dunlap INJECTION, TRIAMCINOLONE ACETONIDE, NOT OTHERWISE SPECIFIED, 10 MG Ordered: 17-Oct-2012 Pending Jason GARRETT, Raine Gomez MD, Raine Dunlap INJECTION, TRIAMCINOLONE ACETONIDE, NOT OTHERWISE SPECIFIED, 10 MG Ordered: 17-Oct-2012 Pending Jason GARRETT, Raine Gomez MD, Raine Dunlap INJECTION, TRIAMCINOLONE ACETONIDE, NOT OTHERWISE SPECIFIED, 10 MG Ordered: 03-Feb-2013 Oraing Jason GARRETT, Raine Gomez MD, Raine Dunlap INJECTION, TRIAMCINOLONE ACETONIDE, NOT OTHERWISE SPECIFIED, 10 MG Ordered: 17-Oct-2012 José Miguel Gomez MD, Raine Gomez MD, Raine Dunlap Phenergan 50 MG/ML Injection Solution Ordered: 03-Sep-2014 Pending Raine Gomez MD, MD, Raine Dunlap Instructions Name Dates [...] Screening for malignant neoplasm of cervix Encounters Phone Encounter On: 29-Nov-2017 15:17 Encounter Diagnosis: Unspecified Diagnosis End: 29-Nov-2017 15:25 [facility] Office Visit On: 08-Nov-2017 7:52 Encounter Reason: [...] degree relative. Menstruation: Last menstrual period date: ('s)., [ADDITIONAL REASON] Annual Medicare Exam - Yes the patient did have (mms wisper 3/) a mini mental status exam done today. [...] preventative measures: PAP smear (year ago), mammography (2014) and colon oscopy (4 years ago). The patient does have durable power of commercial litigation attorney and living will. The patient has [...] The patient does have durable power of commercial litigation attorney and living will. The patient has [...] (10 End: 27-Oct-2013 11: Dr. Sonny Young, [place] [phone]) . There have been no problems with [...] cough little with some sputum. started in [place] with the allergies. not on antihsitamineEncounter Diagnosis: [...] The patient does have durable power of commercial litigation attorney and living will. The patient has [...] 02-Nov-2005 22:28 Payers MedicareTRANSAMERICA LIFE INSURANCE ADRIENNE MATA; augusto guarantor
--- OUTSIDE RECORDS SUMMARY | 2018-02-13 03:55 | XMS RPT_ITS | Continuity of Care Document ---
:1940 Author Organization [facility] Address [address] [place] [address] Phone Care Team Providers Name Role Phone [...] up to date amita check at [facility] for prevnar. dental and eye 2018, [...] Daily Oral Tablet 1 qd Active Comments:gummies ACTONEL, 150MG (Oral Tablet) 1 Tablet monthly [...] : 07-Aug-2016 Inactive Comments:03-30-16 called into [facility] in [place] [phone] UTI KETEK, 400MG (Oral Tablet) 2 (two) [...] : 12-Apr-2017 Inactive Comments:dispense one pack ZOSTAVAX, 11217RPI/0.65ML (Subcutaneous Solution Reconstituted) 1 For Solution once [...] days Quantity: 90 {Tablet} Refills: 1 Ordered:08-Jun-2014 Yesika Valero LPN Start : 30-Oct-2013 End : 08-Jun-2014 Discontinued HydroCHLOROthiazide 12.5 MG Oral Capsule 1 (one) Capsule qd for 0 days Quantity: 90 {Capsule} Refills: 3 Ordered:01-Sep-2016 Raine Gomez MD, MD, Dana M Start : 01-Sep-2016 End : 01-Sep-2016 Discontinued [...] (M23.92, 717.9) Comments: saw Dr. madsen and minerva jackson 12-21 Status: Inactive as of 14-Mar-2016 [...] 10-Sep-2014 Procedures Procedure Dates Details COLONOSCOPY, DIAGNOSTIC (76015) Completed Oct-2005 Comments: adenoma, 11-29-15 Last Pap Smear, Date Completed 25-Aug-2005 left knee replacement 11-24-13 Completed Date Value Details 01-Jan-2018 SCREENING MAMM (CAD), BILAT Result: Comments: See Note; NOTES: [facility] Imaging Services [address] [place] [address] SCREENING MAMM (CAD), BILAT MR#: [id number] Acct: [id number] Name: ARIEL MATA Rep #: [id number] : 1940 F 77 From: Samuel Rhodes MD PCP: Raine Gomez MD Status: REG CL Study: SCREENING MAMM (CAD), BILAT Date of Exam: 01/01/18 Exam# [id number] Ordering Dr: Raine Gomez MD MA MMOGRAPHY [...] delay biopsy of a clinically suspicious abnormality. [id number] Electronically Signed: Tyree Rhodes MD at 14:24 EST Tel [phone], Service support , CC: Raine Gomez MD Sales And Marketing Representative: Signed 16-Nov-2016 SCREENING MAMM (CAD), BILAT Result: Comments: See Note; NOTES: [facility] Imaging Services [address] [place] [address] SCREENING MAMM (CAD), BILAT MR#: [id number] Acct: [id number] Name: ARIEL MATA Rep #: [id number] : 1940 F 76 From: Samuel Rhodes MD PCP: Raine Gomez MD Status: REG CLI Study: SCREENING MAMM (CAD), BILAT Date of Exam: 11/16/16 Exam# [id number] Ordering Dr: Raine Gomez MD M AMMOGRAPHY [...] delay biopsy of a clinically suspicious abnormality. [id number] Electronically Signed: Samuel Rhodes MD at 13:03 EDT Tel [phone], Service support , CC: Raine Gomez MD Sales And Marketing Representative: Signed 16-Nov-2015 Bilat Scrn Digital AND CAD Result: Comments: See Note; NOTES: [facility] Imaging Services [address] [place] [address] Verdana 4d Bilat Scrn Digital AND CAD MR#: [id number] Acct: [id number] Name: ARIEL MATA Rep #: [id number] : 1940 F 75 From: Kiara Neves MD PCP: Raine Gomez MD Status: REG CLI Study: Bilat Scrn Digital AND CAD Date of Exam: 11/16/15 Exam# [id number] Ordering Dr: Raine Gomez MAMMOGRAPHY - BILATERAL [...] delay biopsy of a clinically suspicious abnormality. [id number] Electronically Signed: Kiara Neves MD at 15:55 EDT Tel , Service support , CC: Raine Gomez MD Sales And Marketing Representative: Signed 16-Nov-2015 Bilat Scrn Digital AND CAD Result: Comments: See Note; NOTES: [facility] Imaging Services [address] [place] [address] Verdana 4d Bilat Scrn Digital AND CAD MR#: [id number] Acct: [id number] Name: ARIEL MATA Rep #: [id number] : 1940 F 75 From: Kiara Neves MD PCP: Raine Gomez MD Status: REG CLI Study: Bilat Scrn Digital AND CAD Date of Exam: 11/16/15 Exam# [id number] Ordering Dr: Raine Gomez M D ADDENDUM by Kiara Neves MD on 11/18/15 at 1615 HPBI/Bilat Scrn Digital AND CAD 11/18/15 1622 Date cc: Raine Gomez MD * Signed ADDENDUM by Kiara Neves MD on 11/18/15 at 1615 ADDENDUM COMPARISON: Mammograms from November 03, 2014 and October 30 4. Electronically Signed: Kiara Neves MD at 16:15 EDT Tel , Service support [phone], 11/18/15 1610 Date cc: Raine Gomez MD * Meche [...] delay biopsy of a clinically suspicious abnormality. [id number] Electronically Signed: Kiara Neves MD at 15:55 EDT Tel , Service support , CC: Raine Gomez MD Sales And Marketing Representative: Signed 16-Nov-2015 Dexa Bone Density Study (HP) Result: Comments: See Note; NOTES: [facility] Imaging Services [address] [place] [address] Verdana 4d Dexa Bone Density Study (HP) MR#: [id number] Acct: [id number] Name: DANG MATA Rep #: [id number] : 1940 F 75 From: Samuel Rhodes MD PCP: Raine Gomez MD Status: REG CLI Study: Dexa Bone Density Study (HP) Date of Exam: 11/16/15 Exam# [id number] Ordering Dr: Raine Ruelas i, MD STUDY: [...] Samuel Rhodes MD at 12:41 EDT Tel [phone], Service support [phone], CC: Raine Gomez MD Sales And Marketing Representative: Signed 03-Nov-2014 Bilat Scrn Digital AND CAD Result: Comments: See Note; NOTES: [facility] Imaging Services [address] [place] [address] Breast Imaging Report MR#: [id number] Acct: [id number] Name: ARIEL MATA Rep #: [id number] : 1940 F 74 From: Samuel Rhodes MD PCP: Raine Gomez MD Status: REG CLI Study: Bilat Scrn Digital AND CAD Date of Exam: 11/03/14 Exam# [id number] Ordering Dr: Raine Gomez MD MAMMOGRAPHY - [...] Samuel Rhodes MD at 9:32 EDT Tel [phone], Service support [phone], CC: Raine Gomez MD Sales And Marketing Representative: Signed 02-Nov-2014 FLU VAC, SPLIT, >3 YEARS, INTRAMUSC (82851) Comments: Lot:[id number]:06/20Dose:0.5mLRoute:IMSite:L DltdGiven By:ENDY signed Result: Comments: FLU SHOTlot: [id number]: dose:.5 mlSite:LT armRoute: IMDSma Kathy 21-Sep-2014 Upper GI/w Small Bowel Result: Comments: See Note; NOTES: [facility] Imaging Services [address] [place] [address] Radiology Report MR#: [id number] Acct: [id number] Name: ARIEL MATA Rep #: [id number] : 1940 F 74 From: Samuel Rhodes MD PCP: Raine Gomez MD Status: REG CLI Study: Upper GI/w Small Bowel Date of Exam: 09/21/14 Exam# [id number] Ordering Dr: Ronna Colindres MD STUDY: AIR-CONTRAST UPPER GI SERIES AND SMALL BOWEL FOLLOW-THROUGH EXAMINATION. REASON FOR EXAM: Female, 74 years old. Abdominal pain and history of prior intestinal obstruction. FLUOROSCOPY TIME (if clark pplied): (1:20) minutes/seconds TECHNIQUE: A horizontal boring mill operator film was obtained. Following this, the patient ingested barium. Images of the esophagus, stomach and duodenum were obtained. Following this[facility]-through examination was performed. COMPARISON: None. FINDINGS: On the horizontal boring mill operator film, a moderate amount of fecal material [...] Samuel Rhodes MD at 10:53 EDT Tel [phone], Service support [phone], RAD/Upper GI/w Small Bowel IMPRESSION: Unremarkable examination . Electronically Signed: Samuel Rhodes MD at 10:53 EDT Tel [phone], Service support [phone], CC: Raine Gomez MD; Ronna Colindres MD Sales And Marketing Representative: Signed 11-Sep-2014 Emergency Department Summary Result: Comments: See Note; NOTES: [facility] Medical Records Department [address] [place] [address] Emergency Department Summary MR#: [id number] Acct: [id number] Name: ARIEL MATA Rep #: [id number] : 1940 74 From: Tomy Ashton DO PCP: Bonezzi MD,Raine Status: REG CLI DATE OF SERVICE: 09/03/2014 CHIEF COMPLAINT: Abdominal pain. HISTORY OF CHIEF COMPLAINT : A 74-year-old female with abdominal pain that started yesterday. She has had intermittent severe pain about every 3 minutes. She has actually had pain off and on since March and she was seen at a hospital in [place], was started on some antibiotics and then [...] in stable condition. Tomy Ashton DO T: [facility] JOB: [id number] 09/11/14 1507 <Electronically signed by Tomy Ashton DO> Date Tomy Ashton DO CC: Raine Gomez MD Date Dictated: 09/04/14147 Date Transcribed: 09/04/14147 Sales And Marketing Representative: Signed 03-Sep-2014 Abdomen/Pelvis WITH Contrast Result: Comments: See Note; NOTES: [facility] Imaging Services [address] [place] [address] CAT Scan Report MR#: [id number] Acct: [id number] Name: ARIEL MATA Rep #: [id number] : 1940 F 74 From: Daniel Wilder MD PCP: Raine Gomez MD Status: REG ER Study: Abdomen/Pelvis WITH Contrast Date of Exam: 09/03/14 Exam# [id number] Ordering Dr: Tomy Ashton TUDY: CT ABDOMEN AND PELVIS WITH CONTRAST [...] at 1:35 EDT Tel , Service support [phone], CC: Raine Gomez MD; Tomy Ashton DO Sales And Marketing Representative: Signed 03-Sep-2014 Hepatobilliary Imaging Result: Comments: See Note; NOTES: [facility] Imaging Services [address] [place] [address] Nuclear Medicine Report MR#: [id number] Acct: [id number] Name: ARIEL MATA Rep #: [id number] : 1940 F 74 From: Thierno Pineda DO PCP: Raine Gomez MD Status: REG CLI Study: Hepatobilliary Imaging Date of Exam: 09/03/14 Exam# [id number] Ordering Dr: Raine Gomez MD CL INICAL: [...] Thierno Pineda DO at 12:38 EDT Tel [phone], Service support [phone], CC: Raine Gomez MD Sales And Marketing Representative: Signed 25-Jun-2014 Pelvic (Non ) Result: Comments: See Note; NOTES: [facility] Imaging Services [address] [place] [address] Ultrasound Report MR#: [id number] Acct: [id number] Name: ARIEL MATA Rep #: [id number] : 1940 F 74 From: Shilo Spencer DO PCP: Raine Gomez MD Status: REG CLI Study: Pelvic (Non ) Date of Exam: 06/25/14 Exam# [id number] Ordering Dr: Raine Gomez MD STUDY: ULTR [...] Shilo Spencer DO at 17:10 EDT Tel [phone], Service support [phone], CC: Raine Gomez MD Sales And Marketing Representative: Signed 12-Jun-2014 Abdomen/Pelvis WITH Contrast Result: Comments: See Note; NOTES: [facility] Imaging Services [address] [place] [address] CAT Scan Report MR#: [id number] Acct: [id number] Name: ARIEL MATA Rep #: [id number] : 1940 F 74 From: Shilo Spencer DO PCP: Raine Gomez MD Status: REG CLI Study: Abdomen/Pelvis WITH Contrast Date of Exam: 06/12/14 Exam# [id number] Ordering Dr: Raine Gomez MD STUDY: CT [...] Shilo Spencer DO at 11:18 EDT Tel [phone], Service support [phone], CC : Raine Gomez MD Sales And Marketing Representative: Signed 09-Jun-2014 Gallbladder Result: Comments: See Note; NOTES: [facility] Imaging Services [address] [place] [address] Ultrasound Report MR#: [id number] Acct: [id number] Name: ARIEL MATA Rep #: [id number] : 1940 F 74 From: Samuel Rhodes MD PCP: Raine Gomez MD Status: REG CLI Study: Gallbladder Date of Exam: 06/09/14 Exam# [id number] Ordering Dr: Raine Gomez MD STUDY: ABDOMINA [...] Samuel Rhodes MD at 10:36 EDT Tel [phone], Service support [phone], CC: Raine Gomez MD Sales And Marketing Representative: Signed 11-Nov-2013 Dexa Bone Density Study () Result: Comments: See Note; NOTES: [facility] Imaging Services [address] [place] [address] Bone Density Report MR#: [id number] Acct: [id number] Name: RAIEL MATA Rep #: [id number] : 1940 F 73 From: Samuel Rhodes MD PCP: Raine Gomez MD Status: [facility] CL Study: Dexa Bone Density Study (HP) Date of Exam: 11/11/13 Exam# [id number] Ordering Dr: Raine Gomez MD STUDY: DUAL [...] Samuel Rhodes MD at 13:40 EDT Tel [phone], Service support [phone], CC: Raine Gomez MD Sales And Marketing Representative: Signed 30-Oct-2013 Bilat Scrn Digital & CAD Result: Comments: See Note; NOTES: [facility] Imaging Services [address] [place] [address] Breast Imaging Report MR#: [id number] Acct: [id number] Name: ARIEL MATA Rep #: [id number] : 1940 F 73 From: Samuel Rhodes MD PCP: Raine Gomez MD Status: REG CLI Exam# [id number] Ordering Dr: Raine Gomez MD MAMMOGRAPHY - [...] Rhodes MD at 12:50 EDT Tel [phone], Service support [phone], CC: Raine Gomez MD Sales And Marketing Representative: Signed 27-Oct-2013 Chest PA and Lateral Result: Comments: See Note; NOTES: [facility] Imaging Services [address] [place] [address] Radiology Report MR#: [id number] Acct: [id number] Name: ARIEL MATA Rep #: [id number] : 1940 F 73 From: New Reyna PCP: Raine Gomez MD Status: REG CLI Study: Chest PA and Lateral Date of Exam: 10/27/13 Exam# [id number] Ordering Dr: Raine Gomez MD STUDY: X-RAY [...] Jolanta Reyna MD at 7:53 EDT Tel [phone], Service support [phone], RAD/Chest PA and Lateral IMPRESSION: No acute cardiopulmonary disease. Elec tronically Signed: New Reyna MD at 7:53 EDT Tel [phone], Service support [phone], CC: Raine Gomez MD Sales And Marketing Representative: Signed Immunization Name Dates Details Influenza (3 years and up) on: 05-Nov-2008 Pneumococcal (2 years and up) on: 12-Sep-2007 Family History Unknown Family Member Name Dates Details Daughter 1 Comments: [place] teaching Status: Active Daughter 2 Status: Active Father Comments: prostate cancer, [place] later in life Status: Active Mother Comments: SUSANNA PERSAUD Status: Active prostate cancer Status: Active Sister [...] Active Living Situation: Lives alone. 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 second boyfriedn [...] Microscopic Examination Comments: PATIENT NOT FASTINGPERFORMED BY: [employer] [place] [facility] [id number] Bacteria Few (Normal) Mucus Threads Present (Normal) Cast Type Hyaline casts (Normal) Casts Present {/lpf} (Abnormal) Epithelial Cells (non renal) >10 {/hpf} (Abnormal) Range: 0 - 10 RBC 0-2 {/hpf} (Normal) Range: 0 - 2 WBC 6-10 {/hpf} (Abnormal) Range: 0 - 5 :40 URINALYSIS (25509) Comments: PATIENT NOT FASTINGPERFORMED BY: [employer] [id number] Microscopic Examination See below: (Normal) Comments: Microscopic was indicated and was performed. Nitrite, Urine Negative (Normal) Urobilinogen,Semi-Qn 0.2 mg/dL (Normal) Range: 0.2-1.0 Bilirubin Negative (Normal) Occult Blood Negative (Normal) Ketones Negative (Normal) Glucose Negative (Normal) Protein Negative (Normal) WBC Esterase 2+ (Abnormal) Appearance Cloudy (Abnormal) Urine-Color Yellow (Normal) pH 5.0 (Normal) Range: 5.0-7.5 Specific [place] 1.021 (Normal) Range: 1.005-1.030 :40 CBC WITH MANUAL DIFF Comments: PATIENT NOT FASTINGPERFORMED BY: [facility]6370 [facility] [id number] Information: NURS DRAW (76862) Immature Grans (Abs) 0.0 {x10E3/uL} (Normal) Range: [...] 3.77-5.28 WBC 6.0 {x10E3/uL} (Normal) Range: 3.4-10.8 :40 Metabolic Panel, Comprehensive Comments: PATIENT NOT FASTINGPERFORMED BY: [facility] [id number] (54010) ALT (SGPT) 10 [iU]/L (Normal) Range: 0-32 [...] be decreased and K increased. Clinicalcorrelation indicated. 7-Nlf-171345:58 URINE ERICA CULTURE-IDENTIFICATN Comments: PATIENT NOT FASTINGPERFORMED BY: [facility] Xfgbsp8382 [facility] [id number] Information: SRC:GEOVANNY (36424) Antimicrobial MIHEAD (Normal) Comments: S = Susceptible; [...] Final report Culture,Comprehensive (Abnormal) 12-Jul-20179:21 Urinalysis, Office (94145) UA - LEUKOCYTE ESTERASE Small (Normal) UA - NITRITE Negative (Normal) URINE UROBILINGN JANETH TIMED Normal mg/dL (Normal) UA - PROTEIN Negative mg/dL (Normal) UA - PH 6 (Abnormal) UA - BLOOD Non Hemolyzed Trace (Normal) UA - SPECIFIC GRAVITY 1.020 (Normal) UA - KETONES Negative mg/dL (Normal) UA - BILIRUBIN Negative (Normal) UA - GLUCOSE Negative (Normal) 31-Knt-630672:56 Renal function Panel (77855) Comments: PATIENT NOT FASTINGPERFORMED BY: [facility] HospitalZaykbg6564 [facility] [id number] Albumin 4.1 g/dL (Normal) Range: 3.5-4.8 Phosphorus [...] 8-27 Glucose 87 mg/dL (Normal) Range: 65-99 86-Gkv-04455:29 HgA1C , Office (09842) HgA1C , Office 5.1 % (Normal) Range: 4.6 - 7.1 28-Bpk-939505:17 Metabolic Panel, Basic Comments: PATIENT NOT FASTINGPERFORMED BY: [employer] Answer.To [facility] [id number] (68015) Calcium, Serum 9.2 mg/dL (Normal) Range: 8.7-10.3 [...] Glucose, Serum 85 mg/dL (Normal) Range: 65-99 89-Dke-122836:48 HgA1C , Office (16194) HgA1C , Office 5.3 % (Normal) Range: 4.6 - 7.1 30-Gjt-275565:44 POTASSIUM SERUM (88366) Comments: PATIENT NOT FASTINGPERFORMED BY: [employer] Fswgpb3612 [facility] [id number] Potassium, Serum 4.0 mmol/L (Normal) Range: 3.5-5.2 40-Kuk-194160:16 Microscopic Examination Comments: PATIENT NOT FASTINGPERFORMED BY: [employer] Answer.To [facility] [id number] Bacteria Few (Normal) Mucus Threads Present (Normal) Epithelial Cells (non renal) 0-10 {/hpf} (Normal) Range: 0 - 10 RBC 3-10 {/hpf} (Abnormal) Range: 0 - 2 WBC >30 {/hpf} (Abnormal) Range: 0 - 5 81-Qcf-827286:16 URINALYSIS (45123) Comments: PATIENT NOT FASTINGPERFORMED BY: [employer] Ngaisc4365 [facility] [id number] Microscopic Examination See below: (Normal) Comments: Microscopic was indicated and was performed. Nitrite, Urine Negative (Normal) Urobilinogen,Semi-Qn 0.2 mg/dL (Normal) Range: 0.2-1.0 Bilirubin Negative (Normal) Occult Blood Negative (Normal) Ketones Negative (Normal) Glucose Negative (Normal) Protein Negative (Normal) WBC Esterase 3+ (Abnormal) Appearance Clear (Normal) Urine-Color Yellow (Normal) pH 6.5 (Normal) Range: 5.0-7.5 Specific [place] 1.022 (Normal) Range: 1.005-1.030 95-Eru-945561:16 Metabolic Panel, Comments: PATIENT NOT FASTINGPERFORMED BY: [facility] Rdfznm0623 [facility] [id number] Information: NURSE DRAW Comprehensive (34112) ALT (SGPT) 13 [iU]/L (Normal) Range: 0-32 [...] (Normal) Range: 65-99 :47 HgA1C , Office (55785) HgA1C , Office 5.1 % (Normal) Range: 4.6 - 7.1 :35 Urine Chloride Comments: [facility] [address] [place], [address] UR CL 82 mmol/L (Normal) :35 Urine Potassium Comments: [facility] [address] [place], [address] UR K 28.0 mmol/L (Normal) :35 Urine Sodium Comments: [facility] [address] [place], [address] UR NA 73 mmol/L (Normal) :25 CORTISOL SERUM Comments: Has pt arrived? YBASELINE OR POST MEDICATION STIMULATION?: 60 Min Post MED StimulatiTime Medication Given: [address] [place] [address] [address] [place], [address] CORTISOL 30.60 ug/dL (Abnormal) Range: 3.09-22.40 Comments: Adult (AM) 4.30 - 22.40 ug/dL Adult (PM) 3.09 - 16.66 ug/dL :55 CORTISOL SERUM Comments: Has pt arrived? YBASELINE OR POST MEDICATION STIMULATION?: 30 Min Post MED StimulatiTime Medication Given: [address] [place] [address] [address] [place], [address] CORTISOL 24.20 ug/dL (Abnormal) Range: 3.09-22.40 Comments: Adult (AM) 4.30 - 22.40 ug/dL Adult (PM) 3.09 - 16.66 ug/dL :55 Potassium Comments: [facility] [address] [place], [place], [address] K 4.4 mmol/L (Normal) Range: 3.5-5.1 Comments: Slight Hemolysis, Result may be falsely increased. :05 CORTISOL SERUM Comments: Has pt arrived? YBASELINE OR POST MEDICATION STIMULATION?: [facility] [address] [place], [id number] CORTISOL 17.30 ug/dL (Normal) Range: 3.09-22.40 Comments: Adult (AM) 4.30 - 22.40 ug/dL Adult (PM) 3.09 - 16.66 ug/dL :11 Metabolic Panel, Comprehensive Comments: recheck in 3 weeks; PATIENT NOT FASTINGPERFORMED BY: [facility] Wypcdd6478 [facility] [id number] (87045) ALT (SGPT) 7 [iU]/L (Normal) Range: 0-32 [...] Glucose, Serum 90 mg/dL (Normal) Range: 65-99 50-Xtx-033602:12 POTASSIUM URINE (96089) Comments: PATIENT NOT FASTINGPERFORMED BY: [employer] Hpygzf8757 [facility] [id number] Information: SRC:SANTI J16946 START @549AM FINISH Potassium, Urine 37.4 {mmol/24_hr} (Normal) Range: 25.0-125.0 Potassium, Urine 15.6 mmol/L (Normal) 96-Nsd-497616:00 OSMOLALITY URINE (47891) Comments: re check in 4 weeks; PATIENT WAS FASTINGPERFORMED BY: [employer] Answer.To [facility] [id number] BY: [employer] [id number] Osmolality, Urine 551 {mOsmol/kg} (Normal) Comments: 24 hr : 300 - 900 Random: 50 - 1400 After 12hr fluid restriction: >850 89-Dmb-808339:00 OSMOLALITY BLOOD (44245) Comments: re check in 4 weeks; PATIENT WAS FASTINGPERFORMED BY: [employer] Yhlcry4756 [facility] [id number] BY: [employer] [address] [id number] Osmolality 291 {mOsmol/kg} (Normal) Range: 280-301 55-Jwn-224836:00 Metabolic Panel, Basic Comments: re check in 4 weeks; PATIENT WAS FASTINGPERFORMED BY: [employer] [facility] [id number] BY: [employer] [id number] (74994) nical Information: [id number] FEE 197749 Calcium, Serum 9.3 mg/dL (Normal) Range: 8.7-10.3 [...] Glucose, Serum 89 mg/dL (Normal) Range: 65-99 08-Pyv-046766:00 Sodium Spot Urine Comments: re check in 4 weeks; PATIENT WAS FASTINGPERFORMED BY: [place] 9205870 [facility] [id number] BY: [address] [id number] (45205) Sodium, Urine 132 mmol/L (Normal) 97-Lem-786567:05 POTASSIUM SERUM (60845) Comments: PATIENT NOT FASTINGPERFORMED BY: [employer] [id number] Information: Q20070, 176234 Potassium, Serum 5.5 mmol/L (Abnormal) Range: 3.5-5.2 09-Oks-192347:01 LIPID PANEL (32827) Comments: PATIENT WAS FASTINGPERFORMED BY: [place] 9205870 [facility] [id number] Information: 634891,A34236 LDL/HDL Ratio 1.3 {ratio_units} (Normal) Range: 0.0-3.2 [...] Cholesterol, Total 185 mg/dL (Normal) Range: 100-199 :05 Lactic Acid Comments: Test performed at:[facility] [address] [facility] [place] [address] LACTIC ACID 1.1 mmol/L (Normal) Range: 0.4-2.0 Comments: Specimen moderately hemolyzed. Results may be affected. :05 Troponin-I Comments: 'TROP' Serial specimen #1, #2, #3, or #4: 1Test performed at:[facility] [address] [place], [place] [address] TROPONIN-I < 0.02 ng/mL (Normal) Comments: TROPONIN-I EXPECTED VALUES <0.05 NEGATIVE 0.06 - 0.59 AT RISK OF AR > OR = 0.60 SUGGEST AR :21 CBC W/Diff, Automated Comments: Test performed at:[facility] [address] [facility] [place] [address] Absolute Lymph 0.72 {X10_3/ul} (Abnormal) [...] 4.2-5.4 WBC 12.3 K/mm3 (Abnormal) Range: 4.4-11.0 84-Txf-34568:21 Comprehensive Metabolic Profil Comments: Test performed at:[facility] [address] [place], [place] [address] GAP 9 (Normal) Range: 5-15 CO2 26.0 [...] Comments: Please note revised CREATININE reference range mvnzayyau67/22/2015. BUN 18 mg/dL (Normal) Range: 7-18 GLU 118 mg/dL (Abnormal) Range: 70-110 Comments: Fasting Glucose result from 110 to <126 mg/dLsuggests IMPAIRED HOMEOSTASIS per A.D.A. criteria. :21 Amylase (76903) Comments: Test performed at:[facility] [address] [place] [address] WARD 46 U/L (Normal) Range: 25-115 :21 Lipase (32462) Comments: Test performed at:[facility] Jrzbtfdkuz2804 [facility] [place] [address] LIPASE 110 U/L (Normal) Range: 73-393 11-Hql-03092:35 Urinalysis, Office (64376) UA - LEUKOCYTE ESTERASE Trace (Normal) UA - NITRITE Negative (Normal) URINE UROBILINGN JANETH TIMED Normal mg/dL (Normal) UA - PROTEIN Negative mg/dL (Normal) UA - SPECIFIC GRAVITY 1.030 (Abnormal) UA - KETONES Negative mg/dL (Normal) UA - BILIRUBIN Negative (Normal) UA - GLUCOSE Negative (Normal) :31 Amylase Comments: Test performed at:[facility] Kdbjnsfvqy1938 [facility] [place] [address] WARD 48 U/L (Normal) Range: 25-115 12-Jun-20148:31 CBC-Complete Blood Cnt No Diff Comments: Test performed at:[facility] Lwrbubwoys[address] [place] [address] MPV 10.3 fL (Normal) Range: 6.2-12.0 PLT [...] :31 Comprehensive Metabolic Profil Comments: Test performed at:[facility] Xydwaqrreh[address] [place] [address] GAP 6 (Normal) Range: 5-15 [...] A.D.A. criteria. :31 Lipase Comments: Test performed at:[facility] Iakqvuttmf[address] [place] [address] LIPASE 122 U/L (Normal) Range: 70-290 :19 Urine Culture,Comprehensive Comments: PATIENT NOT FASTINGPERFORMED BY: [facility] Fbwluw2019 [facility]ree [facility] [id number] Information: SRC:UR [id number] Result 1 MUG (Normal) Comments: Mixed urogenital flora1,000 Colonies/mL Urine Culture,Comprehensive Final report (Normal) 10-Jun-20148:40 Urinalysis, Office (28035) UA - LEUKOCYTE ESTERASE Moderate (Normal) UA - NITRITE Negative (Normal) URINE UROBILINGN JANETH TIMED Normal mg/dL (Normal) UA - PROTEIN Negative mg/dL (Normal) UA - PH 6.5 (Normal) UA - BLOOD Negative (Normal) UA - SPECIFIC GRAVITY 1.020 (Normal) UA - KETONES Negative mg/dL (Normal) UA - BILIRUBIN Negative (Normal) UA - GLUCOSE Negative (Normal) 08-Qdg-200308:06 PHOSPHORUS (59954) Comments: PATIENT NOT FASTINGPERFORMED BY: [address] [id number] Information: [id number] Phosphorus, Serum 3.9 mg/dL (Normal) Range: 2.5-4.5 27-Ras-824046:06 MAGNESIUM (87590) Comments: PATIENT NOT FASTINGPERFORMED BY: [address] [id number] Magnesium, Serum 2.2 mg/dL (Normal) Range: 1.6-2.6 90-Nmt-797719:06 CALCIUM, IONIZED (44244) Comments: PATIENT NOT FASTINGPERFORMED BY: [address] [id number] Calcium, Ionized, Serum 5.3 mg/dL (Normal) Range: 4.5-5.6 72-Lva-409066:08 Thin Comments: Source.............Cervical;EndocervicalOther..............Post MenopausalNo. of containers..01 CYTYC Thin Prep VialPATIENT NOT FASTINGPERFORMED BY: [address] [place] 253 prep Pap [id number] Information: [id number] (93446) See Note NEGHPV (Normal) Comments: The HPV [...] for malignant neoplasm of the cervixKerwin Altamirano City Distribution Clerk (ASCP) :22 Microscopic Examination Comments: PATIENT WAS FASTINGPERFORMED BY: [facility]ash [facility] Fboabm7468 [facility] [id number] Bacteria None seen (Normal) Epithelial Cells (non renal) 0-10 {/hpf} (Normal) Range: 0 - 10 RBC 0-2 {/hpf} (Normal) Range: 0 - 2 WBC 0-5 {/hpf} (Normal) Range: 0 - 5 :22 CBC W/AUTO DIFF WBC Comments: copy to Dr. Madsen fax [phone]; PATIENT WAS FASTINGPERFORMED BY: [facility] Rapvxm2911 [facility] [id number] Information: [id number] (23104) Immature Grans (Abs) 0.0 {x10E3/uL} (Normal) Range: [...] 7.5 {x10E3/uL} (Normal) Range: 3.4-10.8 :22 PREALBUMIN (77124) Comments: PATIENT WAS FASTINGPERFORMED BY: [facility] [id number] Prealbumin 18 mg/dL (Abnormal) Range: 20-40 :22 URINALYSIS, W/ MICRO (00945) Comments: PATIENT WAS FASTINGPERFORMED BY: [employer] [facility] [id number] Microscopic Examination See below: (Normal) Comments: Microscopic was indicated and was performed. Nitrite, Urine Negative (Normal) Urobilinogen,Semi-Qn 0.2 mg/dL (Normal) Range: 0.0-1.9 Bilirubin Negative (Normal) Occult Blood Negative (Normal) Ketones Negative (Normal) Glucose Negative (Normal) Protein Negative (Normal) WBC Esterase Trace (Abnormal) Appearance Clear (Normal) Urine-Color Yellow (Normal) pH 6.5 (Normal) Range: 5.0-7.5 Specific [place] 1.013 (Normal) Range: 1.005-1.030 :22 METABOLIC PANEL, COMPREHENSIVE Comments: PATIENT WAS FASTINGPERFORMED BY: Kijubi Answer.To [facility] [id number] (86240) ALT (SGPT) 7 [iU]/L (Normal) Range: 0-32 [...] Glucose, Serum 88 mg/dL (Normal) Range: 65-99 08-Xob-05087:07 PREALBUMIN (84422) Comments: Forward to Dr Yvonne Madsen at fax phone at [address] [facility] [place] [address]; PATIENT NOT FASTINGPERFORMED BY: LabCoSaint James HospitalNeaxnj8406 [facility] [id number] Prealbumin 19 mg/dL (Abnormal) Range: 20-40 :07 CBC with manual diff (24394) Comments: Forward to Dr Yvonne Madsen at fax phone at [address] [facility] [place] [address]; PATIENT NOT FASTINGPERFORMED BY: [facility] Zlvlwp8839 [facility] [id number] Information: [id number] Immature Grans (Abs) 0.0 {x10E3/uL} (Normal) Range: [...] 3.77-5.28 WBC 7.7 {x10E3/uL} (Normal) Range: 3.4-10.8 3-Rta-468601:09 URINE ERICA CULTURE-IDENTIFICATN Comments: PATIENT NOT FASTINGPERFORMED BY: [facility] Srylhy3971 [facility] [id number] Information: [id number] (93418) Result 1 MUG (Normal) Comments: Mixed urogenital flora10,000-25,000 colony forming units per mL Urine Final report (Normal) Culture,Comprehensive 09-May-20138:48 Urinalysis, Office (19456) UA - LEUKOCYTE ESTERASE Small (Normal) UA - NITRITE Negative (Normal) URINE UROBILINGN JANETH TIMED Normal mg/dL (Normal) UA - PROTEIN Negative mg/dL (Normal) UA - PH 7 (Normal) UA - BLOOD Negative (Normal) UA - SPECIFIC GRAVITY 1.020 (Normal) UA - KETONES Negative mg/dL (Normal) UA - BILIRUBIN Negative (Normal) UA - GLUCOSE Negative (Normal) 09-Xht-387412:07 URINE ERICA CULTURE-IDENTIFICATN Comments: PATIENT NOT FASTINGPERFORMED BY: [facility] Nduhkm1896 [facility] [id number] Information: SRC: URINE [id number] (29572) Antimicrobial MIHEAD (Normal) Comments: S = Susceptible; [...] pneumoniae (Normal) Urine Final report Culture,Comprehensive (Normal) 47-Edv-45128:33 Urinalysis, Office (61488) UA - BILIRUBIN Negative (Normal) UA - BLOOD Non Hemolyzed Trace (Normal) UA - GLUCOSE Negative (Normal) UA - KETONES Negative mg/dL (Normal) UA - LEUKOCYTE ESTERASE Negative (Normal) UA - NITRITE Negative (Normal) UA - PH 7.0 (Normal) UA - PROTEIN Negative mg/dL (Normal) UA - SPECIFIC GRAVITY 1.015 (Normal) URINE UROBILINGN JANETH TIMED Normal mg/dL (Normal) 1-Jyl-303540:01 URINE ERICA CULTURE-IDENTIFICATN Comments: PATIENT NOT FASTINGPERFORMED BY: CB [facility] Qqzeru2801 [facility] [id number] Information: [id number] (65671) Result 1 MUG (Normal) Comments: Mixed urogenital flora50,000-100,000 colony forming units per mL Urine Final report (Normal) Culture,Comprehensive 08-Nov-20129:00 Urinalysis, Office (32277) UA - BILIRUBIN Negative (Normal) UA - BLOOD Negative (Normal) UA - GLUCOSE Negative (Normal) UA - KETONES Negative mg/dL (Normal) UA - LEUKOCYTE ESTERASE Moderate (Normal) UA - NITRITE Negative (Normal) UA - PH 6.0 (Normal) UA - PROTEIN Negative mg/dL (Normal) UA - SPECIFIC GRAVITY 1.020 (Normal) URINE UROBILINGN JANETH TIMED Normal mg/dL (Normal) 35-Dpf-110639:41 Thin prep Pap Comments: Source.............Cervical;EndocervicalNo. of containers..01 CYTYC Thin Prep VialPATIENT NOT FASTINGPERFORMED BY: [facility] [address] [id number] Information: [id number] (48108) Note: PAPSMR (Normal) Comments: The Pap smear [...] for deepika gnant neopla sm of the cervixJessica Walker, City Distribution Clerk ([facility]) 72-Pzf-477652:00 [facility] Radiology Report See Note [...] suspiciousabnormality. Signed:Samuel Rhodes M.D.Oct at 1:41:11 PM [id number] Signed GP/GP If you are the referring physician and would like to consult with theradiologist who provided this interpretation, please contact Danie Goyal at [phone]. If this radiologist is unavailable, youwill be directed to another radiologist to assist. If you are a patient with a question regarding this report, pleasecont actyour referring physician directly. Professional Interpretation Provided By: [employer], Phone , These documents contain legally protected [...] or destructionofthese documents. Dictated on 10/28/12 1341 Fay Waller MDeleTranscribed on 10/28/12 1345 by ITS IMPORTSign by Samuel Rhodes MD on 10/28/12 1346 Sign by: Samuel Rhodes MD 5-Yae-193599:22 URINE ERICA CULTURE (JANETH Comments: PATIENT NOT FASTINGPERFORMED BY: [facility] Lukcpn8637 [facility] [id number] Information: SRC:UR [id number] COL COUNT) (12004) Result 1 BETAGB (Normal) Comments: Beta hemolytic [...] Final report (Normal) Culture,Comprehensive 14-Oct-20128:17 Urinalysis, Office (06130) UA - BILIRUBIN Negative (Normal) UA - BLOOD Non Hemolyzed Trace (Normal) UA - GLUCOSE Negative (Normal) UA - KETONES Negative mg/dL (Normal) UA - LEUKOCYTE ESTERASE Small (Normal) UA - NITRITE Negative (Normal) UA - PH 6.0 (Normal) Comments: 5.5 UA - PROTEIN Negative mg/dL (Normal) UA - SPECIFIC GRAVITY 1.025 (Normal) URINE UROBILINGN JANETH TIMED Normal mg/dL (Normal) 71-Rcz-33085:12 URINE ERICA CULTURE-JANETH COL Comments: PATIENT NOT FASTINGPERFORMED BY: [facility]6370 [facility] [id number] Information: SRC:UR [id number] COUNT (45650) Result 1 MUG (Normal) Comments: Mixed urogenital floraGreater than 100,000 colony forming units per mL Urine Culture,Comprehensive Final report (Normal) 69-Cov-92025:10 Urinalysis, Office (46023) UA - BILIRUBIN Negative (Normal) UA - BLOOD Negative (Normal) UA - GLUCOSE Negative (Normal) UA - KETONES Negative mg/dL (Normal) UA - LEUKOCYTE ESTERASE Small (Normal) UA - NITRITE Negative (Normal) UA - PH 7.0 (Normal) UA - PROTEIN Negative mg/dL (Normal) UA - SPECIFIC GRAVITY 1.015 (Normal) URINE UROBILINGN JANETH TIMED Normal mg/dL (Normal) 42-Vqe-837325:10 URINE ERICA CULTURE (JANETH Comments: PATIENT NOT FASTINGPERFORMED BY: LabE[place] 9522070 [facility] [id number] Information: SRC:UR [id number] COL COUNT) (79210) Result 1 BETAGB (Normal) Comments: Beta hemolytic [...] been reportedfor Streptococcus pyogenes (group A). (CLSI 2010) Urine Final report (Normal) Culture,Comprehensive :48 Urinalysis, Office (30336) UA - BILIRUBIN Negative (Normal) UA - BLOOD Hemolyzed Small (Normal) UA - GLUCOSE Negative (Normal) UA - KETONES Small mg/dL (Normal) UA - LEUKOCYTE ESTERASE Large (Normal) UA - NITRITE Negative (Normal) UA - PH 6.0 (Normal) UA - PROTEIN Negative mg/dL (Normal) UA - SPECIFIC GRAVITY 1.025 (Normal) URINE UROBILINGN JANETH TIMED Normal mg/dL (Normal) 4-Vcp-570978:58 URINE ERICA CULTURE-IDENTIFICATN Comments: PATIENT NOT FASTINGPERFORMED BY: [facility] Hopbyu7525 [facility] [id number] Information: [id number] (53410) Result 2 BETAGB (Normal) Comments: Beta hemolytic [...] 800 Colonies/mL (Normal) Urine Final report (Normal) CultureEulaherlinda arleth 4-Gws-011499:46 Urinalysis, Office (32304) UA - BILIRUBIN Negative (Normal) UA - BLOOD Non Hemolyzed Trace (Normal) UA - GLUCOSE Negative (Normal) UA - KETONES Negative mg/dL (Normal) UA - LEUKOCYTE ESTERASE Small (Normal) UA - NITRITE Negative (Normal) UA - PH 7.0 (Normal) UA - PROTEIN Negative mg/dL (Normal) UA - SPECIFIC GRAVITY 1.015 (Normal) URINE UROBILINGN JANETH TIMED Normal mg/dL (Normal) 18-Bxr-317923:00 URINE ERICA CULTURE-JANETH COL Comments: PATIENT NOT FASTINGPERFORMED BY: [facility] Srdvkc9787 [facility] [id number] Information: SRC:UR [id number] COUNT (24672) Result 1 MUG (Normal) Comments: Mixed urogenital flora10,000-25,000 colony forming units per mL Urine Final report (Normal) Culture,Comprehensive 93-Lzc-439815:35 Urinalysis, Office (57144) UA - BILIRUBIN Negative (Normal) UA - BLOOD Negative (Normal) UA - GLUCOSE Negative (Normal) UA - KETONES Negative mg/dL (Normal) UA - LEUKOCYTE ESTERASE Trace (Normal) UA - NITRITE Negative (Normal) UA - PH 7.0 (Normal) UA - PROTEIN Negative mg/dL (Normal) UA - SPECIFIC GRAVITY 1.015 (Normal) URINE UROBILINGN JANETH TIMED 2 mg/dL (Normal) :38 CALCIFIDIOL (61088) VIT D 25 Comments: PATIENT WAS FASTINGPERFORMED BY: [employer] [facility] [id number] Vitamin D, 25-Hydroxy 37.7 ng/mL (Normal) Range: 30.0-100.0 Comments: Vitamin D deficiency has been defined by the [place] ofProm[facility] Hospitalcine and an Endocrine Society practice guideline as alevel of serum 25-OH vitamin D less than 20 ng/mL (1,2).The Endocrine Society went on to further define vitamin Dinsufficiency as a level between 21 and 29 ng/mL (2).1. IOM ([place] of Medicine). 2010. Dietary reference intakes for calcium and D. [place]: The National Academies Press.2. Aaron MF, Curry EVANS, Viet ALLISON, et al. Evaluation, treatment, and prevention of vitamin D deficiency: an Endocrine Society clinical practice guideline. JCEM. 2010; 96(7):1911-30. :38 Lipid Panel (08063) Comments: PATIENT WAS FASTINGPERFORMED BY: [employer] [facility]CoSk[facility] Eamysp9342 [facility] [id number] LDL/HDL Ratio 1.1 {ratio_units} (Normal) Range: 0.0-3.2 LDL Cholesterol Calc 81 mg/dL (Normal) Range: 0-99 VLDL Cholesterol Donovan 22 mg/dL (Normal) Range: 5-40 HDL Cholesterol 76 mg/dL (Normal) Comments: According to ATP-III Guidelines, HDL-C >59 mg/dL is considered anegative risk factor for CHD. Triglycerides 111 mg/dL (Normal) Range: 0-149 Cholesterol, Total 179 mg/dL (Normal) Range: 100-199 :38 CBC (Auto) (03014) Comments: PATIENT WAS FASTINGPERFORMED BY: [facility]6370 [facility] [id number] Platelets 207 {x10E3/uL} (Normal) Range: 155-379 Comments: [...] Metabolic Panel, Comments: PATIENT WAS FASTINGPERFORMED BY: LabCoSaint James HospitalHufivg9102 [facility] [id number] Information: [id number] Comprehensive (18785) ALT (SGPT) 7 [iU]/L (Normal) Range: 0-32 [...] Glucose, Serum 86 mg/dL (Normal) Range: 65-99 :09 Urinalysis, Office (42709) UA - BILIRUBIN Negative (Normal) UA - [...] Rhodes M.D.November 01, 2011 at 10:15:09 AM [id number] Signed GP/GP If you are the referring phys ician and would like to consult with theradiologist who provided this interpretation, please contact Danie Goyal at [phone]. If this radiologist is unavailable, youwill be directed to a [place] radiologist to assist. If you are a patient with a question regarding this report, pleasecontactyour referring physician directly. Professional Interpretation Provided By: [employer], Phone [phone], These documents contain legally protected and confidential [...] destructionofthese documents. Dictated on 11/01/11 0825 by Laura Rhodes MDranscribed on 11/01/11 1021 by ITS IMPORTSign by Samuel Rhodes MD on 30/01 1022 Sign by: Samuel Rhodes MD 32-Vin-52891:07 CBC with manual diff Comments: PATIENT WAS FASTINGPERFORMED BY: [facility]Asc[facility]6370 [facility] [id number] Information: [id number] (67092) Immature Grans (Abs) 0.0 {x10E3/uL} (Normal) Range: [...] 6.2 {x10E3/uL} (Normal) Range: 4.0-10.5 :07 CALCIFIDIOL (07451) VIT D 25 Comments: PATIENT WAS FASTINGPERFORMED BY: SemantifyCarlsbad Medical CenterDaxgiw5228 Adorno [facility] [id number] Vitamin D, 25-Hydroxy 47.5 ng/mL (Normal) Range: 30.0-100.0 Comments: Vitamin D deficiency has been defined by the [place] ofProm[facility] Hospitalcine and an Endocrine Society practice guideline as alevel of serum 25-OH vitamin D less than 20 ng/mL (1,2).The Endocrine Society went on to further define vitamin Dinsufficiency as a level between 21 and 29 ng/mL (2).1. IOM ([place] of Medicine). 2010. Dietary reference intakes for calcium and D. [place]: The National Academies Press.2. Aaron MF, [place], Viet ALLISON, et al. Evaluation, treatment, and prevention of vitamin D deficiency: an Endocrine Society clinical practice guideline. JCEM. 2010; 96(7):1911-30. :07 Metabolic Panel, Comprehensive Comments: PATIENT WAS FASTINGPERFORMED BY: [facility]6370 [facility] [id number] (98304) ALT (SGPT) 7 [iU]/L (Normal) Range: 0-40 [...] Glucose, Serum 87 mg/dL (Normal) Range: 65-99 78-Nyr-56951:07 Lipid Panel (62609) Comments: PATIENT WAS FASTINGPERFORMED BY: LabCoSaint James HospitalUfqlgl3197 [facility] [id number] LDL/HDL Ratio 1.2 {ratio_units} (Normal) Range: 0.0-3.2 [...] 100-199 Comments: Please note reference interval change 32-Zky-153530:46 BILAT SCRN DIGITAL & CAD Radiology Report See Note (Normal) Comments: MAMMOGRAPHY - BILATERAL SCREENING REASON FOR EXAM: Female, 71 years old. Routine annual screeningexamination. PERTINENT HISTORY: Sister with breast cancer. TECHNIQUE: Digital examinat ion. Mediol ateral oblique (MLO) andcraniocaudad (CC) views of both breasts were obtained. CAD: CAD wasperformed on this study. COMPARISON: Comparison is made with prior examinations dated July and [facility] 2009. FINDINGS:The breast composition is heterogeneously dense. [...] Rhodes M.D.October 26, 2011 at 11:14:07 AM [id number] Signed GP/GP If you are the referring physician and would like to consult with ther adiologist who provided this interpretation, please contact Danie Goyal at [phone]. If this radiologist is unavailable, youwill be directed to another radiologist to assist. If you are a patient with a question regarding this report, pleasecontactyour referring physician directly. Professional Interpretation Provided By: [employer], Phone , These documen ts contain legally [...] estructionofthese documents. Dictated on 10/26/11 1046 by Giovanna Rhodes MDscribed on 10/26/11 1120 by ITS IMPORTSign by Samuel Rhodes MD on 10/26/11 1121 Sign by: Carmelo GARRETT,Samuel 18-Out-427444:17 Thin prep Pap Comments: Source.............Cervical;EndocervicalNo. of containers..01 CYTYC Thin Prep VialPATIENT NOT FASTINGPERFORMED BY: [facility] [address] [facility] [place] [id number] Information: [id number] ([id number]) Note: PAPSMR (Normal) Comments: The Pap smear [...] for deepika gnant neopla sm of the cervixElizabejuly Joe, City Distribution Clerk (ASCP) 30-Ffg-555386:04 [facility] DIGITAL [facility] CAD Radiology Report See Note [...] clinically suspiciousabnormality. Dictated on 03/01 1223 by Fay Rhodes MDeleTranscribed on 08/03/10 1403 by ITS IMPORTSign by Samuel Rhodes MD on 08/03/10 1404 Sign by: Samuel Rhodes MD 62-Jol-02879:52 UNILAT RT DIAG DIGITAL & CAD Radiology [...] Category 3: Probably Benign Finding - Initial Agisk-ZorkaqefGoogif-es Suggested. A letter regarding these results will be sent tothepatient by the facility. Approximately 10% of breast cancers are not detected by mammography. Anormal mammogram should not delay biopsy of a clinically suspiciousabnormality. Dictated on 01/27/10 1006 by JANNY SALEHTranscribed on 01/31/102230 by ITS IMPORTSign by JANNY SALEH on 01/31/102231 Sign by: JANNY SALEH 48-Yuz-75320:18 DEXA BONE DENSITY STUDY (HP) Radiology Report See Note (Normal) Comments: Exam Number: [id number] CLINICAL:The patient is a 61 day old woman who is postmenopausal with pastuse of hormone replacement therapy. EXAMINATION:DUAL ENERGY X-RAY ABSORPTIOMETRY / DEXA. TECH NIQUE:Bone D ensity Measurements (BMD) of lumbar spine and bilateral hipswere obtained using a Cloud[employer] scanner.. COMPARISON:2001 at 2006 FINDINGS: Lumbar Spine [...] Foundation http://www.nof.org Reported By: JANNY SALEH M.D. 85-Tsl-111017:00 Thin prep Pap Comments: Source.............Cervical;EndocervicalNo. of containers..01 CYTYC Thin Prep VialPATIENT NOT FASTINGPERFORMED BY: [facility] [address] [id number] Information: [id number] (92709) Note: PAPSMR (Normal) Comments: The Pap smear [...] MALIGNANCY.THIS SPECIMEN WAS RESCREENED PART OF OUR LEAN ENGINEER PROGRAM.Satisfactory for evaluation. Endocervical and/or squamous metaplasticc ells (endoce rvical component) are present.V76.2 ; Screening for malignant neoplasm of the cervixKlaudia Nelson, CytotechnologistNatalia Cutler, Supervisory City Distribution Clerk (ASCP) 16-Tfm-34918:29 Metabolic Panel, Comments: PATIENT WAS FASTINGPERFORMED BY: [facility] Qwmoxk0856 [facility] [id number] Information: [id number] Comprehensive (18808) ALT (SGPT) 10 [iU]/L (Normal) Range: 0-40 [...] Glucose, Serum 87 mg/dL (Normal) Range: 65-99 50-Cjh-21460:29 CALCIFIDIOL (88041) VIT D 25 Comments: PATIENT WAS FASTINGPERFORMED BY: LabCoSaint James HospitalUkkdsh2907 [facility] [id number] Vitamin D, 25-Hydroxy 25.2 ng/mL (Abnormal) Range: 32.0-100.0 Comments: Recent studies consider the lower limit of 32.0 ng/mL to be athreshold for optimal health.Alex MCKOY. J Nutr. 2004;135(2):317-22. :29 Lipid Panel (48371) Comments: PATIENT WAS FASTINGPERFORMED BY: [employer] Zkwsrw2682 [facility] [id number] LDL Cholesterol Calc 104 mg/dL (Abnormal) Range: [...] With Differential/Platelet Comments: PATIENT WAS FASTINGPERFORMED BY: LabCoSkynet Technology International Eiyycs8990 [facility] [id number] Baso (Absolute) 0.0 {x10E3/uL} (Normal) Range: 0.0-0.2 [...] 11.7-15.0 WBC 7.2 {x10E3/uL} (Normal) Range: 4.0-10.5 10-Rsi-03661:41 Comp. Metabolic Panel (14) Comments: PATIENT WAS FASTINGPERFORMED BY: LabCoSaint James HospitalCzzegf7086 [facility] [id number] A/G Ratio 1.1 (Normal) Range: 1.1-2.5 Albumin, [...] Serum 85 mg/dL (Normal) Range: 65-99 If -Eritrean >60 mL/min (Normal) Range: 60-128 Comments: Note: [...] With LDL/HDL Comments: PATIENT WAS FASTINGPERFORMED BY: [facility] TestingJames [facility]. [facility] [id number] Ratio Cholesterol, Total 210 mg/dL (Abnormal) Range: [...] Microscopic Examination Comments: PATIENT WAS FASTINGPERFORMED BY: [employer]6370 [facility]-M[facility] InteractiveC[facility] [id number] Bacteria None seen (Normal) Crystal Type Amorphous Sediment (Normal) Crystals Present (Abnormal) Epithelial Cells (non renal) >10 {/hpf} (Abnormal) Range: 0 - 10 Mucus Threads Present (Abnormal) RBC 0-3 {/hpf} (Normal) Range: 0 - 3 WBC 11-30 {/hpf} (Abnormal) Range: 0 - 5 :41 Urinalysis, Routine Comments: PATIENT WAS FASTINGPERFORMED BY: [employer]6370 [facility]-MOTION InteractiveC[facility] [id number] Appearance Clear (Normal) Bilirubin Negative (Normal) Glucose Negative (Normal) Ketones Negative (Normal) Microscopic Examination See below: (Normal) Nitrite, Urine Negative (Normal) Occult Blood Negative (Normal) pH 7.5 (Normal) Range: 5.0-7.5 Protein Negative (Normal) Specific [place] 1.018 (Normal) Range: 1.005-1.030 Urine-Color Yellow (Normal) Urobilinogen,Semi-Qn 0.2 mg/dL (Normal) Range: 0.0-1.9 WBC Esterase 3+ (Abnormal) :13 KNEE,4 OR MORE VIEWS Radiology Report See Note (Normal) Comments: Exam Number: [id number] LEFT KNEE - VIEWS STATEMENTPain. PRIOR STUDIESNone. No acute fracture or joint dislocation is shown. There is no jointeffusion. No suspicious bone lesions or pathologic calcific ations. There is mild narrowing over the medial joint compartment. IMPRESSIONMild narrowing of the medial joint compartment, otherwise negativeleft knee. Reported By: GRACE CORDERO M.D. :55 Pap Lb, rfx HPV Comments: Source.............Cervical;EndocervicalNo. of containers..01 CYTYC Thin Prep VialPERFORMED BY: LabCo[address] [id number] all pth . . (Normal) DIAGNOSIS: SPRCS (Normal) Comments: NEGATIVE FOR INTRAEPITHELIAL LESION AND MALIGNANCY.Satisfactory for evaluation. Endocervical and/or squamous metaplasticcells (endocervical component) are present.V72.31 ; Routine gynecolog ical examina Dayna Rasmussen City Distribution Clerk (ASCP) Note: PAPSMR (Normal) Comments: The Pap [...] resulttherefore, no HPV testing was performed. . :40 DEXA BONE DENSITY STUDY (HP) Radiology Report See Note (Normal) Comments: Exam Number: [id number] BONE DENSITOMETRY TECHNIQUE Bone densitometry of the [...] density is measured at 6.2% greater than [id number]. The T-value of the left femoral neck [...] cervix Planned Observations CBC WITH MANUAL DIFF ([id number])Indication: Impaired fasting glucose On: 40-Ejn-522053:39 Request Metabolic Panel, Comprehensive ([id number])Indication: Hyperkalemia On: 90-Hyz-326862:32 Request Comments: re check in 4 weeks POTASSIUM URINE ([id number])Indication: Hyperkalemia On: 46-Myp-852397:43 Request Comments: re check in 4 weeks CBC with auto diff ([id number])Indication: Abdominal pain On: :03 Request Metabolic Panel, Comprehensive ([id number])Indication: Abdominal pain On: :03 Request Lipase ([id number])Indication: Abdominal pain On: :28 Request Amylase ([id number])Indication: Abdominal pain On: :28 Request CBC (Auto) ([id number])Indication: Abdominal pain On: :27 Request Metabolic Panel, Comprehensive ([id number])Indication: Abdominal pain On: :27 Request URINE ERICA CULTURE-JANETH COL COUNT ([id number])Indication: UTI (lower urinary tract infection) On: :50 Request URINE ERICA CULTURE-JANETH COL COUNT ([id number])Indication: UTI (lower urinary tract infection) On: :40 Request URINE ERICA CULTURE-IDENTIFICATN ([id number])Indication: Urinary frequency On: 79-Bfg-908610:47 Request Comments: recheck after finish antibiotic URINALYSIS ([id number])Indication: Urinary frequency On: :47 Request Thin prep Pap ([id number])Indication: Screening for malignant neoplasm of cervix On: 1-Bqf-242019:20 Request URINALYSIS ([id number])Indication: Screening for malignant neoplasm of cervix On: 1-Foa-359009:19 Request URINALYSIS ([id number])Indication: Screening for malignant neoplasm of cervix On: 4-Axx-088386:19 Request CBC (Auto) ([id number])Indication: Screening for malignant neoplasm of cervix On: :18 Request Metabolic Panel, Comprehensive ([id number])Indication: Screening for malignant neoplasm of cervix On: 9-Qpb-305692:18 Request Lipid Panel ([id number])Indication: Screening for malignant neoplasm of cervix On: 0-Knl-163038:18 Request Planned Encounters Medical; [facility] 6 Month Fu - On: 23-May-2018 8:45 [facility] Jason GARRETT, aRine Gross MD Planned Procedures Bone Density StudyBy: Jason GARRETT, On: 08-Nov-2017 Intent Raine Gross MD Comments: schedule after 11-15-17 MAMMOGRAM BREAST BILATERAL SCREENING On: 08-Nov-2017 Intent DIGITAL ([id number])By: Raine Gomez MD Comments: schedule after 11-16-17 M Raine Gomez MD INJECTION, PROLIA ([id number])By: Visit, On: 01-Aug-2017 Intent Nurse Comments: pt own med lot [id number] exp 10/25 given sq lt arm Flu Vaccine (Quadrivalent) 99827Mb: On: 23-Nov-2016 Intent Raine Gomez MD, MD, Dana Comments: Lot #[id number]-07/23/17ite-L dltd, IMDose prefilled syringegiven by:MLVALENTE mcbrideNVIS and RODRIGO signed M Ear Irrigation ([id number])By: Jason On: 01-Sep-2016 Intent Raine GARRETT MD, Dana M Comments: Ear Irrigation performed on:bilateralAmount/color removed cerumen: large amountOUtcome:clear and tolerated Wax CurettesBy: Raine Gomez MD On: 01-Sep-2016 Intent Raine Gomez MD SCREENING DIGITAL TOMOSYNTHESIS OF On: 01-Sep-2016 Intent BREAST ([id number])By: Raine Gomez MD Comments: 10-22 Raine Gomez MD INJECTION, PROLIA ([id number])By: Visit, On: 01-Aug-2016 Intent Nurse Comments: [id number]/prefilled syringeR arm, IMML Long, 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 Flu Vaccine (Quadrivalent) 80550My: On: 20-Oct-2015 Intent Raine Gomez MD, MD, Dana Comments: FLUlot: [id number]:08/04/16site:Lt deltoidroute:IMdose:.5mlDEMICK, MA M Wax CurettesBy: Raine Gomez MD On: 19-Aug-2015 Intent Raine Gomez MD Ear Irrigation ([id number])By: Jason On: 19-Aug-2015 Raine Frances MD, MD, Dana M DEXA SCAN AXIAL SKELETON ([id number])By: On: 19-Aug-2015 Intent Raine Gomez MD, MD, Dana Comments: after 9-16 M MAMMOGRAM, SCREENING, BOTH BREAST On: 19-Aug-2015 Intent ([id number])By: Raine Gomez MD Comments: after -16 due Raine Gomez MD INJECTION, PROLIA ([id number])By: Jason On: 12-Aug-2015 Intent Raine GARRETT MD, Dana M Comments: prolialot:[id number]:ite:lt subqroute:subqdose:60mgD.KP Tian MAMMOGRAM, SCREENING, BOTH BREAST On: 28-May-2015 Intent ([id number])By: Raine Gomez MD, MD, Dana M DEXA SCAN AXIAL SKELETON ([id number])By: On: 28-May-2015 Intent Raine Gomez MD, MD, Dana M INJECTION PROLIA ([id number])By: Jason On: 01-Feb-2015 Intent Raine GARRETT MD, Dana M Comments: lot: [id number]: ite/route: L arm/SQamt: prefilled syringeVIS signed when applicableAsc[facility] ADMINISTRATION OF INFLUENZA VIRUS On: 02-Nov-2014 Intent VACCINE (G0008)By: Raine Gomez MD, MD, Dana M Toradol Injection, 30 mg ([id number])By: On: 03-Sep-2014 Intent Raine Gomez MD, MD, Dana Comments: Lot:[id number]:04/05/2016Dose:30mgRoute:imSite:r hipGiven By:ENDY crocker M Phenergan Injection, up to 50 mg On: 03-Sep-2014 Intent (J2550)By: Raine Gomez MD Comments: 25 mg IV Raine Gomez MD INFUSION, NORMAL SALINE SOLUTION , On: 03-Sep-2014 Intent 1000 CC (Special Coverage Comments: IV Therapy evpbixlkg55G, 1 inchSite: L acTolerated: moderately wellno redness or swelling, no s/s infiltrationER, LPNPhenergan push - DB, [id number] Instructions Apply. See MCM: 2049) ([id number])By: Raine Gomez MD, MD, Dana M Nuclear Medicine - HIDA w/CPKBy: On: 03-Sep-2014 Intent Raine Gomez MD, MD, Dana M INJECTION, PROLIA ([id number])By: Alyssa, On: 30-Jul-2014 Intent Aura Comments: lot:[id number]:10.17route:SQdose:60mgSite:L armgiven by: Michelle Shah FURNITURE BUILDER Ultrasound - PelvisBy: Jason GARRETT, On: 24-Jun-[address] - Abdomen & Pelvis (IV Contrast On: 12-Jun-2014 Intent Needed)By: Jason GARRETT, Raine Gross MD Ultrasound - GallbladderBy: Ciesa On: 08-Jun-2014 Intent Karla KUNZ INJECTION, PROLIA (J0897)By: Anjum On: 03-Feb-2014 Intent Yesika DE PAZ Comments: lot [id number] 6.17left BALDEV Mckeon ADMINISTRATION OF INFLUENZA VIRUS On: 07-Nov-2013 Intent VACCINE (G0008)By: Visit, Nurse Comments: Lot #[id number]-L dltd, IMDose prefilled syringegiven by:ARIANNA Tobar and ABN signed FLU VAC, SPLIT, >3 YEARS, INTRAMUSC On: 07-Nov-2013 Intent ([id number])By: Visit, Nurse Bone Density StudyBy: Jason GARRETT, On: 30-Oct-2013 Intent Raine Gross MD BILATERAL MAMMOGRAMS ([id number])By: On: 30-Oct-2013 Intent Raine Gomez MD, MD, Dana M Radiology - ChestBy: Jason GARRETT, On: 27-Oct-2013 Intent Raine Gross MD EKG ([id number])By: Raine Gomez MD On: 27-Oct-2013 Intent Raine Gomez MD Comments: see scanned document of test done to see results reviewed today with patient DRAIN/INJECT MAJOR JOINT OR BURSA On: 29-May-2013 Intent ([id number])By: Raine Gomez MD, MD, Dana M Eprescribed prescriptions ([id number])By: On: 29-May-2013 Intent Raine Gomez MD, MD, Dana M DRAIN/INJECT MAJOR JOINT OR BURSA On: 22-May-2013 Intent ()By: Raine Gomez MD Comments: Lot #:[id number] date:mount given:2ml Route: intra articular Site given:left knee Given By: Raine Honeycutt MD DRAIN/INJECT MAJOR JOINT OR BURSA On: 13-May-2013 Intent ()By: Raine Gomez MD, MD, Dana M Kenalog Injection, 10 mgm On: 03-Feb-2013 Intent (J3301)By: Raine Gomez MD Comments: kenalog 1 continue current treatment plan llot # [id number] 06-17, bupivacaine lot#[id number] Raine Gomez MD Kenalog [...] SPLIT, >3 YEARS, INTRAMUSC On: 28-Oct-2012 Intent ([id number])By: Lula Flores Pap Smear, Medicare (Q0091)By: On: 28-Oct-2012 Intent Raine Gomez MD, MD, Dana M Pelvic and Breast, Medicare On: 28-Oct-2012 Intent (G0101)By: Raine Gomez MD, MD, Dana M MAMMOGRAM, SCREENING, BOTH BREASTS On: 28-Oct-2012 Intent ([id number])By: Raine Gomez MD, MD, Dana M Kenalog [...] Dana M SPECIMEN HANDLING/TRANSPORT On: 23-Jul-2012 Intent ([id number])By: Sonia Phillips LPN DXA, BONE DENSITY, AXIAL SKELETON On: 26-Oct-2011 Intent ([id number])By: Raine Gomez MD, MD, Dana M MAMMOGRAM, SCREENING, BOTH BREASTS On: 26-Oct-2011 Intent ([id number])By: Raine Gomez MD, MD, Dana M EKG (56539)By: Raine Gomez MD On: 26-Oct-2011 Intent Raine Gomez MD Comments: see scanned document of test done to see results reviewed today with patient FLU VAC, SPLIT, >3 YEARS, INTRAMUSC On: 26-Oct-2011 Intent (54901)By: DANIAL Mayorga Comments: Lot #:[id number] date:ount given:prefilled syringeRoute: IMSite given:Given by: VIS signed ADMINISTRATION OF INFLUENZA VIRUS On: 26-Oct-2011 Intent VACCINE (G0008)By: DANIAL Mayorga Breast Diagnostic - BilateralBy: On: 03-Apr-2011 Intent Raine Gomez MD, MD, Dana M Breast Diagnostic - BilateralBy: On: 04-Aug-2010 Intent Raine Gomez MD, MD, Dana M PNEUM VAC ADLT/IMUMNOSPR, SBC/INTRM On: 06-Jun-2010 Intent (11216)By: Raine Gomez MD Comments: lot # [id number]- 04/09/1163bdpi-HLASuxvqp-NOtvdz- 0.5 ML tolerated well Raine Gómez LPN, MD TD Injection , IM (33225)By: On: 06-Jun-2010 Intent Raine Gomez MD, MD, Dana Comments: lot # [id number]- 12/21/1109cdzh-TTPZgucax-AEyypz- 0.5ML tolerated well Katie Dunlap ADMINISTRATION OF PNEUMOCOCCAL On: 06-Jun-2010 Intent VACCINE (G0009)By: Raine Gomez MD, MD, Dana M Inhaler Demonstration ([id number])By: On: 30-May-2010 Intent Karla Tabares CNP Pulse Oximetry (29414)By: Rayshawn KUNZ, On: 30-May-2010 Intent Karla Mahmood Aerosol Treatment (02537)By: Rayshawn On: 30-May-2010 Intent Karla KUNZ Eprescribed [...] MAMMOGRAM, SCREENING, BOTH BREASTS On: 22-Oct-2009 Intent ([id number])By: Raine Gomez MD, MD, Dana M DXA, BONE DENSITY, AXIAL SKELETON On: 22-Oct-2009 Intent (79508)By: Raine Gomez MD, MD, Dana M FLU VAC, SPLIT, >3 YEARS, INTRAMUSC On: 05-Nov-2008 Intent (79142)By: Amanda Luong RN ADMINISTRATION OF INFLUENZA VIRUS On: 05-Nov-2008 Intent VACCINE (G0008)By: Amanda Luong RN ADMINISTRATION OF PNEUMOCOCCAL On: 12-Sep-2007 Intent VACCINE (G0009)By: Raine Gomez MD, MD, Dana M PNEUM VAC ADLT/IMUMNOSPR, SBC/INTRM On: 12-Sep-2007 Intent (86670)By: Raine Gomez MD, MD, Dana M ELECTROCARDIOGRAM, COMPLETE (ECG) On: 12-Sep-2007 Intent ([id number])By: Raine Gomez MD, MD, Dana M Pulse Oximetry (41313)By: Jason On: 12-Sep-2007 Intent Raine GARRETT MD, Raine Dunlap Pap Smear, Medicare (Q0091)By: On: 12-Sep-2007 Intent Raine Gomez MD, MD, Raine Dunlap Pelvic and Breast, Medicare On: 12-Sep-2007 Intent (G0101)By: Raine Gomez MD, MD, Dana M MAMMOGRAM, SCREENING, BOTH BREASTS On: 12-Sep-2007 Intent ([id number])By: Raine Gomez MD, MD, Dana M Bone Density StudyBy: Jason GARRETT, On: 26-Jun-2006 Intent Raine Gross MD MAMMOGRAM, SCREENING, BOTH BREASTS On: 26-Jun-2006 Intent (88670)By: Raine Gomez MD, MD, Dana M Pap Smear, Medicare (Q0091)By: On: 26-Jun-2006 Intent Raine Gomez MD, MD, Raine Dunlap Pelvic and Breast, Medicare On: 26-Jun-2006 Intent (G0101)By: Raine Gomez MD, MD, Dana M Planned Medications INFUSION, NORMAL SALINE SOLUTION , 1000 CC Ordered: 03-Sep-2014 Pending Raine Gomez MD, MD, Dana M INJECTION, KETOROLAC TROMETHAMINE, PER 15 MG Ordered: 03-Sep-2014 Pending Jason GARRETT, Raine Gomez MD, Raine Dunlap INJECTION, PROLIA Ordered: 03-Feb-2014 Pending 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, Yesika INJECTION, PROLIA Ordered: 12-Aug-2015 Pending Jason GARRETT, Raine Gomez MD, Raine Dunlap INJECTION, PROLIA Ordered: 01-Feb-2015 Pending Jason GARRETT, Raine Gomez MD, Raine Dunlap INJECTION, PROLIA Ordered: 30-Jul-2014 Pending Alyssa, Aura INJECTION, PROLIA Ordered: 01-Aug-2016 Pending Visit, Nurse INJECTION, PROLIA Ordered: 01-Aug-2017 Pending Visit, Nurse INJECTION, TRIAMCINOLONE ACETONIDE, NOT OTHERWISE SPECIFIED, 10 MG Ordered: 03-Feb-2013 José Miguel Gomez MD, Raine Gomez MD, Raine Dunlap INJECTION, TRIAMCINOLONE ACETONIDE, NOT OTHERWISE SPECIFIED, 10 MG Ordered: 03-Feb-2013 Pendmarkel Gomez MD, Raine Gomez MD, Raine Dunlap INJECTION, TRIAMCINOLONE ACETONIDE, NOT OTHERWISE SPECIFIED, 10 MG Ordered: 03-Feb-2013 Pendmarkel Gomez MD, Raine Gomez MD, Raine Dunlap INJECTION, TRIAMCINOLONE ACETONIDE, NOT OTHERWISE SPECIFIED, 10 MG Ordered: 17-Oct-2012 José Miguel Gomez MD, Raine Gomez MD, Raine Dunlap INJECTION, TRIAMCINOLONE ACETONIDE, NOT OTHERWISE SPECIFIED, 10 MG Ordered: 17-Oct-2012 Pendmarkel Gomez MD, Raine Gomez MD, Raine Dunlap INJECTION, TRIAMCINOLONE ACETONIDE, NOT OTHERWISE SPECIFIED, 10 MG Ordered: 17-Oct-2012 Pendmarkel Gomez MD, Raine Gomez MD, Raine Dunlap INJECTION, TRIAMCINOLONE ACETONIDE, NOT OTHERWISE SPECIFIED, 10 MG Ordered: 03-Feb-2013 Raine Ellison MD, MD, Raine Dunlap INJECTION, TRIAMCINOLONE ACETONIDE, NOT OTHERWISE SPECIFIED, 10 MG Ordered: 17-Oct-2012 José Miguel Gomez MD, Raine Gomez MD, Raine Dunlap Phenergan 50 MG/ML Injection Solution Ordered: 03-Sep-2014 Pending Raine Gomez MDi MD, Raine Dunlap Instructions Name Dates Details [...] 11:15 [facility] Office Visit On: 22-Dec-2017 6:57 Encounter Reason: Follow up acute care [...] The patient does have durable power of assistant city attorney and living will. The patient has [...] The patient does have durable power of assistant city attorney and living will. The patient has noticed nothing from the geriatic depression scale. Other providers contributing to the patient's care are other: (Dr Membreno Norwood).Encounter Diagnosis: Annual Medicare Physical (V70.0) [facility] [...] (10 End: 27-Oct-2013 11: Dr. Sonny [place], [place] [phone]) . There have been no problems with [...] nothing from the geriatic depression scale (MMS /). Encounter Diagnosis: Well Woman Exam , Medicare [...] cough little with some sputum. started in [place] with the allergies. not on antihsitamineEncounter Diagnosis: [...] The patient does have durable power of assistant city attorney and living will. The patient has [...] [facility] End: 02-Nov-2005 22:28 Payers MedicareTRANSUNITED [facility] [employer] [employer] [employer] ADRIENNE MATA; augusto guarantor
--- OUTSIDE RECORDS SUMMARY | 2018-02-13 03:56 | XMS RPT_ITS | Continuity of Care Document ---
:1940 Author Organization [facility] Address [address] [facility] [address] [place] [address] Phone Care Team Providers Name Role Phone [...] Active Colon polyps (K63.5, 211.3) Comments: 10/11, -11, 11-20 good Status: Active Current nonsmoker (Renamed [...] are up to date amita check at [facility] for prevnar. dental and eye [...] days Quantity: 1 {Pre-filled_Pen_Syringe} Refills: 1 Ordered:05-Jul-2017 Raine Gomez MD, MD, Dana M Start : 05-Jul-2017 Active Triamcinolone Acetonide 0.1 % Mouth/Throat Paste 1 (one) Application apply to oral ulcer bid prn for 30 days Quantity: 1 {Applicator} Refills: 3 Ordered:29-Nov-2017 Raine Gomez MD, MD, Dana M Start : 29-Nov-2017 Active Comments:patient prefers name [...] Quantity: 14 {Tablet} Refills: 0 Ordered:14-Aug-2012 Karla Tbaares CNP Start : 14-Aug-2012 End : 21-Aug-2012 [...] days Quantity: 14 {Tablet} Refills: 0 Ordered:23-Jul-2012 Rayshawn KUNZKarla E Start : 23-Jul-2012 End : 30-Jul-2012 Inactive [...] End : 07-Aug-2016 Inactive Comments:03-30-16 called into [facility] in [place] [phone] UTI KETEK, 400MG (Oral Tablet) 2 (two) [...] days Quantity: 1 {Aerosol_Soln} Refills: 0 Ordered:06-Jun-2010 Alan DE PAZ Sonia Start : 30-May-2010 End : 06-Jun-2010 Inactive VALTREX, 1GM (Oral Tablet) 1 gram Tablet tid for 6 days Quantity: 18 {Tablet} Refills: 0 Ordered:06-Nov-2006 SURENDRA KUNZ REAGAN Start : 06-Nov-2006 End : 13-Nov-2006 Inactive VITAMIN D3, 2000UNIT (Oral Tablet Chewable) bid (2000 UNIT) Inactive Zithromax Z-Shahid 250 MG Oral Tablet uad Tablet as directed until gone for 0 days Quantity: 1 {Package} Refills: 0 Ordered:12-Apr-2017 DANIAL Mayorga Start : 12-Feb-2017 End : 12-Apr-2017 Inactive Comments:dispense one pack ZOSTAVAX, 20295TNC/0.65ML (Subcutaneous Solution Reconstituted) 1 For Solution once [...] Quantity: 90 {Tablet} Refills: 1 Ordered:08-Jun-2014 Slarb Yesika DE PAZ Start : 30-Oct-2013 End : 08-Jun-2014 Discontinued [...] inject left knee needs injected. last injected 9- if this not last than will need [...] 10-Sep-2014 Procedures Procedure Dates Details COLONOSCOPY, DIAGNOSTIC (24360) Completed Oct-2005 Comments: adenoma, 11-29-15 Last Pap Smear, Date Completed 25-Aug-2005 left knee replacement 11-24-13 Completed Date Value Details 16-Nov-2016 SCREENING MAMM (CAD), BILAT Result: Comments: See Note; NOTES: [facility] Imaging Services [address] [place] [address] SCREENING MAMM (CAD), BILAT MR#: [id number] Acct: [id number] Name: ARIEL MATA Rep #: [id number] : 1940 F 76 From: Samuel Rhodes MD PCP: Raine Gomez MD Status: [facility] CL Study: SCREENING MAMM (CAD), BILAT Date of Exam: 11/16/16 Exam# [id number] Ordering Dr: Raine Gomez MD M AMMOGRAPHY [...] delay biopsy of a clinically suspicious abnormality. [id number] Electronically Signed: Samuel Rhodes MD at 13:03 EDT Tel [phone], Service support , CC: Raine Gomez MD Dry Mill Operator: Signed 16-Nov-2015 Bilat Scrn Digital AND CAD Result: Comments: See Note; NOTES: [facility] Imaging Services [address] [place] [address] Verdana 4d Bilat Scrn Digital AND CAD MR#: [id number] Acct: [id number] Name: ARIEL MATA Rep #: [id number] : 1940 F 75 From: Kiara Neves MD PCP: Raine Gomez MD Status: REG CLI Study: Bilat Scrn Digital AND CAD Date of Exam: 11/16/15 Exam# [id number] Ordering Dr: Raine Gomez MAMMOGRAPHY - BILATERAL [...] delay biopsy of a clinically suspicious abnormality. [id number] Electronically Signed: Kiara Neves MD at 15:55 EDT Tel , Service support [phone], CC: Raine Gomez MD Dry Mill Operator: Signed 16-Nov-2015 Bilat Scrn Digital AND CAD Result: Comments: See Note; NOTES: [facility] Imaging Services [address] [place] [address] Verdana 4d Bilat Scrn Digital AND CAD MR#: [id number] Acct: [id number] Name: ARIEL MATA Jewel Rep #: [id number] : 1940 F 75 From: Kiara Neves MD PCP: Raine Gomez MD Status: REG CLI Study: Bilat Scrn Digital AND CAD Date of Exam: 11/16/15 Exam# [id number] Ordering Dr: Raine Gomez ADDENDUM by Kiara Neves MD on 11/18/15 at 1615 HPBI/Bilat Scrn Digital AND CAD 11/18/15 1622 Date cc: Raine Gomez MD * Signed ADDENDUM by Kiara Neves MD on 11/18/15 at 1615 ADDENDUM COMPARISON: Mammograms from November 03, 2014 and October 30 4. Electronically Signed: Kiara Neves MD at 16:15 EDT Tel , Service support [phone], 11/18/15 6280 Date cc: Raine Gomez MD * Meche [...] delay biopsy of a clinically suspicious abnormality. [id number] Electronically Signed: Kiara Neves MD at 15:55 EDT Tel , Service support , CC: Raine Gomez MD Dry Mill Operator: Signed 16-Nov-2015 Dexa Bone Density Study (HP) Result: Comments: See Note; NOTES: [facility] Imaging Services [address] [place] [address] Verdana 4d Dexa Bone Density Study (HP) MR#: [id number] Acct: [id number] Name: DANG MATA Rep #: [id number] : 1940 F 75 From: Samuel Rhodes MD PCP: Raine Gomez MD Status: REG CLI Study: Dexa Bone Density Study (HP) Date of Exam: 11/16/15 Exam# [id number] Ordering Dr: Raine Ruelas i, MD STUDY: [...] Samuel Rhodes MD at 12:41 EDT Tel [phone], Service support [phone], CC: Raine Gomez MD Dry Mill Operator: Signed 03-Nov-2014 Bilat Scrn Digital AND CAD Result: Comments: See Note; NOTES: [facility] Imaging Services [address] [place] [address] Breast Imaging Report MR#: [id number] Acct: [id number] Name: ARIEL MATA Rep #: [id number] : 1940 F 74 From: Samuel Rhodes MD PCP: Raine Gomez MD Status: REG CLI Study: Bilat Maheshn Digital AND CAD Date of Exam: 11/03/14 Exam# [id number] Ordering Dr: Raine Gomez MD MAMMOGRAPHY - [...] Samuel Rhodes MD at 9:32 EDT Tel [phone], Service support [phone], CC: Raine Gomez MD Dry Mill Operator: Signed 02-Nov-2014 FLU VAC, SPLIT, >3 YEARS, INTRAMUSC (54162) Comments: Lot:[id number]:06/20Dose:0.5mLRoute:IMSite:L DltdGiven By:ENDY signed Result: Comments: FLU SHOTlot: [id number]: 5dose:.5 mlSite:LT armRoute: IMDSma Kathy 21-Sep-2014 Upper GI/w Small Bowel Result: Comments: See Note; NOTES: [facility] Imaging Services [address] [place] [address] Radiology Report MR#: [id number] Acct: [id number] Name: ARIEL MATA Rep #: [id number] : 1940 F 74 From: Samuel Rhodes MD PCP: Raine Gomez MD Status: REG CLI Study: Upper GI/w Small Bowel Date of Exam: 09/21/14 Exam# [id number] Ordering Dr: Ronna Colindres MD STUDY: AIR-CONTRAST UPPER GI SERIES AND SMALL BOWEL FOLLOW-THROUGH EXAMINATION. REASON FOR EXAM: Female, 74 years old. Abdominal pain and history of prior intestinal obstruction. FLUOROSCOPY TIME (if ramirez pplied): (1:20) minutes/seconds TECHNIQUE: A cardiac cath lab radiology technologist film was obtained. Following this, the patient ingested barium. Images of the esophagus, stomach and duodenum were obtained. Following this[facility]-through examination was performed. COMPARISON: None. FINDINGS: On the cardiac cath lab radiology technologist film, a moderate amount of fecal material [...] Samuel Rhodes MD at 10:53 EDT Tel [phone], Service support [phone], RAD/Upper GI/w Small Bowel IMPRESSION: Unremarkable examination . Electronically Signed: Samuel Rhodes MD at 10:53 EDT Tel [phone], Service support [phone], CC: Raine Gomez MD; Ronna Colindres MD Dry Mill Operator: Signed 11-Sep-2014 Emergency Department Summary Result: Comments: See Note; NOTES: [facility] Medical Records Department [address] [place] [address] Emergency Department Summary MR#: [id number] Acct: [id number] Name: ARIEL MATA Rep #: [id number] : 1940 74 From: Tomy Ashton DO [...] she was seen at a hospital in [place], was started on some antibiotics and then [...] in stable condition. Tomy Ashton DO T: [facility] JOB: [id number] 09/11/14 1507 <Electronically signed by Tomy Ashton DO> Date Tomy Ashton DO CC: Raine Gomez MD Date Dictated: 09/04/14147 Date Transcribed: 09/04/14147 Dry Mill Operator: Signed 03-Sep-2014 Abdomen/Pelvis WITH Contrast Result: Comments: See Note; NOTES: [facility] Imaging Services [address] [place] [address] CAT Scan Report MR#: [id number] Acct: [id number] Name: ARIEL MATA Rep #: [id number] : 1940 F 74 From: Daniel Wilder MD PCP: Raine Gomez MD Status: REG ER Study: Abdomen/Pelvis WITH Contrast Date of Exam: 09/03/14 Exam# [id number] Ordering Dr: Tomy Ashton TUDY: CT ABDOMEN [...] at 1:35 EDT Tel , Service support [phone], CC: Raine Gomez MD; Tomy Ashton DO Dry Mill Operator: Signed 03-Sep-2014 Hepatobilliary Imaging Result: Comments: See Note; NOTES: [facility] Imaging Services [address] [place] [address] Nuclear Medicine Report MR#: [id number] Acct: [id number] Name: ARIEL MATA Rep #: [id number] : 1940 F 74 From: Thierno Pineda DO PCP: Raine Gomez MD Status: REG CLI Study: Hepatobilliary Imaging Date of Exam: 09/03/14 Exam# [id number] Ordering Dr: Raine Gomez MD CL INICAL: [...] et al, Journal of Nuclear Medicine 32:1695, 1990). Electronically Signed: Thierno Pineda DO at 12:38 EDT Tel [phone], Service support [phone], CC: Raine Gomez MD Dry Mill Operator: Signed 25-Jun-2014 Pelvic (Non ) Result: Comments: See Note; NOTES: [facility] Imaging Services [address] [place] [address] Ultrasound Report MR#: [id number] Acct: [id number] Name: ARIEL MATA Rep #: [id number] : 1940 F 74 From: Shilo Spencer DO PCP: Raine Gomez MD Status: REG CLI Study: Pelvic (Non ) Date of Exam: 06/25/14 Exam# [id number] Ordering Dr: Raine Gomez MD STUDY: ULTR [...] Shilo Spencer DO at 17:10 EDT Tel [phone], Service support [phone], CC: Raine Gomez MD Dry Mill Operator: Signed 12-Jun-2014 Abdomen/Pelvis WITH Contrast Result: Comments: See Note; NOTES: [facility] Imaging Services [address] [place] [address] CAT Scan Report MR#: [id number] Acct: [id number] Name: ARIEL MATA Rep #: [id number] : 1940 F 74 From: Shilo Spencer DO PCP: Raine Gomez MD Status: REG CLI Study: Abdomen/Pelvis WITH Contrast Date of Exam: 06/12/14 Exam# [id number] Ordering Dr: Raine Gomez MD STUDY: CT [...] Shilo Spencer DO at 11:18 EDT Tel [phone], Service support [phone], CC : Raine Gomez MD Dry Mill Operator: Signed 09-Jun-2014 Gallbladder Result: Comments: See Note; NOTES: [facility] Imaging Services [address] [place] [address] Ultrasound Report MR#: [id number] Acct: [id number] Name: ARIEL MATA Rep #: [id number] : 1940 F 74 From: Samuel Rhodes MD PCP: Raine Gomez MD Status: REG CLI Study: Gallbladder Date of Exam: 06/09/14 Exam# [id number] Ordering Dr: Raine Gomez MD STUDY: ABDOMINA [...] Samuel Rhodes MD at 10:36 EDT Tel [phone], Service support [phone], CC: Raine Gomez MD Dry Mill Operator: Signed 11-Nov-2013 Dexa Bone Density Study (HP) Result: Comments: See Note; NOTES: [facility] Imaging Services [address] [place] [address] Bone Density Report MR#: [id number] Acct: [id number] Name: ARIEL MATA Rep #: [id number] : 1940 F 73 From: Samuel Rhodes MD PCP: Raine Gomez MD Status: REG CLI Study: Dexa Bone Density Study (HP) Date of Exam: 11/11/13 Exam# [id number] Ordering Dr: Raine Gomez MD STUDY: DUAL [...] Samuel Rhodes MD at 13:40 EDT Tel [phone], Service support [phone], CC: Raine Gomez MD Dry Mill Operator: Signed 30-Oct-2013 Bilat Scrn Digital & CAD Result: Comments: See Note; NOTES: [facility] Imaging Services [address] [place] [address] Breast Imaging Report MR#: [id number] Acct: [id number] Name: ARIEL MATA Rep #: [id number] : 1940 F 73 From: Samuel Rhodes MD PCP: Raine Gomez MD Status: REG CLI Exam# [id number] Ordering Dr: Raine Gomez MD MAMMOGRAPHY - [...] Samuel Rhodes MD at 12:50 EDT Tel [phone], Service support [phone], CC: Raine Gomez MD Dry Mill Operator: Signed 27-Oct-2013 Chest PA and Lateral Result: Comments: See Note; NOTES: [facility] Imaging Services [address] [place] [address] Radiology Report MR#: [id number] Acct: [id number] Name: ARIEL MATA Rep #: [id number] : 1940 F 73 From: New Reyna PCP: Raine Gomez MD Status: REG CLI Study: Chest PA and Lateral Date of Exam: 10/27/13 Exam# [id number] Ordering Dr: Raine Gomez MD STUDY: X-RAY [...] Jolanta Reyna MD at 7:53 EDT Tel [phone], Service support [phone], RAD/Chest PA and Lateral IMPRESSION: No acute cardiopulmonary disease. Elec tronically Signed: New Renya MD at 7:53 EDT Tel [phone], Service support [phone], CC: Raine Gomez MD Dry Mill Operator: Signed Immunization Name Dates Details Influenza (3 years and up) on: 05-Nov-2008 Pneumococcal (2 years and up) on: 12-Sep-2007 Family History Unknown Family Member Name Dates Details Daughter 1 Comments: [place] teaching Status: Active Daughter 2 Status: Active Father Comments: prostate cancer, [place] later in life Status: Active Mother Comments: TIA, PERSAUD Status: Active prostate cancer Status: Active [...] Active Living Situation: Lives alone. Comments: , [employer] goer Fabiola important in life. laz boyieddeidre 10-22 Status: Active No Drug Use Status: [...] Microscopic Examination Comments: PATIENT NOT FASTINGPERFORMED BY: MADHAVI ENOVIX [facility] [id number] Bacteria Few (Normal) Mucus Threads Present (Normal) Cast Type Hyaline casts (Normal) Casts Present {/lpf} (Abnormal) Epithelial Cells (non renal) >10 {/hpf} (Abnormal) Range: 0 - 10 RBC 0-2 {/hpf} (Normal) Range: 0 - 2 WBC 6-10 {/hpf} (Abnormal) Range: 0 - 5 :40 URINALYSIS (69022) Comments: PATIENT NOT FASTINGPERFORMED BY: [employer] Ojwoir5464 [facility] [id number] Microscopic Examination See below: (Normal) Comments: Microscopic was indicated and was performed. Nitrite, Urine Negative (Normal) Urobilinogen,Semi-Qn 0.2 mg/dL (Normal) Range: 0.2-1.0 Bilirubin Negative (Normal) Occult Blood Negative (Normal) Ketones Negative (Normal) Glucose Negative (Normal) Protein Negative (Normal) WBC Esterase 2+ (Abnormal) Appearance Cloudy (Abnormal) Urine-Color Yellow (Normal) pH 5.0 (Normal) Range: 5.0-7.5 Specific [place] 1.021 (Normal) Range: 1.005-1.030 :40 CBC WITH MANUAL DIFF Comments: PATIENT NOT FASTINGPERFORMED BY: [employer]IX Aicchq0566 [facility] [id number] Information: NURS DRAW (88440) Immature Grans (Abs) 0.0 {x10E3/uL} (Normal) Range: [...] 3.77-5.28 WBC 6.0 {x10E3/uL} (Normal) Range: 3.4-10.8 72-Fps-59955:40 Metabolic Panel, Comprehensive Comments: PATIENT NOT FASTINGPERFORMED BY: LabCoVirt[facility])Dxyxlt7665 [facility] [id number] (18908) ALT (SGPT) 10 [iU]/L (Normal) Range: 0-32 [...] be decreased and K increased. Clinicalcorrelation indicated. 7-Zbm-822748:58 URINE ERICA CULTURE-IDENTIFICATN Comments: PATIENT NOT FASTINGPERFORMED BY: LabSaint [facility] Zinnxq0088 [facility] [id number] Information: SRC:GEOVANNY (33718) Antimicrobial MIHEAD (Normal) Comments: S = Susceptible; [...] Final report Culture,Comprehensive (Abnormal) 12-Jul-20179:21 Urinalysis, Office (27654) UA - LEUKOCYTE ESTERASE Small (Normal) UA - NITRITE Negative (Normal) URINE UROBILINGN JANETH TIMED Normal mg/dL (Normal) UA - PROTEIN Negative mg/dL (Normal) UA - PH 6 (Abnormal) UA - BLOOD Non Hemolyzed Trace (Normal) UA - SPECIFIC GRAVITY 1.020 (Normal) UA - KETONES Negative mg/dL (Normal) UA - BILIRUBIN Negative (Normal) UA - GLUCOSE Negative (Normal) 47-Lhc-497210:56 Renal function Panel (81197) Comments: PATIENT NOT FASTINGPERFORMED BY: [facility])Ogfwrq9503 [facility] [id number] Albumin 4.1 g/dL (Normal) Range: 3.5-4.8 Phosphorus [...] 8-27 Glucose 87 mg/dL (Normal) Range: 65-99 29-Qub-41421:29 HgA1C , Office (55391) HgA1C , Office 5.1 % (Normal) Range: 4.6 - 7.1 43-Cqf-120428:17 Metabolic Panel, Basic Comments: PATIENT NOT FASTINGPERFORMED BY: EN[employer]IX Tgnlis2948 [facility] [id number] (73762) Calcium, Serum 9.2 mg/dL (Normal) Range: 8.7-10.3 [...] Glucose, Serum 85 mg/dL (Normal) Range: 65-99 35-Rmr-516530:48 HgA1C , Office (43803) HgA1C , Office 5.3 % (Normal) Range: 4.6 - 7.1 87-Zak-488549:44 POTASSIUM SERUM (19567) Comments: PATIENT NOT FASTINGPERFORMED BY: ENOVIXGuadalupe County HospitalDrwicz8057 [facility] [id number] Potassium, Serum 4.0 mmol/L (Normal) Range: 3.5-5.2 57-Hgr-998597:16 Microscopic Examination Comments: PATIENT NOT FASTINGPERFORMED BY: Pain DoctorHenry Ford [facility] Hospital6370 [facility] [id number] Bacteria Few (Normal) Mucus Threads Present (Normal) Epithelial Cells (non renal) 0-10 {/hpf} (Normal) Range: 0 - 10 RBC 3-10 {/hpf} (Abnormal) Range: 0 - 2 WBC >30 {/hpf} (Abnormal) Range: 0 - 5 10-Vbi-786049:16 URINALYSIS (13146) Comments: PATIENT NOT FASTINGPERFORMED BY: Pain DoctorSaint John'S Health System Qhpmyn6945 [facility] [id number] Microscopic Examination See below: (Normal) Comments: Microscopic was indicated and was performed. Nitrite, Urine Negative (Normal) Urobilinogen,Semi-Qn 0.2 mg/dL (Normal) Range: 0.2-1.0 Bilirubin Negative (Normal) Occult Blood Negative (Normal) Ketones Negative (Normal) Glucose Negative (Normal) Protein Negative (Normal) WBC Esterase 3+ (Abnormal) Appearance Clear (Normal) Urine-Color Yellow (Normal) pH 6.5 (Normal) Range: 5.0-7.5 Specific [place] 1.022 (Normal) Range: 1.005-1.030 85-Piv-917730:16 Metabolic Panel, Comments: PATIENT NOT FASTINGPERFORMED BY: [facility]CoV[facility])Tlzxhh4753 [facility] [id number] Information: NURSE DRAW Comprehensive (21280) ALT (SGPT) 13 [iU]/L (Normal) Range: 0-32 [...] (Normal) Range: 65-99 :47 HgA1C , Office (15244) HgA1C , Office 5.1 % (Normal) Range: 4.6 - 7.1 :35 Urine Chloride Comments: [facility] [address] [place], [address] UR CL 82 mmol/L (Normal) :35 Urine Potassium Comments: [facility] [address] [place], [address] UR K 28.0 mmol/L (Normal) :35 Urine Sodium Comments: [facility] [address] [place], [address] UR NA 73 mmol/L (Normal) :25 CORTISOL SERUM Comments: Has pt arrived? YBASELINE OR POST MEDICATION STIMULATION?: 60 Min Post MED StimulatiTime Medication Given: [address] [place] [address] [place], [phone] CORTISOL 30.60 ug/dL (Abnormal) Range: 3.09-22.40 Comments: Adult (AM) 4.30 - 22.40 ug/dL Adult (PM) 3.09 - 16.66 ug/dL :55 CORTISOL SERUM Comments: Has pt arrived? YBASELINE OR POST MEDICATION STIMULATION?: 30 Min Post MED StimulatiTime Medication Given: [address] [place] [address] [place], [address] CORTISOL 24.20 ug/dL (Abnormal) Range: 3.09-22.40 Comments: Adult (AM) 4.30 - 22.40 ug/dL Adult (PM) 3.09 - 16.66 ug/dL :55 Potassium Comments: [facility] [address] [place], [address] K 4.4 mmol/L (Normal) Range: 3.5-5.1 Comments: Slight Hemolysis, Result may be falsely increased. :05 CORTISOL SERUM Comments: Has pt arrived? YBASELINE OR POST MEDICATION STIMULATION?: [facility]WT[facility] [address] [place], [address] CORTISOL 17.30 ug/dL (Normal) Range: 3.09-22.40 Comments: Adult (AM) 4.30 - 22.40 ug/dL Adult (PM) 3.09 - 16.66 ug/dL 24-Cca-515746:11 Metabolic Panel, Comprehensive Comments: recheck in 3 weeks; PATIENT NOT FASTINGPERFORMED BY: [facility])Bdjdyp6911 [facility] [id number] (96514) ALT (SGPT) 7 [iU]/L (Normal) Range: 0-32 [...] Glucose, Serum 90 mg/dL (Normal) Range: 65-99 97-Ayh-709588:12 POTASSIUM URINE (88893) Comments: PATIENT NOT FASTINGPERFORMED BY: HF Food TechnologiesVirtua [facility] ([facility])Uxgvxd3561 [facility] [id number] Information: SRC:SANTI C13599 START @549AM FINISH Potassium, Urine 37.4 {mmol/24_hr} (Normal) Range: 25.0-125.0 Potassium, Urine 15.6 mmol/L (Normal) 47-Qsx-841589:00 OSMOLALITY URINE (89232) Comments: re check in 4 weeks; PATIENT WAS FASTINGPERFORMED BY: HF Food TechnologiesGuadalupe County HospitalOknhzy4450 [facility] [id number] BY: Pain Doctor[address] [id number] Osmolality, Urine 551 {mOsmol/kg} (Normal) Comments: 24 hr : 300 - 900 Random: 50 - 1400 After 12hr fluid restriction: >850 45-Ikm-330629:00 OSMOLALITY BLOOD (93454) Comments: re check in 4 weeks; PATIENT WAS FASTINGPERFORMED BY: ENOVIXMonica Ville 8106970 [facility] [id number] BY: Pain Doctor[address] [id number] Osmolality 291 {mOsmol/kg} (Normal) Range: 280-301 61-Jzr-555352:00 Metabolic Panel, Basic Comments: re check in 4 weeks; PATIENT WAS FASTINGPERFORMED BY: ENOVIXVirtua Mt. Holly (Memorial)Oofavi[address] [place] [address] [id number] BY: Pain Doctor[address] [id number] (77963) nical Information: [id number] [id number] Calcium, Serum 9.3 mg/dL (Normal) Range: 8.7-10.3 [...] Glucose, Serum 89 mg/dL (Normal) Range: 65-99 30-Oip-797812:00 Sodium Spot Urine Comments: re check in 4 weeks; PATIENT WAS FASTINGPERFORMED BY: ENOVIX[address] [id number] BY: [address] [id number] (88802) Sodium, Urine 132 mmol/L (Normal) 78-Fmp-528711:05 POTASSIUM SERUM (06885) Comments: PATIENT NOT FASTINGPERFORMED BY: ENOVIX[address] [id number] Information: Z75976, 677895 Potassium, Serum 5.5 mmol/L (Abnormal) Range: 3.5-5.2 18-Jyp-441827:01 LIPID PANEL (27792) Comments: PATIENT WAS FASTINGPERFORMED BY: Pain Doctor[address] [id number] Information: 181072,V66537 LDL/HDL Ratio 1.3 {ratio_units} (Normal) Range: 0.0-3.2 [...] Cholesterol, Total 185 mg/dL (Normal) Range: 100-199 08-Kyh-519518:05 Lactic Acid Comments: Test performed at:[facility] [address] [place] [address] LACTIC ACID 1.1 mmol/L (Normal) Range: 0.4-2.0 Comments: Specimen moderately hemolyzed. Results may be affected. :05 Troponin-I Comments: 'TROP' Serial specimen #1, #2, #3, or #4: 1Test performed at:[facility] [address] [place] [address] TROPONIN-I < 0.02 ng/mL (Normal) Comments: TROPONIN-I EXPECTED VALUES <0.05 NEGATIVE 0.06 - 0.59 AT RISK OF KS > OR = 0.60 SUGGEST KS :21 CBC W/Diff, Automated Comments: Test performed at:[facility] [address] [place] [address] Absolute Lymph 0.72 {X10_3/ul} (Abnormal) [...] 4.2-5.4 WBC 12.3 K/mm3 (Abnormal) Range: 4.4-11.0 50-Msd-61864:21 Comprehensive Metabolic Profil Comments: Test performed at:[facility] [address] [facility] [place] [address] GAP 9 (Normal) Range: 5-15 CO2 26.0 [...] Comments: Please note revised CREATININE reference range jjqdwcpku07/22/2015. BUN 18 mg/dL (Normal) Range: 7-18 GLU 118 mg/dL (Abnormal) Range: 70-110 Comments: Fasting Glucose result from 110 to <126 mg/dLsuggests IMPAIRED HOMEOSTASIS per A.D.A. criteria. 11-Xzg-02665:21 Amylase (34193) Comments: Test performed at:[facility] [address] [place] [address] WARD 46 U/L (Normal) Range: 25-115 :21 Lipase (85160) Comments: Test performed at:[facility] [address]ak[address] [place] [address] LIPASE 110 U/L (Normal) Range: 73-393 09-Frp-39032:35 Urinalysis, Office (25145) UA - LEUKOCYTE ESTERASE Trace (Normal) UA - NITRITE Negative (Normal) URINE UROBILINGN JANETH TIMED Normal mg/dL (Normal) UA - PROTEIN Negative mg/dL (Normal) UA - SPECIFIC GRAVITY 1.030 (Abnormal) UA - KETONES Negative mg/dL (Normal) UA - BILIRUBIN Negative (Normal) UA - GLUCOSE Negative (Normal) :31 Amylase Comments: Test performed at:[facility] [address] [place] [address] WARD 48 U/L (Normal) Range: 25-115 :31 CBC-Complete Blood Cnt No Diff Comments: Test performed at:[facility] [address] [place] [address] [id number] MPV 10.3 fL (Normal) Range: 6.2-12.0 PLT [...] :31 Comprehensive Metabolic Profil Comments: Test performed at:[facility] [address] [place] [address], [place] [address] GAP 6 (Normal) Range: 5-15 [...] A.D.A. criteria. :31 Lipase Comments: Test performed at:[facility] [address] [place] [address] [id number] LIPASE 122 U/L (Normal) Range: 70-290 :19 Urine Culture,Comprehensive Comments: PATIENT NOT FASTINGPERFORMED BY: [facility] Chgemx2182 [facility] [id number] Information: SRC:[facility] [id number] Result 1 MUG (Normal) Comments: Mixed urogenital flora1,000 Colonies/mL Urine Culture,Comprehensive Final report (Normal) :40 Urinalysis, Office (80813) UA - LEUKOCYTE ESTERASE Moderate (Normal) UA - NITRITE Negative (Normal) URINE UROBILINGN JANETH TIMED Normal mg/dL (Normal) UA - PROTEIN Negative mg/dL (Normal) UA - PH 6.5 (Normal) UA - BLOOD Negative (Normal) UA - SPECIFIC GRAVITY 1.020 (Normal) UA - KETONES Negative mg/dL (Normal) UA - BILIRUBIN Negative (Normal) UA - GLUCOSE Negative (Normal) 51-Kok-646705:06 PHOSPHORUS (21093) Comments: PATIENT NOT FASTINGPERFORMED BY: [address] [id number] Information: [id number] Phosphorus, Serum 3.9 mg/dL (Normal) Range: 2.5-4.5 85-Qru-632725:06 MAGNESIUM (60897) Comments: PATIENT NOT FASTINGPERFORMED BY: [address] [id number] Magnesium, Serum 2.2 mg/dL (Normal) Range: 1.6-2.6 90-Tgj-818411:06 CALCIUM, IONIZED (87040) Comments: PATIENT NOT FASTINGPERFORMED BY: [facility]6370 [facility] [id number] Calcium, Ionized, Serum 5.3 mg/dL (Normal) Range: 4.5-5.6 28-Cnn-012955:08 Thin Comments: Source.............Cervical;EndocervicalOther..............Post MenopausalNo. of containers..01 CYTYC Thin Prep VialPATIENT NOT FASTINGPERFORMED BY: [address] [place] 253 prep Pap [id number] Information: [id number] ([id number]) See Note NEGHPV (Normal) Comments: The HPV [...] for malignant neoplasm of the cervixKerwin Altamirano Folder Tier (ASCP) 80-Hoe-48795:22 Microscopic Examination Comments: PATIENT WAS FASTINGPERFORMED BY: [employer] Blbkxv4777 Adorno [facility] [id number] Bacteria None seen (Normal) Epithelial Cells (non renal) 0-10 {/hpf} (Normal) Range: 0 - 10 RBC 0-2 {/hpf} (Normal) Range: 0 - 2 WBC 0-5 {/hpf} (Normal) Range: 0 - 5 :22 CBC W/AUTO DIFF WBC Comments: copy to Dr. Madsen fax [phone]; PATIENT WAS FASTINGPERFORMED BY: [employer] Msvhdy9756 [facility] [id number] Information: [id number] (47298) Immature Grans (Abs) 0.0 {x10E3/uL} (Normal) Range: [...] 7.5 {x10E3/uL} (Normal) Range: 3.4-10.8 :22 PREALBUMIN (12139) Comments: PATIENT WAS FASTINGPERFORMED BY: [facility] [id number] Prealbumin 18 mg/dL (Abnormal) Range: 20-40 :22 URINALYSIS, W/ MICRO (18937) Comments: PATIENT WAS FASTINGPERFORMED BY: [facility] [id number] Microscopic Examination See below: (Normal) Comments: Microscopic was indicated and was performed. Nitrite, Urine Negative (Normal) Urobilinogen,Semi-Qn 0.2 mg/dL (Normal) Range: 0.0-1.9 Bilirubin Negative (Normal) Occult Blood Negative (Normal) Ketones Negative (Normal) Glucose Negative (Normal) Protein Negative (Normal) WBC Esterase Trace (Abnormal) Appearance Clear (Normal) Urine-Color Yellow (Normal) pH 6.5 (Normal) Range: 5.0-7.5 Specific Stratford 1.013 (Normal) Range: 1.005-1.030 :22 METABOLIC PANEL, COMPREHENSIVE Comments: PATIENT WAS FASTINGPERFORMED BY: [facility] CorporationAff[facility] [id number] (25785) ALT (SGPT) 7 [iU]/L (Normal) Range: 0-32 [...] Glucose, Serum 88 mg/dL (Normal) Range: 65-99 29-Zkp-45712:07 PREALBUMIN (30209) Comments: Forward to Dr Yvonne Madsen at fax phone at [address] [place] [address]. [place] [address]; PATIENT NOT FASTINGPERFORMED BY: [employer] Board [facility] Ddbkuo4525 [facility] [id number] Prealbumin 19 mg/dL (Abnormal) Range: 20-40 :07 CBC with manual diff (86494) Comments: Forward to Dr Yvonne Madsen at fax phone at [address] [facility] [place] [place] [address]; PATIENT NOT FASTINGPERFORMED BY: [employer] LabRoot Metricsrp Iebviv1802 [facility] [id number] Information: [id number] Immature Grans (Abs) 0.0 {x10E3/uL} (Normal) Range: [...] 3.77-5.28 WBC 7.7 {x10E3/uL} (Normal) Range: 3.4-10.8 0-Fhm-824080:09 URINE ERICA CULTURE-IDENTIFICATN Comments: PATIENT NOT FASTINGPERFORMED BY: [facility]CoV[facility])Jqwgyp7235 [facility] [id number] Information: [id number] (76572) Result 1 MUG (Normal) Comments: Mixed urogenital flora10,000-25,000 colony forming units per mL Urine Final report (Normal) Culture,Comprehensive :48 Urinalysis, Office (46347) UA - LEUKOCYTE ESTERASE Small (Normal) UA - NITRITE Negative (Normal) URINE UROBILINGN JANETH TIMED Normal mg/dL (Normal) UA - PROTEIN Negative mg/dL (Normal) UA - PH 7 (Normal) UA - BLOOD Negative (Normal) UA - SPECIFIC GRAVITY 1.020 (Normal) UA - KETONES Negative mg/dL (Normal) UA - BILIRUBIN Negative (Normal) UA - GLUCOSE Negative (Normal) 82-Eoi-096394:07 URINE ERICA CULTURE-IDENTIFICATN Comments: PATIENT NOT FASTINGPERFORMED BY: [employer] Bapblt8098 [place] 7 Star EntertainmentAff[facility] Health Partners [id number] Information: SRC: URINE [id number] (64858) Antimicrobial MIHEAD (Normal) Comments: S = Susceptible; [...] pneumoniae (Normal) Urine Final report Culture,Comprehensive (Normal) 77-Mas-76384:33 Urinalysis, Office (25050) UA - BILIRUBIN Negative (Normal) UA - BLOOD Non Hemolyzed Trace (Normal) UA - GLUCOSE Negative (Normal) UA - KETONES Negative mg/dL (Normal) UA - LEUKOCYTE ESTERASE Negative (Normal) UA - NITRITE Negative (Normal) UA - PH 7.0 (Normal) UA - PROTEIN Negative mg/dL (Normal) UA - SPECIFIC GRAVITY 1.015 (Normal) URINE UROBILINGN JANETH TIMED Normal mg/dL (Normal) 8-Abq-950249:01 URINE ERICA CULTURE-IDENTIFICATN Comments: PATIENT NOT FASTINGPERFORMED BY: [employer] Dexyye3941 Adorno Mayur Uniquoters LimitedC[facility] [id number] Information: [id number] (84965) Result 1 MUG (Normal) Comments: Mixed urogenital flora50,000-100,000 colony forming units per mL Urine Final report (Normal) Culture,Comprehensive 08-Nov-20129:00 Urinalysis, Office (92968) UA - BILIRUBIN Negative (Normal) UA - BLOOD Negative (Normal) UA - GLUCOSE Negative (Normal) UA - KETONES Negative mg/dL (Normal) UA - LEUKOCYTE ESTERASE Moderate (Normal) UA - NITRITE Negative (Normal) UA - PH 6.0 (Normal) UA - PROTEIN Negative mg/dL (Normal) UA - SPECIFIC GRAVITY 1.020 (Normal) URINE UROBILINGN JANETH TIMED Normal mg/dL (Normal) 16-Eqa-951744:41 Thin prep Pap Comments: Source.............Cervical;EndocervicalNo. of containers..01 CYTYC Thin Prep VialPATIENT NOT FASTINGPERFORMED BY: Lab[address] [id number] Information: [id number] ([id number]) Note: PAPSMR (Normal) Comments: The Pap smear [...] for deepika gnant neopla sm of the cervixRashawnsscelestino Christensen, Folder Tier (ASCP) 49-Jzs-823711:00 BILAT SCRN DIGITAL & CAD Radiology Report [...] suspiciousabnormality. Signed:Samuel Rhodes M.D.Oct at 1:41:11 PM [id number] Signed GP/GP If you are the referring physician and would like to consult with theradiologist who provided this interpretation, please contact Danie Goyal at [phone]. If this radiologist is unavailable, youwill be directed to another radiologist to assist. If you are a patient with a question regarding this report, pleasecont actyour referring physician directly. Professional Interpretation Provided By: [employer], Phone , These documents contain legally protected [...] 10/28/12 1346 Sign by: Samuel Rhodes MD 1-Ztv-921677:22 URINE ERICA CULTURE (JANETH Comments: PATIENT NOT FASTINGPERFORMED BY: [employer] [facility] Metrics Kpwcke1352Dynamic [facility] [id number] Information: SRC:UR [id number] COL COUNT) (31089) Result 1 BETAGB (Normal) Comments: Beta hemolytic [...] Final report (Normal) Culture,Comprehensive 14-Oct-20128:17 Urinalysis, Office (43940) UA - BILIRUBIN Negative (Normal) UA - BLOOD Non Hemolyzed Trace (Normal) UA - GLUCOSE Negative (Normal) UA - KETONES Negative mg/dL (Normal) UA - LEUKOCYTE ESTERASE Small (Normal) UA - NITRITE Negative (Normal) UA - PH 6.0 (Normal) Comments: 5.5 UA - PROTEIN Negative mg/dL (Normal) UA - SPECIFIC GRAVITY 1.025 (Normal) URINE UROBILINGN JANETH TIMED Normal mg/dL (Normal) 00-Baa-18138:12 URINE ERICA CULTURE-JANETH COL Comments: PATIENT NOT FASTINGPERFORMED BY: [facility] Eevmcd2766 [facility] [id number] Information: SRC:UR [id number] COUNT (25325) Result 1 MUG (Normal) Comments: Mixed urogenital floraGreater than 100,000 colony forming units per mL Urine Culture,Comprehensive Final report (Normal) 63-Mvu-31750:10 Urinalysis, Office (24310) UA - BILIRUBIN Negative (Normal) UA - BLOOD Negative (Normal) UA - GLUCOSE Negative (Normal) UA - KETONES Negative mg/dL (Normal) UA - LEUKOCYTE ESTERASE Small (Normal) UA - NITRITE Negative (Normal) UA - PH 7.0 (Normal) UA - PROTEIN Negative mg/dL (Normal) UA - SPECIFIC GRAVITY 1.015 (Normal) URINE UROBILINGN JANETH TIMED Normal mg/dL (Normal) 24-Ttm-575970:10 URINE ERICA CULTURE (JANETH Comments: PATIENT NOT FASTINGPERFORMED BY: [employer] [facility] 41st Parameter [facility] [id number] Information: SRC: [id number] COL COUNT) (56255) Result 1 BETAGB (Normal) Comments: Beta hemolytic [...] (CLSI 2011) Urine Final report (Normal) Culture,Comprehensive 50-Jjh-69399:48 Urinalysis, Office (51101) UA - BILIRUBIN Negative (Normal) UA - BLOOD Hemolyzed Small (Normal) UA - GLUCOSE Negative (Normal) UA - KETONES Small mg/dL (Normal) UA - LEUKOCYTE ESTERASE Large (Normal) UA - NITRITE Negative (Normal) UA - PH 6.0 (Normal) UA - PROTEIN Negative mg/dL (Normal) UA - SPECIFIC GRAVITY 1.025 (Normal) URINE UROBILINGN JANETH TIMED Normal mg/dL (Normal) 4-Hcc-367427:58 URINE ERICA CULTURE-IDENTIFICATN Comments: PATIENT NOT FASTINGPERFORMED BY: [facility] Trvzhi6682 [facility] [id number] Information: [id number] (35015) Result 2 BETAGB (Normal) Comments: Beta hemolytic [...] 800 Colonies/mL (Normal) Urine Final report (Normal) Culture,[facility] 3-Odq-332256:46 Urinalysis, Office (66604) UA - BILIRUBIN Negative (Normal) UA - BLOOD Non Hemolyzed Trace (Normal) UA - GLUCOSE Negative (Normal) UA - KETONES Negative mg/dL (Normal) UA - LEUKOCYTE ESTERASE Small (Normal) UA - NITRITE Negative (Normal) UA - PH 7.0 (Normal) UA - PROTEIN Negative mg/dL (Normal) UA - SPECIFIC GRAVITY 1.015 (Normal) URINE UROBILINGN JANETH TIMED Normal mg/dL (Normal) 49-Tmp-975041:00 URINE ERICA CULTURE-JANETH COL Comments: PATIENT NOT FASTINGPERFORMED BY: [facility] Mbgwkz6012 [facility] [id number] Information: SRC:UR [id number] COUNT (35350) Result 1 MUG (Normal) Comments: Mixed urogenital flora10,000-25,000 colony forming units per mL Urine Final report (Normal) Culture,Comprehensive 22-Ldu-905725:35 Urinalysis, Office (60001) UA - BILIRUBIN Negative (Normal) UA - BLOOD Negative (Normal) UA - GLUCOSE Negative (Normal) UA - KETONES Negative mg/dL (Normal) UA - LEUKOCYTE ESTERASE Trace (Normal) UA - NITRITE Negative (Normal) UA - PH 7.0 (Normal) UA - PROTEIN Negative mg/dL (Normal) UA - SPECIFIC GRAVITY 1.015 (Normal) URINE UROBILINGN JANETH TIMED 2 mg/dL (Normal) :38 CALCIFIDIOL (50093) VIT D 25 Comments: PATIENT WAS FASTINGPERFORMED BY: [employer] [facility] [id number] Vitamin D, 25-Hydroxy 37.7 ng/mL (Normal) Range: 30.0-100.0 Comments: Vitamin D deficiency has been defined by the [place] ofUniversity Hospitals St. John Medical Centercine and an Endocrine Society practice guideline as alevel of serum 25-OH vitamin D less than 20 ng/mL (1,2).The Endocrine Society went on to further define vitamin Dinsufficiency as a level between 21 and 29 ng/mL (2).1. IOM ([place] of Medicine). 2010. Dietary reference intakes for calcium and D. [place]: The National Academies Press.2. Aaron MF, Curry [place], Viet ALLISON, et al. Evaluation, treatment, and prevention of vitamin D deficiency: an Endocrine Society clinical practice guideline. JCEM. 2010; 96(7):1911-30. :38 Lipid Panel (27775) Comments: PATIENT WAS FASTINGPERFORMED BY: Run3D70 [facility] [id number] LDL/HDL Ratio 1.1 {ratio_units} (Normal) Range: 0.0-3.2 LDL Cholesterol Calc 81 mg/dL (Normal) Range: 0-99 VLDL Cholesterol Donovan 22 mg/dL (Normal) Range: 5-40 HDL Cholesterol 76 mg/dL (Normal) Comments: According to ATP-III Guidelines, HDL-C >59 mg/dL is considered anegative risk factor for CHD. Triglycerides 111 mg/dL (Normal) Range: 0-149 Cholesterol, Total 179 mg/dL (Normal) Range: 100-199 :38 CBC (Auto) (21364) Comments: PATIENT WAS FASTINGPERFORMED BY: [employer] [facility] [id number] Platelets 207 {x10E3/uL} (Normal) Range: 155-379 Comments: [...] 3.4-10.8 Comments: Please note reference interval change 23-Tgc-97042:38 Metabolic Panel, Comments: PATIENT WAS FASTINGPERFORMED BY: [facility]6370 [facility] [id number] Information: [id number] Comprehensive (47621) ALT (SGPT) 7 [iU]/L (Normal) Range: 0-32 [...] Glucose, Serum 86 mg/dL (Normal) Range: 65-99 55-Qri-99036:09 Urinalysis, Office (74260) UA - BILIRUBIN Negative (Normal) UA - BLOOD Negative (Normal) UA - GLUCOSE Negative (Normal) UA - KETONES Negative mg/dL (Normal) UA - LEUKOCYTE ESTERASE Trace (Normal) UA - NITRITE Negative (Normal) UA - PH 6.0 (Normal) UA - PROTEIN Negative mg/dL (Normal) UA - SPECIFIC GRAVITY 1.020 (Normal) URINE UROBILINGN JANETH TIMED Normal mg/dL (Normal) 75-Nej-50639:09 DEXA BONE DENSITY STUDY () Radiology Report See Note (Normal) Comments: PROCEDURE: [...] Rhodes M.D.November 01, 2011 at 10:15:09 AM [phone] Signed GP/GP If you are the referring phys ician and would like to consult with theradiologist who provided this interpretation, please contact Danie Goyal at [phone]. If this radiologist is unavailable, youwill be directed to a [facility] radiologist to assist. If you are a patient with a question regarding this report, pleasecontactyour referring physician directly. Professional Interpretation Provided By: [employer], Phone [phone], These documents contain legally protected and confidential [...] 30/01 1022 Sign by: Samuel Rhodes MD 64-Zhy-21395:07 CBC with manual diff Comments: PATIENT WAS FASTINGPERFORMED BY: [facility])Ayqzom1961 [facility] [id number] Information: [id number] (73735) Immature Grans (Abs) 0.0 {x10E3/uL} (Normal) Range: [...] 6.2 {x10E3/uL} (Normal) Range: 4.0-10.5 :07 CALCIFIDIOL (57294) VIT D 25 Comments: PATIENT WAS FASTINGPERFORMED BY: [facility]CoV[facility])Qabafm8894 [facility] [id number] Vitamin D, 25-Hydroxy 47.5 ng/mL (Normal) Range: 30.0-100.0 Comments: Vitamin D deficiency has been defined by the [place] ofUniversity Hospitals St. John Medical Centercine and an Endocrine Society practice guideline as alevel of serum 25-OH vitamin D less than 20 ng/mL (1,2).The Endocrine Society went on to further define vitamin Dinsufficiency as a level between 21 and 29 ng/mL (2).1. IOM ([place] of Medicine). 2010. Dietary reference intakes for calcium and D. [place]: The National Academies Press.2. Aaron MF, Curry EVANS, Viet ALLISON, et al. Evaluation, treatment, and prevention of vitamin D deficiency: an Endocrine Society clinical practice guideline. JCEM. 2010; 96(7):1911-30. :07 Metabolic Panel, Comprehensive Comments: PATIENT WAS FASTINGPERFORMED BY: [facility]Henry [facility]6370 [facility] [id number] (34064) ALT (SGPT) 7 [iU]/L (Normal) Range: 0-40 [...] Glucose, Serum 87 mg/dL (Normal) Range: 65-99 25-Cvc-32939:07 Lipid Panel (79792) Comments: PATIENT WAS FASTINGPERFORMED BY: [facility]6370 [facility] [id number] LDL/HDL Ratio 1.2 {ratio_units} (Normal) Range: 0.0-3.2 [...] 100-199 Comments: Please note reference interval change 98-Zip-128932:46 BILAT SCRN DIGITAL & CAD Radiology Report See Note (Normal) Comments: MAMMOGRAPHY - BILATERAL SCREENING REASON FOR EXAM: Female, 71 years old. Routine annual screeningexamination. PERTINENT HISTORY: Sister with breast cancer. TECHNIQUE: Digital examinat ion. Mediol ateral oblique (MLO) andcraniocaudad (CC) views of both breasts were obtained. CAD: CAD wasperformed on this study. COMPARISON: Comparison is made with prior examinations dated July and [facility] 2009. FINDINGS:The breast composition is heterogeneously dense. [...] Rhodes M.D.October 26, 2011 at 11:14:07 AM [phone] Signed GP/GP If you are the referring physician and would like to consult with ther adiologist who provided this interpretation, please contact Danie Goyal at [phone]. If this radiologist is unavailable, youwill be directed to another radiologist to assist. If you are a patient with a question regarding this report, pleasecontactyour referring physician directly. Professional Interpretation Provided By: [employer], Phone , These documen ts contain legally [...] 10/26/11 1121 Sign by: Samuel Rhodes MD 53-Tgh-221775:17 Thin prep Pap Comments: Source.............Cervical;EndocervicalNo. of containers..01 CYTYC Thin Prep VialPATIENT NOT FASTINGPERFORMED BY: [facility] Zvuxgykicy929 [facility] [place] [id number] Information: [id number] ([id number]) Note: PAPSMR (Normal) Comments: The Pap smear [...] neopla sm of the cervixElizabeth July Joe, Folder Tier (ASCP) 01-Mvt-374285:04 BILAT DIA DIGITAL & CAD Radiology Report [...] 08/03/10 1404 Sign by: Samuel Rhodes MD 54-Vnf-93982:52 UNILAT RT DIAG DIGITAL & CAD Radiology [...] Category 3: Probably Benign Finding - Initial Nyzhg-PztywjtsCsrxns-ri Suggested. A letter regarding these results will [...] Report See Note (Normal) Comments: Exam Number: [id number] CLINICAL:The patient is a 61 day old woman who is postmenopausal with pastuse of hormone replacement therapy. EXAMINATION:DUAL ENERGY X-RAY ABSORPTIOMETRY / DEXA. TECH NIQUE:Bone D ensity Measurements (BMD) of lumbar spine and bilateral hipswere obtained using a [employer] scanner.. COMPARISON:2001 at 2006 FINDINGS: Lumbar Spine [...] Foundation [email or web address] Reported By: JANNY SALEH M.D. 37-Kij-744929:00 Thin prep Pap Comments: Source.............Cervical;EndocervicalNo. of containers..01 CYTYC Thin Prep VialPATIENT NOT FASTINGPERFORMED BY: [facility] [address] [id number] Information: [id number] ([id number]) Note: PAPSMR (Normal) Comments: The Pap smear [...] MALIGNANCY.THIS SPECIMEN WAS RESCREENED PART OF OUR DOWEL POINTER PROGRAM.Satisfactory for evaluation. Endocervical and/or squamous metaplasticc ells (endoce rvical component) are present.V76.2 ; Screening for malignant neoplasm of the cervixKlaudia Nelson CytotechnologistNatalia Cutler, Supervisory Folder Tier (ASCP) 32-Nwk-78617:29 Metabolic Panel, Comments: PATIENT WAS FASTINGPERFORMED BY: [facility] Enpivk1967 [facility] [id number] Information: [id number] Comprehensive (31726) ALT (SGPT) 10 [iU]/L (Normal) Range: 0-40 [...] Glucose, Serum 87 mg/dL (Normal) Range: 65-99 08-Epf-02663:29 CALCIFIDIOL (75867) VIT D 25 Comments: PATIENT WAS FASTINGPERFORMED BY: [employer] [facility] Vwiflz3562 [facility] [id number] Vitamin D, 25-Hydroxy 25.2 ng/mL (Abnormal) Range: 32.0-100.0 Comments: Recent studies consider the lower limit of 32.0 ng/mL to be athreshold for optimal health.Alex MCKOY. J Nutr. 2004;135(2):317-22. :29 Lipid Panel (49401) Comments: PATIENT WAS FASTINGPERFORMED BY: LabCoV[facility])Nmiqdj5893 [facility] [id number] LDL Cholesterol Calc 104 mg/dL (Abnormal) Range: [...] With Differential/Platelet Comments: PATIENT WAS FASTINGPERFORMED BY: ENOVIXVirtua Mt. Holly ([facility]orial)Qdgkcr7048 [facility] [id number] Baso (Absolute) 0.0 {x10E3/uL} (Normal) Range: 0.0-0.2 [...] 11.7-15.0 WBC 7.2 {x10E3/uL} (Normal) Range: 4.0-10.5 29-Omm-77729:41 Comp. Metabolic Panel (14) Comments: PATIENT WAS FASTINGPERFORMED BY: [facility]CoV[facility])Ocownv9098 [facility] [id number] A/G Ratio 1.1 (Normal) Range: 1.1-2.5 Albumin, [...] Serum 85 mg/dL (Normal) Range: 65-99 If -Paraguayan >60 mL/min (Normal) Range: 60-128 Comments: Note: [...] With LDL/HDL Comments: PATIENT WAS FASTINGPERFORMED BY: [employer]70 [facility] [id number] Ratio Cholesterol, Total 210 mg/dL (Abnormal) Range: [...] Microscopic Examination Comments: PATIENT WAS FASTINGPERFORMED BY: Run3D70 [facility] [id number] Bacteria None seen (Normal) Crystal Type Amorphous Sediment (Normal) Crystals Present (Abnormal) Epithelial Cells (non renal) >10 {/hpf} (Abnormal) Range: 0 - 10 Mucus Threads Present (Abnormal) RBC 0-3 {/hpf} (Normal) Range: 0 - 3 WBC 11-30 {/hpf} (Abnormal) Range: 0 - 5 :41 Urinalysis, Routine Comments: PATIENT WAS FASTINGPERFORMED BY: [employer] [facility] [id number] Appearance Clear (Normal) Bilirubin Negative (Normal) Glucose Negative (Normal) Ketones Negative (Normal) Microscopic Examination See below: (Normal) Nitrite, Urine Negative (Normal) Occult Blood Negative (Normal) pH 7.5 (Normal) Range: 5.0-7.5 Protein Negative (Normal) Specific [place] 1.018 (Normal) Range: 1.005-1.030 Urine-Color Yellow (Normal) Urobilinogen,Semi-Qn 0.2 mg/dL (Normal) Range: 0.0-1.9 WBC Esterase 3+ (Abnormal) :13 KNEE,4 OR MORE VIEWS Radiology Report See Note (Normal) Comments: Exam Number: [id number] LEFT KNEE - VIEWS STATEMENTPain. PRIOR STUDIESNone. No acute fracture or joint dislocation is shown. There is no jointeffusion. No suspicious bone lesions or pathologic calcific ations. There is mild narrowing over the medial joint compartment. IMPRESSIONMild narrowing of the medial joint compartment, otherwise negativeleft knee. Reported By: GRACE CORDERO M.D. 4-Tsd-350389:55 Pap Lb, rfx HPV Comments: Source.............Cervical;EndocervicalNo. of containers..01 CYTYC Thin Prep VialPERFORMED BY: LabCo[address] [id number] all pth . . (Normal) DIAGNOSIS: SPRCS (Normal) Comments: NEGATIVE FOR INTRAEPITHELIAL LESION AND MALIGNANCY.Satisfactory for evaluation. Endocervical and/or squamous metaplasticcells (endocervical component) are present.V72.31 ; Routine gynecolog ical examina Dayna Rasmussen Folder Tier (ASCP) Note: PAPSMR (Normal) Comments: The Pap [...] Report See Note (Normal) Comments: Exam Number: [id number] BONE DENSITOMETRY TECHNIQUE Bone densitometry of the [...] density is measured at 6.2% greater than ov0310. The T-value of the left femoral neck [...] cervix Planned Observations CBC WITH MANUAL DIFF ([id number])Indication: Impaired fasting glucose On: 16-Vof-035502:39 Request Metabolic Panel, Comprehensive ([id number])Indication: Hyperkalemia On: 32-Oil-459609:32 Request Comments: re check in 4 weeks POTASSIUM URINE ([id number])Indication: Hyperkalemia On: 09-Ibg-451123:43 Request Comments: re check in 4 weeks CBC with auto diff ([id number])Indication: Abdominal pain On: :03 Request Metabolic Panel, Comprehensive ([id number])Indication: Abdominal pain On: :03 Request Lipase ([id number])Indication: Abdominal pain On: :28 Request Amylase ([id number])Indication: Abdominal pain On: :28 Request CBC (Auto) ([id number])Indication: Abdominal pain On: :27 Request Metabolic Panel, Comprehensive ([id number])Indication: Abdominal pain On: :27 Request URINE ERICA CULTURE-JANETH COL COUNT ([id number])Indication: UTI (lower urinary tract infection) On: :50 Request URINE ERICA CULTURE-JANETH COL COUNT ([id number])Indication: UTI (lower urinary tract infection) On: :40 Request URINE ERICA CULTURE-IDENTIFICATN ([id number])Indication: Urinary frequency On: :47 Request Comments: recheck after finish antibiotic URINALYSIS ([id number])Indication: Urinary frequency On: :47 Request Thin prep Pap ([id number])Indication: Screening for malignant neoplasm of cervix On: :20 Request URINALYSIS ([id number])Indication: Screening for malignant neoplasm of cervix On: 3-Ilw-696453:19 Request URINALYSIS ([id number])Indication: Screening for malignant neoplasm of cervix On: :19 Request CBC (Auto) ([id number])Indication: Screening for malignant neoplasm of cervix On: :18 Request Metabolic Panel, Comprehensive ([id number])Indication: Screening for malignant neoplasm of cervix On: :18 Request Lipid Panel ([id number])Indication: Screening for malignant neoplasm of cervix On: :18 Request Planned Encounters Medical; [facility] 6 Month Fu - On: 23-May-2018 8:45 [facility] Raine Gomez MD, MD, Dana M Planned Procedures Bone Density StudyBy: Jason GARRETT, On: 08-Nov-2017 Intent Raine Gross MD Comments: schedule after 11-15-17 MAMMOGRAM BREAST BILATERAL SCREENING On: 08-Nov-2017 Intent DIGITAL ([id number])By: Raine Gomez MD Comments: schedule after 11-16-17 M Raine Gomez MD INJECTION, PROLIA ([id number])By: Visit, On: 01-Aug-2017 Intent Nurse Comments: pt own med lot [id number] exp 10/25 given sq lt arm Flu Vaccine (Quadrivalent) [id number]: On: 23-Nov-2016 Intent Raine Gomez MD, MD, Dana Comments: Lot #[id number]-07/23/17ite-L dltd, IMDose prefilled syringegiven by:MLong, LPNVIS and ABN signed M Ear Irrigation ([id number])By: Jason On: 01-Sep-2016 Intent Raine GARRETT MD, Dana M Comments: Ear Irrigation performed on:bilateralAmount/color removed cerumen: large amountOUtcome:clear and tolerated Wax CurettesBy: Raine Gomez MD On: 01-Sep-2016 Intent Raine Gomez MD SCREENING DIGITAL TOMOSYNTHESIS OF On: 01-Sep-2016 Intent BREAST ([id number])By: Raine Gomez MD Comments: 10-22 Raine Gomez MD INJECTION, PROLIA ([id number])By: Visit, On: 01-Aug-2016 Intent Nurse Comments: [id number]/prefilled syringeR arm, IMML Long, VICE PRESIDENT OF COMPLIANCE Flu Vaccine (Quadrivalent) [id number]: On: 20-Oct-2015 Intent Raine Gomez MD, MD, Dana Comments: FLUlot: [id number]:08/04/16site:Lt deltoidroute:IMdose:.5mlDEMICK, MA M Wax CurettesBy: Raine Gomez MD On: 19-Aug-2015 Intent Raine Gomez MD Ear Irrigation ([id number])By: Jason On: 19-Aug-2015 Intent Raine GARRETT MD, Dana M DEXA SCAN AXIAL SKELETON ([id number])By: On: 19-Aug-2015 Intent Raien Gomez MD, MD, Dana Comments: after 10-21 M MAMMOGRAM, SCREENING, BOTH BREAST On: 19-Aug-2015 Intent ([id number])By: Raine Gomez MD Comments: after 9-16 due Raine Gomez MD INJECTION, PROLIA ([id number])By: Jason On: 12-Aug-2015 Intent Raine GARRETT MD, Dana M Comments: prolialot:[id number]:ite:lt subqroute:subqdose:60mgD.KP Tian MAMMOGRAM, SCREENING, BOTH BREAST On: 28-May-2015 Intent ([id number])By: Raine Gomez MD, MD, Dana M DEXA SCAN AXIAL SKELETON ([id number])By: On: 28-May-2015 Intent Raine Gomez MD, MD, Dana M INJECTION, PROLIA ([id number])By: Jason On: 01-Feb-2015 Intent Raine GARRETT MD, Dana M Comments: lot: [id number]: ite/route: L arm/SQamt: prefilled syringeVIS signed when applicableAscension Providence Hospitaldeniz [facility] ADMINISTRATION OF INFLUENZA VIRUS On: 02-Nov-2014 Intent VACCINE (G0008)By: Raine Gomez MD, MD, Dana M Toradol Injection, 30 mg ([id number])By: On: 03-Sep-2014 Intent Raine Gomez MD, MD, Dana Comments: Lot:[id number]:04/05/2016Dose:30mgRoute:imSite:r hipGiven By:JKMMARTIN Dunlap Phenergan Injection, up to 50 mg On: 03-Sep-2014 Intent (J2550)By: Raine Gomez MD Comments: 25 mg IV Raine Gomez MD INFUSION, NORMAL SALINE SOLUTION , On: 03-Sep-2014 Intent 1000 CC (Special Coverage Comments: IV Therapy fxfdclyye10O, 1 inchSite: L acTolerated: moderately wellno redness or swelling, no s/s infiltrationER, Edgarergan push - DB, [id number] Instructions Apply. See MCM: 2049) ([id number])By: Raine Gomez MD, MD, Dana M Nuclear Medicine - HIDA w/CPKBy: On: 03-Sep-2014 Intent Raine Gomez MD, MD, Dana M INJECTION, PROLIA ([id number])By: Juan Carlos Shah: 30-Jul-2014 Intent Aura Comments: lot:[id number]:10.17route:SQdose:60mgSite:L armgiven by: Michelle Shah CMA Ultrasound - PelvisBy: Jason GARRETT, On: 24-Jun-[address] - Abdomen & Pelvis (IV Contrast On: 12-Jun-2014 Intent Needed)By: Raine Gomez MD, MD, Dana M Ultrasound - GallbladderBy: Ciesa On: 08-Jun-2014 Intent INVENTORY CONTROL ASSISTANTKarla INJECTION, PROLIA ([id number])By: Anjum On: 03-Feb-2014 Intent Yesika DE PAZ Comments: lot [id number] 6.17left BALDEV Mckeon ADMINISTRATION OF INFLUENZA VIRUS On: 07-Nov-2013 Intent VACCINE (G0008)By: Visit, Nurse Comments: Lot #[id number]-L dltd, IMDose prefilled syringegiven by:BALDEV TobarVIS and ABN signed FLU VAC, SPLIT, >3 YEARS, INTRAMUSC On: 07-Nov-2013 Intent ([id number])By: Visit, Nurse Bone Density StudyBy: Jason GARRETT, On: 30-Oct-2013 Intent Raine Gross MD BILATERAL MAMMOGRAMS ([id number])By: On: 30-Oct-2013 Intent Raine Gomez MD, MD, Dana M Radiology - ChestBy: Jason GARRETT, On: 27-Oct-2013 Intent Raine Gross MD EKG ([id number])By: Raine Gomez MD On: 27-Oct-2013 Intent Raine [...] Intent ()By: Raine Gomez MD Comments: Lot #:[id number] date:mount given:2ml Route: intra articular Site given:left knee Given By: Raine Honeycutt MD DRAIN/INJECT MAJOR JOINT OR BURSA On: 13-May-2013 Intent ([id number])By: Raine Gomez MD, MD, Dana M Kenalog Injection, 10 mgm On: 03-Feb-2013 Intent (J3301)By: Raine Gomez MD Comments: kenalog 1 continue current treatment plan llot # [id number] 06-17, bupivacaine lot#[id number] Raine Gomez MD Kenalog [...] SPLIT, >3 YEARS, INTRAMUSC On: 28-Oct-2012 Intent ([id number])By: Lula Flores Pap Smear, Medicare (Q0091)By: On: 28-Oct-2012 Intent Raine Gomez MD, MD, Dana M Pelvic and Breast, Medicare On: 28-Oct-2012 Intent (G0101)By: aRine Gomez MD, MD, Dana M MAMMOGRAM, SCREENING, BOTH BREASTS On: 28-Oct-2012 Intent ([id number])By: Raine Gomez MD, MD, Dana M Kenalog [...] Dana M SPECIMEN HANDLING/TRANSPORT On: 23-Jul-2012 Intent ([id number])By: Sonia Phillips LPN DXA, BONE DENSITY, AXIAL SKELETON On: 26-Oct-2011 Intent ([id number])By: Raine Gomez MD, MD, Dana M MAMMOGRAM, SCREENING, BOTH BREASTS On: 26-Oct-2011 Intent ([id number])By: Raine Gomez MD, MD, Dana M EKG ([id number])By: Raine Gomez MD On: 26-Oct-2011 Intent Raine Gomez MD Comments: see scanned document of test done to see results reviewed today with patient FLU VAC, SPLIT, >3 YEARS, INTRAMUSC On: 26-Oct-2011 Intent ([id number])By: DANIAL Mayorga Comments: Lot #:[id number] date:ount given:prefilled syringeRoute: IMSite given:Given by: VIS signed ADMINISTRATION OF INFLUENZA VIRUS On: 26-Oct-2011 Intent VACCINE (G0008)By: DANIAL Mayorga Breast Diagnostic - BilateralBy: On: 03-Apr-2011 Intent Raine Gomez MD, MD, Dana M Breast Diagnostic - BilateralBy: On: 04-Aug-2010 Intent Raine Gomez MD, MD, Dana M PNEUM VAC ADLT/IMUMNOSPR, SBC/INTRM On: 06-Jun-2010 Intent ([id number])By: Raine Gomez MD Comments: lot # [id number]- 04/09/1172gdrp-CIOWgcwbz-IYswae- 0.5 ML tolerated well Raine Gómez LPN, MD TD Injection , IM ([id number])By: On: 06-Jun-2010 Intent Raine Gomez MD, MD, Dana Comments: lot # [id number]- 12/21/1133bjba-DRJBeujgl-CBygbw- 0.5ML tolerated well Katie Dunlap ADMINISTRATION OF PNEUMOCOCCAL On: 06-Jun-2010 Intent VACCINE (G0009)By: Raine Gomez MD, MD, Dana M Inhaler Demonstration ([id number])By: On: 30-May-2010 Intent Karla Tabares CNP Pulse Oximetry (17352)By: Rayshawn KUNZ, On: 30-May-2010 Intent Shira Aerosol Treatment ([id number])By: Rayshawn On: 30-May-2010 Intent Karla KUNZ Eprescribed [...] MAMMOGRAM, SCREENING, BOTH BREASTS On: 22-Oct-2009 Intent (84061)By: Raine Gomez MD, MD, Dana M DXA, BONE DENSITY, AXIAL SKELETON On: 22-Oct-2009 Intent (84069)By: Raine Gomez MD, MD, Dana M FLU VAC, SPLIT, >3 YEARS, INTRAMUSC On: 05-Nov-2008 Intent ([id number])By: Mast Amanda ROBERTS ADMINISTRATION OF INFLUENZA VIRUS On: 05-Nov-2008 Intent VACCINE (G0008)By: Mast ARMANDO, Amanda ADMINISTRATION OF PNEUMOCOCCAL On: 12-Sep-2007 Intent VACCINE (G0009)By: Raine Gomez MD, MD, Dana M PNEUM VAC ADLT/IMUMNOSPR, SBC/INTRM On: 12-Sep-2007 Intent (11266)By: Raine Gomez MD, MD, Dana M ELECTROCARDIOGRAM, COMPLETE (ECG) On: 12-Sep-2007 Intent ([id number])By: Raine Gomez MD, MD, Dana M Pulse Oximetry ([id number])By: Jason On: 12-Sep-2007 Intent Raine GARRETT MD, Dana M Pap Smear, Medicare (Q0091)By: On: 12-Sep-2007 Intent Raine Gomez MD, MD, Raine Dunlap Pelvic and Breast, Medicare On: 12-Sep-2007 Intent (G0101)By: Raine Gomez MD, MD, Dana M MAMMOGRAM, SCREENING, BOTH BREASTS On: 12-Sep-2007 Intent ([id number])By: Raine Gomez MD, MD, Dana M Bone Density StudyBy: Jason GARRETT, On: 26-Jun-2006 Intent Raine Gross MD MAMMOGRAM, SCREENING, BOTH BREASTS On: 26-Jun-2006 Intent ([id number])By: Raine Gomez MD, MD, Dana M Pap Smear, Medicare (Q0091)By: On: 26-Jun-2006 Intent Raine Gomez MD, MD, Dana M Pelvic and Breast, Medicare On: 26-Jun-2006 Intent (G0101)By: Raine Gomez MD, MD, Dana M Planned Medications INFUSION, NORMAL SALINE SOLUTION , 1000 CC Ordered: 03-Sep-2014 Pending Raine Gomez MD, MD, Dana M INJECTION, KETOROLAC TROMETHAMINE, PER 15 MG Ordered: 03-Sep-2014 Pending Raine Gomez MD, MD, Dana M INJECTION, PROLIA Ordered: 03-Feb-2014 Pending Slarb VICE PRESIDENT OF COMPLIANCE, Yesika INJECTION, PROLIA Ordered: 12-Aug-2015 Pending Jason GARRETT, Raine Gomez MD, Raine Dunlpa INJECTION, PROLIA Ordered: 01-Feb-2015 Pending Jason GARRETT, [...] The patient does have durable power of head of partner development and living will. The patient has noticed [...] The patient does have durable power of head of partner development and living will. The patient has noticed nothing from the geriatic depression scale. Other providers contributing to the patient's care are other: (Dr Membreno [place]Encounter Diagnosis: Annual Medicare Physical (V70.0) Comprehensive Internal [...] (10 End: 27-Oct-2013 11: Dr. Sonny [place], [place] [phone]) . There have been no problems with [...] cough little with some sputum. started in [place] with the allergies. not on antihsitamineEncounter Diagnosis: [...] The patient does have durable power of head of partner development and living will. The patient has noticed [...]
--- OUTSIDE RECORDS SUMMARY | 2018-02-13 03:57 | XMS RPT_ITS | Continuity of Care Document ---
:1940 Author Organization [facility] Address [address] [facility] [address] [place] [address] Phone Care Team Providers Name Role Phone [...] are up to date amita check at [facility] for prevnar. dental and eye 2018, 6CIT=, [...] End : 07-Aug-2016 Inactive Comments:03-30-16 called into [facility] in [place] [phone] UTI KETEK, 400MG (Oral Tablet) 2 (two) [...] : 12-Apr-2017 Inactive Comments:dispense one pack ZOSTAVAX, 37763GXE/0.65ML (Subcutaneous Solution Reconstituted) 1 For Solution once [...] Comments: saw Dr. madsen and minerva jackson - Status: Inactive as of 14-Mar-2016 Knee pain [...] 10-Sep-2014 Procedures Procedure Dates Details COLONOSCOPY, DIAGNOSTIC (27724) Completed Oct-2005 Comments: adenoma, 11-29-15 Last Pap Smear, Date Completed 25-Aug-2005 left knee replacement 11-24-13 Completed Date Value Details 02-Jan-2018 DIAG MAMM W/CAD, UNILAT Result: Comments: See Note; NOTES: [facility] Imaging Services [address] [place] [address] DIAG MAMM W/CAD, UNILAT MR#: [id number] Acct: [id number] Name: ARIEL MATA Rep #: [id number] : 1940 F 77 From: Samuel Rhodes MD PCP: Raine Gomez MD Status: REG CLI Study: DIAG MAMM W/CAD, UNILAT Date of Exam: 01/02/18 Exam# [id number] Ordering Dr: Raine Gomez MD MAMMOGRAPH Y [...] Samuel Rhodes MD at 14:50 EST Tel [phone], Service support , CC: Raine Gomez MD Zinc Chloride Operator: Signed 01-Jan-2018 Dexa Bone Density Study Result: Comments: See Note; NOTES: [facility] Imaging Services [address] [place] [address] 239[address] Dexa Bone Density Study MR#: [id number] Acct: [id number] Name: ARIEL MATA Rep #: [id number] : 1940 F 77 From: Samuel Rhodes MD PCP: Raine Gomez MD Status: REG CLI Study: Dexa Bone Density Study Date of Exam: 01/01/18 Exam# [id number] Ordering Dr: Raine Gomez MD STUDY: JUANJOSE [...] Samuel Rhodes MD at 9:33 EST Tel [phone], Service support , CC: Raine Gomez MD Zinc Chloride Operator: Signed 01-Jan-2018 SCREENING MAMM (CAD), BILAT Result: Comments: See Note; NOTES: [facility] Imaging Services [address] [facility] [place] [address] SCREENING MAMM (CAD), BILAT MR#: [id number] Acct: [id number] Name: ARIEL MATA Rep #: : 1940 F 77 From: Samuel Rhodes MD PCP: Raine Gomez MD Status: REG CLI Study: SCREENING MAMM (CAD), BILAT Date of Exam: 01/01/18 Exam# [id number] Ordering Dr: Raine Gomez MD MA MMOGRAPHY [...] delay biopsy of a clinically suspicious abnormality. [id number] Electronically Signed: Tyree Rhodes MD at 14:24 EST Tel [phone], Service support , CC: Raine Gomez MD Zinc Chloride Operator: Signed 16-Nov-2016 SCREENING MAMM (CAD), BILAT Result: Comments: See Note; NOTES: [facility] Imaging Services [address] [place] [address] SCREENING MAMM (CAD), BILAT MR#: [id number] Acct: [id number] Name: ARIEL MATA Rep #: [id number] : 1940 F 76 From: Samuel Rhodes MD PCP: Raine Gomez MD Status: REG CLI Study: SCREENING MAMM (CAD), BILAT Date of Exam: 11/16/16 Exam# [id number] Ordering Dr: Raine Gomez MD M AMMOGRAPHY [...] delay biopsy of a clinically suspicious abnormality. [id number] Electronically Signed: Samuel Rhodes MD at 13:03 EDT Tel [phone], Service support , CC: Raine Gomez MD Zinc Chloride Operator: Signed 16-Nov-2015 Bilat Scrn Digital AND CAD Result: Comments: See Note; NOTES: [facility] Imaging Services [address] [place] [address] 36347 Verdana 4d Bilat Scrn Digital AND CAD MR#: [id number] Acct: [id number] Name: ARIEL MATA Rep #: [id number] : 1940 F 75 From: Kiara Neves MD PCP: Raine Gomez MD Status: REG CLI Study: Bilat Scrn Digital AND CAD Date of Exam: 11/16/15 Exam# [id number] Ordering Dr: Raine Gomez MAMMOGRAPHY - BILATERAL [...] delay biopsy of a clinically suspicious abnormality. [id number] Electronically Signed: Kiara Neves MD at 15:55 EDT Tel , Service support , CC: Raine Gomez MD Zinc Chloride Operator: Signed 16-Nov-2015 Bilat Scrn Digital AND CAD Result: Comments: See Note; NOTES: [facility] Imaging Services [address] [place] [address] Verdana 4d Bilat Scrn Digital AND CAD MR#: [id number] Acct: [id number] Name: ARIEL MATA Rep #: [id number] : 1940 F 75 From: Kiara Neves MD PCP: Raine Gomez MD Status: REG CLI Study: Bilat Scrn Digital AND CAD Date of Exam: 11/16/15 Exam# [id number] Ordering Dr: Raine Gomez ADDENDUM by Kiara Neves MD on 11/18/15 at 1615 HPBI/Bilat Scrn Digital AND CAD 11/18/15 1622 Date cc: Raine Gomez MD * Signed ADDENDUM by Kiara Neves MD on 11/18/15 at 1615 ADDENDUM COMPARISON: Mammograms from November 03, 2014 and October 30 4. Electronically Signed: Kiara Neves MD at 16:15 EDT Tel , Service support [phone], 11/18/15 6518 Date cc: Raine Gomez MD * Meche [...] delay biopsy of a clinically suspicious abnormality. [id number] Electronically Signed: Kiara Neves MD at 15:55 EDT Tel , Service support , CC: Raine Gomez MD Zinc Chloride Operator: Signed 16-Nov-2015 Dexa Bone Density Study (HP) Result: Comments: See Note; NOTES: [facility] Imaging Services [address] [place] [address] Verdana 4d Dexa Bone Density Study (HP) MR#: [id number] Acct: [id number] Name: DANG MATA Rep #: [id number] : 1940 F 75 From: Samuel Rhodes MD PCP: Raine Gomez MD Status: [facility] CL Study: Dexa Bone Density Study (HP) Date of Exam: 11/16/15 Exam# [id number] Ordering Dr: Raine Ruelas i, MD STUDY: [...] Samuel Rhodes MD at 12:41 EDT Tel [phone], Service support [phone], CC: Raine Gomez MD Zinc Chloride Operator: Signed 03-Nov-2014 Bilat Scrn Digital AND CAD Result: Comments: See Note; NOTES: [facility] Imaging Services [address] [place] [address] Breast Imaging Report MR#: [id number] Acct: [id number] Name: ARIEL MATA Rep #: [id number] : 1940 F 74 From: Samuel Rhodes MD PCP: Raine Gomez MD Status: REG CLI Study: Bilat Scrn Digital AND CAD Date of Exam: 11/03/14 Exam# [id number] Ordering Dr: Raine Gomez MD MAMMOGRAPHY - [...] Samuel Rhodes MD at 9:32 EDT Tel [phone], Service support [phone], CC: Raine Gomez MD Zinc Chloride Operator: Signed 02-Nov-2014 FLU VAC, SPLIT, >3 YEARS, INTRAMUSC (35023) Comments: Lot:[id number]:06/20Dose:0.5mLRoute:IMSite:L DltdGiven By:ENDY signed Result: Comments: FLU SHOTlot: [id number]: 5dose:.5 mlSite:LT armRoute: IMDSma Kathy 21-Sep-2014 Upper GI/w Small Bowel Result: Comments: See Note; NOTES: [facility] Imaging Services [address] [place] [address] Radiology Report MR#: [id number] Acct: [id number] Name: ARIEL MATA Rep #: [id number] : 1940 F 74 From: Samuel Rhodes MD PCP: Raine Gomez MD Status: REG CLI Study: Upper GI/w Small Bowel Date of Exam: 09/21/14 Exam# [id number] Ordering Dr: Ronna Colindres MD STUDY: AIR-CONTRAST UPPER GI SERIES AND SMALL BOWEL FOLLOW-THROUGH EXAMINATION. REASON FOR EXAM: Female, 74 years old. Abdominal pain and history of prior intestinal obstruction. 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 Following this, the patient ingested barium. Images of the esophagus, stomach and duodenum were obtained. Following this, a [facility] l bowel follow-through examination was performed. COMPARISON: None. FINDINGS: On the woodworking shop laborer film, a moderate amount of fecal material [...] Samuel Rhodes MD at 10:53 EDT Tel [phone], Service support [phone], RAD/Upper GI/w Small Bowel IMPRESSION: Unremarkable examination . Electronically Signed: Samuel Rhodes MD at 10:53 EDT Tel [phone], Service support [phone], CC: Raine Gomez MD; Ronna Colindres MD Zinc Chloride Operator: Signed 11-Sep-2014 Emergency Department Summary Result: Comments: See Note; NOTES: [facility] Medical Records Department [address] [place] [address] Emergency Department Summary MR#: [id number] Acct: [id number] Name: ARIEL MATA Rep #: [id number] : 1940 74 From: Tomy Ashton DO [...] she was seen at a hospital in [place], was started on some antibiotics and then [...] condition. Tomy Ashton DO T: NTS JOB: [id number] 09/11/14 1507 <Electronically signed by Tomy Ashton DO> Date Tomy Ashton DO CC: Raine Gomez MD Date Dictated: 09/04/14147 Date Transcribed: 09/04/14147 Zinc Chloride Operator: Signed 03-Sep-2014 Abdomen/Pelvis WITH Contrast Result: Comments: See Note; NOTES: [facility] Imaging Services [address] [place] [address] 10893 CAT Scan Report MR#: [id number] Acct: [id number] Name: ARIEL MATA Rep #: [id number] : 1940 F 74 From: Daniel Wilder MD PCP: Raine Gomez MD Status: REG ER Study: Abdomen/Pelvis WITH Contrast Date of Exam: 09/03/14 Exam# [id number] Ordering Dr: Tomy AshtonDY: CT ABDOMEN AND [...] at 1:35 EDT Tel , Service support [phone], CC: Raine Gomez MD; Tomy Ashton DO Zinc Chloride Operator: Signed 03-Sep-2014 Hepatobilliary Imaging Result: Comments: See Note; NOTES: [facility] Imaging Services [address] [place] [address] Nuclear Medicine Report MR#: [id number] Acct: [id number] Name: ARIEL MATA Jewel Rep #: [id number] : 1940 F 74 From: Thierno Pineda DO PCP: Raine Gomez MD Status: REG CLI Study: Hepatobilliary Imaging Date of Exam: 09/03/14 Exam# [id number] Ordering Dr: Raine Gomez MD CL INICAL: [...] Thierno Pineda DO at 12:38 EDT Tel [phone], Service support [phone], CC: Raine Gomez MD Zinc Chloride Operator: Signed 25-Jun-2014 Pelvic (Non ) Result: Comments: See Note; NOTES: [facility] Imaging Services [address] [place] [address] Ultrasound Report MR#: [id number] Acct: [id number] Name: ARIEL MATA Rep #: [id number] : 1940 F 74 From: Shilo Spencer DO PCP: Raine Gomez MD Status: REG CLI Study: Pelvic (Non ) Date of Exam: 06/25/14 Exam# [id number] Ordering Dr: Raine Gomez MD STUDY: ULTR [...] Shilo Spencer DO at 17:10 EDT Tel [phone], Service support [phone], CC: Raine Gomez MD Zinc Chloride Operator: Signed 12-Jun-2014 Abdomen/Pelvis WITH Contrast Result: Comments: See Note; NOTES: [facility] Imaging Services [address] [place] [address] CAT Scan Report MR#: [id number] Acct: [id number] Name: ARIEL MATA Rep #: [id number] : 1940 F 74 From: Shilo Spencer DO PCP: Raine Gomez MD Status: REG CLI Study: Abdomen/Pelvis WITH Contrast Date of Exam: 06/12/14 Exam# [id number] Ordering Dr: Raine Gomez MD STUDY: CT [...] Shilo Spencer DO at 11:18 EDT Tel [phone], Service support [phone], CC : Raine Gomez MD Zinc Chloride Operator: Signed 09-Jun-2014 Gallbladder Result: Comments: See Note; NOTES: [facility] Imaging Services [address] [place] [address] Ultrasound Report MR#: [id number] Acct: [id number] Name: ARIEL MATA Rep #: [id number] : 1940 F 74 From: Samuel Rhodes MD PCP: Raine Gomez MD Status: REG CLI Study: Gallbladder Date of Exam: 06/09/14 Exam# [id number] Ordering Dr: Raine Gomez MD STUDY: ABDOMINA [...] Samuel Rhodes MD at 10:36 EDT Tel [phone], Service support [phone], CC: Raine Gomez MD Zinc Chloride Operator: Signed 11-Nov-2013 Dexa Bone Density Study () Result: Comments: See Note; NOTES: [facility] Imaging Services [address] [place] [address] Bone Density Report MR#: [id number] Acct: [id number] Name: MATAARIEL Jewel Rep #: [id number] : 1940 F 73 From: Samuel Rhodes MD PCP: Raine Gomez MD Status: [facility] Study: Dexa Bone Density Study (HP) Date of Exam: 11/11/13 Exam# [id number] Ordering Dr: Raine Gomez MD STUDY: DUAL [...] Samuel Rhodes MD at 13:40 EDT Tel [phone], Service support [phone], CC: Raine Gomez MD Zinc Chloride Operator: Signed 30-Oct-2013 Fernando Briones Digital & CAD Result: Comments: See Note; NOTES: [facility] Imaging Services [address] [place] [address] Breast Imaging Report MR#: [id number] Acct: [id number] Name: ARIEL MATA Rep #: [id number] : 1940 F 73 From: Samuel Rhodes MD PCP: Raine Gomez MD Status: REG CLI Exam# [id number] Ordering Dr: Raine Gomez MD MAMMOGRAPHY - [...] Rhodes MD at 12:50 EDT Tel [phone], Service support [phone], CC: Raine Gomez MD Zinc Chloride Operator: Signed 27-Oct-2013 Chest PA and Lateral Result: Comments: See Note; NOTES: [facility] Imaging Services [address] [place] [address] Radiology Report MR#: [id number] Acct: [id number] Name: ARIEL MATA Rep #: [id number] : 1940 F 73 From: New Reyna PCP: Raine Gomez MD Status: REG CLI Study: Chest PA and Lateral Date of Exam: 10/27/13 Exam# [id number] Ordering Dr: Raine Gomez MD STUDY: X-RAY [...] Jolanta Reyna MD at 7:53 EDT Tel [phone], Service support [phone], RAD/Chest PA and Lateral IMPRESSION: No acute cardiopulmonary disease. Elec tronically Signed: New Reyna MD at 7:53 EDT Tel [phone], Service support [phone], CC: Raine Gomez MD Zinc Chloride Operator: Signed Immunization Name Dates Details Influenza (3 years and up) on: 05-Nov-2008 Pneumococcal (2 years and up) on: 12-Sep-2007 Family History Unknown Family Member Name Dates Details Daughter 1 Comments: [place] teaching Status: Active Daughter 2 Status: Active Father Comments: prostate cancer, [place] later in life Status: Active Mother Comments: [...] Active Living Situation: Lives alone. Comments: , sikh goer Fabiola important in life. second boyfriedn [...] Height 0 in Head Circumference 0.00 cm 49-Eks-742259:05 Pulse 60 /min Comments: Pattern: Regular Respiration [...] Microscopic Examination Comments: PATIENT NOT FASTINGPERFORMED BY: MtoV [facility] [id number] Bacteria Few (Normal) Mucus Threads Present (Normal) Cast Type Hyaline casts (Normal) Casts Present {/lpf} (Abnormal) Epithelial Cells (non renal) >10 {/hpf} (Abnormal) Range: 0 - 10 RBC 0-2 {/hpf} (Normal) Range: 0 - 2 WBC 6-10 {/hpf} (Abnormal) Range: 0 - 5 :40 URINALYSIS (13630) Comments: PATIENT NOT FASTINGPERFORMED BY: MtoV [employer] [facility] [id number] Microscopic Examination See below: (Normal) Comments: Microscopic was indicated and was performed. Nitrite, Urine Negative (Normal) Urobilinogen,Semi-Qn 0.2 mg/dL (Normal) Range: 0.2-1.0 Bilirubin Negative (Normal) Occult Blood Negative (Normal) Ketones Negative (Normal) Glucose Negative (Normal) Protein Negative (Normal) WBC Esterase 2+ (Abnormal) Appearance Cloudy (Abnormal) Urine-Color Yellow (Normal) pH 5.0 (Normal) Range: 5.0-7.5 Specific [place] 1.021 (Normal) Range: 1.005-1.030 :40 CBC WITH MANUAL DIFF Comments: PATIENT NOT FASTINGPERFORMED BY: enVerid Xkkqbm7851 [facility] [id number] Information: NURS DRAW (42642) Immature Grans (Abs) 0.0 {x10E3/uL} (Normal) Range: [...] 3.77-5.28 WBC 6.0 {x10E3/uL} (Normal) Range: 3.4-10.8 20-Gry-71805:40 Metabolic Panel, Comprehensive Comments: PATIENT NOT FASTINGPERFORMED BY: [facility] Ivgmcb6366 [facility] [id number] (48100) ALT (SGPT) 10 [iU]/L (Normal) Range: 0-32 [...] be decreased and K increased. Clinicalcorrelation indicated. 3-Ozm-521470:58 URINE ERICA CULTURE-IDENTIFICATN Comments: PATIENT NOT FASTINGPERFORMED BY: [facility] Bzohhs2285 [facility] [id number] Information: SRC:GEOVANNY (01238) Antimicrobial MIHEAD (Normal) Comments: S = Susceptible; [...] Final report Culture,Comprehensive (Abnormal) 12-Jul-20179:21 Urinalysis, Office (45513) UA - LEUKOCYTE ESTERASE Small (Normal) UA - NITRITE Negative (Normal) URINE UROBILINGN JANETH TIMED Normal mg/dL (Normal) UA - PROTEIN Negative mg/dL (Normal) UA - PH 6 (Abnormal) UA - BLOOD Non Hemolyzed Trace (Normal) UA - SPECIFIC GRAVITY 1.020 (Normal) UA - KETONES Negative mg/dL (Normal) UA - BILIRUBIN Negative (Normal) UA - GLUCOSE Negative (Normal) 00-Zgf-623811:56 Renal function Panel (97209) Comments: PATIENT NOT FASTINGPERFORMED BY: [facility] CenterXqzadx4113 [facility] [id number] Albumin 4.1 g/dL (Normal) Range: 3.5-4.8 Phosphorus [...] 8-27 Glucose 87 mg/dL (Normal) Range: 65-99 25-Pfq-56458:29 HgA1C , Office (25712) HgA1C , Office 5.1 % (Normal) Range: 4.6 - 7.1 55-Sjv-460522:17 Metabolic Panel, Basic Comments: PATIENT NOT FASTINGPERFORMED BY: enVerid Xyisya7197 [facility] [id number] (62191) Calcium, Serum 9.2 mg/dL (Normal) Range: 8.7-10.3 [...] Glucose, Serum 85 mg/dL (Normal) Range: 65-99 55-Uvq-009508:48 HgA1C , Office (26239) HgA1C , Office 5.3 % (Normal) Range: 4.6 - 7.1 :44 POTASSIUM SERUM (84517) Comments: PATIENT NOT FASTINGPERFORMED BY: [employer] Vhdqbv8167 [facility] [id number] Potassium, Serum 4.0 mmol/L (Normal) Range: 3.5-5.2 16-Kga-898536:16 Microscopic Examination Comments: PATIENT NOT FASTINGPERFORMED BY: [employer]Ver[employer] Uhbowk2931 [facility] [id number] Bacteria Few (Normal) Mucus Threads Present (Normal) Epithelial Cells (non renal) 0-10 {/hpf} (Normal) Range: 0 - 10 RBC 3-10 {/hpf} (Abnormal) Range: 0 - 2 WBC >30 {/hpf} (Abnormal) Range: 0 - 5 97-Umj-193725:16 URINALYSIS (03296) Comments: PATIENT NOT FASTINGPERFORMED BY: enVerid Aqsspn9481 [facility] [id number] Microscopic Examination See below: (Normal) Comments: Microscopic was indicated and was performed. Nitrite, Urine Negative (Normal) Urobilinogen,Semi-Qn 0.2 mg/dL (Normal) Range: 0.2-1.0 Bilirubin Negative (Normal) Occult Blood Negative (Normal) Ketones Negative (Normal) Glucose Negative (Normal) Protein Negative (Normal) WBC Esterase 3+ (Abnormal) Appearance Clear (Normal) Urine-Color Yellow (Normal) pH 6.5 (Normal) Range: 5.0-7.5 Specific [place] 1.022 (Normal) Range: 1.005-1.030 40-Xto-957405:16 Metabolic Panel, Comments: PATIENT NOT FASTINGPERFORMED BY: [facility] CenterXzwyvc8921 [facility] [id number] Information: NURSE DRAW Comprehensive (20116) ALT (SGPT) 13 [iU]/L (Normal) Range: 0-32 [...] (Normal) Range: 65-99 :47 HgA1C , Office (69183) HgA1C , Office 5.1 % (Normal) Range: 4.6 - 7.1 :35 Urine Chloride Comments: [facility] [address] [place], [address] UR CL 82 mmol/L (Normal) :35 Urine Potassium Comments: [facility] [address] [place], [address] UR K 28.0 mmol/L (Normal) :35 Urine Sodium Comments: [facility] [address] [place], [address] UR NA 73 mmol/L (Normal) :25 CORTISOL SERUM Comments: Has pt arrived? YBASELINE OR POST MEDICATION STIMULATION?: 60 Min Post MED StimulatiTime Medication Given: [address] [place] [address] [address] [place], [address] CORTISOL 30.60 ug/dL (Abnormal) Range: 3.09-22.40 Comments: Adult (AM) 4.30 - 22.40 ug/dL Adult (PM) 3.09 - 16.66 ug/dL :55 CORTISOL SERUM Comments: Has pt arrived? YBASELINE OR POST MEDICATION STIMULATION?: 30 Min Post MED StimulatiTime Medication Given: [address] [place] [address] [address] [place], [address] CORTISOL 24.20 ug/dL (Abnormal) Range: 3.09-22.40 Comments: Adult (AM) 4.30 - 22.40 ug/dL Adult (PM) 3.09 - 16.66 ug/dL :55 Potassium Comments: [facility] [address] [place], [address] K 4.4 mmol/L (Normal) Range: 3.5-5.1 Comments: Slight Hemolysis, Result may be falsely increased. :05 CORTISOL SERUM Comments: Has pt arrived? YBASELINE OR POST MEDICATION STIMULATION?: [facility] [address] [place], [place], [address] CORTISOL 17.30 ug/dL (Normal) Range: 3.09-22.40 Comments: Adult (AM) 4.30 - 22.40 ug/dL Adult (PM) 3.09 - 16.66 ug/dL 41-Eld-734378:11 Metabolic Panel, Comprehensive Comments: recheck in 3 weeks; PATIENT NOT FASTINGPERFORMED BY: [facility] Odjlax8110 [facility] [id number] (67837) ALT (SGPT) 7 [iU]/L (Normal) Range: 0-32 [...] Glucose, Serum 90 mg/dL (Normal) Range: 65-99 25-Qgk-201980:12 POTASSIUM URINE (09838) Comments: PATIENT NOT FASTINGPERFORMED BY: LabSierra [facility] FoundationMiners' [facility] Medical CenterFakwer8804 [facility] [id number] Information: SRC:SANTI [id number] START @549AM FINISH Potassium, Urine 37.4 {mmol/24_hr} (Normal) Range: 25.0-125.0 Potassium, Urine 15.6 mmol/L (Normal) 54-Cjp-013931:00 OSMOLALITY URINE (38146) Comments: re check in 4 weeks; PATIENT WAS FASTINGPERFORMED BY: [employer] [facility] Pffwxp4719 [facility] [id number] BY: enVerid[address] [id number] Osmolality, Urine 551 {mOsmol/kg} (Normal) Comments: 24 hr : 300 - 900 Random: 50 - 1400 After 12hr fluid restriction: >850 46-Bzg-983167:00 OSMOLALITY BLOOD (72735) Comments: re check in 4 weeks; PATIENT WAS FASTINGPERFORMED BY: MtoVMiners' [facility] Medical CenterNlceyk0014 [facility] [id number] BY: enVerid[address] [id number] Osmolality 291 {mOsmol/kg} (Normal) Range: 280-301 53-Usl-425216:00 Metabolic Panel, Basic Comments: re check in 4 weeks; PATIENT WAS FASTINGPERFORMED BY: MtoV [address] [place] [address] [id number] BY: qunb[address] [id number] (36673) nical Information: [id number] FEE 250251 Calcium, Serum 9.3 mg/dL (Normal) Range: 8.7-10.3 [...] Glucose, Serum 89 mg/dL (Normal) Range: 65-99 80-Jjp-452672:00 Sodium Spot Urine Comments: re check in 4 weeks; PATIENT WAS FASTINGPERFORMED BY: LabBr[place] 9505370 [facility] [id number] BY: [address] [id number] (58246) Sodium, Urine 132 mmol/L (Normal) 85-Uis-315867:05 POTASSIUM SERUM (68168) Comments: PATIENT NOT FASTINGPERFORMED BY: qunb[address] [id number] Information: B36461, 544038 Potassium, Serum 5.5 mmol/L (Abnormal) Range: 3.5-5.2 96-Ssf-176859:01 LIPID PANEL (54951) Comments: PATIENT WAS FASTINGPERFORMED BY: qunb[address] [id number] Information: 741877,Q02493 LDL/HDL Ratio 1.3 {ratio_units} (Normal) Range: 0.0-3.2 [...] Cholesterol, Total 185 mg/dL (Normal) Range: 100-199 94-Ekb-452673:05 Lactic Acid Comments: Test performed at:[facility] [address] [place] [address] LACTIC ACID 1.1 mmol/L (Normal) Range: 0.4-2.0 Comments: Specimen moderately hemolyzed. Results may be affected. 02-Iny-412284:05 Troponin-I Comments: 'TROP' Serial specimen #1, #2, #3, or #4: 1Test performed at:[facility] [address] [place], [place] [id number] TROPONIN-I < 0.02 ng/mL (Normal) Comments: TROPONIN-I EXPECTED VALUES <0.05 NEGATIVE 0.06 - 0.59 AT RISK OF SC > OR = 0.60 SUGGEST SC :21 CBC W/Diff, Automated Comments: Test performed at:[facility] [address] [place] [address] Absolute Lymph 0.72 {X10_3/ul} (Abnormal) [...] :21 Comprehensive Metabolic Profil Comments: Test performed at:[facility] [address]ubt[address] [facility] [place] [address] GAP 9 (Normal) Range: 5-15 CO2 26.0 [...] Comments: Please note revised CREATININE reference range dapddsuyo69/22/2015. BUN 18 mg/dL (Normal) Range: 7-18 GLU 118 mg/dL (Abnormal) Range: 70-110 Comments: Fasting Glucose result from 110 to <126 mg/dLsuggests IMPAIRED HOMEOSTASIS per A.D.A. criteria. :21 Amylase (49314) Comments: Test performed at:[facility] J[address]qtnw[address] [facility] [place], [place] [id number] WARD 46 U/L (Normal) Range: 25-115 13-Ovc-38434:21 Lipase (05887) Comments: Test performed at:[facility] [address] [place] [address] [place] [id number](380 LIPASE 110 U/L (Normal) Range: 73-393 76-Hfh-03489:35 Urinalysis, Office (99508) UA - LEUKOCYTE ESTERASE Trace (Normal) UA - NITRITE Negative (Normal) URINE UROBILINGN JANETH TIMED Normal mg/dL (Normal) UA - PROTEIN Negative mg/dL (Normal) UA - SPECIFIC GRAVITY 1.030 (Abnormal) UA - KETONES Negative mg/dL (Normal) UA - BILIRUBIN Negative (Normal) UA - GLUCOSE Negative (Normal) :31 Amylase Comments: Test performed at:[facility] [address] [place] [address] WARD 48 U/L (Normal) Range: 25-115 :31 CBC-Complete Blood Cnt No Diff Comments: Test performed at:[facility] [address] [place] [address] MPV 10.3 fL (Normal) Range: [...] :31 Comprehensive Metabolic Profil Comments: Test performed at:[facility] [address] [place], [place] [address] GAP 6 (Normal) Range: 5-15 CO2 27.0 [...] <126 mg/dLsuggests IMPAIRED HOMEOSTASIS per A.D.A. criteria. 12-Jun-20148:31 Lipase Comments: Test performed at:[facility] [address]ks[address] [place], [place] [address] LIPASE 122 U/L (Normal) Range: 70-290 :19 Urine Culture,Comprehensive Comments: PATIENT NOT FASTINGPERFORMED BY: [facility] Eykjep8026 [facility] [id number] Information: SRC:URC [id number] Result 1 MUG (Normal) Comments: Mixed urogenital flora1,000 Colonies/mL Urine Culture,Comprehensive Final report (Normal) :40 Urinalysis, Office (21222) UA - LEUKOCYTE ESTERASE Moderate (Normal) UA - NITRITE Negative (Normal) URINE UROBILINGN JANETH TIMED Normal mg/dL (Normal) UA - PROTEIN Negative mg/dL (Normal) UA - PH 6.5 (Normal) UA - BLOOD Negative (Normal) UA - SPECIFIC GRAVITY 1.020 (Normal) UA - KETONES Negative mg/dL (Normal) UA - BILIRUBIN Negative (Normal) UA - GLUCOSE Negative (Normal) 41-Oij-850374:06 PHOSPHORUS (93333) Comments: PATIENT NOT FASTINGPERFORMED BY: [place] [address]2670 [facility] [id number] Information: [id number] Phosphorus, Serum 3.9 mg/dL (Normal) Range: 2.5-4.5 73-Pmy-675138:06 MAGNESIUM (15989) Comments: PATIENT NOT FASTINGPERFORMED BY: [address] [id number] Magnesium, Serum 2.2 mg/dL (Normal) Range: 1.6-2.6 22-Nob-514490:06 CALCIUM, IONIZED (98881) Comments: PATIENT NOT FASTINGPERFORMED BY: [facility]6370 [facility] [id number] Calcium, Ionized, Serum 5.3 mg/dL (Normal) Range: 4.5-5.6 09-Dnq-964956:08 Thin Comments: Source.............Cervical;EndocervicalOther..............Post MenopausalNo. of containers..01 CYTYC Thin Prep VialPATIENT NOT FASTINGPERFORMED BY: [address] [place] [address] prep Pap [id number] Information: [id number] ([id number]) See Note NEGHPV (Normal) Comments: The HPV [...] for malignant neoplasm of the cervixKerwin Altamirano Router Operator Pin (ASCP) 29-Kzn-70693:22 Microscopic Examination Comments: PATIENT WAS FASTINGPERFORMED BY: [employer]6370 [facility] HospitalUnity SemiconductorAtrium Health Huntersville [id number] Bacteria None seen (Normal) Epithelial Cells (non renal) 0-10 {/hpf} (Normal) Range: 0 - 10 RBC 0-2 {/hpf} (Normal) Range: 0 - 2 WBC 0-5 {/hpf} (Normal) Range: 0 - 5 :22 CBC W/AUTO DIFF WBC Comments: copy to Dr. Madsen fax [phone]; PATIENT WAS FASTINGPERFORMED BY: [employer]6370 [facility] [id number] Information: [id number] (10687) Immature Grans (Abs) 0.0 {x10E3/uL} (Normal) Range: [...] 7.5 {x10E3/uL} (Normal) Range: 3.4-10.8 :22 PREALBUMIN (37776) Comments: PATIENT WAS FASTINGPERFORMED BY: YieldMoAtrium Health [facility]ville [id number] Prealbumin 18 mg/dL (Abnormal) Range: 20-40 :22 URINALYSIS, W/ MICRO (10225) Comments: PATIENT WAS FASTINGPERFORMED BY: [employer] [facility] [id number] Microscopic Examination See below: (Normal) Comments: Microscopic was indicated and was performed. Nitrite, Urine Negative (Normal) Urobilinogen,Semi-Qn 0.2 mg/dL (Normal) Range: 0.0-1.9 Bilirubin Negative (Normal) Occult Blood Negative (Normal) Ketones Negative (Normal) Glucose Negative (Normal) Protein Negative (Normal) WBC Esterase Trace (Abnormal) Appearance Clear (Normal) Urine-Color Yellow (Normal) pH 6.5 (Normal) Range: 5.0-7.5 Specific [place] 1.013 (Normal) Range: 1.005-1.030 :22 METABOLIC PANEL, COMPREHENSIVE Comments: PATIENT WAS FASTINGPERFORMED BY: [employer] [facility] [id number] (23521) ALT (SGPT) 7 [iU]/L (Normal) Range: 0-32 [...] 88 mg/dL (Normal) Range: 65-99 :07 PREALBUMIN (07120) Comments: Forward to Dr Yvonne Madsen at fax phone at [address] [place] [address]; PATIENT NOT FASTINGPERFORMED BY: [employer] [facility] Rufhco9944 [facility] [id number] Prealbumin 19 mg/dL (Abnormal) Range: 20-40 :07 CBC with manual diff (36045) Comments: Forward to Dr Yvonne Madsen at fax phone at [address] [place] [address]. [place] [address]; PATIENT NOT FASTINGPERFORMED BY: enVeridSt. Joseph's Regional Medical CenterRkpctx5960 [facility] [id number] Information: [id number] Immature Grans (Abs) 0.0 {x10E3/uL} (Normal) Range: [...] 3.77-5.28 WBC 7.7 {x10E3/uL} (Normal) Range: 3.4-10.8 3-Dck-486200:09 URINE ERICA CULTURE-IDENTIFICATN Comments: PATIENT NOT FASTINGPERFORMED BY: LabCoSt. Joseph's Regional Medical CenterXdugns2228 [facility] [id number] Information: [id number] (71680) Result 1 MUG (Normal) Comments: Mixed urogenital flora10,000-25,000 colony forming units per mL Urine Final report (Normal) Culture,Comprehensive :48 Urinalysis, Office (90533) UA - LEUKOCYTE ESTERASE Small (Normal) UA - NITRITE Negative (Normal) URINE UROBILINGN JANETH TIMED Normal mg/dL (Normal) UA - PROTEIN Negative mg/dL (Normal) UA - PH 7 (Normal) UA - BLOOD Negative (Normal) UA - SPECIFIC GRAVITY 1.020 (Normal) UA - KETONES Negative mg/dL (Normal) UA - BILIRUBIN Negative (Normal) UA - GLUCOSE Negative (Normal) 45-Gom-827378:07 URINE ERICA CULTURE-IDENTIFICATN Comments: PATIENT NOT FASTINGPERFORMED BY: qunbMclaren Bay Special Care Hospital6370 [facility] [id number] Information: SRC: URINE [id number] (26538) Antimicrobial MIHEAD (Normal) Comments: S = Susceptible; [...] pneumoniae (Normal) Urine Final report Culture,Comprehensive (Normal) 44-Aqy-42683:33 Urinalysis, Office (34278) UA - BILIRUBIN Negative (Normal) UA - BLOOD Non Hemolyzed Trace (Normal) UA - GLUCOSE Negative (Normal) UA - KETONES Negative mg/dL (Normal) UA - LEUKOCYTE ESTERASE Negative (Normal) UA - NITRITE Negative (Normal) UA - PH 7.0 (Normal) UA - PROTEIN Negative mg/dL (Normal) UA - SPECIFIC GRAVITY 1.015 (Normal) URINE UROBILINGN JANETH TIMED Normal mg/dL (Normal) 4-Gib-871134:01 URINE ERICA CULTURE-IDENTIFICATN Comments: PATIENT NOT FASTINGPERFORMED BY: qunbMclaren Bay Special Care Hospital6370 [facility] [id number] Information: [id number] (04642) Result 1 MUG (Normal) Comments: Mixed urogenital flora50,000-100,000 colony forming units per mL Urine Final report (Normal) Culture,Comprehensive 08-Nov-20129:00 Urinalysis, Office (46598) UA - BILIRUBIN Negative (Normal) UA - BLOOD Negative (Normal) UA - GLUCOSE Negative (Normal) UA - KETONES Negative mg/dL (Normal) UA - LEUKOCYTE ESTERASE Moderate (Normal) UA - NITRITE Negative (Normal) UA - PH 6.0 (Normal) UA - PROTEIN Negative mg/dL (Normal) UA - SPECIFIC GRAVITY 1.020 (Normal) URINE UROBILINGN JANETH TIMED Normal mg/dL (Normal) 61-Pmi-446062:41 Thin prep Pap Comments: Source.............Cervical;EndocervicalNo. of containers..01 CYTYC Thin Prep VialPATIENT NOT FASTINGPERFORMED BY: LabCo[address] [id number] Information: [id number] ([id number]) Note: PAPSMR (Normal) Comments: The Pap smear [...] gnant neopla sm of the cervixKailey Christensen Router Operator Pin (ASCP) 64-Ret-450331:00 BILAT SCRN DIGITAL & CAD Radiology Report [...] suspiciousabnormality. Signed:Samuel Rhodes M.D.Oct at 1:41:11 PM [id number] Signed GP/GP If you are the referring physician and would like to consult with theradiologist who provided this interpretation, please contact Danie Goyal at [phone]. If this radiologist is unavailable, youwill be directed to another radiologist to assist. If you are a patient with a question regarding this report, pleasecont actyour referring physician directly. Professional Interpretation Provided By: [employer], Phone , These documents contain legally protected [...] 10/28/12 1346 Sign by: Samuel Rhodes MD 4-Cbn-136844:22 URINE ERICA CULTURE (JANETH Comments: PATIENT NOT FASTINGPERFORMED BY: [facility] Hgctyj5026 [facility] [id number] Information: SRC:UR [id number] COL COUNT) (53219) Result 1 BETAGB (Normal) Comments: Beta hemolytic [...] Final report (Normal) Culture,Comprehensive 14-Oct-20128:17 Urinalysis, Office (84880) UA - BILIRUBIN Negative (Normal) UA - BLOOD Non Hemolyzed Trace (Normal) UA - GLUCOSE Negative (Normal) UA - KETONES Negative mg/dL (Normal) UA - LEUKOCYTE ESTERASE Small (Normal) UA - NITRITE Negative (Normal) UA - PH 6.0 (Normal) Comments: 5.5 UA - PROTEIN Negative mg/dL (Normal) UA - SPECIFIC GRAVITY 1.025 (Normal) URINE UROBILINGN JANETH TIMED Normal mg/dL (Normal) 31-Mvt-51265:12 URINE ERICA CULTURE-JANETH COL Comments: PATIENT NOT FASTINGPERFORMED BY: [facility] Dabmpl4396 [facility] [id number] Information: SRC:UR [id number] COUNT (75511) Result 1 MUG (Normal) Comments: Mixed urogenital floraGreater than 100,000 colony forming units per mL Urine Culture,Comprehensive Final report (Normal) 70-Brn-99321:10 Urinalysis, Office (13368) UA - BILIRUBIN Negative (Normal) UA - BLOOD Negative (Normal) UA - GLUCOSE Negative (Normal) UA - KETONES Negative mg/dL (Normal) UA - LEUKOCYTE ESTERASE Small (Normal) UA - NITRITE Negative (Normal) UA - PH 7.0 (Normal) UA - PROTEIN Negative mg/dL (Normal) UA - SPECIFIC GRAVITY 1.015 (Normal) URINE UROBILINGN JANETH TIMED Normal mg/dL (Normal) 95-Xcy-037351:10 URINE ERICA CULTURE (JANETH Comments: PATIENT NOT FASTINGPERFORMED BY: [employer] [facility] Auhmkj5658 [facility] [id number] Information: SRC: [id number] COL COUNT) (82792) Result 1 BETAGB (Normal) Comments: Beta hemolytic [...] (CLSI 2011) Urine Final report (Normal) Culture,Comprehensive 92-Xzo-67885:48 Urinalysis, Office (24573) UA - BILIRUBIN Negative (Normal) UA - BLOOD Hemolyzed Small (Normal) UA - GLUCOSE Negative (Normal) UA - KETONES Small mg/dL (Normal) UA - LEUKOCYTE ESTERASE Large (Normal) UA - NITRITE Negative (Normal) UA - PH 6.0 (Normal) UA - PROTEIN Negative mg/dL (Normal) UA - SPECIFIC GRAVITY 1.025 (Normal) URINE UROBILINGN JANETH TIMED Normal mg/dL (Normal) 2-Ghc-400600:58 URINE ERICA CULTURE-IDENTIFICATN Comments: PATIENT NOT FASTINGPERFORMED BY: [facility] Atvcnp9854 [facility] [id number] Information: [id number] (75931) Result 2 BETAGB (Normal) Comments: Beta hemolytic [...] 800 Colonies/mL (Normal) Urine Final report (Normal) Culture,Comprehkindred hospital 8-Lqn-793116:46 Urinalysis, Office (48869) UA - BILIRUBIN Negative (Normal) UA - BLOOD Non Hemolyzed Trace (Normal) UA - GLUCOSE Negative (Normal) UA - KETONES Negative mg/dL (Normal) UA - LEUKOCYTE ESTERASE Small (Normal) UA - NITRITE Negative (Normal) UA - PH 7.0 (Normal) UA - PROTEIN Negative mg/dL (Normal) UA - SPECIFIC GRAVITY 1.015 (Normal) URINE UROBILINGN JANETH TIMED Normal mg/dL (Normal) 58-Bzn-338730:00 URINE ERICA CULTURE-JANETH COL Comments: PATIENT NOT FASTINGPERFORMED BY: [facility] Yzuaan7999 [facility] [id number] Information: SRC:UR [id number] COUNT (99535) Result 1 MUG (Normal) Comments: Mixed urogenital flora10,000-25,000 colony forming units per mL Urine Final report (Normal) Culture,Comprehensive 92-Aqw-436852:35 Urinalysis, Office (92908) UA - BILIRUBIN Negative (Normal) UA - BLOOD Negative (Normal) UA - GLUCOSE Negative (Normal) UA - KETONES Negative mg/dL (Normal) UA - LEUKOCYTE ESTERASE Trace (Normal) UA - NITRITE Negative (Normal) UA - PH 7.0 (Normal) UA - PROTEIN Negative mg/dL (Normal) UA - SPECIFIC GRAVITY 1.015 (Normal) URINE UROBILINGN JANETH TIMED 2 mg/dL (Normal) :38 CALCIFIDIOL (36039) VIT D 25 Comments: PATIENT WAS FASTINGPERFORMED BY: YieldMoAtrium Health [facility]ville [id number] Vitamin D, 25-Hydroxy 37.7 ng/mL (Normal) Range: 30.0-100.0 Comments: Vitamin D deficiency has been defined by the [place] of[place] and an Endocrine Society practice guideline as alevel of serum 25-OH vitamin D less than 20 ng/mL (1,2).The Endocrine Society went on to further define vitamin Dinsufficiency as a level between 21 and 29 ng/mL (2).1. IOM ([place]). 2010. Dietary reference intakes for calcium and D. [place]: The National Academies Press.2. Aaron MF, Curry [place], Viet ALLISON, et al. Evaluation, treatment, and prevention of vitamin D deficiency: an Endocrine Society clinical practice guideline. JCEM. 2010; 96(7):1911-30. :38 Lipid Panel (68161) Comments: PATIENT WAS FASTINGPERFORMED BY: [employer]6370 BPA SolutionsAt[facility] Health [facility] [id number] LDL/HDL Ratio 1.1 {ratio_units} (Normal) Range: 0.0-3.2 LDL Cholesterol Calc 81 mg/dL (Normal) Range: 0-99 VLDL Cholesterol Donovan 22 mg/dL (Normal) Range: 5-40 HDL Cholesterol 76 mg/dL (Normal) Comments: According to ATP-III Guidelines, HDL-C >59 mg/dL is considered anegative risk factor for CHD. Triglycerides 111 mg/dL (Normal) Range: 0-149 Cholesterol, Total 179 mg/dL (Normal) Range: 100-199 :38 CBC (Auto) (79351) Comments: PATIENT WAS FASTINGPERFORMED BY: [facility] [id number] Platelets 207 {x10E3/uL} (Normal) Range: 155-379 Comments: [...] 3.4-10.8 Comments: Please note reference interval change 76-Zym-11640:38 Metabolic Panel, Comments: PATIENT WAS FASTINGPERFORMED BY: LabCoSt. Joseph's Regional Medical CenterRwhzzx1135 [facility] [id number] Information: [id number] Comprehensive (03068) ALT (SGPT) 7 [iU]/L (Normal) Range: 0-32 [...] Glucose, Serum 86 mg/dL (Normal) Range: 65-99 91-Qjr-46068:09 Urinalysis, Office (06181) UA - BILIRUBIN Negative (Normal) UA - [...] Rhodes M.D.November 01, 2011 at 10:15:09 AM [id number] Signed GP/GP If you are the referring phys ician and would like to consult with theradiologist who provided this interpretation, please contact Danie Goyal at [phone]. If this radiologist is unavailable, youwill be directed to a [facility] radiologist to assist. If you are a patient with a question regarding this report, pleasecontactyour referring physician directly. Professional Interpretation Provided By: [employer], Phone [phone], These documents contain legally protected and confidential [...] 30/01 1022 Sign by: Samuel Rhodes MD 79-Zvk-94168:07 CBC with manual diff Comments: PATIENT WAS FASTINGPERFORMED BY: LabCoSt. Joseph's Regional Medical CenterLsfqal8095 [facility] [id number] Information: [id number] (20393) Immature Grans (Abs) 0.0 {x10E3/uL} (Normal) Range: [...] 6.2 {x10E3/uL} (Normal) Range: 4.0-10.5 :07 CALCIFIDIOL (50112) VIT D 25 Comments: PATIENT WAS FASTINGPERFORMED BY: [facility]6370 [facility] [id number] Vitamin D, 25-Hydroxy 47.5 ng/mL (Normal) Range: 30.0-100.0 Comments: Vitamin D deficiency has been defined by the [place] of[place] and an Endocrine Society practice guideline as alevel of serum 25-OH vitamin D less than 20 ng/mL (1,2).The Endocrine Society went on to further define vitamin Dinsufficiency as a level between 21 and 29 ng/mL (2).1. IOM ([place]). 2010. Dietary reference intakes for calcium and D. [place]: The National Academies Press.2. Aaron MF, Curry EVANS, Viet ALLISON, et al. Evaluation, treatment, and prevention of vitamin D deficiency: an Endocrine Society clinical practice guideline. JCEM. 2010; 96(7):1911-30. :07 Metabolic Panel, Comprehensive Comments: PATIENT WAS FASTINGPERFORMED BY: [facility]6370 [facility] [id number] (02341) ALT (SGPT) 7 [iU]/L (Normal) Range: 0-40 [...] Glucose, Serum 87 mg/dL (Normal) Range: 65-99 64-Adi-18779:07 Lipid Panel (85961) Comments: PATIENT WAS FASTINGPERFORMED BY: LabCoSt. Joseph's Regional Medical CenterTfiiyv1946 [facility] [id number] LDL/HDL Ratio 1.2 {ratio_units} (Normal) Range: 0.0-3.2 [...] 100-199 Comments: Please note reference interval change 52-Uow-605927:46 BILAT SCRN DIGITAL & CAD Radiology Report See Note (Normal) Comments: MAMMOGRAPHY - BILATERAL SCREENING REASON FOR EXAM: Female, 71 years old. Routine annual screeningexamination. PERTINENT HISTORY: Sister with breast cancer. TECHNIQUE: Digital examinat ion. Mediol ateral oblique (MLO) andcraniocaudad (CC) views of both breasts were obtained. CAD: CAD wasperformed on this study. COMPARISON: Comparison is made with prior examinations dated July and [facility] 2009. FINDINGS:The breast composition is [...] Rhodes M.D.October 26, 2011 at 11:14:07 AM [id number] Signed GP/GP If you are the referring physician and would like to consult with ther adiologist who provided this interpretation, please contact Danie Goyal at [phone]. If this radiologist is unavailable, youwill be directed to another radiologist to assist. If you are a patient with a question regarding this report, pleasecontactyour referring physician directly. Professional Interpretation Provided By: [employer], Phone , These documen ts contain legally [...] 10/26/11 1121 Sign by: Samuel Rhodes MD 95-Xzr-616844:17 Thin prep Pap Comments: Source.............Cervical;EndocervicalNo. of containers..01 CYTYC Thin Prep VialPATIENT NOT FASTINGPERFORMED BY: LabCo[address] [place] [id number] Information: [id number] (00272) Note: PAPSMR (Normal) Comments: The Pap smear [...] neopla sm of the cervixElizabeth July Joe, Router Operator Pin (ASCP) 71-Vhd-915471:04 BILAT DIAG DIGITAL & CAD Radiology Report See Note [...] 08/03/10 1404 Sign by: Samuel Rhodes MD 14-Ksu-85640:52 UNILAT RT DIAG DIGITAL & CAD Radiology [...] Category 3: Probably Benign Finding - Initial Uedsb-AnurchneCathce-dv Suggested. A letter regarding these results will be sent tothepatient by the facility. Approximately 10% of breast cancers are not detected by mammography. Anormal mammogram should not delay biopsy of a clinically suspiciousabnormality. Dictated on 01/27/10 1006 by JANNY SALEHTranscribed on 01/31/10 2231 by ITS IMPORTSign by JANNY SALEH on 01/31/10 2232 Sign by: JANNY SALEH 35-Qxr-57341:18 DEXA BONE DENSITY STUDY (HP) Radiology Report See Note (Normal) Comments: Exam Number: [id number] CLINICAL:The patient is a 61 day old woman who is postmenopausal with pastuse of hormone replacement therapy. EXAMINATION:DUAL ENERGY X-RAY ABSORPTIOMETRY / DEXA. TECH NIQUE:Bone D ensity Measurements (BMD) of lumbar spine and bilateral hipswere obtained using a [employer] scanner.. COMPARISON:2002 at 2006 FINDINGS: Lumbar Spine [...] Foundation http://[email or web address].org Reported By: JANNY SALEH M.D. 94-Lvy-071980:00 Thin prep Pap Comments: Source.............Cervical;EndocervicalNo. of containers..01 CYTYC Thin Prep VialPATIENT NOT FASTINGPERFORMED BY: [facility] [address] [id number] Information: [id number] (81782) Note: PAPSMR (Normal) Comments: The Pap smear [...] MALIGNANCY.THIS SPECIMEN WAS RESCREENED PART OF OUR ETHNOARCHAEOLOGY PROFESSOR PROGRAM.Satisfactory for evaluation. Endocervical and/or squamous metaplasticc ells (endoce rvical component) are present.V76.2 ; Screening for malignant neoplasm of the cervixKlaudia Nelson CytotechnologistNatalia Cutler, Supervisory Router Operator Pin (ASCP) 94-Voz-77804:29 Metabolic Panel, Comments: PATIENT WAS FASTINGPERFORMED BY: [facility] Vplnjg1846 [facility] [id number] Information: [id number] Comprehensive (10040) ALT (SGPT) 10 [iU]/L (Normal) Range: 0-40 [...] Glucose, Serum 87 mg/dL (Normal) Range: 65-99 :29 CALCIFIDIOL (38007) VIT D 25 Comments: PATIENT WAS FASTINGPERFORMED BY: [employer]6370 [employer] TechnologiesUNC Health Southeastern [id number] Vitamin D, 25-Hydroxy 25.2 ng/mL (Abnormal) Range: 32.0-100.0 Comments: Recent studies consider the lower limit of 32.0 ng/mL to be athreshold for optimal health.Alex MCKOY. J Nutr. 2004;135(2):317-22. :29 Lipid Panel (55779) Comments: PATIENT WAS FASTINGPERFORMED BY: YieldMoAtrium Health [facility] [id number] LDL Cholesterol Calc 104 mg/dL (Abnormal) Range: 0-99 LDL/HDL Ratio 1.4 {ratio_units} (Normal) Range: 0.0-3.2 HDL Cholesterol 73 mg/dL (Normal) Comments: According to ATP-III Guidelines, HDL-C >59 mg/dL is considered anegative risk factor for CHD. Triglycerides 137 mg/dL (Normal) Range: 0-149 VLDL Cholesterol Donovan 27 mg/dL (Normal) Range: 5-40 Cholesterol, Total 204 mg/dL (Abnormal) Range: 100-199 97-Hny-16813:41 CBC With Differential/Platelet Comments: PATIENT WAS FASTINGPERFORMED BY: LabCoSt. Joseph's Regional Medical CenterOmiewc3302 [facility] [id number] Baso (Absolute) 0.0 {x10E3/uL} (Normal) Range: 0.0-0.2 [...] (14) Comments: PATIENT WAS FASTINGPERFORMED BY: [facility] Mlbwqw5932 [facility] [id number] A/G Ratio 1.1 (Normal) Range: 1.1-2.5 Albumin, [...] Serum 85 mg/dL (Normal) Range: 65-99 If -Gabonese >60 mL/min (Normal) Range: 60-128 Comments: Note: [...] With LDL/HDL Comments: PATIENT WAS FASTINGPERFORMED BY: enVeridSt. Joseph's Regional Medical CenterHbwkyh3762 [facility] [id number] Ratio Cholesterol, Total 210 mg/dL (Abnormal) Range: [...] Microscopic Examination Comments: PATIENT WAS FASTINGPERFORMED BY: enVeridSt. Joseph's Regional Medical CenterByztln8895 [facility] [id number] Bacteria None seen (Normal) Crystal Type Amorphous Sediment (Normal) Crystals Present (Abnormal) Epithelial Cells (non renal) >10 {/hpf} (Abnormal) Range: 0 - 10 Mucus Threads Present (Abnormal) RBC 0-3 {/hpf} (Normal) Range: 0 - 3 WBC 11-30 {/hpf} (Abnormal) Range: 0 - 5 :41 Urinalysis, Routine Comments: PATIENT WAS FASTINGPERFORMED BY: LabSierra Health FoundationSt. Joseph's Regional Medical CenterVepusr0748 [facility] [id number] Appearance Clear (Normal) Bilirubin Negative (Normal) Glucose Negative (Normal) Ketones Negative (Normal) Microscopic Examination See below: (Normal) Nitrite, Urine Negative (Normal) Occult Blood Negative (Normal) pH 7.5 (Normal) Range: 5.0-7.5 Protein Negative (Normal) Specific [place] 1.018 (Normal) Range: 1.005-1.030 Urine-Color Yellow (Normal) Urobilinogen,Semi-Qn 0.2 mg/dL (Normal) Range: 0.0-1.9 WBC Esterase 3+ (Abnormal) :13 KNEE,4 OR MORE VIEWS Radiology Report See Note (Normal) Comments: Exam Number: [id number] LEFT KNEE - VIEWS STATEMENTPain. PRIOR STUDIESNone. No acute fracture or joint dislocation is shown. There is no jointeffusion. No suspicious bone lesions or pathologic calcific ations. There is mild narrowing over the medial joint compartment. IMPRESSIONMild narrowing of the medial joint compartment, otherwise negativeleft knee. Reported By: GRACE CORDERO M.D. 4-Dkk-490849:55 Pap Lb, rfx HPV Comments: Source.............Cervical;EndocervicalNo. of containers..01 CYTYC Thin Prep VialPERFORMED BY: [facility] [address] [place] [id number] all pth . . (Normal) DIAGNOSIS: SPRCS (Normal) Comments: NEGATIVE FOR INTRAEPITHELIAL LESION AND MALIGNANCY.Satisfactory for evaluation. Endocervical and/or squamous metaplasticcells (endocervical component) are present.V72.31 ; Routine gynecolog ical examina Dayna Rasmussen Router Operator Pin (ASCP) Note: PAPSMR (Normal) Comments: The Pap [...] Report See Note (Normal) Comments: Exam Number: [id number] BONE DENSITOMETRY TECHNIQUE Bone densitometry of the [...] density is measured at 6.2% greater than vk9425. The T-value of the left femoral neck [...] cervix Planned Observations CBC WITH MANUAL DIFF (97928)Indication: Impaired fasting glucose On: 58-Ajv-897796:39 Request Metabolic Panel, Comprehensive (94012)Indication: Hyperkalemia On: 69-Egh-287629:32 Request Comments: re check in 4 weeks POTASSIUM URINE (97538)Indication: Hyperkalemia On: 50-Dmu-129981:43 Request Comments: re check in 4 weeks CBC with auto diff (97166)Indication: Abdominal pain On: :03 Request Metabolic Panel, Comprehensive (59918)Indication: Abdominal pain On: 32-Qnt-28410:03 Request Lipase (41653)Indication: Abdominal pain On: 12-Jun-20147:28 Request Amylase (92689)Indication: Abdominal pain On: :28 Request CBC (Auto) (23503)Indication: Abdominal pain On: :27 Request Metabolic Panel, Comprehensive (80538)Indication: Abdominal pain On: :27 Request URINE ERICA CULTURE-JANETH COL COUNT (85197)Indication: UTI (lower urinary tract infection) On: :50 Request URINE ERICA CULTURE-JANETH COL COUNT (67320)Indication: UTI (lower urinary tract infection) On: :40 Request URINE ERICA CULTURE-IDENTIFICATN ([id number])Indication: Urinary frequency On: :47 Request Comments: recheck after finish antibiotic URINALYSIS ([id number])Indication: Urinary frequency On: :47 Request Thin prep Pap ([id number])Indication: Screening for malignant neoplasm of cervix On: :20 Request URINALYSIS ([id number])Indication: Screening for malignant neoplasm of cervix On: :19 Request URINALYSIS ([id number])Indication: Screening for malignant neoplasm of cervix On: :19 Request CBC (Auto) ([id number])Indication: Screening for malignant neoplasm of cervix On: :18 Request Metabolic Panel, Comprehensive ([id number])Indication: Screening for malignant neoplasm of cervix On: :18 Request Lipid Panel ([id number])Indication: Screening for malignant neoplasm of cervix On: :18 Request Planned Encounters Medical; [facility] 6 Month Fu - On: 23-May-2018 8:45 [facility] Jason GARRETT, Raine Gross MD Planned Procedures Bone Density StudyBy: Jason GARRETT, On: 08-Nov-2017 Intent Raine Gross MD Comments: schedule after 11-15-17 MAMMOGRAM BREAST BILATERAL SCREENING On: 08-Nov-2017 Intent DIGITAL ([id number])By: Raine Gomez MD Comments: schedule after 11-16-17 M Raine Gmoez MD INJECTION, PROLIA ([id number])By: Visit, On: 01-Aug-2017 Intent Nurse Comments: pt own med lot [id number] exp 10/25 given sq lt arm Flu Vaccine (Quadrivalent) 52675Wc: On: 23-Nov-2016 Intent Raine Gomez MD, MD, Dana Comments: Lot #[id number]-07/23/17ite-L dltd, IMDose prefilled syringegiven by:MLong, VALENTENVIS and ABN signed M Ear Irrigation ([id number])By: Jason On: 01-Sep-2016 Intent Raine GARRETT MD, Dana M Comments: Ear Irrigation performed on:bilateralAmount/color removed cerumen: large amountOUtcome:clear and tolerated Wax CurettesBy: Raine Gomez MD On: 01-Sep-2016 Intent Raine Gomez MD SCREENING DIGITAL TOMOSYNTHESIS OF On: 01-Sep-2016 Intent BREAST ([id number])By: Raine Gomez MD Comments: 10-22 Raine Gomez MD INJECTION, PROLIA ([id number])By: Visit, On: 01-Aug-2016 Intent Nurse Comments: [id number]/prefilled syringeR arm, IMML Long, [employer]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 Flu Vaccine (Quadrivalent) [id number]: On: 20-Oct-2015 Intent Raine Gomez MD, MD, Dana Comments: FLUlot: [id number]:08/04/16site:Lt deltoidroute:IMdose:.5mlDEMICK, MA M Wax CurettesBy: Raine Gomez MD On: 19-Aug-2015 Intent Raine Gomez MD Ear Irrigation ([id number])By: Jason On: 19-Aug-2015 Raine Frances MD, MD, Dana M DEXA SCAN AXIAL SKELETON ([id number])By: On: 19-Aug-2015 Intent Raine Gomez MD, MD, Dana Comments: after - M MAMMOGRAM, SCREENING, BOTH BREAST On: 19-Aug-2015 Intent ([id number])By: Raine Gomez MD Comments: after 9-16 due Raine Gomez MD INJECTION, PROLIA ([id number])By: Jason On: 12-Aug-2015 Intent Raine GARRETT MD, Dana M Comments: prolialot:[id number]:ite:lt subqroute:subqdose:60mgD.KP Tian MAMMOGRAM, SCREENING, BOTH BREAST On: 28-May-2015 Intent ([id number])By: Raine Gomez MD, MD, Dana M DEXA SCAN AXIAL SKELETON ([id number])By: On: 28-May-2015 Intent Raine Gomez MD, MD, Dana M INJECTION, PROLIA ([id number])By: Jason On: 01-Feb-2015 Intent Raine GARRETT MD, Dana M Comments: lot: [id number]: ite/route: L arm/SQamt: prefilled syringeVIS signed when applicableTO Anders ADMINISTRATION OF INFLUENZA VIRUS On: 02-Nov-2014 Intent VACCINE (G0008)By: Raine Gomez MD, MD, Dana M Toradol Injection, 30 mg ([id number])By: On: 03-Sep-2014 Intent Raine Gomez MD, MD, Dana Comments: Lot:[id number]:04/05/2016Dose:30mgRoute:imSite:r hipGiven By:ENDY Dunlap Phenergan Injection, up to 50 mg On: 03-Sep-2014 Intent ([id number])By: Raine Gomez MD Comments: 25 mg IV Raine Gomez MD INFUSION, NORMAL SALINE SOLUTION , On: 03-Sep-2014 Intent 1000 CC (Special Coverage Comments: IV Therapy lueqozepc33B, 1 inchSite: L acTolerated: moderately wellno redness or swelling, no s/s infiltrationER, LPNPhenergan push - DB, [id number] Instructions Apply. See MCM: 2049) ([id number])By: Raine Gomez MD, MD, Dana M Nuclear Medicine - HIDA w/CPKBy: On: 03-Sep-2014 Intent Raine Gomez MD, MD, Dana M INJECTION, PROLIA ([id number])By: Alyssa, On: 30-Jul-2014 Intent Aura Comments: lot:[id number]:10.17route:SQdose:60mgSite:L armgiven by: Michelle Shah CMA Ultrasound - PelvisBy: Jason GARRETT, On: 24-Jun-[address] - Abdomen & Pelvis (IV Contrast On: 12-Jun-2014 Intent Needed)By: Raine Gomez MD, MD, Dana M Ultrasound - GallbladderBy: Ciesa On: 08-Jun-2014 Intent CARE ASSISTANTKarla E INJECTION, PROLIA ([id number])By: Anjum On: 03-Feb-2014 Intent Yesika DE PAZ Comments: lot [id number] 6.17left BALDEV Mckeon ADMINISTRATION OF INFLUENZA VIRUS On: 07-Nov-2013 Intent VACCINE (G0008)By: Visit, Nurse Comments: Lot #[id number]-L dltd, IMDose prefilled syringegiven by:BALDEV TobarVIS and ABN signed FLU VAC, SPLIT, >3 YEARS, INTRAMUSC On: 07-Nov-2013 Intent ([id number])By: Visit, Nurse Bone Density StudyBy: Jason GARRETT, On: 30-Oct-2013 Intent Raine Gross MD BILATERAL MAMMOGRAMS ([id number])By: On: 30-Oct-2013 Intent Raine Gomez MD, MD, Dana M Radiology - ChestBy: Jason GARRETT, On: 27-Oct-2013 Intent Raine Gross MD EKG ([id number])By: Raine Gomez MD On: 27-Oct-2013 Intent Raine [...] Intent ()By: Raine Gomez MD Comments: Lot #:[id number] date:mount given:2ml Route: intra articular Site given:left knee Given By: Raine Honeycutt MD DRAIN/INJECT MAJOR JOINT OR BURSA On: 13-May-2013 Intent ([id number])By: Raine Gomez MD, MD, Raine Dunlap Kenalog Injection, 10 mgm On: 03-Feb-2013 Intent (J3301)By: Raine Gomez MD Comments: kenalog 1 continue current treatment plan llot # [id number] 06-17, bupivacaine lot#[id number] Raine Gomez MD Kenalog [...] SPLIT, >3 YEARS, INTRAMUSC On: 28-Oct-2012 Intent ([id number])By: Lula Flores Pap Smear, Medicare ([id number])By: On: 28-Oct-2012 Intent Raine Gomez MD, MD, Dana M Pelvic and Breast, Medicare On: 28-Oct-2012 Intent (G0101)By: Raine Gomez MD, MD, Dana M MAMMOGRAM, SCREENING, BOTH BREASTS On: 28-Oct-2012 Intent ([id number])By: Raine Gomez MD, MD, Dana M Kenalog [...] Dana M SPECIMEN HANDLING/TRANSPORT On: 23-Jul-2012 Intent ([id number])By: Sonia Phillips LPN DXA, BONE DENSITY, AXIAL SKELETON On: 26-Oct-2011 Intent ([id number])By: Raine Gomez MD, MD, Dana M MAMMOGRAM, SCREENING, BOTH BREASTS On: 26-Oct-2011 Intent ([id number])By: Raine Gomez MD, MD, Dana M EKG ([id number])By: Raine Gomez MD On: 26-Oct-2011 Intent Raine Gomez MD Comments: see scanned document of test done to see results reviewed today with patient FLU VAC, SPLIT, >3 YEARS, INTRAMUSC On: 26-Oct-2011 Intent ([id number])By: DANIAL Mayorga Comments: Lot #:[id number] date:ount given:prefilled syringeRoute: IMSite given:Given by: VIS signed ADMINISTRATION OF INFLUENZA VIRUS On: 26-Oct-2011 Intent VACCINE (G0008)By: DANIAL Mayorga Breast Diagnostic - BilateralBy: On: 03-Apr-2011 Intent Raine Gomez MD, MD, Dana M Breast Diagnostic - BilateralBy: On: 04-Aug-2010 Intent Raine Gomez MD, MD, Dana M PNEUM VAC ADLT/IMUMNOSPR, SBC/INTRM On: 06-Jun-2010 Intent ([id number])By: Raine Gomez MD Comments: lot # [id number]- 04/09/1139ewtb-BNPBfllau-QXqwib- 0.5 ML tolerated well Raine Gómez LPN, MD TD Injection , IM ([id number])By: On: 06-Jun-2010 Intent Raine Gomez MD, MD, Dana Comments: lot # [id number]- 12/21/1129rgbd-JRLCpghly-LQkwsn- 0.5ML tolerated well Katie Dunlap ADMINISTRATION OF PNEUMOCOCCAL On: 06-Jun-2010 Intent VACCINE (G0009)By: Raine Gomez MD, MD, Dana M Inhaler Demonstration ([id number])By: On: 30-May-2010 Intent Karla Tabares CNP Pulse Oximetry ([id number])By: Rayshawn KUNZ, On: 30-May-2010 Intent Shira Aerosol Treatment ([id number])By: Rayshawn On: 30-May-2010 Intent Karla KUNZ Eprescribed [...] MAMMOGRAM, SCREENING, BOTH BREASTS On: 22-Oct-2009 Intent ([id number])By: Raine Gomez MD, MD, Dana M DXA, BONE DENSITY, AXIAL SKELETON On: 22-Oct-2009 Intent ([id number])By: Raine Gomez MD, MD, Dana M FLU VAC, SPLIT, >3 YEARS, INTRAMUSC On: 05-Nov-2008 Intent ([id number])By: Amanda Luong RN ADMINISTRATION OF INFLUENZA VIRUS On: 05-Nov-2008 Intent VACCINE (G0008)By: Mast RN, Amanda ADMINISTRATION OF PNEUMOCOCCAL On: 12-Sep-2007 Intent VACCINE (G0009)By: Raine Gomez MD, MD, Dana M PNEUM VAC ADLT/IMUMNOSPR, SBC/INTRM On: 12-Sep-2007 Intent ([id number])By: Raine Gomez MD, MD, Dana M ELECTROCARDIOGRAM, COMPLETE (ECG) On: 12-Sep-2007 Intent ([id number])By: Raine Gomez MD, MD, Dana M Pulse Oximetry ([id number])By: Jason On: 12-Sep-2007 Intent Raine GARRETT MD, Ranie Dunlap Pap Smear, Medicare ([id number])By: On: 12-Sep-2007 Intent Raine Gomez MD, MD, Raine Dunlap Pelvic and Breast, Medicare On: 12-Sep-2007 Intent (G0101)By: Raine Gomez MD, MD, Dana M MAMMOGRAM, SCREENING, BOTH BREASTS On: 12-Sep-2007 Intent ([id number])By: Raine Gomez MD, MD, Dana M Bone Density StudyBy: Jason GARRETT, On: 26-Jun-2006 Intent Raine Gross MD MAMMOGRAM, SCREENING, BOTH BREASTS On: 26-Jun-2006 Intent ([id number])By: Raine Gomez MD, MD, Dana M Pap [...] M INJECTION, PROLIA Ordered: 03-Feb-2014 Pending Slarb 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 The patient has [...] The patient does have durable power of deputy county attorney and living will. The patient has noticed nothing from the geriatic depression scale. Other providers contributing to the patient's care are other: (Dr Membreno [place]).Encounter Diagnosis: Annual Medicare Physical (V70.0) Comprehensive Internal [...] (10 End: 27-Oct-2013 11: Dr. Sonny [place], [place] [phone]) . There have been no problems with [...] cough little with some sputum. started in [place] with the allergies. not on antihsitamineEncounter Diagnosis: [...] The patient does have durable power of deputy county attorney and living will. The patient has [...] [facility] End: 02-Nov-2005 22:28 Payers MedicareBER[facility] ADRIENNE MATA; augusto guarantor
--- OUTSIDE RECORDS SUMMARY | 2018-02-13 03:59 | XMS RPT_ITS | Continuity of Care Document ---
:1940 Author Organization [facility] Address [address] [place] [address] Phone Care Team Providers Name Role Phone [...] are up to date amita check at [facility] for prevnar. dental and eye [...] End : 07-Aug-2016 Inactive Comments:03-30-16 called into [facility] in [place] [phone] UTI KETEK, 400MG (Oral Tablet) 2 (two) [...] : 12-Apr-2017 Inactive Comments:dispense one pack ZOSTAVAX, 17327JUX/0.65ML (Subcutaneous Solution Reconstituted) 1 For Solution once [...] 10-Sep-2014 Procedures Procedure Dates Details COLONOSCOPY, DIAGNOSTIC (28816) Completed Oct-2005 Comments: adenoma, 11-29-15 Last Pap Smear, Date Completed 25-Aug-2005 left knee replacement 11-24-13 Completed Date Value Details 16-Nov-2016 SCREENING MAMM (CAD), BILAT Result: Comments: See Note; NOTES: [facility] Imaging Services [address] [place] [address] SCREENING MAMM (CAD), BILAT MR#: [id number] Acct: [id number] Name: ARIEL MATA Rep #: [id number] : 1940 F 76 From: Samuel Rhodes MD PCP: Raine Gomez MD Status: [facility] CL Study: SCREENING MAMM (CAD), BILAT Date of Exam: 11/16/16 Exam# [id number] Ordering Dr: Raine Gomez MD M AMMOGRAPHY [...] delay biopsy of a clinically suspicious abnormality. [id number] Electronically Signed: Samuel Rhodes MD at 13:03 EDT Tel [phone], Service support , CC: Raien Gomez MD Director Plans: Signed 16-Nov-2015 Bilat Scrn Digital AND CAD Result: Comments: See Note; NOTES: [facility] Imaging Services [address] [place] [address] Verdana 4d Bilat Scrn Digital AND CAD MR#: [id number] Acct: [id number] Name: ARIEL MATA Rep #: [id number] : 1940 F 75 From: Kiara Neves MD PCP: Raine Gomez MD Status: REG CLI Study: Bilat Scrn Digital AND CAD Date of Exam: 11/16/15 Exam# [id number] Ordering Dr: Raine Gomez MAMMOGRAPHY - BILATERAL [...] delay biopsy of a clinically suspicious abnormality. [id number] Electronically Signed: Kiara Neves MD at 15:55 EDT Tel , Service support [phone], CC: Raine Gomez MD Director Plans: Signed 16-Nov-2015 Bilat Scrn Digital AND CAD Result: Comments: See Note; NOTES: [facility] Imaging Services [address] [place] [address] Verdana 4d Bilat Scrn Digital AND CAD MR#: [id number] Acct: [id number] Name: ARIEL MATA Jewel Rep #: [id number] : 1940 F 75 From: Kiara Neves MD PCP: Raine Gomez MD Status: REG CLI Study: Bilat Scrn Digital AND CAD Date of Exam: 11/16/15 Exam# [id number] Ordering Dr: Raine Gomez ADDENDUM by Kiara Neves MD on 11/18/15 at 1615 HPBI/Bilat Scrn Digital AND CAD 11/18/15 1622 Date cc: Raine Gomez MD * Signed ADDENDUM by Kiara Neves MD on 11/18/15 at 1615 ADDENDUM COMPARISON: Mammograms from November 03, 2014 and October 30 4. Electronically Signed: Kiara Neves MD at 16:15 EDT Tel , Service support [phone], 11/18/15 0616 Date cc: Raine Gomez MD * Meche [...] delay biopsy of a clinically suspicious abnormality. [id number] Electronically Signed: Kiara Neves MD at 15:55 EDT Tel , Service support [phone], CC: Raine Gomez MD Director Plans: Signed 16-Nov-2015 Dexa Bone Density Study (HP) Result: Comments: See Note; NOTES: [facility] Imaging Services [address] [place] [address] Verdana 4d Dexa Bone Density Study (HP) MR#: [id number] Acct: [id number] Name: DANG MATA Rep #: [id number] : 1940 F 75 From: Samuel Rhodes MD PCP: Raine Gomez MD Status: REG CLI Study: Dexa Bone Density Study (HP) Date of Exam: 11/16/15 Exam# [id number] Ordering Dr: Raine Ruelas i, MD STUDY: [...] Samuel Rhodes MD at 12:41 EDT Tel [phone], Service support [phone], CC: Raine Gomez MD Director Plans: Signed 03-Nov-2014 Bilat Scrn Digital AND CAD Result: Comments: See Note; NOTES: [facility] Imaging Services [address] [place] [address] Breast Imaging Report MR#: [id number] Acct: [id number] Name: ARIEL MATA Rep #: [id number] : 1940 F 74 From: Samuel Rhodes MD PCP: Raine Gomez MD Status: REG CLI Study: Bilat Maheshn Digital AND CAD Date of Exam: 11/03/14 Exam# [id number] Ordering Dr: Raine Gomez MD MAMMOGRAPHY - [...] Samuel Rhodes MD at 9:32 EDT Tel [phone], Service support [phone], CC: Raine Gomez MD Director Plans: Signed 02-Nov-2014 FLU VAC, SPLIT, >3 YEARS, INTRAMUSC (98672) Comments: Lot:[id number]:06/20Dose:0.5mLRoute:IMSite:L DltdGiven By:ENDY signed Result: Comments: FLU SHOTlot: [id number]: 5dose:.5 mlSite:LT armRoute: IMDSma Kathy 21-Sep-2014 Upper GI/w Small Bowel Result: Comments: See Note; NOTES: [facility] Imaging Services [address] [place] [address] Radiology Report MR#: [id number] Acct: [id number] Name: ARIEL MATA Rep #: [id number] : 1940 F 74 From: Samuel Rhodes MD PCP: Raine Gomez MD Status: REG CLI Study: Upper GI/w Small Bowel Date of Exam: 09/21/14 Exam# [id number] Ordering Dr: Ronna Colindres MD STUDY: AIR-CONTRAST UPPER GI SERIES AND SMALL BOWEL FOLLOW-THROUGH EXAMINATION. REASON FOR EXAM: Female, 74 years old. Abdominal pain and history of prior intestinal obstruction. FLUOROSCOPY TIME (if ramirez pplied): (1:20) minutes/seconds TECHNIQUE: A metal sander film was obtained. Following this, the patient ingested barium. Images of the esophagus, stomach and duodenum were obtained. Following this, [facility] bowel follow-through examination was performed. COMPARISON: None. FINDINGS: On the metal sander film, a moderate amount of fecal material [...] Samuel Rhodes MD at 10:53 EDT Tel [phone], Service support [phone], RAD/Upper GI/w Small Bowel IMPRESSION: Unremarkable examination . Electronically Signed: Samuel Rhodes MD at 10:53 EDT Tel [phone], Service support [phone], CC: Raine Gomez MD; Ronna Colindres MD Director Plans: Signed 11-Sep-2014 Emergency Department Summary Result: Comments: See Note; NOTES: [facility] Medical Records Department [address] [place] [address] Emergency Department Summary MR#: [id number] Acct: [id number] Name: ARIEL MATA Rep #: [id number] : 1940 74 From: Tomy Ashton DO [...] in stable condition. Tomy Ashton DO T: [facility] JOB: [id number] 09/11/14 1507 <Electronically signed by Tomy Ashton DO> Date Tomy Ashton DO CC: Raine Gomez MD Date Dictated: 09/04/14147 Date Transcribed: 09/04/14147 Director Plans: Signed 03-Sep-2014 Abdomen/Pelvis WITH Contrast Result: Comments: See Note; NOTES: [facility] Imaging Services [address] [place] [address] CAT Scan Report MR#: [id number] Acct: [id number] Name: ARIEL MATA Rep #: [id number] : 1940 F 74 From: Daniel Wilder MD PCP: Raine Gomez MD Status: REG ER Study: Abdomen/Pelvis WITH Contrast Date of Exam: 09/03/14 Exam# [id number] Ordering Dr: Tomy Ashton TUDY: CT ABDOMEN [...] at 1:35 EDT Tel , Service support [phone], CC: Raine Gomez MD; Tomy Ashton DO Director Plans: Signed 03-Sep-2014 Hepatobilliary Imaging Result: Comments: See Note; NOTES: [facility] Imaging Services [address] [place] [address] Nuclear Medicine Report MR#: [id number] Acct: [id number] Name: ARIEL MATA Rep #: [id number] : 1940 F 74 From: Thierno Pineda DO PCP: Raine Gomez MD Status: REG CLI Study: Hepatobilliary Imaging Date of Exam: 09/03/14 Exam# [id number] Ordering Dr: Raine Gomez MD CL INICAL: [...] Thierno Pineda DO at 12:38 EDT Tel [phone], Service support [phone], CC: Raine Gomez MD Director Plans: Signed 25-Jun-2014 Pelvic (Non ) Result: Comments: See Note; NOTES: [facility] Imaging Services [address] [place] [address] Ultrasound Report MR#: [id number] Acct: [id number] Name: ARIEL MATA Rep #: [id number] : 1940 F 74 From: Shilo Spencer DO PCP: Raine Gomez MD Status: REG CLI Study: Pelvic (Non ) Date of Exam: 06/25/14 Exam# [id number] Ordering Dr: Raine Gomez MD STUDY: ULTR [...] Shilo Spencer DO at 17:10 EDT Tel [phone], Service support [phone], CC: Raine Gomez MD Director Plans: Signed 12-Jun-2014 Abdomen/Pelvis WITH Contrast Result: Comments: See Note; NOTES: [facility] Imaging Services [address] [place] [address] CAT Scan Report MR#: [id number] Acct: [id number] Name: ARIEL MATA Rep #: [id number] : 1940 F 74 From: Shilo Spencer DO PCP: Raine Gomez MD Status: REG CLI Study: Abdomen/Pelvis WITH Contrast Date of Exam: 06/12/14 Exam# [id number] Ordering Dr: Raine Gomez MD STUDY: CT [...] Shilo Spencer DO at 11:18 EDT Tel [phone], Service support [phone], CC : Raine Gomez MD Director Plans: Signed 09-Jun-2014 Gallbladder Result: Comments: See Note; NOTES: [facility] Imaging Services [address] [place] [address] Ultrasound Report MR#: [id number] Acct: [id number] Name: ARIEL MATA Rep #: [id number] : 1940 F 74 From: Samuel Rhodes MD PCP: Raine Gomez MD Status: REG CLI Study: Gallbladder Date of Exam: 06/09/14 Exam# [id number] Ordering Dr: Raine Gomez MD STUDY: ABDOMINA [...] Samuel Rhodes MD at 10:36 EDT Tel [phone], Service support [phone], CC: Raine Gomez MD Director Plans: Signed 11-Nov-2013 Dexa Bone Density Study (HP) Result: Comments: See Note; NOTES: [facility] Imaging Services [address] [place] [address] Bone Density Report MR#: [id number] Acct: [id number] Name: ARIEL MATA Rep #: [id number] : 1940 F 73 From: Samuel Rhodes MD PCP: Raine Gomez MD Status: REG CLI Study: Dexa Bone Density Study (HP) Date of Exam: 11/11/13 Exam# [id number] Ordering Dr: Raine Gomez MD STUDY: DUAL [...] Samuel Rhodes MD at 13:40 EDT Tel [phone], Service support [phone], CC: Raine Gomez MD Director Plans: Signed 30-Oct-2013 Bilat Scrn Digital & CAD Result: Comments: See Note; NOTES: [facility] Imaging Services [address] [place] [address] Breast Imaging Report MR#: [id number] Acct: [id number] Name: ARIEL MATA Rep #: [id number] : 1940 F 73 From: Samuel Rhodes MD PCP: Raine Gomez MD Status: REG CLI Exam# [id number] Ordering Dr: Raine Gomez MD MAMMOGRAPHY - [...] Samuel Rhodes MD at 12:50 EDT Tel [phone], Service support [phone], CC: Raine Gomez MD Director Plans: Signed 27-Oct-2013 Chest PA and Lateral Result: Comments: See Note; NOTES: [facility] Imaging Services [address] [place] [address] Radiology Report MR#: [id number] Acct: [id number] Name: ARIEL MATA Rep #: [id number] : 1940 F 73 From: New Reyna PCP: Raine Gomez MD Status: REG CLI Study: Chest PA and Lateral Date of Exam: 10/27/13 Exam# [id number] Ordering Dr: Raine Gomez MD STUDY: X-RAY [...] Jolanta Reyna MD at 7:53 EDT Tel [phone], Service support [phone], RAD/Chest PA and Lateral IMPRESSION: No acute cardiopulmonary disease. Elec tronically Signed: New Reyna MD at 7:53 EDT Tel [phone], Service support [phone], CC: Raine Gomez MD Director Plans: Signed Immunization Name Dates Details Influenza (3 years and up) on: 05-Nov-2008 Pneumococcal (2 years and up) on: 12-Sep-2007 Family History Unknown Family Member Name Dates Details Daughter 1 Comments: [place] teaching Status: Active Daughter 2 Status: Active Father Comments: prostate cancer, [place] later in life Status: Active Mother Comments: [...] Active Living Situation: Lives alone. Comments: , yazdanism goer Fabiola important in life. laz boyieddeidre [...] Examination Comments: PATIENT NOT FASTINGPERFORMED BY: MADHAVI S-cubism PressMatrixCaroMont [facility] [id number] Bacteria Few (Normal) Mucus Threads Present (Normal) Cast Type Hyaline casts (Normal) Casts Present {/lpf} (Abnormal) Epithelial Cells (non renal) >10 {/hpf} (Abnormal) Range: 0 - 10 RBC 0-2 {/hpf} (Normal) Range: 0 - 2 WBC 6-10 {/hpf} (Abnormal) Range: 0 - 5 :40 URINALYSIS (84242) Comments: PATIENT NOT FASTINGPERFORMED BY: Ayalogic Joznns9103 [facility] [id number] Microscopic Examination See below: (Normal) Comments: Microscopic was indicated and was performed. Nitrite, Urine Negative (Normal) Urobilinogen,Semi-Qn 0.2 mg/dL (Normal) Range: 0.2-1.0 Bilirubin Negative (Normal) Occult Blood Negative (Normal) Ketones Negative (Normal) Glucose Negative (Normal) Protein Negative (Normal) WBC Esterase 2+ (Abnormal) Appearance Cloudy (Abnormal) Urine-Color Yellow (Normal) pH 5.0 (Normal) Range: 5.0-7.5 Specific [place] 1.021 (Normal) Range: 1.005-1.030 :40 CBC WITH MANUAL DIFF Comments: PATIENT NOT FASTINGPERFORMED BY: S-cubism Xqonvx8865 [facility] [id number] Information: NURS DRAW (33135) Immature Grans (Abs) 0.0 {x10E3/uL} (Normal) Range: [...] 3.77-5.28 WBC 6.0 {x10E3/uL} (Normal) Range: 3.4-10.8 05-Idd-80593:40 Metabolic Panel, Comprehensive Comments: PATIENT NOT FASTINGPERFORMED BY: LabCoSaint Barnabas Medical CenterEansxx9052 [facility] [id number] (86978) ALT (SGPT) 10 [iU]/L (Normal) Range: 0-32 [...] be decreased and K increased. Clinicalcorrelation indicated. 1-Gby-418244:58 URINE ERICA CULTURE-IDENTIFICATN Comments: PATIENT NOT FASTINGPERFORMED BY: [facility] Sazxru6489 [facility] [id number] Information: SRC:GEOVANNY (30779) Antimicrobial MIHEAD (Normal) Comments: S = Susceptible; [...] Final report Culture,Comprehensive (Abnormal) 12-Jul-20179:21 Urinalysis, Office (97841) UA - LEUKOCYTE ESTERASE Small (Normal) UA - NITRITE Negative (Normal) URINE UROBILINGN JANETH TIMED Normal mg/dL (Normal) UA - PROTEIN Negative mg/dL (Normal) UA - PH 6 (Abnormal) UA - BLOOD Non Hemolyzed Trace (Normal) UA - SPECIFIC GRAVITY 1.020 (Normal) UA - KETONES Negative mg/dL (Normal) UA - BILIRUBIN Negative (Normal) UA - GLUCOSE Negative (Normal) 06-Kpl-781230:56 Renal function Panel (32789) Comments: PATIENT NOT FASTINGPERFORMED BY: LabCoSaint Barnabas Medical CenterTtaewy2651 [facility] [id number] Albumin 4.1 g/dL (Normal) Range: 3.5-4.8 Phosphorus [...] 8-27 Glucose 87 mg/dL (Normal) Range: 65-99 43-Lpe-57328:29 HgA1C , Office (96490) HgA1C , Office 5.1 % (Normal) Range: 4.6 - 7.1 76-Akh-164061:17 Metabolic Panel, Basic Comments: PATIENT NOT FASTINGPERFORMED BY: S-cubism Yngekk7101 [facility] [id number] (10868) Calcium, Serum 9.2 mg/dL (Normal) Range: 8.7-10.3 [...] Glucose, Serum 85 mg/dL (Normal) Range: 65-99 12-Fvp-139660:48 HgA1C , Office (40789) HgA1C , Office 5.3 % (Normal) Range: 4.6 - 7.1 92-Hai-382213:44 POTASSIUM SERUM (95920) Comments: PATIENT NOT FASTINGPERFORMED BY: S-cubismRUSTRwtaas5663 [facility] [id number] Potassium, Serum 4.0 mmol/L (Normal) Range: 3.5-5.2 70-Pun-905069:16 Microscopic Examination Comments: PATIENT NOT FASTINGPERFORMED BY: ABOVE SolutionsMckenzie Memorial Hospital6370 [facility] [id number] Bacteria Few (Normal) Mucus Threads Present (Normal) Epithelial Cells (non renal) 0-10 {/hpf} (Normal) Range: 0 - 10 RBC 3-10 {/hpf} (Abnormal) Range: 0 - 2 WBC >30 {/hpf} (Abnormal) Range: 0 - 5 55-Yms-720601:16 URINALYSIS (94915) Comments: PATIENT NOT FASTINGPERFORMED BY: ABOVE SolutionsE[facility] Hospital Pcrxmm6458 [facility] [id number] Microscopic Examination See below: (Normal) Comments: Microscopic was indicated and was performed. Nitrite, Urine Negative (Normal) Urobilinogen,Semi-Qn 0.2 mg/dL (Normal) Range: 0.2-1.0 Bilirubin Negative (Normal) Occult Blood Negative (Normal) Ketones Negative (Normal) Glucose Negative (Normal) Protein Negative (Normal) WBC Esterase 3+ (Abnormal) Appearance Clear (Normal) Urine-Color Yellow (Normal) pH 6.5 (Normal) Range: 5.0-7.5 Specific [place] 1.022 (Normal) Range: 1.005-1.030 63-Apg-277585:16 Metabolic Panel, Comments: PATIENT NOT FASTINGPERFORMED BY: LabCoSaint Barnabas Medical CenterUpbgzg9837 [facility] [id number] Information: NURSE DRAW Comprehensive (15742) ALT (SGPT) 13 [iU]/L (Normal) Range: 0-32 [...] (Normal) Range: 65-99 :47 HgA1C , Office (22413) HgA1C , Office 5.1 % (Normal) Range: 4.6 - 7.1 :35 Urine Chloride Comments: [facility] [address] [place], [address] UR CL 82 mmol/L (Normal) :35 Urine Potassium Comments: [facility] [address] [place], [address] UR K 28.0 mmol/L (Normal) :35 Urine Sodium Comments: [facility] [address] [place], [address] UR NA 73 mmol/L (Normal) :25 CORTISOL SERUM Comments: Has pt arrived? YBASELINE OR POST MEDICATION STIMULATION?: 60 Min Post MED StimulatiTime Medication Given: [address] [place] [address] [place], [phone] CORTISOL 30.60 ug/dL (Abnormal) Range: 3.09-22.40 Comments: Adult (AM) 4.30 - 22.40 ug/dL Adult (PM) 3.09 - 16.66 ug/dL :55 CORTISOL SERUM Comments: Has pt arrived? YBASELINE OR POST MEDICATION STIMULATION?: 30 Min Post MED StimulatiTime Medication Given: [address] [place] [address] [place], [address] CORTISOL 24.20 ug/dL (Abnormal) Range: 3.09-22.40 Comments: Adult (AM) 4.30 - 22.40 ug/dL Adult (PM) 3.09 - 16.66 ug/dL :55 Potassium Comments: [facility] [address] [place], [address] K 4.4 mmol/L (Normal) Range: 3.5-5.1 Comments: Slight Hemolysis, Result may be falsely increased. :05 CORTISOL SERUM Comments: Has pt arrived? YBASELINE OR POST MEDICATION STIMULATION?: [facility] [address] [place], [address] CORTISOL 17.30 ug/dL (Normal) Range: 3.09-22.40 Comments: Adult (AM) 4.30 - 22.40 ug/dL Adult (PM) 3.09 - 16.66 ug/dL 05-Xfo-154929:11 Metabolic Panel, Comprehensive Comments: recheck in 3 weeks; PATIENT NOT FASTINGPERFORMED BY: LabCoSaint Barnabas Medical CenterPsrtbp9920 [facility] [id number] (25039) ALT (SGPT) 7 [iU]/L (Normal) Range: 0-32 [...] Glucose, Serum 90 mg/dL (Normal) Range: 65-99 14-Hmc-198615:12 POTASSIUM URINE (93927) Comments: PATIENT NOT FASTINGPERFORMED BY: AyalogicSaint Barnabas Medical CenterDuldsw1948 [facility] [id number] Information: SRC:SANTI Y84344 START @549AM FINISH Potassium, Urine 37.4 {mmol/24_hr} (Normal) Range: 25.0-125.0 Potassium, Urine 15.6 mmol/L (Normal) 64-Auz-013492:00 OSMOLALITY URINE (66888) Comments: re check in 4 weeks; PATIENT WAS FASTINGPERFORMED BY: AyalogicRUSTYebahx0019 [facility] [id number] BY: [employer] [id number] Osmolality, Urine 551 {mOsmol/kg} (Normal) Comments: 24 hr : 300 - 900 Random: 50 - 1400 After 12hr fluid restriction: >850 98-Ivk-098088:00 OSMOLALITY BLOOD (86565) Comments: re check in 4 weeks; PATIENT WAS FASTINGPERFORMED BY: S-cubismD[place] [id number] [facility] [id number] BY: [employer] [id number] Osmolality 291 {mOsmol/kg} (Normal) Range: 280-301 73-Rrd-177924:00 Metabolic Panel, Basic Comments: re check in 4 weeks; PATIENT WAS FASTINGPERFORMED BY: S-cubismSaint Barnabas Medical CenterRabtld[address] [place] [address] [id number] BY: [employer] [id number] (70239) nical Information: [id number] [facility] 238773 Calcium, Serum 9.3 mg/dL (Normal) Range: 8.7-10.3 [...] Glucose, Serum 89 mg/dL (Normal) Range: 65-99 80-Zpo-358826:00 Sodium Spot Urine Comments: re check in 4 weeks; PATIENT WAS FASTINGPERFORMED BY: S-cubism[address] [id number] BY: [address] [id number] (68817) Sodium, Urine 132 mmol/L (Normal) 43-Fuu-535955:05 POTASSIUM SERUM (02191) Comments: PATIENT NOT FASTINGPERFORMED BY: S-cubism[address] [id number] Information: A70862, 648372 Potassium, Serum 5.5 mmol/L (Abnormal) Range: 3.5-5.2 06-Jao-375330:01 LIPID PANEL (57147) Comments: PATIENT WAS FASTINGPERFORMED BY: [employer] [id number] Information: 754886,S48814 LDL/HDL Ratio 1.3 {ratio_units} (Normal) Range: 0.0-3.2 [...] Cholesterol, Total 185 mg/dL (Normal) Range: 100-199 52-Fqe-572950:05 Lactic Acid Comments: Test performed at:[facility] [address] [place] [address] LACTIC ACID 1.1 mmol/L (Normal) Range: 0.4-2.0 Comments: Specimen moderately hemolyzed. Results may be affected. :05 Troponin-I Comments: 'TROP' Serial specimen #1, #2, #3, or #4: 1Test performed at:[facility] [address] [place] [address] TROPONIN-I < 0.02 ng/mL (Normal) Comments: TROPONIN-I EXPECTED VALUES <0.05 NEGATIVE 0.06 - 0.59 AT RISK OF PA > OR = 0.60 SUGGEST PA :21 CBC W/Diff, Automated Comments: Test performed at:[facility] [address] [place] [address] Absolute Lymph 0.72 {X10_3/ul} (Abnormal) [...] 4.2-5.4 WBC 12.3 K/mm3 (Abnormal) Range: 4.4-11.0 29-Kap-62794:21 Comprehensive Metabolic Profil Comments: Test performed at:[facility] [address]ru7643 [facility] [place] [address] GAP 9 (Normal) Range: 5-15 CO2 26.0 [...] Comments: Please note revised CREATININE reference range sgiinjrxa83/22/2015. BUN 18 mg/dL (Normal) Range: 7-18 GLU 118 mg/dL (Abnormal) Range: 70-110 Comments: Fasting Glucose result from 110 to <126 mg/dLsuggests IMPAIRED HOMEOSTASIS per A.D.A. criteria. 27-Nuw-09096:21 Amylase (49057) Comments: Test performed at:[facility] [address] [place] [address] WARD 46 U/L (Normal) Range: 25-115 :21 Lipase (46770) Comments: Test performed at:[facility] [address] [place] [address] LIPASE 110 U/L (Normal) Range: 73-393 83-Faw-98295:35 Urinalysis, Office (40484) UA - LEUKOCYTE ESTERASE Trace (Normal) UA - NITRITE Negative (Normal) URINE UROBILINGN JANETH TIMED Normal mg/dL (Normal) UA - PROTEIN Negative mg/dL (Normal) UA - SPECIFIC GRAVITY 1.030 (Abnormal) UA - KETONES Negative mg/dL (Normal) UA - BILIRUBIN Negative (Normal) UA - GLUCOSE Negative (Normal) :31 Amylase Comments: Test performed at:[facility] [address] [place] [address] WARD 48 U/L (Normal) Range: 25-115 :31 CBC-Complete Blood Cnt No Diff Comments: Test performed at:[facility] [address] [place] [address] 464891 MPV 10.3 fL (Normal) Range: 6.2-12.0 PLT [...] Metabolic Profil Comments: Test performed at:[facility] [address] [place] [address], [place] [address] GAP 6 (Normal) Range: 5-15 [...] :31 Lipase Comments: Test performed at:[facility] [address] [place] [address] [id number] LIPASE 122 U/L (Normal) Range: 70-290 :19 Urine Culture,Comprehensive Comments: PATIENT NOT FASTINGPERFORMED BY: [facility] Vsysjr1790 [facility] [id number] Information: SRC:[facility] K10648 Result 1 MUG (Normal) Comments: Mixed urogenital flora1,000 Colonies/mL Urine Culture,Comprehensive Final report (Normal) :40 Urinalysis, Office (74199) UA - LEUKOCYTE ESTERASE Moderate (Normal) UA - NITRITE Negative (Normal) URINE UROBILINGN JANETH TIMED Normal mg/dL (Normal) UA - PROTEIN Negative mg/dL (Normal) UA - PH 6.5 (Normal) UA - BLOOD Negative (Normal) UA - SPECIFIC GRAVITY 1.020 (Normal) UA - KETONES Negative mg/dL (Normal) UA - BILIRUBIN Negative (Normal) UA - GLUCOSE Negative (Normal) 40-Slz-981170:06 PHOSPHORUS (66334) Comments: PATIENT NOT FASTINGPERFORMED BY: [address] [id number] Information: 970093,C77293 Phosphorus, Serum 3.9 mg/dL (Normal) Range: 2.5-4.5 84-Csc-354655:06 MAGNESIUM (81185) Comments: PATIENT NOT FASTINGPERFORMED BY: [address] [id number] Magnesium, Serum 2.2 mg/dL (Normal) Range: 1.6-2.6 57-Eag-145215:06 CALCIUM, IONIZED (59065) Comments: PATIENT NOT FASTINGPERFORMED BY: [facility]6370 [facility] [id number] Calcium, Ionized, Serum 5.3 mg/dL (Normal) Range: 4.5-5.6 78-Nxa-317071:08 Thin Comments: Source.............Cervical;EndocervicalOther..............Post MenopausalNo. of containers..01 CYTYC Thin Prep VialPATIENT NOT FASTINGPERFORMED BY: [address] [place] 253 prep Pap [id number] Information: [id number] ([id number]) See Note NEGHPV (Normal) Comments: The HPV [...] for malignant neoplasm of the cervixKerwin Altamirano Network Lead (ASCP) 45-Kiu-46270:22 Microscopic Examination Comments: PATIENT WAS FASTINGPERFORMED BY: [employer]a [employer] Eaaewd3726 [facility] [id number] Bacteria None seen (Normal) Epithelial Cells (non renal) 0-10 {/hpf} (Normal) Range: 0 - 10 RBC 0-2 {/hpf} (Normal) Range: 0 - 2 WBC 0-5 {/hpf} (Normal) Range: 0 - 5 :22 CBC W/AUTO DIFF WBC Comments: copy to Dr. Madsne fax [phone]; PATIENT WAS FASTINGPERFORMED BY: [employer]a Water Ijljed9019 [facility] [id number] Information: [id number] (35438) Immature Grans (Abs) 0.0 {x10E3/uL} (Normal) Range: [...] 7.5 {x10E3/uL} (Normal) Range: 3.4-10.8 :22 PREALBUMIN (56917) Comments: PATIENT WAS FASTINGPERFORMED BY: [facility] [id number] Prealbumin 18 mg/dL (Abnormal) Range: 20-40 :22 URINALYSIS, W/ MICRO (99430) Comments: PATIENT WAS FASTINGPERFORMED BY: [facility] [id number] Microscopic Examination See below: (Normal) Comments: Microscopic was indicated and was performed. Nitrite, Urine Negative (Normal) Urobilinogen,Semi-Qn 0.2 mg/dL (Normal) Range: 0.0-1.9 Bilirubin Negative (Normal) Occult Blood Negative (Normal) Ketones Negative (Normal) Glucose Negative (Normal) Protein Negative (Normal) WBC Esterase Trace (Abnormal) Appearance Clear (Normal) Urine-Color Yellow (Normal) pH 6.5 (Normal) Range: 5.0-7.5 Specific [place] 1.013 (Normal) Range: 1.005-1.030 :22 METABOLIC PANEL, COMPREHENSIVE Comments: PATIENT WAS FASTINGPERFORMED BY: Phlebotek Phlebotomy SolutionsCaroMont [facility] [id number] (05326) ALT (SGPT) 7 [iU]/L (Normal) Range: 0-32 [...] Glucose, Serum 88 mg/dL (Normal) Range: 65-99 58-Raj-27444:07 PREALBUMIN (72695) Comments: Forward to Dr Yvonne Madsen at fax phone at [address] [place] [phone]. [place] [address]; PATIENT NOT FASTINGPERFORMED BY: [employer] [facility] Uxqfcf8812 [facility] [id number] Prealbumin 19 mg/dL (Abnormal) Range: 20-40 :07 CBC with manual diff (28666) Comments: Forward to Dr Yvonne Madsen at fax phone at [address] [facility] [place] [address]; PATIENT NOT FASTINGPERFORMED BY: [employer] LabLiligo.comrp Ulaqxp1379 [facility] 107926 [id number] Information: [id number] Immature Grans (Abs) 0.0 {x10E3/uL} (Normal) Range: [...] 3.77-5.28 WBC 7.7 {x10E3/uL} (Normal) Range: 3.4-10.8 3-Cpv-635315:09 URINE ERICA CULTURE-IDENTIFICATN Comments: PATIENT NOT FASTINGPERFORMED BY: LabCoSaint Barnabas Medical CenterOntico0022 [facility] [id number] Information: [id number] (22450) Result 1 MUG (Normal) Comments: Mixed urogenital flora10,000-25,000 colony forming units per mL Urine Final report (Normal) Culture,Comprehensive :48 Urinalysis, Office (10829) UA - LEUKOCYTE ESTERASE Small (Normal) UA - NITRITE Negative (Normal) URINE UROBILINGN JANETH TIMED Normal mg/dL (Normal) UA - PROTEIN Negative mg/dL (Normal) UA - PH 7 (Normal) UA - BLOOD Negative (Normal) UA - SPECIFIC GRAVITY 1.020 (Normal) UA - KETONES Negative mg/dL (Normal) UA - BILIRUBIN Negative (Normal) UA - GLUCOSE Negative (Normal) 24-Ejx-244097:07 URINE ERICA CULTURE-IDENTIFICATN Comments: PATIENT NOT FASTINGPERFORMED BY: Ayalogic Zoyspx1498 Woody 8eighty WearCaroMont Regional [facility] [id number] Information: SRC: URINE [id number] (37646) Antimicrobial MIHEAD (Normal) Comments: S = Susceptible; [...] pneumoniae (Normal) Urine Final report Culture,Comprehensive (Normal) 93-Qpl-59408:33 Urinalysis, Office (35494) UA - BILIRUBIN Negative (Normal) UA - BLOOD Non Hemolyzed Trace (Normal) UA - GLUCOSE Negative (Normal) UA - KETONES Negative mg/dL (Normal) UA - LEUKOCYTE ESTERASE Negative (Normal) UA - NITRITE Negative (Normal) UA - PH 7.0 (Normal) UA - PROTEIN Negative mg/dL (Normal) UA - SPECIFIC GRAVITY 1.015 (Normal) URINE UROBILINGN JANETH TIMED Normal mg/dL (Normal) 5-Fxk-172596:01 URINE ERICA CULTURE-IDENTIFICATN Comments: PATIENT NOT FASTINGPERFORMED BY: Ayalogic Wtiybx5051 [facility] Recognition SystemsSelect Specialty Hospital [facility] [id number] Information: [id number] (25782) Result 1 MUG (Normal) Comments: Mixed urogenital flora50,000-100,000 colony forming units per mL Urine Final report (Normal) Culture,Comprehensive 08-Nov-20129:00 Urinalysis, Office (34876) UA - BILIRUBIN Negative (Normal) UA - BLOOD Negative (Normal) UA - GLUCOSE Negative (Normal) UA - KETONES Negative mg/dL (Normal) UA - LEUKOCYTE ESTERASE Moderate (Normal) UA - NITRITE Negative (Normal) UA - PH 6.0 (Normal) UA - PROTEIN Negative mg/dL (Normal) UA - SPECIFIC GRAVITY 1.020 (Normal) URINE UROBILINGN JANETH TIMED Normal mg/dL (Normal) 73-Ara-265942:41 Thin prep Pap Comments: Source.............Cervical;EndocervicalNo. of containers..01 CYTYC Thin Prep VialPATIENT NOT FASTINGPERFORMED BY: Lab[address] [id number] Information: [id number] ([id number]) Note: PAPSMR (Normal) Comments: The Pap smear [...] gnant neopla sm of the cervixRashawnsscelestino Christensen, Network Lead (ASCP) 93-Box-486903:00 BILAT SCRN DIGITAL & CAD Radiology Report [...] suspiciousabnormality. Signed:Samuel Rhodes M.D.Oct at 1:41:11 PM [phone] Signed GP/GP If you are the referring physician and would like to consult with theradiologist who provided this interpretation, please contact Danie Goyal at [phone]. If this radiologist is unavailable, youwill be directed to another radiologist to assist. If you are a patient with a question regarding this report, pleasecont actyour referring physician directly. Professional Interpretation Provided By: Letsgofordinner, Phone , These documents contain legally protected [...] 10/28/12 1346 Sign by: Samuel Rhodes MD 5-Xab-758434:22 URINE ERICA CULTURE (JANETH Comments: PATIENT NOT FASTINGPERFORMED BY: Sp[employer] LabLiligo.com Suxkyh0221Atom EntertainmentSoutheast Missouri Hospital [id number] Information: SRC:UR [id number] COL COUNT) (58169) Result 1 BETAGB (Normal) Comments: Beta hemolytic [...] Final report (Normal) Culture,Comprehensive 14-Oct-20128:17 Urinalysis, Office (90759) UA - BILIRUBIN Negative (Normal) UA - BLOOD Non Hemolyzed Trace (Normal) UA - GLUCOSE Negative (Normal) UA - KETONES Negative mg/dL (Normal) UA - LEUKOCYTE ESTERASE Small (Normal) UA - NITRITE Negative (Normal) UA - PH 6.0 (Normal) Comments: 5.5 UA - PROTEIN Negative mg/dL (Normal) UA - SPECIFIC GRAVITY 1.025 (Normal) URINE UROBILINGN JANETH TIMED Normal mg/dL (Normal) 26-Sdm-41832:12 URINE ERICA CULTURE-JANETH COL Comments: PATIENT NOT FASTINGPERFORMED BY: [facility] Isoten9853 [facility] [id number] Information: SRC:UR [id number] COUNT (19422) Result 1 MUG (Normal) Comments: Mixed urogenital floraGreater than 100,000 colony forming units per mL Urine Culture,Comprehensive Final report (Normal) 69-Rwh-75020:10 Urinalysis, Office (09005) UA - BILIRUBIN Negative (Normal) UA - BLOOD Negative (Normal) UA - GLUCOSE Negative (Normal) UA - KETONES Negative mg/dL (Normal) UA - LEUKOCYTE ESTERASE Small (Normal) UA - NITRITE Negative (Normal) UA - PH 7.0 (Normal) UA - PROTEIN Negative mg/dL (Normal) UA - SPECIFIC GRAVITY 1.015 (Normal) URINE UROBILINGN JANETH TIMED Normal mg/dL (Normal) 22-Lst-405212:10 URINE ERICA CULTURE (JANETH Comments: PATIENT NOT FASTINGPERFORMED BY: [facility] Embark [facility] [id number] Information: SRC: [id number] COL COUNT) (08520) Result 1 BETAGB (Normal) Comments: Beta hemolytic [...] (CLSI 2011) Urine Final report (Normal) Culture,Comprehensive 23-Ecx-51450:48 Urinalysis, Office (64110) UA - BILIRUBIN Negative (Normal) UA - BLOOD Hemolyzed Small (Normal) UA - GLUCOSE Negative (Normal) UA - KETONES Small mg/dL (Normal) UA - LEUKOCYTE ESTERASE Large (Normal) UA - NITRITE Negative (Normal) UA - PH 6.0 (Normal) UA - PROTEIN Negative mg/dL (Normal) UA - SPECIFIC GRAVITY 1.025 (Normal) URINE UROBILINGN JANETH TIMED Normal mg/dL (Normal) 2-Qxm-273820:58 URINE ERICA CULTURE-IDENTIFICATN Comments: PATIENT NOT FASTINGPERFORMED BY: [facility] Wozslf8223 [facility] [id number] Information: [id number] (04153) Result 2 BETAGB (Normal) Comments: Beta hemolytic [...] 800 Colonies/mL (Normal) Urine Final report (Normal) Culture,[facility] 8-Bjz-836024:46 Urinalysis, Office (06225) UA - BILIRUBIN Negative (Normal) UA - BLOOD Non Hemolyzed Trace (Normal) UA - GLUCOSE Negative (Normal) UA - KETONES Negative mg/dL (Normal) UA - LEUKOCYTE ESTERASE Small (Normal) UA - NITRITE Negative (Normal) UA - PH 7.0 (Normal) UA - PROTEIN Negative mg/dL (Normal) UA - SPECIFIC GRAVITY 1.015 (Normal) URINE UROBILINGN JANETH TIMED Normal mg/dL (Normal) 32-Lyv-061413:00 URINE ERICA CULTURE-JANETH COL Comments: PATIENT NOT FASTINGPERFORMED BY: LabCo Mrnvgw7756 [facility] [id number] Information: SRC:UR [id number] COUNT (46390) Result 1 MUG (Normal) Comments: Mixed urogenital flora10,000-25,000 colony forming units per mL Urine Final report (Normal) Culture,Comprehensive 86-Bsq-239838:35 Urinalysis, Office (54195) UA - BILIRUBIN Negative (Normal) UA - BLOOD Negative (Normal) UA - GLUCOSE Negative (Normal) UA - KETONES Negative mg/dL (Normal) UA - LEUKOCYTE ESTERASE Trace (Normal) UA - NITRITE Negative (Normal) UA - PH 7.0 (Normal) UA - PROTEIN Negative mg/dL (Normal) UA - SPECIFIC GRAVITY 1.015 (Normal) URINE UROBILINGN JANETH TIMED 2 mg/dL (Normal) :38 CALCIFIDIOL (78795) VIT D 25 Comments: PATIENT WAS FASTINGPERFORMED BY: [employer] [facility] [id number] Vitamin D, 25-Hydroxy 37.7 ng/mL (Normal) Range: 30.0-100.0 Comments: Vitamin D deficiency has been defined by the Industry ofMarion Hospitalcine and an Endocrine Society practice guideline as alevel of serum 25-OH vitamin D less than 20 ng/mL (1,2).The Endocrine Society went on to further define vitamin Dinsufficiency as a level between 21 and 29 ng/mL (2).1. IOM (Industry of Medicine). 2010. Dietary reference intakes for calcium and D. [place]: The National Academies Press.2. Aaron MF, Curry [place], Viet ALLISON, et al. Evaluation, treatment, and prevention of vitamin D deficiency: an Endocrine Society clinical practice guideline. JCEM. 2010; 96(7):1911-30. :38 Lipid Panel (42798) Comments: PATIENT WAS FASTINGPERFORMED BY: [employer]70 [facility] [id number] LDL/HDL Ratio 1.1 {ratio_units} (Normal) Range: 0.0-3.2 LDL Cholesterol Calc 81 mg/dL (Normal) Range: 0-99 VLDL Cholesterol Donovan 22 mg/dL (Normal) Range: 5-40 HDL Cholesterol 76 mg/dL (Normal) Comments: According to ATP-III Guidelines, HDL-C >59 mg/dL is considered anegative risk factor for CHD. Triglycerides 111 mg/dL (Normal) Range: 0-149 Cholesterol, Total 179 mg/dL (Normal) Range: 100-199 :38 CBC (Auto) (17935) Comments: PATIENT WAS FASTINGPERFORMED BY: [employer] [facility] [id number] Platelets 207 {x10E3/uL} (Normal) Range: 155-379 Comments: [...] 3.4-10.8 Comments: Please note reference interval change 60-Tir-18509:38 Metabolic Panel, Comments: PATIENT WAS FASTINGPERFORMED BY: [facility]6370 [facility] [id number] Information: [id number] Comprehensive (41623) ALT (SGPT) 7 [iU]/L (Normal) Range: 0-32 [...] Glucose, Serum 86 mg/dL (Normal) Range: 65-99 39-Yun-08699:09 Urinalysis, Office (07942) UA - BILIRUBIN Negative (Normal) UA - BLOOD Negative (Normal) UA - GLUCOSE Negative (Normal) UA - KETONES Negative mg/dL (Normal) UA - LEUKOCYTE ESTERASE Trace (Normal) UA - NITRITE Negative (Normal) UA - PH 6.0 (Normal) UA - PROTEIN Negative mg/dL (Normal) UA - SPECIFIC GRAVITY 1.020 (Normal) URINE UROBILINGN JANETH TIMED Normal mg/dL (Normal) 73-Xuq-88507:09 DEXA BONE DENSITY STUDY () Radiology Report [...] Rhodes M.D.November 01, 2011 at 10:15:09 AM [id number] Signed GP/GP If you are the referring phys ician and would like to consult with theradiologist who provided this interpretation, please contact Danie Goyal at [phone]. If this radiologist is unavailable, youwill be directed to a [facility] radiologist to assist. If you are a patient with a question regarding this report, pleasecontactyour referring physician directly. Professional Interpretation Provided By: Letsgofordinner, Phone [phone], These documents contain legally protected and confidential [...] 30/01 1022 Sign by: Samuel Rhodes MD 09-Rzm-38523:07 CBC with manual diff Comments: PATIENT WAS FASTINGPERFORMED BY: LabCoSaint Barnabas Medical CenterSchkwn8026 [facility] [id number] Information: [id number] (27142) Immature Grans (Abs) 0.0 {x10E3/uL} (Normal) Range: [...] 6.2 {x10E3/uL} (Normal) Range: 4.0-10.5 :07 CALCIFIDIOL (39005) VIT D 25 Comments: PATIENT WAS FASTINGPERFORMED BY: LabCoSaint Barnabas Medical CenterGzzhsx3105 [facility] [id number] Vitamin D, 25-Hydroxy 47.5 ng/mL (Normal) Range: 30.0-100.0 Comments: Vitamin D deficiency has been defined by the Industry ofMarion Hospitalcine and an Endocrine Society practice guideline as alevel of serum 25-OH vitamin D less than 20 ng/mL (1,2).The Endocrine Society went on to further define vitamin Dinsufficiency as a level between 21 and 29 ng/mL (2).1. IOM (Industry of Medicine). 2010. Dietary reference intakes for calcium and D. [place]: The National Academies Press.2. Aaron MF, Curry EVANS, Viet ALLISON, et al. Evaluation, treatment, and prevention of vitamin D deficiency: an Endocrine Society clinical practice guideline. JCEM. 2010; 96(7):1911-30. :07 Metabolic Panel, Comprehensive Comments: PATIENT WAS FASTINGPERFORMED BY: ABOVE SolutionsMckenzie Memorial Hospital6370 [facility] [id number] (65136) ALT (SGPT) 7 [iU]/L (Normal) Range: 0-40 [...] Glucose, Serum 87 mg/dL (Normal) Range: 65-99 81-Xcf-73541:07 Lipid Panel (82038) Comments: PATIENT WAS FASTINGPERFORMED BY: [facility]6370 [facility] [id number] LDL/HDL Ratio 1.2 {ratio_units} (Normal) Range: 0.0-3.2 [...] 100-199 Comments: Please note reference interval change 00-Zvt-194294:46 BILAT SCRN DIGITAL & CAD Radiology Report See Note (Normal) Comments: MAMMOGRAPHY - BILATERAL SCREENING REASON FOR EXAM: Female, 71 years old. Routine annual screeningexamination. PERTINENT HISTORY: Sister with breast cancer. TECHNIQUE: Digital examinat ion. Mediol ateral oblique (MLO) andcraniocaudad (CC) views of both breasts were obtained. CAD: CAD wasperformed on this study. COMPARISON: Comparison is made with prior examinations dated July and [facility] 2009. FINDINGS:The breast composition is heterogeneously [...] Rhodes M.D.October 26, 2011 at 11:14:07 AM [id number] Signed GP/GP If you are the referring physician and would like to consult with ther adiologist who provided this interpretation, please contact Danie Goyal at [phone]. If this radiologist is unavailable, youwill be directed to another radiologist to assist. If you are a patient with a question regarding this report, pleasecontactyour referring physician directly. Professional Interpretation Provided By: Letsgofordinner, Phone , These documen ts contain legally [...] 10/26/11 1121 Sign by: Samuel Rhodes MD 32-Tya-575609:17 Thin prep Pap Comments: Source.............Cervical;EndocervicalNo. of containers..01 CYTYC Thin Prep VialPATIENT NOT FASTINGPERFORMED BY: [facility] Enmzhpgskz[address] [facility] [place] [id number] Information: [id number] ([id number]) Note: PAPSMR (Normal) Comments: The Pap smear [...] neopla sm of the cervixElizabeth July Joe, Network Lead (ASCP) 90-Ugw-317462:04 BILAT DIA DIGITAL & CAD Radiology Report [...] 08/03/10 1404 Sign by: Samuel Rhodes MD 72-Okb-52309:52 UNILAT RT DIAG DIGITAL & CAD Radiology [...] Category 3: Probably Benign Finding - Initial Lkxbj-BmdtmkikArgotb-kd Suggested. A letter regarding these results will [...] Report See Note (Normal) Comments: Exam Number: [id number] CLINICAL:The patient is a 61 day old woman who is postmenopausal with pastuse of hormone replacement therapy. EXAMINATION:DUAL ENERGY X-RAY ABSORPTIOMETRY / DEXA. TECH NIQUE:Bone D ensity Measurements (BMD) of lumbar spine and bilateral hipswere obtained using a [employer] scanner.. COMPARISON:2001 at 2006 FINDINGS: Lumbar Spine [...] Foundation http://www.nof.org Reported By: JANNY SALEH M.D. 18-Bel-832505:00 Thin prep Pap Comments: Source.............Cervical;EndocervicalNo. of containers..01 CYTYC Thin Prep VialPATIENT NOT FASTINGPERFORMED BY: [facility] [address] [id number] Information: [id number] ([id number]) Note: PAPSMR (Normal) Comments: The Pap smear [...] MALIGNANCY.THIS SPECIMEN WAS RESCREENED PART OF OUR WINERY CELLAR HAND PROGRAM.Satisfactory for evaluation. Endocervical and/or squamous metaplasticc ells (endoce rvical component) are present.V76.2 ; Screening for malignant neoplasm of the cervixKlaudia Nelson CytotechnologistNatalia Cutler, Supervisory Network Lead (ASCP) 72-Dgg-23571:29 Metabolic Panel, Comments: PATIENT WAS FASTINGPERFORMED BY: [facility] Tooiux8496 [facility] [id number] Information: [id number] Comprehensive (81496) ALT (SGPT) 10 [iU]/L (Normal) Range: 0-40 [...] Glucose, Serum 87 mg/dL (Normal) Range: 65-99 05-Nox-32035:29 CALCIFIDIOL (22237) VIT D 25 Comments: PATIENT WAS FASTINGPERFORMED BY: [employer] [facility] Vwlvzt6455 [facility] [id number] Vitamin D, 25-Hydroxy 25.2 ng/mL (Abnormal) Range: 32.0-100.0 Comments: Recent studies consider the lower limit of 32.0 ng/mL to be athreshold for optimal health.Alex MCKOY. J Nutr. 2004;135(2):317-22. :29 Lipid Panel (80951) Comments: PATIENT WAS FASTINGPERFORMED BY: LabCoSaint Barnabas Medical CenterWelhes3851 [facility] [id number] LDL Cholesterol Calc 104 mg/dL (Abnormal) Range: [...] With Differential/Platelet Comments: PATIENT WAS FASTINGPERFORMED BY: S-cubismSaint Barnabas Medical CenterUkgxzh6986 [facility] [id number] Baso (Absolute) 0.0 {x10E3/uL} (Normal) Range: 0.0-0.2 [...] 11.7-15.0 WBC 7.2 {x10E3/uL} (Normal) Range: 4.0-10.5 95-Mgq-07657:41 Comp. Metabolic Panel (14) Comments: PATIENT WAS FASTINGPERFORMED BY: LabCoSaint Barnabas Medical CenterGyjats2670 [facility] [id number] A/G Ratio 1.1 (Normal) Range: 1.1-2.5 Albumin, [...] Serum 85 mg/dL (Normal) Range: 65-99 If -Venezuelan >60 mL/min (Normal) Range: 60-128 Comments: Note: [...] With LDL/HDL Comments: PATIENT WAS FASTINGPERFORMED BY: [employer]70 [facility] [id number] Ratio Cholesterol, Total 210 mg/dL (Abnormal) Range: [...] Microscopic Examination Comments: PATIENT WAS FASTINGPERFORMED BY: [employer]70 [facility] [id number] Bacteria None seen (Normal) Crystal Type Amorphous Sediment (Normal) Crystals Present (Abnormal) Epithelial Cells (non renal) >10 {/hpf} (Abnormal) Range: 0 - 10 Mucus Threads Present (Abnormal) RBC 0-3 {/hpf} (Normal) Range: 0 - 3 WBC 11-30 {/hpf} (Abnormal) Range: 0 - 5 :41 Urinalysis, Routine Comments: PATIENT WAS FASTINGPERFORMED BY: [employer]70 [facility] [id number] Appearance Clear (Normal) Bilirubin Negative (Normal) Glucose Negative (Normal) Ketones Negative (Normal) Microscopic Examination See below: (Normal) Nitrite, Urine Negative (Normal) Occult Blood Negative (Normal) pH 7.5 (Normal) Range: 5.0-7.5 Protein Negative (Normal) Specific [place] 1.018 (Normal) Range: 1.005-1.030 Urine-Color Yellow (Normal) Urobilinogen,Semi-Qn 0.2 mg/dL (Normal) Range: 0.0-1.9 WBC Esterase 3+ (Abnormal) :13 KNEE,4 OR MORE VIEWS Radiology Report See Note (Normal) Comments: Exam Number: [id number] LEFT KNEE - VIEWS STATEMENTPain. PRIOR STUDIESNone. No acute fracture or joint dislocation is shown. There is no jointeffusion. No suspicious bone lesions or pathologic calcific ations. There is mild narrowing over the medial joint compartment. IMPRESSIONMild narrowing of the medial joint compartment, otherwise negativeleft knee. Reported By: GRACE CORDERO M.D. 0-Jbh-483439:55 Pap Lb, rfx HPV Comments: Source.............Cervical;EndocervicalNo. of containers..01 CYTYC Thin Prep VialPERFORMED BY: LabCo[address] [id number] all pth . . (Normal) DIAGNOSIS: SPRCS (Normal) Comments: NEGATIVE FOR INTRAEPITHELIAL LESION AND MALIGNANCY.Satisfactory for evaluation. Endocervical and/or squamous metaplasticcells (endocervical component) are present.V72.31 ; Routine gynecolog ical examina Dayna Rasmussen Network Lead (ASCP) Note: PAPSMR (Normal) Comments: The Pap [...] Report See Note (Normal) Comments: Exam Number: [id number] BONE DENSITOMETRY TECHNIQUE Bone densitometry of the [...] density is measured at 6.2% greater than yc6106. The T-value of the left femoral neck [...] cervix Planned Observations CBC WITH MANUAL DIFF (04819)Indication: Impaired fasting glucose On: 07-Rue-888200:39 Request Metabolic Panel, Comprehensive (31544)Indication: Hyperkalemia On: 80-Ofr-468712:32 Request Comments: re check in 4 weeks POTASSIUM URINE (05575)Indication: Hyperkalemia On: 50-Quu-331849:43 Request Comments: re check in 4 weeks CBC with auto diff (46704)Indication: Abdominal pain On: :03 Request Metabolic Panel, Comprehensive (90455)Indication: Abdominal pain On: :03 Request Lipase (65027)Indication: Abdominal pain On: :28 Request Amylase (95139)Indication: Abdominal pain On: :28 Request CBC (Auto) (07286)Indication: Abdominal pain On: :27 Request Metabolic Panel, Comprehensive (40768)Indication: Abdominal pain On: :27 Request URINE ERICA CULTURE-JANETH COL COUNT (67479)Indication: UTI (lower urinary tract infection) On: :50 Request URINE ERICA CULTURE-JANETH COL COUNT (67917)Indication: UTI (lower urinary tract infection) On: :40 Request URINE ERICA CULTURE-IDENTIFICATN (35099)Indication: Urinary frequency On: :47 Request Comments: recheck after finish antibiotic URINALYSIS (94133)Indication: Urinary frequency On: :47 Request Thin prep Pap (47317)Indication: Screening for malignant neoplasm of cervix On: :20 Request URINALYSIS (73807)Indication: Screening for malignant neoplasm of cervix On: 1-Lvu-466914:19 Request URINALYSIS (39927)Indication: Screening for malignant neoplasm of cervix On: :19 Request CBC (Auto) (50332)Indication: Screening for malignant neoplasm of cervix On: :18 Request Metabolic Panel, Comprehensive (00507)Indication: Screening for malignant neoplasm of cervix On: :18 Request Lipid Panel (76613)Indication: Screening for malignant neoplasm of cervix On: :18 Request Planned Encounters Medical; [facility] 6 Month Fu - On: 23-May-2018 8:45 Comprehensive Internal Medicine Raine Gomez MD, MD, Dana M Planned Procedures Bone Density StudyBy: Jason GARRETT, On: 08-Nov-2017 Intent Raine Gross MD Comments: schedule after 11-15-17 MAMMOGRAM BREAST BILATERAL SCREENING On: 08-Nov-2017 Intent DIGITAL (60825)By: Raine Gomez MD Comments: schedule after 11-16-17 M Riane Gomez MD INJECTION, PROLIA (J0897)By: Visit, On: 01-Aug-2017 Intent Nurse Comments: pt own med lot [id number] exp 10/25 given sq lt arm Flu Vaccine (Quadrivalent) [id number]: On: 23-Nov-2016 Intent Raine Gomez MD, MD, Dana Comments: Lot #[id number]-07/23/17ite-L dltd, IMDose prefilled syringegiven by:MLong, LPNVIS and ABN signed M Ear Irrigation (70397)By: Jason On: 01-Sep-2016 Intent Raine GARRETT MD, Dana M Comments: Ear Irrigation performed on:bilateralAmount/color removed cerumen: large amountOUtcome:clear and tolerated Wax CurettesBy: Raine Gomez MD On: 01-Sep-2016 Intent Raine Gomez MD SCREENING DIGITAL TOMOSYNTHESIS OF On: 01-Sep-2016 Intent BREAST (66019)By: Raine Gomez MD Comments: 10-22 Raine Gomez MD INJECTION, PROLIA (J0897)By: Visit, On: 01-Aug-2016 Intent Nurse Comments: [id number]/prefilled syringeR arm, IMML Long, CAT AND DOG BATHER Flu Vaccine (Quadrivalent) 10082Vk: On: 20-Oct-2015 Intent Raine Gomez MD, MD, Dana Comments: FLUlot: [id number]:08/04/16site:Lt deltoidroute:IMdose:.5mlDEMICK, MA M Wax CurettesBy: Raine Gomez MD On: 19-Aug-2015 Intent Raine Gomez MD Ear Irrigation (15670)By: Jason On: 19-Aug-2015 Intent Raine GARRETT MD, Dana M DEXA SCAN AXIAL SKELETON (68439)By: On: 19-Aug-2015 Intent Raine Gomez MD, MD, Dana Comments: after 10-21 M MAMMOGRAM, SCREENING, BOTH BREAST On: 19-Aug-2015 Intent (27653)By: Raine Gomez MD Comments: after 9-16 due Raine Gomez MD INJECTION, PROLIA (J0897)By: Jason On: 12-Aug-2015 Intent Raine GARRETT MD, Dana M Comments: prolialot:[id number]:ite:lt subqroute:subqdose:60mgD.KP Tian MAMMOGRAM, SCREENING, BOTH BREAST On: 28-May-2015 Intent (01637)By: Raine Gomez MD, MD, Dana M DEXA SCAN AXIAL SKELETON (19259)By: On: 28-May-2015 Intent Raine Gomez MD, MD, Dana M INJECTION, PROLIA (J0897)By: Jason On: 01-Feb-2015 Intent Raine GARRETT MD, Dana M Comments: lot: [id number]: ite/route: L arm/SQamt: prefilled syringeVIS signed when applicableHills & Dales General Hospitaldeniz [facility] ADMINISTRATION OF INFLUENZA VIRUS On: 02-Nov-2014 Intent VACCINE (G0008)By: Raine Gomez MD, MD, Dana M Toradol Injection, 30 mg (J1885)By: On: 03-Sep-2014 Intent Raine Gomez MD, MD, Dana Comments: Lot:[id number]:04/05/2016Dose:30mgRoute:imSite:r hipGiven By:JKMMARTIN Dunlap Phenergan Injection, up to 50 mg On: 03-Sep-2014 Intent (J2550)By: Raine Gomez MD Comments: 25 mg IV Raine Gomez MD INFUSION, NORMAL SALINE SOLUTION , On: 03-Sep-2014 Intent 1000 CC (Special Coverage Comments: IV Therapy clgznawbm75U, 1 inchSite: L acTolerated: moderately wellno redness or swelling, no s/s infiltrationER, Edgarergan push - DB, [id number] Instructions Apply. See MCM: 2049) (J7030)By: Raine Gomez MD, MD, Dana M Nuclear Medicine - HIDA w/CPKBy: On: 03-Sep-2014 Intent Raine Gomez MD, MD, Dana M INJECTION, PROLIA (J0897)By: Juan Carlos Shah: 30-Jul-2014 Intent Aura Comments: lot:[id number]:10.17route:SQdose:60mgSite:L armgiven by: Michelle Shah CMA Ultrasound - PelvisBy: Jason GARRETT, On: 24-Jun-[address] - Abdomen & Pelvis (IV Contrast On: 12-Jun-2014 Intent Needed)By: Raine Gomez MD, MD, Dana M Ultrasound - GallbladderBy: Ciesa On: 08-Jun-2014 Intent MANAGER VALIDATIONKarla INJECTION, PROLIA (J0897)By: Anjum On: 03-Feb-2014 Intent Yesika DE PAZ Comments: lot [id number] 6.17left BALDEV Mckeon ADMINISTRATION OF INFLUENZA VIRUS On: 07-Nov-2013 Intent VACCINE (G0008)By: Visit, Nurse Comments: Lot #[id number]-0.2015Site-L dltd, IMDose prefilled syringegiven by:BALDEV TobarVIS and ABN signed FLU VAC, SPLIT, >3 YEARS, INTRAMUSC On: 07-Nov-2013 Intent (66876)By: Visit, Nurse Bone Density StudyBy: Jason GARRETT, On: 30-Oct-2013 Intent Raine Gross MD BILATERAL MAMMOGRAMS (95153)By: On: 30-Oct-2013 Intent Raine Gomez MD, MD, Dana M Radiology - ChestBy: Jason GARRETT, On: 27-Oct-2013 Intent Raine Gross MD EKG (21925)By: Raine Gomez MD On: 27-Oct-2013 Intent Raine [...] Intent ()By: Raine Gomez MD Comments: Lot #:[id number] date:mount given:2ml Route: intra articular Site given:left knee Given By: Raine Honeycutt MD DRAIN/INJECT MAJOR JOINT OR BURSA On: 13-May-2013 Intent (54205)By: Raine Gomez MD, MD, Dana M Kenalog Injection, 10 mgm On: 03-Feb-2013 Intent (J3301)By: Raine Gomez MD Comments: kenalog 1 continue current treatment plan llot # [id number] 06-17, bupivacaine lot#[id number] Raine Gomez MD Kenalog [...] SPLIT, >3 YEARS, INTRAMUSC On: 28-Oct-2012 Intent (58497)By: Lula Flores Pap Smear, Medicare (Q0091)By: On: 28-Oct-2012 Intent Raine Gomez MD, MD, Dana M Pelvic and Breast, Medicare On: 28-Oct-2012 Intent (G0101)By: Raine Gomez MD, MD, Dana M MAMMOGRAM, SCREENING, BOTH BREASTS On: 28-Oct-2012 Intent (19900)By: Raine Gomez MD, MD, Dana M Kenalog [...] Dana M SPECIMEN HANDLING/TRANSPORT On: 23-Jul-2012 Intent (43611)By: Sonia Phillips LPN DXA, BONE DENSITY, AXIAL SKELETON On: 26-Oct-2011 Intent (88202)By: Raine Gomez MD, MD, Dana M MAMMOGRAM, SCREENING, BOTH BREASTS On: 26-Oct-2011 Intent (18817)By: Raine Gomez MD, MD, Dana M EKG (34998)By: Raine Gomez MD On: 26-Oct-2011 Intent Raine Gomez MD Comments: see scanned document of test done to see results reviewed today with patient FLU VAC, SPLIT, >3 YEARS, INTRAMUSC On: 26-Oct-2011 Intent (94110)By: DANIAL Mayorga Comments: Lot #:[id number] date:ount given:prefilled syringeRoute: IMSite given:Given by: VIS signed ADMINISTRATION OF INFLUENZA VIRUS On: 26-Oct-2011 Intent VACCINE (G0008)By: DANIAL Mayorga Breast Diagnostic - BilateralBy: On: 03-Apr-2011 Intent Raine Gomez MD, MD, Dana M Breast Diagnostic - BilateralBy: On: 04-Aug-2010 Intent Raine Gomez MD, MD, Dana M PNEUM VAC ADLT/IMUMNOSPR, SBC/INTRM On: 06-Jun-2010 Intent (31322)By: Raine Gomez MD Comments: lot # [id number]- 04/09/1123oryj-KOCVsvggo-KOhihj- 0.5 ML tolerated well Raine Gómez LPN, MD TD Injection , IM (26040)By: On: 06-Jun-2010 Intent Raine Gomez MD, MD, Dana Comments: lot # [id number]- 12/21/1104qpda-ORDQpnpfu-PMtvej- 0.5ML tolerated well Katie Dunlap ADMINISTRATION OF PNEUMOCOCCAL On: 06-Jun-2010 Intent VACCINE (G0009)By: Raine Gomez MD, MD, Dana M Inhaler Demonstration (27037)By: On: 30-May-2010 Intent Karla Tabares CNP Pulse Oximetry (38130)By: Rayshawn KUNZ, On: 30-May-2010 Intent Shira Aerosol Treatment (37932)By: Rayshawn On: 30-May-2010 Intent Karla KUNZ Eprescribed [...] Pap Smear, Medicare (Q0091)By: On: 22-Oct-2009 Intent Ranie Gomez MD, MD, Dana M Pelvic and Breast, Medicare On: 22-Oct-2009 Intent (G0101)By: Raine Gomez MD, MD, Dana M MAMMOGRAM, SCREENING, BOTH BREASTS On: 22-Oct-2009 Intent (11638)By: Raine Gomez MD, MD, Dana M DXA, BONE DENSITY, AXIAL SKELETON On: 22-Oct-2009 Intent (66800)By: Raine Gomez MD, MD, Dana M FLU VAC, SPLIT, >3 YEARS, INTRAMUSC On: 05-Nov-2008 Intent (69062)By: Mast Amanda ROBERTS ADMINISTRATION OF INFLUENZA VIRUS On: 05-Nov-2008 Intent VACCINE (G0008)By: Mast ARMANDO, Amanda ADMINISTRATION OF PNEUMOCOCCAL On: 12-Sep-2007 Intent VACCINE (G0009)By: Raine Gomez MD, MD, Dana M PNEUM VAC ADLT/IMUMNOSPR, SBC/INTRM On: 12-Sep-2007 Intent (89567)By: Raine Gomez MD, MD, Dana M ELECTROCARDIOGRAM, COMPLETE (ECG) On: 12-Sep-2007 Intent (47410)By: Raine Gomez MD, MD, Dana M Pulse Oximetry (65535)By: Jason On: 12-Sep-2007 Intent Raine GARRETT MD, Dana M Pap Smear, Medicare (Q0091)By: On: 12-Sep-2007 Intent Raine Gomez MD, MD, Raine Dunlap Pelvic and Breast, Medicare On: 12-Sep-2007 Intent (G0101)By: Raine Gomez MD, MD, Dana M MAMMOGRAM, SCREENING, BOTH BREASTS On: 12-Sep-2007 Intent (54846)By: Raine Gomez MD, MD, Dana M Bone Density StudyBy: Jason GARRETT, On: 26-Jun-2006 Intent Raine Gross MD MAMMOGRAM, SCREENING, BOTH BREASTS On: 26-Jun-2006 Intent (94550)By: Raine Gomez MD, MD, Dana M Pap [...] M INJECTION, PROLIA Ordered: 03-Feb-2014 Pending Slarb CAT AND DOG BATHER, Yesika INJECTION, PROLIA Ordered: 12-Aug-2015 Pending Jason [...] the patient's care are other: (Dr Membreno Coalton).Encounter Diagnosis: Annual Medicare Physical (V70.0) Comprehensive Internal [...] (10 End: 27-Oct-2013 11: Dr. Sonny Young, [place] [phone]) . There have been no problems with [...]
--- OUTSIDE RECORDS SUMMARY | 2018-02-13 03:59 | XMS RPT_ITS ---
:1940 Author Organization OHIP Care Team Providers Name Role Phone Raine Goemz Attending Unavailable Raine Gomez Primary Care Unavailable WARD RUFFIN Referring Unavailable Raine Gomez Attending Unavailable Raine Gomez Primary Care Unavailable PROBLEMS PROBLEMS DATE TYPE CONDITION / CODE ATTENDING STATUS SOURCE 01/07/2018 Unknown Z12.31 - Raine Gomez Active [place] Encounter for [facility] screening [facility] mammogram for Repository malignant neoplasm of breast / Z12.31(ICD-10) PROCEDURES PROCEDURES No Procedure Records FoundRESULTS RESULTS DIAG MAMM W/CAD, Observed: 01/02/2018 Status: F Source: ROB UNILAT 1:41 PM [facility] REPOSITORY [facility] Imaging Services [address] [place] [address] DIAG MAMM W/CAD, UNILAT MR#: [id number] Acct: [id number] Name: ARIEL MATA Rep #: [id number] : 1940 F 77 From: Samuel Rhodes MD PCP: Raine Gomez MD Status: REG CLI Study: DIAG MAMM W/CAD, UNILAT Date of Exam: 01/02/18 Exam# [id number] Ordering Dr: Raine Gomez MD MAMMOGRAPHY - UNILATERAL DIAGNOSTIC: LEFT BREAST REASON FOR EXAM: Female, 77 years old. Abnormal screening mammogram. PERTINENT HISTORY: Sister with breast cancer. TECHNIQUE: Compression spot views of the left breast as well as a 90 degree lateral view were obtained. CAD: Full Field Digital Mammography with Computer Added Detection was performed. COMPARISON: Comparison is made with prior mammogram dated January 01, 2018. FINDINGS: Breast Composition: The breasts are heterogeneously dense, which may obscure small masses. There are no dominant masses or suspicious calcifications. The previously seen questionable nodular density on [...] Samuel Rhodes MD at 14:50 EST Tel [phone], Service support , CC: Raine Gomez MD Shipping/Receiving Clerk: Signed SCREENING MAMM (CAD), Observed: 01/01/2018 Status: F Source: ROB BILAT 12:28 PM [facility] [place] [place] REPOSITORY [facility] Imaging Services [address] [place] [address] SCREENING MAMM (CAD), BILAT MR#: [id number] Acct: [id number] Name: MATAARIEL Jewel Rep #: [id number] : 1940 F 77 From: Samuel Rhodes MD PCP: Raine Gomez MD Status: REG CLI Study: SCREENING MAMM (CAD), BILAT Date of Exam: 01/01/18 Exam# [id number] Ordering Dr: Raine Gomez MD MAMMOGRAPHY - [...] 16, 2015. FINDINGS: Breast Composition: The breasts are heterogeneously [...] are identified. BI/SCREENING MAMM (CAD), BILAT IMPRESSION: Suggestion of a 6.1 mm nodular density in the lateral aspect of the left breast as seen on the craniocaudad view. The patient will be called for additional views of the breast. Recall Side: Left Breast ASSESSMENT CATEGORY: BIRADS Category 0: Incomplete. Need additional imaging evaluation. A letter regarding these results will be sent to the patient by the facility within 30 days. Approximately 10% of breast cancers are not detected by mammography. A normal mammogram should not delay biopsy of a clinically suspicious abnormality. [id number] Electronically Signed: Samuel Rhodes MD at 14:24 EST Tel [phone], Service support , CC: Raine Gomez MD Shipping/Receiving Clerk: Signed DEXA BONE DENSITY Observed: 01/01/2018 Status: F Source: [place] STUDY 12:28 PM [facility] [place] [place] REPOSITORY [facility] Imaging Services [address] [place] [address] Dexa Bone Density Study MR#: [id number] Acct: [id number] Name: ARIEL MATA Rep #: [id number] : 1940 F 77 From: Samuel Rhodes MD PCP: Raine Gomez MD Status: REG CLI Study: Dexa Bone Density Study Date of Exam: 01/01/18 Exam# [id number] Ordering Dr: Raine Gomez MD STUDY: DUAL ENERGY X-RAY ABSORPTIOMETRY / DXA REASON FOR EXAM: Female, 77 years old. The patient is postmenopausal. Loss of height. TECHNIQUE: Bone Mineral Density (BMD) measurements of lumbar spine and bilateral hips were obtained. COMPARISON: Comparison is made with prior study dated November 16, 2015. FINDINGS: Lumbar Spine (L1-L4): g/cm2 (1.215) / T-score (0.1) / Z-score (1.9) Findings are suggestive of normal bone density with a low fracture risk. Left Femur Total: g/cm2 (0.768) / T-score (-1.9) / Z- score (-0.1) Left Femoral Neck: g/cm2 (0.681) / T-score (-2.6) / Z- score (-0.6) Right Femur Total: g/cm2 (0.826) / T-score (-1.4) / Z- score (0.4) Right Femoral Neck: g/cm2 (0.745) / T-score (-2.1) / Z-score (-0.1) The T-Scores on the most recent prior examination were: Lumbar Spine (L1-L4): There has been improvement of bone density since the previous examination. Left Femur Total: which represents an improvement of 2.3%. Right Femur Total: which represents an improvement of 1.5%. BD/Dexa Bone Density Study IMPRESSION: [...] [email or web address] Electronically Signed: Samuel Rhodes MD at 9:33 EST Tel [phone], Service support , CC: Raine Gomez MD Shipping/Receiving Clerk: Signed ALLERGIES ALLERGIES DATE TYPE / CODE NAME / CODE REACTION SEVERITY SOURCE 10/07/2015 Drug hydrocodone hallucinations Unknown Rob Allergy/416 /[id number] [facility] [id number]([facility]RX[facility]) Repository ENCOUNTERS ENCOUNTERS ADMIT/DISCHARGE ACCOUNT ADMITTING ENCOUNTER LOCATION SOURCE NUMBER CLASS 01/02/2018 [id number] [place] [facility] ing:OPUS Repository 01/01/2018 [id number] Ambulatory Rob [place] [facility] ing:OPBD Repository PAYERS PAYERS ENCOUNTER GUARANTOR PAYER SUBSCRIBER SOURCE 01/02/2018 Ariel L Primary ARIEL L [place] [id number] Francoise Insurance:MEDICARE BAUERDOB: [place], [place] PART A [facility] [id number] Hospital [address]Uan: (330) Number: Repository [phone] () [id number] Date:2018-01-01 01/02/2018 Secondary ARIEL L Rob Insurance:TRANSAMERIC BAUERDOB: Community A LIFE INS COPolicy [id number] Hospital Number: Repository [id number] Date:[id number] [address]VJ: 01/02/2018 Tertiary NOT GIVENUNK Rob Insurance:SELF PAY [facility] Number: Effective Repository Date:2018-01-01 01/01/2018 ARIEL L Primary ARIEL L Rob [id number] [place] Insurance:MEDICARE [facility]: [place] PART A [facility] [id number] Hospital [address]Jlk: (330) Number: Repository [phone] () [id number] Date:2017-11-08 01/01/2018 Secondary ARIEL L [place] Insurance:TRANSAMERIC BAUERDOB: Community A LIFE INS COPolicy [id number] Hospital Number: Repository [id number] Date:4782-78-15KG [address] [facility] [place] [address]CP: 01/01/2018 Tertiary NOT GIVENUNK [place] Insurance:SELF PAY [facility] Number: Effective Repository Date:2017-11-08
== END ==
PROVIDERS: Family Provider Internal Medicine; PCP Internal Medicine; Visit Provider Internal Medicine
DX: Z12.31 Encounter for screening mammogram for malignant neoplasm of breast (principal); M81.0 Age-related osteoporosis without current pathological fracture
CPT/HCPCS: 77063; 77067; 77080

== ENCOUNTER → 2018-01-02 13:38 | Outpatient (CLI) | payer MEDICARE, OTHER, SELFPAY ==
--- NOTE | 2018-01-02 13:41 | BI_ITS ---
MAMMOGRAPHY - UNILATERAL DIAGNOSTIC: LEFT BREAST REASON FOR EXAM: Female, 77 years old. Abnormal screening mammogram. PERTINENT HISTORY: Sister with breast cancer. TECHNIQUE: Compression spot views of the left breast as well as a 90 degree lateral view were obtained. CAD: Full Field Digital Mammography with Computer Added Detection was performed. COMPARISON: Comparison is made with prior mammogram dated January 01, 2018. FINDINGS: Breast Composition: The breasts are heterogeneously dense, which may obscure small masses. There are no dominant masses or suspicious calcifications. The previously seen questionable nodular density on the caveat that view laterally is not seen at this time. No other significant abnormalities are identified. BI/DIAG MAMM W/CAD, UNILAT IMPRESSION: Stable unilateral diagnostic mammogram. One year follow-up mammogram recommended. (A) ASSESSMENT CATEGORY: BIRADS Category 1: Negative. A letter regarding these results will be sent to the patient by the facility within 30 days. Approximately 10% of breast cancers are not detected by mammography. A normal mammogram should not delay biopsy of a clinically suspicious abnormality. Electronically Signed: Samuel Rhodes MD at 14:50 EST Tel [phone], Service support ,
--- OUTSIDE RECORDS SUMMARY | 2018-02-27 23:06 | XMS RPT_ITS ---
:1940 Author Organization OHIP Care Team Providers Name Role Phone Raine Gomez Attending Unavailable Raine Gomez Primary Care Unavailable WARD RUFFIN Referring Unavailable Raine Gomez Attending Unavailable Raine Gomez Primary Care Unavailable PROBLEMS PROBLEMS DATE TYPE CONDITION / CODE ATTENDING STATUS SOURCE 01/07/2018 Unknown Z12.31 - Raine Gomez Active [place] Encounter for [facility] screening Hospital mammogram for Repository malignant neoplasm of breast / Z12.31(ICD-10) PROCEDURES PROCEDURES No Procedure Records FoundRESULTS RESULTS DIAG MAMM W/CAD, Observed: 01/02/2018 Status: F Source: ROB UNILAT 1:41 PM [facility] REPOSITORY [facility] Imaging Services [address] [place] [address] DIAG MAMM W/CAD, UNILAT MR#: [id number] Acct: [id number] Name: ARIEL MATA Rep #: [id number] : 1940 F 77 From: Samuel Rhodes MD PCP: Raine Gomez MD Status: REG CLI Study: DIAG MAMM W/CAD, UNILAT Date of Exam: 01/02/18 Exam# [id number] Ordering Dr: Raine Gomez MD MAMMOGRAPHY - [...] Samuel Rhodes MD at 14:50 EST Tel [phone], Service support , CC: Raine Gomez MD Cotton Program Technician: Signed SCREENING MAMM (CAD), Observed: 01/01/2018 Status: F Source: ROB BILAT 12:28 PM [facility] Imaging Services [address] [place] [address] SCREENING MAMM (CAD), BILAT MR#: [id number] Acct: [id number] Name: MATAARIEL Jewel Rep #: [id number] : 1940 F 77 From: Samuel Rhodes MD PCP: Raine Gomez MD Status: REG CLI Study: SCREENING MAMM (CAD), BILAT Date of Exam: 01/01/18 Exam# [id number] Ordering Dr: Raine Gomez MD MAMMOGRAPHY - [...] delay biopsy of a clinically suspicious abnormality. [id number] Electronically Signed: Samuel Rhodes MD at 14:24 EST Tel [phone], Service support , CC: Raine Gomez MD Cotton Program Technician: Signed DEXA BONE DENSITY Observed: 01/01/2018 Status: F Source: [place] STUDY 12:28 PM [facility] RE[facility] Imaging Services [address] [place] [address] Dexa Bone Density Study MR#: [id number] Acct: [id number] Name: ARIEL MATA Rep #: [id number] : 1940 F 77 From: Samuel Rhodes MD PCP: Raine Gomez MD Status: REG CLI Study: Dexa Bone Density Study Date of Exam: 01/01/18 Exam# [id number] Ordering Dr: Raine Gomez MD STUDY: DUAL [...] Samuel Rhodes MD at 9:33 EST Tel [phone], Service support , CC: Raine Gomez MD Cotton Program Technician: Signed ALLERGIES ALLERGIES DATE TYPE / CODE NAME / CODE REACTION SEVERITY SOURCE 10/07/2015 Drug hydrocodone hallucinations Unknown Rob Allergy/416 /[id number] [facility] [id number]([facility] (RXNORM) [facility]) Repository ENCOUNTERS ENCOUNTERS ADMIT/DISCHARGE ACCOUNT ADMITTING ENCOUNTER LOCATION SOURCE NUMBER CLASS 01/02/2018 [id number] Amb[place] [facility] ing:OPUS Repository 01/01/2018 [id number] Ambulatory [place] 2 [facility] ing:OPBD Repository PAYERS PAYERS ENCOUNTER GUARANTOR PAYER SUBSCRIBER SOURCE 01/02/2018 Ariel L Primary ARIEL L [place] [id number] Francoise Insurance:MEDICARE BAUERDOB: [place], [place] PART A [facility] [id number] Hospital [address]Xwm: (330) Number: Repository [phone] () [id number] Date:2018-01-01 01/02/2018 Secondary ARIEL L Rob Insurance:TRANSAMERIC BAUERDOB: Community A LIFE INS COPolicy [id number] Hospital Number: Repository [id number] Date:9766-47-11LI [address] [place] [address]KT: 01/02/2018 Tertiary NOT GIVENUNK Rob Insurance:SELF PAY [facility] Number: Effective Repository Date:2018-01-01 01/01/2018 ARIEL L Primary ARIEL L Rob [id number] [place] Insurance:MEDICARE [facility] [place] PART A [facility] [id number] Hospital [address]Wbi: (330) Number: Repository [phone] () [id number] Date:2017-11-08 01/01/2018 Secondary ARIEL L [place] Insurance:TRANSAMERIC BAUERDOB: Community A LIFE INS COPolicy [id number] Hospital Number: Repository [id number] Date:9293-23-96WZ [address]K[place]I [place] [address]HB: 01/01/2018 Tertiary NOT GIVENUNK [place] Insurance:SELF PAY [facility] Number: Effective Repository Date:2017-11-08
== END ==
PROVIDERS: Family Provider Internal Medicine; PCP Internal Medicine; Visit Provider Internal Medicine
DX: R92.8 Other abnormal and inconclusive findings on diagnostic imaging of breast (principal)
CPT/HCPCS: 77065

== ENCOUNTER → 2018-11-11 12:59 | Outpatient (CLI) | payer MEDICARE, OTHER, SELFPAY ==
[2015-10-07 08:00] VITALS: BMI 29.2
[2018-11-11 17:17] LABS: M R Staph aureus DNA By PCR Negative (Negative); Probe Check PASS; Specimen Processing Control PASS
== END ==
PROVIDERS: Family Provider Internal Medicine; PCP Internal Medicine; Referring Provider Internal Medicine; Visit Provider Internal Medicine
DX: Z20.818 Contact with and (suspected) exposure to other bacterial communicable diseases (principal)
CPT/HCPCS: 87641

== ENCOUNTER → 2019-01-07 07:00 | Outpatient (CLI) | payer MEDICARE, OTHER, SELFPAY ==
[2015-10-07 08:00] VITALS: BMI 29.2
--- NOTE | 2019-01-07 06:57 | BI_ITS ---
MAMMOGRAPHY - BILATERAL SCREENING REASON FOR EXAM: Female, 78 years old. Routine annual screening examination. PERTINENT HISTORY: Sister with breast cancer. TECHNIQUE: Digital bilateral breast anjelica (3D mammographic acquisition) in the CC and MLO projections. 2-D mediolateral oblique (MLO) and craniocaudad (CC) views of both breasts were obtained. CAD: Full Field Digital Mammography with Computer Added Detection was performed. COMPARISON: Comparison is made with prior mammogram dated January 01, 2018 and November 16, 2016. FINDINGS: Breast Composition: The breasts are heterogeneously dense, which may obscure small masses. There are no dominant masses or suspicious calcifications. No other significant abnormalities are identified. There has been no significant change since the prior study. BI/SCREEN MAMM (CAD) W/ANJELICA BILAT IMPRESSION: Stable bilateral screening mammogram. Yearly follow-up mammogram recommended. (A) ASSESSMENT CATEGORY: BIRADS Category 1: Negative. A letter regarding these results will be sent to the patient by the facility within 30 days. Approximately 10% of breast cancers are not detected by mammography. A normal mammogram should not delay biopsy of a clinically suspicious abnormality. [id number] Electronically Signed: Samuel Rhodes, at 8:52 EST , Service support ,
== END ==
PROVIDERS: Family Provider Internal Medicine; PCP Internal Medicine; Referring Provider Internal Medicine; Visit Provider Internal Medicine
DX: Z12.31 Encounter for screening mammogram for malignant neoplasm of breast (principal)
CPT/HCPCS: 77063; 77067

== ENCOUNTER → 2020-01-13 10:21 | Outpatient (CLI) | payer MEDICARE, OTHER, SELFPAY ==
[2015-10-07 08:00] VITALS: BMI 29.2
--- NOTE | 2020-01-13 10:25 | BI_ITS ---
MAMMOGRAPHY - BILATERAL SCREENING REASON FOR EXAM: Female, 79 years old. Routine annual screening examination. PERTINENT HISTORY: Sister with breast cancer. TECHNIQUE: Digital bilateral breast anjelica (3D mammographic acquisition) in the CC and MLO projections. 2-D mediolateral oblique (MLO) and craniocaudad (CC) views of both breasts were obtained. CAD: Full Field Digital Mammography with Computer Added Detection was performed. COMPARISON: Comparison is made with prior study dated 01/07/2019 and 01/01/2018. FINDINGS: Breast Composition: The breasts are heterogeneously dense, which may obscure small masses. There are no dominant masses or suspicious calcifications. No other significant abnormalities are identified. There has been no significant change since the prior study. BI/SCREEN MAMM (CAD) W/ANJELICA BILAT IMPRESSION: Stable bilateral screening mammogram. Yearly follow-up mammogram recommended. (A) ASSESSMENT CATEGORY: BIRADS Category 1: Negative. A letter regarding these results will be sent to the patient by the facility within 30 days. Approximately 10% of breast cancers are not detected by mammography. A normal mammogram should not delay biopsy of a clinically suspicious abnormality. [id number] Electronically Signed: Samuel Rhodes, at 12:47 EST , Service support ,
--- NOTE | 2020-01-13 10:31 | BD_ITS ---
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 COMPARISON: Comparison is made with prior study dated 01/01/2018. FINDINGS: Lumbar Spine (L1-L4): g/cm2 (1.280) / T-score (0.7) / Z-score (2.5) Findings are suggestive of normal bone density with a low fracture risk. Increased kyphosis. Left Femur Total: g/cm2 (0.768) / T-score (-1.9) / Z-score (0.0) Left Femoral Neck: g/cm2 (0.708) / T-score (-2.4) / Z-score (-0.3) Right Femur Total: g/cm2 (0.816) / T-score (-1.5) / Z-score (0.4) Right Femoral Neck: g/cm2 (0.725) / T-score (-2.2) / Z-score (-0.2) The T-Scores on the most recent prior examination were: Lumbar Spine (L1-L4): There has been improvement of bone density since the previous examination. Left Femur Total: which represents no significant change. . Right Femur Total: which represents a worsening of 1.2%. BD/Dexa Bone Density Study IMPRESSION: The patient is considered normal as outlined below according to World Ivan Organization (WHO) criteria with a high fracture risk. There has been worsening of bone density since the previous examination. Reference Information: The T-score is the number of standard deviations above or below the standard which is normal for young adults at their peak bone mineral density. The World Health Organization (WHO) interprets the T-scores as follows: Above -1 Normal bone density Between -1 and -2.5 Osteopenia Equal to / or below -2.5 Osteoporosis As a practical clinical guideline, osteopenia may be graded as follows: Mild -1 through -1.5 Moderate -1.6 through -2.0 Severe -2.1 through -2.4 The Z-score is the number of standard deviations above or below age-matched controls. A Z-score of less than -1.5 would be considered abnormal. References: 1. NIH Osteoporosis and Related Bone Diseases www osteo.org 2. International Society for Clinical Densitometry www iscd.org 3. National Osteoporosis Foundation www nof.org Electronically Signed: Samuel Rhodes, at 14:47 EST , Service support ,
== END ==
PROVIDERS: PCP Internal Medicine; Referring Provider Internal Medicine; Visit Provider Internal Medicine
DX: Z12.31 Encounter for screening mammogram for malignant neoplasm of breast (principal); M81.0 Age-related osteoporosis without current pathological fracture
CPT/HCPCS: 77063; 77067; 77080

== ENCOUNTER 2020-06-05 11:48 | Emergency (ER) | payer MEDICARE, OTHER, SELFPAY ==
[2020-06-05 11:49] VITALS: BP 152/93; PULSE 82; RESP 18; TEMP 36.4; O2SAT 99; BMI 26.5
--- NOTE | 2020-06-05 12:10 | ED.VIS.FALL ---
HPI HPI - Fall History of Present Illness Chief Complaint: Laceration Narrative Narrative: Patient reports that she tripped over her dog and fell hitting her mouth on the ground. She denies any loose teeth or malocclusion. No loss of consciousness. She is not on anticoagulants. She denies any neck, back, shoulder, wrist, or hip pain. Patient is unsure when her last tetanus shot was. However, she does not want 1 today. Tetanus Immunization: Unknown PFSH PFSH Home Medications multivitamin with folic acid [Thera] 1 tab PO DAILY 09/03/14 [History Last Taken Unknown] L.acidoph, paracasei,B. lactis 1 ea PO 09/04/14 [History Last Taken Unknown] Vitamin D3 1 tab PO DAILY 09/04/14 [History Last Taken Unknown] Calcium 500-Vit D3 200 Tablet 1 tab PO DAILY 10/07/15 [History Last Taken Unknown] Allergy/AdvReac Type Severity Reaction Status Date / Time hydrocodone Allergy hallucinati Verified 06/05/20 11:49 ons Social History Smoking Status: Never smoker ROS ROS ED Constitutional Constitutional ED: Denies chills, fever(s) or sweats Eyes Eyes: Denies change in vision ENT ENT ED: Denies sore throat Cardiovascular Cardiovascular: Denies chest pain Respiratory/Chest Respiratory/Chest: Denies cough, dyspnea or dyspnea on exertion Gastrointestinal Gastrointestinal: Denies abdominal pain, diarrhea, melena, nausea or vomiting Genitourinary Genitourinary ED: Denies dysuria or urinary frequency Musculoskeletal Musculoskeletal: Denies myalgias Integumentary Denies rash Neurologic Neurologic: Denies headache(s), paresthesias or weakness EXAM Physical Exam Const Vital Signs: 06/05/20 11:49 Temperature 97.6 F L Temperature Source Temporal Pulse Rate 82 Respiratory Rate 18 Blood Pressure 152/93 H Blood Pressure Mean 112 Pulse Ox 99 Oxygen Delivery Method Room Air Positive well nourished and well developed General Appearance ED: well developed HEENT HEENT Narrative: 2 cm laceration to the upper lip. This does not cross the vermilion border. There is no active bleeding. No loose teeth. No malocclusion. normocephalic Eyes PERRL Neck full ROM, no lymphadenopathy, supple and no JVD Neck Narrative: No vertebral tenderness. Full ROM without difficulty. Cleared by NEXUS criteria. General: Negative for tenderness Chest Wall Chest: Negative for tenderness Resp normal respiratory effort and clear to auscultation bilaterally Effort and Inspection: Negative for respiratory distress Cardio regular rate, regular rhythm and no murmurs Rate: regular rate Rhythm: regular rhythm GI normal to inspection, nondistended, normoactive bowel sounds, soft to palpation and non-tender GI Narrative: No pain in RUQ or LUQ specifically. No peritoneal signs. Back/Spine Back/Spine Narrative: No vertebral tenderness. Full ROM without difficulty. Extremity normal to inspection and full ROM General Extremety ED: Negative for edema or tenderness General Extremity: Negative for edema Neuro oriented x3, CN's II-XII intact bilaterally and no sensory deficits noted Sensorium / Orientation: awake and alert Motor Exam: strength 5/5 throughout Psych mental status grossly normal Skin no rashes or lesions noted MDM MDM MDM Narrative Medical decision making narrative: Patient is resting comfortably. She refused pain medications. She also refused a tetanus shot. The laceration to her lip does not require repair. Treatment plan: Patient will be discharged instructions to follow-up with her primary care physician in 1 week if her lip is not improving. She also instructed to speak with her primary care physician about when her last tetanus shot was and can have an update through the office if needed. Return to the emergency department for any worsening symptoms. Disposition: To home in improved and stable condition. Discharge Plan Triage Chief Complaint: Laceration ED Provider: Jonathan Johnson Dx/Rx/DC Orders Clinical Impression: Fall, Laceration of lip Instructions: ED Laceration Small or ... Prescriptions: No Action multivitamin with folic acid [Thera] 1 TABLET tablet 1 tab PO DAILY RF: 0 L.acidoph, paracasei,B. lactis 1 EACH capsule 1 ea PO RF: 0 Vitamin D3 1 tab PO DAILY RF: 0 Calcium 500-Vit D3 200 Tablet 1 tab PO DAILY RF: 0 Primary Care Provider: Raine Gomez Referrals: Raine Gomez MD [Primary Care Provider] - 1 Week if not improving
== END 2020-06-05 12:48 | disposition home or self-care (01) ==
LOC: ED 12:29
PROVIDERS: Emergency Provider Emergency Medicine; PCP Internal Medicine
DX: S01.511A Laceration without foreign body of lip, initial encounter (principal); W01.0XXA Fall on same level from slipping, tripping and stumbling without subsequent striking against object, initial encounter
CPT/HCPCS: 99282

== ENCOUNTER → 2020-10-20 09:41 | Outpatient (CLI) | payer MEDICARE, OTHER, SELFPAY ==
--- NOTE | 2020-10-20 09:44 | CDU_ITS ---
Reason For Study: DIZZINESS Rt. Velocities/BP Lt. Velocities/BP Prox CCA 61.2/12.9 cm/sec. Prox CCA 74.2/15.7 cm/sec. Mid CCA 65.1/18.1 cm/sec. Mid CCA 69.5/14.7 cm/sec. Dist CCA 55.9/15.5 cm/sec. Dist CCA 80.9/20.4 cm/sec. Prox ICA 37.0/10.6 cm/sec. Prox ICA 60.0/12.7 cm/sec. Mid ICA 57.5/19.7 cm/sec. Mid ICA 51.9/15.6 cm/sec. Dist ICA 69.8/18.8 cm/sec. Dist ICA 76.0/20.0 cm/sec. Rt. ICA/CCA = 69.8/65.1=1.1. Lt. ICA/CCA = 76.0/69.5=1.1. Prox ECA 76.8/7.7 cm/sec. Prox ECA 88.2/10.2 cm/sec. Rt. Vert. 40.5/12.2 cm/sec. Lt. Vert. 38.9/11.5 cm/sec. Right Extracranial There is homogeneous, smooth atherosclerotic plaque noted in the right common carotid artery. There is intimal thickening but no significant atherosclerotic plaque noted in the right internal carotid artery. There is homogeneous, smooth atherosclerotic plaque noted in the right external carotid artery. Antegrade flow is noted in the right vertebral artery. There is heterogeneous, irregular atherosclerotic plaque noted in the right bulb. Left Extracranial There is homogeneous, smooth atherosclerotic plaque noted in the left common carotid artery. There is homogeneous, smooth atherosclerotic plaque noted in the left internal carotid artery. There is homogeneous, irregular atherosclerotic plaque noted in the left external carotid artery. Antegrade flow is noted in the left vertebral artery. Procedure Carotid Duplex [id number]. This is a Carotid Duplex examination using B-mode, color flow and specral Doppler. Exam performed in department. VL/Carotid Duplex Ultrasound Interpretation Summary Calcific plaque with shadowing at the proximal right internal carotid artery wi th less than 50% stenosis Less than 50% stenosis right external carotid artery Minimal smooth plaque of the proximal left internal carotid artery with less th an 50% stenosis Less than 50% stenosis left external carotid artery Patent and antegrade vertebral arteries bilaterally No change from the blood flow screening examination of the carotids performed o n November 19, 2019 Ordering Physician: Raine Gomez Referring Physician: Raine Gomez Performed By: Danitza Nelson, AMANDA, RVT
== END ==
PROVIDERS: PCP Internal Medicine; Referring Provider Internal Medicine; Visit Provider Internal Medicine
DX: R42 Dizziness and giddiness (principal)
CPT/HCPCS: 93880

== ENCOUNTER → 2021-01-17 07:05 | Outpatient (CLI) | payer MEDICARE, OTHER, SELFPAY ==
--- NOTE | 2021-01-17 07:07 | BI_ITS ---
MAMMOGRAPHY - BILATERAL SCREENING REASON FOR EXAM: Female, 80 years old. Routine annual screening examination. PERTINENT HISTORY: Sister with breast cancer. TECHNIQUE: Digital bilateral breast anjelica (3D mammographic acquisition) in the CC and MLO projections. 2-D mediolateral oblique (MLO) and craniocaudad (CC) views of both breasts were obtained. CAD: Full Field Digital Mammography with Computer Added Detection was performed. COMPARISON: Comparison is made with prior study dated 01/13/2020 and 01/07/2019. FINDINGS: Breast Composition: The breasts are heterogeneously dense, which may obscure small masses. There are no dominant masses or suspicious calcifications. No other significant abnormalities are identified. There has been no significant change since the prior study. BI/SCRN MAMM (CAD)W/ANJELICA BILAT IMPRESSION: Stable bilateral screening mammogram. Yearly follow-up mammogram recommended. (A) ASSESSMENT CATEGORY: BIRADS Category 1: Negative. A letter regarding these results will be sent to the patient by the facility within 30 days. Approximately 10% of breast cancers are not detected by mammography. A normal mammogram should not delay biopsy of a clinically suspicious abnormality. [id number] Electronically Signed: Samuel Rhodes MD at 8:51 EST , Service support ,
== END ==
PROVIDERS: PCP Internal Medicine; Visit Provider Internal Medicine
DX: Z12.31 Encounter for screening mammogram for malignant neoplasm of breast (principal)
CPT/HCPCS: 77063; 77067

== ENCOUNTER → 2021-09-10 | Outpatient (CLI) | payer MEDICARE, OTHER, SELFPAY ==
--- NOTE | 2021-09-10 07:19 | MRI_ITS ---
STUDY: MRI BRAIN WITHOUT CONTRAST REASON FOR EXAM: Female, 81 years old. DIZZINESS TECHNIQUE: Standardized multiplanar fat and water weighted pulse sequences were obtained. COMPARISON: None. FINDINGS: There is mild cerebral atrophy with widening of the extra-axial spaces and ventricular dilatation. There are multiple white matter hyperintensities, distributed throughout the deep white matter tracts of the cerebral hemispheres, consistent with mild to moderate chronic white matter ischemic changes. There is no evidence for recent intracranial ischemia or other cause of cytotoxic edema on diffusion weighted imaging (DWI). Normal T2* images of the brain without demonstrated susceptibility artifact. There is no demonstrated hemosiderin stain. Normal bilateral basal ganglia. Normal thalami. There is no extra-axial fluid accumulation. Normal flow voids within the major intracranial circulation suggesting patency by spin echo criteria. Normal sella turcica, pituitary gland, infundibular stalk, optic chiasm and hypothalamus. Normal tectal plate and pineal gland. Normal midbrain, parrish and medulla. Normal cerebellum. Normal basal cisterns. Normal bilateral temporal bones. Normal bilateral internal auditory canals. No demonstrated orbital abnormality, within the constraints of a routine brain study. Normal visualized paranasal sinuses. Normal calvarium and skull base. Normal visualized soft tissue structures. Normal visualized upper cervical spine. MRI/Brain without Contrast IMPRESSION: 1. Chronic ischemic and involutional changes of the brain, as described above. 2. No demonstrated acute infarct or intracranial hemorrhage. Electronically Signed: Francisco Sanchez MD at 11:36 EDT ,
== END | disposition home or self-care (01) ==
LOC: MRI 07:00
PROVIDERS: PCP Internal Medicine; Visit Provider Internal Medicine
DX: R42 Dizziness and giddiness (principal)
CPT/HCPCS: 70551

== ENCOUNTER → 2022-01-18 | Outpatient (CLI) | payer MEDICARE, OTHER, SELFPAY ==
--- NOTE | 2022-01-18 10:58 | BI_ITS ---
MAMMOGRAPHY - BILATERAL SCREENING REASON FOR EXAM: Female, 81 years old. Routine annual screening examination. PERTINENT HISTORY: Sister with breast cancer. TECHNIQUE: Digital bilateral breast anjelica (3D mammographic acquisition) in the CC and MLO projections. 2-D mediolateral oblique (MLO) and craniocaudad (CC) views of both breasts were obtained. CAD: Full Field Digital Mammography with Computer Added Detection was performed. COMPARISON: Comparison is made with prior study dated 01/17/2021 and 01/13/2020. FINDINGS: Breast Composition: The breasts are heterogeneously dense, which may obscure small masses. There are no dominant masses or suspicious calcifications. No other significant abnormalities are identified. There has been no significant change since the prior study. BI/SCRN MAMM (CAD)W/ANJELICA BILAT IMPRESSION: Stable bilateral screening mammogram. Yearly follow-up mammogram recommended. (A) ASSESSMENT CATEGORY: BIRADS Category 1: Negative. A letter regarding these results will be sent to the patient by the facility within 30 days. Approximately 10% of breast cancers are not detected by mammography. A normal mammogram should not delay biopsy of a clinically suspicious abnormality. [id number] Electronically Signed: Samuel Rhodes MD at 12:07 EST ,
--- NOTE | 2022-01-18 11:27 | BD_ITS ---
STUDY: DUAL ENERGY X-RAY ABSORPTIOMETRY / DXA REASON FOR EXAM: Female, 81 years old. [id number] TECHNIQUE: Bone Mineral Density (BMD) measurements of lumbar spine and bilateral hips were obtained. COMPARISON: Comparison is made with prior study 01/13/2020. FINDINGS: Lumbar Spine (L1-L4): g/cm2 (1.074) / T-score (0.6) / Z-score (3.2) Findings are suggestive of normal bone density with a low fracture risk. Left Femur Total: g/cm2 (0.746) / T-score (-1.6) / Z-score (0.5) Left Femoral Neck: g/cm2 (0.580) / T-score (-2.4) / Z-score (-0.1) Right Femur Total: g/cm2 (0.806) / T-score (-1.1) / Z-score (1.0) Right Femoral Neck: g/cm2 (0.607) / T-score (-2.2) / Z-score (0.2) The T-Scores on the most recent prior examination were: Lumbar Spine (L1-L4): There has been worsening of bone density since the previous examination. Left Femur Total: which represents an improvement of 5.4%. Right Femur Total: which represents an improvement of 6.7%. BD/Dexa Bone Density Study IMPRESSION: The patient is considered osteopenic as outlined below according to World Ivan Organization (WHO) criteria with a high fracture risk. There has been improvement of bone density since the previous examination. Reference Information: The T-score is the number of standard deviations above or below the standard which is normal for young adults at their peak bone mineral density. The World Health Organization (WHO) interprets the T-scores as follows: Above -1 Normal bone density Between -1 and -2.5 Osteopenia Equal to / or below -2.5 Osteoporosis As a practical clinical guideline, osteopenia may be graded as follows: Mild -1 through -1.5 Moderate -1.6 through -2.0 Severe -2.1 through -2.4 The Z-score is the number of standard deviations above or below age-matched controls. A Z-score of less than -1.5 would be considered abnormal. References: 1. NIH Osteoporosis and Related Bone Diseases www osteo.org 2. International Society for Clinical Densitometry www iscd.org 3. National Osteoporosis Foundation www nof.org Electronically Signed: Samuel Rhodes MD at 11:16 EST ,
== END | disposition home or self-care (01) ==
LOC: OPBI 10:54
PROVIDERS: PCP Internal Medicine; Visit Provider Internal Medicine
DX: Z12.31 Encounter for screening mammogram for malignant neoplasm of breast (principal); M85.80 Other specified disorders of bone density and structure, unspecified site; Z78.0 Asymptomatic menopausal state
CPT/HCPCS: 77063; 77067; 77080

== ENCOUNTER → 2022-05-01 | Outpatient (CLI) | payer MEDICARE, OTHER, SELFPAY ==
[2022-05-01 14:22] LABS: Troponin-I HS 5 pg/mL (3.0-54.0)
== END | disposition home or self-care (01) ==
LOC: LABSPEC 13:59
PROVIDERS: PCP Internal Medicine; Referring Provider Internal Medicine; Visit Provider Internal Medicine
DX: R06.02 Shortness of breath (principal)
CPT/HCPCS: 84484

== ENCOUNTER → 2022-05-23 | Outpatient (CLI) | payer MEDICARE, OTHER, SELFPAY ==
--- NOTE | 2022-05-23 16:59 | STRESSREP_ITS ---
Stress Test Report Treadmill myocardial perfusion stress test. Indication; 82-year-old patient underwent treadmill sestamibi myocardial fusion study To evaluate for CAD Stress protocol: Resting EKG demonstrates. Normal sinus rhythm. Patient exercised according to standard Anam protocol for 2 minutes and 50 seconds, achieving work level of maximum METS 4.6. Resting heart rate of 70 bpm, roseanne to a maximum heart rate of 144 bpm. This value represents 100% of the maximal age-predicted heart rate. The resting blood pressure of 112/66 mmHg, roseanne to a maximum blood pressure of 170/58 mmHg Exercise test was terminated due to achieving target heart rate Stress EKG showed[, no significant change from the resting EKG, with maximum heart rate of 107bpm. Arrhythmia: No arrhythmia demonstrated Symptoms: Patient had no symptoms of chest pain Blood pressure at rest: 112/66 mmHg blood pressure at the end of stress: 170/58 mmHg Myocardial perfusion protocol. 10.7 mCi ]of Technetium 99m Sestamibi was injected at rest. [ 0.4 mg ]of Regadenoson was infused per usual protocol peak infusion 33.6 mCi ]of Technetium 99m sestamibi was injected. Stress images were obtained stress and rest images were reconstructed and compared in the short axis vertical and horizontal long a xis. Gated images were also obtained Perfusion SPECT analysis: Review of the images demonstrate normal uptake of sestamibi at rest, post stress images demonstrate similar uptake of sestamibi to the resting images, homogeneous tracer uptake With no evidence of reversible myocardial ischemia. Gated SPECT analysis: The gated ejection fraction is 89%. Wall motion showed hyperdynamic left ventricle. Conclusion: Negative Lexiscan sestamibi myocardial perfusion study for reversible myocardial ischemia Hyperdynamic left ventricle. Ida Washburn MD,FACC,[facility] t
== END | disposition home or self-care (01) ==
PROVIDERS: PCP Internal Medicine; Referring Provider Internal Medicine; Visit Provider Internal Medicine
DX: R06.02 Shortness of breath (principal)
CPT/HCPCS: 78452; 93017; A9500; A4216

== ENCOUNTER → 2023-01-19 | Outpatient (CLI) | payer MEDICARE, OTHER, SELFPAY ==
--- NOTE | 2023-01-19 07:20 | BI_ITS ---
MAMMOGRAPHY - BILATERAL SCREENING REASON FOR EXAM: Female, 82 years old. Routine annual screening examination. PERTINENT HISTORY: Sister with breast cancer. TECHNIQUE: Digital bilateral breast anjelica (3D mammographic acquisition) in the CC and MLO projections. 2-D mediolateral oblique (MLO) and craniocaudad (CC) views of both breasts were obtained. CAD: Full Field Digital Mammography with Computer Added Detection was performed. COMPARISON: Comparison is made with prior examination of January 18, 2022 and January 17, 2021. FINDINGS: Breast Composition: The breasts are heterogeneously dense, which may obscure small masses. There are no dominant masses or suspicious calcifications. No other significant abnormalities are identified. There has been no significant change since the prior study. BI/SCRN MAMM (CAD)W/ANJELICA BILAT IMPRESSION: Stable bilateral screening mammogram. Yearly follow-up mammogram recommended. (A) ASSESSMENT CATEGORY: BIRADS Category 1: Negative. A letter regarding these results will be sent to the patient by the facility within 30 days. Approximately 10% of breast cancers are not detected by mammography. A normal mammogram should not delay biopsy of a clinically suspicious abnormality. [id number] Electronically Signed: Samuel Rhodes MD at 8:52 EST ,
== END | disposition home or self-care (01) ==
PROVIDERS: PCP Internal Medicine; Referring Provider Internal Medicine; Visit Provider Internal Medicine
DX: Z12.31 Encounter for screening mammogram for malignant neoplasm of breast (principal); Z80.3 Family history of malignant neoplasm of breast
CPT/HCPCS: 77063; 77067

== ENCOUNTER → 2024-04-25 | Outpatient (CLI) | payer MEDICARE, OTHER, SELFPAY ==
--- NOTE | 2024-04-25 07:15 | BI_ITS ---
EXAM: SCRN MAMM (CAD)W/ANJELICA BILAT 04/25/2024 CLINICAL HISTORY: F, Age 84 y/o , SCREENING. Family history of breast cancer in her sister at 60 in 2 paternal cousins. TECHNIQUE: Bilateral screening digital breast tomosynthesis with 2D and 3D images. Computer aided detection. COMPARISON: Prior exam(s) dated 01/19/2023, 01/18/2022. FINDINGS: TISSUE DENSITY: The breast tissue is heterogenously dense, which may obscure small masses. The mammogram demonstrates that the patient has dense breasts. Supplemental screening with whole breast ultrasound or MRI may be considered for further evaluation. Bilateral Breast Mammographic Findings: No significant masses, calcifications or other abnormalities are identified. BI/SCRN MAMM (CAD)W/ANJELICA BILAT IMPRESSION: There is no mammographic evidence of malignancy. OVERALL FINAL ASSESSMENT: BIRADS 1 NEGATIVE. RECOMMENDATION: Routine annual follow-up in 1 Year A letter with findings and recommendations will be mailed to the patient. Reading Location: [id number]
== END | disposition home or self-care (01) ==
LOC: OPBI 07:08
PROVIDERS: PCP Internal Medicine; Referring Provider Internal Medicine; Visit Provider Internal Medicine
DX: Z12.31 Encounter for screening mammogram for malignant neoplasm of breast (principal); Z80.3 Family history of malignant neoplasm of breast
CPT/HCPCS: 77063; 77067

== ENCOUNTER → 2024-05-01 | Outpatient (CLI) | payer MEDICARE, OTHER, SELFPAY ==
--- NOTE | 2024-05-01 08:45 | BD_ITS ---
EXAM: CLINICAL INDICATION: Determine bone density. CLINICAL HISTORY: 84-year-old female who is postmenopausal COMPARISON: DEXA examination dated 01/18/2022 TECHNIQUE: Bone densitometry of the lumbar spine and hips was performed using the [employer] DEXA scanner. BD/Dexa Bone Density Study IMPRESSION: Bone Density Measurements: SPINE AP Spine (L1-L2): 0.981 g/cm2 T-Score: 0 Z-Score: 2.6 WHO Classification: Normal bone mineral density LEFT FEMUR Femoral TOTAL (LEFT): 0.737 g/cm2 T-Score: -1.7 Z-Score: 0.6 WHO Classification: OSTEOPENIA Femoral NECK (LEFT): 0.530 g/cm2 T-Score: -2.9 Z-Score: -0.4 WHO Classification: Osteoporosis There is -1.2 % change since the prior examination of 01/18/2022 RIGHT FEMUR Femoral TOTAL (RIGHT): 0.809 g/cm2 T-Score: -1.1 Z-Score: 1.1 WHO Classification: OSTEOPENIA Femoral NECK (RIGHT): 0.579 g/cm2 T-Score: -2.4 Z-Score: 0 WHO Classification: OSTEOPENIA There is 0.3 % change since the prior examination of 01/18/2022 World Health Organization criteria for BMD interpretation classify patients as: Normal (T-score at or above -1.0), Osteopenic (T-score between -1.0 and -2.5),or Osteoporotic (T-score at or below -2.5). The presence of vertebral abnormalities such as scoliosis or osteophytes, or ao rtic/ligamentous calcifications can alter readings of the lumbar spine. In such cases, readings of the hips are more reliable. Reading Location: [id number]
== END | disposition home or self-care (01) ==
LOC: OPBD 08:43
PROVIDERS: PCP Internal Medicine; Referring Provider Internal Medicine; Visit Provider Internal Medicine
DX: Z78.0 Asymptomatic menopausal state (principal)
CPT/HCPCS: 77080

== ENCOUNTER 2024-08-29 08:21 | Outpatient (CLI) | payer MEDICARE, OTHER, SELFPAY ==
[2024-08-29 09:15] VITALS: BP 145/79; PULSE 72; RESP 16; TEMP 35.8; O2SAT 98; BMI 23.6
[2024-08-29 10:46] LABS: CORTISOL AM 26.30 ug/dL (6.02-18.40)
[2024-08-29 10:49] LABS: CORTISOL AM 15.00 ug/dL (6.02-18.40)
[2024-08-29 11:11] LABS: CORTISOL AM 30.60 ug/dL (6.02-18.40)
== END 2024-08-29 23:59 | disposition home or self-care (01) ==
PROVIDERS: PCP Internal Medicine; Referring Provider Internal Medicine; Visit Provider Internal Medicine
DX: R41.89 Other symptoms and signs involving cognitive functions and awareness (principal)
CPT/HCPCS: 82533; 96372; J0834

== ENCOUNTER 2024-09-29 10:30 | Outpatient (RCR) | payer MEDICARE, OTHER, SELFPAY ==
--- NOTE | 2024-08-20 13:03 | HP.PTEVAL_ITS ---
Patient's Visit Information Visit Information Visit Information: ARIEL MATA is a 84 year old F referred to Physical Therapy by Dr. Raine Gomez MD with a diagnosis of L thigh weakness. 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 Pt reports she gets weakness occasionally in her L thigh which she believes may be due to her age. Pt notes she has had recent x-rays of her L knee which revealed everything is fine. Pt also notes she had been taking care of her ill daughter that recently on from cancer. Pt reports she lost a lot of strength at that time as well as she has lost a lot of weight. Pt notes she is still able to perform most IADL's, but just feels much weaker overall while attempting to perform them. Pt also notes she feels light headed on occasion, but is not sure why. Pt notes her doctor believes it may be due to her diet and water intake. Pt notes she has low tolerance to prolonged standing, as when she goes to her doctors and has to wait, she is instantly looking for a chair to sit down on. Pt denies any tingling or numbness in her feet. Pt denies being in any pain today. Pt lives in a one story house, with 3 step entry. No difficulty with stair negotiation. Pt denies Hx of falls. Objective Objective: Neuro: B LE sensation is WNL to light touch MMT: B hips are grossly 5/5 throughout. B knee flex and ext is rated at 4/5 throughout. ROM: WFL when compared bilaterally sit to stands: 17 sit to stands [id number] 6 min walk test: 1400 feet Balance/Special Test Scores Lower Extremity Functional Score: 60 Goals Goal 1:: Pt will be I with HEP Goal Time Frame: 2 Weeks Rehabilitation Potential Physical Therapy Diagnosis: Pt has B LE weakness secondary to debility from taking care of ailing daughter Rehabilitation Potential: Good Anticipated Interventions Patient/Client Instruction: Educate patient on: Condition and Plan of Care For the Purpose of:: To improve self management Therapeutic Exercise to Include: Strength training, Endurance training, Balance training and Dynamic Lumbar Stabilization For the Purpose of:: To improve muscle performance and motor function, To increase tolerance to activity/condition/position and To improve ability of physical actions for home/community/work/leisure Text: Thank you for the opportunity to evaluate your patient. For Medicare and Medicare HMO plans, please review the plan of care and approve it. It will need to be FAXED BACK to us at [phone] for Medicare purposes. For Medicare only, by signing this I certify the plan of care. Please let me know if there are questions or concerns regarding this plan of care. Physician Signature: Date:
--- NOTE | 2024-11-11 09:21 | HP.PTDCSUM ---
Discharge Summary D/C summary: It has been my pleasure to treat ARIEL MATA referred by Dr. Raine Gomez MD, with the diagnosis of L thigh weakness for a total of 4 visit(s). Discharge Date: Please see the following information for a summary of their discharge status. Subjective Subjective: Only minor pain today 02/14 Objective Objective/Function: Pt is now I with HEP and will continue I. Goals Goal 1:: Pt will be I with HEP Goal Progress: Goal Met Plan Plan: Discharge to HEP D/C Information d/c sentence: If there are questions or concerns regarding this patient's physical therapy, please feel free to call me at [phone]. Thank you for the referral of this patient. Sincerely, Ramesh Bennett, PT, ATC Balance/Gait/Functional tests Balance/Special Test Scores Lower Extremity Functional Score: 60
== END 2024-09-29 19:00 | disposition home or self-care (01) ==
LOC: PT 10:30
PROVIDERS: PCP Internal Medicine; Referring Provider Internal Medicine; Visit Provider Internal Medicine
DX: R26.89 Other abnormalities of gait and mobility (principal); R53.1 Weakness
CPT/HCPCS: 97110; 97161

== ENCOUNTER 2024-10-11 16:38 | Inpatient (IN) | payer MEDICARE, OTHER, SELFPAY ==
[2024-10-11 16:39] VITALS: BP 161/96; PULSE 85; RESP 16; TEMP 37; O2SAT 96
[2024-10-11 17:10] VITALS: BMI 24.7
--- NOTE | 2024-10-11 17:31 | EX.ED.GENINJ ---
HPI History of Present Illness Chief Complaint: Fall Detail of Chief Complaint: Fall with right hip injury Informant: patient and family Narrative Narrative: Patient presents to the emergency department after sustaining a fall at a restaurant about noon today. She fell directly onto her right hip. People able to help her up and sit and she stayed through the shower and was able to eat. Complaining of pain with bearing weight on the right hip. She was able to bear some weight. Deny striking her head. Denies neck pain. Denies any other injury otherwise. She has not anticoagulated [facility] Home Medications ?Medication ?Instructions ?Recorded ?Last Taken ?Type multivitamin with folic acid 400 1 tab PO DAILY 09/03/14 Unknown History mcg tablet (Thera) L.acidoph,paracasei,B.animalis 10 1 ea PO 09/04/14 Unknown History billion cell capsule Vitamin D3 1 tab PO DAILY 09/04/14 Unknown History Calcium 500-Vit D3 200 Tablet 1 tab PO DAILY 10/07/15 Unknown History Allergy/AdvReac Type Severity Reaction Status Date / Time hydrocodone Allergy hallucinati Verified 10/11/24 16:41 ons Social History Smoking Status: Never smoker ROS ROS ED Review of Systems ROS Unobtainable: other Constitutional Constitutional ED: Reports lethargy; Denies chills, fever(s), sweats or weight loss Eyes Eyes: Denies blurry vision, change in vision or diplopia ENT ENT ED: Denies rhinorrhea or sore throat Cardiovascular Cardiovascular: Denies chest pain, orthopnea or racing heartbeat Respiratory/Chest Respiratory/Chest: Denies cough, dyspnea, dyspnea on exertion, orthopnea or sputum Gastrointestinal Gastrointestinal: Denies abdominal pain, diarrhea, nausea or vomiting Genitourinary Genitourinary ED: Denies dysuria, hematuria or urinary frequency Musculoskeletal Musculoskeletal: Reports other Details: Right hip pain/injury ; Denies arthralgias, back pain, myalgias or neck pain Integumentary Denies abscess, Abrasions or rash Neurologic Neurologic: Denies headache(s) or weakness Psychiatric Psychiatric: Denies anxiety, depression or suicidal thoughts Endocrine Endocrinology: Denies polydipsia, polyphagia or polyuria Hematologic/Lymphatic Hematologic/Lymphatic: Denies easy bleeding, easy bruising or lymphadenopathy Allergic/Immunologic Allergic/Immunologic ED: Denies mouth swelling, tongue swelling or urticaria EXAM Physical Exam Const Vital Signs: 10/11/24 16:39 10/11/24 19:01 Temperature 98.6 F Temperature Source Oral Pulse Rate 85 77 Respiratory Rate 16 18 Blood Pressure 161/96 H 148/82 H Blood Pressure Mean 117 104 Pulse Ox 96 95 Oxygen Delivery Method Nasal Cannula Room Air Positive well nourished and well developed General Appearance ED: well developed and NAD HEENT Reports TM's clear and moist mucous membranes normocephalic and atraumatic; Negative for trauma or tenderness Tympanic Membrane ED: Yes TM's clear Eyes PERRL and EOMs intact bilaterally General Eye ED: Negative for pale conjunctiva or scleral icterus Neck no lymphadenopathy, supple and no JVD General: Negative for tenderness Chest Wall inspection of chest normal and palpation of chest normal Chest: Negative for tenderness Resp normal respiratory effort and clear to auscultation bilaterally Effort and Inspection: Negative for respiratory distress or pain with movement Auscultation: Negative for rhonchi, wheezes or diminished lung sounds Cardio regular rate, regular rhythm, S1 normal heart sound, S2 normal heart sound and no murmurs Peripheral Pulses: pulses 2+ throughout GI normal to inspection, nondistended, normoactive bowel sounds, soft to palpation, non-tender, non-distended and no masses Back/Spine no CVA tenderness and no thoracic nor lumbar tenderness Extremity Extremity Narrative: Right hip-patient has diffuse tenderness palpation over the right hip. There is no shortening and there is no external rotation. She does have some pain with logrolling and flexion at the hip. Neurovascular intact distally. I do not appreciate any significant ecchymosis or bruising General Extremety ED: Negative for edema General Extremity: Negative for edema Neuro oriented x3, CN's II-XII intact bilaterally, no sensory deficits noted and gait normal Sensorium / Orientation: awake, alert, oriented to person, oriented to place and oriented to time Motor Exam: strength 5/5 throughout and strength abnormal Psych mental status grossly normal Skin no rashes or lesions noted and no wounds MDM MDM MDM Narrative Medical decision making narrative: Patient presents after a fall with injury of the right hip. IV line established. X-rays of the hip obtained showed a right subcapital hip fracture. Patient was given morphine and Zofran for pain. CBC with differential count of 11.4 with hemoglobin 13.6 and platelet count of 190. Patient case will be discussed with hospitalist as well as with orthopedics. Patient asked that I contact her primary care physician as well. Lab Data Attestation: I reviewed the patient's lab results. Labs: Laboratory Results - last 24 hr 10/11/24 18:50 WBC 11.4 H RBC 4.49 Hgb 13.6 Hct 39.4 MCV 87.8 MCH 30.3 MCHC 34.5 RDW Std Deviation 45.3 H RDW Coeff of Fatoumata 14.1 Plt Count 190 MPV 10.1 Immature Gran % (Auto) 0.400 Neut % (Auto) 77.3 H Lymph % (Auto) 11.9 L [place] % (Auto) 9.6 Eos % (Auto) 0.5 Baso % (Auto) 0.3 Absolute Neuts (auto) 8.8 H Absolute Lymphs (auto) 1.36 Nucleated RBC % 0 Radiography Diagnostic Testing: Clinical Impression(s) from Imaging Studies Chest X-Ray 10/11/24 17:45 IMPRESSION: Worsening perihilar vascular and interstitial lung markings, differential as given above. - Other findings discussed above. Reading Location: [facility] Hip/Pelvis X-Ray 10/11/24 17:45 IMPRESSION: Acute right femoral neck fracture. - Findings discussed above. Reading Location: [facility] Three-view x-rays of the right hip obtained interpreted by myself is fracture of hip subcapital. Radiology in agreement. 1 view x-ray of the chest obtained showed increased markings with vascular congestion on my interpretation. Radiology in agreement. EKG Initial EKG: Attestation: I personally reviewed and interpreted this EKG as follows: Comments: Sinus rhythm with rate of 88 bpm with no acute ST segment changes Discharge Plan Triage Chief Complaint: Fall ED Provider: Tomy Ashton Dx/Rx/DC Orders Clinical Impression: Closed right hip fracture, Fall Prescriptions: No Action multivitamin with folic acid [Thera] 1 TABLET tablet 1 tab PO DAILY Patient Comments: supplement L.acidoph,paracasei,B.animalis 1 EACH capsule 1 ea PO Patient Comments: supplement Vitamin D3 1 tab PO DAILY Patient Comments: supplement Calcium 500-Vit D3 200 Tablet 1 tab PO DAILY Primary Care Provider: Raine Gomez Referrals: Raine Gomez MD [Primary Care Provider] - Print Language: Amharic Disposition Disposition: Acute Care Hospital [facility]
--- NOTE | 2024-10-11 17:45 | RAD_ITS ---
PROCEDURE: CHEST 1 VIEW (PORTABLE) 10/11/2024 REASON FOR EXAM: PRE OP TECHNIQUE: Frontal view of the chest. COMPARISON: Chest x-ray August 04, 2023. FINDINGS: Lungs: The lungs are symmetrically expanded. Lung volumes are slightly pronounced. There are diffusely elevated perihilar vascular and reticular lung markings slightly worse than on the prior study. Clinical correlation for pulmonary vascular congestion and interstitial edema versus interstitial pneumonitis or worsening interstitial lung disease. There is a 9.5 mm dense nodular opacity overlying the left perihilar mid lung field, unchanged from the prior study. Given its density greater than adjacent rib this may represent a calcified granuloma. There is no consolidation. Pleura: No significant pleural effusion seen. There is no evidence of pneumothorax. Mediastinum: There is no mediastinal widening or mediastinal shift. Heart: The cardiac silhouette is not enlarged. Vascular: Aortic vascular calcification. Shagufta: The pulmonary shagufta are not enlarged or retracted. Osseous: No acute fracture is seen. Degenerative changes of the spine. RAD/Chest 1 View (Portable) IMPRESSION: Worsening perihilar vascular and interstitial lung markings, differential as gi ranjit above. - Other findings discussed above. Reading Location: [id number]
--- NOTE | 2024-10-11 17:45 | RAD_ITS ---
PROCEDURE: HIP, UNI W/ PELVIS 2-3 VIEWS 10/11/2024 REASON FOR EXAM: FALL TECHNIQUE: Procedure Code: [facility] Modality: DX Procedure: HIP, UNI W/ PELVIS 2-3 VIEWS Laterality: Right COMPARISON: None FINDINGS: Osseous: There is an acute impacted overriding subcapital fracture through the right femoral neck with bony shortening. No other acute displaced fracture is seen. Pelvic congruency is maintained. The hips are not subluxed or dislocated. Hip joint space loss noted left worse than right with mild osteoarthritic change. Incompletely imaged severe degenerative change of the visualized lower lumbar spine. Soft tissues: A few calcifications are seen overlying the pelvis which may represent phleboliths. Soft tissue injury is not well assessed by this technique. RAD/HIP, UNI W/ Pelvis 2-3 Views IMPRESSION: Acute right femoral neck fracture. - Findings discussed above. Reading Location: [id number]
--- NOTE | 2024-10-11 18:34 | EKG12_ITS ---
Test Reason : DYSRHYTHMIA Blood Pressure : */* mmHG Vent. Rate : 88 BPM Atrial Rate : 88 BPM P-R Int : 172 ms QRS Dur : 72 ms QT Int : 344 ms P-R-T Axes : 62 -30 69 degrees QTcB Int : 416 ms Normal sinus rhythm Left axis deviation Septal infarct , age undetermined Abnormal ECG Confirmed by Mj Perez ([id number]), television news video editor SALEEM ARNOLD ([id number]) on 10/14/2024 5:50:52 AM Referred By: Confirmed By: Mj Perez
[2024-10-11 18:57] LABS: Hematocrit 39.4 % (37-47); Hemoglobin 13.6 g/dL (12.0-15.0); Immature Granulocytes Count 0.050 X10^3/uL (0.0-0.0); Mean Corp Hgb Conc 34.5 g/dL (32-36); Mean Corpuscular Volume 87.8 fL (81-99); Mean Platelet Vol. 10.1 fl (6.2-12.0); NRBC Flagged by Analyzer 0 % (0-5); Platelet Count 190 K/mm3 (150-450); RBC Distribution Width CV 14.1 % (11.6-14.6); RBC Distribution Width SD 45.3 fl (35.1-43.9); Red Blood Count 4.49 M/mm3 (4.2-5.4); White Blood Count 11.4 K/mm3 (4.4-11.0)
[2024-10-11 19:01] VITALS: BP 148/82; PULSE 77; RESP 18; O2SAT 95
[2024-10-11 19:18] LABS: Anion Gap 12 (5-15); BUN 17 mg/dL (4-19); BUN/Creat Ratio 18.7 RATIO (10-20); Calcium,Total 9.0 mg/dL (7.6-11.0); Carbon Dioxide 23.0 mmol/L (21.0-32.0); Chloride 103 mmol/L (98-108); Estimated Creatinine Clearance 36.82 ml/min (50-250); Glucose 122 mg/dL (70-99); Potassium 4.1 mmol/L (3.3-5.1)
[2024-10-11 19:40] VITALS: BP 142/89; PULSE 77; RESP 18; TEMP 37; O2SAT 95
--- NOTE | 2024-10-11 20:08 | PCM.HP.STD ---
HPI - General General Date of Admission: 10/11/24 Date of Service: 10/11/24 Chief Complaint: Right hip pain HPI Narrative ARIEL MATA, is a 84-year-old female presented to [facility] ED 10/11/2024 after a fall on her right hip. She was at a restaurant fell about noon today directly onto her right hip. She is able to bear some weight but has pain when bearing weight ultimately prompting her to come to the ED. In the ED temp 98.6, heart rate 85, blood pressure 161/96, pulse ox 96% on nasal cannula. Chest x-ray with some reticular lung markings slightly worse than prior study and hip x-ray demonstrated acute right femoral neck fracture. CBC with white count 11.4, hemoglobin 13.6, BMP with a BUN of 17 and a creatinine 0.92. Ortho on-call was contacted and recommended medical admission with Ortho consult. Hospitalist contacted for admission. Patient evaluated at bedside. She reports the fall going into her granddaughters wedding shower and that she was in significant pain but did not want to miss it, afterwards a family member asked her if she needed to go to the hospital and she said yes, was able to get herself in to a jeep and ambulate with significant pain but did bear weight. Denies any focal weakness, numbness, tingling. Denies any bowel or bladder changes, has some chronic arthritis pain mostly in the left lower extremity, no other new or acute complaints PFSH Home Medications ?Medication ?Instructions ?Recorded ?Last Taken ?Type multivitamin with folic acid 400 1 tab PO DAILY 09/03/14 10/11/24 History mcg tablet (Thera) Vitamin D3 1 tab PO DAILY 09/04/14 10/11/24 History ascorbic acid (vitamin C) 500 mg 1 g PO DAILY 10/11/24 10/11/24 History chewable tablet (C-500) folic acid 1 mg tablet 2 mg PO DAILY 10/11/24 10/11/24 History Allergy/AdvReac Type Severity Reaction Status Date / Time hydrocodone Allergy hallucinati Verified 10/11/24 16:41 ons Social History Smoking Status: Never smoker ROS ROS Narrative General: Denies fever/chills HENT: Denies headache, denies stuffy nose, denies sore throat EYES: Denies changes in vision Resp: Denies cough, denies shortness of breath Cardiac: Denies chest pain GI: Denies abdominal pain, denies changes in bowel, denies nausea/vomiting : Denies changes in urination Extremity: Denies swelling MSK: Denies focal weakness, does have right hip pain Neuro: Denies any numbness/tingling Heme: Denies any bleeding or bruising Skin: Denies rashes Psychiatric: No complaints voiced Vital Signs Vital Signs Vital Signs: 10/11/24 16:39 10/11/24 19:01 10/11/24 19:40 Temperature 98.6 F 98.6 F Temperature Source Oral Pulse Rate 85 77 77 Respiratory Rate 16 18 18 Blood Pressure 161/96 H 148/82 H 142/89 H Blood Pressure Mean 117 104 106 Pulse Ox 96 95 95 Oxygen Delivery Method Nasal Cannula Room Air Weight Weight: 57.606 kg Body Mass Index (BMI) 24.7 Physical Exam Narrative General: Alert, oriented, no apparent distress HEENT: Atraumatic, normocephalic Eyes: Anicteric, normal conjunctiva, extraocular movements grossly intact Neck: Supple Respiratory: Clear to auscultation bilaterally, normal respiratory effort Cardiovascular: Regular rate and rhythm GI: Soft, nontender, nondistended Extremities: No edema Musculoskeletal: Moving all extremities in bed though does have pain with moving right lower extremity Neuro: No overt focal neurological deficits Skin: No rashes appreciated Psych: Cooperative Results Lab / Micro Data 10/11/24 18:50 10/11/24 18:50 Labs: Laboratory Results - last 24 hr 10/11/24 18:50: WBC 11.4 H, RBC 4.49, Hgb 13.6, Hct 39.4, MCV 87.8, MCH 30.3, MCHC 34.5, RDW Std Deviation 45.3 H, RDW Coeff of Fatoumata 14.1, Plt Count 190, MPV 10.1, Immature Gran % (Auto) 0.400, Neut % (Auto) 77.3 H, Lymph % (Auto) 11.9 L, [place] % (Auto) 9.6, Eos % (Auto) 0.5, Baso % (Auto) 0.3, Absolute Neuts (auto) 8.8 H, Absolute Lymphs (auto) 1.36, Nucleated RBC % 0, Sodium 138, Potassium 4.1, Chloride 103, Carbon Dioxide 23.0, Anion Gap 12, BUN 17, Creatinine 0.92, Estim Creat Clear Calc 36.82 L, Est GFR (MDRD) Non-Af 62, BUN/Creatinine Ratio 18.7, Glucose 122 H, Calcium 9.0 Imaging Radiology Impression Chest X-Ray 10/11/24 17:45 IMPRESSION: Worsening perihilar vascular and interstitial lung markings, differential as given above. - Other findings discussed above. Reading Location: [facility] Hip/Pelvis X-Ray 10/11/24 17:45 IMPRESSION: Acute right femoral neck fracture. - Findings discussed above. Reading Location: [facility] Assessment & Plan Assessment/Plan (1) Closed right hip fracture: PLAN: Plan # Acute right femoral neck fracture -Imaging: X-ray demonstrated right femoral neck fracture -Ortho consult -Pain control and scheduled bowel regimen -NPO at midnight -PT/OT -Case management and social work consults for DC planning #DVT ppx: SCDs Becky Arias MD Charges/Coding Visit Charges Inpatient E&M: 23429 Init Hosp L1
--- NOTE | 2024-10-11 20:36 | CONS.ORTHO ---
HPI Consult Data Date of Consult: 10/11/24 HPI Narrative HPI Narrative: ARIEL MATA, is a 84 F who presents with a right femoral neck fracture. The patient fell at dinner. Made it through the rest of dinner but then was having pain and difficulty ambulating. Patient normally ambulates without any ambulatory aids. Has started physical therapy recently for weakness. Lives independently alone. Is able to drive and make meals. PFSH Home Medications ?Medication ?Instructions ?Recorded ?Last Taken ?Type multivitamin with folic acid 400 1 tab PO DAILY 09/03/14 10/11/24 History mcg tablet (Thera) Vitamin D3 1 tab PO DAILY 09/04/14 10/11/24 History ascorbic acid (vitamin C) 500 mg 1 g PO DAILY 10/11/24 10/11/24 History chewable tablet (C-500) folic acid 1 mg tablet 2 mg PO DAILY 10/11/24 10/11/24 History Allergy/AdvReac Type Severity Reaction Status Date / Time hydrocodone Allergy hallucinati Verified 10/11/24 16:41 ons Social History Smoking Status: Never smoker Vital Signs Vital Signs Vital Signs: 10/11/24 16:39 10/11/24 19:01 10/11/24 19:40 Temperature 98.6 F 98.6 F Temperature Source Oral Pulse Rate 85 77 77 Respiratory Rate 16 18 18 Blood Pressure 161/96 H 148/82 H 142/89 H Blood Pressure Mean 117 104 106 Pulse Ox 96 95 95 Oxygen Delivery Method Nasal Cannula Room Air Weight Weight: 127 lb Body Mass Index (BMI) 24.7 Physical Exam Const alert, oriented x3 and well nourished General Appearance: cooperative Extremity normal capillary refill Extremity Narrative: Right hip held in external rotation closed injury. No pain at the knee foot or ankle. Able to wiggle the toes dorsiflex and plantarflex the foot the foot is warm and well-perfused strong dorsalis pedis pulse. Lab / Micro Data 10/11/24 18:50 10/11/24 18:50 Labs: Laboratory Results - last 24 hr 10/11/24 18:50: WBC 11.4 H, RBC 4.49, Hgb 13.6, Hct 39.4, MCV 87.8, MCH 30.3, MCHC 34.5, RDW Std Deviation 45.3 H, RDW Coeff of Fatoumata 14.1, Plt Count 190, MPV 10.1, Immature Gran % (Auto) 0.400, Neut % (Auto) 77.3 H, Lymph % (Auto) 11.9 L, [place] % (Auto) 9.6, Eos % (Auto) 0.5, Baso % (Auto) 0.3, Absolute Neuts (auto) 8.8 H, Absolute Lymphs (auto) 1.36, Nucleated RBC % 0, Sodium 138, Potassium 4.1, Chloride 103, Carbon Dioxide 23.0, Anion Gap 12, BUN 17, Creatinine 0.92, Estim Creat Clear Calc 36.82 L, Est GFR (MDRD) Non-Af 62, BUN/Creatinine Ratio 18.7, Glucose 122 H, Calcium 9.0 Imaging Radiology Impression Chest X-Ray 10/11/24 17:45 IMPRESSION: Worsening perihilar vascular and interstitial lung markings, differential as given above. - Other findings discussed above. Reading Location: [facility] Hip/Pelvis X-Ray 10/11/24 17:45 IMPRESSION: Acute right femoral neck fracture. - Findings discussed above. Reading Location: [facility] Displaced subcapital femoral neck fracture on the right side. Assessment & Plan Assessment/Plan (1) Closed right hip fracture: PLAN: 84-year-old female with a right displaced femoral neck fracture. Discussed the diagnosis prognosis different treatment options. Patient had a prior left total hip arthroplasty this is not the same recovery and typically is more difficult and painful, and higher risk surgery given the emergent nature. Overall the recommendation is for surgery although nonsurgical option discussed this has a higher risk of blood clots pneumonia avascular necrosis of the femoral head and other problems. That being said surgery has its own set of risks. There are different ways to treat this including ORIF (higher risk of secondary interventions) hemiarthroplasty or total hip arthroplasty (possibly higher outcomes but also higher complications and technically more demanding). My preferred treatment here is cemented hemiarthroplasty given the low risk of dislocation and good immediate fixation strength. I do this typically through a lateral approach. Specific surgical risks include but are not limited to infection pain stiffness bleeding instability fracture cement complications VTE implant failure loosening or other problems like leg length discrepancies limp or other issues. The patient understands wishes to proceed signed the consent form for right hip hemiarthroplasty as well as possible need for blood products. I marked the right hip. The patient is being admitted under the hospitalist service with plan to do the case tomorrow at 9 AM diet as tolerated for now and n.p.o. at midnight. Dr. Faustin, greenhouse assistant and rep made aware. The patient understands no further questions or concerns. Pros and cons risks and benefits were discussed with the patient including but not limited to infection, pain, stiffness, bleeding, damage to surrounding structures, neurovascular injury, recurrence or retear, failure or wear of hardware or fixation, instability, fracture, deep vein thrombosis and pulmonary embolism, anesthetic risks, , patient dissatisfaction, need for further surgery and other risks. Patient understood and wished to proceed with surgery, and signed the informed consent documentation.
[2024-10-11 20:46] VITALS: RESP 16; BMI 23.6
[2024-10-11 21:08] VITALS: O2SAT 88
[2024-10-11 21:11] VITALS: BP 135/77; PULSE 88; RESP 20; TEMP 37.5; O2SAT 95
[2024-10-11] MEDS: 0.9% Saline Lock 10 ML Syringe IV (21:40)
[2024-10-11] MEDS: MELATONIN 10 MG TABLET PO (21:40)
[2024-10-11] MEDS: 0.9% Normal Saline (1000mL) 1,000 ML 50 ML IV (21:41)
[2024-10-11] MEDS: Senna/Docusate Sodium 1 Tablet 2 TABLET PO (22:19)
[2024-10-12] VITALS (17 sets, daily range): BP systolic 106–164; BP diastolic 67–85; PULSE 62–89; RESP 14–18; TEMP 36.5–37.5; O2SAT 92–99; BMI 23.6
[2024-10-12 04:56] LABS: Hematocrit 33.7 % (37-47); Hemoglobin 11.7 g/dL (12.0-15.0); Immature Granulocytes Count 0.020 X10^3/uL (0.0-0.0); Mean Corp Hgb Conc 34.7 g/dL (32-36); Mean Corpuscular Volume 87.3 fL (81-99); Mean Platelet Vol. 10.2 fl (6.2-12.0); NRBC Flagged by Analyzer 0 % (0-5); Platelet Count 168 K/mm3 (150-450); RBC Distribution Width CV 14.0 % (11.6-14.6); RBC Distribution Width SD 44.9 fl (35.1-43.9); Red Blood Count 3.86 M/mm3 (4.2-5.4); White Blood Count 7.8 K/mm3 (4.4-11.0)
[2024-10-12 05:28] LABS: Anion Gap 10 (5-15); BUN 16 mg/dL (4-19); BUN/Creat Ratio 16.8 RATIO (10-20); Calcium,Total 8.8 mg/dL (7.6-11.0); Carbon Dioxide 23.7 mmol/L (21.0-32.0); Chloride 103 mmol/L (98-108); Estimated Creatinine Clearance 33.85 ml/min (50-250); Glucose 105 mg/dL (70-99); Potassium 3.8 mmol/L (3.3-5.1)
--- NOTE | 2024-10-12 08:38 | PCM.PRE.AN2 ---
ASA Classification* ASA Classification ASA Classification: 2 and E Assessment & Plan Anesthesia* Anesthesia Assessment Anesthesia Assessment: Discussed sedation and/or anesthesia options, risks, benefits, and alternatives with patient/parents/legal guardian/POA. Questions invited. The patient/parents/legal guardian/POA seems to understand and agrees to proceed with anesthesia plan. Reviewed the physical assessment, medical history, allergy history and patient home medications list prior to surgery/procedure/anesthetic and documented any changes. Performed airway and anesthesia risk assessments. Anesthesia Type Anesthesia Type: Spinal (GA bkup) Anesthesia Focused Assessment* Temperature: 98.2 F Pulse Rate: 66 Blood Pressure: 116/67 Respiratory Rate: 16 Pulse Ox: 99 Oxygen Flow Rate (L/min): 2 Airway Assessment Mouth opens: >3 cm Mallampati Score: II Labs Anesthesia Preop lab: CBC WBC 7.8 K/mm3 (4.4-11.0) 10/12/24 04:10/12/24 RBC 3.86 M/mm3 (4.2-5.4) L 10/12/24 04:10/12/24 Hgb 11.7 g/dL (12.0-15.0) L 10/12/24 04:10/12/24 Hct 33.7 % (37-47) L 10/12/24 04:10/12/24 Plt Count 168 K/mm3 (150-450) 10/12/24 04:10/12/24 CHEMISTRY Potassium 3.8 mmol/L (3.3-5.1) 10/12/24 04:10/12/24 Sodium 136 mmol/L (133-145) 10/12/24 04:10/12/24 Magnesium 1.9 mg/dL (1.8-2.4) 09/05/14 06:09/05/14 Phosphorus 1.8 mg/dL (2.5-4.9) L 09/05/14 06:09/05/14 BUN 16 mg/dL (4-19) 10/12/24 04:10/12/24 Creatinine 0.98 mg/dL (0.70-1.20) 10/12/24 04:10/12/24 Glucose 105 mg/dL (70-99) H 10/12/24 04:33 10/12/24 COAG Pre-Assessment Diagnosis/Proposed Procedure Planned Operative Procedure(s): Hemiarthroplasty rt hip Anesthesia History 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 When Was Last Pacemaker Check QUESTION #4 FULL TEXT: You/Your Family Experience fever (hyperthermia) with Anesthesia Last Oral Intake Last Oral intake: Last Oral Intake NPO since Meds taken in AM with sips of water? Meds patient instructed to take am of surgery PONV PONV - agent producer: PONV - agent producer Female HX of Motion Sickness HX of N/V After Surgery Non-Smoker Duration of Surgery greater than 60 minutes Number of Risk Factors PONV Score Height & Weight Height & Weight: Anesthesia: Height & Weight Height 5 ft 10/11/24 20:46 Weight: 55 kg 10/11/24 20:46 Body Mass Index (BMI) 23.6 10/11/24 20:46 Respiratory Assessment Respiratory Assessment - agent producer: Respiratory Tract Infection Hx - agent producer Hx Respiratory Tract Infection No 10/12/24 05:48 STOP Sleep Apnea STOP Sleep Apnea - agent producer: STOP Sleep Apnea - agent producer Hx Hypertension No 10/11/24 20:46 Hx Sleep Apnea No 10/11/24 20:46 CPAP No 10/11/24 20:46 BIPAP No 10/11/24 20:46 Do you snore loudly (louder No 10/11/24 20:46 than talking or can be heard Do you often feel tired/ No 10/11/24 20:46 fatigued/ sleepy during daytime? Has anyone observed you stop No 10/11/24 20:46 breathing during sleep? STOP Results Negative 10/11/24 20:46 QUESTION #5 FULL TEXT : Do you snore loudly (louder than talking or can be heard through closed doors)? 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 Specify any problems Hx of Preganancy in last 3 No 10/11/24 20:46 Months Nurse Filling Out Transfusion EVIZZO 10/11/24 20:46 & Questions: Date: 10/11/24 10/11/24 20:46 Time: 20:57 10/11/24 20:46 Patient unable to answer at this time (ie. confused, unrespo /Reproduction History /Reproductive History - agent producer: /Reproductive Hx- agent producer Hx Now No 10/12/24 05:48 Gestational Age (in weeks): EDC: Hx Hx Para Hx Section SAB No 10/12/24 05:48 Active Medications Active Medications: Current Medications Generic Name Dose Route Start Last Admin Trade Name Freq PRN Reason Stop Dose Admin Acetaminophen 1,000 mg 10/11/24 22:00 10/12/24 06:07 Acetaminophen 500 Mg Tablet PO Not Given Q8 KELLY Albuterol Sulfate 2.5 mg 10/11/24 20:48 Albuterol 2.5 Mg/3 Ml Vial.Neb. INHALATION Q2H PRN PRN SOB &/OR WHEEZING Sodium Chloride 250 mls @ 15 mls/hr 10/11/24 20:47 IV .[id number] PRN Saline Flush Sodium Chloride 250 mls @ 15 mls/hr 10/11/24 20:47 IV .[id number] PRN Additional IVPB Infusion Sodium Chloride 1,000 mls @ 50 mls/hr 10/11/24 20:48 10/11/24 21:41 IV 10/12/24 16:47 50 mls/hr .Q20H KELLY Administration Ketorolac Tromethamine 15 mg 10/11/24 20:48 10/11/24 21:37 Ketorolac 15 Mg/Ml Vial IV 10/16/24 20:48 15 mg Q6H PRN PRN Administration Pain Score 1-10 Melatonin 10 mg 10/11/24 20:48 10/11/24 21:40 Melatonin 10 Mg Tablet PO 10 mg QHS PRN PRN Administration INSOMNIA Morphine Sulfate 2 - 4 mg 10/11/24 20:48 Morphine 2 Mg/Ml Syringe IV Q3H PRN PRN Pain Score 6-10 Ondansetron HCl 4 mg 10/11/24 20:48 Ondansetron 4 Mg/2 Ml Vial IV Q8H PRN PRN NAUSEA/VOMITING Oxycodone HCl 5 mg 10/11/24 20:48 10/11/24 21:42 Oxycodone 5 Mg Tablet PO 5 mg Q4H PRN PRN Administration Pain Score 4-10 Senna/Docusate Sodium 2 tablet 10/11/24 22:00 10/11/24 22:19 Senna/Docusate Sodium 1 Tablet PO 2 tablet BID KELLY Administration Sodium Chloride 10 - 40 ml 10/11/24 20:47 10/11/24 21:40 0.9% Saline Lock 10 Ml Syringe IV 10 ml UD PRN Administration SALINE FLUSH PFSH Medical History Osteoporosis Home Medications ?Medication ?Instructions ?Recorded ?Last Taken ?Type multivitamin with folic acid 400 1 tab PO DAILY 09/03/14 10/11/24 History mcg tablet (Thera) Vitamin D3 1 tab PO DAILY 09/04/14 10/11/24 History ascorbic acid (vitamin C) 500 mg 1 g PO DAILY 10/11/24 10/11/24 History chewable tablet (C-500) cyanocobalamin (vitamin B-12) 1,000 mcg IM QMONTH supplement 10/11/24 10/03/24 History 1,000 mcg/mL injection solution folic acid 1 mg tablet 2 mg PO DAILY 10/11/24 10/11/24 History meloxicam 15 mg tablet 15 mg PO QHS pain 10/11/24 Unknown History Allergy/AdvReac Type Severity Reaction Status Date / Time hydrocodone Allergy hallucinati Verified 10/11/24 16:41 ons Surgical History History of left knee replacement Social History Smoking Status: Never smoker Review of Systems (Anesthesia) ROS Narrative System reviewed and no additional complaints, except as documented.
--- NOTE | 2024-10-12 09:10 | PN.ORTHO_ITS ---
Subjective Subjective Did fine overnight. no concerns. Objective Data Objective Data Vital Signs: Vital Signs Temp Pulse Resp BP Pulse Ox O2 Del Method O2 Flow Rate 99.2 F H 79 14 136/79 H 96 Room Air 2 10/12/24 08:50 10/12/24 08:50 10/12/24 08:57 10/12/24 08:50 10/12/24 08:50 10/12/24 08:57 10/12/24 08:39 Oxygen Flow Rate (L/min) 2 Oxygen Delivery Method Room Air Weight: 121 lb 4.068 oz Body Mass Index (BMI) 23.6 Intake & Output: Intake and Output for Last 24 Hours 10/10/24 10/11/24 10/12/24 23:59 23:59 23:59 Intake Total 100 / 100 Output Total 250 / 250 Balance -150 / -150 Lab / Micro Data 10/12/24 04:33 10/12/24 04:33 Labs: Laboratory Results - last 24 hr 10/11/24 18:50: WBC 11.4 H, RBC 4.49, Hgb 13.6, Hct 39.4, MCV 87.8, MCH 30.3, MCHC 34.5, RDW Std Deviation 45.3 H, RDW Coeff of Fatoumata 14.1, Plt Count 190, MPV 10.1, Immature Gran % (Auto) 0.400, Neut % (Auto) 77.3 H, Lymph % (Auto) 11.9 L, [place] % (Auto) 9.6, Eos % (Auto) 0.5, Baso % (Auto) 0.3, Absolute Neuts (auto) 8.8 H, Absolute Lymphs (auto) 1.36, Nucleated RBC % 0, Sodium 138, Potassium 4.1, Chloride 103, Carbon Dioxide 23.0, Anion Gap 12, BUN 17, Creatinine 0.92, E stim Creat Clear Calc 36.82 L, Est GFR (MDRD) Non-Af 62, BUN/Creatinine Ratio 18.7, Glucose 122 H, Calcium 9.0 10/12/24 04:33: WBC 7.8, RBC 3.86 L, Hgb 11.7 L, Hct 33.7 L, MCV 87.3, MCH 30.3, MCHC 34.7, RDW Std Deviation 44.9 H, RDW Coeff of Fatoumata 14.0, Plt Count 168, MPV 10.2, Immature Gran % (Auto) 0.300, Neut % (Auto) 62.4, Lymph % (Auto) 22.8, M zahida % (Auto) 11.0 H, Eos % (Auto) 3.1, Baso % (Auto) 0.4, Absolute Neuts (auto) 4.8, Absolute Lymphs (auto) 1.77, Nucleated RBC % 0, Sodium 136, Potassium 3.8, Chloride 103, Carbon Dioxide 23.7, Anion Gap 10, BUN 16, Creatinine 0.98, Estim Creat Clear Calc 33.85 L, Est GFR (MDRD) Non-Af 57 L, BUN/Creatinine Ratio 16.8, Glucose 105 H, Calcium 8.8, Blood Type A POSITIVE, Antibody Screen NEGATIVE Radiography Diagnostic Testing: Radiology Impression Chest X-Ray 10/11/24 17:45 IMPRESSION: Worsening perihilar vascular and interstitial lung markings, differential as given above. - Other findings discussed above. Reading Location: [facility] Hip/Pelvis X-Ray 10/11/24 17:45 IMPRESSION: Acute right femoral neck fracture. - Findings discussed above. Reading Location: [facility] Assessment & Plan Assessment/Plan (1) Closed right hip fracture: PLAN: 84 F with right NOF fracture. will proceed. plan for spinal.
[2024-10-12] MEDS: fentaNYL 100 MCG/2 ML Ampul IV (09:18)
[2024-10-12] MEDS: Midazolam 2 MG/2 ML Syringe IV (09:18)
[2024-10-12] MEDS: Cefazolin 1 GM/5 ML Vial 2 GM IV (09:32)
[2024-10-12] MEDS: TRANEXAMIC ACID 1,000 MG/10 ML ML 2000 MG IV (10:55)
--- NOTE | 2024-10-12 11:02 | PCM.OPRPT ---
Problems Associated Problem List Diagnoses (1) Closed right hip fracture: Procedures Musculoskeletal [id number]: Other Procedure See Report Operative Report (Standard) Operative Information Date of Procedure: 10/12/24 Pre-Operative Diagnosis: Right femoral neck fracture Post-Operative Diagnosis: same Surgery/Procedure Performed: Right hip cemented hemiarthroplasty medical scheduler: Yes Director Of Diagnostic Imaging: saray Tasks completed by engineer first assistant: Retracting Additional research program assistant?: No Type of Anesthesia: Spinal RN Documented Start/Stop Times: Operation Date: 10/12/24 09:20 Case Time Anesthesia Start 10/12/24 09:07 Into Room 10/12/24 09:07 Procedure Start 10/12/24 09:36 Procedure End 10/12/24 10:59 Procedure Start Time: 09:36 Procedure Stop Time: 10:59 Select all DRAINS/GRAFTS/IMPLANTS that apply: Implanted device Implanted device details: lachelle accolade C alonzo arthroplasty hip Estimated Blood Loss: 50 Specimen collected: No Description of surgery: Patient brought to the operating room theater. Administered a spinal anesthetic. Transferred to the operating room table. Used the [place] hip positioner. Patient transferred right side up lateral decubitus. Axillary roll placed all bony prominences padded. SCD on the nonoperative leg. 2 g IV Ancef administered prior to the start of the case. Lower extremity prepped and draped in the usual sterile fashion with chlorhexidine-based prep solution allowing over 3 minutes drying time prior to draping. Blankets between the legs with padding. Preoperative timeout performed to confirm the site patient and the surgery. Began by making a lateral incision centered over the proximal femur carried the dissection down through skin and subcutaneous tissue achieving meticulous hemostasis. Incised the tensor fascia laterally in line with the skin incision. Sharply excised release the one third anterior abductors off the greater trochanter. Made a T-shaped capsulotomy. Tagged each limb with #1 Vicryl suture. Remove the head. Made the neck cut approximately a fingerbreadth above the level lesser trochanter. Cleaned this. Size the head for approximately a size 46 mm. This achieved good suction fit. I then started using the box osteotome and lateralizing reamers and canal finder to prepare the femoral canal. Used sequential rasp and broaching up to a size 4 mm with good fit there. I trialed with this using a -3 mm offset and 46 mm head which was a good stable and solid in external rotation and extension as well as flexion and internal rotation no impingement normal shuck test normal leg lengths. Trials removed femoral canal prepared cement mixed using third-generation cement mixing techniques. Used the 12 mm distal centralizer as well as a cement restrictor (smaller one) in appropriate level. I used the brush as well as the chlorhexidine dilute wash placed the distal cement restrictor, then padded suction device. Began by cementing once the cement was a bit doughy but the cement was starting to set up a little bit too quickly. Stopped removed a very small amout of cement before hardened, and then remixed a new batch. We cemented the canal using pressurizing techniques patient stable throughout. #4 size lachelle accolade stem placed, with distal centralizer. Component inserted using the technical producer, appropriate version. This was sitting off the calcar with the collar about 5 mm unfortunately despite impacting this did not sit down all the way but was off by about 5 mm. Cement allowed to fully cure trunion cleaned trialing performed again and then decided to go with these for the final components with a 46 mm bipolar head and -3 mm length. Impacted on the Tovar taper and then reduced the hip again trialing was felt to be stable with normal leg lengths. I closed the capsule using #1 Vicryl suture again and then repair of the abductors using #2 FiberWire through drill holes of the greater trochanter. I then closed the tensor fascia cedric with running STRATAFIX suture the subcutaneous tissue with 2-0 Vicryl suture wounds thoroughly irrigated and skin with 3-0 Monocryl. Skin cleaned with wet dry dressing followed application of half-inch Steris cut in half and silver Mepilex dressing. Patient taken out of the hip positioner transferred off the operating table taken to postanesthetic care unit in stable condition. All sponge needle instrument counts were correct no complications plan to the patient weightbearing as tolerated x-ray in postanesthetic care unit. Xarelto 30 days pod 1 10mg od for VTE prophylaxis. WBAT, PT/OT. FU 2 [address]. cpt 64655 Surgical Findings: as above Complications Complications: No Admit VTE Documentation VTE Present on Admission: No VTE Mechan Device Prophylaxis: SCD's VTE Pharm Prophylaxis ordered?: No Reason prophylaxis not ordered: Treatment Not Indicated
--- NOTE | 2024-10-12 11:11 | RAD_ITS ---
PROCEDURE: HIP MIN 2 VIEWS (PORTABLE) 10/12/2024 REASON FOR EXAM: POST OP CHECK, AP ONLY, IN PACU Right TECHNIQUE: Procedure Code: RADH_P Modality: DX Procedure: HIP MIN 2 VIEWS (PORTABLE) Laterality: Right COMPARISON: Preoperative images. FINDINGS: Right hip cement less hemiarthroplasty. Adjacent surgical changes. Remainder of the right hip and proximal femur negative. RAD/Hip Min 2 Views (Portable) IMPRESSION: Right hip hemiarthroplasty for right femoral neck fracture. Reading Location: [id number]
--- NOTE | 2024-10-12 11:29 | PCM.POST.ANE ---
Anesthesia: Postop Eval I Current Vital Signs Temperature: 99.5 F Pulse Rate: 68 Blood Pressure: 135/75 Respiratory Rate: 18 Pulse Ox: 95 Assessment Airway patent: Yes Spontaneous unlabored respirations: Yes Mental status: Awake nausea: No Vomiting: No Anesthesia Complication: No Fluid Hydration Crystalloid volume administer (ml): 600 Total IV fluid infused: 600 Progress Note Anesthesia document: Postop Eval 1 completed: Yes
--- NOTE | 2024-10-12 11:30 | PCM.POSTANE2 ---
Anesthesia Postop Eval I Sum Postop Eval Completion status Anesthesia document: Postop Eval 1 completed: Yes Anesthesia Postop Eval I Summary Anesthesia Postop Eval I Summary: Anesthesia Postop Eval I: Assessment Summary Airway patent Yes 10/12/24 11:30 Spontaneous unlabored Yes 10/12/24 11:30 respirations Mental status Awake 10/12/24 11:30 nausea No 10/12/24 11:30 Vomiting No 10/12/24 11:30 Anesthesia Postop Eval I: Fluid Summary Crystalloid volume administer 600 10/12/24 11:30 (ml) Colloids volume administered ( ml) Blood Product volume administered (ml) Total IV fluid infused 600 10/12/24 11:30 Anesthesia Postop Eval I: Summary Notes Anesthesia Complication No 10/12/24 11:30 Anesthesia Complication Comment: Post-operative progress note Anesthesia: Postop Eval II Evaluation Mental status: Awake and Calm Pain Level: 1 nausea: No Vomiting: No
--- NOTE | 2024-10-12 14:33 | PN_ITS ---
Subjective Subjective Patient seen and examined with her nurse by bedside. She was admitted with complaint of mechanical fall and resultant right hip fracture. She had no acute complaints today. Pain was fairly well-controlled and that she moved in bed. Review of systems otherwise negative. She is on 2 L of oxygen and is due for surgery by orthopedics today. Objective Data Objective Data Vital Signs: Vital Signs Temp Pulse Resp BP Pulse Ox O2 Del Method O2 Flow Rate 97.7 F L 85 16 131/73 H 95 Nasal Cannula 2 10/12/24 12:39 10/12/24 12:39 10/12/24 12:39 10/12/24 12:39 10/12/24 12:39 10/12/24 12:39 10/12/24 12:39 Oxygen Flow Rate (L/min) 2 Oxygen Delivery Method Nasal Cannula Weight: 121 lb 4.068 oz Body Mass Index (BMI) 23.6 Intake & Output: Intake and Output for Last 24 Hours 10/10/24 10/11/24 10/12/24 23:59 23:59 23:59 Intake Total 100 / 100 Output Total 475 / 475 Balance -375 / -375 Lab / Micro Data 10/12/24 04:33 10/12/24 04:33 Labs: Laboratory Results - last 24 hr 10/11/24 18:50: WBC 11.4 H, RBC 4.49, Hgb 13.6, Hct 39.4, MCV 87.8, MCH 30.3, MCHC 34.5, RDW Std Deviation 45.3 H, RDW Coeff of Fatoumata 14.1, Plt Count 190, MPV 10.1, Immature Gran % (Auto) 0.400, Neut % (Auto) 77.3 H, Lymph % (Auto) 11.9 L, [place] % (Auto) 9.6, Eos % (Auto) 0.5, Baso % (Auto) 0.3, Absolute Neuts (auto) 8.8 H, Absolute Lymphs (auto) 1.36, Nucleated RBC % 0, Sodium 138, Potassium 4.1, Chloride 103, Carbon Dioxide 23.0, Anion Gap 12, BUN 17, Creatinine 0.92, E stim Creat Clear Calc 36.82 L, Est GFR (MDRD) Non-Af 62, BUN/Creatinine Ratio 18.7, Glucose 122 H, Calcium 9.0 10/12/24 04:33: WBC 7.8, RBC 3.86 L, Hgb 11.7 L, Hct 33.7 L, MCV 87.3, MCH 30.3, MCHC 34.7, RDW Std Deviation 44.9 H, RDW Coeff of Fatoumata 14.0, Plt Count 168, MPV 10.2, Immature Gran % (Auto) 0.300, Neut % (Auto) 62.4, Lymph % (Auto) 22.8, M zahida % (Auto) 11.0 H, Eos % (Auto) 3.1, Baso % (Auto) 0.4, Absolute Neuts (auto) 4.8, Absolute Lymphs (auto) 1.77, Nucleated RBC % 0, Sodium 136, Potassium 3.8, Chloride 103, Carbon Dioxide 23.7, Anion Gap 10, BUN 16, Creatinine 0.98, Estim Creat Clear Calc 33.85 L, Est GFR (MDRD) Non-Af 57 L, BUN/Creatinine Ratio 16.8, Glucose 105 H, Calcium 8.8, Blood Type A POSITIVE, Antibody Screen NEGATIVE Radiography Diagnostic Testing: Radiology Impression Chest X-Ray 10/11/24 17:45 IMPRESSION: Worsening perihilar vascular and interstitial lung markings, differential as given above. - Other findings discussed above. Reading Location: [facility] Hip/Pelvis X-Ray 10/11/24 17:45 IMPRESSION: Acute right femoral neck fracture. - Findings discussed above. Reading Location: [facility] Hip X-Ray 10/12/24 11:11 IMPRESSION: Right hip hemiarthroplasty for right femoral neck fracture. Reading Location: [id number] Physical Exam Const alert, oriented x3 and no apparent distress General Appearance: cooperative HEENT normocephalic, head/scalp atraumatic, moist oral mucous membranes and oropharynx normal Eyes EOMs intact bilaterally Neck supple and no JVD Lymph Lymphatic: no lymphedema noted Resp Resp Narrative: mildly diminished breath sounds bibasally, no wheezes or crackles. On 2L of oxygen by nasal canula Cardio regular rate, regular rhythm, S1 normal heart sound, S2 normal heart sound and no murmurs GI normal to inspection, nondistended, normoactive bowel sounds, soft to palpation, non-tender and non-distended Extremity normal capillary refill and no clubbing, cyanosis or edema General Extremity: no tenderness to palpation of joints or extremities Skin General Skin Exam: no breakdown Neuro CN's II-XII intact bilaterally, no focal motor deficits, no sensory deficits noted and deep tendon reflexes 2+ bilaterally Motor Exam: strength 5/5 throughout and general weakness Psych thought process normal, cooperative and affect normal Appearance: appropriate Assessment & Plan Assessment/Plan (1) Fall: (2) Closed right hip fracture: PLAN: Plan #Debility and weakness due to mechanical fall with resultant right closed hip fracture * Pain is fairly well-controlled today. PT OT on board. * Imaging done showed acute right femoral neck fracture * Orthopedic surgery on board. She did have right hip cemented hemiarthroplasty today. * On p.o. Tylenol, oxycodone and IV morphine as needed for pain * For precautions. #Hypoxia * #Hypoxia * She is on 2 L of oxygen. CXR showed worsening perihilar vascular nad interstitial lung markings, clincal correlation for pulmonary vascular congestion and intersitial edema vs intertitial pneumonitis, and 9.5 mm dense nodular opacity overlying the left perihilar midlung field unchanged from prior study * check BNP * Breathing treatments bronchodilators. Titrate up to maintain aturation above 90%. * #DVT prophylaxis: Xarelto 10 mg daily for 30 days as per orthopedic surgery. Disposition: Will depend on PT OT evaluation but she would likely need placement. Charges/Coding Visit Charges Inpatient E&M: 35741 Subs Hosp L2
[2024-10-12] MEDS: Cefazolin 2 GM in 0.9% Normal Saline (100mL Bag) 100 ML IV ×2 (15:14→20:33)
[2024-10-12] MEDS: Senna/Docusate Sodium 1 Tablet 2 TABLET PO ×2 (15:14→20:21)
[2024-10-12 15:25] LABS: Pro- Brain NATRIURETIC PEPTIDE 654 pg/mL (<=1800)
[2024-10-13] VITALS (10 sets, daily range): BP systolic 85–129; BP diastolic 55–68; PULSE 67–92; RESP 16; TEMP 36.6–37.1; O2SAT 93–100
[2024-10-13] MEDS: Cefazolin 2 GM in 0.9% Normal Saline (100mL Bag) 100 ML IV ×2 (06:19→14:29)
[2024-10-13 07:25] LABS: Hematocrit 31.1 % (37-47); Hemoglobin 10.7 g/dL (12.0-15.0); Immature Granulocytes Count 0.030 X10^3/uL (0.0-0.0); Mean Corp Hgb Conc 34.4 g/dL (32-36); Mean Corpuscular Volume 87.4 fL (81-99); Mean Platelet Vol. 10.4 fl (6.2-12.0); NRBC Flagged by Analyzer 0 % (0-5); Platelet Count 150 K/mm3 (150-450); RBC Distribution Width CV 13.9 % (11.6-14.6); RBC Distribution Width SD 44.5 fl (35.1-43.9); Red Blood Count 3.56 M/mm3 (4.2-5.4); White Blood Count 9.6 K/mm3 (4.4-11.0)
[2024-10-13 07:42] LABS: Anion Gap 9 (5-15); BUN 17 mg/dL (4-19); BUN/Creat Ratio 18.6 RATIO (10-20); Calcium,Total 8.4 mg/dL (7.6-11.0); Carbon Dioxide 23.0 mmol/L (21.0-32.0); Chloride 102 mmol/L (98-108); Estimated Creatinine Clearance 37.28 ml/min (50-250); Glucose 91 mg/dL (70-99); Potassium 3.7 mmol/L (3.3-5.1)
[2024-10-13] MEDS: Senna/Docusate Sodium 1 Tablet 2 TABLET PO ×2 (09:25→21:45)
--- NOTE | 2024-10-13 09:27 | PN.HOSP_ITS ---
Reason for Visit Chief Complaint: Right hip pain Subjective Subjective Hypotensive earlier. Worked with therapy and did well but felt lightheaded. Has had this lightheadedness for months with standing but does not happen all the time. Objective Data Objective Data Vital Signs: Vital Signs Temp Pulse Resp BP Pulse Ox O2 Del Method O2 Flow Rate 36.7 C 86 16 109/61 97 Nasal Cannula 2 10/13/24 08:57 10/13/24 08:57 10/13/24 08:57 10/13/24 08:57 10/13/24 08:57 10/13/24 08:57 10/13/24 08:57 Oxygen Flow Rate (L/min) 2 Oxygen Delivery Method Nasal Cannula Weight: 55 kg Body Mass Index (BMI) 23.6 Intake & Output: Intake and Output for Last 24 Hours 10/11/24 10/12/24 10/13/24 23:59 23:59 23:59 Intake Total 1320 / 1320 110 / 110 Output Total 625 / 625 400 / 400 Balance 695 / 695 -290 / -290 Lab / Micro Data 10/13/24 07:02 10/13/24 07:02 Labs: Laboratory Results - last 24 hr 10/12/24 14:58: NT pro BNP II 654 10/13/24 07:02: WBC 9.6, RBC 3.56 L, Hgb 10.7 L, Hct 31.1 L, MCV 87.4, MCH 30.1, MCHC 34.4, RDW Std Deviation 44.5 H, RDW Coeff of Fatoumata 13.9, Plt Count 150, MPV 10.4, Immature Gran % (Auto) 0.300, Neut % (Auto) 74.0 H, Lymph % (Auto) 13.7 L, [place] % (Auto) 8.7, Eos % (Auto) 2.9, Baso % (Auto) 0.4, Absolute Neuts (auto) 7.1, Absolute Lymphs (auto) 1.32, Nucleated RBC % 0, Sodium 135, Potassium 3.7, Chloride 102, Carbon Dioxide 23.0, Anion Gap 9, BUN 17, Creatinine 0.89, Estim Creat Clear Calc 37.28 L, Est GFR (MDRD) Non-Af 64, BUN/Creatinine Ratio 18.6, Glucose 91, Calcium 8.4 Micro: Microbiology 10/12/24 19:52 Mucosa - Nasopharyngeal Respiratory Panel (PCR) - Final Radiography Diagnostic Testing: Radiology Impression Hip X-Ray 10/12/24 11:11 IMPRESSION: Right hip hemiarthroplasty for right femoral neck fracture. Reading Location: [facility] Physical Exam Const alert and no apparent distress Constitutional Narrative: Up in chair. HEENT head/scalp atraumatic Resp normal respiratory effort, no retractions, no use of accessory muscles and clear to auscultation bilaterally Cardio regular rate, regular rhythm, S1 normal heart sound and S2 normal heart sound GI normal to inspection, nondistended, normoactive bowel sounds, soft to palpation, non-tender and non-distended Neuro Sensorium / Orientation: awake and alert Assessment & Plan Assessment/Plan (1) Fall: (2) Closed right hip fracture: PLAN: Plan Right hip fxr: * Right hip cemented hemiarthroplasty on 10/12 * follow up with ortho as oupt. * weight bearing as tolerated. Debility and weakness * PT OT * Doing well with therapy and dissipate plan is for home health care Hypotension * Patient feeling dizzy, standing up. Concern for orthostatic hypotension as this been going on for months. With ongoing symptoms, I am reluctant to send her home being that she lives by herself and just had this hip fracture with repair. I will start midodrine and check orthostats in the morning. Hypoxia * She is on 2 L of oxygen. CXR showed worsening perihilar vascular nad interstitial lung markings, clincal correlation for pulmonary vascular congestion and interstitial edema vs interstitial pneumonitis, and 9.5 mm dense nodular opacity overlying the left perihilar midlung field unchanged from prior study * check BNP * Breathing treatments bronchodilators. Titrate up to maintain saturation above 90%. DVT prophylaxis: Xarelto 10 mg daily for 30 days as per orthopedic surgery. Charges/Coding Visit Charges Inpatient E&M: 15433 Subs Hosp L2
--- NOTE | 2024-10-13 12:42 | PN.ORTHO_ITS ---
Subjective Subjective POD 1 right hip alonzo for NOF. well. was up using walker. min pain. Objective Data Objective Data Vital Signs: Vital Signs Temp Pulse Resp BP Pulse Ox O2 Del Method O2 Flow Rate 98.1 F 82 16 99/63 93 Nasal Cannula 2 10/13/24 08:57 10/13/24 11:53 10/13/24 08:57 10/13/24 11:53 10/13/24 09:45 10/13/24 09:00 10/13/24 11:32 Oxygen Flow Rate (L/min) 2 Oxygen Delivery Method Nasal Cannula Weight: 121 lb 4.068 oz Body Mass Index (BMI) 23.6 Intake & Output: Intake and Output for Last 24 Hours 10/11/24 10/12/24 10/13/24 23:59 23:59 23:59 Intake Total 1320 / 1320 110 / 110 Output Total 625 / 625 400 / 400 Balance 695 / 695 -290 / -290 Lab / Micro Data 10/13/24 07:02 10/13/24 07:02 Labs: Laboratory Results - last 24 hr 10/12/24 14:58: NT pro BNP II 654 10/13/24 07:02: WBC 9.6, RBC 3.56 L, Hgb 10.7 L, Hct 31.1 L, MCV 87.4, MCH 30.1, MCHC 34.4, RDW Std Deviation 44.5 H, RDW Coeff of Fatoumata 13.9, Plt Count 150, MPV 10.4, Immature Gran % (Auto) 0.300, Neut % (Auto) 74.0 H, Lymph % (Auto) 13.7 L, [place] % (Auto) 8.7, Eos % (Auto) 2.9, Baso % (Auto) 0.4, Absolute Neuts (auto) 7.1, Absolute Lymphs (auto) 1.32, Nucleated RBC % 0, Sodium 135, Potassium 3.7, Chloride 102, Carbon Dioxide 23.0, Anion Gap 9, BUN 17, Creatinine 0.89, Estim Creat Clear Calc 37.28 L, Est GFR (MDRD) Non-Af 64, BUN/Creatinine Ratio 18.6, Glucose 91, Calcium 8.4 Micro: Microbiology 10/12/24 19:52 Mucosa - Nasopharyngeal Respiratory Panel (PCR) - Final Radiography Diagnostic Testing: hip xrays, good alignment of alonzo. a little tight in canal - likely reason for collar not sitting down fully. Physical Exam Const alert and oriented x3 Constitutional Narrative: able to rise from chair independently, dressing dry, intact, thigh soft. nvi. General Appearance: cooperative Assessment & Plan Assessment/Plan (1) Closed right hip fracture: PLAN: POD 1 right hip alonzo. doing very well already. WBAT. FU 2 weeks post discharge.
[2024-10-13] MEDS: 0.9% Saline Lock 10 ML Syringe IV ×2 (14:30→21:47)
--- NOTE | 2024-10-13 14:52 | CASEMGMT ---
SW Assessment: Face to Face with pt for initial transition planning/care coordination assessment. SW introduced self and role at [facility], pt voices understanding and consents to assessment. Pt is A&O x4 and answers all questions appropriately at this time. Care providers, pharmacy, and demographics verified/updated. Admitting Dx: R Hip Fx PCP: Jason Specialists: None Preferred Pharmacy: [facility] Insurance: [employer] MCR ADV Prescription Benefit: yes LNOK: Son Richard & Shaka, local. Pt reports dtr in [place]. Another dtr at [facility] this year. Pt spouse previously . Living Arrangements: Pt lives alone in a single story home with her cat. Pt reports 3 stairs plus one step to enter with handrails. Pt is independent with all ADL. Transportation: Pt drives self and denies concerns with transportation. DME: None HHC/SNF: None Pt states no concerns with going home at time of dc if she remains for 1-2 more days until blood pressure is stabilized. Pt does report that she feels that she has had blood pressure issues at home, as there are times pt feels unwell, but doesn't have to stop what I'm doing. Pt states no further concerns/needs. Pt reports that she does not want OP therapy or HHC therapy at this time. Pt reports she does not think she will need a walker, but if needed, would be agreeable. SW to follow. Advised pt to ask SW if any further questions/concerns/needs arise, voices understanding. Pt Goal: Home [facility]
[2024-10-14 03:35] VITALS: BP 114/57; PULSE 81; RESP 16; TEMP 37.3; O2SAT 92
--- NOTE | 2024-10-14 07:55 | PN.HOSP_ITS ---
Reason for Visit Chief Complaint: Right hip pain Subjective Subjective Still feeling dizzy upon standing. [place] less secure working with therapy. Objective Data Objective Data Vital Signs: Vital Signs Temp Pulse Resp BP Pulse Ox O2 Del Method O2 Flow Rate 37.3 C H 81 16 114/57 L 92 Nasal Cannula 2 10/14/24 03:35 10/14/24 03:35 10/14/24 03:35 10/14/24 03:35 10/14/24 03:35 10/14/24 03:35 10/14/24 03:35 Oxygen Flow Rate (L/min) 2 Oxygen Delivery Method Nasal Cannula Weight: 55 kg Body Mass Index (BMI) 23.6 Intake & Output: Intake and Output for Last 24 Hours 10/12/24 10/13/24 10/14/24 23:59 23:59 23:59 Intake Total 1320 / 1320 220 / 430 320 / 320 Output Total 625 / 625 400 / 400 Balance 695 / 695 -180 / 30 320 / 320 Lab / Micro Data 10/13/24 07:02 10/13/24 07:02 Micro: Microbiology 10/12/24 19:52 Mucosa - Nasopharyngeal Respiratory Panel (PCR) - Final Physical Exam Const alert and no apparent distress HEENT head/scalp atraumatic and moist oral mucous membranes Resp normal respiratory effort and no retractions Neuro Sensorium / Orientation: awake and alert Assessment & Plan Assessment/Plan (1) Fall: (2) Closed right hip fracture: PLAN: Plan Right hip fxr: * Right hip cemented hemiarthroplasty on 10/12 * follow up with ortho as oupt. * weight bearing as tolerated. Debility and weakness * PT OT * Doing well with therapy and dissipate plan is for home health care Orthostatic hypotension * P positive orthostats on the eighth. Started on midodrine. Will recheck today. Hypoxia * She is on 2 L of oxygen. CXR showed worsening perihilar vascular nad interstitial lung markings, clincal correlation for pulmonary vascular congestion and interstitial edema vs interstitial pneumonitis, and 9.5 mm dense nodular opacity overlying the left perihilar midlung field unchanged from prior study * check BNP * Breathing treatments bronchodilators. Titrate up to maintain saturation above 90%. DVT prophylaxis: Xarelto 10 mg daily for 30 days as per orthopedic surgery. Disposition: Looking at SNF now. Charges/Coding Visit Charges Inpatient E&M: 90757 Subs Hosp L1
[2024-10-14 08:00] VITALS: BP 119/77; BP 128/74; BP 97/63; PULSE 81; PULSE 85; PULSE 93; RESP 17; TEMP 37; O2SAT 97
[2024-10-14] MEDS: Senna/Docusate Sodium 1 Tablet 2 TABLET PO ×2 (08:02→20:42)
--- NOTE | 2024-10-14 09:04 | CASEMGMT ---
Discharge Planning A list of?SNF providers including quality and resource use data and consistent with the patient's preferred geographic region, medical needs, and insurance network was created in [facility] Guide.? This list was provided to the SW. Nancy Rea Discharge Planning Asst.
--- NOTE | 2024-10-14 11:11 | CASEMGMT ---
Addendum entered by Juliann Anderson 10/14/24 11:37: TCU accepted referral. Precert to be started. Pt updated. [facility] Original Note: Social Work- SW met with pt to discuss discharge planning. Pt agreeable to SNF. A list of SNF providers including quality and resource use data and consistent with the patient?s preferred geographic region, medical needs, and insurance network were provided from the [employer]Port Guide. Pt would like referral to TCU. Pt will review list for additional choices if needed. AMEENA completed referral to TCU admissions. AMEENA remains available to follow. [facility]
[2024-10-14 11:20] VITALS: BP 116/73; PULSE 74; RESP 17; TEMP 36.9; O2SAT 95
[2024-10-14] MEDS: Ensure Plus High Protein 120 ML LIQUID PO ×2 (11:24→17:00)
--- NOTE | 2024-10-14 15:27 | TREXTCAR_ITS ---
Diet Diet Order/Speech Therapy: INPATIENT Hospital Diet / Speech Therapy Order(s) 10/12/24 11:00 Diet: Regular - General Routine Orders/Code Status Code Status: Full Code DC O2, CPAP, BIPAP needs Home O2 Discharge instructions: No Wound(s) right hip: Wound Type: Surgical Incision Therapies Weight Bearing: Weight bearing as tolerated Extremity Affected:: Right Lower Physical Therapy: Eval and Treat Occupational Therapy: Eval and Treat Problem/Diagnosis (1) Fall: Status: Acute Code(s): W19.XXXA - Unspecified fall, initial encounter (2) Closed right hip fracture: Status: Acute Code(s): S72.001A - Fracture of unspecified part of neck of right femur, initial encounter for closed fracture Plan Right hip fxr: * Right hip cemented hemiarthroplasty on 10/12 * follow up with ortho as oupt. * weight bearing as tolerated. Debility and weakness * PT OT * Doing well with therapy and dissipate plan is for home health care Orthostatic hypotension * P positive orthostats on the eighth. Started on midodrine. Will recheck today. Hypoxia * She is on 2 L of oxygen. CXR showed worsening perihilar vascular nad interstitial lung markings, clincal correlation for pulmonary vascular congestion and interstitial edema vs interstitial pneumonitis, and 9.5 mm dense nodular opacity overlying the left perihilar midlung field unchanged from prior study * check BNP * Breathing treatments bronchodilators. Titrate up to maintain saturation above 90%. DVT prophylaxis: Xarelto 10 mg daily for 30 days as per orthopedic surgery. Disposition: Looking at SNF now. Allergies/Procedures Done in Hospital Allergies hydrocodone Allergy (Verified 10/11/24 16:41) hallucinations Procedures: - (Right hip cemented hemiarthroplasty) Type of Care/Length of Stay Estimated LOS: Convalescent Care Less Than 30 days Type of Care Needed: Skilled Rehab Potential: Good Prognosis: Good Additional Orders/Day of Discharge Day of Discharge: 10/14/24 Discharge Plan Admission Admit Date/Time: 10/11/24 20:09 Primary Reason for Your Visit: right hip fracture. Attending Provider: Dioni Gauthier Primary Care Provider: Raine Gomez Consulting Providers: Elie Estrada; Becky Arias; Whitney Pedroza Discharge Orders/Prescriptions Prescriptions: New sennosides-docusate sodium [Stimulant Laxative Plus] 8.6-50 mg Tablet 2 tab PO BID Qty: 0 0RF midodrine 5 mg Tablet 10 mg PO TIDCM Qty: 0 0RF acetaminophen 500 mg Tablet 1,000 mg PO Q8 PRN (Reason: Pain) Qty: 0 0RF oxycodone 5 mg Tablet 5 mg PO Q4H PRN PRN (Reason: Pain Score 4-10) Qty: 0 0RF Xarelto 10 mg Tablet 10 mg PO DINNER Qty: 0 0RF Ensure Plus High Protein 0.08 gram-1.5 kcal/mL Liquid 120 ml PO TIDCM Qty: 0 0RF Continued multivitamin with folic acid [Thera] 1 TABLET tablet 1 tab PO DAILY Patient Comments: supplement Vitamin D3 1 tab PO DAILY Patient Comments: supplement folic acid 1 mg tablet 2 mg PO DAILY ascorbic acid (vitamin C) [C-500] 500 mg tablet,chewable 1 g PO DAILY cyanocobalamin (vitamin B-12) 1,000 mcg/mL solution 1,000 mcg IM QMONTH meloxicam 15 mg tablet 15 mg PO QHS Referrals / Follow Up: Raine Gomez MD [Primary Care Provider] - Within 2 Weeks Elie Estrada MD [Med Staff - Active Staff] - Within 2 Weeks Disposition Disposition (needs filled in before D/C Order can be placed): [facility]
[2024-10-14 16:50] VITALS: BP 138/69; PULSE 79; RESP 18; TEMP 36.7; O2SAT 93
[2024-10-14 20:32] VITALS: BP 144/85; PULSE 74; RESP 18; TEMP 37.1; O2SAT 93
[2024-10-15 02:52] VITALS: BP 135/71; PULSE 80; RESP 18; TEMP 36.7; O2SAT 92
--- NOTE | 2024-10-15 07:47 | PN.HOSP_ITS ---
Reason for Visit Chief Complaint: Right hip pain Subjective Subjective Feeling well. Had BM yesterday. Objective Data Objective Data Vital Signs: Vital Signs Temp Pulse Resp BP Pulse Ox O2 Del Method O2 Flow Rate 36.7 C 80 18 135/71 H 92 Room Air 2 10/15/24 02:52 10/15/24 02:52 10/15/24 02:52 10/15/24 02:52 10/15/24 02:52 10/15/24 02:52 10/14/24 03:35 Oxygen Flow Rate (L/min) 2 Oxygen Delivery Method Room Air Weight: 55 kg Body Mass Index (BMI) 23.6 Intake & Output: Intake and Output for Last 24 Hours 10/13/24 10/14/24 10/15/24 23:59 23:59 23:59 Intake Total 220 / 430 320 / 320 500 / 500 Output Total 400 / 400 Balance -180 / 30 320 / 320 500 / 500 Lab / Micro Data 10/13/24 07:02 10/13/24 07:02 Micro: Microbiology 10/12/24 19:52 Mucosa - Nasopharyngeal Respiratory Panel (PCR) - Final Physical Exam Const alert and no apparent distress Constitutional Narrative: up in chair. Resp normal respiratory effort, no retractions, no use of accessory muscles and clear to auscultation bilaterally Cardio regular rate, regular rhythm, S1 normal heart sound and S2 normal heart sound GI normal to inspection, nondistended, normoactive bowel sounds, soft to palpation and non-tender Extremity normal to inspection and full ROM Neuro Sensorium / Orientation: awake and alert Assessment & Plan Assessment/Plan (1) Fall: (2) Closed right hip fracture: PLAN: Plan Right hip fxr: * Right hip cemented hemiarthroplasty on 10/12 * follow up with ortho as oupt. * weight bearing as tolerated. Debility and weakness * PT OT * Doing well with therapy and dissipate plan is for home health care Orthostatic hypotension * positive orthostats on the eighth. Started on midodrine. Will recheck today. Hypoxia * She is on 2 L of oxygen. CXR showed worsening perihilar vascular nad interstitial lung markings, clincal correlation for pulmonary vascular congestion and interstitial edema vs interstitial pneumonitis, and 9.5 mm dense nodular opacity overlying the left perihilar midlung field unchanged from prior study * check BNP * Breathing treatments bronchodilators. Titrate up to maintain saturation above 90%. DVT prophylaxis: Xarelto 10 mg daily for 30 days as per orthopedic surgery. Disposition: DC to TCU today.
[2024-10-15 08:08] VITALS: O2SAT 93
--- NOTE | 2024-10-15 09:15 | DS.PCM_ITS ---
Providers Date of Admission: 10/11/24 Primary Care Physician: Dr. Raine Gomez MD Consultations 10/11/24 20:48 Consult: Orthopedics Routine Consulting Provider: Elie Estrada Reason for Consult: r hip fracture EMERGENT Consult: No MD Notified: Yes Date Notified: 10/11/24 Time Notified: 20:44 Method of Notification: ED Physician Initiated Reason For Visit: RIGHT HIP FRACTURE Diagnosis Discharge Diagnosis (1) Fall: Status: Acute Code(s): W19.XXXA - Unspecified fall, initial encounter (2) Closed right hip fracture: Status: Acute Code(s): S72.001A - Fracture of unspecified part of neck of right femur, initial encounter for closed fracture Plan Right hip fxr: * Right hip cemented hemiarthroplasty on 10/12 * follow up with ortho as oupt. * weight bearing as tolerated. Debility and weakness * PT OT * Doing well with therapy and dissipate plan is for home health care Orthostatic hypotension * positive orthostats on the eighth. Started on midodrine. Will recheck today. Hypoxia * She is on 2 L of oxygen. CXR showed worsening perihilar vascular nad interstitial lung markings, clincal correlation for pulmonary vascular congestion and interstitial edema vs interstitial pneumonitis, and 9.5 mm dense nodular opacity overlying the left perihilar midlung field unchanged from prior study * check BNP * Breathing treatments bronchodilators. Titrate up to maintain saturation above 90%. DVT prophylaxis: Xarelto 10 mg daily for 30 days as per orthopedic surgery. Disposition: DC to TCU today. Medications at Discharge Home Medications multivitamin with folic acid 400 mcg tablet (Thera) 1 tab PO DAILY 09/03/14 Vitamin D3 1 tab PO DAILY 09/04/14 ascorbic acid (vitamin C) 500 mg chewable tablet (C-500) 1 g PO DAILY 10/11/24 cyanocobalamin (vitamin B-12) 1,000 mcg/mL injection solution 1,000 mcg IM QMONTH supplement 10/11/24 folic acid 1 mg tablet 2 mg PO DAILY 10/11/24 meloxicam 15 mg tablet 15 mg PO QHS pain 10/11/24 acetaminophen 500 mg tablet 1,000 mg (2 x 500 mg) PO Q8 PRN Pain #0 tabs 10/14/24 food supplemt, lactose-reduced 0.08 gram-1.5 kcal/mL oral liquid (Ensure Plus High Protein) 120 ml PO TIDCM #0 mL 10/14/24 midodrine 5 mg tablet 10 mg (2 x 5 mg) PO TIDCM #0 tabs 10/14/24 oxycodone 5 mg tablet 5 mg PO Q4H PRN PRN Pain Score 4-10 #0 tabs 10/14/24 rivaroxaban 10 mg tablet (Xarelto) 10 mg PO DINNER #0 tabs 10/14/24 sennosides 8.6 mg-docusate sodium 50 mg tablet (Stimulant Laxative Plus) 2 tab PO BID #0 tabs 10/14/24 Hospital Course Operations - (Right hip cemented hemiarthroplasty) Weight / BMI Weight Weight: 55 kg Body Mass Index (BMI) 23.6 ABG / Lab / Microbiology Data 10/13/24 07:02 10/13/24 07:02 Microbiology: Microbiology 10/12/24 19:52 Mucosa - Nasopharyngeal Respiratory Panel (PCR) - Final D/C Instructions DC O2, CPAP, BIPAP Needs Home O2 Discharge instructions: No Meaningful Use Info Meaningful Use Meaningful Use Diagnoses (Choose all that apply): None applicable Discharge Plan Admission Admit Date/Time: 10/11/24 20:09 Primary Reason for Your Visit: right hip fracture. Attending Provider: Dioni Gauthier Primary Care Provider: Raine Gomez Consulting Providers: Elie Estrada; Becky Arias; Whitney Pedroza Discharge Orders/Prescriptions Prescriptions: New sennosides-docusate sodium [Stimulant Laxative Plus] 8.6-50 mg Tablet 2 tab PO BID Qty: 0 0RF midodrine 5 mg Tablet 10 mg PO TIDCM Qty: 0 0RF acetaminophen 500 mg Tablet 1,000 mg PO Q8 PRN (Reason: Pain) Qty: 0 0RF oxycodone 5 mg Tablet 5 mg PO Q4H PRN PRN (Reason: Pain Score 4-10) Qty: 0 0RF Xarelto 10 mg Tablet 10 mg PO DINNER Qty: 0 0RF Ensure Plus High Protein 0.08 gram-1.5 kcal/mL Liquid 120 ml PO TIDCM Qty: 0 0RF Continued multivitamin with folic acid [Thera] 1 TABLET tablet 1 tab PO DAILY Patient Comments: supplement Vitamin D3 1 tab PO DAILY Patient Comments: supplement folic acid 1 mg tablet 2 mg PO DAILY ascorbic acid (vitamin C) [C-500] 500 mg tablet,chewable 1 g PO DAILY cyanocobalamin (vitamin B-12) 1,000 mcg/mL solution 1,000 mcg IM QMONTH meloxicam 15 mg tablet 15 mg PO QHS Referrals / Follow Up: Raine Gomez MD [Primary Care Provider] - Within 2 Weeks Elie Estrada MD [Med Staff - Active Staff] - Within 2 Weeks Disposition Disposition (needs filled in before D/C Order can be placed): Long-Term Facility Charges/Coding Visit Charges Inpatient E&M: 61707 Disch Hosp
--- NOTE | 2024-10-15 09:42 | CASEMGMT ---
Social Work Precert has been obtained.? Physician updated and pt is ready for discharge today.?SW met with pt and they are agreeable to discharge plan as stated above. SW faxed discharge to TCU admissions.?Bedside nurse notified of discharge. Disposition: TCU, skilled level of care [facility]
[2024-10-15 10:24] VITALS: BP 100/70; BP 108/82; BP 129/72; PULSE 88; PULSE 92; PULSE 98
[2024-10-15 10:26] VITALS: BP 129/72; PULSE 88; RESP 18; TEMP 36.9; O2SAT 96
--- NOTE | 2024-10-15 10:30 | PHA.DC.MR.R ---
Pharmacy [place] Med Reconciliation Pharmacy Service has performed discharge medication reconciliation for this patient. The patient's discharge medication list was reviewed for discrepancies and discrepancies were resolved. Medications at Discharge Home Medications multivitamin with folic acid 400 mcg tablet (Thera) 1 tab PO DAILY 09/03/14 Vitamin D3 1 tab PO DAILY 09/04/14 ascorbic acid (vitamin C) 500 mg chewable tablet (C-500) 1 g PO DAILY 10/11/24 cyanocobalamin (vitamin B-12) 1,000 mcg/mL injection solution 1,000 mcg IM QMONTH supplement 10/11/24 folic acid 1 mg tablet 2 mg PO DAILY 10/11/24 meloxicam 15 mg tablet 15 mg PO QHS pain 10/11/24 acetaminophen 500 mg tablet 1,000 mg (2 x 500 mg) PO Q8 PRN Pain #0 tabs 10/14/24 food supplemt, lactose-reduced 0.08 gram-1.5 kcal/mL oral liquid (Ensure Plus High Protein) 120 ml PO TIDCM #0 mL 10/14/24 midodrine 5 mg tablet 10 mg (2 x 5 mg) PO TIDCM #0 tabs 10/14/24 oxycodone 5 mg tablet 5 mg PO Q4H PRN PRN Pain Score 4-10 #0 tabs 10/14/24 rivaroxaban 10 mg tablet (Xarelto) 10 mg PO DINNER #0 tabs 10/14/24 sennosides 8.6 mg-docusate sodium 50 mg tablet (Stimulant Laxative Plus) 2 tab PO BID #0 tabs 10/14/24
[2024-10-15] MEDS: Senna/Docusate Sodium 1 Tablet 2 TABLET PO (10:31)
[2024-10-15] MEDS: Ensure Plus High Protein 120 ML LIQUID PO (10:31)
[2024-10-15 13:35] VITALS: BP 132/67; PULSE 88; RESP 16; TEMP 36.9; O2SAT 96
== END 2024-10-15 13:51 | disposition skilled nursing facility (03) | DRG 522 ==
LOC: ED 19:30 → MS3 20:36
PROVIDERS: Orthopaedic Surgery Sports Medicine; Student in an Organized Health Care Education/Training Program; Admitting Provider Internal Medicine; Emergency Provider Emergency Medicine; PCP Internal Medicine
PROC: 0SRR0J9 Replacement of Right Hip Joint, Femoral Surface with Synthetic Substitute, Cemented, Open Approach (ICD-10-PCS; CPT 27125; principal; 2024-10-12 09:00)
DX: S72.001A Fracture of unspecified part of neck of right femur, initial encounter for closed fracture (principal); I95.1 Orthostatic hypotension; W19.XXXA Unspecified fall, initial encounter; R09.02 Hypoxemia; R53.81 Other malaise; Y92.511 Restaurant or cafe as the place of occurrence of the external cause
CPT/HCPCS: 36415; 71045; 73502; 80048; 83880; 85025; 86850; 86900; 86901; 87633; 93005; 94668; 97116; 97162; 97166; 97530; 97535; 99284; C1776; A4216; J2405

== ENCOUNTER 2024-10-15 14:01 | Inpatient (IN) | payer MEDICARE, OTHER, SELFPAY ==
[2024-10-15 14:09] VITALS: BP 136/78; PULSE 94; RESP 18; TEMP 36.7; O2SAT 97; BMI 24.9
[2024-10-15 15:13] VITALS: BMI 25.0
[2024-10-15] MEDS: Cholecalciferol (VIT D3) 25 MCG TABLET (1,000 UNITS) PO (17:56)
[2024-10-15] MEDS: Ensure Plus High Protein 120 ML LIQUID PO (17:58)
[2024-10-15 18:01] VITALS: BP 151/75; PULSE 80
--- NOTE | 2024-10-15 18:14 | NURSING ---
Pt BP 151/75 Dr. Chamberlain updated and N.O. received to discontinue Midodrine and continue to monitor BP.
--- NOTE | 2024-10-15 21:08 | HP.PCM_ITS ---
HPI - General General Date of Admission: 10/15/24 Date of Service: 10/15/24 Chief Complaint: Here for rehabilitation. HPI Narrative ARIEL MATA, is a 84 Female who presents with followin10/11/2024 [facility] ED fall, right hip injury. Fell at restaurant, onto right hip. Able to bear some weight right lower extremity, pain with weight bearing. Morphine, Zofran given. X-ray showed right hip fracture. 10/11/[address] [facility]. Orthopedics consult, pain control, PT/OT, NPO, prepare for surgery for right hip fracture. 10/12/2024 Dr. Estrada performed right hip cemented hemiarthroplasty. 10/12/2024 Pain controlled, oxygen 2 liters per nasal cannula. Tylenol, Oxycodone, Morphine IV for pain. Chest X-ray, BNP for acute respiratory failure with hypoxia. Chest X-ray showed perihilar vascular and interstitial congestion. Xarelto 10mg daily x 30 days for DVT prophylaxis. 10/13/2024 Hypotensive, Lightheaded, chronic. WBAT, PT/OT. Start Midodrine for orthostatic hypotension. Aerosols, wean oxygen for acute respiratory failure with hypoxia. 10/14/2024 Recheck orthostatic vital signs on Midodrine. Xarelto 10mg daily x 30 days dvt prophylaxis. PT/OT SNF. 10/15/2024 Admit to TCU with debility, here for rehabilitation, strengthening, prior to discharge home alone. [facility] Medical History (Updated 10/15/24 @ 21:[address] Sander Chamberlain MD) Vitamin D deficiency Orthostatic hypotension Acute respiratory failure with hypoxia Debility Osteoporosis Home Medications ?Medication ?Instructions ?Recorded ?Last Taken ?Type multivitamin with folic acid 400 1 tab PO DAILY Supplm ent 09/03/14 10/11/24 History mcg tablet (Thera) Vitamin D3 1 tab PO DAILY Supplement 10/11/24 History ascorbic acid (vitamin C) 500 mg 1 g PO DAILY Suppleme nt 10/11/24 10/11/24 History chewable tablet (C-500) cyanocobalamin (vitamin B-12) 1,000 mcg IM QMONTH supp lement 10/11/24 10/03/24 History 1,000 mcg/mL injection solution folic acid 1 mg tablet 2 mg PO DAILY Supplement 07/3010/11/24 History meloxicam 15 mg tablet 15 mg PO QHS pain 10/11/24 U nknown History acetaminophen 500 mg tablet 1,000 mg (2 x 500 mg) PO Q 8 PRN 10/14/24 10/15/24 13:20 Rx Pain #0 tabs food supplemt, lactose-reduced 120 ml PO TIDCM Supplem ent #0 mL 10/14/24 10/14/24 Rx 0.08 gram-1.5 kcal/mL oral liquid (Ensure Plus High Protein) midodrine 5 mg tablet 10 mg (2 x 5 mg) PO TIDCM BP #0 10/14/24 10/14/24 11:25 Rx tabs oxycodone 5 mg tablet 5 mg PO Q4H PRN PRN Pain Sco re 10/14/24 10/14/24 03:45 Rx 4-10 #0 tabs rivaroxaban 10 mg tablet (Xarelto) 10 mg PO DINNER Blo od Thinner #0 10/14/24 10/13/24 Rx tabs sennosides 8.6 mg-docusate sodium 2 tab PO BID Constip ation #0 tabs 10/14/24 10/14/24 Rx 50 mg tablet (Stimulant Laxative Plus) Allergy/AdvReac Type Severity Reaction Status Date / Time hydrocodone Allergy hallucinati Verified 10/11/24 16:41 ons Surgical History (Updated 10/15/24 @ 21:[address] Sander Chamberlain MD) History of right hip hemiarthroplasty History of left knee replacement Social History (Updated 10/15/24 @ 21:[address] Sander Chamberlain MD) household members: none Smoking Status: Never smoker alcohol intake: never substance use type: does not use ROS Constitutional Constitutional: Reports weakness; Denies chills, fever(s) or weight gain ENT HEENT: Denies headache(s), nasal congestion or nasal discharge Cardiovascular Cardiovascular: Denies chest pain or palpitations Respiratory/Chest Respiratory/Chest: Denies cough, excessive phlegm production or shortness of breath with exertion Gastrointestinal Gastrointestinal: Denies abdominal pain, nausea or vomiting Genitourinary Genitourinary: Denies dysuria Musculoskeletal Musculoskeletal: Denies joint pain or joint swelling Integumentary Integumentary: Denies rash or wounds Neurologic Neurologic: Denies focal weakness, numbness or tingling Psychiatric Psychiatric: Denies anxiety, auditory hallucinations, depression, homicidal ideation or suicidal ideation Vital Signs Vital Signs Vital Signs: 10/15/24 14:09 10/15/24 14:11 10/15/24 18:01 Temperature 98.0 F Temperature Source Temporal Pulse Rate 94 80 Pulse Rhythm Regular Pulse Strength Normal (2+) Respiratory Rate 18 Respiratory Effort Normal Non-Labored Respiratory Depth Normal Respiratory Pattern Normal Blood Pressure 136/78 H 151/75 H Blood Pressure Mean 97 100 Blood Pressure Source Monitor Monitor Blood Pressure Position Sitting Semi-Fowlers Blood Pressure Location Left Arm Right Arm Pulse Ox 97 Oxygen Delivery Method Room Air Room Air Weight Weight: 58.014 kg Body Mass Index (BMI) 25.0 Physical Exam Const alert General Appearance: cooperative HEENT normocephalic Eyes PERRL and EOMs intact bilaterally Neck supple, no JVD and no carotid bruits Resp normal respiratory effort, normal air movement and clear to auscultation bilaterally Cardio regular rate and regular rhythm GI normal to inspection, nondistended, normoactive bowel sounds, non-tender and non-distended Extremity normal capillary refill General Extremity: Negative for edema Skin no rashes or lesions noted General Skin Exam: no breakdown Psych affect normal Appearance: appropriate Assessment & Plan Assessment/Plan (1) Debility: (2) Closed right hip fracture: (3) Acute respiratory failure with hypoxia: (4) Orthostatic hypotension: (5) Vitamin D deficiency: PLAN: Plan 84 year old female with below past medical history hospitalized for right hip fracture, underwent right hip cemented hemiarthroplasty 10/12/[address] Estrada, postoperative course complicated by acute respiratory failure with hypoxia, orthostatic hypotension, admitted to TCU with debility, here for rehabilitation, strengthening, prior to discharge home alone. * Debility - PT/OT. * Pain - Tylenol 1000mg q8, Oxycodone 5mg q4 prn pain (4-10). * Bowel - senna/colace 2 tablets bid, Magnesium citrate 300mL daily prn. * Adult immunization - Administer pneumonia vaccine, covid vaccine, flu vaccine as appropriate. * DVT prophylaxis - Xarelto 10mg daily thru 11/11/2924. * Vitamin D deficiency - D3 25mcg daily. * Vitamin B12 deficiency - B12 1000mcg im qmonth. * Nutrition - Ensure Plus 120mL po tidcm, MVI 1 tablet daily. * Folate deficiency - Folic acid 2mg daily. * Osteoarthritis - Meloxicam 15mg qhs.
[2024-10-15] MEDS: 0.9% Saline Lock 10 ML Syringe IV (22:29)
--- NOTE | 2024-10-16 07:28 | NURSING ---
Written communication left for Dr. Chamberlain regarding p[t attempting to self transfer. Pt has intermittent confusion at night time.
[2024-10-16 07:56] LABS: Hematocrit 27.1 % (37-47); Hemoglobin 9.3 g/dL (12.0-15.0); Immature Granulocytes Count 0.030 X10^3/uL (0.0-0.0); Mean Corp Hgb Conc 34.3 g/dL (32-36); Mean Corpuscular Volume 86.6 fL (81-99); Mean Platelet Vol. 10.5 fl (6.2-12.0); NRBC Flagged by Analyzer 0 % (0-5); Platelet Count 212 K/mm3 (150-450); RBC Distribution Width CV 14.2 % (11.6-14.6); RBC Distribution Width SD 44.7 fl (35.1-43.9); Red Blood Count 3.13 M/mm3 (4.2-5.4); White Blood Count 6.6 K/mm3 (4.4-11.0)
[2024-10-16 08:07] VITALS: BP 134/71; PULSE 84; RESP 18; TEMP 37.2; O2SAT 95
[2024-10-16] MEDS: Ensure Plus High Protein 120 ML LIQUID PO ×3 (08:09→17:18)
[2024-10-16] MEDS: Senna/Docusate Sodium 1 Tablet 2 TABLET PO ×2 (08:10→22:16)
[2024-10-16] MEDS: Cholecalciferol (VIT D3) 25 MCG TABLET (1,000 UNITS) PO (08:11)
[2024-10-16 09:20] LABS: Anion Gap 10 (5-15); BUN 20 mg/dL (4-19); BUN/Creat Ratio 25.5 RATIO (10-20); Calcium,Total 8.4 mg/dL (7.6-11.0); Carbon Dioxide 23.2 mmol/L (21.0-32.0); Chloride 102 mmol/L (98-108); Estimated Creatinine Clearance 42.48 ml/min (50-250); Glucose 88 mg/dL (70-99); Potassium 4.0 mmol/L (3.3-5.1)
--- NOTE | 2024-10-16 10:32 | MDS.RN ---
Spoke with son Shaka on phone, son reports resident has been frequently calling him-confused. Son stats Oxyir has caused confusion for resident in the past. Written communication to Dr. Chamberlain and resident nurse verbally updated.
--- NOTE | 2024-10-16 11:31 | MDS.RN ---
MDS entry tracker completed, assessed pain.
--- NOTE | 2024-10-16 13:20 | NURSING ---
Addendum entered by Kailey Patel 10/17/24 10:33: Office returned call. Stated change dressing post op day 4, leave the steri strips in place and change dry dressing every 1-2 days and as needed. States pt can shower. Follow up 2 weeks post op. Scheduled SundayOct 27 at [address] Richter. Will need to set up transport. Original Note: Call to Dr. Estrada office for follow up appt, note dated 10-13-24 the plan states to follow up 2 weeks post discharge. Called to clarify, left VM to return call. We also need dressing orders, request left for that as well.
[2024-10-16] MEDS: Tuberculin,Purif.prot.deriv. 50 TU/ML Vial 0.1 ML ID (13:48)
[2024-10-16] MEDS: 0.9% Saline Lock 10 ML Syringe IV ×2 (13:48→22:16)
--- NOTE | 2024-10-16 14:29 | CASEMGMT ---
Social Work SW met with patient to complete initial assessment. Introduced self and role. Verified contacts. SW and pt discussed code status. Currently, full code, though, pt stated when the nurse asked pt upon admission but son was present. Pt stated the son elected for full code, and she was unsure that was her wish. SW advocated for pt to make own decisions, especially related to code status. Educated to full code, DNR-CCA with or without intubation, and DNR_CC. Pt stated she does not want anything changed until it is further discussed with her son, which may happen during POC meeting. SW to follow and educated if she decides to change her mind, to notify nursing at any time. Pt expressed understanding. SW educated to [facility] insurance with NRD 10/17 and continued stay is not guaranteed with each review. Pt's goal is to return home alone at [facility]. See SW assessment for barriers. SW will continue to follow for DC planning. Dior Tellez RAILROAD SHOP INSPECTOR BULK LOADER
--- NOTE | 2024-10-16 16:33 | PCM.PN.DRR ---
Documented by User: Jak Park 10/16/24 17:10 TCU RX Drug Regimen Review Subjective/Objective Subjective/Objective Subjective: TCU Admission. 84 year old female hospitalized for right hip fracture, underwent right hip cemented hemiarthroplasty 10/12/[address] Estrada, postoperative course complicated by acute respiratory failure with hypoxia, orthostatic hypotension. Admitted to TCU with debility, here for rehabilitation, strengthening, prior to discharge home alone. Objective: Allergies hydrocodone Allergy (Verified 10/11/24 16:41) hallucinations Current Medications Generic Name Dose Route Start Last Admin Trade Name Freq PRN Reason Stop Dose Admin Acetaminophen 1,000 mg 10/15/24 22:00 10/16/24 13:46 Acetaminophen 500 Mg Tablet PO 1,000 mg Q8 KELLY Administration Ascorbic Acid 1,000 mg 10/16/24 10:00 10/16/24 08:11 Ascorbic Acid 500 Mg Tablet PO 1,000 mg DAILY KELLY Administration Cholecalciferol 25 mcg 10/15/24 18:00 10/16/24 08:11 Cholecalciferol (Vit D3) 25 Mcg Tablet (1,000 Units) PO 25 mcg DAILY KELLY Administration Cyanocobalamin 1,000 mcg 11/03/24 10:00 Cyanocobalamin (B12) 1,000 Mcg/Ml Vial IM QMONTH KELLY Folic Acid 2 mg 10/16/24 08:00 10/16/24 08:10 Folic Acid 1 Mg Tablet PO 2 mg BREAKFAST KELLY Administration Magnesium Citrate 300 ml 10/15/24 22:00 Magnesium Citrate 300 Ml PO DAILY PRN Constipation Meloxicam 15 mg 10/15/24 22:00 10/15/24 22:28 Meloxicam 15 Mg Tablet PO 15 mg QHS KELLY Administration Multivitamins 1 tablet 10/16/24 08:00 10/16/24 08:10 Multivitamins,Therapeutic Tablet PO 1 tablet DAILYCM KELLY Administration Nutritional Formula (Lactose Free) 120 ml 10/15/24 17:45 10/16/24 12:05 Ensure Plus High Protein 120 Ml Liquid PO 120 ml TIDCM KELLY Administration Oxycodone HCl 5 mg 10/15/24 14:20 10/15/24 22:28 Oxycodone 5 Mg Tablet PO 5 mg Q4H PRN PRN Administration Pain Score 4-10 Rivaroxaban 10 mg 10/16/24 17:00 Rivaroxaban 10 Mg Tablet PO 11/11/24 23:59 DINNER KELLY Senna/Docusate Sodium 2 tablet 10/15/24 22:00 10/16/24 08:10 Senna/Docusate Sodium 1 Tablet PO 2 tablet BID KELLY Administration Sodium Chloride 10 - 40 ml 10/15/24 14:24 10/16/24 13:48 0.9% Saline Lock 10 Ml Syringe IV 10 ml UD PRN Administration SALINE FLUSH Tuberculin PPD 0.1 ml 10/23/24 10:00 Tuberculin,Purif.Prot.Deriv. 50 Tu/Ml Vial ID 10/23/24 10:01 X1 ONE Problem List (Updated 10/15/24 @ 21:[address] Sander Chamberlain MD) Vitamin D deficiency (Acute) Orthostatic hypotension (Acute) Acute respiratory failure with hypoxia (Acute) Debility (Acute) Closed right hip fracture (Acute) Vital Signs Temp Pulse Resp BP Pulse Ox O2 Del Method 99.0 F 84 18 134/71 H 95 Room Air 10/16/24 08:07 10/16/24 08:07 10/16/24 08:07 10/16/24 08:07 10/16/24 08:07 10/16/24 08:07 Oxygen Delivery Method Room Air Weight: 58.014 kg Body Mass Index (BMI) 25.0 Sodium 135 mmol/L (133-145) 10/16/24 07:10 Potassium 4.0 mmol/L (3.3-5.1) 10/16/24 07:10 Chloride 102 mmol/L (98-108) 10/16/24 07:10 Carbon Dioxide 23.2 mmol/L (21.0-32.0) 10/16/24 07:10 Anion Gap 10 (5-15) 10/16/24 07:10 BUN 20 mg/dL (4-19) H 10/16/24 07:10 Creatinine 0.80 mg/dL (0.70-1.20) 10/16/24 07:10 Est GFR (MDRD) Non-Af 73 (>60) 10/16/24 07:10 BUN/Creatinine Ratio 25.5 RATIO (10-20) H 10/16/24 07:10 Glucose 88 mg/dL (70-99) 10/16/24 07:10 Assessment/Plan: 1. Pain - Tylenol 1000 mg Q8H, Oxycodone 5mg Q4 PRN pain (4-10) (last dose: 10/15 @ 2228). Please monitor PRN medication usage as well as for constipation, headache, respiratory depression, and somnolence. 2. Bowel - senna/colace 2 tablets PO BID, Magnesium citrate 300mL daily PRN (No doses given at this time). Please monitor for constipation, PRN medication usage, loose stools, and electrolyte abnormalities. Last bowel movement: 10/15/24. 3. Osteoarthritis - Meloxicam 15mg PO QHS. Please monitor for peripheral edema, nausea, flatulence, arthralgia, and abdominal pain. Black Box Warning: serious cardiovascular events such as VA and serious GI events such as bleeding. Please monitor for bleeding effects such as blood in the urine (pink tinged urine) or bloody stool (dark tarry stool). 4. DVT prophylaxis - Xarelto 10mg daily thru 11/11/2924. Please monitor for cough, vomiting, and bleeding events such as bleeding from the gums, blood in the urine, or bloody stool. Xarelto carries a black box warning for bleeding events and abrupt discontinuation can lead to clots in cases of chronic anticoagulation. H/H/P: 9.3/27.212 5. Vitamin deficiency (D, C, B12, Folic acid) - D3: 25mcg PO daily, B12: 1000 mcg IM QMonth, C: 1000 mg tablet PO daily, Folic acid: 2 mg PO daily. Please monitor for kidney stones and abdominal/back pain. No vitamin D or B12 levels recorded. Assessment/Plan for indications treated with psychotropic medications: Resident is not prescribed scheduled or PRN psychotropic medications at the time of this drug regimen review. Medical chart and medication regimen reviewed. The following medication irregularities or issues were identified: - Please consider ordering a vitamin D and vitamin B12 level as there is no recent level recorded. Date Date of Note: 10/16/24 Documented by User: Dr. Sander Chamberlain MD 10/16/24 17:22 TCU RX Drug Regimen Review Provider Comments Provider responsibility Provider Comments to Recommendations by Pharmacy Agree
[2024-10-16 20:20] VITALS: PULSE 90; RESP 18; O2SAT 96
--- NOTE | 2024-10-17 03:53 | NURSING ---
Pt c/o feeling restless this shift. States she has not slept much. I slept maybe a half an hour. Pt requesting something to help her sleep at night. Written communication left for Dr. Chamberlain regarding pt request.
[2024-10-17 07:29] LABS: Vitamin B12 > 4000 pg/mL (180-914); Vitamin D,25 Hydroxy 118.0 ng/mL (30-100)
[2024-10-17 07:43] VITALS: BP 152/82; PULSE 90; RESP 18; TEMP 37.2; O2SAT 97
[2024-10-17] MEDS: Ensure Plus High Protein 120 ML LIQUID PO ×3 (07:44→17:16)
[2024-10-17] MEDS: Senna/Docusate Sodium 1 Tablet 2 TABLET PO ×2 (07:45→21:08)
[2024-10-17] MEDS: Cholecalciferol (VIT D3) 25 MCG TABLET (1,000 UNITS) PO (07:46)
--- NOTE | 2024-10-17 11:07 | NURSING ---
It Sales Consultant Note, Activity Asset: Grisel Meléndez is independent in her choice of daily activities. She was informed of the sitting room, activity area, pet therapy and business coordinator visits. She welcomes visits and asked for word search puzzles. Rika will watch tv, read and rest during her down times. Staff will remind her of weekly activities and respect her right to say no.
--- NOTE | 2024-10-17 12:31 | CHAPLAIN ---
Type of Pastoral Visit _x__ Initial Visit ___ Follow-up Visit ___ On-call Visit ___ General Patient Visit ___ Spiritual Assessment ___ Family Conference ___ Bereavement ___ Rapid Response ___ Code Blue ___ Other (describe below) Pastoral Care Referral From _x__ Patient ___ Family ___ Nurse ___ Physician ___ [employer] ___ Optical Instrument Inspector ___ Other (describe below) Sacrament/Intervention _x__ Active listening ___ Anointing ___ Christianity ___ Bereavement ___ Communion _x__ Katerine exploration ___ _x__ Life review _x__ Prayer ___ Reconciliation ___ Sacrament of Sick _x__ Supportive presence ___ Wedding ___ Other (describe below) Pastoral Comments patient is talkative, expresses her views on how her experience has been and what she hopes for in the days ahead; pt 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
--- NOTE | 2024-10-17 15:42 | NURSING ---
Addendum entered by Kailey Patel 10/17/24 19:27: Entered room to discuss code status and patient was asking this nurse 'what would you do'. Explained that this nurse is not allowed to give opinions or advice. Explained both DNRCC and DNRCC A with and without intubation. Patient still was asking questions and the differences between the two. Reports she called and spoke to niece who is an RT and advised her on what to do. Will discuss further with family and changed code back to full code. Original Note: SW came to nurs stating pt would like to change code status to DNRCC A No Intubation. This was explained to patient prior by AMEENA.
--- NOTE | 2024-10-17 15:48 | CASEMGMT ---
Social Work Pt requested to speak with this worker. SW spoke with pt at bedside. Pt stated she has thought about her code status further and would like to be DNR-CCA, no intubation, regardless what my son thinks. SW confirmed. Notified nursing. Dior Tellez WATER PROJECT MANAGER MRI TECHNICIAN
--- NOTE | 2024-10-17 17:46 | NURSING ---
Telephone call placed to demetrius Matt with no answer. Left voicemail to return call to update on appointment made with Dr. Richter and transport.
--- NOTE | 2024-10-17 20:17 | NURSING ---
Phone conversation with patient's son, Shaka. After explaining the differences between full code and DNR-CCA and DNR-CC with and without intubation, son wants her to remain a full code with intubation. Then if something happened that required her to life support, another discussion could take place. The son does know his mother does not want to be on machines for an extended period.
[2024-10-17] MEDS: MELATONIN 3 MG TABLET PO (21:07)
[2024-10-18 09:03] VITALS: BP 105/67; PULSE 89; RESP 16; TEMP 36.9; O2SAT 97
[2024-10-18] MEDS: Cholecalciferol (VIT D3) 25 MCG TABLET (1,000 UNITS) PO (09:05)
[2024-10-18] MEDS: Ensure Plus High Protein 120 ML LIQUID PO ×3 (09:05→17:09)
[2024-10-18] MEDS: Senna/Docusate Sodium 1 Tablet 2 TABLET PO (09:05)
[2024-10-18] MEDS: MELATONIN 3 MG TABLET PO (22:27)
[2024-10-18] MEDS: 0.9% Saline Lock 10 ML Syringe IV (22:27)
--- NOTE | 2024-10-18 22:57 | NURSING ---
Dressing change to R hip completed per order 10/18/24 @ 1951. Steri strips intact. Minimal amount of old, dry drainage noted. Site appears ecchymotic. No redness or heat noted to surgical site. Pt tolerated dressing change well. Pt denies needs for further assistance. Call light within reach. Bed pad alarm on and functioning.
[2024-10-19 02:22] VITALS: PULSE 79; O2SAT 98
[2024-10-19 08:40] VITALS: BP 102/59; PULSE 70; RESP 18; TEMP 36.2; O2SAT 94
[2024-10-19] MEDS: Ensure Plus High Protein 120 ML LIQUID PO ×3 (08:41→17:33)
[2024-10-19] MEDS: Senna/Docusate Sodium 1 Tablet 2 TABLET PO ×2 (08:42→21:37)
[2024-10-19] MEDS: Cholecalciferol (VIT D3) 25 MCG TABLET (1,000 UNITS) PO (08:43)
[2024-10-19] MEDS: 0.9% Saline Lock 10 ML Syringe IV ×2 (12:14→21:38)
--- NOTE | 2024-10-19 14:00 | NURSING ---
New order to increase melatonin from 3 mg to 10 mg at HS.
[2024-10-19] MEDS: MELATONIN 10 MG TABLET PO (21:37)
[2024-10-20] MEDS: Ensure Plus High Protein 120 ML LIQUID PO ×3 (08:08→17:52)
[2024-10-20] MEDS: Senna/Docusate Sodium 1 Tablet 2 TABLET PO (08:09)
[2024-10-20] MEDS: Cholecalciferol (VIT D3) 25 MCG TABLET (1,000 UNITS) PO (08:09)
[2024-10-20 10:00] VITALS: PULSE 80; O2SAT 98
[2024-10-20 12:57] LABS: Mucous, Urine 0 SEEN /hpf (<or=2+); Red Blood Cells-Urine 0 SEEN /hpf (0-5)
[2024-10-20 13:52] LABS: Color, Urine Yellow (Yellow); Glucose, Dipstick Normal (Normal); Ketone-Dipstick Negative (Negative); Leukocyte Esterase-Dipstick 25 /ul (Negative); Nitrite-Dipstick Negative (Negative); Occult Blood-Urine Negative /ul (Negative); Protein-Dipstick 15 mg/dl (Negative); Specific Gravity, Urine 1.020 (1.002-1.030); Urine Bilirubin Dipstick Negative (Negative)
[2024-10-20 13:57] LABS: Squamous Epithelial Cells - UA 0-5 SEEN /hpf (5-10)
[2024-10-20 13:58] LABS: Calcium Oxalate Crystals Ur 2+ /hpf (<or=2+)
[2024-10-20 16:00] VITALS: BP 108/62; PULSE 70; RESP 17; TEMP 36.7; O2SAT 95
[2024-10-20] MEDS: MELATONIN 10 MG TABLET PO (22:42)
[2024-10-21] MEDS: Cholecalciferol (VIT D3) 25 MCG TABLET (1,000 UNITS) PO (08:07)
[2024-10-21] MEDS: Ensure Plus High Protein 120 ML LIQUID PO ×3 (08:07→17:37)
[2024-10-21 08:10] VITALS: BP 104/69; PULSE 76; RESP 16; TEMP 37.2; O2SAT 99
--- NOTE | 2024-10-21 11:32 | CASEMGMT ---
Social Work AMEENA informed of son calling into RN to change pt's code status back to full code. - AMEENA spoke with pt at bedside. Pt recalled speaking with this worker prior. SW apologized for reduncancy on questioning code status, but asked pt to voice her wishes for code status. Pt stated she spoke with her niece who is a respiratory therapist and wrote down the measures pt wants, which is DNR-CCA, WITH intubation. AMEENA confirmed and informed pt that son called into to change to full code. Pt very upset with this is and stated he would have me live to 100 if I could. I don't want that. SW validated and ensured the code status would be changed to reflect pt's wishes and purple bracelet will be placed on pt to notify others in case of an emergency. Pt appreciative. - AMEENA verbally notified Virgie RN to change code status. AMEENA followed up with Director on education to previous nurse who change the code status with son's wishes. Dior Tellez CUE SELECTOR AGRICULTURAL ENGINEERING TECHNICIANS
--- NOTE | 2024-10-21 11:35 | CASEMGMT ---
Social Work SW attempted to complete MDS assessment with pt and pt adamantly refused to participate Dior Tellez BOILER CLEANER REGISTRAR COLLEGE OR UNIVERSITY
[2024-10-21 15:00] VITALS: BMI 25.2
[2024-10-21] MEDS: MELATONIN 10 MG TABLET PO (20:59)
[2024-10-21] MEDS: Senna/Docusate Sodium 1 Tablet 2 TABLET PO (20:59)
[2024-10-22] MEDS: Ensure Plus High Protein 120 ML LIQUID PO ×3 (08:08→17:19)
[2024-10-22] MEDS: Cholecalciferol (VIT D3) 25 MCG TABLET (1,000 UNITS) PO (08:08)
[2024-10-22 08:14] VITALS: BP 116/69; PULSE 82; RESP 15; TEMP 36.4; O2SAT 99
--- NOTE | 2024-10-22 08:39 | NURSING ---
Meter Shop Supervisor Note; MDS for 10/22/2024 Complete
--- NOTE | 2024-10-22 13:03 | CASEMGMT ---
Social Work IDT met with patient at bedside then two son's and BRITTNEY participated via conference call for care plan meeting. Discussed patient's progress in PT/OT/SN/RDN. Educated to [facility] insurance with NRD 10/24, EDC 10/29. Explained MOBILE WEB APPLICATION DEVELOPER completed MOCA and pt scored /30 and 26 is a normal; scored in the MCI range recommending assistance with higher level tasks, such as meds, finances and driving. Pt refused ST and to complete BIMS with this worker when attempted. Pt gets defensive with memory questioning. SW explained pt is safe to return home alone, but with additional supports and check-ins daily until pt readjusts to routine. Recommended family oversee accuracy for meds/finances, etc. Son, Shaka, asked many questions. IDT provided answers. Pt requested 3-in-1 commode at [facility]. SW educated to [facility] vs OP therapy at [facility]. SW will notify pt of DC date and coordinate services. Will continue to follow. Dior Tellez BAND SINGER DAIRY SPECIALIST
--- NOTE | 2024-10-22 19:30 | NURSING ---
Assisted to toilet/bed per pt. request LAx1 with gait belt, gait slow and unsteady at times. Offered HS care, clothing change. Patient declines, states I will wash in the morning, I want to sleep in what I'm wearing, it's comfortable. Positioned for comfort. Denies requests. Call light and personal items within reach. Bed alarm on per order and functioning properly, educated operations asst light system and encouraged patient to utilize for staff assist to promote safety, patient verbalizes understanding.
[2024-10-22] MEDS: Senna/Docusate Sodium 1 Tablet 2 TABLET PO (21:36)
[2024-10-22] MEDS: MELATONIN 10 MG TABLET PO (21:37)
--- NOTE | 2024-10-23 06:55 | NURSING ---
Patient c/o insomnia despite current order for melatonin and non-pharmacologic interventions. Written communication left for Dr. Chamberlain
[2024-10-23 07:22] LABS: Hematocrit 27.9 % (37-47); Hemoglobin 9.6 g/dL (12.0-15.0); Immature Granulocytes Count 0.040 X10^3/uL (0.0-0.0); Mean Corp Hgb Conc 34.4 g/dL (32-36); Mean Corpuscular Volume 88.6 fL (81-99); Mean Platelet Vol. 9.1 fl (6.2-12.0); NRBC Flagged by Analyzer 0 % (0-5); Platelet Count 502 K/mm3 (150-450); RBC Distribution Width CV 15.2 % (11.6-14.6); RBC Distribution Width SD 47.6 fl (35.1-43.9); Red Blood Count 3.15 M/mm3 (4.2-5.4); White Blood Count 9.6 K/mm3 (4.4-11.0)
[2024-10-23 08:09] LABS: Anion Gap 9 (5-15); BUN 23 mg/dL (4-19); BUN/Creat Ratio 28.1 RATIO (10-20); Calcium,Total 9.0 mg/dL (7.6-11.0); Carbon Dioxide 24.8 mmol/L (21.0-32.0); Chloride 102 mmol/L (98-108); Estimated Creatinine Clearance 42.74 ml/min (50-250); Glucose 90 mg/dL (70-99); Potassium 4.9 mmol/L (3.3-5.1)
[2024-10-23 08:46] VITALS: BP 111/60; PULSE 79; RESP 18; TEMP 36.6; O2SAT 96
[2024-10-23] MEDS: Cholecalciferol (VIT D3) 25 MCG TABLET (1,000 UNITS) PO (08:47)
[2024-10-23] MEDS: Senna/Docusate Sodium 1 Tablet 2 TABLET PO (08:50)
[2024-10-23] MEDS: Ensure Plus High Protein 120 ML LIQUID PO ×3 (08:50→17:20)
[2024-10-23] MEDS: Tuberculin,Purif.prot.deriv. 50 TU/ML Vial 0.1 ML ID (10:51)
--- NOTE | 2024-10-23 11:36 | NURSING ---
Addendum entered by Kalpana Olivia 10/24/24 10:21: Shaka unable to transport. Left with other son Richard to see if he would be able. Per resident, she has friends that might be able to is sons cannot. Original Note: Called Son Shaka to see if he was planning to transport resident to ortho follow-up appt on 10/27/24. Left , await return call.
[2024-10-23] MEDS: Doxepin Hydrochloride 10 MG Capsule PO (22:22)
[2024-10-24] MEDS: Cholecalciferol (VIT D3) 25 MCG TABLET (1,000 UNITS) PO (08:50)
[2024-10-24] MEDS: Ensure Plus High Protein 120 ML LIQUID PO ×3 (08:50→17:12)
[2024-10-24] MEDS: Senna/Docusate Sodium 1 Tablet 2 TABLET PO (08:50)
[2024-10-24 08:55] VITALS: BP 113/73; PULSE 84; RESP 14; TEMP 36.6; O2SAT 98
--- NOTE | 2024-10-24 12:34 | CASEMGMT ---
Social Work Insurance issued LCD 10/27, DC 10/28 AMEENA spoke with pt at bedside. Informed of DC date. SW provided NOMNC to pt and educated to appeal rights. Pt verbalized understanding and denied appeal. Pt is agreeable to DC. Pt requesting HHC. SW provided list of skilled HHC agencies within geographical area, INN with insurance, that include quality and resource data via [employer]Port guide. Pt to review and notify this worker of choices. AMEENA confirmed pts need for BSC at DC. AMEENA will contact son for transportation and assistance after DC. AMEENA sent referral to [facility] for BSC via [employer]Port. Plan: DC home alone 10/28, HHC PT/OT/AMEENA, BSC giselle sanches QUALITY CONTROLLER TRANSPORT ANALYST
--- NOTE | 2024-10-24 13:26 | DS.PCM_ITS ---
Providers Date of Admission: 10/15/24 Primary Care Physician: Dr. Raine Gomez MD Reason For Visit: RIGHT HIP FRACTURE Diagnosis Discharge Diagnosis (1) Debility: Status: Acute Code(s): R53.81 - Other malaise (2) Closed right hip fracture: Status: Resolved Code(s): S72.001A - Fracture of unspecified part of neck of right femur, initial encounter for closed fracture (3) Acute respiratory failure with hypoxia: Status: Acute Code(s): J96.01 - Acute respiratory failure with hypoxia (4) Orthostatic hypotension: Status: Acute Code(s): I95.1 - Orthostatic hypotension (5) Vitamin D deficiency: Status: Acute Code(s): E55.9 - Vitamin D deficiency, unspecified Plan 84 year old female with below past medical history hospitalized for right hip fracture, underwent right hip cemented hemiarthroplasty 10/12/[address] Estrada, postoperative course complicated by acute respiratory failure with hypoxia, orthostatic hypotension, admitted to TCU with debility, here for rehabilitation, strengthening, prior to discharge home alone. * Debility - PT/OT. * Pain - Tylenol 1000mg q8, Oxycodone 5mg q4 prn pain (4-10). * Bowel - senna/colace 2 tablets bid, Magnesium citrate 300mL daily prn. * Adult immunization - Administer pneumonia vaccine, covid vaccine, flu vaccine as appropriate. * DVT prophylaxis - Xarelto 10mg daily thru 11/11/2924. * Vitamin D deficiency - D3 25mcg daily. * Vitamin B12 deficiency - B12 1000mcg im qmonth. * Nutrition - Ensure Plus 120mL po tidcm, MVI 1 tablet daily. * Folate deficiency - Folic acid 2mg daily. * Osteoarthritis - Meloxicam 15mg qhs. Medications at Discharge Home Medications multivitamin with folic acid 400 mcg tablet (Thera) 1 tab PO DAILY Supplment 09/03/14 ascorbic acid (vitamin C) 500 mg chewable tablet (C-500) 1 g PO DAILY Supplement 10/11/24 cyanocobalamin (vitamin B-12) 1,000 mcg/mL injection solution 1,000 mcg IM QMONTH supplement 10/11/24 folic acid 1 mg tablet 2 mg PO DAILY Supplement 10/11/24 rivaroxaban 10 mg tablet (Xarelto) 10 mg PO DINNER Blood Thinner #0 tabs 10/14/24 acetaminophen 500 mg tablet 1,000 mg (2 x 500 mg) PO Q8 #0 tabs 10/24/24 cholecalciferol (vitamin D3) 25 mcg (1,000 unit) tablet 25 mcg PO DAILY #0 tabs 10/24/24 doxepin 10 mg capsule 10 mg PO QHS 30 days #30 caps 10/24/24 meloxicam 15 mg tablet 15 mg PO QHS 30 days #30 tabs 10/24/24 rivaroxaban 10 mg tablet (Xarelto) 10 mg PO DINNER 14 days #14 tabs 10/24/24 sennosides 8.6 mg-docusate sodium 50 mg tablet (Stimulant Laxative Plus) 2 tab PO BID 30 days #120 tabs 10/24/24 tramadol 50 mg tablet 50 mg PO Q6H PRN PRN Pain Score 1-10 Or Pre Pt/Ot 7 days #28 tabs 10/24/24 Hospital Course Operations - (See below.) Procedures None Summary of Care Provided Minutes Spent on Discharge: 35 Hospital Course: 84 year old female with below past medical history hospitalized for right hip fracture, underwent right hip cemented hemiarthroplasty 10/12/[address] Estrada, postoperative course complicated by acute respiratory failure with hypoxia, orthostatic hypotension, admitted to TCU with debility, here for rehabilitation, strengthening, prior to discharge home alone. Discharge home alone 10/28/2024, [facility] PT/OT/SW, BSC. BSC: Patient is confined to a single room unable to safely access toilet. Patient is confined to one level of the home environment and there is no toilet on that level. Physical Exam Const alert General Appearance: cooperative HEENT normocephalic Eyes PERRL and EOMs intact bilaterally Neck supple, no JVD and no carotid bruits Resp normal respiratory effort, normal air movement and clear to auscultation bilaterally Cardio regular rate and regular rhythm GI normal to inspection, nondistended, normoactive bowel sounds, non-tender and non-distended Extremity normal capillary refill General Extremity: Negative for edema Skin no rashes or lesions noted General Skin Exam: no breakdown Psych affect normal Appearance: appropriate Weight / BMI Weight Weight: 58.769 kg Body Mass Index (BMI) 25.2 ABG / Lab / Microbiology Data 10/23/24 06:31 10/23/24 06:31 Microbiology: Microbiology 10/20/24 11:15 Urine, Clean Catch Urine Culture - Final Presumptive E. coli D/C Instructions Discharge Activity: Return to Normal Activity, May Shower and Use Walker Weight Bearing Status: Weight bearing as tolerated Call your doctor if you observe: Fever of 101 or Higher, Inability to urinate, Inability to have a bowel movement, Shortness of breath, Dizziness, Fainting spells, Swelling in the ankles, Chest pain and Uncontrolled pain DC O2, CPAP, BIPAP Needs Home O2 Discharge instructions: No Additional Instructions: Discharge home alone 10/28/2024, [facility] PT/OT/SW, BSC. BSC: Patient is confined to a single room unable to safely access toilet. Patient is confined to one level of the home environment and there is no toilet on that level. Please Follow Up With: Elie Estrada MD When: As scheduled. Meaningful Use Info Meaningful Use Meaningful Use Diagnoses (Choose all that apply): None applicable Discharge Plan Admission Admit Date/Time: 10/15/24 14:01 Primary Reason for Your Visit: Debility. Attending Provider: Sander Chamberlain Chi Primary Care Provider: Raine Gomez Instructions Additional Instructions / Restrictions: Discharge home alone 10/28/2024, [facility] PT/OT/SW, BSC. BSC: Patient is confined to a single room unable to safely access toilet. Patient is confined to one level of the home environment and there is no toilet on that level. Discharge Orders/Prescriptions Prescriptions: New acetaminophen 500 mg Tablet 1,000 mg PO Q8 Qty: 0 0RF cholecalciferol (vitamin D3) 25 mcg (1,000 unit) Tablet 25 mcg PO DAILY Qty: 0 0RF meloxicam 15 mg Tablet 15 mg PO QHS 30 Days Qty: 30 0RF sennosides-docusate sodium [Stimulant Laxative Plus] 8.6-50 mg Tablet 2 tab PO BID 30 Days Qty: 120 0RF doxepin 10 mg Capsule 10 mg PO QHS 30 Days Qty: 30 0RF Xarelto 10 mg Tablet 10 mg PO DINNER 14 Days Qty: 14 0RF tramadol 50 mg Tablet 50 mg PO Q6H PRN PRN (Reason: Pain Score 1-10 Or Pre Pt/Ot) 7 Days Qty: 28 0RF Continued multivitamin with folic acid [Thera] 1 TABLET tablet 1 tab PO DAILY Patient Comments: supplement folic acid 1 mg tablet 2 mg PO DAILY ascorbic acid (vitamin C) [C-500] 500 mg tablet,chewable 1 g PO DAILY cyanocobalamin (vitamin B-12) 1,000 mcg/mL solution 1,000 mcg IM QMONTH Discontinued Vitamin D3 1 tab PO DAILY Patient Comments: supplement meloxicam 15 mg tablet 15 mg PO QHS sennosides-docusate sodium [Stimulant Laxative Plus] 8.6-50 mg Tablet 2 tab PO BID Qty: 0 0RF midodrine 5 mg Tablet 10 mg PO TIDCM Qty: 0 0RF acetaminophen 500 mg Tablet 1,000 mg PO Q8 PRN (Reason: Pain) Qty: 0 0RF oxycodone 5 mg Tablet 5 mg PO Q4H PRN PRN (Reason: Pain Score 4-10) Qty: 0 0RF Ensure Plus High Protein 0.08 gram-1.5 kcal/mL Liquid 120 ml PO TIDCM Qty: 0 0RF No Action Xarelto 10 mg Tablet 10 mg PO DINNER Qty: 0 0RF Referrals / Follow Up: Raine Gomez MD [Primary Care Provider, Internal Medicine] Disposition Disposition (needs filled in before D/C Order can be placed): Home Health Service
[2024-10-24] MEDS: Doxepin Hydrochloride 10 MG Capsule PO (22:01)
[2024-10-25] MEDS: Cholecalciferol (VIT D3) 25 MCG TABLET (1,000 UNITS) PO (08:03)
[2024-10-25] MEDS: Senna/Docusate Sodium 1 Tablet 2 TABLET PO (08:05)
[2024-10-25] MEDS: Ensure Plus High Protein 120 ML LIQUID PO ×2 (08:05→14:41)
[2024-10-25 09:43] VITALS: BP 100/62; PULSE 83; RESP 16; TEMP 36.8; O2SAT 97
[2024-10-25] MEDS: Doxepin Hydrochloride 10 MG Capsule PO (21:08)
[2024-10-26] MEDS: Cholecalciferol (VIT D3) 25 MCG TABLET (1,000 UNITS) PO (09:43)
[2024-10-26] MEDS: Ensure Plus High Protein 120 ML LIQUID PO (16:50)
[2024-10-26] MEDS: Senna/Docusate Sodium 1 Tablet 2 TABLET PO (21:46)
[2024-10-26] MEDS: Doxepin Hydrochloride 10 MG Capsule PO (21:47)
[2024-10-27 06:09] VITALS: PULSE 82; RESP 16; O2SAT 99
[2024-10-27 08:07] VITALS: BP 127/73; PULSE 88; RESP 18; TEMP 36.4; O2SAT 98
[2024-10-27] MEDS: Ensure Plus High Protein 120 ML LIQUID PO ×2 (08:10→16:49)
[2024-10-27] MEDS: Cholecalciferol (VIT D3) 25 MCG TABLET (1,000 UNITS) PO (08:11)
--- NOTE | 2024-10-27 12:20 | CASEMGMT ---
Social Work SW followed up with pt on HHC agency. Pt prefers [facility]. SW educated C agency will contact pt for SOC date date, but typically 2-3 days after DC, pending PCP signing orders. AMEENA phoned referral to [facility] for PT/OT/SW. Dior DUKEW
--- NOTE | 2024-10-27 13:20 | NURSING ---
Addendum entered by Kailey Patel 10/27/24 15:31: Pt back to unit after appointment. Per friend and patient new sterri strips were applied as well as a new mepilex. No other orders. Follow up appointment made. Original Note: Pt off unit with therapy and friend for car transfer practice and to leave for appointment.
--- NOTE | 2024-10-27 14:44 | CASEMGMT ---
Social Work [employer] requested this worker contact son, Richard, to answer questions and review DC plans. - SW phoned son. Son inquired what are we doing with her? I'm concerned with her cognition and I'm an hour away and son is in [place]. Son also questioned pt's DC date and insurance coverage, thinking pt chose DC date and pt had traditional Medicare. SW corrected son that pt is [facility] and they determine DC. SW reminded son that IDT discussed pt's needs and answered these question extensively in POC meeting last week. Son acknowledged. SW explained SW did coordinate skilled C PT/OT/SW - SW to assist with transition home and connecting resources. SW reiterated pt does not need 24/7 care and can return home, but IDT is also concerned about cognition, thus recommendations for daily support and check-ins to ensure accuracy for meds/finances/driving/appts, etc. SW offered family hiring HEAD OF [employer]TOGENET[employer] to assist with that support. Son stated, I thought she was going to go to a step down unit before home. SW explained TCU is SNF and 'step down' from the hospital, but pt is functioning well and able to return home. Son expressed understanding and appreciative of the answers. Son will transport tomorrow between 11-12. Dior Tellez IRONING PLEATER MANAGER DELIVERY
[2024-10-27] MEDS: Senna/Docusate Sodium 1 Tablet 2 TABLET PO (22:51)
[2024-10-27] MEDS: Doxepin Hydrochloride 10 MG Capsule PO (22:52)
[2024-10-28 02:53] VITALS: PULSE 70; O2SAT 96
[2024-10-28] MEDS: Ensure Plus High Protein 120 ML LIQUID PO ×2 (08:45→11:59)
[2024-10-28] MEDS: Cholecalciferol (VIT D3) 25 MCG TABLET (1,000 UNITS) PO (08:45)
[2024-10-28] MEDS: Senna/Docusate Sodium 1 Tablet 2 TABLET PO (08:49)
[2024-10-28 08:52] VITALS: BP 108/61; PULSE 85
[2024-10-28 12:35] VITALS: BP 128/84; PULSE 84; RESP 16; TEMP 36.6; O2SAT 96
--- NOTE | 2024-10-28 13:10 | MDS.RN ---
Information for the MDS was obtained from review of the clinical record, interview of resident, staff, and direct observation of resident?s care.
--- NOTE | 2024-10-28 16:32 | CASEMGMT ---
Social Work SW attempted to complete MDS but pt refused. Dior Tellez CARE TRANSPORT NURSE CINDER SNAPPER
== END 2024-10-28 12:53 | disposition home health service (06) | DRG 561 ==
PROVIDERS: Admitting Provider Family Medicine Geriatric Medicine; PCP Internal Medicine; Visit Provider Family Medicine Geriatric Medicine
DX: S72.001D Fracture of unspecified part of neck of right femur, subsequent encounter for closed fracture with routine healing (principal); E53.8 Deficiency of other specified B group vitamins; E55.9 Vitamin D deficiency, unspecified; M19.90 Unspecified osteoarthritis, unspecified site; I95.1 Orthostatic hypotension; W19.XXXD Unspecified fall, subsequent encounter; Z96.641 Presence of right artificial hip joint; Z79.899 Other long term (current) drug therapy; M81.0 Age-related osteoporosis without current pathological fracture; G47.00 Insomnia, unspecified
CPT/HCPCS: 36415; 80048; 81001; 82306; 82607; 85025; 87086; 87088; 92523; 97110; 97112; 97116; 97162; 97166; 97530; 97535; A4216

== ENCOUNTER 2024-11-21 06:05 | Inpatient (IN) | payer MEDICARE, OTHER, SELFPAY ==
[2024-11-21] VITALS (22 sets, daily range): BP systolic 95–130; BP diastolic 58–99; PULSE 63–138; RESP 12–19; TEMP 36.3–36.7; O2SAT 94–100; BMI 24.3; BMI 24.0
--- NOTE | 2024-11-21 06:27 | EKG12_ITS ---
Test Reason : REPEAT-CARDIOVERSION Blood Pressure : */* mmHG Vent. Rate : 134 BPM Atrial Rate : 268 BPM P-R Int : * ms QRS Dur : 68 ms QT Int : 330 ms P-R-T Axes : * -16 49 degrees QTcB Int : 492 ms Atrial flutter with 2:1 A-V conduction Abnormal ECG Confirmed by DELMY GARRETT, SHERON ([id number]), video effects editor ALVARO CANO ([id number]) on 11/24/2024 9:15:49 AM Referred By: Confirmed By: SHERON BROCK MD
--- NOTE | 2024-11-21 06:33 | EDS_ITS ---
HPI History of Present Illness Chief Complaint: Palpitations Informant: patient and friend Narrative Narrative: Patient is a 84-year-old female who reports a past medical history of osteoporosis who was in the hospital roughly 1 month ago secondary to hip surgery. She states she has been doing physical therapy at home and moving and that she was on a blood thinner for approximately 2 weeks but has been off it since that time. She states has been feeling well and denies any sick symptoms or known sick contacts. She states she awoke this morning around 2 AM to go to the bathroom. Afterwards she had difficulty sleeping and sometime between 2 and 5 AM began to feel her heart was racing and secondary to this was brought in for evaluation [facility] Medical History Vitamin D deficiency Orthostatic hypotension Acute respiratory failure with hypoxia Debility Osteoporosis Home Medications ?Medication ?Instructions ?Recorded ?Last Taken ?Type multivitamin with folic acid 400 1 tab PO DAILY Supplm ent 09/03/14 10/11/24 History mcg tablet (Thera) ascorbic acid (vitamin C) 500 mg 1 g PO DAILY Suppleme nt 10/11/24 10/11/24 History chewable tablet (C-500) cyanocobalamin (vitamin B-12) 1,000 mcg IM QMONTH supp lement 10/11/24 10/03/24 History 1,000 mcg/mL injection solution folic acid 1 mg tablet 2 mg PO DAILY Supplement 07/3010/11/24 History cholecalciferol (vitamin D3) 25 25 mcg PO DAILY #0 tab s 10/24/24 Unknown Rx mcg (1,000 unit) tablet acetaminophen 500 mg tablet 1,000 mg PO Q8 PRN fever o r pain 11/21/24 Unknown History aspirin 81 mg chewable tablet 1 tab PO DAILY 11/21/24 Unknown History (Tal Chewable Low Dose Aspirin) meloxicam 15 mg tablet 15 mg PO QHS PRN pain Unknown History Allergy/AdvReac Type Severity Reaction Status Date / Time hydrocodone Allergy hallucinati Verified 11/21/24 06:11 ons Surgical History History of right hip hemiarthroplasty History of left knee replacement Social History household members: none Smoking Status: Never smoker alcohol intake: never substance use type: does not use ROS ROS ED Constitutional Constitutional ED: Denies chills or fever(s) Eyes Eyes: Denies blurry vision or change in vision ENT ENT ED: Denies sore throat Cardiovascular Cardiovascular: Reports palpitations and racing heartbeat; Denies chest pain Respiratory/Chest Respiratory/Chest: Denies cough or dyspnea Gastrointestinal Gastrointestinal: Denies abdominal pain, diarrhea, nausea or vomiting Genitourinary Genitourinary ED: Denies dysuria Musculoskeletal Musculoskeletal: Denies back pain Integumentary Denies rash Neurologic Neurologic: Denies headache(s), paresthesias or weakness Hematologic/Lymphatic Hematologic/Lymphatic: Denies easy bleeding or easy bruising EXAM Physical Exam Const Vital Signs: 11/21/24 06:06 11/21/24 06:48 11/21/24 06:48 Temperature 97.4 F L Temperature Source Oral Pulse Rate 138 H 126 H Respiratory Rate 17 18 Respiratory Effort Normal Blood Pressure 95/76 122/86 H Blood Pressure Mean 82 98 Blood Pressure Source Pulse Ox 99 100 Oxygen Delivery Method Room Air Room Air 11/21/24 07:22 11/21/24 07:33 Temperature Temperature Source Pulse Rate 126 H 126 H Respiratory Rate 18 18 Respiratory Effort Blood Pressure 119/97 H 130/99 H Blood Pressure Mean 104 109 Blood Pressure Source Monitor Pulse Ox 100 100 Oxygen Delivery Method Room Air Room Air Positive well nourished and well developed General Appearance ED: well developed; Negative for pallor HEENT HEENT Narrative: Normocephalic atraumatic No tongue or lip swelling no oral lesions no airway edema or compromise No secondary findings in the posterior pharynx to suggest infection Eyes PERRL and EOMs intact bilaterally General Eye ED: Negative for scleral icterus Neck supple and no JVD Chest Wall palpation of chest normal Resp normal respiratory effort and clear to auscultation bilaterally Cardio Rate: other Other Details: Tachycardic rate with regular rhythm Radial and carotid pulses are equal and symmetric GI normal to inspection, nondistended, normoactive bowel sounds, non-tender, non- distended and no masses GI Narrative: No voluntary guarding or rigidity or pulsatile mass Auscultation: normoactive bowel sounds Palpation: soft Extremity Extremity Narrative: No asymmetric edema no pitting edema negative Homans' sign bilaterally Neuro oriented x3, CN's II-XII intact bilaterally and no sensory deficits noted Sensorium / Orientation: alert Motor Exam: strength 5/5 throughout Psych mental status grossly normal Skin no rashes or lesions noted General Skin Exam: Negative for jaundice or pallor MDM MDM MDM Narrative Medical decision making narrative: Patient arrived to the ER awake and alert however she was tachycardic at approximate 140 bpm and blood pressure was borderline hypotensive. She reported palpitations going on for approximately the last 3 to 4 hours. As there is concern that this could be atrial fibrillation versus atrial flutter versus SVT an EKG was obtained. EKG showed changes concerning for atrial flutter versus SVT. In order to assess for potential cause of this such as acute blood loss anemia acute kidney injury thyroid disorder or electrolyte abnormality basic labs were obtained. The EKG was reviewed by the computer training specialist Dr. Martinez. He recommends patient be given adenosine so that we can differentiate between SVT and atrial flutter. Patient was given 6 then 12 mg of adenosine and flutter waves were present and captured on rhythm strip/EKG. secondary to this she was started on a Cardizem drip. The computer training specialist was consulted once again and agrees with the drip and also recommends Eliquis. However as this is new onset atrial flutter with rapid ventricular spots he does recommend admission. Therefore the case was discussed with the hospitalist. He agrees to accept the patient for continued monitoring and care The patient does not have chest pain she is not hypoxic she did not have pleuritic chest pain and therefore even though she had surgery roughly 4 weeks ago I have low concern for a PE and do not feel the need for a CTA of the chest History & Record Review Discussion w/independent historian: Patient and Friend Lab Data Attestation: I reviewed the patient's lab results. Labs: Laboratory Results - last 24 hr 11/21/24 06:25 WBC 7.4 RBC 4.37 Hgb 13.2 Hct 39.5 MCV 90.4 MCH 30.2 MCHC 33.4 RDW Std Deviation 50.9 H RDW Coeff of Fatoumata 15.4 H Plt Count 251 MPV 9.9 Immature Gran % (Auto) 0.300 Neut % (Auto) 43.5 L Lymph % (Auto) 39.9 Cottle % (Auto) 12.8 H Eos % (Auto) 2.7 Baso % (Auto) 0.8 Absolute Neuts (auto) 3.2 Absolute Lymphs (auto) 2.97 Nucleated RBC % 0 PT 13.1 INR 1.0 APTT 25.7 Sodium 138 Potassium 3.6 Chloride 102 Carbon Dioxide 23.8 Anion Gap 12 BUN 18 Creatinine 0.88 Estim Creat Clear Calc 38.16 L Est GFR (MDRD) Non-Af 65 BUN/Creatinine Ratio 20.5 H Glucose 105 H Calcium 9.8 Magnesium 2.1 TSH 3.180 Management Discussion w/another healthcare provider: Hospitalist and Ingot Passer Discharge Plan Dx/Rx/DC Orders Clinical Impression: New onset atrial flutter, Osteoporosis Disposition Disposition: Acute Care Hospital [facility]
[2024-11-21 06:36] LABS: Hematocrit 39.5 % (37-47); Hemoglobin 13.2 g/dL (12.0-15.0); Immature Granulocytes Count 0.020 X10^3/uL (0.0-0.0); Mean Corp Hgb Conc 33.4 g/dL (32-36); Mean Corpuscular Volume 90.4 fL (81-99); Mean Platelet Vol. 9.9 fl (6.2-12.0); NRBC Flagged by Analyzer 0 % (0-5); Platelet Count 251 K/mm3 (150-450); RBC Distribution Width CV 15.4 % (11.6-14.6); RBC Distribution Width SD 50.9 fl (35.1-43.9); Red Blood Count 4.37 M/mm3 (4.2-5.4); White Blood Count 7.4 K/mm3 (4.4-11.0)
[2024-11-21] MEDS: 0.9% Normal Saline (1000mL) 1,000 ML 999 ML IV (06:43)
[2024-11-21] MEDS: Digoxin 250 MCG/ML Ampul IV (06:43)
[2024-11-21 06:50] LABS: Prothrombin Time (Protime)PT. 13.1 SECONDS (11.7-14.9)
[2024-11-21 06:51] LABS: Partial Thromboplast Time 25.7 Seconds (24.1-36.2)
[2024-11-21 07:03] LABS: Anion Gap 12 (5-15); BUN 18 mg/dL (4-19); BUN/Creat Ratio 20.5 RATIO (10-20); Calcium,Total 9.8 mg/dL (7.6-11.0); Carbon Dioxide 23.8 mmol/L (21.0-32.0); Chloride 102 mmol/L (98-108); Estimated Creatinine Clearance 38.16 ml/min (50-250); Glucose 105 mg/dL (70-99); Magnesium 2.1 mg/dL (1.5-2.2); Potassium 3.6 mmol/L (3.3-5.1)
[2024-11-21] MEDS: Adenosine 6 MG/2 ML Syringe 12 MG IV (07:08)
[2024-11-21] MEDS: Adenosine 6 MG/2 ML Syringe IV (07:08)
--- NOTE | 2024-11-21 07:17 | EKG12_ITS ---
Test Reason : PALPS Blood Pressure : */* mmHG Vent. Rate : 139 BPM Atrial Rate : * BPM P-R Int : * ms QRS Dur : 94 ms QT Int : 322 ms P-R-T Axes : * -14 38 degrees QTcB Int : 489 ms Supraventricular tachycardia Nonspecific ST abnormality Abnormal ECG Confirmed by DELMY GARRETT, SHERON ([id number]), business editor ALVARO CANO ([id number]) on 11/24/2024 9:15:40 AM Referred By: LEANN Confirmed By: SHERON BROCK MD
[2024-11-21] MEDS: Diltiazem 125 MG in Dextrose 5%-Water (100mL Bag) 100 ML IV (07:33)
--- NOTE | 2024-11-21 07:55 | PCM.HP.STD ---
HPI - General General Date of Admission: 11/21/24 Date of Service: 11/21/24 Chief Complaint: Palpitations HPI Narrative ARIEL MATA, is a 84 F with past medical history significant for recent fall with hip fracture for which patient underwent surgical intervention with right hemiarthroplasty on 10/12/2024. Patient is tolerated in physical therapy well so far however on the morning of her presentation woke up with some pain around the leg later did experience some chest discomfort with palpitations. Presented to the emergency department as a result EKG demonstrated new onset A-fib with RVR patient was started on Cardizem drip. Patient apparently converted to sinus rhythm and route to the progressive care unit. She was also found to have elevated D-dimer and CTA ordered came back negative for PE. Subsequently admitted to monitored bed for subsequent management [facility] Medical History Vitamin D deficiency Orthostatic hypotension Acute respiratory failure with hypoxia Debility Osteoporosis Home Medications ?Medication ?Instructions ?Recorded ?Last Taken ?Type multivitamin with folic acid 400 1 tab PO DAILY Supplment 09/03/14 10/11/24 History mcg tablet (Thera) ascorbic acid (vitamin C) 500 mg 1 g PO DAILY Supplement 10/11/24 10/11/24 History chewable tablet (C-500) cyanocobalamin (vitamin B-12) 1,000 mcg IM QMONTH supplement 10/11/24 10/03/24 History 1,000 mcg/mL injection solution folic acid 1 mg tablet 2 mg PO DAILY Supplement 10/11/24 10/11/24 History cholecalciferol (vitamin D3) 25 25 mcg PO DAILY #0 tabs 10/24/24 Unknown Rx mcg (1,000 unit) tablet acetaminophen 500 mg tablet 1,000 mg PO Q8 PRN fever or pain 11/21/24 Unknown History aspirin 81 mg chewable tablet 1 tab PO DAILY 11/21/24 Unknown History (Tal Chewable Low Dose Aspirin) meloxicam 15 mg tablet 15 mg PO QHS PRN pain 11/21/24 Unknown History Allergy/AdvReac Type Severity Reaction Status Date / Time hydrocodone Allergy hallucinati Verified 11/21/24 06:11 ons Surgical History History of right hip hemiarthroplasty History of left knee replacement Social History household members: none Smoking Status: Never smoker alcohol intake: never substance use type: does not use ROS ROS Narrative GENERAL: denies fever, chills, night sweats, weight loss, anorexia HEENT: denies headache, sinus congestion, or drainage, dysphagia RESPIRATORY: denies cough, sputum production, shortness of breath, dyspnea on exertion CARDIAC: Chest discomfort and palpitation GASTROINTESTINAL: denies abdominal pain, nausea, vomiting, melena, GENITOURINARY: denies dysuria, urgency, frequency, heamaturia EXTREMITY: denies swelling MUSCULOSKELETAL: denies current joint pain or tenderness NEUROLOGIC: denies focal numbness, weakness, tingling HEMATOLOGIC: denies easy bruising and/or hemorrhage INTEGUMENT: denies rashes PSYCHIATRIC: denies suicidal or homicidal ideation Vital Signs Vital Signs Vital Signs: 11/21/24 06:06 11/21/24 06:48 11/21/24 06:48 Temperature 97.4 F L Temperature Source Oral Pulse Rate 138 H 126 H Respiratory Rate 17 18 Respiratory Effort Normal Blood Pressure 95/76 122/86 H Blood Pressure Mean 82 98 Blood Pressure Source Pulse Ox 99 100 Oxygen Delivery Method Room Air Room Air 11/21/24 07:22 11/21/24 07:33 Temperature Temperature Source Pulse Rate 126 H 126 H Respiratory Rate 18 18 Respiratory Effort Blood Pressure 119/97 H 130/99 H Blood Pressure Mean 104 109 Blood Pressure Source Monitor Pulse Ox 100 100 Oxygen Delivery Method Room Air Room Air Weight Weight: 56.5 kg Body Mass Index (BMI) 24.3 Physical Exam Narrative GENERAL: cooperative HEENT: Atraumatic; normocephalic EYES; Anicteric, Normal Conjunctiva NECK; supple, normal thyroid, RESPIRATORY: Diminished to auscultation CARDIOVASCULAR: Regular S1 S2, GI: soft, normoactive bowel sounds, : No Renal angle tenderness; EXTREMITIES: No edema, no clubbing, MUSCULOSKELETAL: no muscle wasting NEURO: Awake; no lateralizing signs. SKIN: No Rash PSYCH; Flat affect Results Lab / Micro Data 11/21/24 06:25 11/21/24 06:25 Labs: Laboratory Results - last 24 hr 11/21/24 06:25: WBC 7.4, RBC 4.37, Hgb 13.2, Hct 39.5, MCV 90.4, MCH 30.2, MCHC 33.4, RDW Std Deviation 50.9 H, RDW Coeff of Fatoumata 15.4 H, Plt Count 251, MPV 9.9, Immature Gran % (Auto) 0.300, Neut % (Auto) 43.5 L, Lymph % (Auto) 39.9, [place] % (Auto) 12.8 H, Eos % (Auto) 2.7, Baso % (Auto) 0.8, Absolute Neuts (auto) 3.2, Absolute Lymphs (auto) 2.97, Nucleated RBC % 0, PT 13.1, INR 1.0, APTT 25.7, Sodium 138, Potassium 3.6, Chloride 102, Carbon Dioxide 23.8, Anion Gap 12, BUN 18, Creatinine 0.88, Estim Creat Clear Calc 38.16 L, Est GFR (MDRD) Non-Af 65, BUN/Creatinine Ratio 20.5 H, Glucose 105 H, Calcium 9.8, Magnesium 2.1, TSH 3.180 Assessment & Plan Assessment/Plan (1) New onset atrial flutter: (2) Osteoporosis: (3) Vitamin D deficiency: (4) Debility: PLAN: Plan Patient is an 84-year-old lady who presented with palpitations 1. New onset A-fib ? Patient was started on Cardizem admitted to monitored bed consult placed to cardiology and as part of patient's evaluation ordered 2D echo and TSH 2. Elevated D-dimer ? Patient underwent CTA of the chest which was negative for PE given recent surgery ordered bilateral lower extremity duplex to rule out VTE 3. Osteoporosis ? With recent fall and hip fracture with subsequent right hemiarthroplasty will continue with PT OT as tolerated 4. Vitamin D3 deficiency ? Patient is on supplements will continue 5. DVT prophylaxis ? Patient has been started on apixaban as part of management of her A-fib Time spent in the patient's overall evaluation,decision-making process, review of diagnostic data, adjustment of management, discussion with other providers, nursing nursing and ancillary staff involved in patient's care documentation, 55 Minutes Advance planning; did discuss with the patient and family (son) regarding advanced directives as well as CODE STATUS. Did explain the various scenarios involved ( FULL CODE, DNR CCA, DNR CCA with no intubation, and DNR CC and what each meant) patient patient initially wanted to remain DNR CCA with no intubation as discussed with Dr. Chamberlain his primary care physician the day prior however after involvement of patient's son and the discussion patient rescinded her decision and elected to go with full code with CPR and intubation. She also did express that she did not want to remain vegetable on the vent. Order was placed. Time spent on discussion 16 minutes. Charges/Coding Multi Select Codes Visit Charges Visit Charges: 50549 Init Hosp L2 Hospitalists' Procedures Procedures: 11350 Advncd Care Plan 30 Min
[2024-11-21] MEDS: APIXABAN 5 MG TABLET PO (08:02)
[2024-11-21 08:33] LABS: D-Dimer Quantitative (DVT/PE) 3.34 FEU/ug/m (0.27-0.49)
--- NOTE | 2024-11-21 08:40 | CT_ITS ---
PROCEDURE: CTA CHEST W/WO CONTRAST 11/21/2024 REASON FOR EXAM: ELEVATED D-DIMER TECHNIQUE: Procedure Code: [id number] Modality: CT Procedure: CTA CHEST W/WO CONTRAST Multiplanar Sagittal and Coronal images were obtained. 3D post processing was performed CONTRAST: Isovue 370 VOLUME: 96 mL One or more dose reduction techniques were used (e.g., Automated exposure control, adjustment of the mA and/or kV according to patient size, use of iterative reconstruction technique). RADIATION DOSE SUMMARY: CTDlvol: 9 mGy DLP: 133 mGycm COMPARISON: October 11, 2024, September 03, 2023 # of known CTs in the past 12 months: 0 # of known Cardiac Nuclear Medicine Studies in the past 12 months: 0 FINDINGS: Thoracic Aorta: Timing and quality of the contrast bolus is diagnostic. No evidence of aortic rupture, dissection or aneurysm. [id number] atherosclerotic plaque. Aortic branching pattern is conventional. Heart: Normal-size heart. No pericardial effusion. Hari-qy-vqikhpdl atherosclerotic plaque involving the left anterior descending coronary artery and mild plaque involving the right coronary. Pulmonary Vessels: The timing and quality of the contrast bolus is diagnostic. There is no evidence of acute or chronic pulmonary embolus. Hardware: None Lymph nodes: None appear enlarged Lungs and Airways: No consolidation, mass or worrisome nodule. Dependent subsegmental atelectasis. Pleura: No pleural effusion or pneumothorax. Small calcified pleural plaque near the anterior 3rd rib on the left. Upper Abdomen: Unremarkable Bones: No fracture CT/CTA Chest W/WO Contrast IMPRESSION: 1. No evidence of acute aortic abnormality. Aortic atherosclerosis. 2. No evidence of acute or chronic pulmonary embolus. 3. Coronary artery atherosclerosis. 4. No evidence of pneumonia. Reading Location: [id number]
--- NOTE | 2024-11-21 09:26 | ECHOD_ITS ---
Reason For Study Reason For Study: A. fib Procedure This was a 2D Doppler, Color Flow transthoracic echocardiogram. Exam performed portable in patient room. Left Ventricle Normal LV size. Left ventricular systolic function is normal. The left ventricular ejection fraction is 65 %. Stage 1 diastolic dysfunction. No regional wall motion abnormalities noted. Right Ventricle Normal RV size. Normal systolic function. Atria Normal left atrium. Normal right atrium. Mitral Valve Normal mitral valve. Tricuspid Valve Normal tricuspid valve. Aortic Valve Normal aortic valve. Trisinus/trileaflet aortic valve. Pulmonic Valve Normal pulmonic valve. Great Vessels Normal aortic root. The pulmonary artery is normal size. Inferior vena cava collapse with respiration. Pericardium/Pleural No pericardial effusion. MMode/2D Measurements & Calculations LVIDd: 2.9 cm IVSd: 1.2 cm Ao root diam: 3.1 cm LVIDs: 1.8 cm LVPWd: 1.1 cm RVDd: 3.2 cm FS: 37.3 % LAV(MOD-bp): 21.2 ml LVAd ap4: 18.1 cm2 LVAd ap2: 18.0 cm2 LAV(MOD-bp) Indexed: 13.9 ml/m2 LVLd ap4: 6.8 cm LVLd ap2: 6.5 cm LAV(MOD-sp2): 23.0 ml EDV(MOD-sp4): 38.6 ml EDV(MOD-sp2): 42.6 ml LAV(MOD-sp4): 18.4 ml EDV(sp4-el): 40.6 ml EDV(sp2-el): 42.5 ml LVAs ap4: 8.8 cm2 LVAs ap2: 9.7 cm2 LVLs ap4: 6.0 cm LVLs ap2: 5.6 cm ESV(MOD-sp4): 10.9 ml ESV(MOD-sp2): 14.5 ml ESV(sp4-el): 10.8 ml ESV(sp2-el): 14.4 ml EF(MOD-sp4): 71.7 % EF(MOD-sp2): 65.9 % EF(sp4-el): 73.3 % SV(MOD-sp4): 27.7 ml SV(MOD-sp2): 28.0 ml SV(sp4-el): 29.8 ml SI(MOD-sp4): 18.2 ml/m2 SI(MOD-sp2): 18.4 ml/m2 LA A4 area: 11.4 cm2 LA dimension(2D): 2.7 cm RA A4 area: 14.7 cm2 TAPSE: 2.1 cm Time Measurements MV dec time: 0.24 sec Doppler Measurements & Calculations MV E max marco: 64.9 cm/sec Lat Peak E' Marco: 11.5 cm/sec Med Peak E' Marco: 6.2 cm/sec MV A max marco: 72.6 cm/sec E/E' lat: 5.6 E/E' med: 10.4 MV E/A: 0.89 Ao V2 max: 135.8 cm/sec LV V1 max: 111.5 cm/sec MV dec slope: 266.2 cm/sec2 Ao max P.4 mmHg LV V1 max P.0 mmHg Ao V2 mean: 94.6 cm/sec LV V1 mean P.5 mmHg Ao mean P.1 mmHg LV V1 mean: 73.7 cm/sec Ao V2 VTI: 28.9 cm LV V1 VTI: 21.2 cm AV (velocity ratio): 0.74 PA V2 max: 83.1 cm/sec ECHO/Echo Complete Interpretation Summary Normal LV size. Left ventricular systolic function is normal. The left ventricular ejection fraction is 65 %. Stage 1 diastolic dysfunction. Ordering Physician: Richard Sorto Referring Physician: Raine Gomez M.D. Performed By: Radha Becker RDCS
--- NOTE | 2024-11-21 09:59 | PCM.CONS.C ---
Assessment & Plan Assessment/Plan (1) New onset atrial flutter: PLAN: Patient presents with new onset atrial flutter. The etiology is not clear. CT scan did not demonstrate any evidence of pulmonary embolism. My recommendation at this particular time will be as follows: Intravenous diltiazem for rate control. Start Eliquis 5 mg twice a day. Echocardiogram to assess the ventricular function. Depending on the response to the above further recommendations will be made. HPI Consult Data Date of Consult: 11/21/24 HPI Narrative HPI Narrative: ARIEL MATA, is a 84 F who presents to the emergency room with palpitations and some dyspnea on exertion and just not feeling well. She has a history of right hip hemiarthroplasty within the last month. She states she has been doing physical therapy at home and moving and that she was on a blood thinner for approximately 2 weeks but has been off it since that time. She states has been feeling well and denies any sick symptoms or known sick contacts. She states she awoke this morning around 2 AM to go to the bathroom. Afterwards she had difficulty sleeping and sometime between 2 and 5 AM began to feel her heart was racing and secondary to this was brought in for evaluation. 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 In the emergency room she was noted to be in a regular tachycardia with a rate of approximately 128 bpm. After discussion with me she was given adenosine and it demonstrated flutter waves clearly. She was then started on intravenous diltiazem and was resumed on her Eliquis. [facility] Medical History Vitamin D deficiency Orthostatic hypotension Acute respiratory failure with hypoxia Debility Osteoporosis Home Medications ?Medication ?Instructions ?Recorded ?Last Taken ?Type multivitamin with folic acid 400 1 tab PO DAILY Supplment 09/03/14 10/11/24 History mcg tablet (Thera) ascorbic acid (vitamin C) 500 mg 1 g PO DAILY Supplement 10/11/24 10/11/24 History chewable tablet (C-500) cyanocobalamin (vitamin B-12) 1,000 mcg IM QMONTH supplement 10/11/24 10/03/24 History 1,000 mcg/mL injection solution folic acid 1 mg tablet 2 mg PO DAILY Supplement 10/11/24 10/11/24 History cholecalciferol (vitamin D3) 25 25 mcg PO DAILY #0 tabs 10/24/24 Unknown Rx mcg (1,000 unit) tablet acetaminophen 500 mg tablet 1,000 mg PO Q8 PRN fever or pain 11/21/24 Unknown History aspirin 81 mg chewable tablet 1 tab PO DAILY 11/21/24 Unknown History (Tal Chewable Low Dose Aspirin) meloxicam 15 mg tablet 15 mg PO QHS PRN pain 11/21/24 Unknown History Allergy/AdvReac Type Severity Reaction Status Date / Time hydrocodone Allergy hallucinati Verified 11/21/24 06:11 ons Surgical History History of right hip hemiarthroplasty History of left knee replacement Social History household members: none Smoking Status: Never smoker alcohol intake: never substance use type: does not use ROS Constitutional Constitutional: Denies fever(s) or weight loss Eyes Eyes: Reports systems reviewed and no addt'l complaints, except as documented ENT HEENT: Reports systems reviewed and no addt'l complaints, except as documented Cardiovascular Cardiovascular: Reports dyspnea on exertion and palpitations; Denies chest pain at rest, chest pain with activity, dyspnea at rest, edema or paroxysmal nocturnal dyspnea Respiratory/Chest Respiratory/Chest: Denies dyspnea on exertion, productive cough, shortness of breath at rest or shortness of breath with exertion Gastrointestinal Gastrointestinal: Denies change in bowel habits, nausea, vomiting or weight changes Genitourinary Genitourinary: Denies difficulty urinating Musculoskeletal Musculoskeletal: Denies joint stiffness or muscle weakness Integumentary Integumentary: Denies lesions Neurologic Neurologic: Denies dizziness or syncope Psychiatric Psychiatric: Denies anxiety Endocrine Endocrinology: Denies excessive sweating or fatigue Hematologic/Lymphatic Hematologic/Lymphatic: Denies anemia Allergic/Immunologic Allergic/Immunologic: Denies seasonal rhinorrhea Physical Exam Const alert and oriented x3 HEENT normocephalic Eyes PERRL Chest inspection of chest normal Resp normal respiratory effort Cardio regular rate Rate: regular rate GI normal to inspection, nondistended, normoactive bowel sounds Extremity normal to inspection Psych mental status grossly normal Objective Data Vital Signs: Vital Signs Temp Pulse Resp BP Pulse Ox O2 Del Method 97.7 F L 85 14 120/81 H 99 Room Air 11/21/24 09:34 11/21/24 09:34 11/21/24 09:34 11/21/24 09:34 11/21/24 09:34 11/21/24 09:34 Oxygen Delivery Method Room Air Weight: 123 lb 0.287 oz Body Mass Index (BMI) 24.0 Intake & Output: Intake and Output for Last 24 Hours 11/19/24 11/20/24 11/21/24 23:59 23:59 23:59 Intake Total 1002.42 / 1002.42 Balance 1002.42 / 1002.42 Lab / Micro Data 11/21/24 06:25 11/21/24 06:25 Labs: Laboratory Results - last 24 hr 11/21/24 06:25: WBC 7.4, RBC 4.37, Hgb 13.2, Hct 39.5, MCV 90.4, MCH 30.2, MCHC 33.4, RDW Std Deviation 50.9 H, RDW Coeff of Fatoumata 15.4 H, Plt Count 251, MPV 9.9, Immature Gran % (Auto) 0.300, Neut % (Auto) 43.5 L, Lymph % (Auto) 39.9, [place] % (Auto) 12.8 H, Eos % (Auto) 2.7, Baso % (Auto) 0.8, Absolute Neuts (auto) 3.2, Absolute Lymphs (auto) 2.97, Nucleated RBC % 0, PT 13.1, INR 1.0, APTT 25.7, D-Dimer Quant (PE/DVT) 3.34 H*, Sodium 138, Potassium 3.6, Chloride 102, Carbon Dioxide 23.8, Anion Gap 12, BUN 18, Creatinine 0.88, Estim Creat Clear Calc 38.16 L, Est GFR (MDRD) Non-Af 65, BUN/Creatinine Ratio 20.5 H, Glucose 105 H, Calcium 9.8, Magnesium 2.1, TSH 3.180 11/21/24 06:28: TSH 3.200 Cardiology Labs/Tests 11/21/24 06:25: WBC 7.4, RBC 4.37, Hgb 13.2, Hct 39.5, MCV 90.4, MCH 30.2, MCHC 33.4, Plt Count 251, MPV 9.9, Immature Gran % (Auto) 0.300, Neut % (Auto) 43.5 L, Lymph % (Auto) 39.9, [place] % (Auto) 12.8 H, Eos % (Auto) 2.7, Baso % (Auto) 0.8, Absolute Neuts (auto) 3.2, Nucleated RBC % 0, PT 13.1, INR 1.0, APTT 25.7, D-Dimer Quant (PE/DVT) 3.34 H*, Sodium 138, Potassium 3.6, Chloride 102, Carbon Dioxide 23.8, Anion Gap 12, BUN 18, Creatinine 0.88, Est GFR (MDRD) Non-Af 65, BUN/Creatinine Ratio 20.5 H, Glucose 105 H, Calcium 9.8, Magnesium 2.1 Rhythm: EKG: ECHO: Stress Test: Cardiac Cath: PCI: CT Surgery: Holter monitor: EPS: PPM: CXR: Chest CT Scan: Radiography Diagnostic Testing: Radiology Impression Chest CTA 11/21/24 08:40 IMPRESSION: 1. No evidence of acute aortic abnormality. Aortic atherosclerosis. 2. No evidence of acute or chronic pulmonary embolus. 3. Coronary artery atherosclerosis. 4. No evidence of pneumonia. Reading Location: [id number] Risk Score for UA/STEMI Assesmment (YES = 1) Risk Stratification Applicable: No
[2024-11-21 10:08] LABS: Pro- Brain NATRIURETIC PEPTIDE 415 pg/mL (<=1800)
--- NOTE | 2024-11-21 10:13 | EKG12_ITS ---
Test Reason : Blood Pressure : */* mmHG Vent. Rate : 76 BPM Atrial Rate : 76 BPM P-R Int : 192 ms QRS Dur : 72 ms QT Int : 370 ms P-R-T Axes : 48 -37 47 degrees QTcB Int : 416 ms Normal sinus rhythm Left axis deviation Abnormal ECG When compared with ECG of 21-Nov-2024 07:06, MANUAL COMPARISON REQUIRED DATA IS UNCONFIRMED Confirmed by DELMY GARRETT, SHERON ([id number]), editor farm journal ALVARO CANO ([id number]) on 11/24/2024 10:05:51 AM Referred By: Confirmed By: SHERON BROCK MD
--- NOTE | 2024-11-21 11:10 | VDLE_ITS ---
Reason For Study Reason For Study: ELEVATED D-DIMER RIGHT LEFT GSV is normal. GSV is normal. CFV is compressible, spontaneous, phasic, competent CFV is compressible, spontaneous, phasic, competent, and demonstrates normal augmentation. and demonstrates normal augmentation. FV is compressible, spontaneous, phasic, competent FV is compressible, spontaneous, phasic, competent and demonstrates normal augmentation. and demonstrates normal augmentation. POP V is compressible, spontaneous, phasic, competent POP V is compressible, spontaneous, phasic, competent and demonstrates normal augmentation. and demonstrates normal augmentation. T/P Trunk is compressible. T/P Trunk is compressible. PTV is compressible. PTV is compressible. RT PerV is compressible. LT PerV is compressible. Procedure This is a venous duplex using B-mode, color flow and spectral Doppler. Exam performed portable in patient room. A preliminary report was called and/or faxed to Eri billy RN/BETHEL @ 13.30. VL/Venous Duplex US - [place] Extrem Interpretation Summary Deep veins of the lower extremities are bilaterally patent and compressible seg mentally. There is no evidence of deep vein thrombosis on either side. Valvular competence appears intact within the p roximal deep venous systems bilaterally. The great saphenous veins appear bilaterally patent and compressible segmentall y. Ordering Physician: Richard Sorto Referring Physician: aRine Gomez Performed By: Danitza Nelson, GAUTAMCS, RVT
[2024-11-21] MEDS: APIXABAN 2.5 MG TABLET (WCH) PO (20:57)
[2024-11-22] VITALS (16 sets, daily range): BP systolic 72–126; BP diastolic 45–77; PULSE 58–76; RESP 12–18; TEMP 36.3–36.8; O2SAT 66–100
[2024-11-22] MEDS: Diltiazem 125 MG in Dextrose 5%-Water (100mL Bag) 100 ML IV (04:35)
[2024-11-22 06:26] LABS: Hematocrit 36.1 % (37-47); Hemoglobin 11.8 g/dL (12.0-15.0); Immature Granulocytes Count 0.010 X10^3/uL (0.0-0.0); Mean Corp Hgb Conc 32.7 g/dL (32-36); Mean Corpuscular Volume 90.3 fL (81-99); Mean Platelet Vol. 10.9 fl (6.2-12.0); NRBC Flagged by Analyzer 0 % (0-5); Platelet Count 249 K/mm3 (150-450); RBC Distribution Width CV 15.5 % (11.6-14.6); RBC Distribution Width SD 50.9 fl (35.1-43.9); Red Blood Count 4.00 M/mm3 (4.2-5.4); White Blood Count 6.9 K/mm3 (4.4-11.0)
[2024-11-22 06:49] LABS: Anion Gap 10 (5-15); BUN 15 mg/dL (4-19); BUN/Creat Ratio 20.7 RATIO (10-20); Calcium,Total 9.4 mg/dL (7.6-11.0); Carbon Dioxide 24.5 mmol/L (21.0-32.0); Chloride 104 mmol/L (98-108); Estimated Creatinine Clearance 41.74 ml/min (50-250); Glucose 89 mg/dL (70-99); Magnesium 2.1 mg/dL (1.5-2.2); Potassium 4.0 mmol/L (3.3-5.1)
[2024-11-22] MEDS: APIXABAN 2.5 MG TABLET (WCH) PO (08:13)
--- NOTE | 2024-11-22 08:52 | PN.CARD_ITS ---
Subjective Subjective Patient seen and evaluated. Appears to be doing much better. Has converted back to sinus rhythm. Objective Data Vital Signs: Vital Signs Temp Pulse Resp BP Pulse Ox O2 Del Method 98.2 F 76 15 123/65 H 100 Room Air 11/22/24 08:00 11/22/24 08:00 11/22/24 08:00 11/22/24 08:00 11/22/24 08:00 11/22/24 08:09 Oxygen Delivery Method Room Air Weight: 123 lb 0.287 oz Body Mass Index (BMI) 24.0 Intake & Output: Intake and Output for Last 24 Hours 11/20/24 11/21/24 11/22/24 23:59 23:59 23:59 Intake Total 1090.42 / 1495.42 851.66 / 851.66 Balance 1090.42 / 1495.42 851.66 / 851.66 Lab / Micro Data 11/22/24 05:15 11/22/24 05:15 Labs: Laboratory Results - last 24 hr 11/21/24 06:25: NT pro BNP II 415 11/21/24 06:28: TSH 3.200 11/22/24 05:15: WBC 6.9, RBC 4.00 L, Hgb 11.8 L, Hct 36.1 L, MCV 90.3, MCH 29.5, MCHC 32.7, RDW Std Deviation 50.9 H, RDW Coeff of Fatoumata 15.5 H, Plt Count 249, MPV 10.9, Immature Gran % (Auto) 0.100, Neut % (Auto) 40.6 L, Lymph % (Auto) 41.0, M zahida % (Auto) 13.1 H, Eos % (Auto) 4.5, Baso % (Auto) 0.7, Absolute Neuts (auto) 2.8, Absolute Lymphs (auto) 2.81, Nucleated RBC % 0, Sodium 139, Potassium 4.0, Chloride 104, Carbon Dioxide 24.5, Anion Gap 10, BUN 15, Creatinine 0.73, Estim Creat Clear Calc 41.74 L, Est GFR (MDRD) Non-Af 82, BUN/Creatinine Ratio 20.7 H, Glucose 89, Calcium 9.4, Phosphorus 3.7, Magnesium 2.1 Cardiology Labs/Tests 11/22/24 05:15: WBC 6.9, RBC 4.00 L, Hgb 11.8 L, Hct 36.1 L, MCV 90.3, MCH 29.5, MCHC 32.7, Plt Count 249, MPV 10.9, Immature Gran % (Auto) 0.100, Neut % (Auto) 40.6 L, Lymph % (Auto) 41.0, [place] % (Auto) 13.1 H, Eos % (Auto) 4.5, Baso % (Auto) 0.7, Absolute Neuts (auto) 2.8, Nucleated RBC % 0, Sodium 139, Potassium 4.0, Chloride 104, Carbon Dioxide 24.5, Anion Gap 10, BUN 15, Creatinine 0.73, Est GFR (MDRD) Non-Af 82, BUN/Creatinine Ratio 20.7 H, Glucose 89, Calcium 9.4, Phosphorus 3.7, Magnesium 2.1 Rhythm: EKG: ECHO: Stress Test: Cardiac Cath: PCI: CT Surgery: Holter monitor: EPS: PPM: CXR: Chest CT Scan: Radiography Diagnostic Testing: Radiology Impression Chest CTA 11/21/24 08:40 IMPRESSION: 1. No evidence of acute aortic abnormality. Aortic atherosclerosis. 2. No evidence of acute or chronic pulmonary embolus. 3. Coronary artery atherosclerosis. 4. No evidence of pneumonia. Reading Location: [facility] Echocardiogram 11/21/24 09:26 Interpretation Summary Normal LV size. Left ventricular systolic function is normal. The left ventricular ejection fraction is 65 %. Stage 1 diastolic dysfunction. Ordering Physician: Richard Sorto Referring Physician: Raine Gomez M.D. Performed By: Radha Becker, RDZARA Physical Exam Const alert and oriented x3 HEENT normocephalic Eyes PERRL Chest inspection of chest normal Resp normal respiratory effort Cardio regular rate Rate: regular rate GI normal to inspection, nondistended, normoactive bowel sounds Extremity normal to inspection Psych mental status grossly normal Assessment & Plan Assessment/Plan (1) New onset atrial flutter: PLAN: Patient presents with new onset atrial flutter. The etiology is not clear. CT scan did not demonstrate any evidence of pulmonary embolism. My recommendation at this particular time will be as follows: Intravenous diltiazem for rate control to be switched over to Toprol-XL 50 mg a day l. Continue Eliquis twice a day. Echocardiogram demonstrated preserved left ventricular systolic function If the patient maintained sinus rhythm for few more hours she can be discharged for outpatient follow-up.
--- NOTE | 2024-11-22 08:54 | EKG12_ITS ---
Test Reason : AF Blood Pressure : */* mmHG Vent. Rate : 71 BPM Atrial Rate : 71 BPM P-R Int : 152 ms QRS Dur : 72 ms QT Int : 386 ms P-R-T Axes : 55 -34 31 degrees QTcB Int : 419 ms Normal sinus rhythm Left axis deviation Abnormal ECG When compared with ECG of 21-Nov-2024 10:19, MANUAL COMPARISON REQUIRED DATA IS UNCONFIRMED Confirmed by JUAN GARRETT, SHERON ([id number]), manuscript editor ALVARO CANO ([id number]) on 11/24/2024 10:05:03 AM Referred By: Juan Confirmed By: SHERON BROCK MD
[2024-11-22] MEDS: Metoprolol(XL)Succ 50 MG Tablet PO (10:37)
[2024-11-22] MEDS: 0.9% Saline Lock 10 ML Syringe IV (11:53)
--- NOTE | 2024-11-22 13:40 | DCINST_ITS ---
Discharge Instructions DC O2, CPAP, BIPAP needs Home O2 Discharge instructions: No Dressing / Incision Discharge Activity: Return to Normal Activity Follow Up Care Test Results: Test results from this visit will be discussed in further detail at your follow- up appointment, if applicable. Discharge Plan Admission Admit Date/Time: 11/21/24 07:51 Primary Reason for Your Visit: Palpitations Attending Provider: Becky Arias Primary Care Provider: Raine Gomez Consulting Providers: Blanco Martinez; Richard Sorto Instructions Patient Instructions: AFib Dc Additional Instructions / Restrictions: DISCHARGE INSTRUCTIONS PLEASE READ *Please take this with you to your next doctors appointment* - You will be discharged on Eliquis 2.5 mg twice daily, because you have been started on Eliquis he will stop taking aspirin -You will be discharged on Toprol-XL 50 mg daily -Please call your primary care provider's office upon discharge to schedule a hospital follow up within 1 week. -For any concerning signs or symptoms please call 911 or proceed to the nearest emergency department Discharge Orders/Prescriptions Prescriptions: New metoprolol succinate 50 mg Tablet Extended Release 24 Hr 50 mg PO DAILY 30 Days Qty: 30 0RF Eliquis 5 mg Tablet 2.5 mg PO BID 30 Days Qty: 30 0RF Discontinued aspirin [Tal Chewable Aspirin] 81 mg tablet,chewable 1 tab PO DAILY meloxicam 15 mg Tablet 15 mg PO QHS PRN (Reason: pain) No Action multivitamin with folic acid [Thera] 1 TABLET tablet 1 tab PO DAILY Patient Comments: supplement folic acid 1 mg tablet 2 mg PO DAILY ascorbic acid (vitamin C) [C-500] 500 mg tablet,chewable 1 g PO DAILY cyanocobalamin (vitamin B-12) 1,000 mcg/mL solution 1,000 mcg IM QMONTH cholecalciferol (vitamin D3) 25 mcg (1,000 unit) Tablet 25 mcg PO DAILY Qty: 0 0RF acetaminophen 500 mg Tablet 1,000 mg PO Q8 PRN (Reason: fever or pain) Referrals / Follow Up: Raine Gomez MD [Primary Care Provider, Internal Medicine] - Within 1 Week Disposition Disposition (needs filled in before D/C Order can be placed): Home, Self Care
--- NOTE | 2024-11-22 13:45 | DS.PCM_ITS ---
Providers Date of Admission: 11/21/24 Date of Discharge: 11/23/24 Primary Care Physician: Dr. Raine Gomez MD Consultations 11/21/24 09:26 Consult: Cardiology Routine Consulting Provider: Blanco Martinez Reason for Consult: afib EMERGENT Consult: No MD Notified: Yes Date Notified: 11/21/24 Time Notified: 07:54 Method of Notification: ED Physician Initiated Reason For Visit: AFIB Diagnosis Discharge Diagnosis (1) New onset atrial flutter: Status: Acute Code(s): I48.92 - Unspecified atrial flutter Plan #Afib/flutter with RVR #osteoporosis Medications at Discharge Home Medications multivitamin with folic acid 400 mcg tablet (Thera) 1 tab PO DAILY Supplment 09/03/14 ascorbic acid (vitamin C) 500 mg chewable tablet (C-500) 1 g PO DAILY Supplement 10/11/24 cyanocobalamin (vitamin B-12) 1,000 mcg/mL injection solution 1,000 mcg IM QMONTH supplement 10/11/24 folic acid 1 mg tablet 2 mg PO DAILY Supplement 10/11/24 cholecalciferol (vitamin D3) 25 mcg (1,000 unit) tablet 25 mcg PO DAILY vitamin #0 tabs 10/24/24 acetaminophen 500 mg tablet 1,000 mg PO Q8 PRN fever or pain 11/21/24 apixaban 5 mg tablet (Eliquis) 2.5 mg (1/2 x 5 mg) PO BID 30 days #30 tabs 11/22/24 metoprolol succinate 50 mg tablet,extended release 24 hr 50 mg PO DAILY 30 days #30 tabs 11/22/24 Hospital Course Summary of Care Provided Minutes Spent on Discharge: 25 Hospital Course: Per HPI: ARIEL MATA, is a 84 F with past medical history significant for recent fall with hip fracture for which patient underwent surgical intervention with right hemiarthroplasty on 10/12/2024. Patient is tolerated in physical therapy well so far however on the morning of her presentation woke up with some pain around the leg later did experience some chest discomfort with palpitations. Presented to the emergency department as a result EKG demonstrated new onset A-fib with RVR patient was started on Cardizem drip. Patient apparently converted to sinus rhythm and route to the progressive care unit. She was also found to have elevated D-dimer and CTA ordered came back negative for PE. Subsequently admitted to monitored bed for subsequent management INTERVAL HISTORY: Patient converted quickly to sinus rhythm after being started on Cardizem and maintained sinus rhythm. Echo with normal LV function with EF of 65% and stage I diastolic dysfunction. Cardiology evaluated, patient transitioned to p.o. metoprolol and Eliquis. On day of discharge patient doing very well and still in sinus rhythm, she improved faster than anticipated and was therefore able to be discharged 11/22/2024 with no new or acute complaints. No shortness of breath or chest pain on day of discharge. Discussed with cardiology and patient okay for discharge on metoprolol and Eliquis. All questions answered. Discharge instructions as follows: - You will be discharged on Eliquis 2.5 mg twice daily, because you have been started on Eliquis he will stop taking aspirin -You will be discharged on Toprol-XL 50 mg daily -Please call your primary care provider's office upon discharge to schedule a hospital follow up within 1 week. -For any concerning signs or symptoms please call 911 or proceed to the nearest emergency department Physical Exam Narrative General: Alert, oriented, no apparent distress HEENT: Atraumatic, normocephalic Eyes: Anicteric, normal conjunctiva, extraocular movements grossly intact Neck: Supple Respiratory: Clear to auscultation bilaterally, normal respiratory effort Cardiovascular: Regular rate and rhythm GI: Soft, nontender, nondistended Extremities: No edema Musculoskeletal: Moving all extremities Neuro: No overt focal neurological deficits Skin: No rashes appreciated Psych: Cooperative Weight / BMI Weight Weight: 55.8 kg Body Mass Index (BMI) 24.0 ABG / Lab / Microbiology Data 11/22/24 05:15 11/22/24 05:15 Laboratory: Laboratory Results - last 24 hr 11/22/24 05:15: WBC 6.9, RBC 4.00 L, Hgb 11.8 L, Hct 36.1 L, MCV 90.3, MCH 29.5, MCHC 32.7, RDW Std Deviation 50.9 H, RDW Coeff of Fatoumata 15.5 H, Plt Count 249, MPV 10.9, Immature Gran % (Auto) 0.100, Neut % (Auto) 40.6 L, Lymph % (Auto) 41.0, M zahida % (Auto) 13.1 H, Eos % (Auto) 4.5, Baso % (Auto) 0.7, Absolute Neuts (auto) 2.8, Absolute Lymphs (auto) 2.81, Nucleated RBC % 0, Sodium 139, Potassium 4.0, Chloride 104, Carbon Dioxide 24.5, Anion Gap 10, BUN 15, Creatinine 0.73, Estim Creat Clear Calc 41.74 L, Est GFR (MDRD) Non-Af 82, BUN/Creatinine Ratio 20.7 H, Glucose 89, Calcium 9.4, Phosphorus 3.7, Magnesium 2.1 Radiography Diagnostic Testing: Radiology Impression Echocardiogram 11/21/24 09:26 Interpretation Summary Normal LV size. Left ventricular systolic function is normal. The left ventricular ejection fraction is 65 %. Stage 1 diastolic dysfunction. Ordering Physician: Richard Sorto Referring Physician: Raine Gomez M.D. Performed By: Radha Becker RDCS D/C Instructions DC O2, CPAP, BIPAP Needs Home O2 Discharge instructions: No Meaningful Use Info Meaningful Use Meaningful Use Diagnoses (Choose all that apply): None applicable Discharge Plan Admission Admit Date/Time: 11/21/24 07:51 Primary Reason for Your Visit: Palpitations Attending Provider: Becky Arias Primary Care Provider: Raine Gomez Consulting Providers: Blanco Martinez; Richard Sorto Instructions Patient Instructions: AFib Dc Additional Instructions / Restrictions: DISCHARGE INSTRUCTIONS PLEASE READ *Please take this with you to your next doctors appointment* - You will be discharged on Eliquis 2.5 mg twice daily, because you have been started on Eliquis he will stop taking aspirin -You will be discharged on Toprol-XL 50 mg daily -Please call your primary care provider's office upon discharge to schedule a hospital follow up within 1 week. -For any concerning signs or symptoms please call 911 or proceed to the nearest emergency department Discharge Orders/Prescriptions Prescriptions: New metoprolol succinate 50 mg Tablet Extended Release 24 Hr 50 mg PO DAILY 30 Days Qty: 30 0RF Eliquis 5 mg Tablet 2.5 mg PO BID 30 Days Qty: 30 0RF Discontinued aspirin [Tal Chewable Aspirin] 81 mg tablet,chewable 1 tab PO DAILY meloxicam 15 mg Tablet 15 mg PO QHS PRN (Reason: pain) No Action multivitamin with folic acid [Thera] 1 TABLET tablet 1 tab PO DAILY Patient Comments: supplement folic acid 1 mg tablet 2 mg PO DAILY ascorbic acid (vitamin C) [C-500] 500 mg tablet,chewable 1 g PO DAILY cyanocobalamin (vitamin B-12) 1,000 mcg/mL solution 1,000 mcg IM QMONTH cholecalciferol (vitamin D3) 25 mcg (1,000 unit) Tablet 25 mcg PO DAILY Qty: 0 0RF acetaminophen 500 mg Tablet 1,000 mg PO Q8 PRN (Reason: fever or pain) Referrals / Follow Up: Raine Gomez MD [Primary Care Provider, Internal Medicine] - Within 1 Week Disposition Disposition (needs filled in before D/C Order can be placed): Home Health Service Charges/Coding Visit Charges Inpatient E&M: 15471 Disch Hosp
--- NOTE | 2024-11-22 14:32 | CASEMGMT ---
ARMANDO ISBELL noted Shanda order, called [facility] pharmacy, stated no prior auth required and cost is $96.38. Provided pharmacy with savings card information, pharmacy said they were able to run it through and pt will have 0 cost. Informed pt about savings card and instructed to follow up with doctor in regards to cost before refilling. Pt verablized understanding. Denies questions or concerns at this time.
--- NOTE | 2024-11-22 15:52 | CASEMGMT ---
ARMANDO CM into pt room, discussed HHC services, Pt states she is currently active with [facility] for SN, PT and OT and would like to resume, denies wanting a list of HHC agencies.
== END 2024-11-22 16:06 | disposition home health service (06) | DRG 310 ==
LOC: ED 08:03 → PCU 08:59
PROVIDERS: Admitting Provider Internal Medicine; Emergency Provider Emergency Medicine; PCP Internal Medicine; Visit Provider Internal Medicine
DX: I48.92 Unspecified atrial flutter (principal); E55.9 Vitamin D deficiency, unspecified; I48.91 Unspecified atrial fibrillation; M81.0 Age-related osteoporosis without current pathological fracture; R53.81 Other malaise; Z96.652 Presence of left artificial knee joint; Z96.641 Presence of right artificial hip joint; Z79.1 Long term (current) use of non-steroidal anti-inflammatories (NSAID); R79.1 Abnormal coagulation profile
CPT/HCPCS: 36415; 71275; 80048; 83735; 83880; 84100; 84443; 85025; 85379; 85610; 85730; 93005; 93306; 93970; 99284; Q9967; A4216; J0153

== ENCOUNTER → 2025-01-05 | Outpatient (CLI) | payer MEDICARE, OTHER, SELFPAY | END | disposition home or self-care (01) | LOC: PSN 11:21 | PROVIDERS: PCP Internal Medicine; Referring Provider Nurse Practitioner Gerontology; Visit Provider Nurse Practitioner Gerontology | DX: I48.92 Unspecified atrial flutter (principal) | CPT/HCPCS: 93225; 93226 ==

== ENCOUNTER 2025-01-20 11:00 | Outpatient (RCR) | payer MEDICARE, OTHER, SELFPAY ==
--- NOTE | 2024-12-25 13:01 | HP.PTEVAL ---
Patient's Visit Information Visit Information Visit Information: ARIEL MATA is a 84 year old F referred to Physical Therapy by Dr. Elie Estrada MD with a diagnosis of R hip alonzo MÓNICA. Date of Evaluation: 12/25/24 Physical Therapist: Ramesh Bennett, PT, ATC Visit Plan Frequency: 2x /Week Duration: 4-6 Weeks Plan: R hip strengthening, core stabilization ex's, balance and proprio, nustep, and HEP Subjective Subjective: DOS: 10/12/24- Pt had a R alonzo MÓNICA performed at that time. Pt reports she fell while walking into a restaurant at that time which resulted in a R hip fracture. Pt reports she stayed in the rehab unit at the hospital for 2 weeks, and then went home. Pt notes she had home health PT after that for 4-6 weeks until finally was released to begin outpatient PT here. Pt reports she is very limited with her ambulation at this time. Pt also notes she has difficulty with negotiating steps to get in and out of her house. Pt reports sleep difficulty at that this time secondary to pain. Pt denies LE tingling or numbness in R LE. Pt notes she was able to ambulate without an AD prior to this fall. Pt notes she has recently been treated for Afib and is feeling much better. 0/10pain in the R hip while sitting here at rest, 5/10 pain at worst (when she has been sitting and attempts to stand up) Pain R hip: Pain Intensity (Out of 10): 0 Pain Intensity Range: 5 Objective Objective: Neuro: B LE sensation is WNL to light touch TU sec MMT: L hip flex= 11, abd= 14, add= 14; R hip flex= 6, abd= 9, add= 11 #F ROM: B LE's are WFL when compared bilaterally Gait: Pt is able to ambulate 170 feet with WW until needing to rest secondary to R hip pain Balance/Special Test Scores Lower Extremity Functional Score: 26 Goals Goal 1:: Decrease R hip pain x 50% to aid with sleep Goal Time Frame: 4-6 Weeks Goal 2:: Increase R hip strength to equal 90% L hip strength to aid with stair negotiation Goal Time Frame: 4-6 Weeks Goal 3:: Pt will be able to ambulate greater than 500 feet to aid with community ambulation Goal Time Frame: 4-6 Weeks Goal 4:: I with HEP Goal Time Frame: 4-6 Weeks Rehabilitation Potential Physical Therapy Diagnosis: Pt has R hip pain, weakness, and difficulty with ambulation secondary to R hip surgery Rehabilitation Potential: Good Anticipated Interventions Patient/Client Instruction: Educate patient on: Condition and Plan of Care For the Purpose of:: To improve self management Therapeutic Exercise to Include: Strength training, Endurance training, Balance training, Gait and locomotor training, Active ROM and Dynamic Lumbar Stabilization For the Purpose of:: To decrease pain, To increase ROM and To improve muscle performance and motor function Cryotherapy (ice pack, ice massage): Yes For the Purpose of:: To decrease pain, To improve muscle performance and motor function and To increase tolerance to activity/condition/position Text: Thank you for the opportunity to evaluate your patient. For Medicare and Medicare HMO plans, please review the plan of care and approve it. It will need to be FAXED BACK to us at [phone] for Medicare purposes. For Medicare only, by signing this I certify the plan of care. Please let me know if there are questions or concerns regarding this plan of care. Physician Signature: Date:
--- NOTE | 2025-01-27 10:08 | HP.PTDCNRP_ITS ---
Patient Information Patient Information: ARIEL MATA was seen in my office for initial evaluation on 12/25/24. The following Plan of Care was established for this patient: POC Established Initial Frequency: 2x /Week Initial Duration: 4-6 Weeks Anticipated Interventions Patient/Client Instruction: Educate patient on: Condition and Plan of Care For the Purpose of:: To improve self management Therapeutic Exercise to Include: Strength training, Endurance training, Balance training, Gait and locomotor training, Active ROM and Dynamic Lumbar Stabiliz ation For the Purpose of:: To decrease pain, To increase ROM and To improve muscle performance and motor function Cryotherapy (ice pack, ice massage): Yes For the Purpose of:: To decrease pain, To improve muscle performance and motor function and To increase tolerance to activity/condition/position Last Seen Last Seen: This patient was last seen in our office . Pertinent comments regarding their Physical therapy will appear below: Pt is transferring PT care to a clinic in [place] At this point I will be discontinuing this patient from physical therapy. I would be happy to see this patient again in the future if found appropriate by the physician. Thank you! Ramesh Bennett, PT, ATC Balance/Gait/Functional tests Balance/Special Test Scores Lower Extremity Functional Score: 26
== END 2025-01-20 19:00 | disposition home or self-care (01) ==
LOC: PT 11:00
PROVIDERS: PCP Internal Medicine; Referring Provider Orthopaedic Surgery Sports Medicine; Visit Provider Orthopaedic Surgery Sports Medicine
DX: Z96.641 Presence of right artificial hip joint (principal); Z98.890 Other specified postprocedural states; Z47.32 Aftercare following explantation of hip joint prosthesis
CPT/HCPCS: 97110; 97161